=== PATIENT | male | born 1955 | race Caucasian/White ===

== ENCOUNTER 2016-05-22 07:26 | Outpatient (CLI) | payer OTHER, MEDICARE ==
[~2016-05-22] VITALS: Ht 193 cm; Wt 136.1 kg
[~2016-05-22 07:26] MED LIST: ACET500T68 PO; ASPI325T4 PO; CALC667C6 PO; CEPH-264 PO; CEPH500C PO; DOXY100C2 PO; HYDR-2678 PO; Hydralazine Hcl PO; INSU100I13 SQ; INSU100V SQ; LINE600T PO; LISI-334 PO; LOVA20TA2 PO; METO25TA4 PO; PRAV20TA2 PO; Sodium Bicarbonate PO; WARF5TAB7 PO
[2016-05-22] MEDS ORDERED: FOLI0.8T30 PO (08:00)
[2016-05-22] MEDS ORDERED: INSU100I13 SQ (08:00)
[2016-05-22] MEDS ORDERED: INSU100I11 SQ ×2 (08:00)
[2016-05-22] MEDS ORDERED: ASPI325T4 PO (08:00)
[2016-05-22 08:13] LABS: BASO # 0.1 x10^3/uL (0.0-0.2); BASO % 1 % (0-3); EOS % 2 % (0-3); HEMATOCRIT 35.6 % (39.0-53.0); HEMOGLOBIN 11.6 g/dL (13.0-17.5); LYMPH # 2.1 x10^3/uL (1.0-4.8); LYMPH % 18 % (24-48); MEAN CORPUSCULAR HEMOGLOBIN 31 pg (25-35); MEAN CORPUSCULAR HGB CONC 33 g/dL (31-37); MEAN CORPUSCULAR VOLUME 95 fL (79-100); MONO % 6 % (0-9); NEUT % 73 % (31-73); PLATELET COUNT 235 x10^3/uL (140-400); RED BLOOD COUNT 3.74 x10^6/uL (4.30-5.70); RED CELL DISTRIBUTION WIDTH 14.1 % (11.5-14.5); WHITE BLOOD COUNT 11.5 x10^3/uL (4.0-11.0)
[2016-05-22 08:22] LABS: INR 1.7 (0.8-1.1); PROTHROMBIN TIME PATIENT 19.3 SEC (11.7-14.0)
[2016-05-22 09:10] VITALS: BP 149/64
[2016-05-22] MEDS ORDERED: HEPARIN for IV BOLUS 10,000 UNIT/10 ML VIAL. ONE (10:55)
[2016-05-22] MEDS ORDERED: LIDOCAINE 1%/EPI 1:100,000 20 ML VIAL. ONE (10:55)
[2016-05-22] MEDS ORDERED: MIDAZOLAM HCL/PF 5 MG/5 ML VIAL ONE (11:01)
[2016-05-22] MEDS ORDERED: CEFAZOLIN 1GM IVPB FOR OMNI 50 ML IV ONE ×2 (11:01→11:15)
[2016-05-22] MEDS ORDERED: FENTANYL PF 250 MCG/5 ML VIAL. ONE (11:01)
[2016-05-22] MEDS ORDERED: IOHEXOL 300 MG/ML 50 ML VIAL. ONE (11:12)
[2016-05-22] MEDS ORDERED: FENTANYL PF 250 MCG/5 ML VIAL. IV ONE (11:15)
[2016-05-22] MEDS ORDERED: MIDAZOLAM HCL/PF 5 MG/5 ML VIAL IV ONE (11:15)
[2016-05-22] MEDS ORDERED: LIDOCAINE 1%/EPI 1:100,000 20 ML VIAL. IJ ONE (11:15)
[2016-05-22 11:41] VITALS: BP 122/64
--- NOTE | 2016-05-22 11:55 | PDOC ---
MODERATE SEDATION ASSESSMENT RISKS/ALTERNATIVES Risks/Alternatives Risks and alternatives of this type of sedation and procedure discussed with: RISK/ALTERNATIVES: Patient H & P ON CHART H & P H & P on chart and reviewed for co-morbid conditions and appropriate labs. H&P ON CHART: Yes STATUS PREG STATUS ASSESSED: N/A MEDS/ALLERGIES REVIEWED Meds/Allergies Reviewed Medications and Allergies including time and route of recently administered narcotics and sedatives. MEDS/ALLERGIES REVIEWED: Yes ASA RATING ASA RATING: III AIRWAY ASSESSMENT Airway Assessment Airway patency, oral function limitations, presence of caps, crowns, dentures, partials, and ability to extend neck assessed. AIRWAY ASSESSMENT: Yes MALLAMPATI SCORE MALLAMPATI SCORE: III PRE-SEDATION ASSESSMENT PRE-SEDATION ASSESSMENT: Yes TIFFANIE MODI MD May 22, 2016 11:55
--- NOTE | 2016-05-22 12:00 | PDOC1 ---
History and Physical Date of Procedure Date of Admission 05/22/16 Procedure Procedure Fluoro guided replacement tunneled HDC Indication Indication ESRD. Poorly functioning indwelling tunneled HDC. Past Medical History Past Medical History Seer Nursing Pre procedure PMH Past Surgical History Past Surgical History See Nursing Pre procedure PSH Current Medications Current Medications Current Medications Heparin Sodium (Porcine) 10,000 unit STK-MED ONCE .ROUTE ; Start 05/22/16 at 10: 55; Stop 05/22/16 at 10:56; Status DC Lidocaine/ Epinephrine 20 ml 20 ml STK-MED ONCE .ROUTE ; Start 05/22/16 at 10:55 ; Stop 05/22/16 at 10:56; Status DC Heparin Sodium/ Sodium Chloride 500 ml @ As Directed STK-MED ONCE .ROUTE ; Start 05/22/16 at 10:56; Stop 05/22/16 at 10:57; Status DC Midazolam HCl (Versed) 5 mg STK-MED ONCE .ROUTE ; Start 05/22/16 at 11:01; Stop 05/22/16 at 11:02; Status DC Fentanyl Citrate 250 mcg 250 mcg STK-MED ONCE .ROUTE ; Start 05/22/16 at 11:01; Stop 05/22/16 at 11:02; Status DC Cefazolin Sodium (Ancef 1gm Ivpb For Omni) 50 ml @ As Directed STK-MED ONCE IV ; Start 05/22/16 at 11:01; Stop 05/22/16 at 11:02; Status DC Heparin Sodium/ Sodium Chloride 1,000 unit 1X ONCE IART Last administered on 11:15; Start 05/22/16 at 11:15; Stop 05/22/16 at 11:16; Status DC Midazolam HCl (Versed) 5 mg 1X ONCE IV Last administered on 05/22/16 11:15; Start 05/22/16 at 11:15; Stop 05/22/16 at 11:16; Status DC Fentanyl Citrate (Fentanyl 5ml Vial) 250 mcg 1X ONCE IV Last administered on 11:15; Start 05/22/16 at 11:15; Stop 05/22/16 at 11:16; Status DC Lidocaine/ Epinephrine 20 ml 20 ml 1X ONCE IJ Last administered on 05/22/16 11:15; Start 05/22/16 at 11:15; Stop 05/22/16 at 11:16; Status DC Cefazolin Sodium (Ancef 1gm Ivpb For Omni) 50 ml @ 0 mls/hr 1X ONCE IV Last administered on 05/22/16 11:15; Start 05/22/16 at 11:15; Stop 05/22/16 at 11:16 ; Status DC Heparin Sodium (Porcine) 2,600 unit 1X ONCE INT CAT Last administered on 11:15; Start 05/22/16 at 11:15; Stop 05/22/16 at 11:16; Status DC Iohexol (Omnipaque 300 Mg/ml) 50 ml STK-MED ONCE .ROUTE ; Start 05/22/16 at 11: 12; Stop 05/22/16 at 11:13; Status DC Active Scripts Active Reported Aspirin 325 Mg Tablet 1 Tab PO DAILY Metoprolol Tartrate 25 Mg Tablet 50 Mg PO BID Warfarin Sodium 5 Mg Tablet 5 Mg PO DAILY Humalog (Insulin Lispro) 100 Unit/1 Ml Insuln.pen 54 Unit SQ DAILYBFRSUP Humalog (Insulin Lispro) 100 Unit/1 Ml Insuln.pen 50 Unit SQ BIDACBL Lantus Solostar (Insulin Glargine,Hum.rec.anlog) 100 Unit/1 Ml Insuln.pen 64 Unit SQ BID Allergies Allergies: Coded Allergies: I S O L A T I O N *CONTACT* (Verified Allergy, Unknown, 04/17/15) mrsa + No Known Medication Allergies (Verified Allergy, Unknown, 04/17/15) Physical Exam Vital Signs Vital Signs Date Time Temp Pulse Resp B/P Pulse Ox O2 Delivery O2 Flow Rate FiO2 05/22/16 11:41 80 16 98 Nasal Cannula 2.0 05/22/16 09:10 99.2 149/64 99.2 Lungs: Clear to auscultation Heart: Regular rate Psych/Mental Status: Mental status NL Other Right IJ tunneled HDC in place. Assessment Assessment 60 YO male with ESRD and no functioning AV access. Indwelling rt IJ tunneled HDC is poorly functioning. Problems: Plan Plan Fluoro guided complete replacement of tunneled HDC. Plan same venous access, new SubQ tunnel, and balloon disruption of any fibrin sheath. TIFFANIE MODI MD May 22, 2016 12:00
[2016-05-22 12:04] VITALS: BP 133/72
--- NOTE | 2016-05-22 12:05 | PDOC ---
Exam Environmental Studies Faculty Member Environmental Studies Faculty Member Rudy Bridge Ironworker Helper Bridge Ironworker Helper Melissa Zelaya Pre-Procedure Diagnosis Pre-Procedure Diagnosis ESRD. No functioning AV access. Poorly functioning tunneled HDC. Tunneled HDC replacement has been requested. Post-Procedure Diagnosis Post-Procedure Diagnosis Same Procedure Performed Procedure Performed Fluoro guided tunneled HDC replacement--same rt IJ access--new subQ tunnel-- balloon disruption of SVC-RA fibrin sheath Type of Anesthesia Type of Anesthesia Local + Mod sedation Estimated Blood Loss EBL: Minimal Specimens Specimans 15.5F 28cm right IJ DuraMax tunneled HDC removed and discarded Drain/Tubes Drains/Tubes New 15.5F 28cm DuraMax rt IJ tunneled HDC inserted Condition of Patient Condition of Patient Stable. No apparent complication. Disposition Disposition Home from [facility] post recovery, if no bleeding or other issues. F/u with Renal. OK to use new tunneled HDC. Full report to follow. TIFFANIE MODI MD May 22, 2016 12:05
[2016-05-22 12:13] VITALS: BP 139/65
--- NOTE | 2016-05-22 17:02 | RAD ---
Fluoroscopy guided complete replacement of tunneled hemodialysis catheter through same right IJ venous access Indication: 60-year-old male with end stage renal disease. He has no functioning AV access. His indwelling right IJ tunneled hemodialysis catheter is now functioning poorly. Tunneled dialysis catheter replacement has been requested by renal. Fluoro time: 1.0 minute Kerma-Area Product: 8 Gycm2 Moderate sedation: 32 minutes moderate sedation was provided utilizing a total of 3 mg Versed and 150 mcg fentanyl, IV. The patient was appropriately monitored by a qualified independent observer throughout the time of moderate sedation. Antibiotic: A single dose of Ancef was administered within 1 hour of the procedure start time. Sterility: All elements of maximal sterile barrier technique, including the use of a cap, mask, sterile gown, sterile gloves, large sterile sheet, appropriate hand hygiene, and 2% chlorhexidine for cutaneous antisepsis (or acceptable alternative antiseptic per current guidelines) were utilized. Procedure: Informed consent was obtained from the patient. He was placed supine on the angiography table. Right neck and upper chest were prepped and draped in the usual sterile fashion, utilizing all elements of maximal sterile barrier technique, as described above. Moderate sedation was provided with IV Versed and fentanyl. 1 g Ancef was given IV, prophylactically. Using aseptic technique and local anesthesia, a small supraclavicular skin incision was made overlying the patient's indwelling, poorly functioning right IJ 15.5 Peruvian 28 cm dura Max tunneled dialysis catheter. Subsequently, utilizing a combination of blunt and sharp dissection, the underlying dialysis catheter was exposed, was clamped, and was divided. The distal, clamped segment of the dialysis catheter was then exchanged over an Amplatz wire for a 12 mm x 40 mm ACADEMIC SUPPORT ASSISTANT balloon, which was utilized to perform balloon maceration of residual fibrin sheath within right atrium and superior vena cava. The ACADEMIC SUPPORT ASSISTANT balloon was then exchanged over the Amplatz wire for a 16 Peruvian peel-away sheath. Using aseptic technique and local anesthesia, a new small skin incision was then made along upper anterior lateral aspect of right chest. A subcutaneous tunnel was then fashioned between the chest and supraclavicular incisions. A new 15.5 Peruvian 28 cm dura Max dialysis catheter was pulled through the subcutaneous tunnel from inferior to superior, utilizing the tunneling device provided. The new dura Max catheter was then easily advanced through the 16 Peruvian peel-away sheath and was positioned with its tip at the level of mid right atrium utilizing fluoroscopic guidance. The catheter was demonstrated to flush and aspirate normally, was packed, and was secured at the chest exit site utilizing suture and sterile dressing. The supraclavicular incision was then closed with 4-0 Vicryl, Steri-Strips, and sterile dressing. Attention was then turned to the remaining proximal fragment of the pre-existing right IJ tunneled dialysis catheter. Using aseptic technique and local anesthesia, retention cuff of the proximal catheter fragment was freed from surrounding soft tissues within the previous subcutaneous tunnel utilizing a small mosquito hemostat introduced through the right chest skin exit site. The proximal catheter fragment was then easily removed utilizing gentle traction. A sterile dressing was applied. Patient tolerated the procedures well without apparent complication. Complete removal of the previous dialysis catheter and satisfactory position of the new dialysis catheter was confirmed with pre and postprocedure fluoroscopic spot images. Impression: Successful, uneventful fluoroscopy guided complete replacement of right chest tunneled hemodialysis catheter, via same right IJ venous access, but new subcutaneous tunnel, as described.
== END 2016-05-22 13:00 | disposition home or self-care (01) ==
LOC: INTRAD 07:26
PROVIDERS: ATTEND Internal Medicine Nephrology
DX: I12.0 Hypertensive chronic kidney disease with stage 5 chronic kidney disease or end stage renal disease (principal); N18.6 End stage renal disease; Z99.2 Dependence on renal dialysis; G62.9 Polyneuropathy, unspecified; E78.00 Pure hypercholesterolemia, unspecified; I10 Essential (primary) hypertension; I95.9 Hypotension, unspecified; E66.9 Obesity, unspecified; E11.9 Type 2 diabetes mellitus without complications; Z87.891 Personal history of nicotine dependence; D64.9 Anemia, unspecified
CPT/HCPCS: 36415; 36581; 77001; 85027; 85610; A4215; C1750; C1758; C1892; J0690; J2250; J3010; J3490

== ENCOUNTER 2016-11-06 05:36 | Outpatient (CLI) | payer OTHER, MEDICARE ==
[~2016-11-06] VITALS: Ht 193 cm; Wt 149.7 kg
[~2016-11-06 05:36] MED LIST changes: -ASPI325T4 PO; +ASPI325T8 PO; +FOLI0.8T30 PO; +INSU100I11 SQ
[2016-11-06 07:21] LABS: BASO # 0.1 x10^3/uL (0.0-0.2); BASO % 1 % (0-3); EOS % 4 % (0-3); HEMOGLOBIN 12.2 g/dL (13.0-17.5); LYMPH # 2.7 x10^3/uL (1.0-4.8); LYMPH % 26 % (24-48); MEAN CORPUSCULAR HEMOGLOBIN 33 pg (25-35); MEAN CORPUSCULAR HGB CONC 32 g/dL (31-37); MEAN CORPUSCULAR VOLUME 101 fL (79-100); MONO % 8 % (0-9); NEUT % 62 % (31-73); PLATELET COUNT 236 x10^3/uL (140-400); RED BLOOD COUNT 3.75 x10^6/uL (4.30-5.70); RED CELL DISTRIBUTION WIDTH 18.1 % (11.5-14.5); WHITE BLOOD COUNT 10.6 x10^3/uL (4.0-11.0)
[2016-11-06 07:30] VITALS: BP 98/56
[2016-11-06 07:32] LABS: INR 1.3 (0.8-1.1); PROTHROMBIN TIME PATIENT 15.3 SEC (11.7-14.0)
[2016-11-06] MEDS ORDERED: LIDOCAINE 1%/EPI 1:100,000 20 ML VIAL. ONE (08:06)
[2016-11-06] MEDS ORDERED: fentaNYL PF VIAL 100 MCG/2 ML VIAL ONE (08:32)
[2016-11-06] MEDS ORDERED: MIDAZOLAM HCL/PF 2 MG/2 ML VIAL. ONE (08:32)
[2016-11-06] MEDS ORDERED: MIDAZOLAM HCL/PF 2 MG/2 ML VIAL. IV ONE (08:45)
[2016-11-06] MEDS ORDERED: fentaNYL PF VIAL 100 MCG/2 ML VIAL IV ONE (08:45)
[2016-11-06] MEDS ORDERED: LIDOCAINE 1%/EPI 1:100,000 20 ML VIAL. INJ ONE (08:45)
[2016-11-06 08:53] VITALS: BP 106/61
[2016-11-06 09:09] VITALS: BP 91/50
[2016-11-06 09:24] VITALS: BP 97/50
[2016-11-06 09:39] VITALS: BP 105/55
--- NOTE | 2016-11-07 16:09 | RAD ---
Removal of right internal jugular tunnel dialysis catheter 11/07/2016 Indication: Catheter no longer needed Discussion: The risks and benefits of the procedure were discussed patient. Consent was obtained. The right chest including the previously dialysis catheter were prepped and draped using sterile barrier technique. 1% lidocaine without epinephrine was administered to the skin surrounding the catheter exit site. Using minimal blunt and sharp dissection the catheter cuff was freed and the catheter removed intact. Manual pressure was held to achieve hemostasis. No immediate complications were identified. Sterile dressing was applied. Impression: Successful removal of right internal jugular tunnel dialysis catheter
== END 2016-11-06 09:56 | disposition home or self-care (01) ==
LOC: INTRAD 05:36
PROVIDERS: ATTEND Internal Medicine Nephrology
DX: I12.0 Hypertensive chronic kidney disease with stage 5 chronic kidney disease or end stage renal disease (principal); E11.22 Type 2 diabetes mellitus with diabetic chronic kidney disease; N18.6 End stage renal disease; Z99.2 Dependence on renal dialysis; E78.00 Pure hypercholesterolemia, unspecified; I82.409 Acute embolism and thrombosis of unspecified deep veins of unspecified lower extremity; E66.9 Obesity, unspecified; Z68.44 Body mass index [BMI] 60.0-69.9, adult; Z86.39 Personal history of other endocrine, nutritional and metabolic disease; D64.9 Anemia, unspecified; Z86.14 Personal history of Methicillin resistant Staphylococcus aureus infection
CPT/HCPCS: 36415; 36589; 85027; 85610; C1887; J2250; J3010; J3490; 99152

== ENCOUNTER 2017-01-21 14:05 | Emergency (ER) | payer OTHER, MEDICARE ==
[~2017-01-21] VITALS: Ht 193 cm; Wt 150.1 kg
[2017-01-21] MEDS ORDERED: TRANEXAMIC ACID 1,000 MG/10 ML VIAL. TOP ONE (15:00)
[2017-01-21] MEDS ORDERED: THROMBIN TOPICAL 5,000 UNIT VIAL. TP ONE (15:00)
--- NOTE | 2017-01-21 15:06 | PHYS DOC ---
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 Patient last accessed fistula this morning and completed dialysis at 11 AM. 1 hour prior to ED arrival, patient reports spontaneous bleeding from fistula site. EMS was contacted and noted hemorrhage. Compression dressing was placed with temper control bleeding. Patient's blood pressure is normal. He is compliant with medications. Patient has not had INR checked recently. Denies dizziness lightheadedness chest pain and palpitations. AV fistula was placed at [facility]. Review of Systems Review of Systems Review symptoms as per history of present illness. All other review symptoms are negative. Current Medications Current Medications Current Medications Medications (Trade) Dose Ordered Sig/Cristian Start Time Stop Time Status Last Admin Dose Admin Thrombin 5,000 unit 1X ONCE 01/21/17 15:00 01/21/17 15:03 DC Tranexamic Acid (Cyklokapron) 1,000 mg 1X ONCE 01/21/17 15:00 01/21/17 15:03 DC Allergies Allergies Allergies Coded Allergies Type Severity Reaction Last Updated Verified I S O L A T I O N *CONTACT* Allergy Unknown 04/17/15 Yes No Known Medication Allergies Allergy Unknown 04/17/15 Yes Physical Exam Physical Exam Constitutional: Well developed, well nourished, no acute distress, non-toxic appearance. [] HENT: Normocephalic, atraumatic, bilateral external ears normal, oropharynx moist, no oral exudates, nose normal. [] Eyes: PERRLA, EOMI, conjunctiva normal, no discharge. [] Neck: Normal range of motion, no tenderness, supple, no stridor. [] Cardiovascular:Heart rate regular rhythm, no murmur [] Lungs & Thorax: Bilateral breath sounds clear to auscultation [] Extremities: Warm, bloodsoaked bandage with bleeding from brachial AV fistula, bleeding from dialysis insertion site, pulse with palpable thrill, [] Neurologic: Alert and oriented X 3, normal motor function, normal sensory function, no focal deficits noted. [] Psychologic: Affect normal, judgement normal, mood normal. [] Current Patient Data Vital Signs Vital Signs Date Time Temp Pulse Resp B/P (MAP) Pulse Ox O2 Delivery O2 Flow Rate FiO2 01/21/17 14:10 98.6 110 20 148/75 (99) 94 Room Air 98.6 Lab Values Laboratory Tests Test 01/21/17 15:10 White Blood Count 12.1 x10^3/uL (4.0-11.0) H Red Blood Count 3.53 x10^6/uL (4.30-5.70) L Hemoglobin 11.4 g/dL (13.0-17.5) L Hematocrit 34.1 % (39.0-53.0) L Mean Corpuscular Volume 97 fL (79-100) Mean Corpuscular Hemoglobin 32 pg (25-35) Mean Corpuscular Hemoglobin Concent 34 g/dL (31-37) Red Cell Distribution Width 16.0 % (11.5-14.5) H Platelet Count 276 x10^3/uL (140-400) Neutrophils (%) (Auto) 78 % (31-73) H Lymphocytes (%) (Auto) 14 % (24-48) L Monocytes (%) (Auto) 4 % (0-9) Eosinophils (%) (Auto) 3 % (0-3) Basophils (%) (Auto) 1 % (0-3) Neutrophils # (Auto) 9.4 x10^3uL (1.8-7.7) H Lymphocytes # (Auto) 1.7 x10^3/uL (1.0-4.8) Monocytes # (Auto) 0.5 x10^3/uL (0.0-1.1) Eosinophils # (Auto) 0.4 x10^3/uL (0.0-0.7) Basophils # (Auto) 0.1 x10^3/uL (0.0-0.2) Prothrombin Time 44.9 SEC (11.7-14.0) H Prothrombin Time INR 5.2 (0.8-1.1) *H Sodium Level 138 mmol/L (136-145) Potassium Level 3.9 mmol/L (3.5-5.1) Chloride Level 96 mmol/L (98-107) L Carbon Dioxide Level 36 mmol/L (21-32) H Anion Gap 6 (6-14) Blood Urea Nitrogen 19 mg/dL (8-26) Creatinine 5.4 mg/dL (0.7-1.3) H Estimated GFR (Cockcroft-Gault) 10.9 BUN/Creatinine Ratio 4 (6-20) L Glucose Level 197 mg/dL (70-99) H Calcium Level 9.3 mg/dL (8.5-10.1) Total Bilirubin 0.3 mg/dL (0.2-1.0) Aspartate Amino Transferase (AST) 22 U/L (15-37) Alanine Aminotransferase (ALT) 34 U/L (16-63) Alkaline Phosphatase 47 U/L (46-116) Total Protein 8.4 g/dL (6.4-8.2) H Albumin 3.1 g/dL (3.4-5.0) L Albumin/Globulin Ratio 0.6 (1.0-1.7) L Laboratory Tests 01/21/17 15:10 Laboratory Tests 01/21/17 15:10 EKG EKG [] Radiology/Procedures Radiology/Procedures [] Course & Med Decision Making Course & Med Decision Making Pertinent Labs and Imaging studies reviewed. (See chart for details) [Patient's INR is 5.8. Bleeding continued to occur despite use of bandage per EMS. Bleeding was eventually stop with assistance of fellow colleague Dr. Vázquez. Patient's AV fistula was briefly stopped with pressure and wound adhesive was applied over the insertion site with Steri-Strips on top. This process was repeated. Bleeding stopped. Patient instructed to hold Coumadin 2 days and recheck INR. ] Dragon Disclaimer Dragon Disclaimer This electronic medical record was generated, in whole or in part, using a voice recognition dictation system. Departure Departure Impression: Primary Impression: Bleeding due to dialysis catheter placement Additional Impression: Warfarin anticoagulation Disposition: 01 HOME, SELF-CARE Referrals: CHUCKY MENA MD (PCP) Problem Qualifiers MERCY ROGEL DO Jan 21, 2017 15:06
[2017-01-21 15:21] LABS: BASO # 0.1 x10^3/uL (0.0-0.2); BASO % 1 % (0-3); EOS % 3 % (0-3); HEMATOCRIT 34.1 % (39.0-53.0); HEMOGLOBIN 11.4 g/dL (13.0-17.5); LYMPH # 1.7 x10^3/uL (1.0-4.8); LYMPH % 14 % (24-48); MEAN CORPUSCULAR HEMOGLOBIN 32 pg (25-35); MEAN CORPUSCULAR HGB CONC 34 g/dL (31-37); MEAN CORPUSCULAR VOLUME 97 fL (79-100); MONO % 4 % (0-9); NEUT % 78 % (31-73); PLATELET COUNT 276 x10^3/uL (140-400); RED BLOOD COUNT 3.53 x10^6/uL (4.30-5.70); WHITE BLOOD COUNT 12.1 x10^3/uL (4.0-11.0)
[2017-01-21 15:36] LABS: CALCIUM 9.3 mg/dL (8.5-10.1); CREATININE 5.4 mg/dL (0.7-1.3); GFR 10.9; POTASSIUM 3.9 mmol/L (3.5-5.1)
[2017-01-21 15:37] LABS: PROTHROMBIN TIME PATIENT 44.9 SEC (11.7-14.0)
[2017-01-21 15:42] LABS: ALBUMIN 3.1 g/dL (3.4-5.0); ALBUMIN/GLOBULIN RATIO 0.6 (1.0-1.7); TOTAL BILIRUBIN 0.3 mg/dL (0.2-1.0); TOTAL PROTEIN 8.4 g/dL (6.4-8.2)
[2017-01-21 15:45] LABS: INR 5.2 (0.8-1.1)
[2017-01-21 16:35] VITALS: BP 129/72
== END 2017-01-21 16:45 | disposition home or self-care (01) ==
LOC: ER 14:05
DX: T82.590A Other mechanical complication of surgically created arteriovenous fistula, initial encounter (principal); E11.40 Type 2 diabetes mellitus with diabetic neuropathy, unspecified; I12.9 Hypertensive chronic kidney disease with stage 1 through stage 4 chronic kidney disease, or unspecified chronic kidney disease; E11.22 Type 2 diabetes mellitus with diabetic chronic kidney disease; N18.9 Chronic kidney disease, unspecified; E78.00 Pure hypercholesterolemia, unspecified; Z79.01 Long term (current) use of anticoagulants; Z86.711 Personal history of pulmonary embolism; Z86.718 Personal history of other venous thrombosis and embolism; Z99.2 Dependence on renal dialysis; Z91.041 Radiographic dye allergy status; Y84.1 Kidney dialysis as the cause of abnormal reaction of the patient, or of later complication, without mention of misadventure at the time of the procedure; Y92.89 Other specified places as the place of occurrence of the external cause
CPT/HCPCS: 36415; 80053; 85025; 85610; 99284

== ENCOUNTER 2017-06-26 14:13 | Emergency (ER) | payer OTHER, MEDICARE ==
[2017-06-26 15:16] LABS: ADD MAN DIFF? NO
[2017-06-26 15:18] LABS: BASO % 0 % (0-3); EOS # 0.1 x10^3/uL (0.0-0.7); EOS % 2 % (0-3); HEMATOCRIT 34.1 % (39.0-53.0); HEMOGLOBIN 11.9 g/dL (13.0-17.5); LYMPH # 0.7 x10^3/uL (1.0-4.8); LYMPH % 13 % (24-48); MEAN CORPUSCULAR HEMOGLOBIN 33 pg (25-35); MEAN CORPUSCULAR HGB CONC 35 g/dL (31-37); MEAN CORPUSCULAR VOLUME 95 fL (79-100); MONO # 0.4 x10^3/uL (0.0-1.1); MONO % 7 % (0-9); NEUT # 4.6 x10^3uL (1.8-7.7); NEUT % 78 % (31-73); PLATELET COUNT 154 x10^3/uL (140-400); RED BLOOD COUNT 3.58 x10^6/uL (4.30-5.70); RED CELL DISTRIBUTION WIDTH 13.9 % (11.5-14.5); WHITE BLOOD COUNT 5.9 x10^3/uL (4.0-11.0)
[2017-06-26] MEDS: IV NORMAL SALINE 1000ML BAG 250 ML IV (15:20)
[2017-06-26 15:30] LABS: ANION GAP 11 (6-14); BLOOD UREA NITROGEN 20 mg/dL (8-26); BUN/CREATININE RATIO 4 (6-20); CALCIUM 7.6 mg/dL (8.5-10.1); CARBON DIOXIDE 31 mmol/L (21-32); CHLORIDE 98 mmol/L (98-107); CREATININE 5.2 mg/dL (0.7-1.3); GFR 11.3; GLUCOSE 141 mg/dL (70-99); POTASSIUM 3.8 mmol/L (3.5-5.1); SODIUM 140 mmol/L (136-145)
[2017-06-26 15:36] LABS: ALBUMIN 2.6 g/dL (3.4-5.0); ALBUMIN/GLOBULIN RATIO 0.5 (1.0-1.7); ALK PHOS 73 U/L (46-116); ALT (SGPT) 54 U/L (16-63); AST (SGOT) 66 U/L (15-37); CREATINE KINASE 298 U/L (39-308); MAGNESIUM 1.7 mg/dL (1.8-2.4); TOTAL BILIRUBIN 0.5 mg/dL (0.2-1.0); TOTAL PROTEIN 7.6 g/dL (6.4-8.2)
[2017-06-26] MEDS: ACETAMINOPHEN 500 MG TABLET PO (17:53)
[2017-06-26] MEDS: ONDANSETRON PF 4 MG/2 ML VIAL. IV (17:54)
[2017-06-26 18:14] LABS: LACTIC ACID 2.2 mmol/L (0.4-2.0)
[2017-06-26 18:38] LABS: BILIRUBIN,URINE NEGATIVE (NEG); CLARITY,URINE CLOUDY; COLOR,URINE YELLOW; GLUCOSE,URINE 100 mg/dL (NEG); NITRITE,URINE NEGATIVE (NEG); PROTEIN,URINE >=300 mg/dL (NEG-TRACE); UROBILINOGEN,URINE 0.2 mg/dL (0.2 mg/dL)
[2017-06-26 18:40] LABS: INFLUENZA A PATIENT NEGATIVE (NEGATIVE); INFLUENZA B PATIENT POSITIVE (NEGATIVE); OBC FLU VALID
[2017-06-26 18:59] LABS: SQUAMOUS EPITHELIAL CELL,UR FEW /LPF
[2017-06-26 19:00] LABS: RBC,URINE OCC /HPF (0-2)
[2017-06-26 19:01] LABS: BACTERIA,URINE 0 /HPF (0-FEW); WBC,URINE RARE /HPF (0-4)
== END 2017-06-26 19:13 | disposition left against medical advice (07) ==
LOC: ER 14:13 → ED HOLD 18:19
DX: J10.1 Influenza due to other identified influenza virus with other respiratory manifestations (principal); A41.89 Other specified sepsis; I12.0 Hypertensive chronic kidney disease with stage 5 chronic kidney disease or end stage renal disease; E11.22 Type 2 diabetes mellitus with diabetic chronic kidney disease; N18.6 End stage renal disease; E78.00 Pure hypercholesterolemia, unspecified; E11.40 Type 2 diabetes mellitus with diabetic neuropathy, unspecified; Z86.718 Personal history of other venous thrombosis and embolism; Z86.14 Personal history of Methicillin resistant Staphylococcus aureus infection; Z86.711 Personal history of pulmonary embolism; Z99.2 Dependence on renal dialysis; Z91.041 Radiographic dye allergy status
CPT/HCPCS: 36415; 71045; 80053; 81001; 82550; 83605; 83735; 85025; 87040; 87804; 87804-59; 93005; 96360; 99285-25; J7030

== ENCOUNTER 2018-07-30 11:26 | Emergency (ER) | payer MEDICARE, OTHER ==
[~2018-07-30] VITALS: Ht 193 cm; Wt 152.4 kg
[~2018-07-30 11:26] MED LIST changes: +ONDA4TAB10 PO; +OSEL75CA PO; +WARF-31 PO; -WARF5TAB7 PO
[2018-07-30] MEDS ORDERED: IV NORMAL SALINE 500ML BAG 500 ML IV ONE (11:45)
--- NOTE | 2018-07-30 12:08 | RAD ---
Portable chest, 07/30/2018: HISTORY: Syncope Comparison is made to a study from 06/26/2017. The heart size and pulmonary vascularity are normal. Unchanged widening of the superior mediastinum is probably due to mediastinal fat. An unchanged nodule in the right upper lobe is probably a granuloma. No acute infiltrate is seen. There is no evidence of pleural fluid. IMPRESSION: No acute cardiopulmonary abnormality is detected. Electronically signed by: Primo Koch MD (07/30/2018 12:05 PM) [facility]
[2018-07-30 12:16] LABS: BASO # 0.1 x10^3/uL (0.0-0.2); BASO % 1 % (0-3); EOS # 0.2 x10^3/uL (0.0-0.7); EOS % 2 % (0-3); LYMPH # 1.7 x10^3/uL (1.0-4.8); LYMPH % 14 % (24-48); MEAN CORPUSCULAR HEMOGLOBIN 32 pg (25-35); MEAN CORPUSCULAR HGB CONC 33 g/dL (31-37); MEAN CORPUSCULAR VOLUME 95 fL (79-100); MONO # 0.7 x10^3/uL (0.0-1.1); MONO % 6 % (0-9); NEUT # 9.5 x10^3uL (1.8-7.7); NEUT % 78 % (31-73); PLATELET COUNT 230 x10^3/uL (140-400); RED BLOOD COUNT 3.77 x10^6/uL (4.30-5.70); RED CELL DISTRIBUTION WIDTH 14.3 % (11.5-14.5); WHITE BLOOD COUNT 12.2 x10^3/uL (4.0-11.0)
--- NOTE | 2018-07-30 12:27 | EKG ---
[facility] [address] [place] [address] Test Date: 2018-07-30 Test Time: 11:41:32 Pat Name: ELENITA SHEPHERD Department: Room: Gender: M Matlab Developer: : [id number] Requested By: KYLIE HENDRIX Order Number: [id number] Reading MD: Gerardo Brennan MD Measurements Intervals Cavalier Rate: 75 P: -36 [place]: 138 QRS: -43 QRSD: 124 T: 90 QT: 436 QTc: 490 Interpretive Statements SINUS RHYTHM ABNORMAL LEFT AXIS DEVIATION LEFT ANTERIOR FASCICULAR BLOCK RIGHT BUNDLE BRANCH BLOCK BIFASCICULAR BLOCK ABNORMAL ECG Electronically Signed On 08-03-2018 14:56:43 CDT by Gerardo Brennan MD
[2018-07-30 12:32] LABS: CALCIUM 9.4 mg/dL (8.5-10.1); CREATININE 6.6 mg/dL (0.7-1.3); GFR 8.6; POTASSIUM 3.8 mmol/L (3.5-5.1)
--- NOTE | 2018-07-30 12:32 | PHYS DOC ---
Past Medical History Past Medical History: Diabetes-Type II, DVT, Renal Failure, Other Additional Past Medical Histor: neuropathy, PE (KYLIE HENDRIX APRN) Past Surgical History: Other Additional Past Surgical Histo: colon resection (KYLIE HENDRIX APRN) Alcohol Use: None Drug Use: None (KYLIE HENDRIX APRN) Adult General Chief Complaint Chief Complaint: SYNCOPE HPI HPI 63-year-old male presents to ER via EMS from his dialysis Center following a syncope episode. EMS reports staff witnessed patient completely losing consciousness while sitting in the dialysis chair they denied any fall or injury. EMS report patient has been alert and oriented 3 for them and at time of arrival is as well. Patient is denying any chest pain, palpitations, or shortness of air. EMS reports patient had half of his dialysis and staff at the Center reported patient has had similar episodes however he was nearly complete on his dialysis with those episodes. Pt denies any recent illness. He reports he is fatigued currently but denies any focal weakness. (KYLIE HENDRIX APRN) Review of Systems Review of Systems Constitutional: Denies fever or chills. Reports feeling fatigued Eyes: Denies change in visual acuity, redness, or eye pain [] HENT: Denies nasal congestion or sore throat [] Respiratory: Denies cough or shortness of breath [] Cardiovascular: Denies CP/palpitations GI: Denies abdominal pain, nausea, vomiting, bloody stools or diarrhea [] : Denies dysuria or hematuria [] Musculoskeletal: Denies back/neck pain or joint pain [] Integument: Denies rash or skin lesions [] Neurologic: Denies headache, focal weakness or sensory changes [] Endocrine: Denies polyuria or polydipsia [] All other systems were reviewed and found to be within normal limits, except as documented in this note. (KYLIE HENDRIX APRN) Current Medications Current Medications Current Medications Medications (Trade) Dose Ordered Sig/Cristian Start Time Stop Time Status Last Admin Dose Admin Sodium Chloride 500 ml @ 500 mls/hr 1X ONCE 07/30/18 11:45 07/30/18 12:44 DC 07/30/18 12:07 500 MLS/HR (SAMARIA FAIR MD) Allergies Allergies Allergies Coded Allergies Type Severity Reaction Last Updated Verified I S O L A T I O N *CONTACT* Allergy Unknown 04/17/15 Yes No Known Medication Allergies Allergy Unknown 04/17/15 Yes (SAMARIA FAIR MD) Physical Exam Physical Exam Constitutional: Well developed, well nourished, no acute distress, non-toxic appearance. Clear speech HENT: Normocephalic, atraumatic, bilateral ears normal, mucous membranes pink/ dry, no oral exudates, nose normal. [] Eyes: 3mm PERRLA, EOMI- no pain with eye movements, no nystagmus, conjunctiva normal, no discharge. [] Neck: Normal range of motion, no tenderness, supple, no stridor. [] Cardiovascular: Heart rate regular rhythm, no murmur [] Lungs & Thorax: Bilateral breath sounds clear to auscultation. Resp. equal/ nonlabored Abdomen: Bowel sounds normal, soft/obese, no tenderness/distention, no masses, no pulsatile masses. [] Skin: Warm, dry, no erythema, no rash. [] Back: No tenderness, no CVA tenderness. [] Extremities: No tenderness, no cyanosis, no clubbing, ROM intact, 1-2+ nonpitting edema w/pt reporting chronic no acute changes Neurologic: Alert and oriented X 3, normal motor function, normal sensory function, no focal deficits noted. [] Psychologic: Affect normal, judgement normal, mood normal. [] (REFFITT,KYLIE Akins APRN) Current Patient Data Vital Signs Vital Signs Date Time Temp Pulse Resp B/P (MAP) Pulse Ox O2 Delivery O2 Flow Rate FiO2 07/30/18 14:20 78 131/52 (78) 95 Room Air 07/30/18 11:38 97.5 18 97.5 (SAMARIA FAIR MD) Lab Values Laboratory Tests Test 07/30/18 12:00 07/30/18 12:14 07/30/18 14:18 White Blood Count 12.2 x10^3/uL (4.0-11.0) H Red Blood Count 3.77 x10^6/uL (4.30-5.70) L Hemoglobin 12.0 g/dL (13.0-17.5) L Hematocrit 36.0 % (39.0-53.0) L Mean Corpuscular Volume 95 fL (79-100) Mean Corpuscular Hemoglobin 32 pg (25-35) Mean Corpuscular Hemoglobin Concent 33 g/dL (31-37) Red Cell Distribution Width 14.3 % (11.5-14.5) Platelet Count 230 x10^3/uL (140-400) Neutrophils (%) (Auto) 78 % (31-73) H Lymphocytes (%) (Auto) 14 % (24-48) L Monocytes (%) (Auto) 6 % (0-9) Eosinophils (%) (Auto) 2 % (0-3) Basophils (%) (Auto) 1 % (0-3) Neutrophils # (Auto) 9.5 x10^3uL (1.8-7.7) H Lymphocytes # (Auto) 1.7 x10^3/uL (1.0-4.8) Monocytes # (Auto) 0.7 x10^3/uL (0.0-1.1) Eosinophils # (Auto) 0.2 x10^3/uL (0.0-0.7) Basophils # (Auto) 0.1 x10^3/uL (0.0-0.2) Sodium Level 139 mmol/L (136-145) Potassium Level 3.8 mmol/L (3.5-5.1) Chloride Level 97 mmol/L (98-107) L Carbon Dioxide Level 31 mmol/L (21-32) Anion Gap 11 (6-14) Blood Urea Nitrogen 29 mg/dL (8-26) H Creatinine 6.6 mg/dL (0.7-1.3) H Estimated GFR (Cockcroft-Gault) 8.6 BUN/Creatinine Ratio 4 (6-20) L Glucose Level 152 mg/dL (70-99) H Calcium Level 9.4 mg/dL (8.5-10.1) Magnesium Level 2.0 mg/dL (1.8-2.4) Total Bilirubin 0.2 mg/dL (0.2-1.0) Aspartate Amino Transferase (AST) 22 U/L (15-37) Alanine Aminotransferase (ALT) 32 U/L (16-63) Alkaline Phosphatase 80 U/L (46-116) Troponin I Quantitative 0.018 ng/mL (0.000-0.055) 0.019 ng/mL (0.000-0.055) Total Protein 8.4 g/dL (6.4-8.2) H Albumin 3.2 g/dL (3.4-5.0) L Albumin/Globulin Ratio 0.6 (1.0-1.7) L Glucose (Fingerstick) 135 mg/dL (70-99) H Laboratory Tests 07/30/18 12:00 Laboratory Tests 07/30/18 12:00 (SAMARIA FAIR MD) EKG EKG EKG obtained 07/30/18 at 1141 Interpreted by ER physician- compared to EKG from 06/26/17 in pt's records change in V2 otherwise similar tracing Sinus rhythm Lt axis deviation Rt BBB Rate 75 (KYLIE HENDRIX APRN) Radiology/Procedures Radiology/Procedures PROCEDURE: PORTABLE CHEST 1V Portable chest, 07/30/2018: HISTORY: Syncope Comparison is made to a study from 06/26/2017. The heart size and pulmonary vascularity are normal. Unchanged widening of the superior mediastinum is probably due to mediastinal fat. An unchanged nodule in the right upper lobe is probably a granuloma. No acute infiltrate is seen. There is no evidence of pleural fluid. IMPRESSION: No acute cardiopulmonary abnormality is detected. Electronically signed by: Primo Koch MD (07/30/2018 12:05 PM) [facility] DICTATED and SIGNED BY: PRIMO KOCH MD DATE: 07/30/18 1205 (KYLIE HENDRIX APRN) Course & Med Decision Making Course & Med Decision Making Pertinent Labs and Imaging studies reviewed. (See chart for details) 1240: On reevaluation patient reports he is still feeling fatigued but following IV fluids he feels his symptoms have improved- 500cc IV NS bolus given as pt is on daily fld restrictions. He remains alert and oriented 3 with clear speech. Pt's is at bedside. Pt continues to deny any CP/SOA. 1340: Discussed test results with patient and his . EKG with no acute ST elevation/STEMI was change on today's EKG from EKG on 06/26/17 in V2 otherwise similar tracing. Troponin 0.018. Potassium normal limits at 3.8. WBCs at 12.2 no bands which may have been r/t syncope/stress of dialysis as pt is afebrile and chest xray neg. for acute findings. Renal function elevated however patient only received half of his dialysis. Discussed admission for further monitoring and repeat of cardiac serial enzymes with pt having reported syncope episode. Patient is not wanting to be admitted as he is feeling okay with no symptoms after IV 500 mL fluid bolus. Patient continues to deny any chest pain, palpitations, shortness of air, or abdominal pain. Patient verbalized understanding of benefits from admission however is still not wanting to be admitted. Further discussion had with patient and he is agreeable with repeat troponin and if normal limits he is wanting to be discharged home. Patient states he did have a stress test in March 2018 which was reported to him as NL. Pt's repeat troponin was 0.019 which was discussed with pt and his . He remains A&Ox3 and in no distress denying any pain/SOA. He is sitting in chair at bedside and denies any dizziness when ambulating. Pt has been unable to provide UA which he reports he produces only sm. amt daily and has had no urinary sxs in recent days. Again admission discussed and pt adamant on home d/ c. He plans to f/u with his PCP next week and states if he has sxs or any concerns he would return to ER. Education provided on s&s to return to ER for and d/c instructions discussed. Pt's case and plan of care was discussed with Dr. Fair. (KYLIE HENDRIX APRN) Course & Med Decision Making Staff Physician Addendum: I was working in the ER during the course of this patient's visit. I was available for consultation as needed, but I was not directly involved in the care of this patient. (SAMARIA FAIR MD) Dragon Disclaimer Dragon Disclaimer This electronic medical record was generated, in whole or in part, using a voice recognition dictation system. (KYLIE HENDRIX APRN) Departure Departure Impression: Primary Impression: Syncope Disposition: 01 HOME, SELF-CARE Condition: STABLE Referrals: CHUCKY MENA MD (PCP) Patient Instructions: Syncope Additional Instructions: Drink fluids and eat a well balanced meal. Follow-up with your doctor the beginning of next week for re-evaluation. If symptoms return or with concerns return to the Emergency Department for re- evaluation. KYLIE HENDRIX APRN Jul 30, 2018 12:32 SAMARIA FAIR MD Aug 11, 2018 18:22
[2018-07-30 12:38] LABS: ALBUMIN 3.2 g/dL (3.4-5.0); ALBUMIN/GLOBULIN RATIO 0.6 (1.0-1.7); TOTAL BILIRUBIN 0.2 mg/dL (0.2-1.0); TOTAL PROTEIN 8.4 g/dL (6.4-8.2)
[2018-07-30 14:20] VITALS: BP 131/52
== END 2018-07-30 16:35 | disposition home or self-care (01) ==
LOC: ER 11:26
DX: R55 Syncope and collapse (principal); R53.83 Other fatigue; E11.22 Type 2 diabetes mellitus with diabetic chronic kidney disease; E11.40 Type 2 diabetes mellitus with diabetic neuropathy, unspecified; Z86.718 Personal history of other venous thrombosis and embolism; Z91.041 Radiographic dye allergy status
CPT/HCPCS: 36415; 71045; 80053; 82962; 83735; 84484; 85025; 93005; 96360; 99284; J7040

== ENCOUNTER 2018-08-25 09:34 | Inpatient (IN) | payer MEDICARE, OTHER ==
[~2018-08-25] VITALS: Ht 193 cm; Wt 152.5 kg
[2018-08-25] MEDS ORDERED: IV NORMAL SALINE 250ML 250 ML IV ONE (11:00)
[2018-08-25] MEDS ORDERED: ACETAMINOPHEN 500 MG TABLET PO ONE (11:00)
--- NOTE | 2018-08-25 11:07 | RAD ---
EXAM: CHEST 1 VIEW History: Fever COMPARISON: 07/30/2018 TECHNIQUE: Single portable radiograph of the chest FINDINGS: The cardiac silhouette is unremarkable. Mild bibasilar lung airspace opacities likely atelectasis or infiltrates. The costophrenic sulci are clear and well demarcated. IMPRESSION: Mild bibasilar lung airspace opacities likely atelectasis or infiltrates. Electronically signed by: Oskar Lo MD (08/25/2018 11:04 AM) [id number]
[2018-08-25 11:08] LABS: BASO % 0 % (0-3); EOS # 0.1 x10^3/uL (0.0-0.7); EOS % 0 % (0-3); HEMATOCRIT 35.1 % (39.0-53.0); HEMOGLOBIN 11.5 g/dL (13.0-17.5); LYMPH # 1.1 x10^3/uL (1.0-4.8); LYMPH % 4 % (24-48); MEAN CORPUSCULAR HEMOGLOBIN 32 pg (25-35); MEAN CORPUSCULAR HGB CONC 33 g/dL (31-37); MEAN CORPUSCULAR VOLUME 98 fL (79-100); MONO # 0.7 x10^3/uL (0.0-1.1); MONO % 2 % (0-9); NEUT # 30.8 x10^3uL (1.8-7.7); NEUT % 94 % (31-73); PLATELET COUNT 249 x10^3/uL (140-400); RED CELL DISTRIBUTION WIDTH 15.5 % (11.5-14.5); WHITE BLOOD COUNT 32.7 x10^3/uL (4.0-11.0)
[2018-08-25] MEDS ORDERED: ONDANSETRON PF 4 MG/2 ML VIAL. ONE (11:15)
[2018-08-25] MEDS ORDERED: ONDANSETRON PF 4 MG/2 ML VIAL. IV ONE (11:15)
[2018-08-25 11:16] LABS: PROTHROMBIN TIME PATIENT 35.3 SEC (11.7-14.0)
[2018-08-25 11:17] LABS: POTASSIUM 4.7 mmol/L (3.5-5.1)
[2018-08-25 11:23] LABS: ALBUMIN/GLOBULIN RATIO 0.5 (1.0-1.7); TOTAL BILIRUBIN 0.5 mg/dL (0.2-1.0); TOTAL PROTEIN 9.2 g/dL (6.4-8.2)
[2018-08-25 11:26] LABS: INFLUENZA A PATIENT NEGATIVE (NEGATIVE); INFLUENZA B PATIENT NEGATIVE (NEGATIVE)
[2018-08-25] MEDS ORDERED: cefTRIAXone IV Push 1 GM VIAL. IVP ONE (11:30)
[2018-08-25] MEDS ORDERED: VANCOMYCIN 1GM IVPB FOR OMNI 250 ML IV ONE (11:30)
--- NOTE | 2018-08-25 11:31 | PHYS DOC ---
Past Medical History Past Medical History: Diabetes-Type II, DVT, Renal Failure, Other Additional Past Medical Histor: neuropathy, PE Past Surgical History: Other Additional Past Surgical Histo: colon resection Alcohol Use: None Drug Use: None Adult General Chief Complaint Chief Complaint: GENERALIZED BODY ACHES HPI HPI Pt is a 63 y/o WM who has a Hx of IDDM, ESRD, and other medical problems, who presents to the ED for evaluation. He states he was in his usual state of health when he began experiencing shaking chills Review of Systems Review of Systems Constitutional: reports chills, noted to be febrile on arrival,[] Eyes: Denies change in visual acuity, redness, or eye pain [] HENT: Denies nasal congestion or sore throat [] Respiratory: Denies cough or shortness of breath [] Cardiovascular: The patient denies any shortness of breath, chest pain, palpitations, or orthopnea [] GI: Denies abdominal pain, nausea, vomiting, bloody stools or diarrhea. Patient denies abdominal pain, but tenderness noted on exam. [] : Denies dysuria or hematuria [] Musculoskeletal: Denies back pain or joint pain [] Integument: Denies rash or skin lesions [] Neurologic: Denies headache, focal weakness or sensory changes [] Endocrine: Denies polyuria or polydipsia [] All other systems were reviewed and found to be within normal limits, except as documented in this note. Current Medications Current Medications Current Medications Medications (Trade) Dose Ordered Sig/Cristian Start Time Stop Time Status Last Admin Dose Admin Acetaminophen (Tylenol) 1,000 mg 1X ONCE 08/25/18 11:00 08/25/18 11:01 DC 08/25/18 11:00 1,000 MG Ceftriaxone Sodium (Rocephin) 1 gm 1X ONCE 08/25/18 11:30 08/25/18 11:36 DC Ondansetron HCl (Zofran) 4 mg STK-MED ONCE 08/25/18 11:15 08/25/18 11:16 DC Piperacillin Sod/ Tazobactam Sod (Zosyn Per Pharmacy) 1 each PRN DAILY PRN 08/25/18 11:45 UNV Piperacillin Sod/ Tazobactam Sod 2.25 gm/Sodium Chloride 50 ml @ 100 mls/hr 1X ONCE 08/25/18 11:45 08/25/18 12:14 DC 08/25/18 11:45 100 MLS/HR Sodium Chloride 1,000 ml @ 1,000 mls/hr 1X ONCE 08/25/18 11:45 08/25/18 12:44 DC 08/25/18 11:45 1,000 MLS/HR Vancomycin HCl 250 ml @ 250 mls/hr 1X ONCE 08/25/18 11:30 08/25/18 12:29 DC Allergies Allergies Allergies Coded Allergies Type Severity Reaction Last Updated Verified I S O L A T I O N *CONTACT* Allergy Unknown 04/17/15 Yes No Known Medication Allergies Allergy Unknown 04/17/15 Yes Physical Exam Physical Exam PHYSICAL EXAM: CONSTITUTIONAL: Well developed, well nourished HEAD: normocephalic, atraumatic EENT: PERRL, EOMI. Conjunctivae normal color, sclerae non-icteric; moist mucous membranes. NECK: Supple, non-tender; no meningismus. LUNGS: Lungs CTA, breathing even and unlabored. Normal air movement. HEART: Regular rate and rhythm, no murmur CHEST: No deformity; non-tender ABDOMEN: The abdomen is soft, mild diffuse tenderness to palpation of the abdomen, without focal tenderness, rebound, or guarding, no masses or bruits. EXTREM: Normal ROM; no deformity, no calf tenderness. Normal pulses palpable in all extremities.There is hyperemia to the lower extremities bilaterally, right greater than left, with some open wounds, with mild edema, which is baseline for the patient according to the patient and his . The lower extremity appearance is consistent with venous stasis. SKIN: No rash; no diaphoresis NEURO: Alert; normal speech and cognition; CN's grossly intact; strength grossly intact without focal deficit. BACK: No CVA TTP. PSYCHIATRIC: The patient has a flat somewhat apathetic affect. Current Patient Data Vital Signs Vital Signs Date Time Temp Pulse Resp B/P (MAP) Pulse Ox O2 Delivery O2 Flow Rate FiO2 08/25/18 11:13 126 105/84 (91) 92 Room Air 08/25/18 09:56 103.2 16 103.2 Lab Values Laboratory Tests Test 08/25/18 09:50 08/25/18 10:13 White Blood Count 32.7 x10^3/uL (4.0-11.0) H Red Blood Count 3.60 x10^6/uL (4.30-5.70) L Hemoglobin 11.5 g/dL (13.0-17.5) L Hematocrit 35.1 % (39.0-53.0) L Mean Corpuscular Volume 98 fL (79-100) Mean Corpuscular Hemoglobin 32 pg (25-35) Mean Corpuscular Hemoglobin Concent 33 g/dL (31-37) Red Cell Distribution Width 15.5 % (11.5-14.5) H Platelet Count 249 x10^3/uL (140-400) Neutrophils (%) (Auto) 94 % (31-73) H Lymphocytes (%) (Auto) 4 % (24-48) L Monocytes (%) (Auto) 2 % (0-9) Eosinophils (%) (Auto) 0 % (0-3) Basophils (%) (Auto) 0 % (0-3) Neutrophils # (Auto) 30.8 x10^3uL (1.8-7.7) H Lymphocytes # (Auto) 1.1 x10^3/uL (1.0-4.8) Monocytes # (Auto) 0.7 x10^3/uL (0.0-1.1) Eosinophils # (Auto) 0.1 x10^3/uL (0.0-0.7) Basophils # (Auto) 0.0 x10^3/uL (0.0-0.2) Segmented Neutrophils % 85 % (35-66) H Band Neutrophils % 10 % (0-9) H Lymphocytes % 4 % (24-48) L Monocytes % 1 % (0-10) Platelet Estimate Adequate (ADEQUATE) Prothrombin Time 35.3 SEC (11.7-14.0) H Prothrombin Time INR 3.5 (0.8-1.1) H Sodium Level 138 mmol/L (136-145) Potassium Level 4.7 mmol/L (3.5-5.1) Chloride Level 96 mmol/L (98-107) L Carbon Dioxide Level 28 mmol/L (21-32) Anion Gap 14 (6-14) Blood Urea Nitrogen 43 mg/dL (8-26) H Creatinine 9.0 mg/dL (0.7-1.3) H Estimated GFR (Cockcroft-Gault) 6.0 BUN/Creatinine Ratio 5 (6-20) L Glucose Level 98 mg/dL (70-99) Lactic Acid Level 3.0 mmol/L (0.4-2.0) H Calcium Level 10.0 mg/dL (8.5-10.1) Total Bilirubin 0.5 mg/dL (0.2-1.0) Aspartate Amino Transferase (AST) 24 U/L (15-37) Alanine Aminotransferase (ALT) 27 U/L (16-63) Alkaline Phosphatase 71 U/L (46-116) Total Protein 9.2 g/dL (6.4-8.2) H Albumin 3.0 g/dL (3.4-5.0) L Albumin/Globulin Ratio 0.5 (1.0-1.7) L Lipase 53 U/L (73-393) L Influenza Type A Antigen Negative (NEGATIVE) Influenza Type B Antigen Negative (NEGATIVE) Laboratory Tests 08/25/18 09:50 Laboratory Tests 08/25/18 09:50 EKG EKG [Normal sinus rhythm at a rate of 115 bpm, left axis deviation, left anterior fascicular block, otherwise normal intervals. There are no acute ischemic ST/T changes.] Radiology/Procedures Radiology/Procedures PROCEDURE: PORTABLE CHEST 1V EXAM: CHEST 1 VIEW History: Fever COMPARISON: 07/30/2018 TECHNIQUE: Single portable radiograph of the chest FINDINGS: The cardiac silhouette is unremarkable. Mild bibasilar lung airspace opacities likely atelectasis or infiltrates. The costophrenic sulci are clear and well demarcated. IMPRESSION: Mild bibasilar lung airspace opacities likely atelectasis or infiltrates. [PROCEDURE: CT ABDOMEN PELVIS WO CONTRAST CT of the abdomen and pelvis without contrast. 08/25/2018 12:11 PM Indication: Abdominal pain, vomiting. NO CONTRAST PREV SENT Comparison Study: CT abdomen and pelvis the 2014.. Technique: Multidetector CT imaging of the abdomen pelvis is obtained without administration of contrast. Findings: The visualized bilateral lung bases demonstrate no acute abnormality. Multiple calcified granulomata noted within the spleen. Liver and gallbladder are unremarkable. Pancreas and adrenal glands are unremarkable. The bilateral kidneys are severely atrophic. This is worsened in the interim since prior exam There is a 3.0 cm mass arising from the inferior pole of the left kidney with attenuation characteristics greater than would be expected for simple cyst. Lesion however has decreased in size with respect to the most recent comparison CT from June 16, 2014. This may or present a hemorrhagic cyst. Neoplasm is less likely given decrease in size. Correlate with clinical history. IVC filter is noted to be in place. Diastases of the anterior rectus musculature is noted. There is also complex ventral hernia. A superior left-sided hernia defect measures approximately 5.5 cm in diameter and contains a loop of large bowel. Immediately proximal to this there is some dilatation of the large bowel. A right colectomy appears to have been performed. Inferior to this there is a second ventral hernia containing more distal loop of large bowel. Associated loop of small bowel is also seen. Definitive evidence of obstruction is not identified though a partial obstruction is difficult to exclude in the absence of oral contrast. No free fluid or free air is seen in the abdomen or pelvis. No definitive inflammatory change involving visualized bowel is identified. There is no acute osseous abnormality identified. Impression: 1. Complex ventral hernia involving both small and large bowel, with mildly dilated proximal colon. A partial large bowel obstruction cannot be excluded. 2. Severe renal atrophy, a worsened in the interim. 3 cm mass arising from the inferior left kidney has decreased in size in the interim since May 2014 when it measured approximately 5 cm. This may represent a hemorrhagic cyst. A solid neoplasm is less likely given decrease in size. Further characterization with ultrasound may be helpful. ] Course & Med Decision Making Course & Med Decision Making Pertinent Labs and Imaging studies reviewed. (See chart for details) []1:10 PM: The patient's condition remains stable. I spoke with the hospitalist, who accepted the patient to the hospital for further evaluation and treatment. Exact source of infection is not apparent at this time. Given the patient's history of dialysis, bacteremia certainly in the differential. I did attempt to reduce the patient's hernia, but could not definitively do so. I am uncertain of the significance of this cute the patient's clinical picture although he has vomited several times, he does not appear to have a bowel obstruction extending proximally. Surgery consultation will be obtained, surgeon on-call has been paged. Dragon Disclaimer Dragon Disclaimer This electronic medical record was generated, in whole or in part, using a voice recognition dictation system. Departure Departure Impression: Primary Impression: Sepsis Additional Impression: ESRD (end stage renal disease) Disposition: 09 ADMITTED INPATIENT Admitting Physician: [place], [place] Condition: GUARDED Referrals: CHUCKY MENA MD (PCP) Problem Qualifiers JASWINDER RAPP MD August 25, 2018 11:31
[2018-08-25] MEDS ORDERED: PIP/TAZO PER PHARMACY MC PRN (11:45)
[2018-08-25] MEDS ORDERED: PIPERACILLIN/TAZOBACTAM 2.25 GM in IV NORMAL SALINE 50ML 50 ML IV ONE (11:45)
[2018-08-25] MEDS ORDERED: IV NORMAL SALINE 1000ML BAG 1,000 ML IV ONE (11:45)
--- NOTE | 2018-08-25 12:57 | RAD ---
CT of the abdomen and pelvis without contrast. 08/25/2018 12:11 PM Indication: Abdominal pain, vomiting. NO CONTRAST PREV SENT Comparison Study: CT abdomen and pelvis the 2014.. Technique: Multidetector CT imaging of the abdomen pelvis is obtained without administration of contrast. Findings: The visualized bilateral lung bases demonstrate no acute abnormality. Multiple calcified granulomata noted within the spleen. Liver and gallbladder are unremarkable. Pancreas and adrenal glands are unremarkable. The bilateral kidneys are severely atrophic. This is worsened in the interim since prior exam There is a 3.0 cm mass arising from the inferior pole of the left kidney with attenuation characteristics greater than would be expected for simple cyst. Lesion however has decreased in size with respect to the most recent comparison CT from June 16, 2014. This may or present a hemorrhagic cyst. Neoplasm is less likely given decrease in size. Correlate with clinical history. IVC filter is noted to be in place. Diastases of the anterior rectus musculature is noted. There is also complex ventral hernia. A superior left-sided hernia defect measures approximately 5.5 cm in diameter and contains a loop of large bowel. Immediately proximal to this there is some dilatation of the large bowel. A right colectomy appears to have been performed. Inferior to this there is a second ventral hernia containing more distal loop of large bowel. Associated loop of small bowel is also seen. Definitive evidence of obstruction is not identified though a partial obstruction is difficult to exclude in the absence of oral contrast. No free fluid or free air is seen in the abdomen or pelvis. No definitive inflammatory change involving visualized bowel is identified. There is no acute osseous abnormality identified. Impression: 1. Complex ventral hernia involving both small and large bowel, with mildly dilated proximal colon. A partial large bowel obstruction cannot be excluded. 2. Severe renal atrophy, a worsened in the interim. 3 cm mass arising from the inferior left kidney has decreased in size in the interim since May 2014 when it measured approximately 5 cm. This may represent a hemorrhagic cyst. A solid neoplasm is less likely given decrease in size. Further characterization with ultrasound may be helpful. CT DOSING PQRS STATEMENT: One or more of the following individualized dose reduction techniques were utilized for this examination: 1. Automated exposure control 2. Adjustment of the mA and/or kV according to patient size 3. Use of iterative reconstruction technique Electronically signed by: Giovanni Quiroga MD (08/25/2018 12:54 PM) [id number]
[2018-08-25 12:58] LABS: % BANDS 10 % (0-9); % LYMPHS 4 % (24-48); % MONOS 1 % (0-10); % SEGS 85 % (35-66); PLT ESTIMATE ADEQUATE (ADEQUATE)
--- NOTE | 2018-08-25 13:06 | PDOC1 ---
History and Physical Date of Admission: Date of Admission DATE: 08/25/18 TIME: 13:00 Chief Complaint: Problems: (1) Anemia (2) Colon cancer (3) Sepsis (4) Syncope (5) Rhabdomyolysis (6) Leukocytosis (7) Fever (8) Sepsis (9) Renal failure (10) Chronic kidney disease, stage IV (severe) (11) Cellulitis and abscess of leg Chief Complain: Severe abdominal pain and chills and shaking and fever while on dialysis History of Present Illness: HPI: Mr. Denny is a pleasant middle-aged male who is on dialysis He is morbidly obese Today while he was dialyzing he got about correction through and developed abdominal pain chills and fever of 100.3 He was brought to the ER for evaluation We will some labs his white count is 32,000 his last gas level was 3 his INR is 3.5 and he is on Coumadin symptoms 11 and he is actively having projectile vomiting while here in the ER he is critically ill Past Medical/Surgical History: PMH/PSH: ESRD on dialysis previous sepsis and rhabdomyolysis diabetes PVD DVT neuropathy PE chronic anticoagulation colon resection Allergies: Allergies: Coded Allergies: I S O L A T I O N *CONTACT* (Verified Allergy, Unknown, 04/17/15) mrsa + No Known Medication Allergies (Verified Allergy, Unknown, 04/17/15) Social History: Social Hisoty: He's been for many years his is present He does not drink smoke or take drugs He is retired Current Medications: Current Medications Current Medications Sodium Chloride 250 ml @ 250 mls/hr 1X ONCE IV Last administered on 08/25/18at 11:18; Start 08/25/18 at 11:00; Stop 08/25/18 at 11:59; Status DC Acetaminophen (Tylenol) 1,000 mg 1X ONCE PO Last administered on 08/25/18at 11:00; Start 08/25/18 at 11:00; Stop 08/25/18 at 11:01; Status DC Ondansetron HCl (Zofran) 4 mg 1X ONCE IV Last administered on 08/25/18at 11:18; Start 08/25/18 at 11:15; Stop 08/25/18 at 11:16; Status DC Ondansetron HCl (Zofran) 4 mg STK-MED ONCE .ROUTE ; Start 08/25/18 at 11:15; Stop 08/25/18 at 11:16; Status DC Ceftriaxone Sodium (Rocephin) 1 gm 1X ONCE IVP ; Start 08/25/18 at 11:30; Stop 08/25/18 at 11:36; Status DC Vancomycin HCl 250 ml @ 250 mls/hr 1X ONCE IV ; Start 08/25/18 at 11:30; Stop 08/25/18 at 12:29; Status DC Piperacillin Sod/ Tazobactam Sod (Zosyn Per Pharmacy) 1 each PRN DAILY PRN MC S EE COMMENTS; Start 08/25/18 at 11:45; Status UNV Sodium Chloride 1,000 ml @ 1,000 mls/hr 1X ONCE IV Last administered on at 11:45; Start 08/25/18 at 11:45; Stop 08/25/18 at 12:44; Status DC Piperacillin Sod/ Tazobactam Sod 2.25 gm/Sodium Chloride 50 ml @ 100 mls/hr 1X ONCE IV Last administered on 08/25/18at 11:45; Start 08/25/18 at 11:45; Stop 08/25/18 at 12:14; Status DC Active Scripts Active Zofran Odt (Ondansetron) 4 Mg Tab.rapdis 4 Mg PO BID PRN Tamiflu (Oseltamivir Phosphate) 75 Mg Capsule 1 Cap PO BID Reported Renal Vitamin Tablet (Folic Acid/Vit Bcomp,C) 0.8 Mg Tablet 0.8 Mg PO DAILY Humalog (Insulin Lispro) 100 Unit/1 Ml Insuln.pen 55 Unit SQ DAILYBFRSUP Humalog (Insulin Lispro) 100 Unit/1 Ml Insuln.pen 50 Unit SQ BIDACBL Lantus Solostar (Insulin Glargine,Hum.rec.anlog) 100 Unit/1 Ml Insuln.pen 60-70 Unit SQ BID 60 units breakfast 70 units dinner Aspirin 325 Mg Tablet 1 Tab PO DAILY Metoprolol Tartrate 25 Mg Tablet 50 Mg PO BID Warfarin Sodium 5 Mg Tablet 5 Mg PO DAILY ROS: Review of Systems Review of System REVIEW OF SYSTEMS: GENERAL: He complains of fevers SKIN: No bruising, hair changes or rashes. EYES: No blurred, double or loss of vision. NOSE AND THROAT: No history of nosebleeds, hoarseness or sore throat. HEART: No history of palpitations, chest pain or shortness of breath on exertion. LUNGS: Denies cough, hemoptysis, wheezing or shortness of breath. GASTROINTESTINAL: He complains of projectile vomiting GENITOURINARY: No history of frequency, urgency, hesitancy or nocturia. NEUROLOGIC: Denies history of numbness, tingling, tremor or weakness. PSYCHIATRIC: No history of panic, anxiety or depression. ENDOCRINE: No history of heat or cold intolerance, polyuria or polydipsia. EXTREMITIES: Denies muscle weakness, joint pain, pain on walking or stiffness. Physical Exam: Vital Signs: Vital Signs Date Time Temp Pulse Resp B/P (MAP) Pulse Ox O2 Delivery O2 Flow Rate FiO2 08/25/18 11:13 126 105/84 (91) 92 Room Air 08/25/18 09:56 103.2 16 103.2 Physcial Exam: GEN.: He has projectile vomiting while being examined in the ER room 12 appears very sick as is present as are several nurses HEENT: Head is normocephalic, atraumatic NECK: Supple, no JVD LUNGS: Course and he has a cough HEART: Tachycardic ABDOMEN: Obese and very distended EXTREMITIES: Both lower extremities have chronic venous stasis NEUROLOGIC: Normal speech, normal tone. A&O x 3 PSYCHIATRIC: Very anxious SKIN: There are several lesions on the lower extremities the skin is very thin Labs: Labs: Laboratory Tests Test 08/25/18 09:50 08/25/18 10:13 White Blood Count 32.7 x10^3/uL (4.0-11.0) Red Blood Count 3.60 x10^6/uL (4.30-5.70) Hemoglobin 11.5 g/dL (13.0-17.5) Hematocrit 35.1 % (39.0-53.0) Mean Corpuscular Volume 98 fL (79-100) Mean Corpuscular Hemoglobin 32 pg (25-35) Mean Corpuscular Hemoglobin Concent 33 g/dL (31-37) Red Cell Distribution Width 15.5 % (11.5-14.5) Platelet Count 249 x10^3/uL (140-400) Neutrophils (%) (Auto) 94 % (31-73) Lymphocytes (%) (Auto) 4 % (24-48) Monocytes (%) (Auto) 2 % (0-9) Eosinophils (%) (Auto) 0 % (0-3) Basophils (%) (Auto) 0 % (0-3) Neutrophils # (Auto) 30.8 x10^3uL (1.8-7.7) Lymphocytes # (Auto) 1.1 x10^3/uL (1.0-4.8) Monocytes # (Auto) 0.7 x10^3/uL (0.0-1.1) Eosinophils # (Auto) 0.1 x10^3/uL (0.0-0.7) Basophils # (Auto) 0.0 x10^3/uL (0.0-0.2) Segmented Neutrophils % 85 % (35-66) Band Neutrophils % 10 % (0-9) Lymphocytes % 4 % (24-48) Monocytes % 1 % (0-10) Platelet Estimate Adequate (ADEQUATE) Prothrombin Time 35.3 SEC (11.7-14.0) Prothromb Time International Ratio 3.5 (0.8-1.1) Sodium Level 138 mmol/L (136-145) Potassium Level 4.7 mmol/L (3.5-5.1) Chloride Level 96 mmol/L (98-107) Carbon Dioxide Level 28 mmol/L (21-32) Anion Gap 14 (6-14) Blood Urea Nitrogen 43 mg/dL (8-26) Creatinine 9.0 mg/dL (0.7-1.3) Estimated GFR (Cockcroft-Gault) 6.0 BUN/Creatinine Ratio 5 (6-20) Glucose Level 98 mg/dL (70-99) Lactic Acid Level 3.0 mmol/L (0.4-2.0) Calcium Level 10.0 mg/dL (8.5-10.1) Total Bilirubin 0.5 mg/dL (0.2-1.0) Aspartate Amino Transf (AST/SGOT) 24 U/L (15-37) Alanine Aminotransferase (ALT/SGPT) 27 U/L (16-63) Alkaline Phosphatase 71 U/L (46-116) Total Protein 9.2 g/dL (6.4-8.2) Albumin 3.0 g/dL (3.4-5.0) Albumin/Globulin Ratio 0.5 (1.0-1.7) Lipase 53 U/L (73-393) Influenza Type A Antigen Negative (NEGATIVE) Influenza Type B Antigen Negative (NEGATIVE) Laboratory Tests Test 08/25/18 09:50 08/25/18 10:13 White Blood Count 32.7 x10^3/uL (4.0-11.0) Red Blood Count 3.60 x10^6/uL (4.30-5.70) Hemoglobin 11.5 g/dL (13.0-17.5) Hematocrit 35.1 % (39.0-53.0) Mean Corpuscular Volume 98 fL (79-100) Mean Corpuscular Hemoglobin 32 pg (25-35) Mean Corpuscular Hemoglobin Concent 33 g/dL (31-37) Red Cell Distribution Width 15.5 % (11.5-14.5) Platelet Count 249 x10^3/uL (140-400) Neutrophils (%) (Auto) 94 % (31-73) Lymphocytes (%) (Auto) 4 % (24-48) Monocytes (%) (Auto) 2 % (0-9) Eosinophils (%) (Auto) 0 % (0-3) Basophils (%) (Auto) 0 % (0-3) Neutrophils # (Auto) 30.8 x10^3uL (1.8-7.7) Lymphocytes # (Auto) 1.1 x10^3/uL (1.0-4.8) Monocytes # (Auto) 0.7 x10^3/uL (0.0-1.1) Eosinophils # (Auto) 0.1 x10^3/uL (0.0-0.7) Basophils # (Auto) 0.0 x10^3/uL (0.0-0.2) Segmented Neutrophils % 85 % (35-66) Band Neutrophils % 10 % (0-9) Lymphocytes % 4 % (24-48) Monocytes % 1 % (0-10) Platelet Estimate Adequate (ADEQUATE) Prothrombin Time 35.3 SEC (11.7-14.0) Prothromb Time International Ratio 3.5 (0.8-1.1) Sodium Level 138 mmol/L (136-145) Potassium Level 4.7 mmol/L (3.5-5.1) Chloride Level 96 mmol/L (98-107) Carbon Dioxide Level 28 mmol/L (21-32) Anion Gap 14 (6-14) Blood Urea Nitrogen 43 mg/dL (8-26) Creatinine 9.0 mg/dL (0.7-1.3) Estimated GFR (Cockcroft-Gault) 6.0 BUN/Creatinine Ratio 5 (6-20) Glucose Level 98 mg/dL (70-99) Lactic Acid Level 3.0 mmol/L (0.4-2.0) Calcium Level 10.0 mg/dL (8.5-10.1) Total Bilirubin 0.5 mg/dL (0.2-1.0) Aspartate Amino Transf (AST/SGOT) 24 U/L (15-37) Alanine Aminotransferase (ALT/SGPT) 27 U/L (16-63) Alkaline Phosphatase 71 U/L (46-116) Total Protein 9.2 g/dL (6.4-8.2) Albumin 3.0 g/dL (3.4-5.0) Albumin/Globulin Ratio 0.5 (1.0-1.7) Lipase 53 U/L (73-393) Influenza Type A Antigen Negative (NEGATIVE) Influenza Type B Antigen Negative (NEGATIVE) Images: Images Mild bibasilar lung airspace opacities likely atelectasis or infiltrates. Assessment/Plan Assessment/Plan Severe abdominal pain with projectile vomiting fever and chills anemia leukocytosis lactic acidosis probable sepsis Plan Patient is being admitted we'll consult pulmonary nephrology and infectious disease When necessary Zofran IV antibiotics ICU monitoring Frequent labs Home meds When necessary Tylenol for fevers trend his hemoglobin Patient is critically ill Total time 32 minutes DAMIAN DURAN III, DO August 25, 2018 13:06
--- NOTE | 2018-08-25 14:23 | EKG ---
[facility] [address] [place] [address] Test Date: 2018-08-25 Test Time: 10:45:16 Pat Name: ELENITA SHEPHERD Department: Room: Gender: M Radio Assembler: : 1955 Requested By: JASWINDER RAPP Order Number: [id number] Reading MD: Saroj Yates Measurements Intervals [place] Rate: 114 P: 30 NE: 162 QRS: -52 QRSD: 116 T: 81 QT: 326 QTc: 452 Interpretive Statements SINUS TACHYCARDIA ABNORMAL LEFT AXIS DEVIATION R-S TRANSITION ZONE IN V LEADS DISPLACED TO THE RIGHT LEFT ANTERIOR FASCICULAR BLOCK LVH WITH REPOLARIZATION ABNORMALITY QRS(T) CONTOUR ABNORMALITY CONSIDER ANTEROSEPTAL MYOCARDIAL DAMAGE ABNORMAL ECG Electronically Signed On 08-27-2018 9:54:39 CDT by Saroj Yates
--- NOTE | 2018-08-25 15:13 | PDOC2 ---
GI CONSULT Reason For Consult: Projectile vomiting HPI: HPI: 63 y/o male seen in the ER this afternoon. Gloria present to supplement history. Acute onset of vomiting (pickles, onions) last night - has continued here in the ER. Denies abd pain. also reports diarrhea, but he says he has chronic diarrhea (1-2 loose stools daily) that is unchanged - last stool earlier today. Only able to tolerate ~half of dialysis today due to symptoms. Temp 103.2, WBC 32, Hgb 11.5, INR 3.5, BUN 43, Cr 9, lactic 3. CT: left renal mass (decreased in size), diastases of anterior rectus musculature, complex ventral hernia - superior left-sided hernia defect contains loop of large bowel w/ dilation of large bowel proximal to this, s/p right colectomy, inferior second ventral hernia containing more distal loop of large bowel and associated loop of small bowel. Started on Zosyn per ER, also given vanco and Rocephin. Reviewed orders - plans for NG placement per surgery if vomiting continues. Nephrology and ID also asked to see. Blood cultures ordered. Denies GERD and dysphagia. No hematemesis. No chronic n/v. Denies abd distention, change in appetite, and weight loss. No constipation. No hematoche robin or melena. EGD and colonoscopy 05/2014 (Dr. Thomas): normal esophagus, normal stomach, normal duodenum, ascending colon mass. I don't see a pathology report, but discharge summary indicates adenocarcinoma. Underwent expl lap w/ extended right hemicolectomy and primary anastomosis w/ Dr. Vitale. He says he did not follow- up w/ oncology and has not had a colonoscopy since then. No GB, liver, pancreas, or PUD history. H/o PE and DVT on Warfarin w/ ICV filter. ESRD on HD. Takes ASA 81mg QD. No NSAIDs. PMH: PMH: HTN, HLD, DVT, PE, ESRD on HD, cellulitis, UTI, IDDM, peripheral neuropathy, colon cancer IVC filter, right hemicolectomy FH: Family History: No pertinent hx Social History: Smoke: No ALCOHOL: none Drugs: None ROS: GEN: +fever HEENT: Denies blurred vision, sore throat CV: Denies chest pain RESP: Denies shortness of air, cough GI: Per HPI : Denies hematuria, dysuria ENDO: Denies weight changes NEURO: Denies confusion, dizziness MSK: Denies weakness, joint pain/swelling SKIN: +chronic LE wound Vitals: Vitals: Vital Signs Date Time Temp Pulse Resp B/P (MAP) Pulse Ox O2 Delivery O2 Flow Rate FiO2 08/25/18 11:13 126 105/84 (91) 92 Room Air 08/25/18 09:56 103.2 16 103.2 Labs: Labs: Laboratory Tests Test 08/25/18 09:50 08/25/18 10:13 White Blood Count 32.7 x10^3/uL (4.0-11.0) Red Blood Count 3.60 x10^6/uL (4.30-5.70) Hemoglobin 11.5 g/dL (13.0-17.5) Hematocrit 35.1 % (39.0-53.0) Mean Corpuscular Volume 98 fL (79-100) Mean Corpuscular Hemoglobin 32 pg (25-35) Mean Corpuscular Hemoglobin Concent 33 g/dL (31-37) Red Cell Distribution Width 15.5 % (11.5-14.5) Platelet Count 249 x10^3/uL (140-400) Neutrophils (%) (Auto) 94 % (31-73) Lymphocytes (%) (Auto) 4 % (24-48) Monocytes (%) (Auto) 2 % (0-9) Eosinophils (%) (Auto) 0 % (0-3) Basophils (%) (Auto) 0 % (0-3) Neutrophils # (Auto) 30.8 x10^3uL (1.8-7.7) Lymphocytes # (Auto) 1.1 x10^3/uL (1.0-4.8) Monocytes # (Auto) 0.7 x10^3/uL (0.0-1.1) Eosinophils # (Auto) 0.1 x10^3/uL (0.0-0.7) Basophils # (Auto) 0.0 x10^3/uL (0.0-0.2) Segmented Neutrophils % 85 % (35-66) Band Neutrophils % 10 % (0-9) Lymphocytes % 4 % (24-48) Monocytes % 1 % (0-10) Platelet Estimate Adequate (ADEQUATE) Prothrombin Time 35.3 SEC (11.7-14.0) Prothromb Time International Ratio 3.5 (0.8-1.1) Sodium Level 138 mmol/L (136-145) Potassium Level 4.7 mmol/L (3.5-5.1) Chloride Level 96 mmol/L (98-107) Carbon Dioxide Level 28 mmol/L (21-32) Anion Gap 14 (6-14) Blood Urea Nitrogen 43 mg/dL (8-26) Creatinine 9.0 mg/dL (0.7-1.3) Estimated GFR (Cockcroft-Gault) 6.0 BUN/Creatinine Ratio 5 (6-20) Glucose Level 98 mg/dL (70-99) Lactic Acid Level 3.0 mmol/L (0.4-2.0) Calcium Level 10.0 mg/dL (8.5-10.1) Total Bilirubin 0.5 mg/dL (0.2-1.0) Aspartate Amino Transf (AST/SGOT) 24 U/L (15-37) Alanine Aminotransferase (ALT/SGPT) 27 U/L (16-63) Alkaline Phosphatase 71 U/L (46-116) Total Protein 9.2 g/dL (6.4-8.2) Albumin 3.0 g/dL (3.4-5.0) Albumin/Globulin Ratio 0.5 (1.0-1.7) Lipase 53 U/L (73-393) Influenza Type A Antigen Negative (NEGATIVE) Influenza Type B Antigen Negative (NEGATIVE) Allergies: Coded Allergies: I S O L A T I O N *CONTACT* (Verified Allergy, Unknown, 04/17/15) mrsa + No Known Medication Allergies (Verified Allergy, Unknown, 04/17/15) Medications: Current Medications Medications (Trade) Dose Ordered Sig/Cristian Route PRN Reason Start Time Stop Time Status Last Admin Dose Admin Sodium Chloride 250 ml @ 250 mls/hr 1X ONCE IV 08/25/18 11:00 08/25/18 11:59 DC 08/25/18 11:18 Acetaminophen (Tylenol) 1,000 mg 1X ONCE PO 08/25/18 11:00 08/25/18 11:01 DC 08/25/18 11:00 Ondansetron HCl (Zofran) 4 mg 1X ONCE IV 08/25/18 11:15 08/25/18 11:16 DC 08/25/18 11:18 Vancomycin HCl 250 ml @ 250 mls/hr 1X ONCE IV 08/25/18 11:30 08/25/18 12:29 DC 08/25/18 11:30 Sodium Chloride 1,000 ml @ 1,000 mls/hr 1X ONCE IV 08/25/18 11:45 08/25/18 12:44 DC 08/25/18 11:45 Piperacillin Sod/ Tazobactam Sod 2.25 gm/Sodium Chloride 50 ml @ 100 mls/hr 1X ONCE IV 08/25/18 11:45 08/25/18 12:14 DC 08/25/18 11:45 Imaging: Imaging: CXR IMPRESSION: Mild bibasilar lung airspace opacities likely atelectasis or infiltrates. CT A/P w/o contrast Findings: The visualized bilateral lung bases demonstrate no acute abnormality. Multiple calcified granulomata noted within the spleen. Liver and gallbladder are unremarkable. Pancreas and adrenal glands are unremarkable. The bilateral kidneys are severely atrophic. This is worsened in the interim since prior exam. There is a 3.0 cm mass arising from the inferior pole of the left kidney with attenuation characteristics greater than would be expected for simple cyst. Lesion however has decreased in size with respect to the most recent comparison CT from June 16, 2014. This may or present a hemorrhagic cyst. Neoplasm is less likely given decrease in size. Correlate with clinical history. IVC filter is noted to be in place. Diastases of the anterior rectus musculature is noted. There is also complex ventral hernia. A superior left-sided hernia defect measures approximately 5.5 cm in diameter and contains a loop of large bowel. Immediately proximal to this there is some dilatation of the large bowel. A right colectomy appears to have been performed. Inferior to this there is a second ventral hernia containing more distal loop of large bowel. Associated loop of small bowel is also seen. Definitive evidence of obstruction is not identified though a partial obstruction is difficult to exclude in the absence of oral contrast. No free fluid or free air is seen in the abdomen or pelvis. No definitive inflammatory change involving visualized bowel is identified. There is no acute osseous abnormality identified. Impression: 1. Complex ventral hernia involving both small and large bowel, with mildly dilated proximal colon. A partial large bowel obstruction cannot be excluded. 2. Severe renal atrophy, a worsened in the interim. 3 cm mass arising from the inferior left kidney has decreased in size in the interim since May 2014 when it measured approximately 5 cm. This may represent a hemorrhagic cyst. A solid neoplasm is less likely given decrease in size. Further characterization with ultrasound may be helpful. PE: GEN: uncomfortable HEENT: Atraumatic, PERRL LUNGS: room air, tachypneic, clear anteriorly HEART: tachycardic ABD: difficult exam due to body habitus, large/obese, left sided hernia, quiet, doesn't seem too tender EXTREMITY/SKIN: chronic discoloration BLE, RLE w/ superficial chronic wound NEURO/PSYCH: A & O 3 though doesn't offer much information A/P: A/P: Vomiting, diarrhea Fever, leukocytosis, lactic acidosis Abnormal CT - ventral hernias involving large and small bowel Chronic anemia H/o colon cancer and right hemicolectomy - apparently no adjuvant therapy, no colonoscopy since diagnosis (2014) H/o DVT and PE, s/p IVC filter, anti-coagulated w/ Warfarin - INR 3.5 ESRD on HD -- Surgery following, possible NG placement. Reviewed w/ Propchapis - concern for ischemia, recheck lactic (already ordered). 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 NPO. TOMASZ BARTHOLOMEW August 25, 2018 15:13
[2018-08-25 16:04] VITALS: BP 124/58
--- NOTE | 2018-08-25 17:17 | PDOC2 ---
CONSULT Date of Consult Date of Consult DATE: 08/25/18 TIME: 17:11 Reason for Consult Reason for Consult: incisional hernia with possible bowel obstruction Referring Physician Referring Physician: Cristian Identification/Chief Complaint Chief Complaint N/V Source Source: Chart review, Patient History of Present Illness Reason for Visit: 63 yo M was undergoing dialysis and began to feel poorly. Had multiple episodes of N/V. Admitted to floor and currently actually reports feeling well. No further N/V. Denies significant pain. No flatus or stool since admission. Past Medical History Cardiovascular: HTN, Hyperlipidemia Pulmonary: COPD, Other GI: Other Renal/: Chronic renal insuff Endocrine: Diabetes Past Surgical History Past Surgical History: Colectomy, Colon Resection, Other Family History Family History: Cancer, Diabetes, Hypertension Social History No ALCOHOL: none Drugs: None Lives: with Family Current Problem List Problem List Problems Medical Problems: (1) ESRD (end stage renal disease) Status: Acute Current Medications Current Medications Current Medications Sodium Chloride 250 ml @ 250 mls/hr 1X ONCE IV Last administered on 08/25/18at 11:18; Start 08/25/18 at 11:00; Stop 08/25/18 at 11:59; Status DC Acetaminophen (Tylenol) 1,000 mg 1X ONCE PO Last administered on 08/25/18at 11:00; Start 08/25/18 at 11:00; Stop 08/25/18 at 11:01; Status DC Ondansetron HCl (Zofran) 4 mg 1X ONCE IV Last administered on 08/25/18at 11:18; Start 08/25/18 at 11:15; Stop 08/25/18 at 11:16; Status DC Ondansetron HCl (Zofran) 4 mg STK-MED ONCE .ROUTE ; Start 08/25/18 at 11:15; Stop 08/25/18 at 11:16; Status DC Ceftriaxone Sodium (Rocephin) 1 gm 1X ONCE IVP ; Start 08/25/18 at 11:30; Stop 08/25/18 at 11:36; Status DC Vancomycin HCl 250 ml @ 250 mls/hr 1X ONCE IV Last administered on 08/25/18at 11:30; Start 08/25/18 at 11:30; Stop 08/25/18 at 12:29; Status DC Piperacillin Sod/ Tazobactam Sod (Zosyn Per Pharmacy) 1 each PRN DAILY PRN MC SEE COMMENTS; Start 08/25/18 at 11:45 Sodium Chloride 1,000 ml @ 1,000 mls/hr 1X ONCE IV Last administered on 08/25/18at 11:45; Start 08/25/18 at 11:45; Stop 08/25/18 at 12:44; Status DC Piperacillin Sod/ Tazobactam Sod 2.25 gm/Sodium Chloride 50 ml @ 100 mls/hr 1X ONCE IV Last administered on 08/25/18at 11:45; Start 08/25/18 at 11:45; Stop 08/25/18 at 12:14; Status DC Sodium Chloride 1,000 ml @ 100 mls/hr Q10H IV ; Start 08/25/18 at 13:15; Stop 08/26/18 at 13:14 Piperacillin Sod/ Tazobactam Sod 2.25 gm/Sodium Chloride 50 ml @ 100 mls/hr Q8HRS IV ; Start 08/25/18 at 22:00 Famotidine (Pepcid Vial) 20 mg DAILY IVP ; Start 08/25/18 at 15:30 Active Scripts Active Zofran Odt (Ondansetron) 4 Mg Tab.rapdis 4 Mg PO BID PRN Tamiflu (Oseltamivir Phosphate) 75 Mg Capsule 1 Cap PO BID Reported Renal Vitamin Tablet (Folic Acid/Vit Bcomp,C) 0.8 Mg Tablet 0.8 Mg PO DAILY Humalog (Insulin Lispro) 100 Unit/1 Ml Insuln.pen 55 Unit SQ DAILYBFRSUP Humalog (Insulin Lispro) 100 Unit/1 Ml Insuln.pen 50 Unit SQ BIDACBL Lantus Solostar (Insulin Glargine,Hum.rec.anlog) 100 Unit/1 Ml Insuln.pen 60-70 Unit SQ BID 60 units breakfast 70 units dinner Aspirin 325 Mg Tablet 1 Tab PO DAILY Metoprolol Tartrate 25 Mg Tablet 50 Mg PO BID Warfarin Sodium 5 Mg Tablet 5 Mg PO DAILY Allergies Allergies: Coded Allergies: I S O L A T I O N *CONTACT* (Verified Allergy, Unknown, 04/17/15) mrsa + No Known Medication Allergies (Verified Allergy, Unknown, 04/17/15) ROS Gastrointestinal: Yes Nausea, Yes Vomiting Physical Exam General: Alert, Oriented X3, Cooperative, No acute distress HEENT: Atraumatic Lungs: Normal air movement Abdomen: Soft, No tenderness, Other (morbidly obese, incisional hernia, but difficult to exam completely secondary to obesity) Extremities: Other (muscular atrophy with ulcerations of lower anterior legs) Neuro: Normal speech, Sensation intact Vitals VITALS Vital Signs Date Time Temp Pulse Resp B/P (MAP) Pulse Ox O2 Delivery O2 Flow Rate FiO2 08/25/18 16:04 102.2 115 20 124/58 (80) 94 Nasal Cannula 2.0 102.2 Labs Labs Laboratory Tests Test 08/25/18 09:50 08/25/18 10:13 08/25/18 14:50 White Blood Count 32.7 x10^3/uL (4.0-11.0) Red Blood Count 3.60 x10^6/uL (4.30-5.70) Hemoglobin 11.5 g/dL (13.0-17.5) Hematocrit 35.1 % (39.0-53.0) Mean Corpuscular Volume 98 fL (79-100) Mean Corpuscular Hemoglobin 32 pg (25-35) Mean Corpuscular Hemoglobin Concent 33 g/dL (31-37) Red Cell Distribution Width 15.5 % (11.5-14.5) Platelet Count 249 x10^3/uL (140-400) Neutrophils (%) (Auto) 94 % (31-73) Lymphocytes (%) (Auto) 4 % (24-48) Monocytes (%) (Auto) 2 % (0-9) Eosinophils (%) (Auto) 0 % (0-3) Basophils (%) (Auto) 0 % (0-3) Neutrophils # (Auto) 30.8 x10^3uL (1.8-7.7) Lymphocytes # (Auto) 1.1 x10^3/uL (1.0-4.8) Monocytes # (Auto) 0.7 x10^3/uL (0.0-1.1) Eosinophils # (Auto) 0.1 x10^3/uL (0.0-0.7) Basophils # (Auto) 0.0 x10^3/uL (0.0-0.2) Segmented Neutrophils % 85 % (35-66) Band Neutrophils % 10 % (0-9) Lymphocytes % 4 % (24-48) Monocytes % 1 % (0-10) Platelet Estimate Adequate (ADEQUATE) Prothrombin Time 35.3 SEC (11.7-14.0) Prothromb Time International Ratio 3.5 (0.8-1.1) Sodium Level 138 mmol/L (136-145) Potassium Level 4.7 mmol/L (3.5-5.1) Chloride Level 96 mmol/L (98-107) Carbon Dioxide Level 28 mmol/L (21-32) Anion Gap 14 (6-14) Blood Urea Nitrogen 43 mg/dL (8-26) Creatinine 9.0 mg/dL (0.7-1.3) Estimated GFR (Cockcroft-Gault) 6.0 BUN/Creatinine Ratio 5 (6-20) Glucose Level 98 mg/dL (70-99) Lactic Acid Level 3.0 mmol/L (0.4-2.0) 2.7 mmol/L (0.4-2.0) Calcium Level 10.0 mg/dL (8.5-10.1) Iron Level 17 ug/dL (65-175) Total Iron Binding Capacity 207 ug/dL (250-450) Iron Saturation 8 % (15-34) Total Bilirubin 0.5 mg/dL (0.2-1.0) Aspartate Amino Transf (AST/SGOT) 24 U/L (15-37) Alanine Aminotransferase (ALT/SGPT) 27 U/L (16-63) Alkaline Phosphatase 71 U/L (46-116) Total Protein 9.2 g/dL (6.4-8.2) Albumin 3.0 g/dL (3.4-5.0) Albumin/Globulin Ratio 0.5 (1.0-1.7) Lipase 53 U/L (73-393) Vitamin B12 Level 436 pg/mL (247-911) Influenza Type A Antigen Negative (NEGATIVE) Influenza Type B Antigen Negative (NEGATIVE) Laboratory Tests Test 08/25/18 09:50 08/25/18 10:13 08/25/18 14:50 White Blood Count 32.7 x10^3/uL (4.0-11.0) Red Blood Count 3.60 x10^6/uL (4.30-5.70) Hemoglobin 11.5 g/dL (13.0-17.5) Hematocrit 35.1 % (39.0-53.0) Mean Corpuscular Volume 98 fL (79-100) Mean Corpuscular Hemoglobin 32 pg (25-35) Mean Corpuscular Hemoglobin Concent 33 g/dL (31-37) Red Cell Distribution Width 15.5 % (11.5-14.5) Platelet Count 249 x10^3/uL (140-400) Neutrophils (%) (Auto) 94 % (31-73) Lymphocytes (%) (Auto) 4 % (24-48) Monocytes (%) (Auto) 2 % (0-9) Eosinophils (%) (Auto) 0 % (0-3) Basophils (%) (Auto) 0 % (0-3) Neutrophils # (Auto) 30.8 x10^3uL (1.8-7.7) Lymphocytes # (Auto) 1.1 x10^3/uL (1.0-4.8) Monocytes # (Auto) 0.7 x10^3/uL (0.0-1.1) Eosinophils # (Auto) 0.1 x10^3/uL (0.0-0.7) Basophils # (Auto) 0.0 x10^3/uL (0.0-0.2) Segmented Neutrophils % 85 % (35-66) Band Neutrophils % 10 % (0-9) Lymphocytes % 4 % (24-48) Monocytes % 1 % (0-10) Platelet Estimate Adequate (ADEQUATE) Prothrombin Time 35.3 SEC (11.7-14.0) Prothromb Time International Ratio 3.5 (0.8-1.1) Sodium Level 138 mmol/L (136-145) Potassium Level 4.7 mmol/L (3.5-5.1) Chloride Level 96 mmol/L (98-107) Carbon Dioxide Level 28 mmol/L (21-32) Anion Gap 14 (6-14) Blood Urea Nitrogen 43 mg/dL (8-26) Creatinine 9.0 mg/dL (0.7-1.3) Estimated GFR (Cockcroft-Gault) 6.0 BUN/Creatinine Ratio 5 (6-20) Glucose Level 98 mg/dL (70-99) Lactic Acid Level 3.0 mmol/L (0.4-2.0) 2.7 mmol/L (0.4-2.0) Calcium Level 10.0 mg/dL (8.5-10.1) Iron Level 17 ug/dL (65-175) Total Iron Binding Capacity 207 ug/dL (250-450) Iron Saturation 8 % (15-34) Total Bilirubin 0.5 mg/dL (0.2-1.0) Aspartate Amino Transf (AST/SGOT) 24 U/L (15-37) Alanine Aminotransferase (ALT/SGPT) 27 U/L (16-63) Alkaline Phosphatase 71 U/L (46-116) Total Protein 9.2 g/dL (6.4-8.2) Albumin 3.0 g/dL (3.4-5.0) Albumin/Globulin Ratio 0.5 (1.0-1.7) Lipase 53 U/L (73-393) Vitamin B12 Level 436 pg/mL (247-911) Influenza Type A Antigen Negative (NEGATIVE) Influenza Type B Antigen Negative (NEGATIVE) Images Images Ct with complicated hernia and associate bowel obstruction, but no obvious compromise Assessment/Plan Assessment/Plan Incisional hernia with bowel obstruction pt currently appears comfortable and appears to be responding to resuscitation efforts and bowel rest. Does not current have NGT, and will hold unless develops other symptoms. Lactic acid trending down. WBC elevation concerning and agree with ID consult. Pt currently represents prohibitive surgical candidate, given INR, but even with correction, remains poor candidate given severe obesity and renal failure d/w pt and pt's supportive . Thanks for consult! HIGINIO STOCK MD August 25, 2018 17:17
[2018-08-25] MEDS: FAMOTIDINE 20 MG/2 ML VIAL IVP SCH (18:41)
[2018-08-25 19:00] VITALS: BP 92/34
[2018-08-25] MEDS: IV NORMAL SALINE 1000ML BAG 1,000 ML IV SCH ×2 (20:21→23:15)
[2018-08-25] MEDS: PIPERACILLIN/TAZOBACTAM 2.25 GM in IV NORMAL SALINE 50ML 50 ML IV SCH (20:49)
[2018-08-25 23:00] VITALS: BP 83/37
[2018-08-26] VITALS (7 sets, daily range): BP systolic 101–146; BP diastolic 34–64
[2018-08-26] MEDS ORDERED: ACETAMINOPHEN 650 MG SUPP.RECT. PR PRN (00:30)
[2018-08-26] MEDS: ACETAMINOPHEN 325 MG TABLET. PO PRN ×2 (00:36→08:33)
[2018-08-26 03:19] LABS: HEMATOCRIT 29.5 % (39.0-53.0); HEMOGLOBIN 9.8 g/dL (13.0-17.5); RED BLOOD COUNT 2.99 x10^6/uL (4.30-5.70); RED CELL DISTRIBUTION WIDTH 15.7 % (11.5-14.5)
[2018-08-26] MEDS ORDERED: ACET500T68 PO (03:29)
[2018-08-26] MEDS ORDERED: ASPI-630 PO (03:29)
[2018-08-26 04:00] LABS: ALBUMIN 2.4 g/dL (3.4-5.0); ALBUMIN/GLOBULIN RATIO 0.5 (1.0-1.7); CALCIUM 9.2 mg/dL (8.5-10.1); CREATININE 11.7 mg/dL (0.7-1.3); GFR 4.4; POTASSIUM 4.5 mmol/L (3.5-5.1); TOTAL BILIRUBIN 0.5 mg/dL (0.2-1.0); TOTAL PROTEIN 7.7 g/dL (6.4-8.2)
[2018-08-26] MEDS: PIPERACILLIN/TAZOBACTAM 2.25 GM in IV NORMAL SALINE 50ML 50 ML IV SCH ×3 (05:24→20:48)
--- NOTE | 2018-08-26 08:06 | NUR ---
Chart review done. Spoke w/ RN who feels pt would benefit from PT/OT Eval and Treat. Pt w/ some weakness and is normally ambulatory according to RN. Please order if agree beneficial Addendum: 08/26/18 at 0807 by BESS BAUTISTA OT Amended: Links added.
[2018-08-26] MEDS: FAMOTIDINE 20 MG/2 ML VIAL IVP SCH (08:53)
--- NOTE | 2018-08-26 10:36 | PDOC2 ---
CONSULT Date of Consult Date of Consult DATE: 08/26/18 TIME: 10:20 Reason for Consult Reason for Consult: ESRD Source Source: Chart review History of Present Illness Reason for Visit: Pt is a 63 yo morbidly obese CM ESRD on HD at [facility] . He was getting HD yesterday and about half-way through developed abdominal pain ,chills and fever of 100.3 He was brought to the ER for evaluation Currently he reports he is feeling fine. denies any CP, SOB. Has been on Hd for 3-4 Years . He uses Amla cream prior to Dialysis every treatment In the ER -WBC 32,000 and he was having projectile vomiting in the ER as per Hospitalist's note . Denies Vomiting currently Past Medical History Cardiovascular: HTN, Hyperlipidemia Pulmonary: COPD, Other GI: Other Renal/: Chronic renal insuff Endocrine: Diabetes Past Surgical History Past Surgical History: Colectomy, Colon Resection, Other Family History Family History: Cancer, Diabetes, Hypertension Social History No ALCOHOL: none Drugs: None Lives: with Family Current Problem List Problem List Problems Medical Problems: (1) ESRD (end stage renal disease) Status: Acute Current Medications Current Medications Current Medications Sodium Chloride 250 ml @ 250 mls/hr 1X ONCE IV Last administered on 08/25/18at 11:18; Start 08/25/18 at 11:00; Stop 08/25/18 at 11:59; Status DC Acetaminophen (Tylenol) 1,000 mg 1X ONCE PO Last administered on 08/25/18at 11:00; Start 08/25/18 at 11:00; Stop 08/25/18 at 11:01; Status DC Ondansetron HCl (Zofran) 4 mg 1X ONCE IV Last administered on 08/25/18at 11:18; Start 08/25/18 at 11:15; Stop 08/25/18 at 11:16; Status DC Ondansetron HCl (Zofran) 4 mg STK-MED ONCE .ROUTE ; Start 08/25/18 at 11:15; Stop 08/25/18 at 11:16; Status DC Ceftriaxone Sodium (Rocephin) 1 gm 1X ONCE IVP ; Start 08/25/18 at 11:30; Stop 08/25/18 at 11:36; Status DC Vancomycin HCl 250 ml @ 250 mls/hr 1X ONCE IV Last administered on 08/25/18at 11:30; Start 08/25/18 at 11:30; Stop 08/25/18 at 12:29; Status DC Piperacillin Sod/ Tazobactam Sod (Zosyn Per Pharmacy) 1 each PRN DAILY PRN MC SEE COMMENTS; Start 08/25/18 at 11:45 Sodium Chloride 1,000 ml @ 1,000 mls/hr 1X ONCE IV Last administered on 08/25/18at 11:45; Start 08/25/18 at 11:45; Stop 08/25/18 at 12:44; Status DC Piperacillin Sod/ Tazobactam Sod 2.25 gm/Sodium Chloride 50 ml @ 100 mls/hr 1X ONCE IV Last administered on 08/25/18at 11:45; Start 08/25/18 at 11:45; Stop 08/25/18 at 12:14; Status DC Sodium Chloride 1,000 ml @ 100 mls/hr Q10H IV Last administered on 08/25/18at 20:21; Start 08/25/18 at 13:15; Stop 08/26/18 at 13:14 Piperacillin Sod/ Tazobactam Sod 2.25 gm/Sodium Chloride 50 ml @ 100 mls/hr Q8HRS IV Last administered on 08/26/18at 05:24; Start 08/25/18 at 22:00 Famotidine (Pepcid Vial) 20 mg DAILY IVP Last administered on 08/26/18at 08:53; Start 08/25/18 at 15:30 Acetaminophen (Tylenol) 650 mg PRN Q6HRS PRN PO FEVER Last administered on 08/26/18at 08:33; Start 08/26/18 at 00:30 Acetaminophen (Tylenol Supp) 650 mg PRN Q6HRS PRN NE FEVER; Start 08/26/18 at 00:30 Active Scripts Active Zofran Odt (Ondansetron) 4 Mg Tab.rapdis 4 Mg PO BID PRN Tamiflu (Oseltamivir Phosphate) 75 Mg Capsule 1 Cap PO BID Reported Aspirin 81 Mg Tab.chew 1 Tab PO DAILY Acetaminophen 500 Mg Tablet 1 Tab PO BID PRN Renal Vitamin Tablet (Folic Acid/Vit Bcomp,C) 0.8 Mg Tablet 0.8 Mg PO DAILY Humalog (Insulin Lispro) 100 Unit/1 Ml Insuln.pen 55 Unit SQ DAILYBFRSUP Humalog (Insulin Lispro) 100 Unit/1 Ml Insuln.pen 50 Unit SQ BIDACBL Lantus Solostar (Insulin Glargine,Hum.rec.anlog) 100 Unit/1 Ml Insuln.pen 60-70 Unit SQ BID 60 units breakfast 70 units dinner Warfarin Sodium 5 Mg Tablet 5 Mg PO DAILY Allergies Allergies: Coded Allergies: I S O L A T I O N *CONTACT* (Verified Allergy, Unknown, 04/17/15) mrsa + No Known Medication Allergies (Verified Allergy, Unknown, 04/17/15) ROS Review of System As per HPI Physical Exam Physical Exam GEN: NAD, Morbidly obese , sitting up in chair HEEN: Om moist NECK: Supple CVS: S1S2, RRR RESP: CTA, No Acc. Muscle Use GI: BS + ve, Obese : No CVA tenderness, No Suprapubic Tenderness, No [place] EXT: Edema + NEURO- Grosssly Normal SKIN No rash Vital Signs Vital Signs Date Time Temp Pulse Resp B/P (MAP) Pulse Ox O2 Delivery O2 Flow Rate FiO2 08/26/18 07:00 99.6 94 20 117/34 (61) 97 Nasal Cannula 2.0 99.6 Assessment & Plan ESRD - [facility]( Dr. [facility]) Last HD yesterday- didnt complete treatment Normal duration for 4 hrs Currently no indication for HD Will schedule for Tomorrow Hypotensive- at presentation, Recd IVF Stable pulm status currently , cautious with IVF GI Symptoms, Fever, Leukocytosis - Abnormal CT - ventral hernias involving large and small bowel GI, GS, ID following Chronic anemia- Initial Hgb may be high due to hemoconc GI following H/o colon cancer and right hemicolectomy - apparently no adjuvant therapy, no colonoscopy since diagnosis (2014) H/o DVT and PE, s/p IVC filter, anti-coagulated w/ Warfarin Discussed with Patient, and RN Labs Labs Laboratory Tests Test 08/25/18 09:50 08/25/18 10:13 08/25/18 14:50 08/25/18 21:07 White Blood Count 32.7 x10^3/uL (4.0-11.0) Red Blood Count 3.60 x10^6/uL (4.30-5.70) Hemoglobin 11.5 g/dL (13.0-17.5) Hematocrit 35.1 % (39.0-53.0) Mean Corpuscular Volume 98 fL (79-100) Mean Corpuscular Hemoglobin 32 pg (25-35) Mean Corpuscular Hemoglobin Concent 33 g/dL (31-37) Red Cell Distribution Width 15.5 % (11.5-14.5) Platelet Count 249 x10^3/uL (140-400) Neutrophils (%) (Auto) 94 % (31-73) Lymphocytes (%) (Auto) 4 % (24-48) Monocytes (%) (Auto) 2 % (0-9) Eosinophils (%) (Auto) 0 % (0-3) Basophils (%) (Auto) 0 % (0-3) Neutrophils # (Auto) 30.8 x10^3uL (1.8-7.7) Lymphocytes # (Auto) 1.1 x10^3/uL (1.0-4.8) Monocytes # (Auto) 0.7 x10^3/uL (0.0-1.1) Eosinophils # (Auto) 0.1 x10^3/uL (0.0-0.7) Basophils # (Auto) 0.0 x10^3/uL (0.0-0.2) Segmented Neutrophils % 85 % (35-66) Band Neutrophils % 10 % (0-9) Lymphocytes % 4 % (24-48) Monocytes % 1 % (0-10) Platelet Estimate Adequate (ADEQUATE) Prothrombin Time 35.3 SEC (11.7-14.0) Prothromb Time International Ratio 3.5 (0.8-1.1) Sodium Level 138 mmol/L (136-145) Potassium Level 4.7 mmol/L (3.5-5.1) Chloride Level 96 mmol/L (98-107) Carbon Dioxide Level 28 mmol/L (21-32) Anion Gap 14 (6-14) Blood Urea Nitrogen 43 mg/dL (8-26) Creatinine 9.0 mg/dL (0.7-1.3) Estimated GFR (Cockcroft-Gault) 6.0 BUN/Creatinine Ratio 5 (6-20) Glucose Level 98 mg/dL (70-99) Lactic Acid Level 3.0 mmol/L (0.4-2.0) 2.7 mmol/L (0.4-2.0) Calcium Level 10.0 mg/dL (8.5-10.1) Iron Level 17 ug/dL (65-175) Total Iron Binding Capacity 207 ug/dL (250-450) Iron Saturation 8 % (15-34) Total Bilirubin 0.5 mg/dL (0.2-1.0) Aspartate Amino Transf (AST/SGOT) 24 U/L (15-37) Alanine Aminotransferase (ALT/SGPT) 27 U/L (16-63) Alkaline Phosphatase 71 U/L (46-116) Total Protein 9.2 g/dL (6.4-8.2) Albumin 3.0 g/dL (3.4-5.0) Albumin/Globulin Ratio 0.5 (1.0-1.7) Lipase 53 U/L (73-393) Vitamin B12 Level 436 pg/mL (247-911) Influenza Type A Antigen Negative (NEGATIVE) Influenza Type B Antigen Negative (NEGATIVE) Glucose (Fingerstick) 120 mg/dL (70-99) Test 08/26/18 03:05 08/26/18 07:39 White Blood Count 19.0 x10^3/uL (4.0-11.0) Red Blood Count 2.99 x10^6/uL (4.30-5.70) Hemoglobin 9.8 g/dL (13.0-17.5) Hematocrit 29.5 % (39.0-53.0) Mean Corpuscular Volume 99 fL (79-100) Mean Corpuscular Hemoglobin 33 pg (25-35) Mean Corpuscular Hemoglobin Concent 33 g/dL (31-37) Red Cell Distribution Width 15.7 % (11.5-14.5) Platelet Count 192 x10^3/uL (140-400) Sodium Level 134 mmol/L (136-145) Potassium Level 4.5 mmol/L (3.5-5.1) Chloride Level 99 mmol/L (98-107) Carbon Dioxide Level 24 mmol/L (21-32) Anion Gap 11 (6-14) Blood Urea Nitrogen 55 mg/dL (8-26) Creatinine 11.7 mg/dL (0.7-1.3) Estimated GFR (Cockcroft-Gault) 4.4 BUN/Creatinine Ratio 5 (6-20) Glucose Level 94 mg/dL (70-99) Lactic Acid Level 0.9 mmol/L (0.4-2.0) Calcium Level 9.2 mg/dL (8.5-10.1) Total Bilirubin 0.5 mg/dL (0.2-1.0) Aspartate Amino Transf (AST/SGOT) 71 U/L (15-37) Alanine Aminotransferase (ALT/SGPT) 25 U/L (16-63) Alkaline Phosphatase 50 U/L (46-116) Total Protein 7.7 g/dL (6.4-8.2) Albumin 2.4 g/dL (3.4-5.0) Albumin/Globulin Ratio 0.5 (1.0-1.7) Glucose (Fingerstick) 73 mg/dL (70-99) Laboratory Tests Test 08/25/18 14:50 08/25/18 21:07 08/26/18 03:05 08/26/18 07:39 Lactic Acid Level 2.7 mmol/L (0.4-2.0) 0.9 mmol/L (0.4-2.0) Glucose (Fingerstick) 120 mg/dL (70-99) 73 mg/dL (70-99) White Blood Count 19.0 x10^3/uL (4.0-11.0) Red Blood Count 2.99 x10^6/uL (4.30-5.70) Hemoglobin 9.8 g/dL (13.0-17.5) Hematocrit 29.5 % (39.0-53.0) Mean Corpuscular Volume 99 fL (79-100) Mean Corpuscular Hemoglobin 33 pg (25-35) Mean Corpuscular Hemoglobin Concent 33 g/dL (31-37) Red Cell Distribution Width 15.7 % (11.5-14.5) Platelet Count 192 x10^3/uL (140-400) Sodium Level 134 mmol/L (136-145) Potassium Level 4.5 mmol/L (3.5-5.1) Chloride Level 99 mmol/L (98-107) Carbon Dioxide Level 24 mmol/L (21-32) Anion Gap 11 (6-14) Blood Urea Nitrogen 55 mg/dL (8-26) Creatinine 11.7 mg/dL (0.7-1.3) Estimated GFR (Cockcroft-Gault) 4.4 BUN/Creatinine Ratio 5 (6-20) Glucose Level 94 mg/dL (70-99) Calcium Level 9.2 mg/dL (8.5-10.1) Total Bilirubin 0.5 mg/dL (0.2-1.0) Aspartate Amino Transf (AST/SGOT) 71 U/L (15-37) Alanine Aminotransferase (ALT/SGPT) 25 U/L (16-63) Alkaline Phosphatase 50 U/L (46-116) Total Protein 7.7 g/dL (6.4-8.2) Albumin 2.4 g/dL (3.4-5.0) Albumin/Globulin Ratio 0.5 (1.0-1.7) Review All relevant outside records, renal labs, imaging studies, telemetry/EKG's were reviewed. Images Images CxR-- IMPRESSION: Mild bibasilar lung airspace opacities likely atelectasis or infiltrates. CT SCAN ABDOMEN-- 1. Complex ventral hernia involving both small and large bowel, with mildly dilated proximal colon. A partial large bowel obstruction cannot be excluded. 2. Severe renal atrophy, a worsened in the interim. 3 cm mass arising from the inferior left kidney has decreased in size in the interim since May 2014 when it measured approximately 5 cm. This may represent a hemorrhagic cyst. A solid neoplasm is less likely given decrease in size. Further characterization with ultrasound may be helpful. ANABEL GARSIA MD August 26, 2018 10:35
--- NOTE | 2018-08-26 11:00 | PDOC ---
Infectious Disease Note Vital Sign Vital Signs Vital Signs Date Time Temp Pulse Resp B/P (MAP) Pulse Ox O2 Delivery O2 Flow Rate FiO2 08/26/18 07:00 99.6 94 20 117/34 (61) 97 Nasal Cannula 2.0 99.6 Labs Lab Laboratory Tests Test 08/25/18 14:50 08/25/18 21:07 08/26/18 03:05 08/26/18 07:39 Lactic Acid Level 2.7 mmol/L (0.4-2.0) 0.9 mmol/L (0.4-2.0) Glucose (Fingerstick) 120 mg/dL (70-99) 73 mg/dL (70-99) White Blood Count 19.0 x10^3/uL (4.0-11.0) Red Blood Count 2.99 x10^6/uL (4.30-5.70) Hemoglobin 9.8 g/dL (13.0-17.5) Hematocrit 29.5 % (39.0-53.0) Mean Corpuscular Volume 99 fL (79-100) Mean Corpuscular Hemoglobin 33 pg (25-35) Mean Corpuscular Hemoglobin Concent 33 g/dL (31-37) Red Cell Distribution Width 15.7 % (11.5-14.5) Platelet Count 192 x10^3/uL (140-400) Sodium Level 134 mmol/L (136-145) Potassium Level 4.5 mmol/L (3.5-5.1) Chloride Level 99 mmol/L (98-107) Carbon Dioxide Level 24 mmol/L (21-32) Anion Gap 11 (6-14) Blood Urea Nitrogen 55 mg/dL (8-26) Creatinine 11.7 mg/dL (0.7-1.3) Estimated GFR (Cockcroft-Gault) 4.4 BUN/Creatinine Ratio 5 (6-20) Glucose Level 94 mg/dL (70-99) Calcium Level 9.2 mg/dL (8.5-10.1) Total Bilirubin 0.5 mg/dL (0.2-1.0) Aspartate Amino Transf (AST/SGOT) 71 U/L (15-37) Alanine Aminotransferase (ALT/SGPT) 25 U/L (16-63) Alkaline Phosphatase 50 U/L (46-116) Total Protein 7.7 g/dL (6.4-8.2) Albumin 2.4 g/dL (3.4-5.0) Albumin/Globulin Ratio 0.5 (1.0-1.7) Micro Microbiology 08/25/18 Blood Culture - Final, Complete Objective Assessment Fever and chills Leukocytosis BC + with Strep Lower ext infected ulcers Obesity Yeast infection in skin folds ESRD on HD Chronic diarrhea Plan Plan of Care vanc and zosyn wound care diflucan supportive care d/w wt loss AMY PCIKETT MD August 26, 2018 11:00
[2018-08-26] MEDS: VANCOMYCIN PER PHARMACY MC PRN ×2 (12:11→13:55)
--- NOTE | 2018-08-26 12:20 | PDOC ---
Subjective: Subjective: Feeling much better - no n/v or abd pain, tolerating clears, stooling. Objective: Vital Signs: Vital Signs Date Time Temp Pulse Resp B/P (MAP) Pulse Ox O2 Delivery O2 Flow Rate FiO2 08/26/18 11:00 98.1 83 18 102/54 (70) 95 Nasal Cannula 2.0 98.1 Labs: Laboratory Tests Test 08/25/18 14:50 08/25/18 21:07 08/26/18 03:05 08/26/18 07:39 Lactic Acid Level 2.7 mmol/L 0.9 mmol/L Glucose (Fingerstick) 120 mg/dL 73 mg/dL White Blood Count 19.0 x10^3/uL Red Blood Count 2.99 x10^6/uL Hemoglobin 9.8 g/dL Hematocrit 29.5 % Mean Corpuscular Volume 99 fL Mean Corpuscular Hemoglobin 33 pg Mean Corpuscular Hemoglobin Concent 33 g/dL Red Cell Distribution Width 15.7 % Platelet Count 192 x10^3/uL Sodium Level 134 mmol/L Potassium Level 4.5 mmol/L Chloride Level 99 mmol/L Carbon Dioxide Level 24 mmol/L Anion Gap 11 Blood Urea Nitrogen 55 mg/dL Creatinine 11.7 mg/dL Estimated GFR (Cockcroft-Gault) 4.4 BUN/Creatinine Ratio 5 Glucose Level 94 mg/dL Calcium Level 9.2 mg/dL Total Bilirubin 0.5 mg/dL Aspartate Amino Transf (AST/SGOT) 71 U/L Alanine Aminotransferase (ALT/SGPT) 25 U/L Alkaline Phosphatase 50 U/L Total Protein 7.7 g/dL Albumin 2.4 g/dL Albumin/Globulin Ratio 0.5 Test 08/26/18 11:15 Glucose (Fingerstick) 184 mg/dL BLOOD CULTURE Final GRAM POSITIVE COCCI IN CHAINS IN 1 OF 4 BOTTLES (2 SETS COLLECTED). PE: GEN: NAD - up in chair, does not look up from game on his phone LUNGS: room air HEART: RRR ABD: large/obese, non-tender NEURO/PSYCH: A & O 3 A/P: Vomiting, diarrhea - resolved Fever, leukocytosis, gram + cocci bacteremia Abnormal CT - ventral hernias involving large and small bowel DOUGLAS, ESRD, h/o blood clots H/o colon cancer, right hemicolectomy -- Diet per surgery. 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 Overdue for outpt screening colonoscopy w/ h/o colon cancer. TOMASZ BARTHOLOMEW August 26, 2018 12:20
[2018-08-26] MEDS: MULTIVITAMIN with MINERAL TABLET. PO SCH (12:30)
[2018-08-26] MEDS: ASCORBIC ACID 500 MG TABLET PO SCH (12:30)
[2018-08-26] MEDS: FLUCONAZOLE 100 MG TABLET. PO SCH (12:30)
--- NOTE | 2018-08-26 13:21 | PDOC ---
ILYA ULLOA FACILITY SERVICE ASSOCIATE 08/26/18 1321: SURGICAL PROGRESS NOTE Subjective reports no pain tolerating diet having stools Vital Signs Vital Signs Date Time Temp Pulse Resp B/P (MAP) Pulse Ox O2 Delivery O2 Flow Rate FiO2 08/26/18 11:00 98.1 83 18 102/54 (70) 95 Nasal Cannula 2.0 98.1 I&O Intake and Output 08/26/18 06:59 Intake Total 0 ml Balance 0 ml Intake Oral 0 ml # Bowel Movements 4 General: Alert, Oriented X3, Cooperative, No acute distress Abdomen: Soft, No tenderness Labs Laboratory Tests Test 08/25/18 09:50 08/25/18 10:13 08/25/18 14:50 08/25/18 21:07 White Blood Count 32.7 x10^3/uL (4.0-11.0) Red Blood Count 3.60 x10^6/uL (4.30-5.70) Hemoglobin 11.5 g/dL (13.0-17.5) Hematocrit 35.1 % (39.0-53.0) Mean Corpuscular Volume 98 fL (79-100) Mean Corpuscular Hemoglobin 32 pg (25-35) Mean Corpuscular Hemoglobin Concent 33 g/dL (31-37) Red Cell Distribution Width 15.5 % (11.5-14.5) Platelet Count 249 x10^3/uL (140-400) Neutrophils (%) (Auto) 94 % (31-73) Lymphocytes (%) (Auto) 4 % (24-48) Monocytes (%) (Auto) 2 % (0-9) Eosinophils (%) (Auto) 0 % (0-3) Basophils (%) (Auto) 0 % (0-3) Neutrophils # (Auto) 30.8 x10^3uL (1.8-7.7) Lymphocytes # (Auto) 1.1 x10^3/uL (1.0-4.8) Monocytes # (Auto) 0.7 x10^3/uL (0.0-1.1) Eosinophils # (Auto) 0.1 x10^3/uL (0.0-0.7) Basophils # (Auto) 0.0 x10^3/uL (0.0-0.2) Segmented Neutrophils % 85 % (35-66) Band Neutrophils % 10 % (0-9) Lymphocytes % 4 % (24-48) Monocytes % 1 % (0-10) Platelet Estimate Adequate (ADEQUATE) Prothrombin Time 35.3 SEC (11.7-14.0) Prothromb Time International Ratio 3.5 (0.8-1.1) Sodium Level 138 mmol/L (136-145) Potassium Level 4.7 mmol/L (3.5-5.1) Chloride Level 96 mmol/L (98-107) Carbon Dioxide Level 28 mmol/L (21-32) Anion Gap 14 (6-14) Blood Urea Nitrogen 43 mg/dL (8-26) Creatinine 9.0 mg/dL (0.7-1.3) Estimated GFR (Cockcroft-Gault) 6.0 BUN/Creatinine Ratio 5 (6-20) Glucose Level 98 mg/dL (70-99) Lactic Acid Level 3.0 mmol/L (0.4-2.0) 2.7 mmol/L (0.4-2.0) Calcium Level 10.0 mg/dL (8.5-10.1) Iron Level 17 ug/dL (65-175) Total Iron Binding Capacity 207 ug/dL (250-450) Iron Saturation 8 % (15-34) Total Bilirubin 0.5 mg/dL (0.2-1.0) Aspartate Amino Transf (AST/SGOT) 24 U/L (15-37) Alanine Aminotransferase (ALT/SGPT) 27 U/L (16-63) Alkaline Phosphatase 71 U/L (46-116) Total Protein 9.2 g/dL (6.4-8.2) Albumin 3.0 g/dL (3.4-5.0) Albumin/Globulin Ratio 0.5 (1.0-1.7) Lipase 53 U/L (73-393) Vitamin B12 Level 436 pg/mL (247-911) Influenza Type A Antigen Negative (NEGATIVE) Influenza Type B Antigen Negative (NEGATIVE) Glucose (Fingerstick) 120 mg/dL (70-99) Test 08/26/18 03:05 08/26/18 07:39 08/26/18 11:15 White Blood Count 19.0 x10^3/uL (4.0-11.0) Red Blood Count 2.99 x10^6/uL (4.30-5.70) Hemoglobin 9.8 g/dL (13.0-17.5) Hematocrit 29.5 % (39.0-53.0) Mean Corpuscular Volume 99 fL (79-100) Mean Corpuscular Hemoglobin 33 pg (25-35) Mean Corpuscular Hemoglobin Concent 33 g/dL (31-37) Red Cell Distribution Width 15.7 % (11.5-14.5) Platelet Count 192 x10^3/uL (140-400) Sodium Level 134 mmol/L (136-145) Potassium Level 4.5 mmol/L (3.5-5.1) Chloride Level 99 mmol/L (98-107) Carbon Dioxide Level 24 mmol/L (21-32) Anion Gap 11 (6-14) Blood Urea Nitrogen 55 mg/dL (8-26) Creatinine 11.7 mg/dL (0.7-1.3) Estimated GFR (Cockcroft-Gault) 4.4 BUN/Creatinine Ratio 5 (6-20) Glucose Level 94 mg/dL (70-99) Lactic Acid Level 0.9 mmol/L (0.4-2.0) Calcium Level 9.2 mg/dL (8.5-10.1) Total Bilirubin 0.5 mg/dL (0.2-1.0) Aspartate Amino Transf (AST/SGOT) 71 U/L (15-37) Alanine Aminotransferase (ALT/SGPT) 25 U/L (16-63) Alkaline Phosphatase 50 U/L (46-116) Total Protein 7.7 g/dL (6.4-8.2) Albumin 2.4 g/dL (3.4-5.0) Albumin/Globulin Ratio 0.5 (1.0-1.7) Glucose (Fingerstick) 73 mg/dL (70-99) 184 mg/dL (70-99) Laboratory Tests Test 08/25/18 14:50 08/25/18 21:07 08/26/18 03:05 08/26/18 07:39 Lactic Acid Level 2.7 mmol/L (0.4-2.0) 0.9 mmol/L (0.4-2.0) Glucose (Fingerstick) 120 mg/dL (70-99) 73 mg/dL (70-99) White Blood Count 19.0 x10^3/uL (4.0-11.0) Red Blood Count 2.99 x10^6/uL (4.30-5.70) Hemoglobin 9.8 g/dL (13.0-17.5) Hematocrit 29.5 % (39.0-53.0) Mean Corpuscular Volume 99 fL (79-100) Mean Corpuscular Hemoglobin 33 pg (25-35) Mean Corpuscular Hemoglobin Concent 33 g/dL (31-37) Red Cell Distribution Width 15.7 % (11.5-14.5) Platelet Count 192 x10^3/uL (140-400) Sodium Level 134 mmol/L (136-145) Potassium Level 4.5 mmol/L (3.5-5.1) Chloride Level 99 mmol/L (98-107) Carbon Dioxide Level 24 mmol/L (21-32) Anion Gap 11 (6-14) Blood Urea Nitrogen 55 mg/dL (8-26) Creatinine 11.7 mg/dL (0.7-1.3) Estimated GFR (Cockcroft-Gault) 4.4 BUN/Creatinine Ratio 5 (6-20) Glucose Level 94 mg/dL (70-99) Calcium Level 9.2 mg/dL (8.5-10.1) Total Bilirubin 0.5 mg/dL (0.2-1.0) Aspartate Amino Transf (AST/SGOT) 71 U/L (15-37) Alanine Aminotransferase (ALT/SGPT) 25 U/L (16-63) Alkaline Phosphatase 50 U/L (46-116) Total Protein 7.7 g/dL (6.4-8.2) Albumin 2.4 g/dL (3.4-5.0) Albumin/Globulin Ratio 0.5 (1.0-1.7) Test 08/26/18 11:15 Glucose (Fingerstick) 184 mg/dL (70-99) Problem List Problems Medical Problems: (1) ESRD (end stage renal disease) Status: Acute Assessment/Plan hernia with obstruction appears improved HIGINIO STOCK MD 08/26/18 1523: SURGICAL PROGRESS NOTE Assessment/Plan Pt seen and examined. Agree with Anoop Ramirez's note Pt reports feeling better, no further n/v, passing flatus denies pain, hungry abd soft, ND, TTP, obese will try full liquids. ILYA ULLOA APRN August 26, 2018 13:21 HIGINIO STOCK MD August 26, 2018 15:23
--- NOTE | 2018-08-26 13:42 | PDOC ---
PROGRESS NOTES Chief Complaint Chief Complaint Fever and chills Leukocytosis BC + with Strep Lower ext infected ulcers Obesity Yeast infection in skin folds ESRD on HD Chronic diarrhea Vitals Vitals Vital Signs Date Time Temp Pulse Resp B/P (MAP) Pulse Ox O2 Delivery O2 Flow Rate FiO2 08/26/18 11:00 98.1 83 18 102/54 (70) 95 Nasal Cannula 2.0 98.1 Physical Exam General: Alert, Oriented X3, Cooperative, No acute distress Lungs: Clear, Crackles Abdomen: Soft, No tenderness Extremities: Other (muscular atrophy with ulcerations of lower anterior legs) Labs LABS Laboratory Tests Test 08/25/18 14:50 08/25/18 21:07 08/26/18 03:05 08/26/18 07:39 Lactic Acid Level 2.7 mmol/L (0.4-2.0) 0.9 mmol/L (0.4-2.0) Glucose (Fingerstick) 120 mg/dL (70-99) 73 mg/dL (70-99) White Blood Count 19.0 x10^3/uL (4.0-11.0) Red Blood Count 2.99 x10^6/uL (4.30-5.70) Hemoglobin 9.8 g/dL (13.0-17.5) Hematocrit 29.5 % (39.0-53.0) Mean Corpuscular Volume 99 fL (79-100) Mean Corpuscular Hemoglobin 33 pg (25-35) Mean Corpuscular Hemoglobin Concent 33 g/dL (31-37) Red Cell Distribution Width 15.7 % (11.5-14.5) Platelet Count 192 x10^3/uL (140-400) Sodium Level 134 mmol/L (136-145) Potassium Level 4.5 mmol/L (3.5-5.1) Chloride Level 99 mmol/L (98-107) Carbon Dioxide Level 24 mmol/L (21-32) Anion Gap 11 (6-14) Blood Urea Nitrogen 55 mg/dL (8-26) Creatinine 11.7 mg/dL (0.7-1.3) Estimated GFR (Cockcroft-Gault) 4.4 BUN/Creatinine Ratio 5 (6-20) Glucose Level 94 mg/dL (70-99) Calcium Level 9.2 mg/dL (8.5-10.1) Total Bilirubin 0.5 mg/dL (0.2-1.0) Aspartate Amino Transf (AST/SGOT) 71 U/L (15-37) Alanine Aminotransferase (ALT/SGPT) 25 U/L (16-63) Alkaline Phosphatase 50 U/L (46-116) Total Protein 7.7 g/dL (6.4-8.2) Albumin 2.4 g/dL (3.4-5.0) Albumin/Globulin Ratio 0.5 (1.0-1.7) Test 08/26/18 11:15 Glucose (Fingerstick) 184 mg/dL (70-99) Assessment and Plan Assessmemt and Plan Problems Medical Problems: (1) ESRD (end stage renal disease) Status: Acute Comment Review of Relevant I have reviewed the following items joyce (where applicable) has been applied. Labs Laboratory Tests Test 08/25/18 09:50 08/25/18 10:13 08/25/18 14:50 08/25/18 21:07 White Blood Count 32.7 x10^3/uL (4.0-11.0) Red Blood Count 3.60 x10^6/uL (4.30-5.70) Hemoglobin 11.5 g/dL (13.0-17.5) Hematocrit 35.1 % (39.0-53.0) Mean Corpuscular Volume 98 fL (79-100) Mean Corpuscular Hemoglobin 32 pg (25-35) Mean Corpuscular Hemoglobin Concent 33 g/dL (31-37) Red Cell Distribution Width 15.5 % (11.5-14.5) Platelet Count 249 x10^3/uL (140-400) Neutrophils (%) (Auto) 94 % (31-73) Lymphocytes (%) (Auto) 4 % (24-48) Monocytes (%) (Auto) 2 % (0-9) Eosinophils (%) (Auto) 0 % (0-3) Basophils (%) (Auto) 0 % (0-3) Neutrophils # (Auto) 30.8 x10^3uL (1.8-7.7) Lymphocytes # (Auto) 1.1 x10^3/uL (1.0-4.8) Monocytes # (Auto) 0.7 x10^3/uL (0.0-1.1) Eosinophils # (Auto) 0.1 x10^3/uL (0.0-0.7) Basophils # (Auto) 0.0 x10^3/uL (0.0-0.2) Segmented Neutrophils % 85 % (35-66) Band Neutrophils % 10 % (0-9) Lymphocytes % 4 % (24-48) Monocytes % 1 % (0-10) Platelet Estimate Adequate (ADEQUATE) Prothrombin Time 35.3 SEC (11.7-14.0) Prothromb Time International Ratio 3.5 (0.8-1.1) Sodium Level 138 mmol/L (136-145) Potassium Level 4.7 mmol/L (3.5-5.1) Chloride Level 96 mmol/L (98-107) Carbon Dioxide Level 28 mmol/L (21-32) Anion Gap 14 (6-14) Blood Urea Nitrogen 43 mg/dL (8-26) Creatinine 9.0 mg/dL (0.7-1.3) Estimated GFR (Cockcroft-Gault) 6.0 BUN/Creatinine Ratio 5 (6-20) Glucose Level 98 mg/dL (70-99) Lactic Acid Level 3.0 mmol/L (0.4-2.0) 2.7 mmol/L (0.4-2.0) Calcium Level 10.0 mg/dL (8.5-10.1) Iron Level 17 ug/dL (65-175) Total Iron Binding Capacity 207 ug/dL (250-450) Iron Saturation 8 % (15-34) Total Bilirubin 0.5 mg/dL (0.2-1.0) Aspartate Amino Transf (AST/SGOT) 24 U/L (15-37) Alanine Aminotransferase (ALT/SGPT) 27 U/L (16-63) Alkaline Phosphatase 71 U/L (46-116) Total Protein 9.2 g/dL (6.4-8.2) Albumin 3.0 g/dL (3.4-5.0) Albumin/Globulin Ratio 0.5 (1.0-1.7) Lipase 53 U/L (73-393) Vitamin B12 Level 436 pg/mL (247-911) Influenza Type A Antigen Negative (NEGATIVE) Influenza Type B Antigen Negative (NEGATIVE) Glucose (Fingerstick) 120 mg/dL (70-99) Test 08/26/18 03:05 5/2/19 07:39 08/26/18 11:15 White Blood Count 19.0 x10^3/uL (4.0-11.0) Red Blood Count 2.99 x10^6/uL (4.30-5.70) Hemoglobin 9.8 g/dL (13.0-17.5) Hematocrit 29.5 % (39.0-53.0) Mean Corpuscular Volume 99 fL (79-100) Mean Corpuscular Hemoglobin 33 pg (25-35) Mean Corpuscular Hemoglobin Concent 33 g/dL (31-37) Red Cell Distribution Width 15.7 % (11.5-14.5) Platelet Count 192 x10^3/uL (140-400) Sodium Level 134 mmol/L (136-145) Potassium Level 4.5 mmol/L (3.5-5.1) Chloride Level 99 mmol/L (98-107) Carbon Dioxide Level 24 mmol/L (21-32) Anion Gap 11 (6-14) Blood Urea Nitrogen 55 mg/dL (8-26) Creatinine 11.7 mg/dL (0.7-1.3) Estimated GFR (Cockcroft-Gault) 4.4 BUN/Creatinine Ratio 5 (6-20) Glucose Level 94 mg/dL (70-99) Lactic Acid Level 0.9 mmol/L (0.4-2.0) Calcium Level 9.2 mg/dL (8.5-10.1) Total Bilirubin 0.5 mg/dL (0.2-1.0) Aspartate Amino Transf (AST/SGOT) 71 U/L (15-37) Alanine Aminotransferase (ALT/SGPT) 25 U/L (16-63) Alkaline Phosphatase 50 U/L (46-116) Total Protein 7.7 g/dL (6.4-8.2) Albumin 2.4 g/dL (3.4-5.0) Albumin/Globulin Ratio 0.5 (1.0-1.7) Glucose (Fingerstick) 73 mg/dL (70-99) 184 mg/dL (70-99) Laboratory Tests Test 08/25/18 14:50 08/25/18 21:07 08/26/18 03:05 08/26/18 07:39 Lactic Acid Level 2.7 mmol/L (0.4-2.0) 0.9 mmol/L (0.4-2.0) Glucose (Fingerstick) 120 mg/dL (70-99) 73 mg/dL (70-99) White Blood Count 19.0 x10^3/uL (4.0-11.0) Red Blood Count 2.99 x10^6/uL (4.30-5.70) Hemoglobin 9.8 g/dL (13.0-17.5) Hematocrit 29.5 % (39.0-53.0) Mean Corpuscular Volume 99 fL (79-100) Mean Corpuscular Hemoglobin 33 pg (25-35) Mean Corpuscular Hemoglobin Concent 33 g/dL (31-37) Red Cell Distribution Width 15.7 % (11.5-14.5) Platelet Count 192 x10^3/uL (140-400) Sodium Level 134 mmol/L (136-145) Potassium Level 4.5 mmol/L (3.5-5.1) Chloride Level 99 mmol/L (98-107) Carbon Dioxide Level 24 mmol/L (21-32) Anion Gap 11 (6-14) Blood Urea Nitrogen 55 mg/dL (8-26) Creatinine 11.7 mg/dL (0.7-1.3) Estimated GFR (Cockcroft-Gault) 4.4 BUN/Creatinine Ratio 5 (6-20) Glucose Level 94 mg/dL (70-99) Calcium Level 9.2 mg/dL (8.5-10.1) Total Bilirubin 0.5 mg/dL (0.2-1.0) Aspartate Amino Transf (AST/SGOT) 71 U/L (15-37) Alanine Aminotransferase (ALT/SGPT) 25 U/L (16-63) Alkaline Phosphatase 50 U/L (46-116) Total Protein 7.7 g/dL (6.4-8.2) Albumin 2.4 g/dL (3.4-5.0) Albumin/Globulin Ratio 0.5 (1.0-1.7) Test 08/26/18 11:15 Glucose (Fingerstick) 184 mg/dL (70-99) Microbiology 08/25/18 Blood Culture - Preliminary, Resulted NO GROWTH AFTER 1 DAY Medications Current Medications Sodium Chloride 250 ml @ 250 mls/hr 1X ONCE IV Last administered on 08/25/18at 11:18; Start 08/25/18 at 11:00; Stop 08/25/18 at 11:59; Status DC Acetaminophen (Tylenol) 1,000 mg 1X ONCE PO Last administered on 08/25/18at 11:00; Start 08/25/18 at 11:00; Stop 08/25/18 at 11:01; Status DC Ondansetron HCl (Zofran) 4 mg 1X ONCE IV Last administered on 08/25/18at 11:18; Start 08/25/18 at 11:15; Stop 08/25/18 at 11:16; Status DC Ondansetron HCl (Zofran) 4 mg STK-MED ONCE .ROUTE ; Start 08/25/18 at 11:15; Stop 08/25/18 at 11:16; Status DC Ceftriaxone Sodium (Rocephin) 1 gm 1X ONCE IVP ; Start 08/25/18 at 11:30; Stop 08/25/18 at 11:36; Status DC Vancomycin HCl 250 ml @ 250 mls/hr 1X ONCE IV Last administered on 08/25/18at 11:30; Start 08/25/18 at 11:30; Stop 08/25/18 at 12:29; Status DC Piperacillin Sod/ Tazobactam Sod (Zosyn Per Pharmacy) 1 each PRN DAILY PRN MC SEE COMMENTS; Start 08/25/18 at 11:45 Sodium Chloride 1,000 ml @ 1,000 mls/hr 1X ONCE IV Last administered on 08/25/18at 11:45; Start 08/25/18 at 11:45; Stop 08/25/18 at 12:44; Status DC Piperacillin Sod/ Tazobactam Sod 2.25 gm/Sodium Chloride 50 ml @ 100 mls/hr 1X ONCE IV Last administered on 08/25/18at 11:45; Start 08/25/18 at 11:45; Stop 08/25/18 at 12:14; Status DC Sodium Chloride 1,000 ml @ 100 mls/hr Q10H IV Last administered on 08/25/18at 20:21; Start 08/25/18 at 13:15; Stop 08/26/18 at 11:23; Status DC Piperacillin Sod/ Tazobactam Sod 2.25 gm/Sodium Chloride 50 ml @ 100 mls/hr Q8HRS IV Last administered on 08/26/18at 05:24; Start 08/25/18 at 22:00 Famotidine (Pepcid Vial) 20 mg DAILY IVP Last administered on 08/26/18at 08:53; Start 08/25/18 at 15:30; Stop 08/26/18 at 12:21; Status DC Acetaminophen (Tylenol) 650 mg PRN Q6HRS PRN PO FEVER Last administered on 08/26/18at 08:33; Start 08/26/18 at 00:30 Acetaminophen (Tylenol Supp) 650 mg PRN Q6HRS PRN DC FEVER; Start 08/26/18 at 00:30 Vancomycin HCl (Vanco Per Pharmacy) 1 each PRN DAILY PRN MC SEE COMMENTS Last administered on 08/26/18at 12:11; Start 08/26/18 at 11:00 Fluconazole (Diflucan) 200 mg DAILY PO Last administered on 08/26/18at 12:30; Start 08/26/18 at 12:00 Ascorbic Acid (Vitamin C) 500 mg DAILY PO Last administered on 08/26/18at 12:30; Start 08/26/18 at 13:00 Multivitamins (Thera M Plus) 1 tab DAILY PO Last administered on 08/26/18at 12:30; Start 08/26/18 at 13:00 Pantoprazole Sodium (Protonix) 40 mg DAILYAC PO ; Start 08/26/18 at 13:00 Active Scripts Active Zofran Odt (Ondansetron) 4 Mg Tab.rapdis 4 Mg PO BID PRN Tamiflu (Oseltamivir Phosphate) 75 Mg Capsule 1 Cap PO BID Reported Aspirin 81 Mg Tab.chew 1 Tab PO DAILY Acetaminophen 500 Mg Tablet 1 Tab PO BID PRN Renal Vitamin Tablet (Folic Acid/Vit Bcomp,C) 0.8 Mg Tablet 0.8 Mg PO DAILY Humalog (Insulin Lispro) 100 Unit/1 Ml Insuln.pen 55 Unit SQ [id number] Humalog (Insulin Lispro) 100 Unit/1 Ml Insuln.pen 50 Unit SQ BIDACBL Lantus Solostar (Insulin Glargine,Hum.rec.anlog) 100 Unit/1 Ml Insuln.pen 60-70 Unit SQ BID 60 units breakfast 70 units dinner Warfarin Sodium 5 Mg Tablet 5 Mg PO DAILY Vitals/I & O Vital Sign - Last 24 Hours 08/25/18 08/25/18 08/25/18 08/25/18 14:59 16:00 16:04 19:00 Temp 102.2 103.1 102.2 103.1 Pulse 120 115 102 Resp 16 20 14 B/P (MAP) 151/65 (93) 124/58 (80) 92/34 (53) Pulse Ox 92 94 87 O2 Delivery Nasal Cannula Room Air Nasal Cannula Room Air O2 Flow Rate 2.0 2.0 08/25/18 08/25/18 08/26/18 08/26/18 20:00 23:00 00:35 03:00 Temp 102.5 100.5 102.5 100.5 Pulse 96 86 Resp 20 18 B/P (MAP) 83/37 (52) 126/50 (75) 101/45 (63) Pulse Ox 92 100 O2 Delivery Nasal Cannula Nasal Cannula Nasal Cannula O2 Flow Rate 2.0 2.0 2.0 08/26/18 08/26/18 08/26/18 07:00 08:00 11:00 Temp 99.6 98.1 99.6 98.1 Pulse 94 83 Resp 20 18 B/P (MAP) 117/34 (61) 102/54 (70) Pulse Ox 97 95 O2 Delivery Nasal Cannula Room Air Nasal Cannula O2 Flow Rate 2.0 2.0 Intake and Output 0 08/25/18 08/25/18 08/26/18 15:00 23:00 07:00 Intake Total 0 ml Balance 0 ml DAMIAN DURAN III DO August 26, 2018 13:42
--- NOTE | 2018-08-26 13:44 | PDOC ---
PROGRESS NOTES Chief Complaint Chief Complaint Fever and chills Leukocytosis BC + with Strep Lower ext infected ulcers Obesity Yeast infection in skin folds ESRD on HD Chronic diarrhea History of Present Illness History of Present Illness Patient seen and examined He's improving Subspecialist notes reviewed Discussed with RN Vitals Vitals Vital Signs Date Time Temp Pulse Resp B/P (MAP) Pulse Ox O2 Delivery O2 Flow Rate FiO2 08/26/18 11:00 98.1 83 18 102/54 (70) 95 Nasal Cannula 2.0 98.1 Physical Exam General: Alert, Oriented X3, Cooperative, No acute distress Heart: Regular rate, Normal S1 Lungs: Clear, Crackles Abdomen: Soft, No tenderness Extremities: No clubbing, No cyanosis, Other (muscular atrophy with ulcerations of lower anterior legs) Skin: No rashes, No breakdown Labs LABS Laboratory Tests Test 08/25/18 14:50 08/25/18 21:07 08/26/18 03:05 08/26/18 07:39 Lactic Acid Level 2.7 mmol/L (0.4-2.0) 0.9 mmol/L (0.4-2.0) Glucose (Fingerstick) 120 mg/dL (70-99) 73 mg/dL (70-99) White Blood Count 19.0 x10^3/uL (4.0-11.0) Red Blood Count 2.99 x10^6/uL (4.30-5.70) Hemoglobin 9.8 g/dL (13.0-17.5) Hematocrit 29.5 % (39.0-53.0) Mean Corpuscular Volume 99 fL (79-100) Mean Corpuscular Hemoglobin 33 pg (25-35) Mean Corpuscular Hemoglobin Concent 33 g/dL (31-37) Red Cell Distribution Width 15.7 % (11.5-14.5) Platelet Count 192 x10^3/uL (140-400) Sodium Level 134 mmol/L (136-145) Potassium Level 4.5 mmol/L (3.5-5.1) Chloride Level 99 mmol/L (98-107) Carbon Dioxide Level 24 mmol/L (21-32) Anion Gap 11 (6-14) Blood Urea Nitrogen 55 mg/dL (8-26) Creatinine 11.7 mg/dL (0.7-1.3) Estimated GFR (Cockcroft-Gault) 4.4 BUN/Creatinine Ratio 5 (6-20) Glucose Level 94 mg/dL (70-99) Calcium Level 9.2 mg/dL (8.5-10.1) Total Bilirubin 0.5 mg/dL (0.2-1.0) Aspartate Amino Transf (AST/SGOT) 71 U/L (15-37) Alanine Aminotransferase (ALT/SGPT) 25 U/L (16-63) Alkaline Phosphatase 50 U/L (46-116) Total Protein 7.7 g/dL (6.4-8.2) Albumin 2.4 g/dL (3.4-5.0) Albumin/Globulin Ratio 0.5 (1.0-1.7) Test 08/26/18 11:15 Glucose (Fingerstick) 184 mg/dL (70-99) Review of Systems Review of Systems Complains of weakness and hunger Assessment and Plan Assessmemt and Plan Problems Medical Problems: (1) ESRD (end stage renal disease) Status: Acute Fever and chills Leukocytosis BC + with Strep Lower ext infected ulcers Obesity Yeast infection in skin folds ESRD on HD Chronic diarrhea Plan Thursday HD When necessary Zofran Home meds DVT prophylaxis Frequent labs Appreciate subspecialist input Comment Review of Relevant I have reviewed the following items joyce (where applicable) has been applied. Labs Laboratory Tests Test 08/25/18 09:50 08/25/18 10:13 08/25/18 14:50 08/25/18 21:07 White Blood Count 32.7 x10^3/uL (4.0-11.0) Red Blood Count 3.60 x10^6/uL (4.30-5.70) Hemoglobin 11.5 g/dL (13.0-17.5) Hematocrit 35.1 % (39.0-53.0) Mean Corpuscular Volume 98 fL (79-100) Mean Corpuscular Hemoglobin 32 pg (25-35) Mean Corpuscular Hemoglobin Concent 33 g/dL (31-37) Red Cell Distribution Width 15.5 % (11.5-14.5) Platelet Count 249 x10^3/uL (140-400) Neutrophils (%) (Auto) 94 % (31-73) Lymphocytes (%) (Auto) 4 % (24-48) Monocytes (%) (Auto) 2 % (0-9) Eosinophils (%) (Auto) 0 % (0-3) Basophils (%) (Auto) 0 % (0-3) Neutrophils # (Auto) 30.8 x10^3uL (1.8-7.7) Lymphocytes # (Auto) 1.1 x10^3/uL (1.0-4.8) Monocytes # (Auto) 0.7 x10^3/uL (0.0-1.1) Eosinophils # (Auto) 0.1 x10^3/uL (0.0-0.7) Basophils # (Auto) 0.0 x10^3/uL (0.0-0.2) Segmented Neutrophils % 85 % (35-66) Band Neutrophils % 10 % (0-9) Lymphocytes % 4 % (24-48) Monocytes % 1 % (0-10) Platelet Estimate Adequate (ADEQUATE) Prothrombin Time 35.3 SEC (11.7-14.0) Prothromb Time International Ratio 3.5 (0.8-1.1) Sodium Level 138 mmol/L (136-145) Potassium Level 4.7 mmol/L (3.5-5.1) Chloride Level 96 mmol/L (98-107) Carbon Dioxide Level 28 mmol/L (21-32) Anion Gap 14 (6-14) Blood Urea Nitrogen 43 mg/dL (8-26) Creatinine 9.0 mg/dL (0.7-1.3) Estimated GFR (Cockcroft-Gault) 6.0 BUN/Creatinine Ratio 5 (6-20) Glucose Level 98 mg/dL (70-99) Lactic Acid Level 3.0 mmol/L (0.4-2.0) 2.7 mmol/L (0.4-2.0) Calcium Level 10.0 mg/dL (8.5-10.1) Iron Level 17 ug/dL (65-175) Total Iron Binding Capacity 207 ug/dL (250-450) Iron Saturation 8 % (15-34) Total Bilirubin 0.5 mg/dL (0.2-1.0) Aspartate Amino Transf (AST/SGOT) 24 U/L (15-37) Alanine Aminotransferase (ALT/SGPT) 27 U/L (16-63) Alkaline Phosphatase 71 U/L (46-116) Total Protein 9.2 g/dL (6.4-8.2) Albumin 3.0 g/dL (3.4-5.0) Albumin/Globulin Ratio 0.5 (1.0-1.7) Lipase 53 U/L (73-393) Vitamin B12 Level 436 pg/mL (247-911) Influenza Type A Antigen Negative (NEGATIVE) Influenza Type B Antigen Negative (NEGATIVE) Glucose (Fingerstick) 120 mg/dL (70-99) Test 08/26/18 03:05 08/26/18 07:39 08/26/18 11:15 White Blood Count 19.0 x10^3/uL (4.0-11.0) Red Blood Count 2.99 x10^6/uL (4.30-5.70) Hemoglobin 9.8 g/dL (13.0-17.5) Hematocrit 29.5 % (39.0-53.0) Mean Corpuscular Volume 99 fL (79-100) Mean Corpuscular Hemoglobin 33 pg (25-35) Mean Corpuscular Hemoglobin Concent 33 g/dL (31-37) Red Cell Distribution Width 15.7 % (11.5-14.5) Platelet Count 192 x10^3/uL (140-400) Sodium Level 134 mmol/L (136-145) Potassium Level 4.5 mmol/L (3.5-5.1) Chloride Level 99 mmol/L (98-107) Carbon Dioxide Level 24 mmol/L (21-32) Anion Gap 11 (6-14) Blood Urea Nitrogen 55 mg/dL (8-26) Creatinine 11.7 mg/dL (0.7-1.3) Estimated GFR (Cockcroft-Gault) 4.4 BUN/Creatinine Ratio 5 (6-20) Glucose Level 94 mg/dL (70-99) Lactic Acid Level 0.9 mmol/L (0.4-2.0) Calcium Level 9.2 mg/dL (8.5-10.1) Total Bilirubin 0.5 mg/dL (0.2-1.0) Aspartate Amino Transf (AST/SGOT) 71 U/L (15-37) Alanine Aminotransferase (ALT/SGPT) 25 U/L (16-63) Alkaline Phosphatase 50 U/L (46-116) Total Protein 7.7 g/dL (6.4-8.2) Albumin 2.4 g/dL (3.4-5.0) Albumin/Globulin Ratio 0.5 (1.0-1.7) Glucose (Fingerstick) 73 mg/dL (70-99) 184 mg/dL (70-99) Laboratory Tests Test 08/25/18 14:50 08/25/18 21:07 08/26/18 03:05 08/26/18 07:39 Lactic Acid Level 2.7 mmol/L (0.4-2.0) 0.9 mmol/L (0.4-2.0) Glucose (Fingerstick) 120 mg/dL (70-99) 73 mg/dL (70-99) White Blood Count 19.0 x10^3/uL (4.0-11.0) Red Blood Count 2.99 x10^6/uL (4.30-5.70) Hemoglobin 9.8 g/dL (13.0-17.5) Hematocrit 29.5 % (39.0-53.0) Mean Corpuscular Volume 99 fL (79-100) Mean Corpuscular Hemoglobin 33 pg (25-35) Mean Corpuscular Hemoglobin Concent 33 g/dL (31-37) Red Cell Distribution Width 15.7 % (11.5-14.5) Platelet Count 192 x10^3/uL (140-400) Sodium Level 134 mmol/L (136-145) Potassium Level 4.5 mmol/L (3.5-5.1) Chloride Level 99 mmol/L (98-107) Carbon Dioxide Level 24 mmol/L (21-32) Anion Gap 11 (6-14) Blood Urea Nitrogen 55 mg/dL (8-26) Creatinine 11.7 mg/dL (0.7-1.3) Estimated GFR (Cockcroft-Gault) 4.4 BUN/Creatinine Ratio 5 (6-20) Glucose Level 94 mg/dL (70-99) Calcium Level 9.2 mg/dL (8.5-10.1) Total Bilirubin 0.5 mg/dL (0.2-1.0) Aspartate Amino Transf (AST/SGOT) 71 U/L (15-37) Alanine Aminotransferase (ALT/SGPT) 25 U/L (16-63) Alkaline Phosphatase 50 U/L (46-116) Total Protein 7.7 g/dL (6.4-8.2) Albumin 2.4 g/dL (3.4-5.0) Albumin/Globulin Ratio 0.5 (1.0-1.7) Test 08/26/18 11:15 Glucose (Fingerstick) 184 mg/dL (70-99) Microbiology 08/25/18 Blood Culture - Preliminary, Resulted NO GROWTH AFTER 1 DAY Medications Current Medications Sodium Chloride 250 ml @ 250 mls/hr 1X ONCE IV Last administered on 08/25/18at 11:18; Start 08/25/18 at 11:00; Stop 08/25/18 at 11:59; Status DC Acetaminophen (Tylenol) 1,000 mg 1X ONCE PO Last administered on 08/25/18at 11:00; Start 08/25/18 at 11:00; Stop 08/25/18 at 11:01; Status DC Ondansetron HCl (Zofran) 4 mg 1X ONCE IV Last administered on 08/25/18at 11:18; Start 08/25/18 at 11:15; Stop 08/25/18 at 11:16; Status DC Ondansetron HCl (Zofran) 4 mg STK-MED ONCE .ROUTE ; Start 08/25/18 at 11:15; Stop 08/25/18 at 11:16; Status DC Ceftriaxone Sodium (Rocephin) 1 gm 1X ONCE IVP ; Start 08/25/18 at 11:30; Stop 08/25/18 at 11:36; Status DC Vancomycin HCl 250 ml @ 250 mls/hr 1X ONCE IV Last administered on 08/25/18at 11:30; Start 08/25/18 at 11:30; Stop 08/25/18 at 12:29; Status DC Piperacillin Sod/ Tazobactam Sod (Zosyn Per Pharmacy) 1 each PRN DAILY PRN MC SEE COMMENTS; Start 08/25/18 at 11:45 Sodium Chloride 1,000 ml @ 1,000 mls/hr 1X ONCE IV Last administered on 08/25/18at 11:45; Start 08/25/18 at 11:45; Stop 08/25/18 at 12:44; Status DC Piperacillin Sod/ Tazobactam Sod 2.25 gm/Sodium Chloride 50 ml @ 100 mls/hr 1X ONCE IV Last administered on 08/25/18at 11:45; Start 08/25/18 at 11:45; Stop 08/25/18 at 12:14; Status DC Sodium Chloride 1,000 ml @ 100 mls/hr Q10H IV Last administered on 08/25/18at 20:21; Start 08/25/18 at 13:15; Stop 08/26/18 at 11:23; Status DC Piperacillin Sod/ Tazobactam Sod 2.25 gm/Sodium Chloride 50 ml @ 100 mls/hr Q8HRS IV Last administered on 08/26/18at 05:24; Start 08/25/18 at 22:00 Famotidine (Pepcid Vial) 20 mg DAILY IVP Last administered on 08/26/18at 08:53; Start 08/25/18 at 15:30; Stop 08/26/18 at 12:21; Status DC Acetaminophen (Tylenol) 650 mg PRN Q6HRS PRN PO FEVER Last administered on 08/26/18at 08:33; Start 08/26/18 at 00:30 Acetaminophen (Tylenol Supp) 650 mg PRN Q6HRS PRN [place] FEVER; Start 08/26/18 at 00:30 Vancomycin HCl (Vanco Per Pharmacy) 1 each PRN DAILY PRN MC SEE COMMENTS Last administered on 08/26/18at 12:11; Start 08/26/18 at 11:00 Fluconazole (Diflucan) 200 mg DAILY PO Last administered on 08/26/18at 12:30; S tart 08/26/18 at 12:00 Ascorbic Acid (Vitamin C) 500 mg DAILY PO Last administered on 08/26/18at 12:30; Start 08/26/18 at 13:00 Multivitamins (Thera M Plus) 1 tab DAILY PO Last administered on 08/26/18at 12:30; Start 08/26/18 at 13:00 Pantoprazole Sodium (Protonix) 40 mg DAILYAC PO ; Start 08/26/18 at 13:00 Active Scripts Active Zofran Odt (Ondansetron) 4 Mg Tab.rapdis 4 Mg PO BID PRN Tamiflu (Oseltamivir Phosphate) 75 Mg Capsule 1 Cap PO BID Reported Aspirin 81 Mg Tab.chew 1 Tab PO DAILY Acetaminophen 500 Mg Tablet 1 Tab PO BID PRN Renal Vitamin Tablet (Folic Acid/Vit Bcomp,C) 0.8 Mg Tablet 0.8 Mg PO DAILY Humalog (Insulin Lispro) 100 Unit/1 Ml Insuln.pen 55 Unit SQ DAILYBFRSUP Humalog (Insulin Lispro) 100 Unit/1 Ml Insuln.pen 50 Unit SQ BIDACBL Lantus Solostar (Insulin Glargine,Hum.rec.anlog) 100 Unit/1 Ml Insuln.pen 60-70 Unit SQ BID 60 units breakfast 70 units dinner Warfarin Sodium 5 Mg Tablet 5 Mg PO DAILY Vitals/I & O Vital Sign - Last 24 Hours 08/25/18 08/25/18 08/25/18 08/25/18 14:59 16:00 16:04 19:00 Temp 102.2 103.1 102.2 103.1 Pulse 120 115 102 Resp 16 20 14 B/P (MAP) 151/65 (93) 124/58 (80) 92/34 (53) Pulse Ox 92 94 87 O2 Delivery Nasal Cannula Room Air Nasal Cannula Room Air O2 Flow Rate 2.0 2.0 08/25/18 08/25/18 08/26/18 08/26/18 20:00 23:00 00:35 03:00 Temp 102.5 100.5 102.5 100.5 Pulse 96 86 Resp 20 18 B/P (MAP) 83/37 (52) 126/50 (75) 101/45 (63) Pulse Ox 92 100 O2 Delivery Nasal Cannula Nasal Cannula Nasal Cannula O2 Flow Rate 2.0 2.0 2.0 08/26/18 08/26/18 08/26/18 07:00 08:00 11:00 Temp 99.6 98.1 99.6 98.1 Pulse 94 83 Resp 20 18 B/P (MAP) 117/34 (61) 102/54 (70) Pulse Ox 97 95 O2 Delivery Nasal Cannula Room Air Nasal Cannula O2 Flow Rate 2.0 2.0 Intake and Output 08/25/18 08/25/18 08/26/18 15:00 23:00 07:00 Intake Total 0 ml Balance 0 ml CASTLE,NIAL K III DO August 26, 2018 13:44
--- NOTE | 2018-08-26 14:05 | NUR ---
Pharmacy Vancomycin Dosing Note S:Consulted to monitor and dose vancomycin started 08/25/18. O:ELENITA SHEPHERD is a 63 year old M with Sepsis . Height: 6 feet, 4 inches Weight: 154.879923 kg [place] Body Weight: 252.40 Adjusted Body Weight: Dosing Weight: Other Antibiotics: ZOSYN LABS: Last BUN: 55 Last Creatinine: 11.7 Creatinine Clearance: HD mL/min Last WBC: 19.0 Last Procalcitonin: Tmax (past 24 hours): 103.1 Microbiology: I/O: Drug Levels: Last level: on at Last dose given at Vancomycin Dosing: Loading Dose: 2000 mg x1 Dosing Weight: Target Trough: 15-20 A: Based on: ht, wt and renal fxn P: 1. Begin Vancomycin 500 mg IV p ea HD 2. Follow up level on at 3. Pharmacy will continue to monitor, follow and adjust therapy as needed. HUI CANALES, [facility], 08/26/18 [id number]
[2018-08-26] MEDS: PANTOPRAZOLE 40 MG TABLET.DR. PO SCH (14:16)
[2018-08-26] MEDS ORDERED: VANCOMYCIN 1 GM in IV NORMAL SALINE 250ML 250 ML IV ONE (15:00)
--- NOTE | 2018-08-26 15:19 | NUR ---
Wound care: Patient seen per wound care consult. See wound assessment. Dressings removed and wounds cleansed and assessed. Patient has bilateral lower extremity wounds. Recommendations for medi-honey, xeroform gauze, ABD pads, and kerlix. Dressings applied and patient tolerated well. No other wounds noted upon complete head to toe assessment. Dressing change instructions left in room. Bed lowered and call light in reach. Will follow regarding wound care.
[2018-08-26] MEDS: LACTOBACILLUS RHAMNOSUS GG 1 CAPSULE. PO SCH (20:47)
--- NOTE | 2018-08-26 22:33 | NUR ---
Pt has had more than 3 loose stools in the past 48 hours however after filling out the cdiff req unable to send sample down since pt has history of loose stools due to colon resection. Pt states his loose stools are normal. Received ok to resume home meds.
[2018-08-27] MEDS ORDERED: ACETAMINOPHEN 500 MG TABLET PO PRN (01:45)
--- NOTE | 2018-08-27 01:57 | CONS ---
DATE OF CONSULTATION: 08/26/2018 REQUESTING PHYSICIAN: Dr. Lily Foster. REASON FOR CONSULTATION: Sepsis. HISTORY OF PRESENT ILLNESS: This is a 63-year-old gentleman with morbid obesity, who also is on dialysis, presented with while on dialysis, he started having fever and chills. The patient was brought in. The patient was noted to have a fever up to 103.1, white count 32,000. Does have chronic diarrhea. Blood culture is positive, now with gram-positive cocci in pairs and chains. The patient has received Zosyn and one dose of vancomycin. The patient is feeling better. He has had vomited once in the ER. Denies any nausea right now. Denies any chest pain, shortness of breath, abdominal pain. He does have chronic diarrhea after having colon surgery 5 years ago. Denies any headache or visual symptoms. PAST MEDICAL HISTORY: Positive for end-stage renal disease, on hemodialysis; morbid obesity; hypertension; hyperlipidemia; deep venous thrombosis, he has had colon resection done, diabetes and anemia. SOCIAL HISTORY: Negative for smoking, occasional alcohol use, no drug use. Lives with the . ALLERGIES: No known drug allergies. CURRENT MEDICATIONS: Reviewed. REVIEW OF SYSTEMS: As per HPI, all other systems reviewed are negative. PHYSICAL EXAMINATION: GENERAL: Alert and oriented gentleman, not in any distress. VITAL SIGNS: Stable, now down to 99.6, T-max is 103.2, pulse 94, respirations 20, blood pressure 117/34. HEENT: Both pupils are round and reacting. No conjunctival lesion. No lesion in the mouth. NECK: Supple, no JVP, no lymphadenopathy. LUNGS: Clear. HEART: S1, S2 regular. ABDOMEN: Rather large with pannus, yeast infection between the skin folds and the groin. EXTREMITIES: There are chronic venous insufficiency and ulcerations. In fact, one of the ulcer on the left leg has purulent drainage. Both legs have chronic ulcers. Rest of the extremity examination is unremarkable. NEUROLOGICAL: The patient is neurologically alert, awake and appropriate. No focal neurologic deficit. Does have left upper arm fistula. No apparent signs of infection. LABORATORY DATA: White count is down from 32,000-19,000. BUN and creatinine is 55 and 11.7. Influenza screen is negative. Blood culture as I mentioned positive. Abdominal pelvic CT showed complex ventral hernia involving both the small and large bowel. The patient has had hemorrhagic cyst that is actually improving. Chest x-ray is unremarkable other than atelectasis. IMPRESSION: 1. Fever and chills. 2. Leukocytosis. 3. Blood culture positive. Gram-positive cocci in pairs and chains. All points towards sepsis. 4. Infected lower extremity ulcers, bilateral. 5. End-stage renal disease, on hemodialysis. 6. Diabetes. 7. Hypertension. 8. Obesity. RECOMMENDATIONS: I would continue Zosyn. Vancomycin will be redosed as a regular dosing. We will follow the cultures. Local wound care to the legs. Supportive care and we will continue to follow. The patient also was advised to lose weight. Thank you very much, Dr. Foster, for giving me the opportunity to participate in this patient's care. AMY PICKETT MD DR: RUSSELL/tariq JOB#: [id number] / [id number]
[2018-08-27 03:35] VITALS: BP 117/58
[2018-08-27] MEDS: PIPERACILLIN/TAZOBACTAM 2.25 GM in IV NORMAL SALINE 50ML 50 ML IV SCH ×3 (06:29→21:12)
[2018-08-27 07:00] VITALS: BP 145/75
[2018-08-27] MEDS: INSULIN LISPRO 300 UNITS/3 ML INSULN.PEN. SQ SCH ×3 (07:30→16:46)
[2018-08-27] MEDS: PANTOPRAZOLE 40 MG TABLET.DR. PO SCH (08:15)
[2018-08-27] MEDS: MULTIVITAMIN with MINERAL TABLET. PO SCH (08:15)
[2018-08-27] MEDS: FLUCONAZOLE 100 MG TABLET. PO SCH (08:15)
[2018-08-27] MEDS: ASPIRIN CHEWABLE 81 MG TABLET. PO SCH (08:15)
[2018-08-27] MEDS: ASCORBIC ACID 500 MG TABLET PO SCH (08:15)
[2018-08-27] MEDS: FOLIC/VIT B COMP W-C (RENAL) TABLET. PO SCH (08:15)
[2018-08-27] MEDS: LACTOBACILLUS RHAMNOSUS GG 1 CAPSULE. PO SCH ×2 (08:15→21:19)
[2018-08-27] MEDS: INSULIN GLARGINE 300 UNITS/3 ML INSULN.PEN. SQ SCH ×2 (08:27→21:30)
[2018-08-27] MEDS ORDERED: IV NORMAL SALINE 1000ML BAG 1,000 ML IV PRN ×2 (09:07)
[2018-08-27] MEDS ORDERED: diphenhydrAMINE 50 MG/ML VIAL IV PRN ×2 (09:15)
[2018-08-27] MEDS ORDERED: DIALYSIS PATIENT. MC PRN (09:15)
--- NOTE | 2018-08-27 09:35 | PDOC ---
SURGICAL PROGRESS NOTE Subjective no n/v no abdominal pain having stool and flatus Vital Signs Vital Signs Date Time Temp Pulse Resp B/P (MAP) Pulse Ox O2 Delivery O2 Flow Rate FiO2 08/27/18 07:00 98.0 83 18 145/75 (98) 94 Nasal Cannula 2.0 98.0 I&O Intake and Output 08/27/18 06:59 Intake Total 1240 ml Balance 1240 ml Intake Oral 1240 ml # Voids 1 # Bowel Movements 2 General: Alert, Oriented X3, Cooperative, No acute distress Abdomen: Soft, No tenderness Labs Laboratory Tests Test 08/25/18 09:50 08/25/18 10:13 08/25/18 14:50 08/25/18 21:07 White Blood Count 32.7 x10^3/uL (4.0-11.0) Red Blood Count 3.60 x10^6/uL (4.30-5.70) Hemoglobin 11.5 g/dL (13.0-17.5) Hematocrit 35.1 % (39.0-53.0) Mean Corpuscular Volume 98 fL (79-100) Mean Corpuscular Hemoglobin 32 pg (25-35) Mean Corpuscular Hemoglobin Concent 33 g/dL (31-37) Red Cell Distribution Width 15.5 % (11.5-14.5) Platelet Count 249 x10^3/uL (140-400) Neutrophils (%) (Auto) 94 % (31-73) Lymphocytes (%) (Auto) 4 % (24-48) Monocytes (%) (Auto) 2 % (0-9) Eosinophils (%) (Auto) 0 % (0-3) Basophils (%) (Auto) 0 % (0-3) Neutrophils # (Auto) 30.8 x10^3uL (1.8-7.7) Lymphocytes # (Auto) 1.1 x10^3/uL (1.0-4.8) Monocytes # (Auto) 0.7 x10^3/uL (0.0-1.1) Eosinophils # (Auto) 0.1 x10^3/uL (0.0-0.7) Basophils # (Auto) 0.0 x10^3/uL (0.0-0.2) Segmented Neutrophils % 85 % (35-66) Band Neutrophils % 10 % (0-9) Lymphocytes % 4 % (24-48) Monocytes % 1 % (0-10) Platelet Estimate Adequate (ADEQUATE) Prothrombin Time 35.3 SEC (11.7-14.0) Prothromb Time International Ratio 3.5 (0.8-1.1) Sodium Level 138 mmol/L (136-145) Potassium Level 4.7 mmol/L (3.5-5.1) Chloride Level 96 mmol/L (98-107) Carbon Dioxide Level 28 mmol/L (21-32) Anion Gap 14 (6-14) Blood Urea Nitrogen 43 mg/dL (8-26) Creatinine 9.0 mg/dL (0.7-1.3) Estimated GFR (Cockcroft-Gault) 6.0 BUN/Creatinine Ratio 5 (6-20) Glucose Level 98 mg/dL (70-99) Lactic Acid Level 3.0 mmol/L (0.4-2.0) 2.7 mmol/L (0.4-2.0) Calcium Level 10.0 mg/dL (8.5-10.1) Iron Level 17 ug/dL (65-175) Total Iron Binding Capacity 207 ug/dL (250-450) Iron Saturation 8 % (15-34) Total Bilirubin 0.5 mg/dL (0.2-1.0) Aspartate Amino Transf (AST/SGOT) 24 U/L (15-37) Alanine Aminotransferase (ALT/SGPT) 27 U/L (16-63) Alkaline Phosphatase 71 U/L (46-116) Total Protein 9.2 g/dL (6.4-8.2) Albumin 3.0 g/dL (3.4-5.0) Albumin/Globulin Ratio 0.5 (1.0-1.7) Lipase 53 U/L (73-393) Vitamin B12 Level 436 pg/mL (247-911) Influenza Type A Antigen Negative (NEGATIVE) Influenza Type B Antigen Negative (NEGATIVE) Glucose (Fingerstick) 120 mg/dL (70-99) Test 08/26/18 03:05 08/26/18 07:39 08/26/18 10:50 08/26/18 11:15 White Blood Count 19.0 x10^3/uL (4.0-11.0) Red Blood Count 2.99 x10^6/uL (4.30-5.70) Hemoglobin 9.8 g/dL (13.0-17.5) Hematocrit 29.5 % (39.0-53.0) Mean Corpuscular Volume 99 fL (79-100) Mean Corpuscular Hemoglobin 33 pg (25-35) Mean Corpuscular Hemoglobin Concent 33 g/dL (31-37) Red Cell Distribution Width 15.7 % (11.5-14.5) Platelet Count 192 x10^3/uL (140-400) Sodium Level 134 mmol/L (136-145) Potassium Level 4.5 mmol/L (3.5-5.1) Chloride Level 99 mmol/L (98-107) Carbon Dioxide Level 24 mmol/L (21-32) Anion Gap 11 (6-14) Blood Urea Nitrogen 55 mg/dL (8-26) Creatinine 11.7 mg/dL (0.7-1.3) Estimated GFR (Cockcroft-Gault) 4.4 BUN/Creatinine Ratio 5 (6-20) Glucose Level 94 mg/dL (70-99) Lactic Acid Level 0.9 mmol/L (0.4-2.0) Calcium Level 9.2 mg/dL (8.5-10.1) Total Bilirubin 0.5 mg/dL (0.2-1.0) Aspartate Amino Transf (AST/SGOT) 71 U/L (15-37) Alanine Aminotransferase (ALT/SGPT) 25 U/L (16-63) Alkaline Phosphatase 50 U/L (46-116) Total Protein 7.7 g/dL (6.4-8.2) Albumin 2.4 g/dL (3.4-5.0) Albumin/Globulin Ratio 0.5 (1.0-1.7) Glucose (Fingerstick) 73 mg/dL (70-99) 184 mg/dL (70-99) Nasal Screen MRSA (PCR) Negative (Negative) Test 08/26/18 17:02 08/26/18 19:48 08/27/18 07:16 Glucose (Fingerstick) 152 mg/dL (70-99) 214 mg/dL (70-99) 140 mg/dL (70-99) Laboratory Tests Test 08/26/18 10:50 08/26/18 11:15 5/2/19 17:02 08/26/18 19:48 Nasal Screen MRSA (PCR) Negative (Negative) Glucose (Fingerstick) 184 mg/dL (70-99) 152 mg/dL (70-99) 214 mg/dL (70-99) Test 08/27/18 07:16 Glucose (Fingerstick) 140 mg/dL (70-99) Problem List Problems Medical Problems: (1) ESRD (end stage renal disease) Status: Acute Assessment/Plan improved advance diet as tolerated ILYA ULLOA BLEACH MAKER August 27, 2018 09:35
--- NOTE | 2018-08-27 10:53 | PDOC ---
SUBJECTIVE ROS Seen on HD, tolerating well. Denies vomiting, states feeling good OBJECTIVE Vital Signs Vital Signs Date Time Temp Pulse Resp B/P (MAP) Pulse Ox O2 Delivery O2 Flow Rate FiO2 08/27/18 08:00 Room Air 08/27/18 07:00 98.0 83 18 145/75 (98) 94 2.0 98.0 I & 0 Intake and Output 08/27/18 07:00 Intake Total 1240 ml Balance 1240 ml Intake Oral 1240 ml # Voids 1 # Bowel Movements 2 PHYSICAL EXAM Physical Exam GEN: NAD, Morbidly obese HEENT: Om moist NECK: Supple CVS: S1S2, RRR RESP: CTA, No Acc. Muscle Use GI: BS + ve, Obese : No CVA tenderness, No Suprapubic Tenderness, No Villas[place]or EXT: Edema + NEURO- Grossly Normal SKIN No rash DIAGNOSIS/ASSESSMENT Assessment & Plan ESRD - HD MWF Roberto( Dr. Ortiz) Seen on HD tolerating well, Continue as ordered Discussed with Boot Repairer Hypotensive- at presentation, Recd IVF BP at goal GI Symptoms, Fever, Leukocytosis - Abnormal CT - ventral hernias involving large and small bowel GI, GS, ID following Chronic anemia- GI following H/o colon cancer and right hemicolectomy - apparently no adjuvant therapy, no colonoscopy since diagnosis (2014) H/o DVT and PE, s/p IVC filter, anti-coagulated w/ Warfarin COMMENT/RELEVANT DATA Meds Current Medications Medications (Trade) Dose Ordered Sig/Cristian Start Time Stop Time Status Last Admin Dose Admin Acetaminophen (Tylenol Supp) 650 mg PRN Q6HRS PRN 08/26/18 00:30 Acetaminophen (Tylenol) 500 mg PRN BID PRN 08/27/18 01:45 Ascorbic Acid (Vitamin C) 500 mg DAILY 08/26/18 13:00 08/27/18 08:15 500 MG Aspirin (Children'S Aspirin) 81 mg DAILYWBKFT 08/27/18 08:00 08/27/18 08:15 81 MG Ceftriaxone Sodium (Rocephin) 1 gm 1X ONCE 08/25/18 11:30 08/25/18 11:36 DC Diphenhydramine HCl (Benadryl) 25 mg 1X PRN PRN 08/27/18 09:15 08/28/18 09:14 Famotidine (Pepcid Vial) 20 mg DAILY 08/25/18 15:30 08/26/18 12:21 DC 08/26/18 08:53 20 MG Fluconazole (Diflucan) 200 mg DAILY 08/26/18 12:00 08/27/18 08:15 200 MG Info (PHARMACY MONITORING -- do not chart) 1 each PRN DAILY PRN 08/27/18 09:15 Insulin Glargine (Lantus) 60 units BID 08/27/18 09:00 Insulin Human Lispro (HumaLOG) 55 units DAILYBFRSUP 08/27/18 17:00 Lactobacillus Rhamnosus (Culturelle) 1 cap BID 08/26/18 21:00 08/27/18 08:15 1 CAP Multivitamins (Thera M Plus) 1 tab DAILY 08/26/18 13:00 08/27/18 08:15 1 TAB Ondansetron HCl (Zofran) 4 mg STK-MED ONCE 08/25/18 11:15 08/25/18 11:16 DC Pantoprazole Sodium (Protonix) 40 mg DAILYAC 08/26/18 13:00 08/27/18 08:15 40 MG Piperacillin Sod/ Tazobactam Sod (Zosyn Per Pharmacy) 1 each PRN DAILY PRN 08/25/18 11:45 Piperacillin Sod/ Tazobactam Sod 2.25 gm/Sodium Chloride 50 ml @ 100 mls/hr Q8HRS 08/25/18 22:00 08/27/18 06:29 100 MLS/HR Sodium Chloride 1,000 ml @ 400 mls/hr Q2H30M PRN 08/27/18 09:07 08/27/18 21:06 Vancomycin HCl (Vanco Per Pharmacy) 1 each PRN DAILY PRN 08/26/18 11:00 08/26/18 13:55 1 EACH Vancomycin HCl (Vancomycin Random Level) 1 each 1X ONCE 08/28/18 06:00 08/28/18 06:01 Vancomycin HCl 500 mg/Sodium Chloride 100 ml @ 100 mls/hr QMWF 08/27/18 16:00 Vancomycin HCl 1 gm/Sodium Chloride 250 ml @ 250 mls/hr 1X ONCE 08/26/18 15:00 08/26/18 15:59 DC 08/26/18 15:53 250 MLS/HR Vitamin B Complex/ Vitamin C (Cassie-Nyla) 1 tab DAILY 08/27/18 09:00 08/27/18 08:15 1 TAB Warfarin Sodium (Coumadin Per Physician) 1 each PRN DAILY PRN 08/27/18 16:00 Warfarin Sodium (Coumadin) 5 mg DAILY16 08/27/18 16:00 Lab Laboratory Tests Test 08/26/18 10:50 08/26/18 11:15 08/26/18 17:02 08/26/18 19:48 Nasal Screen MRSA (PCR) Negative (Negative) Glucose (Fingerstick) 184 mg/dL (70-99) 152 mg/dL (70-99) 214 mg/dL (70-99) Test 08/27/18 07:16 Glucose (Fingerstick) 140 mg/dL (70-99) Results All relevant outside records, renal labs, imaging studies, telemetry/EKG's were reviewed. ANABEL GASRIA MD August 27, 2018 10:53
[2018-08-27] MEDS: VANCOMYCIN PER PHARMACY MC PRN ×2 (11:37→14:21)
--- NOTE | 2018-08-27 11:42 | PDOC ---
[employer] PROGRESS NOTE Chief Complaint Chief Complaint Fever and chills Leukocytosis BC + with Strep Lower ext infected ulcers Obesity Yeast infection in skin folds ESRD on HD Chronic diarrhea History of Present Illness History of Present Illness Patient seen and examined He's improving Subspecialist notes reviewed Discussed with RN Patient is currently on dialysis Discussed with dialysis nurse Javon Vitals Vitals Vital Signs Date Time Temp Pulse Resp B/P (MAP) Pulse Ox O2 Delivery O2 Flow Rate FiO2 08/27/18 08:00 Room Air 08/27/18 07:00 98.0 83 18 145/75 (98) 94 2.0 98.0 Physical Exam General: Alert, Oriented X3, Cooperative, No acute distress Heart: Regular rate, Normal S1 Lungs: Clear, Crackles Abdomen: Soft, No tenderness Extremities: No clubbing, No cyanosis, Other (muscular atrophy with ulcerations of lower anterior legs) Skin: No rashes, No breakdown Labs LABS Laboratory Tests Test 08/26/18 17:02 08/26/18 19:48 08/27/18 07:16 Glucose (Fingerstick) 152 mg/dL (70-99) 214 mg/dL (70-99) 140 mg/dL (70-99) Review of Systems Review of Systems He complains of weakness and hunger Assessment and Plan Assessmemt and Plan Problems Medical Problems: (1) ESRD (end stage renal disease) Status: Acute Fever and chills Leukocytosis BC + with Strep Lower ext infected ulcers Obesity Yeast infection in skin folds ESRD on HD Chronic diarrhea Plan Hemodialysis Thursday IV antibiotics Wound care Full code DVT prophylaxis Home meds PT OT Appreciate subspecialist input Comment Review of Relevant I have reviewed the following items joyce (where applicable) has been applied. Labs Laboratory Tests Test 08/25/18 14:50 08/25/18 21:07 08/26/18 03:05 08/26/18 07:39 Lactic Acid Level 2.7 mmol/L (0.4-2.0) 0.9 mmol/L (0.4-2.0) Glucose (Fingerstick) 120 mg/dL (70-99) 73 mg/dL (70-99) White Blood Count 19.0 x10^3/uL (4.0-11.0) Red Blood Count 2.99 x10^6/uL (4.30-5.70) Hemoglobin 9.8 g/dL (13.0-17.5) Hematocrit 29.5 % (39.0-53.0) Mean Corpuscular Volume 99 fL (79-100) Mean Corpuscular Hemoglobin 33 pg (25-35) Mean Corpuscular Hemoglobin Concent 33 g/dL (31-37) Red Cell Distribution Width 15.7 % (11.5-14.5) Platelet Count 192 x10^3/uL (140-400) Sodium Level 134 mmol/L (136-145) Potassium Level 4.5 mmol/L (3.5-5.1) Chloride Level 99 mmol/L (98-107) Carbon Dioxide Level 24 mmol/L (21-32) Anion Gap 11 (6-14) Blood Urea Nitrogen 55 mg/dL (8-26) Creatinine 11.7 mg/dL (0.7-1.3) Estimated GFR (Cockcroft-Gault) 4.4 BUN/Creatinine Ratio 5 (6-20) Glucose Level 94 mg/dL (70-99) Calcium Level 9.2 mg/dL (8.5-10.1) Total Bilirubin 0.5 mg/dL (0.2-1.0) Aspartate Amino Transf (AST/SGOT) 71 U/L (15-37) Alanine Aminotransferase (ALT/SGPT) 25 U/L (16-63) Alkaline Phosphatase 50 U/L (46-116) Total Protein 7.7 g/dL (6.4-8.2) Albumin 2.4 g/dL (3.4-5.0) Albumin/Globulin Ratio 0.5 (1.0-1.7) Test 08/26/18 10:50 08/26/18 11:15 08/26/18 17:02 08/26/18 19:48 Nasal Screen MRSA (PCR) Negative (Negative) Glucose (Fingerstick) 184 mg/dL (70-99) 152 mg/dL (70-99) 214 mg/dL (70-99) Test 08/27/18 07:16 Glucose (Fingerstick) 140 mg/dL (70-99) Laboratory Tests Test 08/26/18 17:02 08/26/18 19:48 08/27/18 07:16 Glucose (Fingerstick) 152 mg/dL (70-99) 214 mg/dL (70-99) 140 mg/dL (70-99) Microbiology 08/25/18 Blood Culture - Preliminary, Resulted NO GROWTH AFTER 1 DAY Medications Current Medications Sodium Chloride 250 ml @ 250 mls/hr 1X ONCE IV Last administered on 08/25/18at 11:18; Start 08/25/18 at 11:00; Stop 08/25/18 at 11:59; Status DC Acetaminophen (Tylenol) 1,000 mg 1X ONCE PO Last administered on 08/25/18at 11:00; Start 08/25/18 at 11:00; Stop 08/25/18 at 11:01; Status DC Ondansetron HCl (Zofran) 4 mg 1X ONCE IV Last administered on 08/25/18at 11:18; Start 08/25/18 at 11:15; Stop 08/25/18 at 11:16; Status DC Ondansetron HCl (Zofran) 4 mg STK-MED ONCE .ROUTE ; Start 08/25/18 at 11:15; Stop 08/25/18 at 11:16; Status DC Ceftriaxone Sodium (Rocephin) 1 gm 1X ONCE IVP ; Start 08/25/18 at 11:30; Stop 08/25/18 at 11:36; Status DC Vancomycin HCl 250 ml @ 250 mls/hr 1X ONCE IV Last administered on 08/25/18at 11:30; Start 08/25/18 at 11:30; Stop 08/25/18 at 12:29; Status DC Piperacillin Sod/ Tazobactam Sod (Zosyn Per Pharmacy) 1 each PRN DAILY PRN MC SEE COMMENTS; Start 08/25/18 at 11:45 Sodium Chloride 1,000 ml @ 1,000 mls/hr 1X ONCE IV Last administered on 08/25/18at 11:45; Start 08/25/18 at 11:45; Stop 08/25/18 at 12:44; Status DC Piperacillin Sod/ Tazobactam Sod 2.25 gm/Sodium Chloride 50 ml @ 100 mls/hr 1X ONCE IV Last administered on 08/25/18at 11:45; Start 08/25/18 at 11:45; Stop 08/25/18 at 12:14; Status DC Sodium Chloride 1,000 ml @ 100 mls/hr Q10H IV Last administered on 08/25/18at 20:21; Start 08/25/18 at 13:15; Stop 08/26/18 at 11:23; Status DC Piperacillin Sod/ Tazobactam Sod 2.25 gm/Sodium Chloride 50 ml @ 100 mls/hr Q8HRS IV Last administered on 08/27/18at 06:29; Start 08/25/18 at 22:00 Famotidine (Pepcid Vial) 20 mg DAILY IVP Last administered on 08/26/18at 08:53; Start 08/25/18 at 15:30; Stop 08/26/18 at 12:21; Status DC Acetaminophen (Tylenol) 650 mg PRN Q6HRS PRN PO FEVER Last administered on at 08:33; Start 08/26/18 at 00:30 Acetaminophen (Tylenol Supp) 650 mg PRN Q6HRS PRN [place] FEVER; Start 08/26/18 at 00:30 Vancomycin HCl (Vanco Per Pharmacy) 1 each PRN DAILY PRN MC SEE COMMENTS Last administered on 08/27/18at 11:37; Start 08/26/18 at 11:00 Fluconazole (Diflucan) 200 mg DAILY PO Last administered on 08/27/18at 08:15; Start 08/26/18 at 12:00 Ascorbic Acid (Vitamin C) 500 mg DAILY PO Last administered on 08/27/18at 08:15; Start 08/26/18 at 13:00 Multivitamins (Thera M Plus) 1 tab DAILY PO Last administered on 08/27/18at 08:15; Start 08/26/18 at 13:00 Pantoprazole Sodium (Protonix) 40 mg DAILYAC PO Last administered on 08/27/18at 08:15; Start 08/26/18 at 13:00 Vancomycin HCl 1 gm/Sodium Chloride 250 ml @ 250 mls/hr 1X ONCE IV Last administered on 08/26/18at 15:53; Start 08/26/18 at 15:00; Stop 08/26/18 at 15:59; Status DC Vancomycin HCl 500 mg/Sodium Chloride 100 ml @ 100 mls/hr QMWF IV ; Start 08/27/18 at 16:00 Vancomycin HCl (Vancomycin Random Level) 1 each 1X ONCE MC ; Start 08/28/18 at 06:00; Stop 08/28/18 at 06:01 Lactobacillus Rhamnosus (Culturelle) 1 cap BID PO Last administered on 08/27/18at 08:15; Start 08/26/18 at 21:00 Aspirin (Children'S Aspirin) 81 mg DAILYWBKFT PO Last administered on 08/27/18at 08:15; Start 08/27/18 at 08:00 Vitamin B Complex/ Vitamin C (Cassie-Nyla) 1 tab DAILY PO Last administered on 08/27/18at 08:15; Start 08/27/18 at 09:00 Insulin Glargine (Lantus) 60 units BID SQ ; Start 08/27/18 at 09:00 Insulin Human Lispro (HumaLOG) 50 units BIDACBL SQ ; Start 08/27/18 at 07:30 Insulin Human Lispro (HumaLOG) 55 units DAILYBFRSUP SQ ; Start 08/27/18 at 17:00 Acetaminophen (Tylenol) 500 mg PRN BID PRN PO PAIN; Start 08/27/18 at 01:45 Warfarin Sodium (Coumadin) 5 mg DAILY16 PO ; Start 08/27/18 at 16:00 Warfarin Sodium (Coumadin Per Physician) 1 each PRN DAILY PRN MC SEE COMMENTS; Start 08/27/18 at 16:00 Sodium Chloride 1,000 ml @ 1,000 mls/hr Q1H PRN IV hypotension; Start 08/27/18 at 09:07; Stop 08/27/18 at 15:06 Diphenhydramine HCl (Benadryl) 25 mg 1X PRN PRN IV ITCHING; Start 08/27/18 at 09:15; Stop 08/28/18 at 09:14 Diphenhydramine HCl (Benadryl) 25 mg 1X PRN PRN IV ITCHING; Start 08/27/18 at 09:15; Stop 08/28/18 at 09:14 Sodium Chloride 1,000 ml @ 400 mls/hr Q2H30M PRN IV PATENCY; Start 08/27/18 at 09:07; Stop 08/27/18 at 21:06 Info (PHARMACY MONITORING -- do not chart) 1 each PRN DAILY PRN MC SEE COMMENTS; Start 08/27/18 at 09:15 Active Scripts Active Zofran Odt (Ondansetron) 4 Mg Tab.rapdis 4 Mg PO BID PRN Tamiflu (Oseltamivir Phosphate) 75 Mg Capsule 1 Cap PO BID Reported Aspirin 81 Mg Tab.chew 1 Tab PO DAILY Acetaminophen 500 Mg Tablet 1 Tab PO BID PRN Renal Vitamin Tablet (Folic Acid/Vit Bcomp,C) 0.8 Mg Tablet 0.8 Mg PO DAILY Humalog (Insulin Lispro) 100 Unit/1 Ml Insuln.pen 55 Unit SQ DAILYBFRSUP Humalog (Insulin Lispro) 100 Unit/1 Ml Insuln.pen 50 Unit SQ BIDACBL Lantus Solostar (Insulin Glargine,Hum.rec.anlog) 100 Unit/1 Ml Insuln.pen 60-70 Unit SQ BID 60 units breakfast 70 units dinner Warfarin Sodium 5 Mg Tablet 5 Mg PO DAILY Vitals/I & O Vital Sign - Last 24 Hours 08/26/18 08/26/18 08/26/18 08/26/18 15:00 19:56 20:00 23:01 Temp 98.0 98.8 99.4 98.0 98.8 99.4 Pulse 76 87 93 Resp 18 B/P (MAP) 114/64 (81) 146/43 (77) 104/37 (59) Pulse Ox 96 93 O2 Delivery Nasal Cannula Nasal Cannula Room Air Nasal Cannula O2 Flow Rate 2.0 2.0 2.0 2.0 08/27/18 08/27/18 08/27/18 03:35 07:00 08:00 Temp 99.8 98.0 99.8 98.0 Pulse 89 83 Resp 18 B/P (MAP) 117/58 (77) 145/75 (98) Pulse Ox 100 94 O2 Delivery Nasal Cannula Nasal Cannula Room Air O2 Flow Rate 2.0 2.0 Intake and Output 08/26/18 08/26/18 08/27/18 15:00 23:00 07:00 Intake Total 640 ml 350 ml 250 ml Balance 640 ml 350 ml 250 ml CASTLE,NIAL K III DO August 27, 2018 11:42
--- NOTE | 2018-08-27 12:19 | PDOC ---
Infectious Disease Note Subjective Subjective pt is feeling good ROS ROS no n/v/d/sob Vital Sign Vital Signs Vital Signs Date Time Temp Pulse Resp B/P (MAP) Pulse Ox O2 Delivery O2 Flow Rate FiO2 08/27/18 08:00 Room Air 08/27/18 07:00 98.0 83 18 145/75 (98) 94 2.0 98.0 Physical Exam PHYSICAL EXAM GENERAL: Alert and oriented gentleman, not in any distress. VITAL SIGNS: Stable HEENT: Both pupils are round and reacting. No conjunctival lesion. No lesion in the mouth. NECK: Supple, no JVP, no lymphadenopathy. LUNGS: Clear. HEART: S1, S2 regular. ABDOMEN: Rather large with pannus, yeast infection between the skin folds and the groin. EXTREMITIES: There are chronic venous insufficiency and ulcerations. In fact, one of the ulcer on the left leg has purulent drainage. Both legs have chronic ulcers. Rest of the extremity examination is unremarkable. NEUROLOGICAL: The patient is neurologically alert, awake and appropriate. No focal neurologic deficit. Does have left upper arm fistula. No apparent signs of infection. Labs Lab Laboratory Tests Test 08/26/18 17:02 08/26/18 19:48 08/27/18 07:16 Glucose (Fingerstick) 152 mg/dL (70-99) 214 mg/dL (70-99) 140 mg/dL (70-99) Micro BC + Objective Assessment Fever and chills Leukocytosis BC + with Strep Lower ext infected ulcers Obesity Yeast infection in skin folds ESRD on HD Chronic diarrhea Plan Plan of Care vanc and zosyn wound care diflucan supportive care d/w wt loss AMY PICKETT MD August 27, 2018 12:19
--- NOTE | 2018-08-27 14:35 | PDOC ---
[facility] PROGRESS NOTE Reason for Follow-up N/V/abd pain Subjective Tolerating PO/feeling better Physical Exam Lungs decreased BS CV S1 S2 ABD rotund, +BS, soft, distended Review of Relevant I have reviewed the following items joyce (where applicable) has been applied. Labs Laboratory Tests Test 08/25/18 14:50 08/25/18 21:07 08/26/18 03:05 08/26/18 07:39 Lactic Acid Level 2.7 mmol/L (0.4-2.0) 0.9 mmol/L (0.4-2.0) Glucose (Fingerstick) 120 mg/dL (70-99) 73 mg/dL (70-99) White Blood Count 19.0 x10^3/uL (4.0-11.0) Red Blood Count 2.99 x10^6/uL (4.30-5.70) Hemoglobin 9.8 g/dL (13.0-17.5) Hematocrit 29.5 % (39.0-53.0) Mean Corpuscular Volume 99 fL (79-100) Mean Corpuscular Hemoglobin 33 pg (25-35) Mean Corpuscular Hemoglobin Concent 33 g/dL (31-37) Red Cell Distribution Width 15.7 % (11.5-14.5) Platelet Count 192 x10^3/uL (140-400) Sodium Level 134 mmol/L (136-145) Potassium Level 4.5 mmol/L (3.5-5.1) Chloride Level 99 mmol/L (98-107) Carbon Dioxide Level 24 mmol/L (21-32) Anion Gap 11 (6-14) Blood Urea Nitrogen 55 mg/dL (8-26) Creatinine 11.7 mg/dL (0.7-1.3) Estimated GFR (Cockcroft-Gault) 4.4 BUN/Creatinine Ratio 5 (6-20) Glucose Level 94 mg/dL (70-99) Calcium Level 9.2 mg/dL (8.5-10.1) Total Bilirubin 0.5 mg/dL (0.2-1.0) Aspartate Amino Transf (AST/SGOT) 71 U/L (15-37) Alanine Aminotransferase (ALT/SGPT) 25 U/L (16-63) Alkaline Phosphatase 50 U/L (46-116) Total Protein 7.7 g/dL (6.4-8.2) Albumin 2.4 g/dL (3.4-5.0) Albumin/Globulin Ratio 0.5 (1.0-1.7) Test 08/26/18 10:50 08/26/18 11:15 08/26/18 17:02 08/26/18 19:48 Nasal Screen MRSA (PCR) Negative (Negative) Glucose (Fingerstick) 184 mg/dL (70-99) 152 mg/dL (70-99) 214 mg/dL (70-99) Test 08/27/18 07:16 Glucose (Fingerstick) 140 mg/dL (70-99) Laboratory Tests Test 08/26/18 17:02 08/26/18 19:48 08/27/18 07:16 Glucose (Fingerstick) 152 mg/dL (70-99) 214 mg/dL (70-99) 140 mg/dL (70-99) Microbiology 08/25/18 Blood Culture - Preliminary, Resulted NO GROWTH AFTER 2 DAYS Medications Current Medications Sodium Chloride 250 ml @ 250 mls/hr 1X ONCE IV Last administered on 08/25/18at 11:18; Start 08/25/18 at 11:00; Stop 08/25/18 at 11:59; Status DC Acetaminophen (Tylenol) 1,000 mg 1X ONCE PO Last administered on 08/25/18at 11:00; Start 08/25/18 at 11:00; Stop 08/25/18 at 11:01; Status DC Ondansetron HCl (Zofran) 4 mg 1X ONCE IV Last administered on 08/25/18at 11:18; Start 08/25/18 at 11:15; Stop 08/25/18 at 11:16; Status DC Ondansetron HCl (Zofran) 4 mg STK-MED ONCE .ROUTE ; Start 08/25/18 at 11:15; Stop 08/25/18 at 11:16; Status DC Ceftriaxone Sodium (Rocephin) 1 gm 1X ONCE IVP ; Start 08/25/18 at 11:30; Stop 08/25/18 at 11:36; Status DC Vancomycin HCl 250 ml @ 250 mls/hr 1X ONCE IV Last administered on 08/25/18at 11:30; Start 08/25/18 at 11:30; Stop 08/25/18 at 12:29; Status DC Piperacillin Sod/ Tazobactam Sod (Zosyn Per Pharmacy) 1 each PRN DAILY PRN MC SEE COMMENTS; Start 08/25/18 at 11:45 Sodium Chloride 1,000 ml @ 1,000 mls/hr 1X ONCE IV Last administered on 08/25/18at 11:45; Start 08/25/18 at 11:45; Stop 08/25/18 at 12:44; Status DC Piperacillin Sod/ Tazobactam Sod 2.25 gm/Sodium Chloride 50 ml @ 100 mls/hr 1X ONCE IV Last administered on 08/25/18at 11:45; Start 08/25/18 at 11:45; Stop 08/25/18 at 12:14; Status DC Sodium Chloride 1,000 ml @ 100 mls/hr Q10H IV Last administered on 08/25/18at 20:21; Start 08/25/18 at 13:15; Stop 08/26/18 at 11:23; Status DC Piperacillin Sod/ Tazobactam Sod 2.25 gm/Sodium Chloride 50 ml @ 100 mls/hr Q8HRS IV Last administered on 08/27/18at 14:00; Start 08/25/18 at 22:00 Famotidine (Pepcid Vial) 20 mg DAILY IVP Last administered on 08/26/18at 08:53; Start 08/25/18 at 15:30; Stop 08/26/18 at 12:21; Status DC Acetaminophen (Tylenol) 650 mg PRN Q6HRS PRN PO FEVER Last administered on 08/26/18at 08:33; Start 08/26/18 at 00:30 Acetaminophen (Tylenol Supp) 650 mg PRN Q6HRS PRN [place] FEVER; Start 08/26/18 at 00:30 Vancomycin HCl (Vanco Per Pharmacy) 1 each PRN DAILY PRN MC SEE COMMENTS Last administered on 08/27/18at 14:21; Start 08/26/18 at 11:00 Fluconazole (Diflucan) 200 mg DAILY PO Last administered on 08/27/18at 08:15; Start 08/26/18 at 12:00 Ascorbic Acid (Vitamin C) 500 mg DAILY PO Last administered on 08/27/18at 08:15; Start 08/26/18 at 13:00 Multivitamins (Thera M Plus) 1 tab DAILY PO Last administered on 08/27/18at 08:15; Start 08/26/18 at 13:00 Pantoprazole Sodium (Protonix) 40 mg DAILYAC PO Last administered on 08/27/18at 08:15; Start 08/26/18 at 13:00 Vancomycin HCl 1 gm/Sodium Chloride 250 ml @ 250 mls/hr 1X ONCE IV Last administered on 08/26/18at 15:53; Start 08/26/18 at 15:00; Stop 08/26/18 at 15:59; Status DC Vancomycin HCl 500 mg/Sodium Chloride 100 ml @ 100 mls/hr QMWF IV ; Start 08/27/18 at 16:00 Vancomycin HCl (Vancomycin Random Level) 1 each 1X ONCE MC ; Start 08/28/18 at 06:00; Stop 08/28/18 at 06:01 Lactobacillus Rhamnosus (Culturelle) 1 cap BID PO Last administered on 08/27/18at 08:15; Start 08/26/18 at 21:00 Aspirin (Children'S Aspirin) 81 mg DAILYWBKFT PO Last administered on 08/27/18at 08:15; Start 08/27/18 at 08:00 Vitamin B Complex/ Vitamin C (Cassie-Nyla) 1 tab DAILY PO Last administered on 08/27/18at 08:15; Start 08/27/18 at 09:00 Insulin Glargine (Lantus) 60 units BID SQ ; Start 08/27/18 at 09:00 Insulin Human Lispro (HumaLOG) 50 units BIDACBL SQ ; Start 08/27/18 at 07:30 Insulin Human Lispro (HumaLOG) 55 units DAILYBFRSUP SQ ; Start 08/27/18 at 17:00 Acetaminophen (Tylenol) 500 mg PRN BID PRN PO PAIN; Start 08/27/18 at 01:45 Warfarin Sodium (Coumadin) 5 mg DAILY16 PO ; Start 08/27/18 at 16:00 Warfarin Sodium (Coumadin Per Physician) 1 each PRN DAILY PRN MC SEE COMMENTS Last administered on 08/27/18at 14:11; Start 08/27/18 at 16:00 Sodium Chloride 1,000 ml @ 1,000 mls/hr Q1H PRN IV hypotension; Start 08/27/18 at 09:07; Stop 08/27/18 at 15:06 Diphenhydramine HCl (Benadryl) 25 mg 1X PRN PRN IV ITCHING; Start 08/27/18 at 09:15; Stop 08/28/18 at 09:14 Diphenhydramine HCl (Benadryl) 25 mg 1X PRN PRN IV ITCHING; Start 08/27/18 at 09:15; Stop 08/28/18 at 09:14 Sodium Chloride 1,000 ml @ 400 mls/hr Q2H30M PRN IV PATENCY; Start 08/27/18 at 09:07; Stop 08/27/18 at 21:06 Info (PHARMACY MONITORING -- do not chart) 1 each PRN DAILY PRN MC SEE COMMENTS; Start 08/27/18 at 09:15 Active Scripts Active Zofran Odt (Ondansetron) 4 Mg Tab.rapdis 4 Mg PO BID PRN Tamiflu (Oseltamivir Phosphate) 75 Mg Capsule 1 Cap PO BID Reported Aspirin 81 Mg Tab.chew 1 Tab PO DAILY Acetaminophen 500 Mg Tablet 1 Tab PO BID PRN Renal Vitamin Tablet (Folic Acid/Vit Bcomp,C) 0.8 Mg Tablet 0.8 Mg PO DAILY Humalog (Insulin Lispro) 100 Unit/1 Ml Insuln.pen 55 Unit SQ DAILYBFRSUP Humalog (Insulin Lispro) 100 Unit/1 Ml Insuln.pen 50 Unit SQ BIDACBL Lantus Solostar (Insulin Glargine,Hum.rec.anlog) 100 Unit/1 Ml Insuln.pen 60-70 Unit SQ BID 60 units breakfast 70 units dinner Warfarin Sodium 5 Mg Tablet 5 Mg PO DAILY Vitals/I & O Vital Sign - Last 24 Hours 08/26/18 08/26/18 08/26/18 08/26/18 15:00 19:56 20:00 23:01 Temp 98.0 98.8 99.4 98.0 98.8 99.4 Pulse 76 87 93 Resp 18 18 18 B/P (MAP) 114/64 (81) 146/43 (77) 104/37 (59) Pulse Ox 96 93 O2 Delivery Nasal Cannula Nasal Cannula Room Air Nasal Cannula O2 Flow Rate 2.0 2.0 2.0 2.0 08/27/18 08/27/18 08/27/18 03:35 07:00 08:00 Temp 99.8 98.0 99.8 98.0 Pulse 89 83 Resp 18 18 B/P (MAP) 117/58 (77) 145/75 (98) Pulse Ox 100 94 O2 Delivery Nasal Cannula Nasal Cannula Room Air O2 Flow Rate 2.0 2.0 Intake and Output 08/26/18 08/26/18 08/27/18 15:00 23:00 07:00 Intake Total 640 ml 350 ml 250 ml Balance 640 ml 350 ml 250 ml Problem List Problems Medical Problems: (1) ESRD (end stage renal disease) Status: Acute Assessment Abd pain- with ESRD and ventral hernia, partial SBO resolving , patient poor surgical risk for hernia repair, CPM LIVIA PERALTA MD August 27, 2018 14:35
[2018-08-27 15:00] VITALS: BP 109/57
[2018-08-27 15:21] LABS: PROTHROMBIN TIME PATIENT 25.9 SEC (11.7-14.0)
[2018-08-27] MEDS ORDERED: VANCOMYCIN 500 MG in IV NORMAL SALINE 100ML 100 ML IV SCH (16:00)
[2018-08-27] MEDS: WARFARIN 5 MG TABLET. PO SCH (16:42)
[2018-08-27 19:00] VITALS: BP 115/61
[2018-08-27 22:47] VITALS: BP 101/44
[2018-08-28 02:50] VITALS: BP 107/44
[2018-08-28 04:48] LABS: PROTHROMBIN TIME PATIENT 22.6 SEC (11.7-14.0)
[2018-08-28] MEDS: PIPERACILLIN/TAZOBACTAM 2.25 GM in IV NORMAL SALINE 50ML 50 ML IV SCH ×3 (05:22→21:49)
[2018-08-28] MEDS ORDERED: VANCOMYCIN RANDOM LEVEL. MC ONE (06:00)
[2018-08-28 07:00] VITALS: BP 155/70
[2018-08-28] MEDS: VANCOMYCIN PER PHARMACY MC PRN (07:33)
--- NOTE | 2018-08-28 07:33 | NUR ---
Pharmacy Vancomycin Dosing Note S:Consulted to monitor and dose vancomycin started 08/25/18. O:ELENITA SHEPHERD is a 63 year old M with Sepsis . Height: 6 feet, 4 inches Weight: 153.317109 kg [place] Body Weight: 86.80 Adjusted Body Weight: 113.48 Dosing Weight: Other Antibiotics: ZOSYN LABS: Last BUN: 55 Last Creatinine: 11.7 Creatinine Clearance: HD MWF mL/min Last WBC: 19.0 Last Procalcitonin: Tmax (past 24 hours): 99.5 Microbiology: BLOOD: GRAM POSITIVE COCCI IN CHAINS IN 1 OF 4 BOTTLES (2 SETS COLLECTED). I/O: 60/- Drug Levels: Last Random level: 19.2 on 08/28/18 at 0340 Last dose given 08/27/18 at 1635 Vancomycin Dosing: Loading Dose: 2000 mg x1 Dosing Weight: Target Trough: 15-20 A: Based on: Random level 19.2 P: 1. Give 500mg x1 today, then continue Vancomycin 500 mg IV after HD MWF 2. Follow up Random level as needed. 3. Pharmacy will continue to monitor, follow and adjust therapy as needed. DYLON DE LOS SANTOS RP, 08/28/18 [id number]
--- NOTE | 2018-08-28 08:07 | PDOC ---
PROGRESS NOTES Chief Complaint Chief Complaint Fever and chills Leukocytosis BC + with Strep Lower ext infected ulcers Obesity Yeast infection in skin folds ESRD on HD Chronic diarrhea ANEMIA SEC ckd History of Present Illness History of Present Illness Patient seen and examined Subspecialist notes reviewed Discussed with RN Patient is currently on dialysis CONT IV vanc and zosyn ESRD and ventral hernia, partial SBO resolving , patient poor surgical risk for hernia repair, Vitals Vitals Vital Signs Date Time Temp Pulse Resp B/P (MAP) Pulse Ox O2 Delivery O2 Flow Rate FiO2 08/28/18 02:50 98.5 82 18 107/44 (65) 90 Room Air 98.5 08/27/18 07:00 2.0 Physical Exam Physical Exam GENERAL: Alert and oriented gentleman, not in any distress. VITAL SIGNS: Stable HEENT: Both pupils are round and reacting. No conjunctival lesion. No lesion in the mouth. NECK: Supple, no JVP, no lymphadenopathy. LUNGS: Clear. HEART: S1, S2 regular. ABDOMEN: Rather large with pannus, yeast infection between the skin folds and the groin. EXTREMITIES: There are chronic venous insufficiency and ulcerations. In fact, one of the ulcer on the left leg has purulent drainage. Both legs have chronic ulcers. Rest of the extremity examination is unremarkable. NEUROLOGICAL: The patient is neurologically alert, awake and appropriate. No focal neurologic deficit. Does have left upper arm fistula. No apparent signs of infection. General: Alert, Oriented X3, Cooperative, No acute distress, mild distress Heart: Regular rate, Normal S1, Normal S2 Lungs: Clear, Crackles Abdomen: Soft, No tenderness Extremities: No clubbing, No cyanosis, Other (muscular atrophy with ulcerations of lower anterior legs) Skin: No rashes, No breakdown Labs LABS CT of the abdomen and pelvis without contrast. 08/25/2018 12:11 PM Indication: Abdominal pain, vomiting. NO CONTRAST PREV SENT Comparison Study: CT abdomen and pelvis the 2014.. Technique: Multidetector CT imaging of the abdomen pelvis is obtained without administration of contrast. Findings: The visualized bilateral lung bases demonstrate no acute abnormality. Multiple calcified granulomata noted within the spleen. Liver and gallbladder are unremarkable. Pancreas and adrenal glands are unremarkable. The bilateral kidneys are severely atrophic. This is worsened in the interim since prior exam There is a 3.0 cm mass arising from the inferior pole of the left kidney with attenuation characteristics greater than would be expected for simple cyst. Lesion however has decreased in size with respect to the most recent comparison CT from June 16, 2014. This may or present a hemorrhagic cyst. Neoplasm is less likely given decrease in size. Correlate with clinical history. IVC filter is noted to be in place. Diastases of the anterior rectus musculature is noted. There is also complex ventral hernia. A superior left-sided hernia defect measures approximately 5.5 cm in diameter and contains a loop of large bowel. Immediately proximal to this there is some dilatation of the large bowel. A right colectomy appears to have been performed. Inferior to this there is a second ventral hernia containing more distal loop of large bowel. Associated loop of small bowel is also seen. Definitive evidence of obstruction is not identified though a partial obstruction is difficult to exclude in the absence of oral contrast. No free fluid or free air is seen in the abdomen or pelvis. No definitive inflammatory change involving visualized bowel is identified. There is no acute osseous abnormality identified. Impression: 1. Complex ventral hernia involving both small and large bowel, with mildly dilated proximal colon. A partial large bowel obstruction cannot be excluded. 2. Severe renal atrophy, a worsened in the interim. 3 cm mass arising from the inferior left kidney has decreased in size in the interim since May 2014 when it measured approximately 5 cm. This may represent a hemorrhagic cyst. A solid neoplasm is less likely given decrease in size. Further characterization with ultrasound may be helpful. CT DOSING PQRS STATEMENT: One or more of the following individualized dose reduction techniques were utilized for this examination: 1. Automated exposure control 2. Adjustment of the mA and/or kV according to patient size 3. Use of iterative reconstruction technique Electronically signed by: Giovanni Castro MD (08/25/2018 12:54 PM) [id number] DICTATED and SIGNED BY: GIOVANNI CASTRO MD DATE: 08/25/18 1254 Laboratory Tests Test 08/27/18 14:55 08/27/18 15:18 08/27/18 20:51 08/28/18 03:40 Prothrombin Time 25.9 SEC (11.7-14.0) 22.6 SEC (11.7-14.0) Prothromb Time International Ratio 2.4 (0.8-1.1) 2.0 (0.8-1.1) Glucose (Fingerstick) 347 mg/dL (70-99) 93 mg/dL (70-99) Random Vancomycin Level 19.2 mcg/mL Test 08/28/18 07:42 Glucose (Fingerstick) 209 mg/dL (70-99) Assessment and Plan Assessmemt and Plan Problems Medical Problems: (1) ESRD (end stage renal disease) Status: Acute Comment Review of Relevant I have reviewed the following items joyce (where applicable) has been applied. Labs Laboratory Tests Test 08/26/18 10:50 08/26/18 11:15 08/26/18 17:02 08/26/18 19:48 Nasal Screen MRSA (PCR) Negative (Negative) Glucose (Fingerstick) 184 mg/dL (70-99) 152 mg/dL (70-99) 214 mg/dL (70-99) Test 08/27/18 07:16 08/27/18 14:55 08/27/18 15:18 08/27/18 20:51 Glucose (Fingerstick) 140 mg/dL (70-99) 347 mg/dL (70-99) 93 mg/dL (70-99) Prothrombin Time 25.9 SEC (11.7-14.0) Prothromb Time International Ratio 2.4 (0.8-1.1) Test 08/28/18 03:40 08/28/18 07:42 Prothrombin Time 22.6 SEC (11.7-14.0) Prothromb Time International Ratio 2.0 (0.8-1.1) Random Vancomycin Level 19.2 mcg/mL Glucose (Fingerstick) 209 mg/dL (70-99) Laboratory Tests Test 08/27/18 14:55 08/27/18 15:18 08/27/18 20:51 08/28/18 03:40 Prothrombin Time 25.9 SEC (11.7-14.0) 22.6 SEC (11.7-14.0) Prothromb Time International Ratio 2.4 (0.8-1.1) 2.0 (0.8-1.1) Glucose (Fingerstick) 347 mg/dL (70-99) 93 mg/dL (70-99) Random Vancomycin Level 19.2 mcg/mL Test 08/28/18 07:42 Glucose (Fingerstick) 209 mg/dL (70-99) Microbiology 08/25/18 Blood Culture - Preliminary, Resulted NO GROWTH AFTER 2 DAYS Medications Current Medications Sodium Chloride 250 ml @ 250 mls/hr 1X ONCE IV Last administered on 08/25/18at 11:18; Start 08/25/18 at 11:00; Stop 08/25/18 at 11:59; Status DC Acetaminophen (Tylenol) 1,000 mg 1X ONCE PO Last administered on 08/25/18at 11:00; Start 08/25/18 at 11:00; Stop 08/25/18 at 11:01; Status DC Ondansetron HCl (Zofran) 4 mg 1X ONCE IV Last administered on 08/25/18at 11:18; Start 08/25/18 at 11:15; Stop 08/25/18 at 11:16; Status DC Ondansetron HCl (Zofran) 4 mg STK-MED ONCE .ROUTE ; Start 08/25/18 at 11:15; Stop 08/25/18 at 11:16; Status DC Ceftriaxone Sodium (Rocephin) 1 gm 1X ONCE IVP ; Start 08/25/18 at 11:30; Stop 08/25/18 at 11:36; Status DC Vancomycin HCl 250 ml @ 250 mls/hr 1X ONCE IV Last administered on 08/25/18at 11:30; Start 08/25/18 at 11:30; Stop 08/25/18 at 12:29; Status DC Piperacillin Sod/ Tazobactam Sod (Zosyn Per Pharmacy) 1 each PRN DAILY PRN MC SEE COMMENTS; Start 08/25/18 at 11:45 Sodium Chloride 1,000 ml @ 1,000 mls/hr 1X ONCE IV Last administered on 08/25/18at 11:45; Start 08/25/18 at 11:45; Stop 08/25/18 at 12:44; Status DC Piperacillin Sod/ Tazobactam Sod 2.25 gm/Sodium Chloride 50 ml @ 100 mls/hr 1X ONCE IV Last administered on 08/25/18at 11:45; Start 08/25/18 at 11:45; Stop 08/25/18 at 12:14; Status DC Sodium Chloride 1,000 ml @ 100 mls/hr Q10H IV Last administered on 08/25/18at 20:21; Start 08/25/18 at 13:15; Stop 08/26/18 at 11:23; Status DC Piperacillin Sod/ Tazobactam Sod 2.25 gm/Sodium Chloride 50 ml @ 100 mls/hr Q8HRS IV Last administered on 08/28/18 05:22; Start 08/25/18 at 22:00 Famotidine (Pepcid Vial) 20 mg DAILY IVP Last administered on 08/26/18 08:53; Start 08/25/18 at 15:30; Stop 08/26/18 at 12:21; Status DC Acetaminophen (Tylenol) 650 mg PRN Q6HRS PRN PO FEVER Last administered on 08/26/18 08:33; Start 08/26/18 at 00:30 Acetaminophen (Tylenol Supp) 650 mg PRN Q6HRS PRN AK FEVER; Start 08/26/18 at 00:30 Vancomycin HCl (Vanco Per Pharmacy) 1 each PRN DAILY PRN MC SEE COMMENTS Last administered on 08/28/18 07:33; Start 08/26/18 at 11:00 Fluconazole (Diflucan) 200 mg DAILY PO Last administered on 08/27/18 08:15; Start 08/26/18 at 12:00 Ascorbic Acid (Vitamin C) 500 mg DAILY PO Last administered on 08/27/18 08:15; Start 08/26/18 at 13:00 Multivitamins (Thera M Plus) 1 tab DAILY PO Last administered on 08/27/18 08:15; Start 08/26/18 at 13:00 Pantoprazole Sodium (Protonix) 40 mg DAILYAC PO Last administered on 08/27/18 08:15; Start 08/26/18 at 13:00 Vancomycin HCl 1 gm/Sodium Chloride 250 ml @ 250 mls/hr 1X ONCE IV Last administered on 08/26/18at 15:53; Start 08/26/18 at 15:00; Stop 08/26/18 at 15:59; Status DC Vancomycin HCl 500 mg/Sodium Chloride 100 ml @ 100 mls/hr QMWF IV Last administered on 08/27/18 16:35; Start 08/27/18 at 16:00 Vancomycin HCl (Vancomycin Random Level) 1 each 1X ONCE MC Last administered on 08/28/18at 06:00; Start 08/28/18 at 06:00; Stop 08/28/18 at 06:01; Status DC Lactobacillus Rhamnosus (Culturelle) 1 cap BID PO Last administered on 08/27/18at 21:19; Start 08/26/18 at 21:00 Aspirin (Children'S Aspirin) 81 mg DAILYWBKFT PO Last administered on 08/27/18at 08:15; Start 08/27/18 at 08:00 Vitamin B Complex/ Vitamin C (Cassie-Nyla) 1 tab DAILY PO Last administered on 08/27/18at 08:15; Start 08/27/18 at 09:00 Insulin Glargine (Lantus) 60 units BID SQ Last administered on 08/27/18at 21:30; Start 08/27/18 at 09:00 Insulin Human Lispro (HumaLOG) 50 units BIDACBL SQ ; Start 08/27/18 at 07:30 Insulin Human Lispro (HumaLOG) 55 units DAILYBFRSUP SQ Last administered on 08/27/18at 16:46; Start 08/27/18 at 17:00 Acetaminophen (Tylenol) 500 mg PRN BID PRN PO PAIN; Start 08/27/18 at 01:45 Warfarin Sodium (Coumadin) 5 mg DAILY16 PO Last administered on 08/27/18at 16:42; Start 08/27/18 at 16:00 Warfarin Sodium (Coumadin Per Physician) 1 each PRN DAILY PRN MC SEE COMMENTS Last administered on 08/28/18at 07:35; Start 08/27/18 at 16:00 Sodium Chloride 1,000 ml @ 1,000 mls/hr Q1H PRN IV hypotension; Start 08/27/18 at 09:07; Stop 08/27/18 at 15:06; Status DC Diphenhydramine HCl (Benadryl) 25 mg 1X PRN PRN IV ITCHING; Start 08/27/18 at 09:15; Stop 08/28/18 at 09:14 Diphenhydramine HCl (Benadryl) 25 mg 1X PRN PRN IV ITCHING; Start 08/27/18 at 09:15; Stop 08/28/18 at 09:14 Sodium Chloride 1,000 ml @ 400 mls/hr Q2H30M PRN IV PATENCY; Start 08/27/18 at 09:07; Stop 08/27/18 at 21:06; Status DC Info (PHARMACY MONITORING -- do not chart) 1 each PRN DAILY PRN MC SEE COMMENTS; Start 08/27/18 at 09:15 Vancomycin HCl 500 mg/Sodium Chloride 100 ml @ 100 mls/hr 1X ONCE IV ; Start 08/28/18 at 09:00; Stop 08/28/18 at 09:59 Active Scripts Active Zofran Odt (Ondansetron) 4 Mg Tab.rapdis 4 Mg PO BID PRN Tamiflu (Oseltamivir Phosphate) 75 Mg Capsule 1 Cap PO BID Reported Aspirin 81 Mg Tab.chew 1 Tab PO DAILY Acetaminophen 500 Mg Tablet 1 Tab PO BID PRN Renal Vitamin Tablet (Folic Acid/Vit Bcomp,C) 0.8 Mg Tablet 0.8 Mg PO DAILY Humalog (Insulin Lispro) 100 Unit/1 Ml Insuln.pen 55 Unit SQ DAILYBFRSUP Humalog (Insulin Lispro) 100 Unit/1 Ml Insuln.pen 50 Unit SQ BIDACBL Lantus Solostar (Insulin Glargine,Hum.rec.anlog) 100 Unit/1 Ml Insuln.pen 60-70 Unit SQ BID 60 units breakfast 70 units dinner Warfarin Sodium 5 Mg Tablet 5 Mg PO DAILY Vitals/I & O Vital Sign - Last 24 Hours 08/27/18 08/27/18 08/27/18 08/27/18 15:00 19:00 20:09 22:47 Temp 99.0 99.3 99.5 99.0 99.3 99.5 Pulse 89 79 88 Resp 18 18 18 B/P (MAP) 109/57 (74) 115/61 (79) 101/44 (63) Pulse Ox 95 94 94 O2 Delivery Room Air Room Air Room Air 08/28/18 02:50 Temp 98.5 98.5 Pulse 82 Resp 18 B/P (MAP) 107/44 (65) Pulse Ox 90 O2 Delivery Room Air Intake and Output 08/27/18 08/27/18 08/28/18 14:59 22:59 06:59 Intake Total 50 ml 110 ml Output Total 0 ml Balance 50 ml 110 ml AMADA BRYANT MD August 28, 2018 08:07
--- NOTE | 2018-08-28 08:35 | PDOC ---
SURGICAL PROGRESS NOTE Subjective tolerating diet no pain no nausea Vital Signs Vital Signs Date Time Temp Pulse Resp B/P (MAP) Pulse Ox O2 Delivery O2 Flow Rate FiO2 08/28/18 07:00 99.6 96 18 155/70 (98) 97 Room Air 99.6 08/27/18 07:00 2.0 I&O Intake and Output 08/28/18 07:00 Intake Total 160 ml Output Total 0 ml Balance 160 ml Intake Oral 60 ml IV Total 100 ml Output Urine Total 0 ml General: Alert, Oriented X3, Cooperative, No acute distress Abdomen: Soft, No tenderness Labs Laboratory Tests Test 08/26/18 10:50 08/26/18 11:15 08/26/18 17:02 08/26/18 19:48 Nasal Screen MRSA (PCR) Negative (Negative) Glucose (Fingerstick) 184 mg/dL (70-99) 152 mg/dL (70-99) 214 mg/dL (70-99) Test 08/27/18 07:16 08/27/18 14:55 08/27/18 15:18 08/27/18 20:51 Glucose (Fingerstick) 140 mg/dL (70-99) 347 mg/dL (70-99) 93 mg/dL (70-99) Prothrombin Time 25.9 SEC (11.7-14.0) Prothromb Time International Ratio 2.4 (0.8-1.1) Test 08/28/18 03:40 08/28/18 07:42 Prothrombin Time 22.6 SEC (11.7-14.0) Prothromb Time International Ratio 2.0 (0.8-1.1) Random Vancomycin Level 19.2 mcg/mL Glucose (Fingerstick) 209 mg/dL (70-99) Laboratory Tests Test 08/27/18 14:55 08/27/18 15:18 08/27/18 20:51 08/28/18 03:40 Prothrombin Time 25.9 SEC (11.7-14.0) 22.6 SEC (11.7-14.0) Prothromb Time International Ratio 2.4 (0.8-1.1) 2.0 (0.8-1.1) Glucose (Fingerstick) 347 mg/dL (70-99) 93 mg/dL (70-99) Random Vancomycin Level 19.2 mcg/mL Test 08/28/18 07:42 Glucose (Fingerstick) 209 mg/dL (70-99) Problem List Problems Medical Problems: (1) ESRD (end stage renal disease) Status: Acute Assessment/Plan resolved SBO tolerating diet as per IPC will sign off, available as needed ILYA ULLOA APRN August 28, 2018 08:35
[2018-08-28] MEDS: MULTIVITAMIN with MINERAL TABLET. PO SCH (08:39)
[2018-08-28] MEDS: LACTOBACILLUS RHAMNOSUS GG 1 CAPSULE. PO SCH ×2 (08:39→21:00)
[2018-08-28] MEDS: ASPIRIN CHEWABLE 81 MG TABLET. PO SCH (08:39)
[2018-08-28] MEDS: PANTOPRAZOLE 40 MG TABLET.DR. PO SCH (08:40)
[2018-08-28] MEDS: ASCORBIC ACID 500 MG TABLET PO SCH (08:40)
[2018-08-28] MEDS: FLUCONAZOLE 100 MG TABLET. PO SCH (08:40)
[2018-08-28] MEDS: FOLIC/VIT B COMP W-C (RENAL) TABLET. PO SCH (08:40)
[2018-08-28] MEDS: INSULIN GLARGINE 300 UNITS/3 ML INSULN.PEN. SQ SCH ×2 (08:43→21:05)
[2018-08-28] MEDS: INSULIN LISPRO 300 UNITS/3 ML INSULN.PEN. SQ SCH ×3 (08:45→17:09)
[2018-08-28] MEDS ORDERED: VANCOMYCIN 500 MG in IV NORMAL SALINE 100ML 100 ML IV ONE (09:00)
[2018-08-28 10:22] LABS: BASO % 1 % (0-3); EOS # 0.4 x10^3/uL (0.0-0.7); EOS % 5 % (0-3); HEMATOCRIT 30.3 % (39.0-53.0); HEMOGLOBIN 9.9 g/dL (13.0-17.5); LYMPH # 1.5 x10^3/uL (1.0-4.8); LYMPH % 17 % (24-48); MEAN CORPUSCULAR HEMOGLOBIN 32 pg (25-35); MEAN CORPUSCULAR HGB CONC 33 g/dL (31-37); MEAN CORPUSCULAR VOLUME 99 fL (79-100); MONO # 0.8 x10^3/uL (0.0-1.1); MONO % 9 % (0-9); NEUT % 69 % (31-73); PLATELET COUNT 213 x10^3/uL (140-400); RED BLOOD COUNT 3.08 x10^6/uL (4.30-5.70); RED CELL DISTRIBUTION WIDTH 15.6 % (11.5-14.5); WHITE BLOOD COUNT 8.8 x10^3/uL (4.0-11.0)
[2018-08-28 10:33] LABS: ALBUMIN 2.3 g/dL (3.4-5.0); ALBUMIN/GLOBULIN RATIO 0.4 (1.0-1.7); CALCIUM 8.7 mg/dL (8.5-10.1); CREATININE 9.7 mg/dL (0.7-1.3); GFR 5.5; POTASSIUM 4.4 mmol/L (3.5-5.1); TOTAL BILIRUBIN 0.3 mg/dL (0.2-1.0); TOTAL PROTEIN 7.9 g/dL (6.4-8.2)
--- NOTE | 2018-08-28 10:39 | NUR ---
SW following pt for anticipated dc needs. Chart reviewed. Pt lives at home with spouse and has HD at [facility]. ID, Nephrology following pt. No dc recommendation noted at this time. Will continue to eval needs.
[2018-08-28 11:00] VITALS: BP 121/52
--- NOTE | 2018-08-28 12:00 | NUR ---
Dooly some yelling coming from the back of the shaw, this RN and ISAC Jimenez walk towards the back of the unit and hear Mr. Denny yelling at Dr. Mariee stating "get out of my room, I do not want to see you." Patient yelled it several times. Patients at the bedside. Dr. Mariee was trying to explain something to the patient and the patient was not letting him talk, patient was just yelling at him. Dr. Mariee left the room. This RN and ISAC Jimenez spoke to the patient of what was going on for him to yell at Dr. Mariee. Patient stated he did not like him as a doctor and did not want to see him while he was here again. Patient complained about Dr. Mariee not talking to him on previous occasions in the dialysis center. Spoke to Dr. Mariee afterwards about patient and he stated that if the patient did not want Dr. Mariee caring for him, he would have to transfer to , since patient is a dialysis patient and he needed to be dialyzed on Thursday and Dr. 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 Patient was made aware of the inconvenience. Patient and talked it over and stated patient was okay with Dr. Mariee overseeing his care if he only spoke to his . Dr. Mariee was paged and made aware and stated he would come up and talk to the Dr. Mariee and the spoke and came to an agreement that he would oversee patient care.
--- NOTE | 2018-08-28 13:13 | PDOC ---
Infectious Disease Note Subjective Subjective Feeling pretty good Chronic diarrhea, no more than usual Denies N/V/cramps Denies fevers last 24 hours Denies chills/aches ROS ROS per HPI Vital Sign Vital Signs Vital Signs Date Time Temp Pulse Resp B/P (MAP) Pulse Ox O2 Delivery O2 Flow Rate FiO2 08/28/18 11:00 98.9 86 16 121/52 (75) 94 Room Air 98.9 08/27/18 07:00 2.0 Physical Exam PHYSICAL EXAM GENERAL: Sitting on the side of the bed, alert, joking HEENT: Oral cavity clear, edentulous NECK: Supple LUNGS: Clear. HEART: S1, S2 regular. ABDOMEN: Rather large with pannus, yeast infection between the skin folds and the groin. EXTREMITIES: chronic venous insufficiency and ulcerations, bandaged NEUROLOGICAL: Alert, oriented. left upper arm fistula. SKIN: No rash PIV ok Labs Lab Laboratory Tests Test 08/27/18 14:55 08/27/18 15:18 08/27/18 20:51 08/28/18 03:40 Prothrombin Time 25.9 SEC (11.7-14.0) 22.6 SEC (11.7-14.0) Prothromb Time International Ratio 2.4 (0.8-1.1) 2.0 (0.8-1.1) Glucose (Fingerstick) 347 mg/dL (70-99) 93 mg/dL (70-99) White Blood Count 8.8 x10^3/uL (4.0-11.0) Red Blood Count 3.08 x10^6/uL (4.30-5.70) Hemoglobin 9.9 g/dL (13.0-17.5) Hematocrit 30.3 % (39.0-53.0) Mean Corpuscular Volume 99 fL (79-100) Mean Corpuscular Hemoglobin 32 pg (25-35) Mean Corpuscular Hemoglobin Concent 33 g/dL (31-37) Red Cell Distribution Width 15.6 % (11.5-14.5) Platelet Count 213 x10^3/uL (140-400) Neutrophils (%) (Auto) 69 % (31-73) Lymphocytes (%) (Auto) 17 % (24-48) Monocytes (%) (Auto) 9 % (0-9) Eosinophils (%) (Auto) 5 % (0-3) Basophils (%) (Auto) 1 % (0-3) Neutrophils # (Auto) 6.0 x10^3uL (1.8-7.7) Lymphocytes # (Auto) 1.5 x10^3/uL (1.0-4.8) Monocytes # (Auto) 0.8 x10^3/uL (0.0-1.1) Eosinophils # (Auto) 0.4 x10^3/uL (0.0-0.7) Basophils # (Auto) 0.0 x10^3/uL (0.0-0.2) Sodium Level 137 mmol/L (136-145) Potassium Level 4.4 mmol/L (3.5-5.1) Chloride Level 98 mmol/L (98-107) Carbon Dioxide Level 26 mmol/L (21-32) Anion Gap 13 (6-14) Blood Urea Nitrogen 41 mg/dL (8-26) Creatinine 9.7 mg/dL (0.7-1.3) Estimated GFR (Cockcroft-Gault) 5.5 BUN/Creatinine Ratio 4 (6-20) Glucose Level 167 mg/dL (70-99) Calcium Level 8.7 mg/dL (8.5-10.1) Total Bilirubin 0.3 mg/dL (0.2-1.0) Aspartate Amino Transf (AST/SGOT) 48 U/L (15-37) Alanine Aminotransferase (ALT/SGPT) 46 U/L (16-63) Alkaline Phosphatase 71 U/L (46-116) Total Protein 7.9 g/dL (6.4-8.2) Albumin 2.3 g/dL (3.4-5.0) Albumin/Globulin Ratio 0.4 (1.0-1.7) Random Vancomycin Level 19.2 mcg/mL Test 08/28/18 07:42 08/28/18 11:43 Glucose (Fingerstick) 209 mg/dL (70-99) 82 mg/dL (70-99) Micro Microbiology 08/25/18 Blood Culture - Preliminary, Resulted NO GROWTH AFTER 3 DAYS BLOOD CULTURE Final GRAM POSITIVE COCCI IN CHAINS IN 1 OF 4 BOTTLES (2 SETS Objective Assessment Fever and chills, better Leukocytosis, better BC + with Strep. ID pending Lower ext infected ulcers Obesity Yeast infection in skin folds ESRD on HD Chronic diarrhea Plan Plan of Care vanc and Zosyn, fluconazole Trough 19.2 f/u cultures wound care supportive care d/w Patient seen, examined, I agree with above Assessment and plan by INTERNAL COMBUSTION ENGINE SUBASSEMBLER. D/W and VENU CHAN APRN August 28, 2018 13:13 DOUG PICKETT MD August 28, 2018 13:58
[2018-08-28 15:00] VITALS: BP 142/67
[2018-08-28] MEDS: WARFARIN 5 MG TABLET. PO SCH (15:57)
[2018-08-28 19:00] VITALS: BP 148/69
[2018-08-28 23:00] VITALS: BP 129/65
[2018-08-29 03:00] VITALS: BP 140/61
[2018-08-29] MEDS: PIPERACILLIN/TAZOBACTAM 2.25 GM in IV NORMAL SALINE 50ML 50 ML IV SCH ×3 (06:22→21:52)
[2018-08-29] MEDS: PANTOPRAZOLE 40 MG TABLET.DR. PO SCH (06:32)
[2018-08-29 07:00] VITALS: BP 148/63
[2018-08-29] MEDS: LACTOBACILLUS RHAMNOSUS GG 1 CAPSULE. PO SCH ×2 (08:19→21:53)
[2018-08-29] MEDS: MULTIVITAMIN with MINERAL TABLET. PO SCH (08:19)
[2018-08-29] MEDS: FOLIC/VIT B COMP W-C (RENAL) TABLET. PO SCH (08:19)
[2018-08-29] MEDS: FLUCONAZOLE 100 MG TABLET. PO SCH (08:19)
[2018-08-29] MEDS: ASCORBIC ACID 500 MG TABLET PO SCH (08:19)
[2018-08-29] MEDS: ASPIRIN CHEWABLE 81 MG TABLET. PO SCH (08:19)
[2018-08-29] MEDS: INSULIN LISPRO 300 UNITS/3 ML INSULN.PEN. SQ SCH ×3 (08:27→16:53)
[2018-08-29] MEDS: INSULIN GLARGINE 300 UNITS/3 ML INSULN.PEN. SQ SCH ×2 (08:28→21:58)
[2018-08-29] MEDS: VANCOMYCIN PER PHARMACY MC PRN (08:52)
--- NOTE | 2018-08-29 10:21 | PDOC ---
PROGRESS NOTES Chief Complaint Chief Complaint Fever and chills Leukocytosis BC + with Strep Lower ext infected ulcers Obesity Yeast infection in skin folds ESRD on HD Chronic diarrhea ANEMIA SEC ckd History of Present Illness History of Present Illness Patient seen and examined Subspecialist notes reviewed Discussed with RN Patient is currently on dialysis CONT IV vanc and zosyn ESRD and ventral hernia, partial SBO resolving , patient poor surgical risk for hernia repair, angry at DR BOTELLO YESTERDAY, YELLING, AGITATED Vitals Vitals Vital Signs Date Time Temp Pulse Resp B/P (MAP) Pulse Ox O2 Delivery O2 Flow Rate FiO2 08/29/18 07:55 Room Air 08/29/18 07:00 98.4 88 16 148/63 (91) 92 98.4 Physical Exam Physical Exam GENERAL: Sitting IN CHAIR alert, joking HEENT: Oral cavity clear, edentulous NECK: Supple LUNGS: Clear. HEART: S1, S2 regular. ABDOMEN: Rather large with pannus, yeast infection between the skin folds and the groin. EXTREMITIES: chronic venous insufficiency and ulcerations, bandaged NEUROLOGICAL: Alert, oriented. left upper arm fistula. SKIN: No rash PIV ok General: Alert, Oriented X3, Cooperative, No acute distress, mild distress Heart: Regular rate, Normal S1, Normal S2 Lungs: Clear, Crackles Abdomen: Soft, No tenderness Extremities: No clubbing, No cyanosis, Other (muscular atrophy with ulcerations of lower anterior legs) Skin: No rashes, No breakdown Labs LABS PATIENT: ELENITA SHEPHERD ACCT: [id number] LOC: 6 [facility] U: [id number] AGE/SX: 63/M ROOM: 650 REG : 08/25/[address]: DAMIAN DURAN III DO : 1955 BED: 1 DIS: STATUS: ADM IN TLOC: SPEC #: [id number] NEVAEH: 08/25/18 STATUS: KALE REQ #: [id number] RECD: 08/25/[address] [facility] [address]: JASWINDER RAPP MD SOURCE: BLOOD ENTR: 08/25/18-[address] [facility] [address]: CHUCKY MENA MD [facility]: ORDERED: BCULT Procedure Result BLOOD CULTURE Final GRAM POSITIVE COCCI IN CHAINS IN 1 OF 4 BOTTLES (2 SETS COLLECTED). CALLED TO MARQUEZ SUNG ON 608/26/18 AT 0805 BY Inga VALDEZ. CULTURE HAS BEEN SENT TO [facility] FOR FURTHER IDENTIFICATION. Laboratory Tests Test 08/28/18 11:43 08/28/18 17:00 08/28/18 20:47 08/29/18 06:23 Glucose (Fingerstick) 82 mg/dL (70-99) 119 mg/dL (70-99) 72 mg/dL (70-99) 104 mg/dL (70-99) Assessment and Plan Assessmemt and Plan Problems Medical Problems: (1) ESRD (end stage renal disease) Status: Acute Comment Review of Relevant I have reviewed the following items joyce (where applicable) has been applied. Labs Laboratory Tests Test 08/27/18 14:55 08/27/18 15:18 08/27/18 20:51 08/28/18 03:40 Prothrombin Time 25.9 SEC (11.7-14.0) 22.6 SEC (11.7-14.0) Prothromb Time International Ratio 2.4 (0.8-1.1) 2.0 (0.8-1.1) Glucose (Fingerstick) 347 mg/dL (70-99) 93 mg/dL (70-99) White Blood Count 8.8 x10^3/uL (4.0-11.0) Red Blood Count 3.08 x10^6/uL (4.30-5.70) Hemoglobin 9.9 g/dL (13.0-17.5) Hematocrit 30.3 % (39.0-53.0) Mean Corpuscular Volume 99 fL (79-100) Mean Corpuscular Hemoglobin 32 pg (25-35) Mean Corpuscular Hemoglobin Concent 33 g/dL (31-37) Red Cell Distribution Width 15.6 % (11.5-14.5) Platelet Count 213 x10^3/uL (140-400) Neutrophils (%) (Auto) 69 % (31-73) Lymphocytes (%) (Auto) 17 % (24-48) Monocytes (%) (Auto) 9 % (0-9) Eosinophils (%) (Auto) 5 % (0-3) Basophils (%) (Auto) 1 % (0-3) Neutrophils # (Auto) 6.0 x10^3uL (1.8-7.7) Lymphocytes # (Auto) 1.5 x10^3/uL (1.0-4.8) Monocytes # (Auto) 0.8 x10^3/uL (0.0-1.1) Eosinophils # (Auto) 0.4 x10^3/uL (0.0-0.7) Basophils # (Auto) 0.0 x10^3/uL (0.0-0.2) Sodium Level 137 mmol/L (136-145) Potassium Level 4.4 mmol/L (3.5-5.1) Chloride Level 98 mmol/L (98-107) Carbon Dioxide Level 26 mmol/L (21-32) Anion Gap 13 (6-14) Blood Urea Nitrogen 41 mg/dL (8-26) Creatinine 9.7 mg/dL (0.7-1.3) Estimated GFR (Cockcroft-Gault) 5.5 BUN/Creatinine Ratio 4 (6-20) Glucose Level 167 mg/dL (70-99) Calcium Level 8.7 mg/dL (8.5-10.1) Total Bilirubin 0.3 mg/dL (0.2-1.0) Aspartate Amino Transf (AST/SGOT) 48 U/L (15-37) Alanine Aminotransferase (ALT/SGPT) 46 U/L (16-63) Alkaline Phosphatase 71 U/L (46-116) Total Protein 7.9 g/dL (6.4-8.2) Albumin 2.3 g/dL (3.4-5.0) Albumin/Globulin Ratio 0.4 (1.0-1.7) Random Vancomycin Level 19.2 mcg/mL Test 08/28/18 07:42 08/28/18 11:43 08/28/18 17:00 08/28/18 20:47 Glucose (Fingerstick) 209 mg/dL (70-99) 82 mg/dL (70-99) 119 mg/dL (70-99) 72 mg/dL (70-99) Test 08/29/18 06:23 Glucose (Fingerstick) 104 mg/dL (70-99) Laboratory Tests Test 08/28/18 11:43 08/28/18 17:00 08/28/18 20:47 08/29/18 06:23 Glucose (Fingerstick) 82 mg/dL (70-99) 119 mg/dL (70-99) 72 mg/dL (70-99) 104 mg/dL (70-99) Microbiology 08/25/18 Blood Culture - Preliminary, Resulted NO GROWTH AFTER 3 DAYS Medications Current Medications Sodium Chloride 250 ml @ 250 mls/hr 1X ONCE IV Last administered on 08/25/18at 11:18; Start 08/25/18 at 11:00; Stop 08/25/18 at 11:59; Status DC Acetaminophen (Tylenol) 1,000 mg 1X ONCE PO Last administered on 08/25/18at 11:00; Start 08/25/18 at 11:00; Stop 08/25/18 at 11:01; Status DC Ondansetron HCl (Zofran) 4 mg 1X ONCE IV Last administered on 08/25/18at 11:18; Start 08/25/18 at 11:15; Stop 08/25/18 at 11:16; Status DC Ondansetron HCl (Zofran) 4 mg STK-MED ONCE .ROUTE ; Start 08/25/18 at 11:15; Stop 08/25/18 at 11:16; Status DC Ceftriaxone Sodium (Rocephin) 1 gm 1X ONCE IVP ; Start 08/25/18 at 11:30; Stop 08/25/18 at 11:36; Status DC Vancomycin HCl 250 ml @ 250 mls/hr 1X ONCE IV Last administered on 08/25/18at 11:30; Start 08/25/18 at 11:30; Stop 08/25/18 at 12:29; Status DC Piperacillin Sod/ Tazobactam Sod (Zosyn Per Pharmacy) 1 each PRN DAILY PRN MC SEE COMMENTS; Start 08/25/18 at 11:45 Sodium Chloride 1,000 ml @ 1,000 mls/hr 1X ONCE IV Last administered on 08/25/18at 11:45; Start 08/25/18 at 11:45; Stop 08/25/18 at 12:44; Status DC Piperacillin Sod/ Tazobactam Sod 2.25 gm/Sodium Chloride 50 ml @ 100 mls/hr 1X ONCE IV Last administered on 08/25/18at 11:45; Start 08/25/18 at 11:45; Stop 08/25/18 at 12:14; Status DC Sodium Chloride 1,000 ml @ 100 mls/hr Q10H IV Last administered on 08/25/18at 20:21; Start 08/25/18 at 13:15; Stop 08/26/18 at 11:23; Status DC Piperacillin Sod/ Tazobactam Sod 2.25 gm/Sodium Chloride 50 ml @ 100 mls/hr Q8HRS IV Last administered on 08/29/18 06:22; Start 08/25/18 at 22:00 Famotidine (Pepcid Vial) 20 mg DAILY IVP Last administered on 08/26/18 08:53; Start 08/25/18 at 15:30; Stop 08/26/18 at 12:21; Status DC Acetaminophen (Tylenol) 650 mg PRN Q6HRS PRN PO FEVER Last administered on 08/26/18at 08:33; Start 08/26/18 at 00:30 Acetaminophen (Tylenol Supp) 650 mg PRN Q6HRS PRN MN FEVER; Start 08/26/18 at 00:30 Vancomycin HCl (Vanco Per Pharmacy) 1 each PRN DAILY PRN MC SEE COMMENTS Last administered on 08/29/18at 08:52; Start 08/26/18 at 11:00 Fluconazole (Diflucan) 200 mg DAILY PO Last administered on 08/29/18 08:19; Start 08/26/18 at 12:00 Ascorbic Acid (Vitamin C) 500 mg DAILY PO Last administered on 08/29/18 08:19; Start 08/26/18 at 13:00 Multivitamins (Thera M Plus) 1 tab DAILY PO Last administered on 08/29/18 08:19; Start 08/26/18 at 13:00 Pantoprazole Sodium (Protonix) 40 mg DAILYAC PO Last administered on 08/29/18 06:32; Start 08/26/18 at 13:00 Vancomycin HCl 1 gm/Sodium Chloride 250 ml @ 250 mls/hr 1X ONCE IV Last administered on 08/26/18at 15:53; Start 08/26/18 at 15:00; Stop 08/26/18 at 15:59; Status DC Vancomycin HCl 500 mg/Sodium Chloride 100 ml @ 100 mls/hr QMWF IV Last administered on 08/27/18at 16:35; Start 08/27/18 at 16:00 Vancomycin HCl (Vancomycin Random Level) 1 each 1X ONCE MC Last administered on 08/28/18at 06:00; Start 08/28/18 at 06:00; Stop 08/28/18 at 06:01; Status DC Lactobacillus Rhamnosus (Culturelle) 1 cap BID PO Last administered on 08/29/18 08:19; Start 08/26/18 at 21:00 Aspirin (Children'S Aspirin) 81 mg DAILYWBKFT PO Last administered on 08/29/18at 08:19; Start 08/27/18 at 08:00 Vitamin B Complex/ Vitamin C (Cassie-Nyla) 1 tab DAILY PO Last administered on 08/29/18 08:19; Start 08/27/18 at 09:00 Insulin Glargine (Lantus) 60 units BID SQ Last administered on 08/29/18at 08:28; Start 08/27/18 at 09:00 Insulin Human Lispro (HumaLOG) 50 units BIDACBL SQ Last administered on 08/29/18at 08:27; Start 08/27/18 at 07:30 Insulin Human Lispro (HumaLOG) 55 units DAILYBFRSUP SQ Last administered on 08/28/18at 17:09; Start 08/27/18 at 17:00 Acetaminophen (Tylenol) 500 mg PRN BID PRN PO PAIN; Start 08/27/18 at 01:45 Warfarin Sodium (Coumadin) 5 mg DAILY16 PO Last administered on 08/28/18at 15:57; Start 08/27/18 at 16:00 Warfarin Sodium (Coumadin Per Physician) 1 each PRN DAILY PRN MC SEE COMMENTS Last administered on 08/29/18at 08:49; Start 08/27/18 at 16:00 Sodium Chloride 1,000 ml @ 1,000 mls/hr Q1H PRN IV hypotension; Start 08/27/18 at 09:07; Stop 08/27/18 at 15:06; Status DC Diphenhydramine HCl (Benadryl) 25 mg 1X PRN PRN IV ITCHING; Start 08/27/18 at 09:15; Stop 08/28/18 at 09:14; Status DC Diphenhydramine HCl (Benadryl) 25 mg 1X PRN PRN IV ITCHING; Start 08/27/18 at 09:15; Stop 08/28/18 at 09:14; Status DC Sodium Chloride 1,000 ml @ 400 mls/hr Q2H30M PRN IV PATENCY; Start 08/27/18 at 09:07; Stop 08/27/18 at 21:06; Status DC Info (PHARMACY MONITORING -- do not chart) 1 each PRN DAILY PRN MC SEE COMMENTS; Start 08/27/18 at 09:15 Vancomycin HCl 500 mg/Sodium Chloride 100 ml @ 100 mls/hr 1X ONCE IV Last administered on 08/28/18at 08:41; Start 08/28/18 at 09:00; Stop 08/28/18 at 09:59; Status DC Active Scripts Active Zofran Odt (Ondansetron) 4 Mg Tab.rapdis 4 Mg PO BID PRN Tamiflu (Oseltamivir Phosphate) 75 Mg Capsule 1 Cap PO BID Reported Aspirin 81 Mg Tab.chew 1 Tab PO DAILY Acetaminophen 500 Mg Tablet 1 Tab PO BID PRN Renal Vitamin Tablet (Folic Acid/Vit Bcomp,C) 0.8 Mg Tablet 0.8 Mg PO DAILY Humalog (Insulin Lispro) 100 Unit/1 Ml Insuln.pen 55 Unit SQ DAILYBFRSUP Humalog (Insulin Lispro) 100 Unit/1 Ml Insuln.pen 50 Unit SQ BIDACBL Lantus Solostar (Insulin Glargine,Hum.rec.anlog) 100 Unit/1 Ml Insuln.pen 60-70 Unit SQ BID 60 units breakfast 70 units dinner Warfarin Sodium 5 Mg Tablet 5 Mg PO DAILY Vitals/I & O Vital Sign - Last 24 Hours 08/28/18 08/28/18 08/28/18 08/28/18 11:00 15:00 19:00 20:00 Temp 98.9 99.5 99.2 98.9 99.5 99.2 Pulse 86 89 87 Resp 18 B/P (MAP) 121/52 (75) 142/67 (92) 148/69 (95) Pulse Ox 94 93 92 O2 Delivery Room Air Room Air Room Air Room Air 08/28/18 08/29/18 08/29/18 08/29/18 23:00 03:00 07:00 07:55 Temp 98.7 98.7 98.4 98.7 98.7 98.4 Pulse 81 83 88 Resp 16 18 16 B/P (MAP) 129/65 (86) 140/61 (87) 148/63 (91) Pulse Ox 95 92 92 O2 Delivery Room Air Room Air Room Air Room Air Intake and Output 08/28/18 08/28/18 08/29/18 15:00 23:00 07:00 Intake Total 650 ml 1450 ml 200 ml Output Total 300 ml Balance 650 ml 1150 ml 200 ml AMADA BRYANT MD August 29, 2018 10:21
[2018-08-29 11:00] VITALS: BP 126/64
--- NOTE | 2018-08-29 12:14 | PDOC ---
Renal-Progress Notes Subjective Notes Notes NONE History of Present Illness Hx of present illness STABLE Vitals Vitals Vital Signs Date Time Temp Pulse Resp B/P (MAP) Pulse Ox O2 Delivery O2 Flow Rate FiO2 08/29/18 11:00 98.6 81 14 126/64 (84) 95 Room Air 98.6 Weight Weight [ ] I.O. Intake and Output Intake and Output 08/29/18 07:00 Intake Total 2300 ml Output Total 300 ml Balance 2000 ml Intake Oral 2300 ml Output Urine Total 300 ml # Voids 1 Labs Labs Laboratory Tests Test 08/28/18 17:00 08/28/18 20:47 08/29/18 06:23 08/29/18 11:32 Glucose (Fingerstick) 119 mg/dL (70-99) 72 mg/dL (70-99) 104 mg/dL (70-99) 149 mg/dL (70-99) Micro Micro Microbiology 08/25/18 Blood Culture - Preliminary, Resulted NO GROWTH AFTER 4 DAYS Review of Systems Constitutional: yes: other (NONE, REFUSES TO SPEAK TO ME) Physical Exam General Appearance: other (WONT ALLOW ME TO EXAM HIM) Assessment Assessment IMP ESRD SEPSIS LEUCOCYTOSIS ANEMIA DIARRHEA PLAN HD MWF ANTIBIOTICS GALEN BOTELLO MD August 29, 2018 12:14
--- NOTE | 2018-08-29 14:01 | PDOC ---
Infectious Disease Note Subjective Subjective Wants to go home Feels fine No fevers ROS ROS per HPI Vital Sign Vital Signs Vital Signs Date Time Temp Pulse Resp B/P (MAP) Pulse Ox O2 Delivery O2 Flow Rate FiO2 08/29/18 11:00 98.6 81 14 126/64 (84) 95 Room Air 98.6 Physical Exam PHYSICAL EXAM GENERAL: Propped up in bed, alert, NAD HEENT: Oral cavity clear NECK: Supple LUNGS: Clear. HEART: S1, S2 regular. ABDOMEN: Rather large with pannus, yeast infection between the skin folds and the groin. EXTREMITIES: chronic venous insufficiency and ulcerations, bandaged NEUROLOGICAL: Alert, oriented. left upper arm fistula. SKIN: No rash PIV ok Labs Lab Laboratory Tests Test 08/28/18 17:00 08/28/18 20:47 08/29/18 06:23 08/29/18 11:32 Glucose (Fingerstick) 119 mg/dL (70-99) 72 mg/dL (70-99) 104 mg/dL (70-99) 149 mg/dL (70-99) Micro 08/25. BLD CULT RESULT 1 Preliminary Streptococcus species Objective Assessment Fever and chills, better Leukocytosis, better BC + with Strep. ID pending Lower ext infected ulcers Obesity Yeast infection in skin folds ESRD on HD Chronic diarrhea Plan Plan of Care vanc and Zosyn, fluconazole Trough 19.2 f/u cultures wound care supportive care d/w Pt seen and examined Labs and micro data reviewed Agree with above A/P per VENU ROWLAND APRN August 29, 2018 14:01 DOUG PICKETT MD August 29, 2018 16:32
[2018-08-29 15:00] VITALS: BP 155/71
[2018-08-29] MEDS: WARFARIN 5 MG TABLET. PO SCH (16:47)
[2018-08-29 19:00] VITALS: BP 154/74
[2018-08-29 23:00] VITALS: BP 149/65
[2018-08-30 03:00] VITALS: BP 134/43
[2018-08-30] MEDS: PIPERACILLIN/TAZOBACTAM 2.25 GM in IV NORMAL SALINE 50ML 50 ML IV SCH ×3 (05:01→13:58)
[2018-08-30 05:04] LABS: BASO # 0.1 x10^3/uL (0.0-0.2); BASO % 1 % (0-3); EOS # 0.4 x10^3/uL (0.0-0.7); EOS % 3 % (0-3); HEMATOCRIT 31.3 % (39.0-53.0); HEMOGLOBIN 10.3 g/dL (13.0-17.5); LYMPH # 1.9 x10^3/uL (1.0-4.8); LYMPH % 14 % (24-48); MEAN CORPUSCULAR HEMOGLOBIN 32 pg (25-35); MEAN CORPUSCULAR HGB CONC 33 g/dL (31-37); MEAN CORPUSCULAR VOLUME 97 fL (79-100); MONO # 0.6 x10^3/uL (0.0-1.1); MONO % 5 % (0-9); NEUT # 10.7 x10^3uL (1.8-7.7); NEUT % 78 % (31-73); PLATELET COUNT 278 x10^3/uL (140-400); RED BLOOD COUNT 3.24 x10^6/uL (4.30-5.70); RED CELL DISTRIBUTION WIDTH 15.6 % (11.5-14.5); WHITE BLOOD COUNT 13.7 x10^3/uL (4.0-11.0)
[2018-08-30 05:37] LABS: ALBUMIN 2.3 g/dL (3.4-5.0); ALBUMIN/GLOBULIN RATIO 0.4 (1.0-1.7); CALCIUM 8.9 mg/dL (8.5-10.1); CREATININE 13.5 mg/dL (0.7-1.3); GFR 3.7; POTASSIUM 5.3 mmol/L (3.5-5.1); TOTAL BILIRUBIN 0.5 mg/dL (0.2-1.0)
[2018-08-30 07:00] VITALS: BP 155/84
[2018-08-30] MEDS ORDERED: IV NORMAL SALINE 1000ML BAG 1,000 ML IV PRN ×2 (07:10)
[2018-08-30] MEDS ORDERED: ALBUMIN HUMAN 25% 200 ML IV PRN (07:15)
[2018-08-30] MEDS ORDERED: DIALYSIS PATIENT. MC PRN ×2 (07:15)
[2018-08-30] MEDS ORDERED: diphenhydrAMINE 50 MG/ML VIAL IV PRN ×2 (07:15)
[2018-08-30] MEDS: PANTOPRAZOLE 40 MG TABLET.DR. PO SCH (07:35)
[2018-08-30] MEDS: INSULIN LISPRO 300 UNITS/3 ML INSULN.PEN. SQ SCH ×2 (08:04→13:01)
[2018-08-30] MEDS: INSULIN GLARGINE 300 UNITS/3 ML INSULN.PEN. SQ SCH (08:05)
--- NOTE | 2018-08-30 08:07 | NUR ---
PATIENT TO DIALYSIS PER BED, REPORT TO JOSÉ MIGUEL CHAU. PATIENT WANTS ALL MEDICATIONS EXCEPT INSULIN AFTER DIALYSIS. SEE EMAR. PATIENT AT BEDSIDE THIS MORNING, THEY BOTH VERB. UNDERSTANDING POC: MEDICATIONS AND ANTIBIOTICS IV AFTER DIALYSIS.
--- NOTE | 2018-08-30 10:16 | PDOC ---
PROGRESS NOTES Chief Complaint Chief Complaint Fever and chills Leukocytosis BC + with Strep Lower ext infected ulcers Obesity Yeast infection in skin folds ESRD on HD Chronic diarrhea ANEMIA SEC ckd c/o ankle pain History of Present Illness History of Present Illness Patient seen and examined Subspecialist notes reviewed Discussed with RN Patient is currently on dialysis CONT IV vanc and zosyn ESRD and ventral hernia, partial SBO resolving , patient poor surgical risk for hernia repair, angry at DR BOTELLO 08/27, WAS , AGITATED Vitals Vitals Vital Signs Date Time Temp Pulse Resp B/P (MAP) Pulse Ox O2 Delivery O2 Flow Rate FiO2 08/30/18 07:00 98.8 88 14 155/84 (107) 90 Room Air 98.8 Physical Exam Physical Exam GENERAL: Propped up in bed, alert, NAD HEENT: Oral cavity clear NECK: Supple LUNGS: Clear. HEART: S1, S2 regular. ABDOMEN: Rather large with pannus, yeast infection between the skin folds and the groin. EXTREMITIES: chronic venous insufficiency and ulcerations, bandaged NEUROLOGICAL: Alert, oriented. left upper arm fistula. SKIN: No rash PIV ok General: Alert, Oriented X3, Cooperative, No acute distress, mild distress Heart: Regular rate, Normal S1, Normal S2 Lungs: Clear, Crackles Abdomen: Normal bowel sounds, Soft, No tenderness Extremities: No clubbing, No cyanosis, Other (muscular atrophy with ulcerations of lower anterior legs) Skin: No rashes, No breakdown Labs LABS Laboratory Tests Test 08/29/18 11:32 08/29/18 16:37 08/29/18 20:46 08/30/18 04:50 Glucose (Fingerstick) 149 mg/dL (70-99) 138 mg/dL (70-99) 81 mg/dL (70-99) White Blood Count 13.7 x10^3/uL (4.0-11.0) Red Blood Count 3.24 x10^6/uL (4.30-5.70) Hemoglobin 10.3 g/dL (13.0-17.5) Hematocrit 31.3 % (39.0-53.0) Mean Corpuscular Volume 97 fL (79-100) Mean Corpuscular Hemoglobin 32 pg (25-35) Mean Corpuscular Hemoglobin Concent 33 g/dL (31-37) Red Cell Distribution Width 15.6 % (11.5-14.5) Platelet Count 278 x10^3/uL (140-400) Neutrophils (%) (Auto) 78 % (31-73) Lymphocytes (%) (Auto) 14 % (24-48) Monocytes (%) (Auto) 5 % (0-9) Eosinophils (%) (Auto) 3 % (0-3) Basophils (%) (Auto) 1 % (0-3) Neutrophils # (Auto) 10.7 x10^3uL (1.8-7.7) Lymphocytes # (Auto) 1.9 x10^3/uL (1.0-4.8) Monocytes # (Auto) 0.6 x10^3/uL (0.0-1.1) Eosinophils # (Auto) 0.4 x10^3/uL (0.0-0.7) Basophils # (Auto) 0.1 x10^3/uL (0.0-0.2) Prothrombin Time 28.0 SEC (11.7-14.0) Prothromb Time International Ratio 2.6 (0.8-1.1) Sodium Level 136 mmol/L (136-145) Potassium Level 5.3 mmol/L (3.5-5.1) Chloride Level 100 mmol/L (98-107) Carbon Dioxide Level 19 mmol/L (21-32) Anion Gap 17 (6-14) Blood Urea Nitrogen 68 mg/dL (8-26) Creatinine 13.5 mg/dL (0.7-1.3) Estimated GFR (Cockcroft-Gault) 3.7 BUN/Creatinine Ratio 5 (6-20) Glucose Level 136 mg/dL (70-99) Calcium Level 8.9 mg/dL (8.5-10.1) Total Bilirubin 0.5 mg/dL (0.2-1.0) Aspartate Amino Transf (AST/SGOT) 44 U/L (15-37) Alanine Aminotransferase (ALT/SGPT) 59 U/L (16-63) Alkaline Phosphatase 76 U/L (46-116) Total Protein 8.0 g/dL (6.4-8.2) Albumin 2.3 g/dL (3.4-5.0) Albumin/Globulin Ratio 0.4 (1.0-1.7) Test 08/30/18 07:57 Glucose (Fingerstick) 239 mg/dL (70-99) Assessment and Plan Assessmemt and Plan Problems Medical Problems: (1) ESRD (end stage renal disease) Status: Acute DATE OF SURGERY: 06/07/2014 PREOPERATIVE DIAGNOSIS: Right colon cancer. POSTOPERATIVE DIAGNOSIS: Right colon cancer. PROCEDURE: Exploratory laparotomy with extended right hemicolectomy and primary anastomosis. SURGEON: Delvis Vitale. INDICATIONS: The patient is a 58-year-old gentleman, who was admitted to the hospital with anemia of unknown origin, underwent colonoscopy and was found to have a focal lesion within the right colon about mid ascending. Procedure of exploratory laparotomy with right hemicolectomy was explained to the patient in detail. Risks and benefits were also discussed including bleeding, infection, and alternatives of this procedure also discussed with patient, who seemed to understand and gave verbal and written consent to have the procedure performed. The patient was taken to the operating room and placed in supine position. General anesthesia was initiated. Once the patient was asleep and intubated. His abdomen was prepped and draped usual fashion using ChloraPrep. A midline incision was made from just below the umbilicus to just above the umbilicus. This was carried down through subcutaneous tissues. Electrocautery was used for hemostasis down to the fascia. Fascia was opened with electrocautery. The peritoneum was opened with Metzenbaum scissors. Once the abdomen was entered, Comment Review of Relevant I have reviewed the following items joyce (where applicable) has been applied. Labs Laboratory Tests Test 08/28/18 11:43 08/28/18 17:00 08/28/18 20:47 08/29/18 06:23 Glucose (Fingerstick) 82 mg/dL (70-99) 119 mg/dL (70-99) 72 mg/dL (70-99) 104 mg/dL (70-99) Test 08/29/18 11:32 08/29/18 16:37 08/29/18 20:46 08/30/18 04:50 Glucose (Fingerstick) 149 mg/dL (70-99) 138 mg/dL (70-99) 81 mg/dL (70-99) White Blood Count 13.7 x10^3/uL (4.0-11.0) Red Blood Count 3.24 x10^6/uL (4.30-5.70) Hemoglobin 10.3 g/dL (13.0-17.5) Hematocrit 31.3 % (39.0-53.0) Mean Corpuscular Volume 97 fL (79-100) Mean Corpuscular Hemoglobin 32 pg (25-35) Mean Corpuscular Hemoglobin Concent 33 g/dL (31-37) Red Cell Distribution Width 15.6 % (11.5-14.5) Platelet Count 278 x10^3/uL (140-400) Neutrophils (%) (Auto) 78 % (31-73) Lymphocytes (%) (Auto) 14 % (24-48) Monocytes (%) (Auto) 5 % (0-9) Eosinophils (%) (Auto) 3 % (0-3) Basophils (%) (Auto) 1 % (0-3) Neutrophils # (Auto) 10.7 x10^3uL (1.8-7.7) Lymphocytes # (Auto) 1.9 x10^3/uL (1.0-4.8) Monocytes # (Auto) 0.6 x10^3/uL (0.0-1.1) Eosinophils # (Auto) 0.4 x10^3/uL (0.0-0.7) Basophils # (Auto) 0.1 x10^3/uL (0.0-0.2) Prothrombin Time 28.0 SEC (11.7-14.0) Prothromb Time International Ratio 2.6 (0.8-1.1) Sodium Level 136 mmol/L (136-145) Potassium Level 5.3 mmol/L (3.5-5.1) Chloride Level 100 mmol/L (98-107) Carbon Dioxide Level 19 mmol/L (21-32) Anion Gap 17 (6-14) Blood Urea Nitrogen 68 mg/dL (8-26) Creatinine 13.5 mg/dL (0.7-1.3) Estimated GFR (Cockcroft-Gault) 3.7 BUN/Creatinine Ratio 5 (6-20) Glucose Level 136 mg/dL (70-99) Calcium Level 8.9 mg/dL (8.5-10.1) Total Bilirubin 0.5 mg/dL (0.2-1.0) Aspartate Amino Transf (AST/SGOT) 44 U/L (15-37) Alanine Aminotransferase (ALT/SGPT) 59 U/L (16-63) Alkaline Phosphatase 76 U/L (46-116) Total Protein 8.0 g/dL (6.4-8.2) Albumin 2.3 g/dL (3.4-5.0) Albumin/Globulin Ratio 0.4 (1.0-1.7) Test 08/30/18 07:57 Glucose (Fingerstick) 239 mg/dL (70-99) Laboratory Tests Test 08/29/18 11:32 08/29/18 16:37 08/29/18 20:46 08/30/18 04:50 Glucose (Fingerstick) 149 mg/dL (70-99) 138 mg/dL (70-99) 81 mg/dL (70-99) White Blood Count 13.7 x10^3/uL (4.0-11.0) Red Blood Count 3.24 x10^6/uL (4.30-5.70) Hemoglobin 10.3 g/dL (13.0-17.5) Hematocrit 31.3 % (39.0-53.0) Mean Corpuscular Volume 97 fL (79-100) Mean Corpuscular Hemoglobin 32 pg (25-35) Mean Corpuscular Hemoglobin Concent 33 g/dL (31-37) Red Cell Distribution Width 15.6 % (11.5-14.5) Platelet Count 278 x10^3/uL (140-400) Neutrophils (%) (Auto) 78 % (31-73) Lymphocytes (%) (Auto) 14 % (24-48) Monocytes (%) (Auto) 5 % (0-9) Eosinophils (%) (Auto) 3 % (0-3) Basophils (%) (Auto) 1 % (0-3) Neutrophils # (Auto) 10.7 x10^3uL (1.8-7.7) Lymphocytes # (Auto) 1.9 x10^3/uL (1.0-4.8) Monocytes # (Auto) 0.6 x10^3/uL (0.0-1.1) Eosinophils # (Auto) 0.4 x10^3/uL (0.0-0.7) Basophils # (Auto) 0.1 x10^3/uL (0.0-0.2) Prothrombin Time 28.0 SEC (11.7-14.0) Prothromb Time International Ratio 2.6 (0.8-1.1) Sodium Level 136 mmol/L (136-145) Potassium Level 5.3 mmol/L (3.5-5.1) Chloride Level 100 mmol/L (98-107) Carbon Dioxide Level 19 mmol/L (21-32) Anion Gap 17 (6-14) Blood Urea Nitrogen 68 mg/dL (8-26) Creatinine 13.5 mg/dL (0.7-1.3) Estimated GFR (Cockcroft-Gault) 3.7 BUN/Creatinine Ratio 5 (6-20) Glucose Level 136 mg/dL (70-99) Calcium Level 8.9 mg/dL (8.5-10.1) Total Bilirubin 0.5 mg/dL (0.2-1.0) Aspartate Amino Transf (AST/SGOT) 44 U/L (15-37) Alanine Aminotransferase (ALT/SGPT) 59 U/L (16-63) Alkaline Phosphatase 76 U/L (46-116) Total Protein 8.0 g/dL (6.4-8.2) Albumin 2.3 g/dL (3.4-5.0) Albumin/Globulin Ratio 0.4 (1.0-1.7) Test 08/30/18 07:57 Glucose (Fingerstick) 239 mg/dL (70-99) Microbiology 08/25/18 Blood Culture - Preliminary, Resulted NO GROWTH AFTER 4 DAYS Medications Current Medications Sodium Chloride 250 ml @ 250 mls/hr 1X ONCE IV Last administered on 08/25/18at 11:18; Start 08/25/18 at 11:00; Stop 08/25/18 at 11:59; Status DC Acetaminophen (Tylenol) 1,000 mg 1X ONCE PO Last administered on 08/25/18at 11:00; Start 08/25/18 at 11:00; Stop 08/25/18 at 11:01; Status DC Ondansetron HCl (Zofran) 4 mg 1X ONCE IV Last administered on 08/25/18at 11:18; Start 08/25/18 at 11:15; Stop 08/25/18 at 11:16; Status DC Ondansetron HCl (Zofran) 4 mg STK-MED ONCE .ROUTE ; Start 08/25/18 at 11:15; Stop 08/25/18 at 11:16; Status DC Ceftriaxone Sodium (Rocephin) 1 gm 1X ONCE IVP ; Start 08/25/18 at 11:30; Stop 08/25/18 at 11:36; Status DC Vancomycin HCl 250 ml @ 250 mls/hr 1X ONCE IV Last administered on 08/25/18at 11:30; Start 08/25/18 at 11:30; Stop 08/25/18 at 12:29; Status DC Piperacillin Sod/ Tazobactam Sod (Zosyn Per Pharmacy) 1 each PRN DAILY PRN MC SEE COMMENTS; Start 08/25/18 at 11:45 Sodium Chloride 1,000 ml @ 1,000 mls/hr 1X ONCE IV Last administered on 08/25/18at 11:45; Start 08/25/18 at 11:45; Stop 08/25/18 at 12:44; Status DC Piperacillin Sod/ Tazobactam Sod 2.25 gm/Sodium Chloride 50 ml @ 100 mls/hr 1X ONCE IV Last administered on 08/25/18at 11:45; Start 08/25/18 at 11:45; Stop 08/25/18 at 12:14; Status DC Sodium Chloride 1,000 ml @ 100 mls/hr Q10H IV Last administered on 08/25/18at 20:21; Start 08/25/18 at 13:15; Stop 08/26/18 at 11:23; Status DC Piperacillin Sod/ Tazobactam Sod 2.25 gm/Sodium Chloride 50 ml @ 100 mls/hr Q8HRS IV Last administered on 08/30/18at 05:01; Start 08/25/18 at 22:00 Famotidine (Pepcid Vial) 20 mg DAILY IVP Last administered on 08/26/18at 08:53; Start 08/25/18 at 15:30; Stop 08/26/18 at 12:21; Status DC Acetaminophen (Tylenol) 650 mg PRN Q6HRS PRN PO FEVER Last administered on 08/26/18at 08:33; Start 08/26/18 at 00:30 Acetaminophen (Tylenol Supp) 650 mg PRN Q6HRS PRN UT FEVER; Start 08/26/18 at 00:30 Vancomycin HCl (Vanco Per Pharmacy) 1 each PRN DAILY PRN MC SEE COMMENTS Last administered on 08/29/18 08:52; Start 08/26/18 at 11:00 Fluconazole (Diflucan) 200 mg DAILY PO Last administered on 08/29/18 08:19; Start 08/26/18 at 12:00 Ascorbic Acid (Vitamin C) 500 mg DAILY PO Last administered on 08/29/18 08:19; Start 08/26/18 at 13:00 Multivitamins (Thera M Plus) 1 tab DAILY PO Last administered on 08/29/18 08:19; Start 08/26/18 at 13:00 Pantoprazole Sodium (Protonix) 40 mg DAILYAC PO Last administered on 08/30/18 07:35; Start 08/26/18 at 13:00 Vancomycin HCl 1 gm/Sodium Chloride 250 ml @ 250 mls/hr 1X ONCE IV Last admin istered on 08/26/18at 15:53; Start 08/26/18 at 15:00; Stop 08/26/18 at 15:59; Status DC Vancomycin HCl 500 mg/Sodium Chloride 100 ml @ 100 mls/hr QMWF IV Last administered on 08/27/18at 16:35; Start 08/27/18 at 16:00 Vancomycin HCl (Vancomycin Random Level) 1 each 1X ONCE MC Last administered on 08/28/18at 06:00; Start 08/28/18 at 06:00; Stop 08/28/18 at 06:01; Status DC Lactobacillus Rhamnosus (Culturelle) 1 cap BID PO Last administered on 08/29/18at 21:53; Start 08/26/18 at 21:00 Aspirin (Children'S Aspirin) 81 mg DAILYWBKFT PO Last administered on 08/29/18 08:19; Start 08/27/18 at 08:00 Vitamin B Complex/ Vitamin C (Cassie-Nyla) 1 tab DAILY PO Last administered on 08/29/18 08:19; Start 08/27/18 at 09:00 Insulin Glargine (Lantus) 60 units BID SQ Last administered on 08/30/18 08:05; Start 08/27/18 at 09:00 Insulin Human Lispro (HumaLOG) 50 units BIDACBL SQ Last administered on 08/30/18 08:04; Start 08/27/18 at 07:30 Insulin Human Lispro (HumaLOG) 55 units DAILYBFRSUP SQ Last administered on 08/29/18at 16:53; Start 08/27/18 at 17:00 Acetaminophen (Tylenol) 500 mg PRN BID PRN PO PAIN; Start 08/27/18 at 01:45 Warfarin Sodium (Coumadin) 5 mg DAILY16 PO Last administered on 08/29/18at 16:47; Start 08/27/18 at 16:00 Warfarin Sodium (Coumadin Per Physician) 1 each PRN DAILY PRN MC SEE COMMENTS Last administered on 08/29/18at 08:49; Start 08/27/18 at 16:00 Sodium Chloride 1,000 ml @ 1,000 mls/hr Q1H PRN IV hypotension; Start 08/27/18 at 09:07; Stop 08/27/18 at 15:06; Status DC Diphenhydramine HCl (Benadryl) 25 mg 1X PRN PRN IV ITCHING; Start 08/27/18 at 09:15; Stop 08/28/18 at 09:14; Status DC Diphenhydramine HCl (Benadryl) 25 mg 1X PRN PRN IV ITCHING; Start 08/27/18 at 09:15; Stop 08/28/18 at 09:14; Status DC Sodium Chloride 1,000 ml @ 400 mls/hr Q2H30M PRN IV PATENCY; Start 08/27/18 at 09:07; Stop 08/27/18 at 21:06; Status DC Info (PHARMACY MONITORING -- do not chart) 1 each PRN DAILY PRN MC SEE COMMENTS; Start 08/27/18 at 09:15; Status Cancel Vancomycin HCl 500 mg/Sodium Chloride 100 ml @ 100 mls/hr 1X ONCE IV Last administered on 08/28/18at 08:41; Start 08/28/18 at 09:00; Stop 08/28/18 at 09:59; Status DC Sodium Chloride 1,000 ml @ 1,000 mls/hr Q1H PRN IV hypotension; Start 08/30/18 at 07:10; Stop 08/30/18 at 13:09 Albumin Human 200 ml @ 200 mls/hr 1X PRN PRN IV Hypotension; Start 08/30/18 at 07:15; Stop 08/30/18 at 13:14 Diphenhydramine HCl (Benadryl) 25 mg 1X PRN PRN IV ITCHING; Start 08/30/18 at 07:15; Stop 08/31/18 at 07:14 Diphenhydramine HCl (Benadryl) 25 mg 1X PRN PRN IV ITCHING; Start 08/30/18 at 07:15; Stop 08/31/18 at 07:14 Sodium Chloride 1,000 ml @ 400 mls/hr Q2H30M PRN IV PATENCY; Start 08/30/18 at 07:10; Stop 08/30/18 at 19:09 Info (PHARMACY MONITORING -- do not chart) 1 each PRN DAILY PRN MC SEE COMMENTS; Start 08/30/18 at 07:15; Status UNV Info (PHARMACY MONITORING -- do not chart) 1 each PRN DAILY PRN MC SEE COMMENTS; Start 08/30/18 at 07:15 Active Scripts Active Zofran Odt (Ondansetron) 4 Mg Tab.rapdis 4 Mg PO BID PRN Tamiflu (Oseltamivir Phosphate) 75 Mg Capsule 1 Cap PO BID Reported Aspirin 81 Mg Tab.chew 1 Tab PO DAILY Acetaminophen 500 Mg Tablet 1 Tab PO BID PRN Renal Vitamin Tablet (Folic Acid/Vit Bcomp,C) 0.8 Mg Tablet 0.8 Mg PO DAILY Humalog (Insulin Lispro) 100 Unit/1 Ml Insuln.pen 55 Unit SQ DAILYBFRSUP Humalog (Insulin Lispro) 100 Unit/1 Ml Insuln.pen 50 Unit SQ BIDACBL Lantus Solostar (Insulin Glargine,Hum.rec.anlog) 100 Unit/1 Ml Insuln.pen 60-70 Unit SQ BID 60 units breakfast 70 units dinner Warfarin Sodium 5 Mg Tablet 5 Mg PO DAILY Vitals/I & O Vital Sign - Last 24 Hours 08/29/18 08/29/18 08/29/18 08/29/18 11:00 15:00 19:00 20:22 Temp 98.6 98.5 98.8 98.6 98.5 98.8 Pulse 81 87 81 Resp 14 14 18 B/P (MAP) 126/64 (84) 155/71 (99) 154/74 (100) Pulse Ox 95 93 94 O2 Delivery Room Air Room Air Room Air Room Air 08/29/18 08/30/18 08/30/18 23:00 03:00 07:00 Temp 98.4 98.4 98.8 98.4 98.4 98.8 Pulse 92 85 88 Resp 20 18 14 B/P (MAP) 149/65 (93) 134/43 (73) 155/84 (107) Pulse Ox 92 93 90 O2 Delivery Room Air Room Air Room Air Intake and Output 08/29/18 08/29/18 08/30/18 15:00 23:00 07:00 Intake Total 950 ml 670 ml 470 ml Balance 950 ml 670 ml 470 ml DELVIS BRYANT MD August 30, 2018 10:16
--- NOTE | 2018-08-30 10:35 | PDOC ---
Infectious Disease Note Subjective Subjective Wants to go home c/o ankle pain No F/C Says yeast in groin/pannus areas is better Vital Sign Vital Signs Vital Signs Date Time Temp Pulse Resp B/P (MAP) Pulse Ox O2 Delivery O2 Flow Rate FiO2 08/30/18 07:00 98.8 88 14 155/84 (107) 90 Room Air 98.8 Physical Exam PHYSICAL EXAM GENERAL: Reclining, alert, dialyzing HEENT: Oral cavity clear NECK: Supple LUNGS: Clear. HEART: S1, S2 regular. ABDOMEN: Obese, soft and nontender (didn't want me to lift gown up) EXTREMITIES: chronic venous insufficiency and ulcerations, erythema and warmth NEUROLOGICAL: Alert, oriented. left upper arm fistula. SKIN: No rash PIV ok Labs Lab Laboratory Tests Test 08/29/18 11:32 08/29/18 16:37 08/29/18 20:46 08/30/18 04:50 Glucose (Fingerstick) 149 mg/dL (70-99) 138 mg/dL (70-99) 81 mg/dL (70-99) White Blood Count 13.7 x10^3/uL (4.0-11.0) Red Blood Count 3.24 x10^6/uL (4.30-5.70) Hemoglobin 10.3 g/dL (13.0-17.5) Hematocrit 31.3 % (39.0-53.0) Mean Corpuscular Volume 97 fL (79-100) Mean Corpuscular Hemoglobin 32 pg (25-35) Mean Corpuscular Hemoglobin Concent 33 g/dL (31-37) Red Cell Distribution Width 15.6 % (11.5-14.5) Platelet Count 278 x10^3/uL (140-400) Neutrophils (%) (Auto) 78 % (31-73) Lymphocytes (%) (Auto) 14 % (24-48) Monocytes (%) (Auto) 5 % (0-9) Eosinophils (%) (Auto) 3 % (0-3) Basophils (%) (Auto) 1 % (0-3) Neutrophils # (Auto) 10.7 x10^3uL (1.8-7.7) Lymphocytes # (Auto) 1.9 x10^3/uL (1.0-4.8) Monocytes # (Auto) 0.6 x10^3/uL (0.0-1.1) Eosinophils # (Auto) 0.4 x10^3/uL (0.0-0.7) Basophils # (Auto) 0.1 x10^3/uL (0.0-0.2) Prothrombin Time 28.0 SEC (11.7-14.0) Prothromb Time International Ratio 2.6 (0.8-1.1) Sodium Level 136 mmol/L (136-145) Potassium Level 5.3 mmol/L (3.5-5.1) Chloride Level 100 mmol/L (98-107) Carbon Dioxide Level 19 mmol/L (21-32) Anion Gap 17 (6-14) Blood Urea Nitrogen 68 mg/dL (8-26) Creatinine 13.5 mg/dL (0.7-1.3) Estimated GFR (Cockcroft-Gault) 3.7 BUN/Creatinine Ratio 5 (6-20) Glucose Level 136 mg/dL (70-99) Calcium Level 8.9 mg/dL (8.5-10.1) Total Bilirubin 0.5 mg/dL (0.2-1.0) Aspartate Amino Transf (AST/SGOT) 44 U/L (15-37) Alanine Aminotransferase (ALT/SGPT) 59 U/L (16-63) Alkaline Phosphatase 76 U/L (46-116) Total Protein 8.0 g/dL (6.4-8.2) Albumin 2.3 g/dL (3.4-5.0) Albumin/Globulin Ratio 0.4 (1.0-1.7) Test 08/30/18 07:57 Glucose (Fingerstick) 239 mg/dL (70-99) Micro 08/25. BLD CULT RESULT 1 Final Beta hemolytic Streptococcus, group A Antibiotic RSLT#1 Cefepime S<=0.25 Cefotaxime S<=0.25 Ceftriaxone S<=0.25 Chloramphenicol S =2 Clindamycin S<=0.06 Erythromycin S<=0.06 Levofloxacin S =0.5 Penicillin S<=0.03 Vancomycin S =0.5 Objective Assessment Fever and chills, better Leukocytosis BC + with Strep A Lower ext infected ulcers Obesity Yeast infection in skin folds ESRD on HD Chronic diarrhea Plan Plan of Care DC vanc and Zosyn, fluconazole Start on keflex 500 mg po bid for 10 days nystatin powder bid wound care ok to dc home from id standpoint D/W Patient seen, examined, I agree with above. Assessment and plan was coformulated with ROD BENDING MACHINE OPERATOR. VENU GRACIA APRN August 30, 2018 10:35 DOUG PICKETT MD August 30, 2018 12:26
--- NOTE | 2018-08-30 10:57 | PDOC ---
Renal-Progress Notes Subjective Notes Notes NONE History of Present Illness Hx of present illness NO CHANGE Vitals Vitals Vital Signs Date Time Temp Pulse Resp B/P (MAP) Pulse Ox O2 Delivery O2 Flow Rate FiO2 08/30/18 07:00 98.8 88 14 155/84 (107) 90 Room Air 98.8 Weight Weight [ ] I.O. Intake and Output Intake and Output 08/30/18 07:00 Intake Total 2090 ml Balance 2090 ml Intake Oral 1990 ml IV Total 100 ml # Voids 1 Labs Labs Laboratory Tests Test 08/29/18 11:32 08/29/18 16:37 08/29/18 20:46 08/30/18 04:50 Glucose (Fingerstick) 149 mg/dL (70-99) 138 mg/dL (70-99) 81 mg/dL (70-99) White Blood Count 13.7 x10^3/uL (4.0-11.0) Red Blood Count 3.24 x10^6/uL (4.30-5.70) Hemoglobin 10.3 g/dL (13.0-17.5) Hematocrit 31.3 % (39.0-53.0) Mean Corpuscular Volume 97 fL (79-100) Mean Corpuscular Hemoglobin 32 pg (25-35) Mean Corpuscular Hemoglobin Concent 33 g/dL (31-37) Red Cell Distribution Width 15.6 % (11.5-14.5) Platelet Count 278 x10^3/uL (140-400) Neutrophils (%) (Auto) 78 % (31-73) Lymphocytes (%) (Auto) 14 % (24-48) Monocytes (%) (Auto) 5 % (0-9) Eosinophils (%) (Auto) 3 % (0-3) Basophils (%) (Auto) 1 % (0-3) Neutrophils # (Auto) 10.7 x10^3uL (1.8-7.7) Lymphocytes # (Auto) 1.9 x10^3/uL (1.0-4.8) Monocytes # (Auto) 0.6 x10^3/uL (0.0-1.1) Eosinophils # (Auto) 0.4 x10^3/uL (0.0-0.7) Basophils # (Auto) 0.1 x10^3/uL (0.0-0.2) Prothrombin Time 28.0 SEC (11.7-14.0) Prothromb Time International Ratio 2.6 (0.8-1.1) Sodium Level 136 mmol/L (136-145) Potassium Level 5.3 mmol/L (3.5-5.1) Chloride Level 100 mmol/L (98-107) Carbon Dioxide Level 19 mmol/L (21-32) Anion Gap 17 (6-14) Blood Urea Nitrogen 68 mg/dL (8-26) Creatinine 13.5 mg/dL (0.7-1.3) Estimated GFR (Cockcroft-Gault) 3.7 BUN/Creatinine Ratio 5 (6-20) Glucose Level 136 mg/dL (70-99) Calcium Level 8.9 mg/dL (8.5-10.1) Total Bilirubin 0.5 mg/dL (0.2-1.0) Aspartate Amino Transf (AST/SGOT) 44 U/L (15-37) Alanine Aminotransferase (ALT/SGPT) 59 U/L (16-63) Alkaline Phosphatase 76 U/L (46-116) Total Protein 8.0 g/dL (6.4-8.2) Albumin 2.3 g/dL (3.4-5.0) Albumin/Globulin Ratio 0.4 (1.0-1.7) Test 08/30/18 07:57 Glucose (Fingerstick) 239 mg/dL (70-99) Micro Micro Microbiology 08/25/18 Blood Culture - Preliminary, Resulted NO GROWTH AFTER 4 DAYS Review of Systems Constitutional: yes: other (NONE, REFUSES TO SPEAK TO ME) Physical Exam General Appearance: other (WONT ALLOW ME TO EXAM HIM) Assessment Assessment IMP ESRD SEPSIS LEUCOCYTOSIS ANEMIA DIARRHEA PLAN HD TODAY UF TO DW ANTIBIOTICS GALEN BOTELLO MD August 30, 2018 10:57
--- NOTE | 2018-08-30 11:01 | NUR ---
IP: Pt's hx of mrsa was in 2014. Pt now has 2 negative screens and may be removed from contact precautions.
[2018-08-30 11:10] VITALS: BP 141/64
[2018-08-30] MEDS: ASPIRIN CHEWABLE 81 MG TABLET. PO SCH (12:58)
[2018-08-30] MEDS: MULTIVITAMIN with MINERAL TABLET. PO SCH (12:58)
[2018-08-30] MEDS: FLUCONAZOLE 100 MG TABLET. PO SCH (12:58)
[2018-08-30] MEDS: FOLIC/VIT B COMP W-C (RENAL) TABLET. PO SCH (12:58)
[2018-08-30] MEDS: LACTOBACILLUS RHAMNOSUS GG 1 CAPSULE. PO SCH (12:59)
[2018-08-30] MEDS: ASCORBIC ACID 500 MG TABLET PO SCH (12:59)
--- NOTE | 2018-08-30 13:03 | NUR ---
pATIENT RETURN FROM DIALYSIS PER BED, EATING LATE LUNCH TRAY, PATIENT BLOOD SUGAR 83, HE WANTS FULL 50 UNITS OF INSULIN. PATIENT ALERT AND ORIENTED TIMES FOUR. SEE EMAR.
[2018-08-30] MEDS: VANCOMYCIN PER PHARMACY MC PRN ×2 (13:11→13:29)
--- NOTE | 2018-08-30 14:00 | NUR ---
1400 IV antibiotic not given as IV site clotted and patient to discharge home today with Keflex 500 mg BID. Patient and verb. understanding POC. Dr. Herring notified, to enter discharge orders.
--- NOTE | 2018-08-30 14:10 | PDOC3 ---
Discharge Summary Date of Admission: August 25, 2018 Date of Discharge: August 30, 2018 Follow-Up: 3-5 days Admitting Diagnosis comment: discharge dx SEPSIS Fever and chills Leukocytosis BC + with Strep Lower ext infected ulcers Obesity Yeast infection in skin folds ESRD on HD Chronic diarrhea ANEMIA SEC ckd c/o ankle pain History of Present Illness History of Present Illness Patient seen and examined Subspecialist notes reviewed Discussed with RN Patient is currently on dialysis CONT IV vanc and zosyn ESRD and ventral hernia, partial SBO resolving , patient poor surgical risk for hernia repair, angry at DR BOTELLO 08/27, WAS , AGITATED PLAN D/C 08/30 OK WITH ID Start on keflex 500 mg po bid for 10 days nystatin powder bid wound care D/C PLANNING 35 MIN Vitals Vitals Vital Signs Date Time Temp Pulse Resp B/P (MAP) Pulse Ox O2 Delivery O2 Flow Rate FiO2 08/30/18 07:00 98.8 88 14 155/84 (107) 90 Room Air 98.8 Physical Exam Physical Exam GENERAL: Propped up in bed, alert, NAD HEENT: Oral cavity clear NECK: Supple LUNGS: Clear. HEART: S1, S2 regular. ABDOMEN: Rather large with pannus, yeast infection between the skin folds and the groin. EXTREMITIES: chronic venous insufficiency and ulcerations, bandaged NEUROLOGICAL: Alert, oriented. left upper arm fistula. SKIN: No rash PIV ok General: Alert, Oriented X3, Cooperative, No acute distress, mild distress Heart: Regular rate, Normal S1, Normal S2 Lungs: Clear, Crackles Abdomen: Normal bowel sounds, Soft, No tenderness Extremities: No clubbing, No cyanosis, Other (muscular atrophy with ulcerations of lower anterior legs) Skin: No rashes, No breakdown Start on keflex 500 mg po bid for 10 days nystatin powder bid wound care FINAL DIAGNOSIS Problems Medical Problems: (1) ESRD (end stage renal disease) Status: Acute Brief Hospital Course Mr. Denny is a 63 old [sex] who presented with [SEPSIS, ESRD ] CONDITION AT DISCHARGE: Improved Discharge Medications Current Medications Sodium Chloride 250 ml @ 250 mls/hr 1X ONCE IV Last administered on 08/25/18at 11:18; Start 08/25/18 at 11:00; Stop 08/25/18 at 11:59; Status DC Acetaminophen (Tylenol) 1,000 mg 1X ONCE PO Last administered on 08/25/18at 11:00; Start 08/25/18 at 11:00; Stop 08/25/18 at 11:01; Status DC Ondansetron HCl (Zofran) 4 mg 1X ONCE IV Last administered on 08/25/18at 11:18; Start 08/25/18 at 11:15; Stop 08/25/18 at 11:16; Status DC Ondansetron HCl (Zofran) 4 mg STK-MED ONCE .ROUTE ; Start 08/25/18 at 11:15; Stop 08/25/18 at 11:16; Status DC Ceftriaxone Sodium (Rocephin) 1 gm 1X ONCE IVP ; Start 08/25/18 at 11:30; Stop 08/25/18 at 11:36; Status DC Vancomycin HCl 250 ml @ 250 mls/hr 1X ONCE IV Last administered on 08/25/18at 11:30; Start 08/25/18 at 11:30; Stop 08/25/18 at 12:29; Status DC Piperacillin Sod/ Tazobactam Sod (Zosyn Per Pharmacy) 1 each PRN DAILY PRN MC SEE COMMENTS; Start 08/25/18 at 11:45 Sodium Chloride 1,000 ml @ 1,000 mls/hr 1X ONCE IV Last administered on 08/25/18at 11:45; Start 08/25/18 at 11:45; Stop 08/25/18 at 12:44; Status DC Piperacillin Sod/ Tazobactam Sod 2.25 gm/Sodium Chloride 50 ml @ 100 mls/hr 1X ONCE IV Last administered on 08/25/18at 11:45; Start 08/25/18 at 11:45; Stop 08/25/18 at 12:14; Status DC Sodium Chloride 1,000 ml @ 100 mls/hr Q10H IV Last administered on 08/25/18at 20:21; Start 08/25/18 at 13:15; Stop 08/26/18 at 11:23; Status DC Piperacillin Sod/ Tazobactam Sod 2.25 gm/Sodium Chloride 50 ml @ 100 mls/hr Q8HRS IV Last administered on 08/30/18at 05:01; Start 08/25/18 at 22:00 Famotidine (Pepcid Vial) 20 mg DAILY IVP Last administered on 08/26/18 08:53; Start 08/25/18 at 15:30; Stop 08/26/18 at 12:21; Status DC Acetaminophen (Tylenol) 650 mg PRN Q6HRS PRN PO FEVER Last administered on 08/26/18 08:33; Start 08/26/18 at 00:30 Acetaminophen (Tylenol Supp) 650 mg PRN Q6HRS PRN CA FEVER; Start 08/26/18 at 00:30 Vancomycin HCl (Vanco Per Pharmacy) 1 each PRN DAILY PRN MC SEE COMMENTS Last administered on 08/30/18 13:29; Start 08/26/18 at 11:00 Fluconazole (Diflucan) 200 mg DAILY PO Last administered on 08/30/18 12:58; Start 08/26/18 at 12:00 Ascorbic Acid (Vitamin C) 500 mg DAILY PO Last administered on 08/30/18 12:59; Start 08/26/18 at 13:00 Multivitamins (Thera M Plus) 1 tab DAILY PO Last administered on 08/30/18 12:58; Start 08/26/18 at 13:00 Pantoprazole Sodium (Protonix) 40 mg DAILYAC PO Last administered on 08/30/18 07:35; Start 08/26/18 at 13:00 Vancomycin HCl 1 gm/Sodium Chloride 250 ml @ 250 mls/hr 1X ONCE IV Last administered on 08/26/18 15:53; Start 08/26/18 at 15:00; Stop 08/26/18 at 15:59; Status DC Vancomycin HCl 500 mg/Sodium Chloride 100 ml @ 100 mls/hr QMWF IV Last administered on 08/27/18 16:35; Start 08/27/18 at 16:00 Vancomycin HCl (Vancomycin Random Level) 1 each 1X ONCE MC Last administered on 08/28/18 06:00; Start 08/28/18 at 06:00; Stop 08/28/18 at 06:01; Status DC Lactobacillus Rhamnosus (Culturelle) 1 cap BID PO Last administered on 08/30/18 12:59; Start 08/26/18 at 21:00 Aspirin (Children'S Aspirin) 81 mg DAILYWBKFT PO Last administered on 08/30/18 12:58; Start 08/27/18 at 08:00 Vitamin B Complex/ Vitamin C (Cassie-Nyla) 1 tab DAILY PO Last administered on 08/30/18at 12:58; Start 08/27/18 at 09:00 Insulin Glargine (Lantus) 60 units BID SQ Last administered on 08/30/18at 08:05; Start 08/27/18 at 09:00 Insulin Human Lispro (HumaLOG) 50 units BIDACBL SQ Last administered on 08/30/18at 13:01; Start 08/27/18 at 07:30 Insulin Human Lispro (HumaLOG) 55 units DAILYBFRSUP SQ Last administered on 08/29/18at 16:53; Start 08/27/18 at 17:00 Acetaminophen (Tylenol) 500 mg PRN BID PRN PO PAIN; Start 08/27/18 at 01:45 Warfarin Sodium (Coumadin) 5 mg DAILY16 PO Last administered on 08/29/18at 16:47; Start 08/27/18 at 16:00 Warfarin Sodium (Coumadin Per Physician) 1 each PRN DAILY PRN MC SEE COMMENTS Last administered on 08/30/18at 13:24; Start 08/27/18 at 16:00 Sodium Chloride 1,000 ml @ 1,000 mls/hr Q1H PRN IV hypotension; Start 08/27/18 at 09:07; Stop 08/27/18 at 15:06; Status DC Diphenhydramine HCl (Benadryl) 25 mg 1X PRN PRN IV ITCHING; Start 08/27/18 at 09:15; Stop 08/28/18 at 09:14; Status DC Diphenhydramine HCl (Benadryl) 25 mg 1X PRN PRN IV ITCHING; Start 08/27/18 at 09:15; Stop 08/28/18 at 09:14; Status DC Sodium Chloride 1,000 ml @ 400 mls/hr Q2H30M PRN IV PATENCY; Start 08/27/18 at 09:07; Stop 08/27/18 at 21:06; Status DC Info (PHARMACY MONITORING -- do not chart) 1 each PRN DAILY PRN MC SEE COMMENTS; Start 08/27/18 at 09:15; Status Cancel Vancomycin HCl 500 mg/Sodium Chloride 100 ml @ 100 mls/hr 1X ONCE IV Last administered on 08/28/18at 08:41; Start 08/28/18 at 09:00; Stop 08/28/18 at 09:59; Status DC Sodium Chloride 1,000 ml @ 1,000 mls/hr Q1H PRN IV hypotension; Start 08/30/18 at 07:10; Stop 08/30/18 at 13:09; Status DC Albumin Human 200 ml @ 200 mls/hr 1X PRN PRN IV Hypotension; Start 08/30/18 at 07:15; Stop 08/30/18 at 13:14; Status DC Diphenhydramine HCl (Benadryl) 25 mg 1X PRN PRN IV ITCHING; Start 08/30/18 at 07:15; Stop 08/31/18 at 07:14 Diphenhydramine HCl (Benadryl) 25 mg 1X PRN PRN IV ITCHING; Start 08/30/18 at 07:15; Stop 08/31/18 at 07:14 Sodium Chloride 1,000 ml @ 400 mls/hr Q2H30M PRN IV PATENCY; Start 08/30/18 at 07:10; Stop 08/30/18 at 19:09 Info (PHARMACY MONITORING -- do not chart) 1 each PRN DAILY PRN MC SEE COMMENTS; Start 08/30/18 at 07:15; Status UNV Info (PHARMACY MONITORING -- do not chart) 1 each PRN DAILY PRN MC SEE COMMENTS; Start 08/30/18 at 07:15 Active Scripts Active Zofran Odt (Ondansetron) 4 Mg Tab.rapdis 4 Mg PO BID PRN Tamiflu (Oseltamivir Phosphate) 75 Mg Capsule 1 Cap PO BID Reported Aspirin 81 Mg Tab.chew 1 Tab PO DAILY Acetaminophen 500 Mg Tablet 1 Tab PO BID PRN Renal Vitamin Tablet (Folic Acid/Vit Bcomp,C) 0.8 Mg Tablet 0.8 Mg PO DAILY Humalog (Insulin Lispro) 100 Unit/1 Ml Insuln.pen 55 Unit SQ DAILYBFRSUP Humalog (Insulin Lispro) 100 Unit/1 Ml Insuln.pen 50 Unit SQ BIDACBL Lantus Solostar (Insulin Glargine,Hum.rec.anlog) 100 Unit/1 Ml Insuln.pen 60-70 Unit SQ BID 60 units breakfast 70 units dinner Warfarin Sodium 5 Mg Tablet 5 Mg PO DAILY Vital Signs Vital Signs Date Time Temp Pulse Resp B/P (MAP) Pulse Ox O2 Delivery O2 Flow Rate FiO2 08/30/18 11:10 81 141/64 (89) Room Air 08/30/18 07:00 98.8 14 90 98.8 Labs Laboratory Tests Test 08/28/18 17:00 08/28/18 20:47 08/29/18 06:23 08/29/18 11:32 Glucose (Fingerstick) 119 mg/dL (70-99) 72 mg/dL (70-99) 104 mg/dL (70-99) 149 mg/dL (70-99) Test 08/29/18 16:37 08/29/18 20:46 08/30/18 04:50 08/30/18 07:57 Glucose (Fingerstick) 138 mg/dL (70-99) 81 mg/dL (70-99) 239 mg/dL (70-99) White Blood Count 13.7 x10^3/uL (4.0-11.0) Red Blood Count 3.24 x10^6/uL (4.30-5.70) Hemoglobin 10.3 g/dL (13.0-17.5) Hematocrit 31.3 % (39.0-53.0) Mean Corpuscular Volume 97 fL (79-100) Mean Corpuscular Hemoglobin 32 pg (25-35) Mean Corpuscular Hemoglobin Concent 33 g/dL (31-37) Red Cell Distribution Width 15.6 % (11.5-14.5) Platelet Count 278 x10^3/uL (140-400) Neutrophils (%) (Auto) 78 % (31-73) Lymphocytes (%) (Auto) 14 % (24-48) Monocytes (%) (Auto) 5 % (0-9) Eosinophils (%) (Auto) 3 % (0-3) Basophils (%) (Auto) 1 % (0-3) Neutrophils # (Auto) 10.7 x10^3uL (1.8-7.7) Lymphocytes # (Auto) 1.9 x10^3/uL (1.0-4.8) Monocytes # (Auto) 0.6 x10^3/uL (0.0-1.1) Eosinophils # (Auto) 0.4 x10^3/uL (0.0-0.7) Basophils # (Auto) 0.1 x10^3/uL (0.0-0.2) Prothrombin Time 28.0 SEC (11.7-14.0) Prothromb Time International Ratio 2.6 (0.8-1.1) Sodium Level 136 mmol/L (136-145) Potassium Level 5.3 mmol/L (3.5-5.1) Chloride Level 100 mmol/L (98-107) Carbon Dioxide Level 19 mmol/L (21-32) Anion Gap 17 (6-14) Blood Urea Nitrogen 68 mg/dL (8-26) Creatinine 13.5 mg/dL (0.7-1.3) Estimated GFR (Cockcroft-Gault) 3.7 BUN/Creatinine Ratio 5 (6-20) Glucose Level 136 mg/dL (70-99) Calcium Level 8.9 mg/dL (8.5-10.1) Total Bilirubin 0.5 mg/dL (0.2-1.0) Aspartate Amino Transf (AST/SGOT) 44 U/L (15-37) Alanine Aminotransferase (ALT/SGPT) 59 U/L (16-63) Alkaline Phosphatase 76 U/L (46-116) Total Protein 8.0 g/dL (6.4-8.2) Albumin 2.3 g/dL (3.4-5.0) Albumin/Globulin Ratio 0.4 (1.0-1.7) Laboratory Tests Test 08/29/18 16:37 08/29/18 20:46 08/30/18 04:50 08/30/18 07:57 Glucose (Fingerstick) 138 mg/dL (70-99) 81 mg/dL (70-99) 239 mg/dL (70-99) White Blood Count 13.7 x10^3/uL (4.0-11.0) Red Blood Count 3.24 x10^6/uL (4.30-5.70) Hemoglobin 10.3 g/dL (13.0-17.5) Hematocrit 31.3 % (39.0-53.0) Mean Corpuscular Volume 97 fL (79-100) Mean Corpuscular Hemoglobin 32 pg (25-35) Mean Corpuscular Hemoglobin Concent 33 g/dL (31-37) Red Cell Distribution Width 15.6 % (11.5-14.5) Platelet Count 278 x10^3/uL (140-400) Neutrophils (%) (Auto) 78 % (31-73) Lymphocytes (%) (Auto) 14 % (24-48) Monocytes (%) (Auto) 5 % (0-9) Eosinophils (%) (Auto) 3 % (0-3) Basophils (%) (Auto) 1 % (0-3) Neutrophils # (Auto) 10.7 x10^3uL (1.8-7.7) Lymphocytes # (Auto) 1.9 x10^3/uL (1.0-4.8) Monocytes # (Auto) 0.6 x10^3/uL (0.0-1.1) Eosinophils # (Auto) 0.4 x10^3/uL (0.0-0.7) Basophils # (Auto) 0.1 x10^3/uL (0.0-0.2) Prothrombin Time 28.0 SEC (11.7-14.0) Prothromb Time International Ratio 2.6 (0.8-1.1) Sodium Level 136 mmol/L (136-145) Potassium Level 5.3 mmol/L (3.5-5.1) Chloride Level 100 mmol/L (98-107) Carbon Dioxide Level 19 mmol/L (21-32) Anion Gap 17 (6-14) Blood Urea Nitrogen 68 mg/dL (8-26) Creatinine 13.5 mg/dL (0.7-1.3) Estimated GFR (Cockcroft-Gault) 3.7 BUN/Creatinine Ratio 5 (6-20) Glucose Level 136 mg/dL (70-99) Calcium Level 8.9 mg/dL (8.5-10.1) Total Bilirubin 0.5 mg/dL (0.2-1.0) Aspartate Amino Transf (AST/SGOT) 44 U/L (15-37) Alanine Aminotransferase (ALT/SGPT) 59 U/L (16-63) Alkaline Phosphatase 76 U/L (46-116) Total Protein 8.0 g/dL (6.4-8.2) Albumin 2.3 g/dL (3.4-5.0) Albumin/Globulin Ratio 0.4 (1.0-1.7) Allergies Allergies Coded Allergies Type Severity Reaction Last Updated Verified No Known Medication Allergies Allergy Unknown 04/17/15 Yes Disposition/Orders: D/C to Home AMADA BRYANT MD August 30, 2018 14:10
[2018-08-30] MEDS ORDERED: CEPH-264 PO (14:15)
[2018-08-30] MEDS ORDERED: MULT1TAB90 PO (14:15)
[2018-08-30] MEDS ORDERED: ASCO500T2 PO (14:15)
--- NOTE | 2018-08-30 14:18 | DISCH ---
DISCHARGE INSTRUCTIONS Condition on Discharge Condition on Discharge: Stable Activity After Discharge Activity Instructions for Disc: Activity as tolerated Bathing Instructions: Shower-keep dressing dry Lifting Instructions after Dis: No heavy lifting, No pulling or pushing Exercise Instruction after Dis: Walk 10 min, 3 x per day Driving Instructions after Dis: Do not drive today Weight Bearing Status after Di: As tolerated Diet after Discharge Diet after Discharge: Renal Dialysis Diet Texture: Regular Liquid Texture: Thin Liquid Swallowing Supervision: None needed Wound Incision Care Wound/Incision Care: Keep wound/cast CDI, Change dressing, Reinforce dressing PRN Wound Care Equipment: Dressings Contacting the DRAnoop after DC Call your doctor for: Concerns you may have Treatment/Equipment after DC Adaptive Equipment Issued: None AMADA BRYANT MD August 30, 2018 14:18
--- NOTE | 2018-08-30 14:45 | PDOC ---
Subjective: Subjective: Feels fine, says going home today. Objective: Vital Signs: Vital Signs Date Time Temp Pulse Resp B/P (MAP) Pulse Ox O2 Delivery O2 Flow Rate FiO2 08/30/18 11:10 81 141/64 (89) Room Air 08/30/18 07:00 98.8 14 90 98.8 Labs: Laboratory Tests Test 08/29/18 16:37 08/29/18 20:46 08/30/18 04:50 08/30/18 07:57 Glucose (Fingerstick) 138 mg/dL 81 mg/dL 239 mg/dL White Blood Count 13.7 x10^3/uL Red Blood Count 3.24 x10^6/uL Hemoglobin 10.3 g/dL Hematocrit 31.3 % Mean Corpuscular Volume 97 fL Mean Corpuscular Hemoglobin 32 pg Mean Corpuscular Hemoglobin Concent 33 g/dL Red Cell Distribution Width 15.6 % Platelet Count 278 x10^3/uL Neutrophils (%) (Auto) 78 % Lymphocytes (%) (Auto) 14 % Monocytes (%) (Auto) 5 % Eosinophils (%) (Auto) 3 % Basophils (%) (Auto) 1 % Neutrophils # (Auto) 10.7 x10^3uL Lymphocytes # (Auto) 1.9 x10^3/uL Monocytes # (Auto) 0.6 x10^3/uL Eosinophils # (Auto) 0.4 x10^3/uL Basophils # (Auto) 0.1 x10^3/uL Prothrombin Time 28.0 SEC Prothromb Time International Ratio 2.6 Sodium Level 136 mmol/L Potassium Level 5.3 mmol/L Chloride Level 100 mmol/L Carbon Dioxide Level 19 mmol/L Anion Gap 17 Blood Urea Nitrogen 68 mg/dL Creatinine 13.5 mg/dL Estimated GFR (Cockcroft-Gault) 3.7 BUN/Creatinine Ratio 5 Glucose Level 136 mg/dL Calcium Level 8.9 mg/dL Total Bilirubin 0.5 mg/dL Aspartate Amino Transf (AST/SGOT) 44 U/L Alanine Aminotransferase (ALT/SGPT) 59 U/L Alkaline Phosphatase 76 U/L Total Protein 8.0 g/dL Albumin 2.3 g/dL Albumin/Globulin Ratio 0.4 PE: GEN: NAD LUNGS: CTAB HEART: RRR ABD: non-tender, obese NEURO/PSYCH: A & O 3 A/P: Bacteremia - Beta hemolytic Streptococcus, group A Ventral hernias involving large and small bowel DOUGLAS, ESRD H/o colon cancer and right hemicolectomy -- DC per primary. Outpt screening colonoscopy. TOMASZ BARTHOLOMEW August 30, 2018 14:45
[2018-08-30 15:05] VITALS: BP 146/62
--- NOTE | 2018-08-30 15:33 | NUR ---
Discharge instructions, medications, prescriptions and wound care reviewed with patient. He verb. understanding all instructions and denies questions. Patient received dressings for two days of dressings changes, and to follow up with PCP this week. Patient discharge to home with all belongings instructions, dressings and scripts to home with his .
== END 2018-08-30 15:35 | disposition home or self-care (01) | DRG 871 ==
LOC: ER 09:34 → ED HOLD 13:10 → 6 SOUTH 15:19 → 5 NORTH 08-27 19:34
PROVIDERS: ADMIT Internal Medicine; ATTEND Internal Medicine
DX: A41.9 Sepsis, unspecified organism (principal); N18.6 End stage renal disease; L02.419 Cutaneous abscess of limb, unspecified; L03.119 Cellulitis of unspecified part of limb; I12.0 Hypertensive chronic kidney disease with stage 5 chronic kidney disease or end stage renal disease; M62.82 Rhabdomyolysis; K43.0 Incisional hernia with obstruction, without gangrene; N39.0 Urinary tract infection, site not specified; K56.600 Partial intestinal obstruction, unspecified as to cause; Z68.41 Body mass index [BMI] 40.0-44.9, adult; L97.929 Non-pressure chronic ulcer of unspecified part of left lower leg with unspecified severity; D64.9 Anemia, unspecified; E11.22 Type 2 diabetes mellitus with diabetic chronic kidney disease; E11.42 Type 2 diabetes mellitus with diabetic polyneuropathy; E11.51 Type 2 diabetes mellitus with diabetic peripheral angiopathy without gangrene; E66.01 Morbid (severe) obesity due to excess calories; K52.9 Noninfective gastroenteritis and colitis, unspecified; B37.2 Candidiasis of skin and nail; D63.1 Anemia in chronic kidney disease; J44.9 Chronic obstructive pulmonary disease, unspecified; E78.5 Hyperlipidemia, unspecified; Z79.82 Long term (current) use of aspirin; Z82.49 Family history of ischemic heart disease and other diseases of the circulatory system; Z79.4 Long term (current) use of insulin; Z99.2 Dependence on renal dialysis; Z79.01 Long term (current) use of anticoagulants; Z90.49 Acquired absence of other specified parts of digestive tract; Z85.038 Personal history of other malignant neoplasm of large intestine; Z86.711 Personal history of pulmonary embolism; Z83.3 Family history of diabetes mellitus
CPT/HCPCS: 36415; 71045; 74176; 80053; 80202; 82607; 82962; 83540; 83550; 83605; 83690; 85007; 85025; 85027; 85610; 87040; 87077; 87205; 87641; 87804; 93005; 96365; 96368; 96375; J1815; J2405; J2543; J3370; J3490; J7030; J7050; 99285-25

== ENCOUNTER 2019-05-18 17:20 | Emergency (ER) | payer OTHER, MEDICARE ==
[~2019-05-18] VITALS: Ht 193 cm; Wt 158.6 kg
[~2019-05-18 17:20] MED LIST changes: +ASCO500T2 PO; +ASPI-630 PO; -INSU100V SQ; +INSU100V6 SQ; -LINE600T PO; +LINE600T12 PO; +MULT1TAB90 PO
[2019-05-18 18:35] LABS: BASO # 0.1 x10^3/uL (0.0-0.2); BASO % 1 % (0-3); EOS # 0.2 x10^3/uL (0.0-0.7); EOS % 2 % (0-3); LYMPH # 1.3 x10^3/uL (1.0-4.8); LYMPH % 14 % (24-48); MEAN CORPUSCULAR HEMOGLOBIN 34 pg (25-35); MEAN CORPUSCULAR HGB CONC 33 g/dL (31-37); MEAN CORPUSCULAR VOLUME 101 fL (79-100); MONO # 0.5 x10^3/uL (0.0-1.1); MONO % 5 % (0-9); NEUT # 7.2 x10^3/uL (1.8-7.7); NEUT % 79 % (31-73); PLATELET COUNT 302 x10^3/uL (140-400); RED BLOOD COUNT 1.96 x10^6/uL (4.30-5.70); WHITE BLOOD COUNT 9.2 x10^3/uL (4.0-11.0)
[2019-05-18 18:37] LABS: FECAL OB PT NEGATIVE (NEG)
[2019-05-18 18:39] LABS: HEMOGLOBIN 6.6 g/dL (13.0-17.5)
--- NOTE | 2019-05-18 18:39 | PHYS DOC ---
Past Medical History Past Medical History: Diabetes-Type II, DVT, Renal Failure, Other Additional Past Medical Histor: neuropathy, PE (JESSY HUBBARD APRN) Past Surgical History: Other Additional Past Surgical Histo: colon resection, L upper arm fistula (JESSY HUBBARD APRN) Alcohol Use: Rarely Drug Use: None (JESSY HUBBARD APRN) Attending Signature I have participated in the care of this patient and I have reviewed and agree with all pertinent clinical information above including history, exam, and recommendations. (IVAN COTTER MD) Adult General Chief Complaint Chief Complaint: ABNORMAL LABS HPI HPI Patient is a 63 year old male, accompanied by his who presents to the ER with complaints of a low hemoglobin at dialysis today. Pt states he was told his hemoglobin was 5.9 was today. He denies any current bleeding, melena, bloody stools, abdominal pain, nausea, or vomiting. Pt states he always has loose stools. Last Thursday on 05/07/19 he had a black stool but denies any black stools since then. He reports having spontaneous bleeding from his left arm AV fistula one week ago that he had to go to [facility] ER and have a stitch put in to stop the bleeding. He denies any shortness of breath at rest or fatigue since then. Pt states he has felt a little winded with ambulation this week. He denies any fever, cough, sore throat, epitaxis, chest pain, palpitations, dizziness, headache, back pain, or increased swelling in his lower extremities. Pt states his legs are always swollen after a past hx of DVTs. He currently denies any pain or complaints. All other ROS is neg unless otherwise noted in HPI. (JESSY HUBBARD APRN) Review of Systems Review of Systems See Above (JESSY HUBBARD APRN) Allergies Allergies Allergies Coded Allergies Type Severity Reaction Last Updated Verified procaine Allergy Intermediate 05/18/19 Yes (IVAN COTTER MD) Physical Exam Physical Exam See Above Constitutional: Well developed, well nourished, no acute distress, non-toxic appearance, obese [] HENT: Normocephalic, atraumatic, bilateral external ears normal, oropharynx moist, no oral exudates, nose normal. [] Eyes: PERRLA, EOMI, conjunctiva normal, no discharge. [] Neck: Normal range of motion, no stridor. [] Cardiovascular:Heart rate regular rhythm, no murmur [] Lungs & Thorax: Bilateral breath sounds clear to auscultation, All other ROS is neg Abdomen: distended, Bowel sounds normal, soft, no tenderness, no masses, no pulsatile masses. [] Skin: Warm, dry, no erythema, pale, no rash. [] Back: No tenderness Extremities: L arm AV fistula with +thrill and bruit, No tenderness, no cyanosis, no clubbing, ROM intact; 2+ edema RLE, 1+ edema LLE, cap refill < 2 seconds x4 extremities Neurologic: Alert and oriented X 3, no focal deficits noted. [] Psychologic: Affect normal, judgement normal, mood normal. [] (JESSY HUBBARD APRN) Current Patient Data Vital Signs Vital Signs Date Time Temp Pulse Resp B/P (MAP) Pulse Ox O2 Delivery O2 Flow Rate FiO2 05/18/19 23:15 99 20 111/52 (71) 93 Room Air 05/18/19 22:13 98.6 98.6 (IVAN COTTER MD) Lab Values Laboratory Tests Test 05/18/19 18:24 05/18/19 22:35 White Blood Count 9.2 x10^3/uL (4.0-11.0) Red Blood Count 1.96 x10^6/uL (4.30-5.70) L Hemoglobin 6.6 g/dL (13.0-17.5) *L 6.8 g/dL (13.0-17.5) *L Hematocrit 19.7 % (39.0-53.0) *L 20.3 % (39.0-53.0) *L Mean Corpuscular Volume 101 fL (79-100) H Mean Corpuscular Hemoglobin 34 pg (25-35) Mean Corpuscular Hemoglobin Concent 33 g/dL (31-37) Red Cell Distribution Width 19.0 % (11.5-14.5) H Platelet Count 302 x10^3/uL (140-400) Neutrophils (%) (Auto) 79 % (31-73) H Lymphocytes (%) (Auto) 14 % (24-48) L Monocytes (%) (Auto) 5 % (0-9) Eosinophils (%) (Auto) 2 % (0-3) Basophils (%) (Auto) 1 % (0-3) Neutrophils # (Auto) 7.2 x10^3/uL (1.8-7.7) Lymphocytes # (Auto) 1.3 x10^3/uL (1.0-4.8) Monocytes # (Auto) 0.5 x10^3/uL (0.0-1.1) Eosinophils # (Auto) 0.2 x10^3/uL (0.0-0.7) Basophils # (Auto) 0.1 x10^3/uL (0.0-0.2) Prothrombin Time 39.3 SEC (11.7-14.0) H Prothrombin Time INR 4.0 (0.8-1.1) H Activated Partial Thromboplast Time 63 SEC (24-38) H Stool Occult Blood Negative (NEG) Sodium Level 139 mmol/L (136-145) Potassium Level 3.8 mmol/L (3.5-5.1) Chloride Level 95 mmol/L (98-107) L Carbon Dioxide Level 36 mmol/L (21-32) H Anion Gap 8 (6-14) Blood Urea Nitrogen 21 mg/dL (8-26) Creatinine 5.2 mg/dL (0.7-1.3) H Estimated GFR (Cockcroft-Gault) 11.3 BUN/Creatinine Ratio 4 (6-20) L Glucose Level 299 mg/dL (70-99) H Calcium Level 9.0 mg/dL (8.5-10.1) Total Bilirubin 0.2 mg/dL (0.2-1.0) Aspartate Amino Transferase (AST) 25 U/L (15-37) Alanine Aminotransferase (ALT) 28 U/L (16-63) Alkaline Phosphatase 60 U/L (46-116) Total Protein 7.5 g/dL (6.4-8.2) Albumin 2.9 g/dL (3.4-5.0) L Albumin/Globulin Ratio 0.6 (1.0-1.7) L Laboratory Tests 05/18/19 18:24 05/18/19 22:35 Laboratory Tests 05/18/19 18:24 (IVAN COTTER MD) Lab Values Laboratory Tests Test 05/18/19 18:24 05/18/19 22:35 White Blood Count 9.2 x10^3/uL (4.0-11.0) Red Blood Count 1.96 x10^6/uL (4.30-5.70) L Hemoglobin 6.6 g/dL (13.0-17.5) *L 6.8 g/dL (13.0-17.5) *L Hematocrit 19.7 % (39.0-53.0) *L 20.3 % (39.0-53.0) *L Mean Corpuscular Volume 101 fL (79-100) H Mean Corpuscular Hemoglobin 34 pg (25-35) Mean Corpuscular Hemoglobin Concent 33 g/dL (31-37) Red Cell Distribution Width 19.0 % (11.5-14.5) H Platelet Count 302 x10^3/uL (140-400) Neutrophils (%) (Auto) 79 % (31-73) H Lymphocytes (%) (Auto) 14 % (24-48) L Monocytes (%) (Auto) 5 % (0-9) Eosinophils (%) (Auto) 2 % (0-3) Basophils (%) (Auto) 1 % (0-3) Neutrophils # (Auto) 7.2 x10^3/uL (1.8-7.7) Lymphocytes # (Auto) 1.3 x10^3/uL (1.0-4.8) Monocytes # (Auto) 0.5 x10^3/uL (0.0-1.1) Eosinophils # (Auto) 0.2 x10^3/uL (0.0-0.7) Basophils # (Auto) 0.1 x10^3/uL (0.0-0.2) Prothrombin Time 39.3 SEC (11.7-14.0) H Prothrombin Time INR 4.0 (0.8-1.1) H Activated Partial Thromboplast Time 63 SEC (24-38) H Stool Occult Blood Negative (NEG) Sodium Level 139 mmol/L (136-145) Potassium Level 3.8 mmol/L (3.5-5.1) Chloride Level 95 mmol/L (98-107) L Carbon Dioxide Level 36 mmol/L (21-32) H Anion Gap 8 (6-14) Blood Urea Nitrogen 21 mg/dL (8-26) Creatinine 5.2 mg/dL (0.7-1.3) H Estimated GFR (Cockcroft-Gault) 11.3 BUN/Creatinine Ratio 4 (6-20) L Glucose Level 299 mg/dL (70-99) H Calcium Level 9.0 mg/dL (8.5-10.1) Total Bilirubin 0.2 mg/dL (0.2-1.0) Aspartate Amino Transferase (AST) 25 U/L (15-37) Alanine Aminotransferase (ALT) 28 U/L (16-63) Alkaline Phosphatase 60 U/L (46-116) Total Protein 7.5 g/dL (6.4-8.2) Albumin 2.9 g/dL (3.4-5.0) L Albumin/Globulin Ratio 0.6 (1.0-1.7) L Laboratory Tests 05/18/19 18:24 05/18/19 22:35 Laboratory Tests 05/18/19 18:24 (JESSY HUBBARD APRN) EKG EKG [] (JESSY HUBBARD APRN) Radiology/Procedures Radiology/Procedures [] (JESSY HUBBARD APRN) Course & Med Decision Making Course & Med Decision Making Pertinent Labs and Imaging studies reviewed. (See chart for details) 1910- Spoke with Dr. Yordy Victor about patient admit. Advised that pt has no complaints that fecal occult was negative. Pt only reports dyspnea with exertion. VSS. Per Dr. Victor I will administer 1 unit of PRBCs and d/c patient home from the ER if he remains asymptomatic with normal VS. Patient received 1 unit of packed red blood cells in the emergency department. His hemoglobin increased to 6.8. Patient continued to be asymptomatic he denied any complaints and his vital signs were stable. Discussed the patient and his treatment also with Dr. Manzano. We'll allow patient to go home and follow up with his primary care doctor tomorrow. Patient verbalized an understanding of home care, medications, follow-up, and return to ED instructions and was in agreement with the plan of care. [] (JESSY HUBBARD APRN) Dragon Disclaimer Dragon Disclaimer This electronic medical record was generated, in whole or in part, using a voice recognition dictation system. (JESSY HUBBARD APRN) Departure Departure Impression: Primary Impression: Anemia Additional Impression: Patient consents to blood transfusion Disposition: HOME, SELF-CARE Condition: STABLE Referrals: HIGINIO WISE MD (PCP) Patient Instructions: Anemia, FAQs Additional Instructions: Follow-up with your primary care doctor tomorrow, return to the ER if symptoms worsen. Problem Qualifiers Primary Impression: Anemia Anemia type: due to chronic kidney disease Chronic kidney disease stage: on chronic dialysis Qualified Codes: N18.6 - End stage renal disease; D63.1 - Anemia in chronic kidney disease; Z99.2 - Dependence on renal dialysis JESSY HUBBARD APRN May 18, 2019 18:39 IVAN COTTER MD May 19, 2019 01:35
[2019-05-18 18:40] LABS: HEMATOCRIT 19.7 % (39.0-53.0)
[2019-05-18 18:43] LABS: PROTHROMBIN TIME PATIENT 39.3 SEC (11.7-14.0)
[2019-05-18 18:45] LABS: CREATININE 5.2 mg/dL (0.7-1.3); GFR 11.3; POTASSIUM 3.8 mmol/L (3.5-5.1)
[2019-05-18 18:50] LABS: ALBUMIN 2.9 g/dL (3.4-5.0); ALBUMIN/GLOBULIN RATIO 0.6 (1.0-1.7); TOTAL BILIRUBIN 0.2 mg/dL (0.2-1.0); TOTAL PROTEIN 7.5 g/dL (6.4-8.2)
[2019-05-18 19:58] VITALS: BP 111/53
[2019-05-18 20:15] VITALS: BP 108/49
[2019-05-18 21:17] VITALS: BP 180/76
[2019-05-18 22:13] VITALS: BP 138/54
[2019-05-18 22:46] LABS: HEMOGLOBIN 6.8 g/dL (13.0-17.5)
[2019-05-18 22:47] LABS: HEMATOCRIT 20.3 % (39.0-53.0)
[2019-05-18 23:15] VITALS: BP 111/52
== END 2019-05-18 23:18 | disposition home or self-care (01) ==
LOC: ER 17:20
DX: E11.22 Type 2 diabetes mellitus with diabetic chronic kidney disease (principal); N18.9 Chronic kidney disease, unspecified; D63.1 Anemia in chronic kidney disease; E11.40 Type 2 diabetes mellitus with diabetic neuropathy, unspecified; Z99.2 Dependence on renal dialysis; Z86.718 Personal history of other venous thrombosis and embolism; Z86.711 Personal history of pulmonary embolism; Z98.890 Other specified postprocedural states; Z88.4 Allergy status to anesthetic agent
CPT/HCPCS: 36415; 36430; 80053; 82274; 85014; 85018; 85025; 85610; 85730; 86850; 86900; 86901; 86920; 99285; P9016

== ENCOUNTER → 2019-09-08 | Outpatient (CLI) | payer OTHER, MEDICARE ==
[~2019-09-08] MED LIST changes: -ASCO500T2 PO; +ASCO500T4 PO
--- NOTE | 2019-09-08 11:42 | RAD ---
09/08/2019 1. Ankle-brachial indices 2. Bilateral lower extremity arterial duplex ultrasound INDICATION: Nonhealing wounds, right lateral ankle and left heel: Lateral foot. History of diabetes. History of end-stage renal disease. Discussion: Right brachial pressure: 172 mmHg Left brachial pressure: Unobtainable (left upper extremity AV fistula) Right ankle pressure: 193 mmHg Left ankle pressure 205 mmHg Right MARYAN 1.12 Left MARYAN 1.19 Ankle brachial indices at upper limits of normal. Ultrasound evaluation of the major arteries of the bilateral lower extremities was performed including color Doppler imaging with spectral analysis. There is mild diffuse atherosclerotic vascular disease. Essentially normal waveform morphology and velocities seen throughout the right lower extremity. Nonspecific mild elevation in peak systolic velocity seen in the right common femoral artery, likely not clinically significant. No evidence of high-grade stenosis, aneurysm, or occlusion is seen on the right. Similar minimal nonspecific elevation in velocities within the left common femoral artery noted. Essentially normal waveform morphology and velocities seen throughout the left lower extremity no evidence of high-grade stenosis, aneurysm, or occlusion is seen within the major arteries of the left lower extremity. Visualized portions of all 3 tibial vessels are patent bilaterally. IMPRESSION: 1. Ankle brachial indices within top normal range. Hypertension. 2. Mild diffuse atherosclerotic vascular disease without ultrasound evidence of high-grade stenosis within the major arteries of the bilateral lower extremities. All 3 tibial vessels appear to be grossly patent bilaterally Electronically signed by: Giovanni Quiroga MD (09/08/2019 11:39 AM) [id number]
--- NOTE | 2019-09-08 14:15 | RAD ---
VENOUS REFLUX BILATERAL History: Nonhealing wounds. Bilateral lower extremities. Hypertension. Diabetes. Comparison: None. Discussion: Multiple longitudinal and transverse high resolution real-time images of the venous system of bilateral lower extremity were obtained with color and Doppler sampling. Bilateral greater saphenous vein reflux noted from the groin to the ankle. Right proximal greater saphenous vein measures 0.8 cm. reflux time 1.5 seconds. Right mid greater saphenous vein measures 0.5 cm with reflux time 1.5 seconds. Right distal greater saphenous vein just above the level of the knee reflux time 0.8 seconds. Right greater saphenous vein the level of the proximal calf measures 0.4 cm with reflux x2.4 seconds. Mid calf measures 0.3 cm with reflux time 1.7 seconds. Right distal calf measures 0.3 cm reflux time 2.5 seconds. Right lesser saphenous vein proximally reflux time 1.1 seconds and mid 0.9 seconds. Left greater saphenous vein reflux and 1.2 seconds measures 0.7 cm. Left mid greater saphenous vein measures 0.4 cm reflux time 0.7 seconds. Distal great saphenous vein at the level of the knee measures 0.4 cm reflux x2.1 seconds. Greater saphenous vein level of the calf measures 0.4 cm with reflux time 2.1 seconds. Grade saphenous vein in the mid calf measures 0.3 cm with reflux and 1.3 seconds. Distal greater saphenous vein of the calf measures 0.3 cm with reflux time 1.1 seconds. No perforators identified. Targeted ultrasound of the right lateral ankle and left lateral mid foot in the region of the wounds demonstrates no fluid collection to suggest abscess. Impression: 1. Bilateral greater saphenous vein insufficiency. Electronically signed by: Ronnie Villalobos DO (09/08/2019 2:11 PM) [id number]
== END ==
LOC: US 07:42
PROVIDERS: ATTEND Emergency Medicine Undersea and Hyperbaric Medicine
DX: S81.802A Unspecified open wound, left lower leg, initial encounter (principal); S81.801A Unspecified open wound, right lower leg, initial encounter; E11.9 Type 2 diabetes mellitus without complications; I87.2 Venous insufficiency (chronic) (peripheral); I70.203 Unspecified atherosclerosis of native arteries of extremities, bilateral legs; I10 Essential (primary) hypertension; X58.XXXA Exposure to other specified factors, initial encounter; Y93.89 Activity, other specified; Y92.89 Other specified places as the place of occurrence of the external cause; Y99.8 Other external cause status
CPT/HCPCS: 93922; 93925; 93970

== ENCOUNTER 2019-09-27 06:33 | Outpatient (CLI) | payer OTHER, MEDICARE ==
[2019-09-27] VITALS (7 sets, daily range): BP systolic 142–187; BP diastolic 74–97
[~2019-09-27] VITALS: Ht 193 cm; Wt 149.7 kg
[2019-09-27 07:44] LABS: BASO # 0.1 x10^3/uL (0.0-0.2); BASO % 1 % (0-3); EOS # 0.2 x10^3/uL (0.0-0.7); EOS % 2 % (0-3); HEMATOCRIT 32.1 % (39.0-53.0); HEMOGLOBIN 10.6 g/dL (13.0-17.5); LYMPH # 1.4 x10^3/uL (1.0-4.8); LYMPH % 17 % (24-48); MEAN CORPUSCULAR HEMOGLOBIN 31 pg (25-35); MEAN CORPUSCULAR HGB CONC 33 g/dL (31-37); MEAN CORPUSCULAR VOLUME 93 fL (79-100); MONO # 0.4 x10^3/uL (0.0-1.1); MONO % 5 % (0-9); NEUT # 6.1 x10^3/uL (1.8-7.7); NEUT % 76 % (31-73); PLATELET COUNT 269 x10^3/uL (140-400); RED BLOOD COUNT 3.47 x10^6/uL (4.30-5.70); WHITE BLOOD COUNT 8.1 x10^3/uL (4.0-11.0)
[2019-09-27 07:52] LABS: PROTHROMBIN TIME PATIENT 15.1 SEC (11.7-14.0)
[2019-09-27 07:54] LABS: CALCIUM 9.2 mg/dL (8.5-10.1); GFR 6.8; POTASSIUM 4.5 mmol/L (3.5-5.1)
[2019-09-27] MEDS ORDERED: LIDOCAINE WITH 8.4% SOD BICARB 3 ML DISP.SYRIN. ONE (08:04)
[2019-09-27] MEDS ORDERED: IODIXANOL 320 MG/ML 100 ML VIAL. ONE (08:04)
[2019-09-27] MEDS ORDERED: INSU100I13 SQ (08:47)
[2019-09-27] MEDS ORDERED: INSU100V6 SQ (08:47)
[2019-09-27] MEDS ORDERED: MIDAZOLAM HCL/PF 2 MG/2 ML VIAL. ONE (08:57)
[2019-09-27] MEDS ORDERED: fentaNYL PF VIAL 100 MCG/2 ML VIAL ONE (08:57)
[2019-09-27] MEDS ORDERED: HEPARIN for IV BOLUS 10,000 UNIT/10 ML VIAL. ONE (08:57)
[2019-09-27] MEDS ORDERED: LIDOCAINE WITH 8.4% SOD BICARB 3 ML DISP.SYRIN. IJ ONE (09:15)
[2019-09-27] MEDS ORDERED: IODIXANOL 320 MG/ML 100 ML VIAL. IART ONE (09:15)
[2019-09-27] MEDS ORDERED: MIDAZOLAM HCL/PF 2 MG/2 ML VIAL. IV ONE (09:15)
[2019-09-27] MEDS ORDERED: HEPARIN for IV BOLUS 10,000 UNIT/10 ML VIAL. IV ONE (09:15)
[2019-09-27] MEDS ORDERED: fentaNYL PF VIAL 100 MCG/2 ML VIAL IV ONE (09:15)
--- NOTE | 2019-09-27 12:46 | NUR ---
Discharge Note: ELENITA SHEPHERD Discharge instructions and discharge home medications reviewed with Patient and and a copy given. All questions have been answered and understanding verbalized. The following instructions and handouts were given: Moderate sedation, Shunt Malfunction, Incision care. Discontinued lines and drains: Right IV dc'd with tip intact. Patient discharged to home with via personal vehicle.
--- NOTE | 2019-09-29 08:24 | RAD ---
09/29/2019 6:18 AM Procedure: 1. Left upper extremity fistulogram 2. Balloon angioplasty, outflow vein stenosis. 3. Balloon angioplasty central venous stenosis, left subclavian vein Clinical Indication: Prolonged bleeding. Poor flow rates. Discussion: The procedure was explained in its entirety to the patient or the patients designated sales representative health insurance by a member of the treatment team, including a discussion of the risks, benefits and commonly accepted alternatives to the procedure, as well as the expected consequences of no therapy whatsoever. Discussion of the risks included, but was not limited to, those that are most frequent and those that are rare but possibly severe or life-threatening, as well as the possibility of unforeseen complications. All elements of maximal sterile barrier technique including the use of a cap, mask, sterile gown, sterile gloves, large sterile sheet, appropriate hand hygiene, and 2% chlorhexidine for cutaneous antisepsis (or acceptable alternative antiseptic per current guidelines) were followed for this procedure. Left upper shotty fistulogram was evaluated by ultrasound found to be grossly patent. An area of outflow vein stenosis is identified. The proximal outflow vein was accessed, directed towards venous outflow, under direct ultrasound guidance using micropuncture technique. Reference ultrasound images were saved the medical record. Fistulograms were obtained demonstrating moderate to severe outflow vein stenosis. The overall fistula diameter is large however. A weblike stenosis in the left subclavian vein is also seen. Balloon angioplasty of the outflow vein was performed superiorly again 8 mm, up to 12 mm. This resulted in improved morphology and flow, with some persistent relative narrowing. Balloon angioplasty of the subclavian vein was performed up to 10 mm which appeared to resolve focal metabolic stenosis. Contrast was refluxed across the arterial anastomosis which was patent. The sheath was removed over pursestring suture and sterile dressings were applied. Total fluoroscopy time: 8.1 min Dose area product: 74 Gycm2 The procedures performed under conscious sedation including continuous cardiopulmonary monitoring via dedicated sedation nurse. [id number] sedation time: 58 Impression: Proximal outflow vein stenosis, and left subclavian vein stenosis treated with balloon angioplasty as described
== END 2019-09-27 11:25 | disposition home or self-care (01) ==
LOC: INTRAD 06:33
PROVIDERS: ATTEND Nurse Practitioner Adult Health
DX: T82.858A Stenosis of other vascular prosthetic devices, implants and grafts, initial encounter (principal); Y83.8 Other surgical procedures as the cause of abnormal reaction of the patient, or of later complication, without mention of misadventure at the time of the procedure; Y92.89 Other specified places as the place of occurrence of the external cause; Z79.01 Long term (current) use of anticoagulants
CPT/HCPCS: 36415; 36901; 36907; 80048; 85025; 85610; 99152; 99153; C1725; C1769; C1892; C1894; J1644; J2250; J3010; J3490; Q9967

== ENCOUNTER → 2019-10-13 | Outpatient (CLI) | payer OTHER, MEDICARE ==
[2019-09-27 11:10] VITALS: BP 187/97
--- NOTE | 2019-10-13 12:27 | RAD ---
EXAM: FOOT RIGHT 3V 10/13/2019 12:00 AM CLINICAL INDICATION:Right heel diabetic wound COMPARISON:None TECHNIQUE:3 views of the right foot FINDINGS:No acute fracture. No osseous destruction. Bone mineralization is normal. Mild joint space narrowing at the great toe MTP joint. There are plantar and Achilles insertion calcaneal enthesophytes. No focal soft tissue abnormality. IMPRESSION:No radiographic evidence of osteomyelitis. No soft tissue gas. Electronically signed by: Laverne Estrada MD (10/13/2019 12:24 PM) [id number]
== END | disposition home or self-care (01) ==
LOC: RAD 08:46
PROVIDERS: ATTEND Emergency Medicine Undersea and Hyperbaric Medicine
DX: S91.301A Unspecified open wound, right foot, initial encounter (principal); M77.31 Calcaneal spur, right foot; M77.8 Other enthesopathies, not elsewhere classified; X58.XXXA Exposure to other specified factors, initial encounter; Y93.89 Activity, other specified; Y92.89 Other specified places as the place of occurrence of the external cause; Y99.8 Other external cause status
CPT/HCPCS: 73630

== ENCOUNTER 2019-10-23 05:38 | Inpatient (IN) | payer MEDICARE, OTHER ==
[~2019-10-23] VITALS: Ht 193 cm; Wt 155.0 kg
[2019-10-23 06:24] LABS: BASO # 0.1 x10^3/uL (0.0-0.2); BASO % 1 % (0-3); EOS # 0.2 x10^3/uL (0.0-0.7); EOS % 3 % (0-3); HEMATOCRIT 34.2 % (39.0-53.0); HEMOGLOBIN 11.3 g/dL (13.0-17.5); LYMPH # 1.1 x10^3/uL (1.0-4.8); LYMPH % 15 % (24-48); MEAN CORPUSCULAR HEMOGLOBIN 31 pg (25-35); MEAN CORPUSCULAR HGB CONC 33 g/dL (31-37); MEAN CORPUSCULAR VOLUME 94 fL (79-100); MONO # 0.5 x10^3/uL (0.0-1.1); MONO % 6 % (0-9); NEUT # 5.6 x10^3/uL (1.8-7.7); NEUT % 75 % (31-73); PLATELET COUNT 235 x10^3/uL (140-400); RED BLOOD COUNT 3.63 x10^6/uL (4.30-5.70); RED CELL DISTRIBUTION WIDTH 19.7 % (11.5-14.5); WHITE BLOOD COUNT 7.5 x10^3/uL (4.0-11.0)
[2019-10-23 06:28] LABS: CALCIUM 9.3 mg/dL (8.5-10.1); CREATININE 8.8 mg/dL (0.7-1.3); GFR 6.1
[2019-10-23 06:34] LABS: ALBUMIN 3.1 g/dL (3.4-5.0); ALBUMIN/GLOBULIN RATIO 0.6 (1.0-1.7); TOTAL BILIRUBIN 0.4 mg/dL (0.2-1.0); TOTAL PROTEIN 8.3 g/dL (6.4-8.2)
--- NOTE | 2019-10-23 06:50 | RAD ---
AP chest. HISTORY: Short of breath AP view was taken of the chest. Heart is upper normal in size. There are no confluent infiltrates. Mild vascular congestion is possible. Patient's not taken a deep inspiration. There is no effusion. IMPRESSION: 1. No confluent areas of infiltrate. 2. Mild vascular congestion. Electronically signed by: Solo Zaragoza MD (10/23/2019 6:46 AM) [id number]
[2019-10-23] MEDS ORDERED: INSULIN REGULAR 100 UNIT/ML 3ML VIAL. SQ ONE (07:00)
[2019-10-23] MEDS ORDERED: ENALAPRILAT 1.25 MG/ML VIAL. IVP ONE (07:00)
--- NOTE | 2019-10-23 07:03 | PHYS DOC ---
Past Medical History Past Medical History: Diabetes-Type II, DVT, Renal Failure, Other Additional Past Medical Histor: neuropathy, PE Past Surgical History: Other Additional Past Surgical Histo: colon resection, L upper arm fistula, L UPPER ARM FISTULA REPAIR 09/27/19 Smoking Status: Former Smoker Alcohol Use: Rarely Drug Use: None General Adult EDM: Chief Complaint: SHORTNESS OF BREATH HPI: HPI: Patient is a 64 year old male who presents to the ED with a chief complaint of shortness of breath. Patient states that the symptoms and present for the last 2 weeks. Patient does state that she has a history of diabetes, hypertension, end-stage renal disease on dialysis, and DVT in lower extremities on Coumadin. Patient also states that he has a [place] filter. Patient does not use oxygen at home. Patient denies chest pain, fever, chills. Patient does state that he has a chronic cough. Patient's dialysis is Thursday, Thursday and Thursday. Patient states that he did not miss any recent dialysis appointments. Review of Systems: Review of Systems: Constitutional: Denies fever or chills. [] Eyes: Denies change in visual acuity. [] HENT: Denies nasal congestion or sore throat. [] Respiratory: Complains of chronic cough and shortness of breath [] Cardiovascular: Denies chest pain or edema. [] GI: Denies abdominal pain, nausea, vomiting, bloody stools or diarrhea. [] : Denies dysuria. [] Musculoskeletal: Complains of chronic venous stasis ulceration in both legs Heart Score: Risk Factors: Risk Factors: DM, Current or recent (<one month) smoker, HTN, HLP, family history of CAD, obesity. Risk Scores: Score 0 - 3: 2.5% MACE over next 6 weeks - Discharge Home Score 4 - 6: 20.3% MACE over next 6 weeks - Admit for Clinical Observation Score 7 - 10: 72.7% MACE over next 6 weeks - Early Invasive Strategies Current Medications: Current Medications Medications (Trade) Dose Ordered Sig/Cristian Start Time Stop Time Status Last Admin Dose Admin Enalaprilat (Vasotec Inj) 0.625 mg 1X ONCE 10/23/19 07:00 10/23/19 07:01 Insulin Human Regular (HumuLIN R VIAL) 10 unit 1X ONCE 10/23/19 07:00 10/23/19 07:01 Allergies: Allergies: Allergies Coded Allergies Type Severity Reaction Last Updated Verified No Known Drug Allergies 09/27/19 No Physical Exam: PE: Constitutional: Well developed, well nourished, no acute distress, non-toxic appearance. [] HENT: Normocephalic, atraumatic Eyes: EOMI Neck: Normal range of motion Cardiovascular:Heart rate regular rhythm Lungs & Thorax: Bilateral rails [] Abdomen: Bowel sounds normal, soft, no tenderness Extremities: No tenderness, ROM intact, bilateral lower extremity venous stasis ulceration Neurologic: Alert and oriented X 3 Current Patient Data: Labs: Laboratory Tests Test 10/23/19 06:00 White Blood Count 7.5 x10^3/uL (4.0-11.0) Red Blood Count 3.63 x10^6/uL (4.30-5.70) L Hemoglobin 11.3 g/dL (13.0-17.5) L Hematocrit 34.2 % (39.0-53.0) L Mean Corpuscular Volume 94 fL (79-100) Mean Corpuscular Hemoglobin 31 pg (25-35) Mean Corpuscular Hemoglobin Concent 33 g/dL (31-37) Red Cell Distribution Width 19.7 % (11.5-14.5) H Platelet Count 235 x10^3/uL (140-400) Neutrophils (%) (Auto) 75 % (31-73) H Lymphocytes (%) (Auto) 15 % (24-48) L Monocytes (%) (Auto) 6 % (0-9) Eosinophils (%) (Auto) 3 % (0-3) Basophils (%) (Auto) 1 % (0-3) Neutrophils # (Auto) 5.6 x10^3/uL (1.8-7.7) Lymphocytes # (Auto) 1.1 x10^3/uL (1.0-4.8) Monocytes # (Auto) 0.5 x10^3/uL (0.0-1.1) Eosinophils # (Auto) 0.2 x10^3/uL (0.0-0.7) Basophils # (Auto) 0.1 x10^3/uL (0.0-0.2) Sodium Level 132 mmol/L (136-145) L Potassium Level 5.0 mmol/L (3.5-5.1) Chloride Level 93 mmol/L (98-107) L Carbon Dioxide Level 29 mmol/L (21-32) Anion Gap 10 (6-14) Blood Urea Nitrogen 53 mg/dL (8-26) H Creatinine 8.8 mg/dL (0.7-1.3) H Estimated GFR (Cockcroft-Gault) 6.1 BUN/Creatinine Ratio 6 (6-20) Glucose Level 468 mg/dL (70-99) H Calcium Level 9.3 mg/dL (8.5-10.1) Total Bilirubin 0.4 mg/dL (0.2-1.0) Aspartate Amino Transferase (AST) 32 U/L (15-37) Alanine Aminotransferase (ALT) 46 U/L (16-63) Alkaline Phosphatase 100 U/L (46-116) Troponin I Quantitative 0.019 ng/mL (0.000-0.055) VG-Iyq-E-Type Natriuretic Peptide 81394 pg/mL (0-124) H Total Protein 8.3 g/dL (6.4-8.2) H Albumin 3.1 g/dL (3.4-5.0) L Albumin/Globulin Ratio 0.6 (1.0-1.7) L Laboratory Tests 10/23/19 06:00 Laboratory Tests 10/23/19 06:00 Vital Signs: Vital Signs Date Time Temp Pulse Resp B/P (MAP) Pulse Ox O2 Delivery O2 Flow Rate FiO2 10/23/19 06:19 85 18 193/88 (123) 94 Nasal Cannula 2.0 10/23/19 05:46 98.4 98.4 EKG: EKG: EKG interpretation: 7: 28 AM on 10/23/2019 HR: 90 Sinus rhythm Regular intervals Left axis deviation Right bundle branch block Nonspecific ST changes Radiology/Procedures: Radiology/Procedures: [] Impression: CXR IMPRESSION: 1. No confluent areas of infiltrate. 2. Mild vascular congestion. Course & Med Decision Making: Course & Med Decision Making Pertinent Labs and Imaging studies reviewed. (See chart for details) Ordered labs, chest x-ray, EKG, troponin, BNP. Chest x-ray shows vascular congestion. BNP is elevated at 16,991 Troponin is 0.019. Patient does not have leukocytosis. Blood pressure is 193/90 Blood glucose was 453 Patient is given Vasotec and insulin Will order Lasix. Patient oxygenation on room air is 87%. Patient does not wear oxygen at home. Patient will need to be admitted for CHF exacerbation. We will discuss case with hospitalist service. Discussed results and plan of care with patient and family. I discussed case with Dr. Hutchinson who accepts admission. Jonna Disclaimer: Dragon Disclaimer: This electronic medical record was generated, in whole or in part, using a voice recognition dictation system. Departure Departure Impression: Primary Impression: CHF exacerbation Disposition: ADMITTED INPATIENT Admitting Physician: DAMION Condition: IMPROVED Referrals: HIGINIO WISE MD (PCP) Justicifation of Admission Dx: Justifications for Admission: Justification of Admission Dx: Yes CHF: Cardiac Arrhythmias ROSEMARY MIRZA DO Oct 23, 2019 07:03
--- NOTE | 2019-10-23 07:40 | PDOC1 ---
History and Physical Date of Admission Date of Admission DATE: 10/23/19 TIME: 07:37 Identification/Chief Complaint Chief Complaint Shortness of breath Source Source: Patient History of Present Illness History of Present Illness Mr Denny is a 64 yo M w/ PMHx ESRD on HD, morbid obesity, HTN, HLD, prior DVT and PE 2010 s/p IVF and coumadin therapy, former smoker, DM2, chronic LE wounds, anemia who c/o shortness of breath. He does have chronic diarrhea after having colon surgery 5 years ago. Denies any headache or visual symptoms. Patient states that the symptoms and present for the last 2 weeks. Cannot even walk 10 feet. Has never been on O2 previously, but desaturates below 87% during my examination. BP 238/109. Patient denies chest pain, fever, chills. Patient does state that he has a chronic cough. Patient's dialysis is Thursday, Thursday and Thursday. Patient states that he did not miss any recent dialysis appointments, but has been having difficulty with flow and has not been hitting his dry weight goal, which is 148kg. Last A1c was "6-something". He does not monitor his INR outpatient. On 09/27/2019 he underwent LUE fistulogram: Proximal outflow vein stenosis, and left subclavian vein stenosis treated with balloon angioplasty. He has been sleeping in his olpe navigator because he does not have air- conditioning in his home. CXR with vascular congestion. EKG: Sinus rhythm, 90BPM with regular intervals, some left axis deviation, RBBB, non-specific ST changes. Labs with Na 132, K 5, BUN 53, Cr 8.8, Glucose 468, Albumin 3.1, WBC 7.5, Hb 11.3, platelets 235. BNP 97886, Trop 0.019. Admitted for further treatment. Past Medical History Cardiovascular: HTN, Hyperlipidemia Pulmonary: COPD, Other GI: Other Renal/: Chronic renal insuff Endocrine: Diabetes Past Surgical History Past Surgical History: Colectomy, Colon Resection, Other Family History Family History: Cancer, Diabetes, Hypertension Social History Smoke: No ALCOHOL: none Drugs: None Current Medications Current Medications Current Medications Enalaprilat (Vasotec Inj) 0.625 mg 1X ONCE IVP ; Start 10/23/19 at 07:00; Stop 10/23/19 at 07:02; Status DC Insulin Human Regular (HumuLIN R VIAL) 10 unit 1X ONCE SQ ; Start 10/23/19 at 07:00; Stop 10/23/19 at 07:02; Status DC Active Scripts Active Thera-M Tablet (Multivits,Ca,Minerals/Iron/Fa) 1 Each Tablet 1 Tab PO DAILY 30 Days Vitamin C (Ascorbic Acid) 500 Mg Tablet 500 Mg PO DAILY 30 Days Zofran Odt (Ondansetron) 4 Mg Tab.rapdis 4 Mg PO BID PRN Reported Humalog (Insulin Lispro) 100 Unit/1 Ml Vial 60 Unit SQ DAILYWSUP Lantus Solostar (Insulin Glargine,Hum.rec.anlog) 100 Unit/1 Ml Insuln.pen 35 Unit SQ BIDAC PRN Aspirin 81 Mg Tab.chew 1 Tab PO DAILY Acetaminophen 500 Mg Tablet 1 Tab PO BID PRN Renal Vitamin Tablet (Folic Acid/Vit Bcomp,C) 0.8 Mg Tablet 0.8 Mg PO DAILY Humalog (Insulin Lispro) 100 Unit/1 Ml Insuln.pen 50 Unit SQ BIDACBL Warfarin Sodium 5 Mg Tablet 5 Mg PO DAILY Allergies Allergies: Coded Allergies: No Known Drug Allergies (Unverified , 09/27/19) ROS General: YES: Fatigue, Malaise; No: Chills, Night Sweats, Appetite, Other PSYCHOLOGICAL ROS: No: Anxiety, Behavioral Disorder, Concentration difficultie, Decreased libido, Depression, Disorientation, Hallucinations, Hostility, Irritablity, Memory difficulties, Mood Swings, Obsessive thoughts, Physical abuse, Sexual abuse, Sleep disturbances, Suicidal ideation, Other Eyes: No Blurry vision, No Decreased vision, No Double vision, No Dry eyes, No Excessive tearing, No Eye Pain, No Itchy Eyes, No Loss of vision, No Photophobia, No Scotomata, No Uses contacts, No Uses glasses, No Other HEENT: No: Heacaches, Visual Changes, Hearing change, Nasal congestion, Nasal discharge, Oral lesions, Sinus pain, Sore Throat, Epistaxis, Sneezing, Snoring, Tinnitus, Vertigo, Vocal changes, Other ALLERGY AND IMMUNOLOGY: No: Hives, Insect Bite Sensitivity, Itchy/Watery Eyes, Nasal Congestion, Post Nasal Drip, Seasonal Allergies, Other Hematological and Lymphatic: YES: Blood Clots, Blood Transfusions; No: Bleeding Problems, Brusing, Night Sweats, Pallor, Swollen Lymph Nodes, Other ENDOCRINE: No: Breast Changes, Galactorrhea, Hair Pattern Changes, Hot Flashes, Malaise/lethargy, Mood Swings, Palpitations, Polydipsia/polyuria, Skin Changes, Temperature Intolerance, Unexpected Weight Changes, Other Breast: No New/Changing Breast Lumps, No Nipple changes, No Nipple discharge, No Other Respiratory: YES: Orthopnea, Shortness of breath, SOB with excertion, Tachypnea ; No: Cough, Hemoptysis, Pleuritic Pain, Sputum Changes, Stridor, Wheezing, Other Cardiovascular: yes Orthopnea, yes Paroxysmal Noc. Dyspnea; No Chest Pain, No Palpitations, No Edema, No Lt Headedness, No Other Gastrointestinal: No Nausea, No Vomiting, No Abdominal Pain, No Diarrhea, No Constipation, No Melena, No Hematochezia, No Other Genitourinary: No Dysuria, No Frequency, No Incontinence, No Hematuria, No Retention, No Discharge, No Urgency, No Pain, No Flank Pain, No Other, No , No , No , No , No , No , No Musculoskeletal: Yes Muscular Weakness; No Gait Disturbance, No Joint Pain, No Joint Stiffness, No Joint Swelling, No Muscle Pain, No Pain In:, No Swelling In:, No Other Neurological: No Behavorial Changes, No Bowel/Bladder ControlChng, No Confusion, No Dizziness, No Gait Disturbance, No Headaches, No Impaired Coord/balance, No Memory Loss, No Numbness/Tingling, No Seizures, No Speech Problems, No Tremors, No Visual Changes, No Weakness, No Other Skin: Yes Dry Skin, Yes Rash, Yes Skin Lesion Changes; No Eczema, No Hair Changes, No Lumps, No Mole Changes, No Mottling, No Nail Changes, No Pruritus, No Other, No Acne Physical Exam General: Alert, Oriented X3, Cooperative, No acute distress HEENT: Atraumatic, PERRLA, EOMI, Mucous membr. moist/pink Lungs: Other (Bibasilar crackles) Heart: S1S2, RRR, no thrills, no rubs, no gallops, no murmurs Abdomen: Normal bowel sounds, Soft, No tenderness, No hepatosplenomegaly, No masses, Other (Reducible abdominal wall hernia) Rectal Exam: not examined Extremities: No clubbing, No cyanosis, Normal pulses, No tenderness/swelling Skin: Other (Right heel ulcer, bilateral breen ulcers and venous stasis derm atitis) Neuro: Normal gait, Normal speech, Strength at 5/5 X4 ext, Normal tone, Sensation intact, Cranial nerves 3-12 NL, Reflexes 2+ Psych/Mental Status: Mental status NL, Mood NL Vitals Vitals Vital Signs Date Time Temp Pulse Resp B/P (MAP) Pulse Ox O2 Delivery O2 Flow Rate FiO2 10/23/19 06:19 85 18 193/88 (123) 94 Nasal Cannula 2.0 10/23/19 05:46 98.4 98.4 Labs Labs Laboratory Tests Test 10/23/19 06:00 White Blood Count 7.5 x10^3/uL (4.0-11.0) Red Blood Count 3.63 x10^6/uL (4.30-5.70) Hemoglobin 11.3 g/dL (13.0-17.5) Hematocrit 34.2 % (39.0-53.0) Mean Corpuscular Volume 94 fL (79-100) Mean Corpuscular Hemoglobin 31 pg (25-35) Mean Corpuscular Hemoglobin Concent 33 g/dL (31-37) Red Cell Distribution Width 19.7 % (11.5-14.5) Platelet Count 235 x10^3/uL (140-400) Neutrophils (%) (Auto) 75 % (31-73) Lymphocytes (%) (Auto) 15 % (24-48) Monocytes (%) (Auto) 6 % (0-9) Eosinophils (%) (Auto) 3 % (0-3) Basophils (%) (Auto) 1 % (0-3) Neutrophils # (Auto) 5.6 x10^3/uL (1.8-7.7) Lymphocytes # (Auto) 1.1 x10^3/uL (1.0-4.8) Monocytes # (Auto) 0.5 x10^3/uL (0.0-1.1) Eosinophils # (Auto) 0.2 x10^3/uL (0.0-0.7) Basophils # (Auto) 0.1 x10^3/uL (0.0-0.2) Sodium Level 132 mmol/L (136-145) Potassium Level 5.0 mmol/L (3.5-5.1) Chloride Level 93 mmol/L (98-107) Carbon Dioxide Level 29 mmol/L (21-32) Anion Gap 10 (6-14) Blood Urea Nitrogen 53 mg/dL (8-26) Creatinine 8.8 mg/dL (0.7-1.3) Estimated GFR (Cockcroft-Gault) 6.1 BUN/Creatinine Ratio 6 (6-20) Glucose Level 468 mg/dL (70-99) Calcium Level 9.3 mg/dL (8.5-10.1) Total Bilirubin 0.4 mg/dL (0.2-1.0) Aspartate Amino Transf (AST/SGOT) 32 U/L (15-37) Alanine Aminotransferase (ALT/SGPT) 46 U/L (16-63) Alkaline Phosphatase 100 U/L (46-116) Troponin I Quantitative 0.019 ng/mL (0.000-0.055) UY-Oof-Q-Type Natriuretic Peptide 65658 pg/mL (0-124) Total Protein 8.3 g/dL (6.4-8.2) Albumin 3.1 g/dL (3.4-5.0) Albumin/Globulin Ratio 0.6 (1.0-1.7) Laboratory Tests Test 10/23/19 06:00 White Blood Count 7.5 x10^3/uL (4.0-11.0) Red Blood Count 3.63 x10^6/uL (4.30-5.70) Hemoglobin 11.3 g/dL (13.0-17.5) Hematocrit 34.2 % (39.0-53.0) Mean Corpuscular Volume 94 fL (79-100) Mean Corpuscular Hemoglobin 31 pg (25-35) Mean Corpuscular Hemoglobin Concent 33 g/dL (31-37) Red Cell Distribution Width 19.7 % (11.5-14.5) Platelet Count 235 x10^3/uL (140-400) Neutrophils (%) (Auto) 75 % (31-73) Lymphocytes (%) (Auto) 15 % (24-48) Monocytes (%) (Auto) 6 % (0-9) Eosinophils (%) (Auto) 3 % (0-3) Basophils (%) (Auto) 1 % (0-3) Neutrophils # (Auto) 5.6 x10^3/uL (1.8-7.7) Lymphocytes # (Auto) 1.1 x10^3/uL (1.0-4.8) Monocytes # (Auto) 0.5 x10^3/uL (0.0-1.1) Eosinophils # (Auto) 0.2 x10^3/uL (0.0-0.7) Basophils # (Auto) 0.1 x10^3/uL (0.0-0.2) Sodium Level 132 mmol/L (136-145) Potassium Level 5.0 mmol/L (3.5-5.1) Chloride Level 93 mmol/L (98-107) Carbon Dioxide Level 29 mmol/L (21-32) Anion Gap 10 (6-14) Blood Urea Nitrogen 53 mg/dL (8-26) Creatinine 8.8 mg/dL (0.7-1.3) Estimated GFR (Cockcroft-Gault) 6.1 BUN/Creatinine Ratio 6 (6-20) Glucose Level 468 mg/dL (70-99) Calcium Level 9.3 mg/dL (8.5-10.1) Total Bilirubin 0.4 mg/dL (0.2-1.0) Aspartate Amino Transf (AST/SGOT) 32 U/L (15-37) Alanine Aminotransferase (ALT/SGPT) 46 U/L (16-63) Alkaline Phosphatase 100 U/L (46-116) Troponin I Quantitative 0.019 ng/mL (0.000-0.055) OR-Ppa-P-Type Natriuretic Peptide 65359 pg/mL (0-124) Total Protein 8.3 g/dL (6.4-8.2) Albumin 3.1 g/dL (3.4-5.0) Albumin/Globulin Ratio 0.6 (1.0-1.7) Images Images CXR: AP view was taken of the chest. Heart is upper normal in size. There are no confluent infiltrates. Mild vascular congestion is possible. Patient's not taken a deep inspiration. There is no effusion. IMPRESSION: 1. No confluent areas of infiltrate. 2. Mild vascular congestion. VTE Prophylaxis Ordered VTE Prophylaxis Devices: No VTE Pharmacological Prophylaxi: Yes Assessment/Plan Assessment/Plan A/P: Shortness of breath - acute pulmonary edema, possibly diastolic CHF, but he does not recall cardiac history, will check echocardiogram, will consult nephrology for ultrafiltration. PFTs previously normal Acute hypoxic respiratory failure - likely from pulmonary edema from fluid overload, no known CHF history, no recent sick contacts or concern for pneumonia. Will ask nephrology for assistance with ultrafiltration. Wean O2 as tolerated HTN urgency/emergency - Will add labetalol IV, restart home medications. Chronic lower extremity ulcers, bilateral Right heel ulcer - diabetic ulcer, wound care to see Abnormal CXR - likely fluid overload. Will need ultrafiltration Elevated troponin - very minimally elevated. If continues to elevate may need to consult cardiology. Likely this is demand ischemia from fluid overload. Normal cardiac stress End-stage renal disease, on hemodialysis - MWF. Diabetes - type II, sees endocrinology outpatient on 35u Lantus BID, 50u lispro ac breakfast and lunch and 60u Qpm with dinner. Will keep on his home regimen Hypertension - as above, not controlled. Does not have a home BP cuff Obesity - counseled on weight loss, diet, exercise. Chronic diarrhea - will add psyllium. May need cholestyramine or immodium as well Anemia - of chronic renal disease, prior transfusions, on iron therapy FEN - ADA renal diet PPX - coumadin FULL CODE Dispo - inpatient for above Justicifation of Admission Dx: Justifications for Admission: Justification of Admission Dx: Yes ALEX ARENAS MD Oct 23, 2019 07:40
[2019-10-23] MEDS ORDERED: FUROSEMIDE 40 MG/4 ML VIAL. IVP ONE (08:30)
[2019-10-23] MEDS ORDERED: DEXTROSE 50% 25 GM / 50ML DISP.SYRIN. IV PRN (09:00)
[2019-10-23] MEDS ORDERED: ONDANSETRON PF 4 MG/2 ML VIAL. IV PRN (09:00)
[2019-10-23] MEDS ORDERED: ACETAMINOPHEN 325 MG TABLET. PO PRN (09:00)
[2019-10-23] MEDS ORDERED: ONDANSETRON ODT 4 MG TAB.RAPDIS. PO PRN (09:15)
[2019-10-23 10:46] LABS: PROTHROMBIN TIME PATIENT 28.3 SEC (11.7-14.0)
[2019-10-23 10:57] VITALS: BP 230/107
[2019-10-23] MEDS: ASPIRIN CHEWABLE 81 MG TABLET. PO SCH (11:16)
[2019-10-23] MEDS: ASCORBIC ACID 500 MG TABLET PO SCH (11:16)
[2019-10-23] MEDS: FOLIC/VIT B COMP W-C (RENAL) TABLET. PO SCH (11:16)
[2019-10-23] MEDS: LABETALOL 20 MG/4 ML DISP.SYRIN. IVP PRN (11:24)
[2019-10-23] MEDS: INSULIN LISPRO 300 UNITS/3 ML VIAL. SQ SCH ×5 (12:00→17:19)
[2019-10-23 12:50] VITALS: BP 176/82
[2019-10-23] MEDS: CALCIUM CARBONATE 500 MG TAB.CHEW PO SCH ×2 (12:51→17:12)
[2019-10-23 15:13] VITALS: BP 206/91
[2019-10-23 16:14] VITALS: BP 160/80
[2019-10-23] MEDS: WARFARIN 5 MG TABLET. PO SCH (17:12)
[2019-10-23] MEDS: INSULIN GLARGINE SYRINGE. SQ SCH (17:18)
[2019-10-23 19:00] VITALS: BP 183/82
[2019-10-23] MEDS: PSYLLIUM HUSK (SUGAR FREE) 1 PKT PACKET PO SCH (21:11)
[2019-10-23 23:00] VITALS: BP 170/83
[2019-10-24] VITALS (8 sets, daily range): BP systolic 151–220; BP diastolic 67–99
[2019-10-24] MEDS: LABETALOL 20 MG/4 ML DISP.SYRIN. IVP PRN (03:16)
[2019-10-24 03:28] LABS: CALCIUM 9.1 mg/dL (8.5-10.1); CREATININE 10.2 mg/dL (0.7-1.3); GFR 5.2; POTASSIUM 4.9 mmol/L (3.5-5.1)
[2019-10-24 04:37] LABS: BASO # 0.1 x10^3/uL (0.0-0.2); BASO % 1 % (0-3); EOS # 0.3 x10^3/uL (0.0-0.7); EOS % 3 % (0-3); HEMATOCRIT 33.4 % (39.0-53.0); HEMOGLOBIN 10.9 g/dL (13.0-17.5); LYMPH # 1.5 x10^3/uL (1.0-4.8); LYMPH % 14 % (24-48); MEAN CORPUSCULAR HEMOGLOBIN 31 pg (25-35); MEAN CORPUSCULAR HGB CONC 33 g/dL (31-37); MEAN CORPUSCULAR VOLUME 94 fL (79-100); MONO # 0.5 x10^3/uL (0.0-1.1); MONO % 5 % (0-9); NEUT # 8.6 x10^3/uL (1.8-7.7); NEUT % 78 % (31-73); PLATELET COUNT 242 x10^3/uL (140-400); RED BLOOD COUNT 3.54 x10^6/uL (4.30-5.70); RED CELL DISTRIBUTION WIDTH 19.2 % (11.5-14.5)
[2019-10-24 05:05] LABS: PROTHROMBIN TIME PATIENT 27.9 SEC (11.7-14.0)
[2019-10-24] MEDS: INSULIN LISPRO 300 UNITS/3 ML VIAL. SQ SCH ×7 (07:30→18:38)
[2019-10-24] MEDS ORDERED: IV NORMAL SALINE 1000ML BAG 1,000 ML IV PRN ×2 (08:39)
[2019-10-24] MEDS ORDERED: DIALYSIS PATIENT. MC PRN ×2 (08:45)
[2019-10-24] MEDS: INSULIN GLARGINE SYRINGE. SQ SCH ×2 (08:50→18:39)
[2019-10-24] MEDS: CALCIUM CARBONATE 500 MG TAB.CHEW PO SCH ×3 (09:00→18:23)
--- NOTE | 2019-10-24 09:28 | PDOC ---
PROGRESS NOTES History of Present Illness History of Present Illness IMPRESSION: 1. No confluent areas of infiltrate. 2. Mild vascular congestion. VTE Prophylaxis Ordered VTE Prophylaxis Devices: No VTE Pharmacological Prophylaxi: Yes IMPRESSION Shortness of breath - acute pulmonary edema, possibly diastolic CHF, but he does not recall cardiac history, will check echocardiogram, will consult nephrology for ultrafiltration. PFTs previously normal echo 10/23 Ejection Fraction is 55-60%. normal LV segmental wall motion Acute hypoxic respiratory failure - likely from pulmonary edema from fluid overload, no known CHF history, no recent sick contacts or concern for pneumonia. Will ask nephrology for assistance with ultrafiltration. Wean O2 as tolerated HTN urgency/emergency - Will add labetalol IV, restart home medications. Chronic lower extremity ulcers, bilateral Right heel ulcer - diabetic ulcer, wound care to see Abnormal CXR - likely fluid overload. Will need ultrafiltration Elevated troponin - very minimally elevated. If continues to elevate may need to consult cardiology. Likely this is demand ischemia from fluid overload. Normal cardiac stress End-stage renal disease, on hemodialysis - MWF. Diabetes - type II, sees endocrinology outpatient on 35u Lantus BID, 50u lispro ac breakfast and lunch and 60u Qpm with dinner. Will keep on his home regimen Hypertension - as above, not controlled. Does not have a home BP cuff Obesity - counseled on weight loss, diet, exercise. Chronic diarrhea - will add psyllium. May need cholestyramine or immodium as well Anemia - of chronic renal disease, prior transfusions, on iron therapy FEN - ADA renal diet PPX - coumadin FULL CODE Dispo - inpatient for above d/w RN Justicifation of Admission Dx: Justicifation of Admission Dx: Justifications for Admission: Justification of Admission Dx: Yes Vitals Vitals Vital Signs Date Time Temp Pulse Resp B/P (MAP) Pulse Ox O2 Delivery O2 Flow Rate FiO2 10/24/19 07:00 97.8 82 20 162/78 (106) 93 Nasal Cannula 2.0 97.8 Physical Exam General: Alert, Oriented X3, Cooperative, No acute distress Lungs: Clear, Crackles Abdomen: Normal bowel sounds, Soft, No tenderness, No hepatosplenomegaly, No masses, Other (Reducible abdominal wall hernia) Extremities: No clubbing, No cyanosis, Normal pulses, No tenderness/swelling Skin: Other (Right heel ulcer, bilateral breen ulcers and venous stasis dermatitis) Labs LABS EXAM: Two-dimensional and M-mode echocardiogram with Doppler and color Doppler. Other Information Quality : Technically Limited Technically limited study due to mobid obesity INDICATION Pulmonary Edema, Rule out CHF Echo Enhancing Agent Agent/Amount Used: Optison 4mL 2D DIMENSIONS RVDd 2.8 (2.9-3.5cm) Left Atrium(2D) 4.0 (1.6-4.0cm) IVSd 0.9 (0.7-1.1cm) Aortic Root(2D) 2.9 (2.0-3.7cm) LVDd 6.0 (3.9-5.9cm) LVOT Diameter 2.3 (1.8-2.4cm) PWd 1.0 (0.7-1.1cm) LVDs 3.6 (2.5-4.0cm) FS (%) 30.0 % SV 127.0 ml Aortic Valve AoV Peak Livan. 113.3cm/s AoV VTI 20.1cm AO Peak GR. 5.1mmHg LVOT Peak Livan. 104.1cm/s LVOT VTI 19.32cm AO Mean GR. 3mmHg CAYETANO (VMAX) 3.78cm2 CA[place]ETANO (VTI) 3.95cm2 Mitral Valve MV E Velocity 125.2cm/s MV DECEL TIME 166ms MV A Velocity 66.0cm/s MV PHT 48ms E/A Ratio 1.9 MVA (PHT) 4.58cm2 TDI E/Lateral E' 16.0 E/Medial E' 25.2 LEFT VENTRICLE Technically difficult study. The Left Ventricle is borderline dilated. There is normal left ventricular wall thickness. The left ventricular systolic function is normal. The Ejection Fraction is 55-60%. There is normal LV segmental wall motion. RIGHT VENTRICLE The right ventricle is normal size. The right ventricular systolic function is normal. ATRIA The left atrium is mildly dilated. The right atrium size is normal. The interatrial septum is intact with no evidence for an atrial septal defect or patent foramen ovale as noted on 2-D or Doppler imaging. AORTIC VALVE The aortic valve is calcified but opens well. Doppler and Color Flow revealed no significant aortic regurgitation. There is no significant aortic valvular stenosis. MITRAL VALVE The mitral valve is calcified but opens well. Mitral annular calcification is mild. There is no evidence of mitral valve prolapse. There is no mitral valve stenosis. Doppler and Color-flow revealed mild mitral regurgitation. TRICUSPID VALVE The tricuspid valve is normal in structure and function. Doppler and Color Flow revealed trace tricuspid valve regurgitation. There is no tricuspid valve stenosis. PULMONIC VALVE The pulmonic valve is not well visualized. Doppler and Color Flow revealed no pulmonic valvular regurgitation. There is no pulmonic valvular stenosis. GREAT VESSELS The aortic root is normal in size. The ascending aorta is not well seen. The IVC was not visualized. PERICARDIAL EFFUSION There is no evidence of significant pericardial effusion. Critical Notification Critical Value: No <Conclusion> Technically difficult study. The Left Ventricle is borderline dilated. The left ventricular systolic function is normal. The Ejection Fraction is 55-60%. There is normal LV segmental wall motion. Doppler and Color Flow revealed no significant aortic regurgitation. There is no significant aortic valvular stenosis. Doppler and Color-flow revealed mild mitral regurgitation. Doppler and Color Flow revealed trace tricuspid valve regurgitation. Signed by : Saroj Yates MD Electronically Approved : 10/24/2019 15:24:22 AP chest. HISTORY: Short of breath AP view was taken of the chest. Heart is upper normal in size. There are no confluent infiltrates. Mild vascular congestion is possible. Patient's not taken a deep inspiration. There is no effusion. IMPRESSION: 1. No confluent areas of infiltrate. 2. Mild vascular congestion. Electronically signed by: Solo Zaragoza MD (10/23/2019 6:46 AM) [id number] DICTATED and SIGNED BY: SOLO ZARAGOZA MD DATE: 10/23/19 0646 Laboratory Tests Test 10/23/19 11:51 10/23/19 16:43 10/23/19 18:00 10/23/19 21:13 Glucose (Fingerstick) 282 mg/dL (70-99) 216 mg/dL (70-99) 159 mg/dL (70-99) Troponin I Quantitative 0.020 ng/mL (0.000-0.055) Test 10/24/19 02:54 10/24/19 07:20 10/24/19 08:11 White Blood Count 11.0 x10^3/uL (4.0-11.0) Red Blood Count 3.54 x10^6/uL (4.30-5.70) Hemoglobin 10.9 g/dL (13.0-17.5) Hematocrit 33.4 % (39.0-53.0) Mean Corpuscular Volume 94 fL (79-100) Mean Corpuscular Hemoglobin 31 pg (25-35) Mean Corpuscular Hemoglobin Concent 33 g/dL (31-37) Red Cell Distribution Width 19.2 % (11.5-14.5) Platelet Count 242 x10^3/uL (140-400) Neutrophils (%) (Auto) 78 % (31-73) Lymphocytes (%) (Auto) 14 % (24-48) Monocytes (%) (Auto) 5 % (0-9) Eosinophils (%) (Auto) 3 % (0-3) Basophils (%) (Auto) 1 % (0-3) Neutrophils # (Auto) 8.6 x10^3/uL (1.8-7.7) Lymphocytes # (Auto) 1.5 x10^3/uL (1.0-4.8) Monocytes # (Auto) 0.5 x10^3/uL (0.0-1.1) Eosinophils # (Auto) 0.3 x10^3/uL (0.0-0.7) Basophils # (Auto) 0.1 x10^3/uL (0.0-0.2) Prothrombin Time 27.9 SEC (11.7-14.0) Prothromb Time International Ratio 2.6 (0.8-1.1) Sodium Level 136 mmol/L (136-145) Potassium Level 4.9 mmol/L (3.5-5.1) Chloride Level 96 mmol/L (98-107) Carbon Dioxide Level 27 mmol/L (21-32) Anion Gap 13 (6-14) Blood Urea Nitrogen 59 mg/dL (8-26) Creatinine 10.2 mg/dL (0.7-1.3) Estimated GFR (Cockcroft-Gault) 5.2 Glucose Level 118 mg/dL (70-99) Calcium Level 9.1 mg/dL (8.5-10.1) Troponin I Quantitative 0.017 ng/mL (0.000-0.055) 0.018 ng/mL (0.000-0.055) Glucose (Fingerstick) 241 mg/dL (70-99) Assessment and Plan Assessmemt and Plan Problems Medical Problems: (1) CHF exacerbation Status: Acute Comment Review of Relevant I have reviewed the following items joyce (where applicable) has been applied. Labs Laboratory Tests Test 10/23/19 06:00 10/23/19 11:51 10/23/19 16:43 10/23/19 18:00 White Blood Count 7.5 x10^3/uL (4.0-11.0) Red Blood Count 3.63 x10^6/uL (4.30-5.70) Hemoglobin 11.3 g/dL (13.0-17.5) Hematocrit 34.2 % (39.0-53.0) Mean Corpuscular Volume 94 fL (79-100) Mean Corpuscular Hemoglobin 31 pg (25-35) Mean Corpuscular Hemoglobin Concent 33 g/dL (31-37) Red Cell Distribution Width 19.7 % (11.5-14.5) Platelet Count 235 x10^3/uL (140-400) Neutrophils (%) (Auto) 75 % (31-73) Lymphocytes (%) (Auto) 15 % (24-48) Monocytes (%) (Auto) 6 % (0-9) Eosinophils (%) (Auto) 3 % (0-3) Basophils (%) (Auto) 1 % (0-3) Neutrophils # (Auto) 5.6 x10^3/uL (1.8-7.7) Lymphocytes # (Auto) 1.1 x10^3/uL (1.0-4.8) Monocytes # (Auto) 0.5 x10^3/uL (0.0-1.1) Eosinophils # (Auto) 0.2 x10^3/uL (0.0-0.7) Basophils # (Auto) 0.1 x10^3/uL (0.0-0.2) Prothrombin Time 28.3 SEC (11.7-14.0) Prothromb Time International Ratio 2.7 (0.8-1.1) Sodium Level 132 mmol/L (136-145) Potassium Level 5.0 mmol/L (3.5-5.1) Chloride Level 93 mmol/L (98-107) Carbon Dioxide Level 29 mmol/L (21-32) Anion Gap 10 (6-14) Blood Urea Nitrogen 53 mg/dL (8-26) Creatinine 8.8 mg/dL (0.7-1.3) Estimated GFR (Cockcroft-Gault) 6.1 BUN/Creatinine Ratio 6 (-20) Glucose Level 468 mg/dL (70-99) Calcium Level 9.3 mg/dL (8.5-10.1) Phosphorus Level 4.1 mg/dL (2.6-4.7) Total Bilirubin 0.4 mg/dL (0.2-1.0) Aspartate Amino Transf (AST/SGOT) 32 U/L (15-37) Alanine Aminotransferase (ALT/SGPT) 46 U/L (16-63) Alkaline Phosphatase 100 U/L (46-116) Troponin I Quantitative 0.019 ng/mL (0.000-0.055) 0.020 ng/mL (0.000-0.055) UG-Won-B-Type Natriuretic Peptide 15699 pg/mL (0-124) Total Protein 8.3 g/dL (6.4-8.2) Albumin 3.1 g/dL (3.4-5.0) Albumin/Globulin Ratio 0.6 (1.0-1.7) Glucose (Fingerstick) 282 mg/dL (70-99) 216 mg/dL (70-99) Test 10/23/19 21:13 10/24/19 02:54 10/24/19 07:20 10/24/19 08:11 Glucose (Fingerstick) 159 mg/dL (70-99) 241 mg/dL (70-99) White Blood Count 11.0 x10^3/uL (4.0-11.0) Red Blood Count 3.54 x10^6/uL (4.30-5.70) Hemoglobin 10.9 g/dL (13.0-17.5) Hematocrit 33.4 % (39.0-53.0) Mean Corpuscular Volume 94 fL (79-100) Mean Corpuscular Hemoglobin 31 pg (25-35) Mean Corpuscular Hemoglobin Concent 33 g/dL (31-37) Red Cell Distribution Width 19.2 % (11.5-14.5) Platelet Count 242 x10^3/uL (140-400) Neutrophils (%) (Auto) 78 % (31-73) Lymphocytes (%) (Auto) 14 % (24-48) Monocytes (%) (Auto) 5 % (0-9) Eosinophils (%) (Auto) 3 % (0-3) Basophils (%) (Auto) 1 % (0-3) Neutrophils # (Auto) 8.6 x10^3/uL (1.8-7.7) Lymphocytes # (Auto) 1.5 x10^3/uL (1.0-4.8) Monocytes # (Auto) 0.5 x10^3/uL (0.0-1.1) Eosinophils # (Auto) 0.3 x10^3/uL (0.0-0.7) Basophils # (Auto) 0.1 x10^3/uL (0.0-0.2) Prothrombin Time 27.9 SEC (11.7-14.0) Prothromb Time International Ratio 2.6 (0.8-1.1) Sodium Level 136 mmol/L (136-145) Potassium Level 4.9 mmol/L (3.5-5.1) Chloride Level 96 mmol/L (98-107) Carbon Dioxide Level 27 mmol/L (21-32) Anion Gap 13 (6-14) Blood Urea Nitrogen 59 mg/dL (8-26) Creatinine 10.2 mg/dL (0.7-1.3) Estimated GFR (Cockcroft-Gault) 5.2 Glucose Level 118 mg/dL (70-99) Calcium Level 9.1 mg/dL (8.5-10.1) Troponin I Quantitative 0.017 ng/mL (0.000-0.055) 0.018 ng/mL (0.000-0.055) Laboratory Tests Test 10/23/19 11:51 10/23/19 16:43 10/23/19 18:00 10/23/19 21:13 Glucose (Fingerstick) 282 mg/dL (70-99) 216 mg/dL (70-99) 159 mg/dL (70-99) Troponin I Quantitative 0.020 ng/mL (0.000-0.055) Test 10/24/19 02:54 10/24/19 07:20 10/24/19 08:11 White Blood Count 11.0 x10^3/uL (4.0-11.0) Red Blood Count 3.54 x10^6/uL (4.30-5.70) Hemoglobin 10.9 g/dL (13.0-17.5) Hematocrit 33.4 % (39.0-53.0) Mean Corpuscular Volume 94 fL (79-100) Mean Corpuscular Hemoglobin 31 pg (25-35) Mean Corpuscular Hemoglobin Concent 33 g/dL (31-37) Red Cell Distribution Width 19.2 % (11.5-14.5) Platelet Count 242 x10^3/uL (140-400) Neutrophils (%) (Auto) 78 % (31-73) Lymphocytes (%) (Auto) 14 % (24-48) Monocytes (%) (Auto) 5 % (0-9) Eosinophils (%) (Auto) 3 % (0-3) Basophils (%) (Auto) 1 % (0-3) Neutrophils # (Auto) 8.6 x10^3/uL (1.8-7.7) Lymphocytes # (Auto) 1.5 x10^3/uL (1.0-4.8) Monocytes # (Auto) 0.5 x10^3/uL (0.0-1.1) Eosinophils # (Auto) 0.3 x10^3/uL (0.0-0.7) Basophils # (Auto) 0.1 x10^3/uL (0.0-0.2) Prothrombin Time 27.9 SEC (11.7-14.0) Prothromb Time International Ratio 2.6 (0.8-1.1) Sodium Level 136 mmol/L (136-145) Potassium Level 4.9 mmol/L (3.5-5.1) Chloride Level 96 mmol/L (98-107) Carbon Dioxide Level 27 mmol/L (21-32) Anion Gap 13 (6-14) Blood Urea Nitrogen 59 mg/dL (8-26) Creatinine 10.2 mg/dL (0.7-1.3) Estimated GFR (Cockcroft-Gault) 5.2 Glucose Level 118 mg/dL (70-99) Calcium Level 9.1 mg/dL (8.5-10.1) Troponin I Quantitative 0.017 ng/mL (0.000-0.055) 0.018 ng/mL (0.000-0.055) Glucose (Fingerstick) 241 mg/dL (70-99) Medications Current Medications Enalaprilat (Vasotec Inj) 0.625 mg 1X ONCE IVP Last administered on 10/23/19at 10:06; Start 10/23/19 at 07:00; Stop 10/23/19 at 07:02; Status DC Insulin Human Regular (HumuLIN R VIAL) 10 unit 1X ONCE SQ Last administered on 10/23/19at 09:55; Start 10/23/19 at 07:00; Stop 10/23/19 at 07:02; Status DC Furosemide (Lasix) 40 mg 1X ONCE IVP Last administered on 10/23/19at 09:53; Start 10/23/19 at 08:30; Stop 10/23/19 at 08:31; Status DC Ondansetron HCl (Zofran) 4 mg PRN Q4HRS PRN IV NAUSEA/VOMITING; Start 10/23/19 at 09:00 Acetaminophen (Tylenol) 650 mg PRN Q4HRS PRN PO TEMP OVER 100.4F OR MILD PAIN; Start 10/23/19 at 09:00 Insulin Human Lispro (HumaLOG) 0-7 UNITS TIDAC SQ Last administered on 10/23/19at 17:19; Start 10/23/19 at 11:30 Dextrose (Dextrose 50%-Water Syringe) 12.5 gm PRN Q15MIN PRN IV SEE COMMENTS; Start 10/23/19 at 09:00 Psyllium Hydrophilic Mucilloid (Metamucil Fiber Packet) 1 pkt QHS PO Last administered on 10/23/19at 21:11; Start 10/23/19 at 21:00 Labetalol HCl (Normodyne Iv Push) 10 mg PRN Q2HR PRN IVP HYPERTENSION Last administered on 10/24/19 03:16; Start 10/23/19 at 09:15 Ascorbic Acid (Vitamin C) 500 mg DAILY PO Last administered on 10/23/19at 11:16; Start 10/23/19 at 10:00 Aspirin (Aspirin Chewable) 81 mg DAILY PO Last administered on 10/23/19at 11:16; Start 10/23/19 at 10:00 Vitamin B Complex/ Vitamin C (Cassie-Nyla) 1 tab DAILY PO Last administered on 10/23/19at 11:16; Start 10/23/19 at 10:00 Insulin Human Lispro (HumaLOG) 60 units DAILYWSUP SQ Last administered on 10/23/19at 17:19; Start 10/23/19 at 12:00 Ondansetron HCl (Zofran Odt) 4 mg PRN BID PRN PO NAUSEA/VOMITING; Start 10/23/19 at 09:15 Warfarin Sodium (Coumadin) 5 mg DAILY16 PO Last administered on 10/23/19at 17:12; Start 10/23/19 at 16:00 Insulin Glargine (Lantus Syringe) 35 unit BIDWMEALS SQ Last administered on 10/24/19at 08:50; Start 10/23/19 at 17:00 Insulin Human Lispro (HumaLOG) 50 units BIDACBL SQ Last administered on 10/24/19at 08:45; Start 10/23/19 at 11:30 Calcium Carbonate/ Glycine (Tums) 1,000 mg TIDAFTMEAL PO Last administered on 10/23/19at 17:12; Start 10/23/19 at 13:00 Warfarin Sodium (Coumadin Per Physician) 1 each PRN DAILY PRN MC SEE COMMENTS; Start 10/23/19 at 11:30 Sodium Chloride 1,000 ml @ 1,000 mls/hr Q1H PRN IV hypotension; Start 10/24/19 at 08:39; Stop 10/24/19 at 14:38 Sodium Chloride 1,000 ml @ 400 mls/hr Q2H30M PRN IV PATENCY; Start 10/24/19 at 08:39; Stop 10/24/19 at 20:38 Info (PHARMACY MONITORING -- do not chart) 1 each PRN DAILY PRN MC SEE COMMENTS; Start 10/24/19 at 08:45; Status UNV Info (PHARMACY MONITORING -- do not chart) 1 each PRN DAILY PRN MC SEE COMMENTS; Start 10/24/19 at 08:45 Active Scripts Active Thera-M Tablet (Multivits,Ca,Minerals/Iron/Fa) 1 Each Tablet 1 Tab PO DAILY 30 Days Vitamin C (Ascorbic Acid) 500 Mg Tablet 500 Mg PO DAILY 30 Days Zofran Odt (Ondansetron) 4 Mg Tab.rapdis 4 Mg PO BID PRN Reported Humalog (Insulin Lispro) 100 Unit/1 Ml Vial 60 Unit SQ DAILYWSUP Lantus Solostar (Insulin Glargine,Hum.rec.anlog) 100 Unit/1 Ml Insuln.pen 35 Unit SQ BIDAC PRN Aspirin 81 Mg Tab.chew 1 Tab PO DAILY Acetaminophen 500 Mg Tablet 1 Tab PO BID PRN Renal Vitamin Tablet (Folic Acid/Vit Bcomp,C) 0.8 Mg Tablet 0.8 Mg PO DAILY Humalog (Insulin Lispro) 100 Unit/1 Ml Insuln.pen 50 Unit SQ BIDACBL Warfarin Sodium 5 Mg Tablet 5 Mg PO DAILY Vitals/I & O Vital Sign - Last 24 Hours 10/23/19 10/23/19 10/23/19 10/23/19 10:05 10:06 10:57 11:00 Temp 97.6 97.6 Pulse 92 93 83 Resp 20 B/P (MAP) 224/92 (136) 235/107 230/107 (148) Pulse Ox 92 92 O2 Delivery Nasal Cannula Nasal Cannula Nasal Cannula O2 Flow Rate 2.0 2.0 10/23/19 10/23/19 10/23/19 10/23/19 11:24 12:50 15:13 16:14 Temp 97.4 97.4 Pulse 83 78 75 Resp 18 B/P (MAP) 230/107 176/82 (113) 206/91 (129) 160/80 (106) Pulse Ox 92 O2 Delivery Nasal Cannula O2 Flow Rate 2.0 10/23/19 10/23/19 10/23/19 10/24/19 19:00 20:00 23:00 03:05 Temp 98.2 98.0 98.4 98.2 98.0 98.4 Pulse 81 79 79 Resp 16 20 20 B/P (MAP) 183/82 (115) 170/83 (112) 189/91 (123) Pulse Ox 94 94 95 O2 Delivery Nasal Cannula Nasal Cannula Nasal Cannula Nasal Cannula O2 Flow Rate 3.0 3.0 2.0 2.0 10/24/19 10/24/19 10/24/19 03:16 04:02 07:00 Temp 97.8 97.8 Pulse 79 82 Resp 20 B/P (MAP) 189/91 166/78 (107) 162/78 (106) Pulse Ox 93 O2 Delivery Nasal Cannula O2 Flow Rate 2.0 Intake and Output 10/23/19 10/23/19 10/24/19 15:00 23:00 07:00 Intake Total 180 ml 400 ml 275 ml Output Total 400 ml Balance 180 ml 0 ml 275 ml AMADA BRYATN MD Oct 24, 2019 09:28
--- NOTE | 2019-10-24 11:20 | EKG ---
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
[2019-10-24] MEDS ORDERED: PERFLUTREN PROTEIN-A MICROSPHR 0.22 MG/ML 3 ML VIAL. IV ONE ×2 (13:11→14:45)
--- NOTE | 2019-10-24 13:43 | NUR ---
SS following for discharge planning. SS reviewed pt chart and discussed with pt RN. Pt is from home with spouse and is currently requiring oxygen. Pt has no home oxygen at home. Pt has outpatient dialysis at [facility], ; fax [phone], Thursday, Thursday, and Thursday. SS contacted [facility] and they do not require a COVID test. Possible discharge to home tomorrow. SS will continue to follow for discharge planning.
--- NOTE | 2019-10-24 14:38 | PDOC2 ---
CONSULT Date of Consult Date of Consult DATE: 10/24/19 TIME: 14:25 Reason for Consult Reason for Consult: ESRD Identification/Chief Complaint Chief Complaint Shortness of breath Source Source: Chart review, Patient History of Present Illness Reason for Visit: Pt a 64 yo CM w/ PMHx ESRD on HD, morbid obesity, HTN, prior DVT and PE 2010 , DM2, chronic LE wounds, anemia admitted with c/o shortness of breath. Patient states that the symptoms and present for the last 2 weeks. Cannot even walk 10 feet. Has never been on O2 previously, but at presentation desaturated below 87% and BP 238/109. He reports he has chronic diarrhea since having colon surgery 5 years ago. No N/V Denies any headache or visual symptoms.Denies chest pain, fever, chills. He has a chronic cough. He reports he has not been able to get down to the dry weight at his OP unit, he hasnt missed any treatments He had LE Fistulogram on 09/27/2019 Proximal outflow vein stenosis, and left subclavian vein stenosis treated with balloon angioplasty. Past Medical History Cardiovascular: HTN, Hyperlipidemia Pulmonary: COPD, Other GI: Other Renal/: Chronic renal insuff Endocrine: Diabetes Past Surgical History Past Surgical History: Colectomy, Colon Resection, Other Family History Family History: Cancer, Diabetes, Hypertension Social History No ALCOHOL: none Drugs: None Lives: with Family Current Problem List Problem List Problems Medical Problems: (1) CHF exacerbation Status: Acute Current Medications Current Medications Current Medications Enalaprilat (Vasotec Inj) 0.625 mg 1X ONCE IVP Last administered on 10/23/19at 10:06; Start 10/23/19 at 07:00; Stop 10/23/19 at 07:02; Status DC Insulin Human Regular (HumuLIN R VIAL) 10 unit 1X ONCE SQ Last administered on 10/23/19at 09:55; Start 10/23/19 at 07:00; Stop 10/23/19 at 07:02; Status DC Furosemide (Lasix) 40 mg 1X ONCE IVP Last administered on 10/23/19at 09:53; Start 10/23/19 at 08:30; Stop 10/23/19 at 08:31; Status DC Ondansetron HCl (Zofran) 4 mg PRN Q4HRS PRN IV NAUSEA/VOMITING; Start 10/23/19 at 09:00 Acetaminophen (Tylenol) 650 mg PRN Q4HRS PRN PO TEMP OVER 100.4F OR MILD PAIN; Start 10/23/19 at 09:00 Insulin Human Lispro (HumaLOG) 0-7 UNITS TIDAC SQ Last administered on 10/24/19at 12:26; Start 10/23/19 at 11:30 Dextrose (Dextrose 50%-Water Syringe) 12.5 gm PRN Q15MIN PRN IV SEE COMMENTS; Start 10/23/19 at 09:00 Psyllium Hydrophilic Mucilloid (Metamucil Fiber Packet) 1 pkt QHS PO Last administered on 10/23/19at 21:11; Start 10/23/19 at 21:00 Labetalol HCl (Normodyne Iv Push) 10 mg PRN Q2HR PRN IVP HYPERTENSION Last administered on 10/24/19at 03:16; Start 10/23/19 at 09:15 Ascorbic Acid (Vitamin C) 500 mg DAILY PO Last administered on 10/23/19at 11:16; Start 10/23/19 at 10:00 Aspirin (Aspirin Chewable) 81 mg DAILY PO Last administered on 10/23/19 11:16; Start 10/23/19 at 10:00 Vitamin B Complex/ Vitamin C (Cassie-Nyla) 1 tab DAILY PO Last administered on 10/23/19at 11:16; Start 10/23/19 at 10:00 Insulin Human Lispro (HumaLOG) 60 units DAILYWSUP SQ Last administered on 10/23/19at 17:19; Start 10/23/19 at 12:00 Ondansetron HCl (Zofran Odt) 4 mg PRN BID PRN PO NAUSEA/VOMITING; Start 10/23/19 at 09:15 Warfarin Sodium (Coumadin) 5 mg DAILY16 PO Last administered on 10/23/19at 17:12; Start 10/23/19 at 16:00 Insulin Glargine (Lantus Syringe) 35 unit BIDWMEALS SQ Last administered on 10/24/19at 08:50; Start 10/23/19 at 17:00 Insulin Human Lispro (HumaLOG) 50 units BIDACBL SQ Last administered on 10/24/19at 08:45; Start 10/23/19 at 11:30 Calcium Carbonate/ Glycine (Tums) 1,000 mg TIDAFTMEAL PO Last administered on 10/24/19at 12:24; Start 10/23/19 at 13:00 Warfarin Sodium (Coumadin Per Physician) 1 each PRN DAILY PRN MC SEE COMMENTS; Start 10/23/19 at 11:30 Sodium Chloride 1,000 ml @ 1,000 mls/hr Q1H PRN IV hypotension; Start 10/24/19 at 08:39; Stop 10/24/19 at 14:38 Sodium Chloride 1,000 ml @ 400 mls/hr Q2H30M PRN IV PATENCY; Start 10/24/19 at 08:39; Stop 10/24/19 at 20:38 Info (PHARMACY MONITORING -- do not chart) 1 each PRN DAILY PRN MC SEE COMMENTS; Start 10/24/19 at 08:45; Status UNV Info (PHARMACY MONITORING -- do not chart) 1 each PRN DAILY PRN MC SEE COMMENTS; Start 10/24/19 at 08:45 Perflutren Protein Type A Microsphe (Optison) 0.66 mg STK-MED ONCE IV ; Start 10/24/19 at 13:11; Stop 10/24/19 at 13:11; Status DC Active Scripts Active Thera-M Tablet (Multivits,Ca,Minerals/Iron/Fa) 1 Each Tablet 1 Tab PO DAILY 30 Days Vitamin C (Ascorbic Acid) 500 Mg Tablet 500 Mg PO DAILY 30 Days Zofran Odt (Ondansetron) 4 Mg Tab.rapdis 4 Mg PO BID PRN Reported Humalog (Insulin Lispro) 100 Unit/1 Ml Vial 60 Unit SQ DAILYWSUP Lantus Solostar (Insulin Glargine,Hum.rec.anlog) 100 Unit/1 Ml Insuln.pen 35 Unit SQ BIDAC PRN Aspirin 81 Mg Tab.chew 1 Tab PO DAILY Acetaminophen 500 Mg Tablet 1 Tab PO BID PRN Renal Vitamin Tablet (Folic Acid/Vit Bcomp,C) 0.8 Mg Tablet 0.8 Mg PO DAILY Humalog (Insulin Lispro) 100 Unit/1 Ml Insuln.pen 50 Unit SQ BIDACBL Warfarin Sodium 5 Mg Tablet 5 Mg PO DAILY Allergies Allergies: Coded Allergies: No Known Drug Allergies (Unverified , 09/27/19) ROS Review of System Per HPI Physical Exam Physical Exam General: No acute distress HEENT: Mucous membr. moist/pink Neck Thick, supple Lungs: (Bibasilar crackles, Non labored Heart: S1S2, RRR, Abdomen: Normal bowel sounds, Soft, No tenderness, Obese, Extremities: No clubbing, No cyanosis,No edema Skin: Right heel ulcer, bilateral breen ulcers and venous stasis dermatitis Neuro: Grossly Normal No [place] Psych/Mental Status: Mental status NL, Mood NL Vital Signs Vital Signs Date Time Temp Pulse Resp B/P (MAP) Pulse Ox O2 Delivery O2 Flow Rate FiO2 10/24/19 10:53 97.5 89 20 188/93 (124) 93 Nasal Cannula 2.0 97.5 Assessment & Plan ESRD - On HD MWF ( Dr. Ortiz) Seen on HD tolerating well, Continue as ordered Discussed with [facility] Specialist ACcess- s/p LE Fistulogram on 09/27/2019 Proximal outflow vein stenosis, and left subclavian vein stenosis treated with balloon angioplasty. Shortness of breath - Pt does not recall cardiac history Mild Congestion reported on CxR, currently stable, UF 4 lts as tolerated Acute hypoxic respiratory failure HTN urgency/emergency - home medications resumed Chronic lower extremity ulcers, bilateral Diabetes - type II, sees endocrinology outpatient Obesity Chronic diarrhea Anemia - prior transfusions H/o colon cancer and right hemicolectomy H/o DVT and PE, s/p IVC filter, anti-coagulated w/ Warfarin Labs Labs Laboratory Tests Test 10/23/19 06:00 10/23/19 11:51 10/23/19 16:43 10/23/19 18:00 White Blood Count 7.5 x10^3/uL (4.0-11.0) Red Blood Count 3.63 x10^6/uL (4.30-5.70) Hemoglobin 11.3 g/dL (13.0-17.5) Hematocrit 34.2 % (39.0-53.0) Mean Corpuscular Volume 94 fL (79-100) Mean Corpuscular Hemoglobin 31 pg (25-35) Mean Corpuscular Hemoglobin Concent 33 g/dL (31-37) Red Cell Distribution Width 19.7 % (11.5-14.5) Platelet Count 235 x10^3/uL (140-400) Neutrophils (%) (Auto) 75 % (31-73) Lymphocytes (%) (Auto) 15 % (24-48) Monocytes (%) (Auto) 6 % (0-9) Eosinophils (%) (Auto) 3 % (0-3) Basophils (%) (Auto) 1 % (0-3) Neutrophils # (Auto) 5.6 x10^3/uL (1.8-7.7) Lymphocytes # (Auto) 1.1 x10^3/uL (1.0-4.8) Monocytes # (Auto) 0.5 x10^3/uL (0.0-1.1) Eosinophils # (Auto) 0.2 x10^3/uL (0.0-0.7) Basophils # (Auto) 0.1 x10^3/uL (0.0-0.2) Prothrombin Time 28.3 SEC (11.7-14.0) Prothromb Time International Ratio 2.7 (0.8-1.1) Sodium Level 132 mmol/L (136-145) Potassium Level 5.0 mmol/L (3.5-5.1) Chloride Level 93 mmol/L (98-107) Carbon Dioxide Level 29 mmol/L (21-32) Anion Gap 10 (6-14) Blood Urea Nitrogen 53 mg/dL (8-26) Creatinine 8.8 mg/dL (0.7-1.3) Estimated GFR (Cockcroft-Gault) 6.1 BUN/Creatinine Ratio 6 (6-20) Glucose Level 468 mg/dL (70-99) Calcium Level 9.3 mg/dL (8.5-10.1) Phosphorus Level 4.1 mg/dL (2.6-4.7) Total Bilirubin 0.4 mg/dL (0.2-1.0) Aspartate Amino Transf (AST/SGOT) 32 U/L (15-37) Alanine Aminotransferase (ALT/SGPT) 46 U/L (16-63) Alkaline Phosphatase 100 U/L (46-116) Troponin I Quantitative 0.019 ng/mL (0.000-0.055) 0.020 ng/mL (0.000-0.055) JP-Cus-N-Type Natriuretic Peptide 28913 pg/mL (0-124) Total Protein 8.3 g/dL (6.4-8.2) Albumin 3.1 g/dL (3.4-5.0) Albumin/Globulin Ratio 0.6 (1.0-1.7) Glucose (Fingerstick) 282 mg/dL (70-99) 216 mg/dL (70-99) Test 10/23/19 21:13 10/24/19 02:54 10/24/19 07:20 10/24/19 08:11 Glucose (Fingerstick) 159 mg/dL (70-99) 241 mg/dL (70-99) White Blood Count 11.0 x10^3/uL (4.0-11.0) Red Blood Count 3.54 x10^6/uL (4.30-5.70) Hemoglobin 10.9 g/dL (13.0-17.5) Hematocrit 33.4 % (39.0-53.0) Mean Corpuscular Volume 94 fL (79-100) Mean Corpuscular Hemoglobin 31 pg (25-35) Mean Corpuscular Hemoglobin Concent 33 g/dL (31-37) Red Cell Distribution Width 19.2 % (11.5-14.5) Platelet Count 242 x10^3/uL (140-400) Neutrophils (%) (Auto) 78 % (31-73) Lymphocytes (%) (Auto) 14 % (24-48) Monocytes (%) (Auto) 5 % (0-9) Eosinophils (%) (Auto) 3 % (0-3) Basophils (%) (Auto) 1 % (0-3) Neutrophils # (Auto) 8.6 x10^3/uL (1.8-7.7) Lymphocytes # (Auto) 1.5 x10^3/uL (1.0-4.8) Monocytes # (Auto) 0.5 x10^3/uL (0.0-1.1) Eosinophils # (Auto) 0.3 x10^3/uL (0.0-0.7) Basophils # (Auto) 0.1 x10^3/uL (0.0-0.2) Prothrombin Time 27.9 SEC (11.7-14.0) Prothromb Time International Ratio 2.6 (0.8-1.1) Sodium Level 136 mmol/L (136-145) Potassium Level 4.9 mmol/L (3.5-5.1) Chloride Level 96 mmol/L (98-107) Carbon Dioxide Level 27 mmol/L (21-32) Anion Gap 13 (6-14) Blood Urea Nitrogen 59 mg/dL (8-26) Creatinine 10.2 mg/dL (0.7-1.3) Estimated GFR (Cockcroft-Gault) 5.2 Glucose Level 118 mg/dL (70-99) Calcium Level 9.1 mg/dL (8.5-10.1) Troponin I Quantitative 0.017 ng/mL (0.000-0.055) 0.018 ng/mL (0.000-0.055) Test 10/24/19 11:54 Glucose (Fingerstick) 267 mg/dL (70-99) Laboratory Tests Test 10/23/19 16:43 10/23/19 18:00 10/23/19 21:13 10/24/19 02:54 Glucose (Fingerstick) 216 mg/dL (70-99) 159 mg/dL (70-99) Troponin I Quantitative 0.020 ng/mL (0.000-0.055) 0.017 ng/mL (0.000-0.055) White Blood Count 11.0 x10^3/uL (4.0-11.0) Red Blood Count 3.54 x10^6/uL (4.30-5.70) Hemoglobin 10.9 g/dL (13.0-17.5) Hematocrit 33.4 % (39.0-53.0) Mean Corpuscular Volume 94 fL (79-100) Mean Corpuscular Hemoglobin 31 pg (25-35) Mean Corpuscular Hemoglobin Concent 33 g/dL (31-37) Red Cell Distribution Width 19.2 % (11.5-14.5) Platelet Count 242 x10^3/uL (140-400) Neutrophils (%) (Auto) 78 % (31-73) Lymphocytes (%) (Auto) 14 % (24-48) Monocytes (%) (Auto) 5 % (0-9) Eosinophils (%) (Auto) 3 % (0-3) Basophils (%) (Auto) 1 % (0-3) Neutrophils # (Auto) 8.6 x10^3/uL (1.8-7.7) Lymphocytes # (Auto) 1.5 x10^3/uL (1.0-4.8) Monocytes # (Auto) 0.5 x10^3/uL (0.0-1.1) Eosinophils # (Auto) 0.3 x10^3/uL (0.0-0.7) Basophils # (Auto) 0.1 x10^3/uL (0.0-0.2) Prothrombin Time 27.9 SEC (11.7-14.0) Prothromb Time International Ratio 2.6 (0.8-1.1) Sodium Level 136 mmol/L (136-145) Potassium Level 4.9 mmol/L (3.5-5.1) Chloride Level 96 mmol/L (98-107) Carbon Dioxide Level 27 mmol/L (21-32) Anion Gap 13 (6-14) Blood Urea Nitrogen 59 mg/dL (8-26) Creatinine 10.2 mg/dL (0.7-1.3) Estimated GFR (Cockcroft-Gault) 5.2 Glucose Level 118 mg/dL (70-99) Calcium Level 9.1 mg/dL (8.5-10.1) Test 10/24/19 07:20 10/24/19 08:11 10/24/19 11:54 Troponin I Quantitative 0.018 ng/mL (0.000-0.055) Glucose (Fingerstick) 241 mg/dL (70-99) 267 mg/dL (70-99) Review All relevant outside records, renal labs, imaging studies, telemetry/EKG's were reviewed. Images Images CXR: AP view was taken of the chest. Heart is upper normal in size. There are no confluent infiltrates. Mild vascular congestion is possible. Patient's not taken a deep inspiration. There is no effusion. IMPRESSION: 1. No confluent areas of infiltrate. 2. Mild vascular congestion. ANABEL GARSIA MD Oct 24, 2019 14:37
--- NOTE | 2019-10-24 15:23 | NUR ---
Wound Care Pt off floor, in dialysis, upon arrival of WC team. Will follow up tomorrow Addendum: 10/25/19 at 1559 by JOSE GUO RN Was told by Jose CHAU that pt has coccyx wound that she was unable to picture or measure due to location and pt having diarrhea. Will assess on 10/25/2019
--- NOTE | 2019-10-24 15:24 | CARD ---
MR#: [id number] Date of Study: 10/24/2019 Ordering Physician: ALEX ARENAS, Referring Physician: ALEX ARENAS, Tech: Teri Rodríguez [facility] APPROVED REPORT EXAM: Two-dimensional and M-mode echocardiogram with Doppler and color Doppler. Other Information Quality : Technically Limited Technically limited study due to mobid obesity INDICATION Pulmonary Edema, Rule out CHF Echo Enhancing Agent Agent/Amount Used: Optison 4mL 2D DIMENSIONS RVDd2.8 (2.9-3.5cm)Left Atrium(2D)4.0 (1.6-4.0cm) IVSd0.9 (0.7-1.1cm)Aortic Root(2D)2.9 (2.0-3.7cm) LVDd6.0 (3.9-5.9cm)LVOT Diameter2.3 (1.8-2.4cm) PWd1.0 (0.7-1.1cm)LVDs3.6 (2.5-4.0cm) FS (%) 30.0 %SV127.0 ml Aortic Valve AoV Peak Livan.113.3cm/sAoV VTI20.1cm AO Peak GR.5.1mmHgLVOT Peak Livan.104.1cm/s LVOT VTI 19.32cmAO Mean GR.3mmHg [place] (VMAX)3.17ro8GSW (VTI)3.95cm2 Mitral Valve MV E Fowfccoe696.2cm/sMV DECEL ZIGC809pp MV A Sbdpodfq24.0cm/sMV RMQ65dx E/A Ratio1.9MVA (PHT)4.58cm2 TDI E/Lateral E'16.0E/Medial E'25.2 LEFT VENTRICLE Technically difficult study. The Left Ventricle is borderline dilated. There is normal left ventricul ar wall thickness. The left ventricular systolic function is normal. The Ejection Fraction is 55-60%. There is normal LV segmental wall motion. RIGHT VENTRICLE The right ventricle is normal size. The right ventricular systolic function is normal. ATRIA The left atrium is mildly dilated. The right atrium size is normal. The interatrial septum is intact with no evidence for an atrial septal defect or patent foramen ovale as noted on 2-D or Doppler imagi ng. AORTIC VALVE The aortic valve is calcified but opens well. Doppler and Color Flow revealed no significant aortic r egurgitation. There is no significant aortic valvular stenosis. MITRAL VALVE The mitral valve is calcified but opens well. Mitral annular calcification is mild. There is no evide nce of mitral valve prolapse. There is no mitral valve stenosis. Doppler and Color-flow revealed mild mitral regurgitation. TRICUSPID VALVE The tricuspid valve is normal in structure and function. Doppler and Color Flow revealed trace tricus pid valve regurgitation. There is no tricuspid valve stenosis. PULMONIC VALVE The pulmonic valve is not well visualized. Doppler and Color Flow revealed no pulmonic valvular regur gitation. There is no pulmonic valvular stenosis. GREAT VESSELS The aortic root is normal in size. The ascending aorta is not well seen. The IVC was not visualized. PERICARDIAL EFFUSION There is no evidence of significant pericardial effusion. Critical Notification Critical Value: No <Conclusion> Technically difficult study. The Left Ventricle is borderline dilated. The left ventricular systolic function is normal. The Ejection Fraction is 55-60%. There is normal LV segmental wall motion. Doppler and Color Flow revealed no significant aortic regurgitation. There is no significant aortic valvular stenosis. Doppler and Color-flow revealed mild mitral regurgitation. Doppler and Color Flow revealed trace tricuspid valve regurgitation. Signed by : Saroj Yates MD Electronically Approved : 10/24/2019 15:24:22
[2019-10-24] MEDS: ASPIRIN CHEWABLE 81 MG TABLET. PO SCH (18:23)
[2019-10-24] MEDS: ASCORBIC ACID 500 MG TABLET PO SCH (18:23)
[2019-10-24] MEDS: WARFARIN 5 MG TABLET. PO SCH (18:23)
[2019-10-24] MEDS: FOLIC/VIT B COMP W-C (RENAL) TABLET. PO SCH (18:24)
--- NOTE | 2019-10-24 19:07 | NUR ---
Assessment completed vss poc explained pt c/o not being able to sleep will place call to for med orders will resume care and continue to monitor pt.Call light in reach.
[2019-10-24] MEDS ORDERED: ZOLPIDEM 5 MG TABLET. PO PRN (21:00)
[2019-10-24] MEDS: PSYLLIUM HUSK (SUGAR FREE) 1 PKT PACKET PO SCH (21:05)
[2019-10-25 03:00] VITALS: BP 144/67
[2019-10-25 07:25] VITALS: BP 143/64
[2019-10-25] MEDS: INSULIN LISPRO 300 UNITS/3 ML VIAL. SQ SCH ×6 (07:30→17:20)
[2019-10-25] MEDS: ASPIRIN CHEWABLE 81 MG TABLET. PO SCH (08:23)
[2019-10-25] MEDS: CALCIUM CARBONATE 500 MG TAB.CHEW PO SCH ×3 (08:23→17:22)
[2019-10-25] MEDS: ASCORBIC ACID 500 MG TABLET PO SCH (08:23)
[2019-10-25] MEDS: FOLIC/VIT B COMP W-C (RENAL) TABLET. PO SCH (08:23)
[2019-10-25] MEDS: INSULIN GLARGINE SYRINGE. SQ SCH ×2 (08:31→17:21)
--- NOTE | 2019-10-25 10:00 | PDOC ---
PROGRESS NOTES History of Present Illness History of Present Illness IMPRESSION: 1. No confluent areas of infiltrate. 2. Mild vascular congestion. VTE Prophylaxis Ordered VTE Prophylaxis Devices: No VTE Pharmacological Prophylaxi: Yes IMPRESSION Shortness of breath - acute pulmonary edema, possibly diastolic CHF, but he does not recall cardiac history, will check echocardiogram, will consult nephrology for ultrafiltration. PFTs previously normal echo 10/23 Ejection Fraction is 55-60%. normal LV segmental wall motion Acute hypoxic respiratory failure - likely from pulmonary edema from fluid overload, no known CHF history, no recent sick contacts or concern for pneumonia. Will ask nephrology for assistance with ultrafiltration. Wean O2 as tolerated HTN urgency/emergency - Will add labetalol IV, restart home medications. Chronic lower extremity ulcers, bilateral Right heel ulcer - diabetic ulcer, wound care following Abnormal CXR - likely fluid overload. Will need ultrafiltration Elevated troponin - very minimally elevated. If continues to elevate may need to consult cardiology. Likely this is demand ischemia from fluid overload. Normal cardiac stress End-stage renal disease, on hemodialysis - MWF. Diabetes - type II, sees endocrinology outpatient on 35u Lantus BID, 50u lispro ac breakfast and lunch and 60u Qpm with dinner. Will keep on his home regimen Hypertension - as above, not controlled. Does not have a home BP cuff Obesity - counseled on weight loss, diet, exercise. Chronic diarrhea - will add psyllium. May need cholestyramine or immodium as well Anemia - of chronic renal disease, prior transfusions, on iron therapy FEN - ADA renal diet PPX - coumadin FULL CODE Dispo - inpatient for above 6 minute walk, may need home o2 d/w RN and family in room 10/24 Justicifation of Admission Dx: Justicifation of Admission Dx: Justifications for Admission: Justification of Admission Dx: Yes Vitals Vitals Vital Signs Date Time Temp Pulse Resp B/P (MAP) Pulse Ox O2 Delivery O2 Flow Rate FiO2 10/25/19 07:25 97.4 77 20 143/64 (90) 94 Nasal Cannula 2.0 97.4 Physical Exam General: Alert, Oriented X3, Cooperative, No acute distress Lungs: Clear, Crackles Abdomen: Normal bowel sounds, Soft, No tenderness, No hepatosplenomegaly, No masses, Other (Reducible abdominal wall hernia) Extremities: No clubbing, No cyanosis, Normal pulses, No tenderness/swelling Skin: Other (Right heel ulcer, bilateral breen ulcers and venous stasis dermatitis) Labs LABS Laboratory Tests Test 10/24/19 11:54 10/24/19 18:22 10/24/19 21:06 10/25/19 07:30 Glucose (Fingerstick) 267 mg/dL (70-99) 137 mg/dL (70-99) 194 mg/dL (70-99) 121 mg/dL (70-99) Assessment and Plan Assessmemt and Plan Problems Medical Problems: (1) CHF exacerbation Status: Acute Comment Review of Relevant I have reviewed the following items joyce (where applicable) has been applied. Labs Laboratory Tests Test 10/23/19 11:51 10/23/19 16:43 10/23/19 18:00 10/23/19 21:13 Glucose (Fingerstick) 282 mg/dL (70-99) 216 mg/dL (70-99) 159 mg/dL (70-99) Troponin I Quantitative 0.020 ng/mL (0.000-0.055) Test 10/24/19 02:54 10/24/19 07:20 10/24/19 08:11 10/24/19 11:54 White Blood Count 11.0 x10^3/uL (4.0-11.0) Red Blood Count 3.54 x10^6/uL (4.30-5.70) Hemoglobin 10.9 g/dL (13.0-17.5) Hematocrit 33.4 % (39.0-53.0) Mean Corpuscular Volume 94 fL (79-100) Mean Corpuscular Hemoglobin 31 pg (25-35) Mean Corpuscular Hemoglobin Concent 33 g/dL (31-37) Red Cell Distribution Width 19.2 % (11.5-14.5) Platelet Count 242 x10^3/uL (140-400) Neutrophils (%) (Auto) 78 % (31-73) Lymphocytes (%) (Auto) 14 % (24-48) Monocytes (%) (Auto) 5 % (0-9) Eosinophils (%) (Auto) 3 % (0-3) Basophils (%) (Auto) 1 % (0-3) Neutrophils # (Auto) 8.6 x10^3/uL (1.8-7.7) Lymphocytes # (Auto) 1.5 x10^3/uL (1.0-4.8) Monocytes # (Auto) 0.5 x10^3/uL (0.0-1.1) Eosinophils # (Auto) 0.3 x10^3/uL (0.0-0.7) Basophils # (Auto) 0.1 x10^3/uL (0.0-0.2) Prothrombin Time 27.9 SEC (11.7-14.0) Prothromb Time International Ratio 2.6 (0.8-1.1) Sodium Level 136 mmol/L (136-145) Potassium Level 4.9 mmol/L (3.5-5.1) Chloride Level 96 mmol/L (98-107) Carbon Dioxide Level 27 mmol/L (21-32) Anion Gap 13 (6-14) Blood Urea Nitrogen 59 mg/dL (8-26) Creatinine 10.2 mg/dL (0.7-1.3) Estimated GFR (Cockcroft-Gault) 5.2 Glucose Level 118 mg/dL (70-99) Calcium Level 9.1 mg/dL (8.5-10.1) Troponin I Quantitative 0.017 ng/mL (0.000-0.055) 0.018 ng/mL (0.000-0.055) Glucose (Fingerstick) 241 mg/dL (70-99) 267 mg/dL (70-99) Test 10/24/19 18:22 10/24/19 21:06 10/25/19 07:30 Glucose (Fingerstick) 137 mg/dL (70-99) 194 mg/dL (70-99) 121 mg/dL (70-99) Laboratory Tests Test 10/24/19 11:54 10/24/19 18:22 10/24/19 21:06 10/25/19 07:30 Glucose (Fingerstick) 267 mg/dL (70-99) 137 mg/dL (70-99) 194 mg/dL (70-99) 121 mg/dL (70-99) Medications Current Medications Enalaprilat (Vasotec Inj) 0.625 mg 1X ONCE IVP Last administered on 10/23/19at 10:06; Start 10/23/19 at 07:00; Stop 10/23/19 at 07:02; Status DC Insulin Human Regular (HumuLIN R VIAL) 10 unit 1X ONCE SQ Last administered on 10/23/19at 09:55; Start 10/23/19 at 07:00; Stop 10/23/19 at 07:02; Status DC Furosemide (Lasix) 40 mg 1X ONCE IVP Last administered on 10/23/19at 09:53; Start 10/23/19 at 08:30; Stop 10/23/19 at 08:31; Status DC Ondansetron HCl (Zofran) 4 mg PRN Q4HRS PRN IV NAUSEA/VOMITING; Start 10/23/19 at 09:00 Acetaminophen (Tylenol) 650 mg PRN Q4HRS PRN PO TEMP OVER 100.4F OR MILD PAIN; Start 10/23/19 at 09:00 Insulin Human Lispro (HumaLOG) 0-7 UNITS TIDAC SQ Last administered on 10/24/19at 12:26; Start 10/23/19 at 11:30 Dextrose (Dextrose 50%-Water Syringe) 12.5 gm PRN Q15MIN PRN IV SEE COMMENTS; Start 10/23/19 at 09:00 Psyllium Hydrophilic Mucilloid (Metamucil Fiber Packet) 1 pkt QHS PO Last administered on 10/23/19at 21:11; Start 10/23/19 at 21:00 Labetalol HCl (Normodyne Iv Push) 10 mg PRN Q2HR PRN IVP HYPERTENSION Last administered on 10/24/19at 03:16; Start 10/23/19 at 09:15 Ascorbic Acid (Vitamin C) 500 mg DAILY PO Last administered on 10/25/19at 08:23; Start 10/23/19 at 10:00 Aspirin (Aspirin Chewable) 81 mg DAILY PO Last administered on 10/25/19at 08:23; Start 10/23/19 at 10:00 Vitamin B Complex/ Vitamin C (Cassie-Nyla) 1 tab DAILY PO Last administered on 10/25/19at 08:23; Start 10/23/19 at 10:00 Insulin Human Lispro (HumaLOG) 60 units DAILYWSUP SQ Last administered on 10/24/19at 18:38; Start 10/23/19 at 12:00 Ondansetron HCl (Zofran Odt) 4 mg PRN BID PRN PO NAUSEA/VOMITING; Start 10/23/19 at 09:15 Warfarin Sodium (Coumadin) 5 mg DAILY16 PO Last administered on 10/24/19at 18:23; Start 10/23/19 at 16:00 Insulin Glargine (Lantus Syringe) 35 unit BIDWMEALS SQ Last administered on at 08:31; Start 10/23/19 at 17:00 Insulin Human Lispro (HumaLOG) 50 units BIDACBL SQ Last administered on 10/25/19at 08:31; Start 10/23/19 at 11:30 Calcium Carbonate/ Glycine (Tums) 1,000 mg TIDAFTMEAL PO Last administered on 10/25/19at 08:23; Start 10/23/19 at 13:00 Warfarin Sodium (Coumadin Per Physician) 1 each PRN DAILY PRN MC SEE COMMENTS Last administered on 10/24/19at 15:00; Start 10/23/19 at 11:30 Sodium Chloride 1,000 ml @ 1,000 mls/hr Q1H PRN IV hypotension; Start 10/24/19 at 08:39; Stop 10/24/19 at 14:38; Status DC Sodium Chloride 1,000 ml @ 400 mls/hr Q2H30M PRN IV PATENCY; Start 10/24/19 at 08:39; Stop 10/24/19 at 20:38; Status DC Info (PHARMACY MONITORING -- do not chart) 1 each PRN DAILY PRN MC SEE COMMENTS; Start 10/24/19 at 08:45; Status UNV Info (PHARMACY MONITORING -- do not chart) 1 each PRN DAILY PRN MC SEE COMMENTS; Start 10/24/19 at 08:45 Perflutren Protein Type A Microsphe (Optison) 0.66 mg STK-MED ONCE IV ; Start 10/24/19 at 13:11; Stop 10/24/19 at 13:11; Status DC Perflutren Protein Type A Microsphe (Optison) 0.66 mg 1X ONCE IV Last administered on 10/24/19at 14:34; Start 10/24/19 at 14:45; Stop 10/24/19 at 14:46; Status DC Zolpidem Tartrate (Ambien) 5 mg PRN QHS PRN PO INSOMNIA Last administered on 10/24/19at 21:24; Start 10/24/19 at 21:00 Active Scripts Active Thera-M Tablet (Multivits,Ca,Minerals/Iron/Fa) 1 Each Tablet 1 Tab PO DAILY 30 Days Vitamin C (Ascorbic Acid) 500 Mg Tablet 500 Mg PO DAILY 30 Days Zofran Odt (Ondansetron) 4 Mg Tab.rapdis 4 Mg PO BID PRN Reported Humalog (Insulin Lispro) 100 Unit/1 Ml Vial 60 Unit SQ DAILYWSUP Lantus Solostar (Insulin Glargine,Hum.rec.anlog) 100 Unit/1 Ml Insuln.pen 35 Unit SQ BIDAC PRN Aspirin 81 Mg Tab.chew 1 Tab PO DAILY Acetaminophen 500 Mg Tablet 1 Tab PO BID PRN Renal Vitamin Tablet (Folic Acid/Vit Bcomp,C) 0.8 Mg Tablet 0.8 Mg PO DAILY Humalog (Insulin Lispro) 100 Unit/1 Ml Insuln.pen 50 Unit SQ BIDACBL Warfarin Sodium 5 Mg Tablet 5 Mg PO DAILY Vitals/I & O Vital Sign - Last 24 Hours 10/24/19 10/24/19 10/24/19 10/24/19 10:53 18:47 18:48 19:22 Temp 97.5 97.5 97.5 97.5 Pulse 89 92 86 Resp 20 18 B/P (MAP) 188/93 (124) 220/99 (139) 201/87 (125) 176/74 (108) Pulse Ox 93 97 O2 Delivery Nasal Cannula Nasal Cannula O2 Flow Rate 2.0 2.0 10/24/19 10/24/19 10/25/19 10/25/19 19:25 23:00 03:00 07:25 Temp 98.3 98.6 97.4 98.3 98.6 97.4 Pulse 83 75 77 Resp 18 18 20 B/P (MAP) 151/67 (95) 144/67 (92) 143/64 (90) Pulse Ox 94 95 94 O2 Delivery Room Air Nasal Cannula Nasal Cannula Nasal Cannula O2 Flow Rate 2.0 2.0 2.0 Intake and Output 10/24/19 10/24/19 10/25/19 14:59 22:59 06:59 Intake Total 400 ml 340 ml 340 ml Balance 400 ml 340 ml 340 ml AMADA BRYANT MD Oct 25, 2019 10:00
[2019-10-25 10:45] VITALS: BP 163/76
--- NOTE | 2019-10-25 11:02 | PDOC ---
SUBJECTIVE ROS No new complaints by patient , denies SOB OBJECTIVE Vital Signs Vital Signs Date Time Temp Pulse Resp B/P (MAP) Pulse Ox O2 Delivery O2 Flow Rate FiO2 10/25/19 10:45 98.4 74 22 163/76 (105) 98 Nasal Cannula 2.0 98.4 I & 0 Intake and Output 10/25/19 07:00 Intake Total 1080 ml Balance 1080 ml Intake Oral 1080 ml # Bowel Movements 1 PHYSICAL EXAM Physical Exam General: No acute distress HEENT: Mucous membr. moist/pink Neck Thick, supple Lungs: (Bibasilar crackles, Non labored Heart: S1S2, RRR, Abdomen: Normal bowel sounds, Soft, No tenderness, Obese, Extremities: No clubbing, No cyanosis,No edema Skin: Right heel ulcer, bilateral breen ulcers and venous stasis dermatitis Neuro: Grossly Normal No [place] Psych/Mental Status: Mental status NL, Mood NL DIAGNOSIS/ASSESSMENT Assessment & Plan ESRD - [facility] No indication for [facility] today ACcess- s/p LE Fistulogram on 09/27/2019 Proximal outflow vein stenosis, and left subclavian vein stenosis treated with balloon angioplasty. Shortness of breath - Resolved Mild Congestion reported on CxR, currently stable, Acute hypoxic respiratory failure HTN urgency/emergency - home medications resumed Chronic lower extremity ulcers, bilateral Diabetes - type II, sees endocrinology outpatient Obesity Chronic diarrhea Anemia - prior transfusions H/o colon cancer and right hemicolectomy H/o DVT and PE, s/p IVC filter, anti-coagulated w/ Warfarin COMMENT/RELEVANT DATA Meds Current Medications Medications (Trade) Dose Ordered Sig/Cristian Start Time Stop Time Status Last Admin Dose Admin Acetaminophen (Tylenol) 650 mg PRN Q4HRS PRN 10/23/19 09:00 Ascorbic Acid (Vitamin C) 500 mg DAILY 10/23/19 10:00 10/25/19 08:23 500 MG Aspirin (Aspirin Chewable) 81 mg DAILY 10/23/19 10:00 10/25/19 08:23 81 MG Calcium Carbonate/ Glycine (Tums) 1,000 mg TIDAFTMEAL 10/23/19 13:00 10/25/19 08:23 1,000 MG Dextrose (Dextrose 50%-Water Syringe) 12.5 gm PRN Q15MIN PRN 10/23/19 09:00 Enalaprilat (Vasotec Inj) 0.625 mg 1X ONCE 10/23/19 07:00 10/23/19 07:02 DC 10/23/19 10:06 0.625 MG Furosemide (Lasix) 40 mg 1X ONCE 10/23/19 08:30 10/23/19 08:31 DC 10/23/19 09:53 40 MG Info (PHARMACY MONITORING -- do not chart) 1 each PRN DAILY PRN 10/24/19 08:45 Insulin Glargine (Lantus Syringe) 35 unit BIDWMEALS 10/23/19 17:00 10/25/19 08:31 35 UNIT Insulin Human Lispro (HumaLOG) 50 units BIDACBL 10/23/19 11:30 10/25/19 08:31 35 UNITS Insulin Human Regular (HumuLIN R VIAL) 10 unit 1X ONCE 10/23/19 07:00 10/23/19 07:02 DC 10/23/19 09:55 10 UNIT Labetalol HCl (Normodyne Iv Push) 10 mg PRN Q2HR PRN 10/23/19 09:15 10/24/19 03:16 10 MG Ondansetron HCl (Zofran Odt) 4 mg PRN BID PRN 10/23/19 09:15 Ondansetron HCl (Zofran) 4 mg PRN Q4HRS PRN 10/23/19 09:00 Perflutren Protein Type A Microsphe (Optison) 0.66 mg 1X ONCE 10/24/19 14:45 10/24/19 14:46 DC 10/24/19 14:34 0.66 MG Psyllium Hydrophilic Mucilloid (Metamucil Fiber Packet) 1 pkt QHS 10/23/19 21:00 10/23/19 21:11 1 PKT Sodium Chloride 1,000 ml @ 400 mls/hr Q2H30M PRN 10/24/19 08:39 10/24/19 20:38 DC Vitamin B Complex/ Vitamin C (Cassie-Nyla) 1 tab DAILY 10/23/19 10:00 10/25/19 08:23 1 TAB Warfarin Sodium (Coumadin Per Physician) 1 each PRN DAILY PRN 10/23/19 11:30 10/24/19 15:00 1 EACH Warfarin Sodium (Coumadin) 5 mg DAILY16 10/23/19 16:00 10/24/19 18:23 5 MG Zolpidem Tartrate (Ambien) 5 mg PRN QHS PRN 10/24/19 21:00 10/24/19 21:24 5 MG Lab Laboratory Tests Test 10/24/19 11:54 10/24/19 18:22 10/24/19 21:06 10/25/19 07:30 Glucose (Fingerstick) 267 mg/dL (70-99) 137 mg/dL (70-99) 194 mg/dL (70-99) 121 mg/dL (70-99) Results All relevant outside records, renal labs, imaging studies, telemetry/EKG's were reviewed. Justicifation of Admission Dx: Justifications for Admission: Justification of Admission Dx: Yes CHF: Cardiac Arrhythmias ANABEL GARSIA MD Oct 25, 2019 11:02
--- NOTE | 2019-10-25 11:59 | NUR ---
SS following up with discharge planning. SS reviewed pt chart and discussed with pt RN. Possible discharge to home today. Per RN, oxygen is being titrated and nephrology has signed off. SS will continue to follow for discharge planning.
[2019-10-25 14:41] VITALS: BP 172/77
--- NOTE | 2019-10-25 15:47 | NUR ---
Wound/Ostomy Care Wound Type/Assessment: Consult for BLE VLUs, R heel DFU and coccyx PU stage 3. Pt known to wound care from outpatient clinic. Treatment Recommendations/Plan: All wounds cleansed with wound wash. Coccyx PU stage 3 wound pictured and measured, recommendations to apply calazime cream bid and prn. BLE covered with xeroform, abd and kerlix. R heel covered with iodoflex, abd and kerlix. Education provided: Pt educated on PU prevention/care, reminded to turn while in bed, to elevate legs when sitting up or when in bed. Pt was found with legs/heels again bed rail upon arrival. Legs left elevated on pillows. Offloading surface/device: purple wedge to help with turns, pillows to elevate legs, pt has heel relief shoe to offload R heel. Recommended Referrals/Tests: n/a at this time Discharge Recommendations for dressings: Same as above, pt familiar with dressing changes as we are following POC from outpatient setting. Extra iodoflex dressings left in room for patient.
[2019-10-25] MEDS: WARFARIN 5 MG TABLET. PO SCH (16:31)
--- NOTE | 2019-10-25 18:21 | NUR ---
Discharge Note: ELENITA SHEPHERD [address] [place] [address] Discharge instructions and discharge home medications reviewed with Patient and a copy given. All questions have been answered and understanding verbalized. The following instructions and handouts were given: Hypoxia Discontinued IV line Patient discharged to home with selfcare via wheelchair
--- NOTE | 2019-11-04 21:14 | PDOC3 ---
Discharge Summary Date of Admission: Oct 23, 2019 Date of Discharge: Oct 25, 2019 Follow-Up: 3-5 days Admitting Diagnosis comment: IMPRESSION Shortness of breath - acute pulmonary edema, possibly diastolic CHF, but he does not recall cardiac history, will check echocardiogram, will consult nephrology for ultrafiltration. PFTs previously normal echo 10/23 Ejection Fraction is 55-60%. normal LV segmental wall motion Acute hypoxic respiratory failure - likely from pulmonary edema from fluid overload, no known CHF history, no recent sick contacts or concern for pneumonia. Will ask nephrology for assistance with ultrafiltration. Wean O2 as tolerated HTN urgency/emergency - Will add labetalol IV, restart home medications. Chronic lower extremity ulcers, bilateral Right heel ulcer - diabetic ulcer, wound care following Abnormal CXR - likely fluid overload. Will need ultrafiltration Elevated troponin - very minimally elevated. If continues to elevate may need to consult cardiology. Likely this is demand ischemia from fluid overload. Normal cardiac stress End-stage renal disease, on hemodialysis - MWF. Diabetes - type II, sees endocrinology outpatient on 35u Lantus BID, 50u lispro ac breakfast and lunch and 60u Qpm with dinner. Will keep on his home regimen Hypertension - as above, not controlled. Does not have a home BP cuff Obesity - counseled on weight loss, diet, exercise. Chronic diarrhea - will add psyllium. May need cholestyramine or immodium as well Anemia - of chronic renal disease, prior transfusions, on iron therapy FEN - ADA renal diet PPX - coumadin FULL CODE Dispo - inpatient for above 6 minute walk, may need home o2 d/w RN and family in room 10/24 Justicifation of Admission Dx: Justicifation of Admission Dx: Justifications for Admission: Justification of Admission Dx: Yes Vitals Vitals Vital Signs Date Time Temp Pulse Resp B/P (MAP) Pulse Ox O2 Delivery O2 Flow Rate FiO2 10/25/19 07:25 97.4 77 20 143/64 (90) 94 Nasal Cannula 2.0 97.4 Physical Exam General: Alert, Oriented X3, Cooperative, No acute distress Lungs: Clear, Crackles Abdomen: Normal bowel sounds, Soft, No tenderness, No hepatosplenomegaly, No masses, Other (Reducible abdominal wall hernia) Extremities: No clubbing, No cyanosis, Normal pulses, No tenderness/swelling Skin: Other (Right heel ulcer, bilateral breen ulcers and venous stasis dermatitis) Labs LABS Laboratory Tests Test 10/24/19 11:54 10/24/19 18:22 10/24/19 21:06 10/25/19 07:30 Glucose (Fingerstick) 267 mg/dL (70-99) 137 mg/dL (70-99) 194 mg/dL (70-99) 121 mg/dL (70-99) Assessment and Plan Assessmemt and Plan Problems Medical Problems: (1) CHF exacerbation Status: Acute FINAL DIAGNOSIS Problems Medical Problems: (1) CHF exacerbation Status: Acute Brief Hospital Course Mr. Denny is a 64 old [sex] who presented with [ACUTE PULMONARY EDEMA ] CONDITION AT DISCHARGE: Improved Discharge Medications Current Medications Enalaprilat (Vasotec Inj) 0.625 mg 1X ONCE IVP Last administered on 10/23/19at 10:06; Start 10/23/19 at 07:00; Stop 10/23/19 at 07:02; Status DC Insulin Human Regular (HumuLIN R VIAL) 10 unit 1X ONCE SQ Last administered on 10/23/19at 09:55; Start 10/23/19 at 07:00; Stop 10/23/19 at 07:02; Status DC Furosemide (Lasix) 40 mg 1X ONCE IVP Last administered on 10/23/19at 09:53; Start 10/23/19 at 08:30; Stop 10/23/19 at 08:31; Status DC Ondansetron HCl (Zofran) 4 mg PRN Q4HRS PRN IV NAUSEA/VOMITING; Start 10/23/19 at 09:00; Stop 10/25/19 at 18:23; Status DC Acetaminophen (Tylenol) 650 mg PRN Q4HRS PRN PO TEMP OVER 100.4F OR MILD PAIN; Start 10/23/19 at 09:00; Stop 10/25/19 at 18:23; Status DC Insulin Human Lispro (HumaLOG) 0-7 UNITS TIDAC SQ Last administered on 10/24/19at 12:26; Start 10/23/19 at 11:30; Stop 10/25/19 at 18:23; Status DC Dextrose (Dextrose 50%-Water Syringe) 12.5 gm PRN Q15MIN PRN IV SEE COMMENTS; Start 10/23/19 at 09:00; Stop 10/25/19 at 18:23; Status DC Psyllium Hydrophilic Mucilloid (Metamucil Fiber Packet) 1 pkt QHS PO Last administered on 10/23/19at 21:11; Start 10/23/19 at 21:00; Stop 10/25/19 at 18:23; Status DC Labetalol HCl (Normodyne Iv Push) 10 mg PRN Q2HR PRN IVP HYPERTENSION Last administered on 10/24/19at 03:16; Start 10/23/19 at 09:15; Stop 10/25/19 at 18:23; Status DC Ascorbic Acid (Vitamin C) 500 mg DAILY PO Last administered on 10/25/19at 08:23; Start 10/23/19 at 10:00; Stop 10/25/19 at 18:23; Status DC Aspirin (Aspirin Chewable) 81 mg DAILY PO Last administered on 10/25/19at 08:23; Start 10/23/19 at 10:00; Stop 10/25/19 at 18:23; Status DC Vitamin B Complex/ Vitamin C (Cassie-Nyla) 1 tab DAILY PO Last administered on 10/25/19at 08:23; Start 10/23/19 at 10:00; Stop 10/25/19 at 18:23; Status DC Insulin Human Lispro (HumaLOG) 60 units DAILYWSUP SQ Last administered on 10/25/19at 17:20; Start 10/23/19 at 12:00; Stop 10/25/19 at 18:23; Status DC Ondansetron HCl (Zofran Odt) 4 mg PRN BID PRN PO NAUSEA/VOMITING; Start 10/23/19 at 09:15; Stop 10/25/19 at 18:23; Status DC Warfarin Sodium (Coumadin) 5 mg DAILY16 PO Last administered on 10/25/19at 16:31; Start 10/23/19 at 16:00; Stop 10/25/19 at 18:23; Status DC Insulin Glargine (Lantus Syringe) 35 unit BIDWMEALS SQ Last administered on 10/25/19at 17:21; Start 10/23/19 at 17:00; Stop 10/25/19 at 18:23; Status DC Insulin Human Lispro (HumaLOG) 50 units BIDACBL SQ Last administered on 09/27 at 12:20; Start 10/23/19 at 11:30; Stop 10/25/19 at 18:23; Status DC Calcium Carbonate/ Glycine (Tums) 1,000 mg TIDAFTMEAL PO Last administered on 10/25/19at 17:22; Start 10/23/19 at 13:00; Stop 10/25/19 at 18:23; Status DC Warfarin Sodium (Coumadin Per Physician) 1 each PRN DAILY PRN MC SEE COMMENTS Last administered on 10/25/19at 12:06; Start 10/23/19 at 11:30; Stop 10/25/19 at 18:23; Status DC Sodium Chloride 1,000 ml @ 1,000 mls/hr Q1H PRN IV hypotension; Start 10/24/19 at 08:39; Stop 10/24/19 at 14:38; Status DC Sodium Chloride 1,000 ml @ 400 mls/hr Q2H30M PRN IV PATENCY; Start 10/24/19 at 08:39; Stop 10/24/19 at 20:38; Status DC Info (PHARMACY MONITORING -- do not chart) 1 each PRN DAILY PRN MC SEE COMMENTS; Start 10/24/19 at 08:45; Status UNV Info (PHARMACY MONITORING -- do not chart) 1 each PRN DAILY PRN MC SEE COMMENTS; Start 10/24/19 at 08:45; Stop 10/25/19 at 18:23; Status DC Perflutren Protein Type A Microsphe (Optison) 0.66 mg STK-MED ONCE IV ; Start 10/24/19 at 13:11; Stop 10/24/19 at 13:11; Status DC Perflutren Protein Type A Microsphe (Optison) 0.66 mg 1X ONCE IV Last administered on 10/24/19at 14:34; Start 10/24/19 at 14:45; Stop 10/24/19 at 14:46; Status DC Zolpidem Tartrate (Ambien) 5 mg PRN QHS PRN PO INSOMNIA Last administered on 10/24/19at 21:24; Start 10/24/19 at 21:00; Stop 10/25/19 at 18:23; Status DC Active Scripts Active Thera-M Tablet (Multivits,Ca,Minerals/Iron/Fa) 1 Each Tablet 1 Tab PO DAILY 30 Days Vitamin C (Ascorbic Acid) 500 Mg Tablet 500 Mg PO DAILY 30 Days Zofran Odt (Ondansetron) 4 Mg Tab.rapdis 4 Mg PO BID PRN Reported Humalog (Insulin Lispro) 100 Unit/1 Ml Vial 60 Unit SQ DAILYWSUP Lantus Solostar (Insulin Glargine,Hum.rec.anlog) 100 Unit/1 Ml Insuln.pen 35 Unit SQ BIDAC PRN Aspirin 81 Mg Tab.chew 1 Tab PO DAILY Acetaminophen 500 Mg Tablet 1 Tab PO BID PRN Renal Vitamin Tablet (Folic Acid/Vit Bcomp,C) 0.8 Mg Tablet 0.8 Mg PO DAILY Humalog (Insulin Lispro) 100 Unit/1 Ml Insuln.pen 50 Unit SQ BIDACBL Warfarin Sodium 5 Mg Tablet 5 Mg PO DAILY Allergies Allergies Coded Allergies Type Severity Reaction Last Updated Verified No Known Drug Allergies 09/27/19 No Disposition/Orders: D/C to Home Justicifation of Admission Dx: Justifications for Admission: Justification of Admission Dx: Yes CHF: Cardiac Arrhythmias AMADA BRYANT MD Nov 04, 2019 21:14
[2019-12-31] MEDS ORDERED: DOXY100T PO (10:58)
== END 2019-10-25 18:23 | disposition home or self-care (01) | DRG 291 ==
LOC: ER 05:38 → 2 NORTH 09:01
PROVIDERS: ADMIT Internal Medicine; ATTEND Internal Medicine
PROC: 5A1D70Z Performance of Urinary Filtration, Intermittent, Less than 6 Hours Per Day (ICD-10-PCS; principal; 2019-10-24)
DX: I13.2 Hypertensive heart and chronic kidney disease with heart failure and with stage 5 chronic kidney disease, or end stage renal disease (principal); I50.33 Acute on chronic diastolic (congestive) heart failure; J96.01 Acute respiratory failure with hypoxia; N18.6 End stage renal disease; I24.8 Other forms of acute ischemic heart disease; L97.419 Non-pressure chronic ulcer of right heel and midfoot with unspecified severity; Z68.41 Body mass index [BMI] 40.0-44.9, adult; I16.0 Hypertensive urgency; E11.22 Type 2 diabetes mellitus with diabetic chronic kidney disease; E11.621 Type 2 diabetes mellitus with foot ulcer; E11.622 Type 2 diabetes mellitus with other skin ulcer; E78.5 Hyperlipidemia, unspecified; I45.10 Unspecified right bundle-branch block; J44.9 Chronic obstructive pulmonary disease, unspecified; K52.9 Noninfective gastroenteritis and colitis, unspecified; Z82.49 Family history of ischemic heart disease and other diseases of the circulatory system; Z86.711 Personal history of pulmonary embolism; Z83.3 Family history of diabetes mellitus; Z86.718 Personal history of other venous thrombosis and embolism; Z87.891 Personal history of nicotine dependence; Z99.2 Dependence on renal dialysis; E66.01 Morbid (severe) obesity due to excess calories; G62.9 Polyneuropathy, unspecified; E66.9 Obesity, unspecified
CPT/HCPCS: 96372; 96374; 99285; C8929; 36415; 71045; 80048; 80053; 82962; 83880; 84100; 84484; 85025; 85610; 93005; 94618; J1815; J1940; J3490; Q9956; G0378

== ENCOUNTER 2019-12-04 05:18 | Emergency (ER) | payer OTHER, MEDICARE ==
[~2019-12-04] VITALS: Ht 193 cm; Wt 147.5 kg
--- NOTE | 2019-12-04 06:03 | PHYS DOC ---
Past Medical History Past Medical History: Diabetes-Type II, DVT, Renal Failure, Other Additional Past Medical Histor: neuropathy, PE (DYLAN CLEVELAND MD) Past Surgical History: Other Additional Past Surgical Histo: colon resection, L upper arm fistula, L UPPER ARM FISTULA REPAIR 09/27/19 (DYLAN CLEVELAND MD) Smoking Status: Former Smoker Alcohol Use: Rarely Drug Use: None (DYLAN CLEVELAND MD) General Adult EDM: Chief Complaint: SHORTNESS OF BREATH HPI: HPI: Patient is a 64 year old male who presents with the complaints of shortness of breath. Patient stated to me that he has had a 10 yard dyspnea with exertion for years. In addition patient reports that he is able to lie flat at night. For many months he states that he has been having shortness of breath at night when he lies down. However he denies PND orthopnea. Patient reports that he goes to dialysis regularly and is taking his medications. He denies melena, hematochezia, change in cough, change in sputum production, fever or chills, sore throat, congestion or runny nose. Patient also denies any abdominal pain or change in swelling. Patient also denies any chest pain. (DYLAN CLEVELAND MD) Review of Systems: Review of Systems: Constitutional: Denies fever or chills. [] Eyes: Denies change in visual acuity. [] HENT: Denies nasal congestion or sore throat. [] Respiratory: See HPI [] Cardiovascular: See HPI. [] GI: Denies abdominal pain, nausea, vomiting, bloody stools or diarrhea. [] : Denies dysuria. [] Musculoskeletal: Denies back pain or joint pain. [] Integument: Denies rash. [] Neurologic: Denies headache, focal weakness or sensory changes. [] Endocrine: Denies polyuria or polydipsia. [] Lymphatic: Denies swollen glands. [] Psychiatric: Denies depression or anxiety. [] (DYLAN CLEVELAND MD) Heart Score: Risk Factors: Risk Factors: DM, Current or recent (<one month) smoker, HTN, HLP, family history of CAD, obesity. Risk Scores: Score 0 - 3: 2.5% MACE over next 6 weeks - Discharge Home Score 4 - 6: 20.3% MACE over next 6 weeks - Admit for Clinical Observation Score 7 - 10: 72.7% MACE over next 6 weeks - Early Invasive Strategies (DYLAN CLEVELAND MD) Allergies: Allergies: Allergies Coded Allergies Type Severity Reaction Last Updated Verified No Known Drug Allergies 09/27/19 No (DYLAN CLEVELAND MD) Physical Exam: PE: Constitutional: Well developed, well nourished, obese no acute distress, non- toxic appearance. [] HENT: Normocephalic, atraumatic, bilateral external ears normal, oropharynx moist, no oral exudates, nose normal. [] Eyes: PERRLA, EOMI, conjunctiva normal, no discharge. [] Neck: Normal range of motion, no tenderness, supple, no stridor positive JVD. [] Cardiovascular:Heart rate regular rhythm, grade 2/6 systolic murmur [] Lungs & Thorax: Crackles both bases, no accessory muscle use, no respiratory distress, chest wall nontender to palpation [] Abdomen: Bowel sounds normal, soft, no tenderness, no masses, no pulsatile masses. [] Skin: Warm, dry, chronic appearing erythema and hyperkeratosis consistent with venous stasis dermatitis of both lower extremities.. [] Back: No tenderness, no CVA tenderness. [] Extremities: No tenderness, no cyanosis, no clubbing, ROM intact, 3 mm of pitting edema [] Neurologic: Alert and oriented X 3, normal motor function, normal sensory function, no focal deficits noted. [] Psychologic: Affect normal, judgement normal, mood normal. [] (DYLAN CLEVELAND MD) PE: Constitutional: Well developed, well nourished, no acute distress, non-toxic appearance. HENT: No trismus, external ears normal Eyes: Conjunctiva clear, EOMI Neck: Normal range of motion, no tenderness, supple, no stridor. Cardiovascular: Regular rate/rhythm, peripheral pulse intact, ACTIVITY COORDINATOR intact Lungs & Thorax: No respiratory distress Abdomen: No distension Skin: Diffuse: Intact, chronic venous stasis changes to bilateral lower extremities Back: Full ROM Extremities: 2-3+ bilateral lower extremity edema. Wrapping in place on right foot Neurologic: Alert and oriented X 3, normal motor function, , no focal deficits noted. Psychologic: Affect normal, judgement normal, mood normal. (LIVIA HAWLEY MD) Current Patient Data: Labs: Laboratory Tests Test 8/9/20 06:30 White Blood Count 6.9 x10^3/uL Red Blood Count 3.39 x10^6/uL Hemoglobin 10.6 g/dL Hematocrit 31.5 % Mean Corpuscular Volume 93 fL Mean Corpuscular Hemoglobin 31 pg Mean Corpuscular Hemoglobin Concent 34 g/dL Red Cell Distribution Width 17.9 % Platelet Count 195 x10^3/uL Neutrophils (%) (Auto) 70 % Lymphocytes (%) (Auto) 18 % Monocytes (%) (Auto) 8 % Eosinophils (%) (Auto) 3 % Basophils (%) (Auto) 1 % Neutrophils # (Auto) 4.8 x10^3/uL Lymphocytes # (Auto) 1.2 x10^3/uL Monocytes # (Auto) 0.6 x10^3/uL Eosinophils # (Auto) 0.2 x10^3/uL Basophils # (Auto) 0.0 x10^3/uL Sodium Level 132 mmol/L Potassium Level 4.2 mmol/L Chloride Level 93 mmol/L Carbon Dioxide Level 31 mmol/L Anion Gap 8 Blood Urea Nitrogen 37 mg/dL Creatinine 8.6 mg/dL Estimated GFR (Cockcroft-Gault) 6.3 BUN/Creatinine Ratio 4 Glucose Level 107 mg/dL Calcium Level 9.8 mg/dL Total Bilirubin 0.4 mg/dL Aspartate Amino Transf (AST/SGOT) 29 U/L Alanine Aminotransferase (ALT/SGPT) 42 U/L Alkaline Phosphatase 63 U/L Troponin I Quantitative 0.018 ng/mL Total Protein 8.4 g/dL Albumin 3.0 g/dL Albumin/Globulin Ratio 0.6 Vital Signs: Vital Signs Date Time Temp Pulse Resp B/P (MAP) Pulse Ox O2 Delivery O2 Flow Rate FiO2 12/04/19 05:35 97.3 176/76 (109) 96 Room Air 97.3 (LIVIA HAWLEY MD) EKG: EKG: [] (DYLAN CLEVELAND MD) EKG: EKG interpreted by me normal sinus rhythm left axis deviation left anterior hemiblock, right bundle branch block, prolonged QTC nonspecific ST changes rate of 80 (LIVIA HAWLEY MD) Radiology/Procedures: Radiology/Procedures: [] (DYLAN CLEVELAND MD) Radiology/Procedures: [facility] [address] [place] [address] IMAGING REPORT Signed PATIENT: ELENITA DENNY ACCOUNT: [id number] : 1955 LOCATION: ER AGE: 64 SEX: M EXAM STATUS: REG ER ORD. PHYSICIAN: DYLAN CLEVELAND MD REASON: SOB PROCEDURE: CHEST AP ONLY AP chest x-ray HISTORY: Shortness of breath. COMPARISON: Chest x-ray October 23, 2019. FINDINGS: Heart size stable. Mediastinal width upper limits of normal measuring 10 cm although stable to prior x-rays may be due to vascular tortuosity or mediastinal lipomatosis. Aortic arch is unremarkable. No pneumothorax. No pleural effusions. Improvement of the pulmonary vascular congestion since the prior study. Development of mild fissural thickening. Indistinct opacities of the lower lobes as well as a mild linear density at the left lung base are stable may indicate mild pulmonary edema. Small nodule or calcified granuloma right upper lobe stable to prior x-rays for over 2 years beyond June 2017 favoring a benign lesion. IMPRESSION: Mild pulmonary vascular congestion and lower lobe pulmonary edema is stable. No pleural effusions. Electronically signed by: Bryon Grijalva MD (12/04/2019 7:06 AM) [facility] [place] DICTATED and SIGNED BY: BRYON GRIJALVA MD DATE: 12/04/19705 (LIVIA HAWLEY MD) Course & Med Decision Making: Course & Med Decision Making Pertinent Labs and Imaging studies reviewed. (See chart for details) 0600-patient was seen and examined. Patient will be turned over to Dr. Hawley. I discussed all pertinent history and physical findings and plan of work-up. [] (DYLAN CLEVELAND MD) Course & Med Decision Making Received signout from overnight doc regarding Mr. Denny. On my questioning patient says he is got chronic dyspnea on exertion for the last 15 years. He is here primarily because he cannot sleep. Patient says he has not slept since 4:00 yesterday afternoon. X-ray looks stable. Blood work is stable as well. Patient's in no respiratory distress. Patient is just asking for some medication to help him sleep for a few days and have follow-up with his primary doctor. We will put him on a low-dose Restoril with return precautions given (LIVIA HAWLEY MD) Dragon Disclaimer: Dragon Disclaimer: This electronic medical record was generated, in whole or in part, using a voice recognition dictation system. (DYLAN CLEVELAND MD) Departure Departure Impression: Primary Impression: Insomnia Additional Impression: Dyspnea Disposition: 01 HOME, SELF-CARE Condition: STABLE Referrals: HIGINIO WISE MD (PCP) Patient Instructions: Insomnia Additional Instructions: EMERGENCY DEPARTMENT GENERAL DISCHARGE INSTRUCTIONS THANK YOU for coming to [facility] Emergency Department (ED) today and trusting us with your care. We trust that you had a positive experience in our Emergency Department. If you wish to speak to the department Management you can contact the retail department manager at . YOUR FOLLOW UP INSTRUCTIONS ARE FOLLOWS: Do you have a private doctor? If you do not have a private doctor, please ask for a resource list of physicians or clinics that may be able to assist you with follow up care. The Emergency Physician has interpreted your x-rays. The X-ray specialist will also review them. If there is a change in the findings you will be notified in 48 hours when at all possible. A lab test or lab culture may have been done, your results will be reviewed and you will be notified if you need a change in treatment. ADDITIONAL INSTRUCTIONS AND INFORMATION Your care today has been supervised by a physician who is specially trained in emergency care. Many problems require more than one evaluation for a complete diagnosis and treatment. We recommend that you schedule your follow up appointment as recommended to ensure complete treatment of your illness or injury. If you are unable to obtain follow up care and continue to have a problem, or if your condition worsens we recommend that you return to the ED. We are not able to safely determine your condition over the phone nor are we able to give sound medical advice over the phone. For these safety reasons, if you call for medical advice we will ask you to come to the ED for further evaluation If you have any questions regarding these discharge instructions please call the ED at . SAFETY INFORMATION In the interest of safety, wellness, and injury prevention; we encourage you to wear your seatbelt, if you smoke; quit smoking, and we encourage your family to use protective helmet for bicycling and other sporting events that present an increased risk for head injury. IF YOUR SYMPTOMS WORSEN OR NEW SYMPTOMS DEVELOP, OR YOU HAVE CONCERNS ABOUT YOUR CONDITION; OR IF YOUR CONDITION WORSENS WHILE YOU ARE WAITING FOR YOUR FOLLOW UP APPOINTMENT; EITHER CONTACT YOUR PRIMARY CARE DOCTOR, THE PHYSICIAN WHOSE NAME AND NUMBER YOU WERE GIVEN, OR RETURN TO THE ED IMMEDIATELY. Scripts Temazepam (RESTORIL) 7.5 Mg Capsule 7.5 MG PO HS PRN for INSOMNIA, #10 CAP Prov: LIVIA HAWLEY MD 12/04/19 Justicifation of Admission Dx: Justifications for Admission: Justification of Admission Dx: Yes CHF: Cardiac Arrhythmias (DYLAN CLEVELAND MD) Justification of Admission Dx: N/A (LIVIA HAWLEY MD) DYLAN CLEVELAND MD Dec 04, 2019 06:03 LIVIA HAWLEY MD Dec 04, 2019 06:53
[2019-12-04 06:51] LABS: BASO % 1 % (0-3); EOS # 0.2 x10^3/uL (0.0-0.7); EOS % 3 % (0-3); HEMATOCRIT 31.5 % (39.0-53.0); HEMOGLOBIN 10.6 g/dL (13.0-17.5); LYMPH # 1.2 x10^3/uL (1.0-4.8); LYMPH % 18 % (24-48); MEAN CORPUSCULAR HEMOGLOBIN 31 pg (25-35); MEAN CORPUSCULAR HGB CONC 34 g/dL (31-37); MEAN CORPUSCULAR VOLUME 93 fL (79-100); MONO # 0.6 x10^3/uL (0.0-1.1); MONO % 8 % (0-9); NEUT # 4.8 x10^3/uL (1.8-7.7); NEUT % 70 % (31-73); PLATELET COUNT 195 x10^3/uL (140-400); RED BLOOD COUNT 3.39 x10^6/uL (4.30-5.70); RED CELL DISTRIBUTION WIDTH 17.9 % (11.5-14.5); WHITE BLOOD COUNT 6.9 x10^3/uL (4.0-11.0)
[2019-12-04 06:56] LABS: CALCIUM 9.8 mg/dL (8.5-10.1); CREATININE 8.6 mg/dL (0.7-1.3); GFR 6.3; POTASSIUM 4.2 mmol/L (3.5-5.1)
[2019-12-04 07:04] LABS: ALBUMIN/GLOBULIN RATIO 0.6 (1.0-1.7); TOTAL BILIRUBIN 0.4 mg/dL (0.2-1.0); TOTAL PROTEIN 8.4 g/dL (6.4-8.2)
[2019-12-04 07:05] VITALS: BP 179/82
--- NOTE | 2019-12-04 07:09 | RAD ---
AP chest x-ray HISTORY: Shortness of breath. COMPARISON: Chest x-ray October 23, 2019. FINDINGS: Heart size stable. Mediastinal width upper limits of normal measuring 10 cm although stable to prior x-rays may be due to vascular tortuosity or mediastinal lipomatosis. Aortic arch is unremarkable. No pneumothorax. No pleural effusions. Improvement of the pulmonary vascular congestion since the prior study. Development of mild fissural thickening. Indistinct opacities of the lower lobes as well as a mild linear density at the left lung base are stable may indicate mild pulmonary edema. Small nodule or calcified granuloma right upper lobe stable to prior x-rays for over 2 years beyond June 2017 favoring a benign lesion. IMPRESSION: Mild pulmonary vascular congestion and lower lobe pulmonary edema is stable. No pleural effusions. Electronically signed by: Margarito Grijalva MD (12/04/2019 7:06 AM) [facility]
[2019-12-04] MEDS ORDERED: TEMA7.5C2 PO (07:20)
--- NOTE | 2019-12-06 05:09 | EKG ---
[facility] [address] [place] [address] Test Date: 2019-12-04 Test Time: 06:35:41 Pat Name: ELENITA SHEPHERD Department: Room: Gender: M Shactor: : 1955 Requested By: DYLAN CLEVELAND Order Number: [id number] Reading MD: Measurements Intervals [place] Rate: 80 P: 39 GA: 184 QRS: -48 QRSD: 130 T: 65 QT: 424 QTc: 493 Interpretive Statements SINUS RHYTHM ABNORMAL LEFT AXIS DEVIATION LEFT ANTERIOR FASCICULAR BLOCK RIGHT BUNDLE BRANCH BLOCK BIFASCICULAR BLOCK ABNORMAL ECG RI6.02 No previous ECG available for comparison
== END 2019-12-04 07:50 | disposition home or self-care (01) ==
LOC: ER 05:18
DX: G47.00 Insomnia, unspecified (principal); R06.00 Dyspnea, unspecified; R06.02 Shortness of breath; L53.9 Erythematous condition, unspecified; E11.8 Type 2 diabetes mellitus with unspecified complications; N19 Unspecified kidney failure; Z87.891 Personal history of nicotine dependence; Z98.890 Other specified postprocedural states; Z86.718 Personal history of other venous thrombosis and embolism
CPT/HCPCS: 36415; 71045; 80053; 84484; 85025; 93005; 99285

== ENCOUNTER 2019-12-16 07:32 | Inpatient (IN) | payer MEDICARE, OTHER ==
[~2019-12-16] VITALS: Ht 193 cm; Wt 149.0 kg
[~2019-12-16 07:32] MED LIST changes: +TEMA7.5C2 PO
--- NOTE | 2019-12-16 07:57 | PHYS DOC ---
Past Medical History Past Medical History: DVT, Hypertension, Renal Disease Additional Past Medical Histor: neuropathy, PE Past Surgical History: Other Additional Past Surgical Histo: colon resection Smoking Status: Former Smoker Alcohol Use: Occasionally Drug Use: None General Adult EDM: Chief Complaint: fever HPI: HPI: Patient is a 64 year old male presents with a 1 day history of fever. Patient is a dialysis patient went to the dialysis center today and complained of not feeling well. Patient noted to have a fever 101. Patient has a cough that is chronic in nature. Patient was tested for coronavirus a week ago was negative. Patient has got chronic wounds of his bilateral lower extremities at which he sees wound care and states he has no new complaints with this. Patient has generalized weakness. Patient has some mild shortness of breath. Symptoms are not alleviated by anything but his weakness is worse with exertion. Review of Systems: Review of Systems: Constitutional: Reports fever Eyes: Denies change in visual acuity. [] HENT: Denies nasal congestion or sore throat. [] Respiratory: Has a chronic cough and mild shortness of breath Cardiovascular: Denies chest pain or edema. [] GI: Denies abdominal pain, but has some nausea and, has some mild diarrhea : Denies dysuria. [] Musculoskeletal: Denies back pain or joint pain. [] Integument: Denies rash. [] Complains of chronic wounds to bilateral lower extremities Neurologic: Denies headache, focal weakness or sensory changes. [] Endocrine: Denies polyuria or polydipsia. [] Lymphatic: Denies swollen glands. [] Psychiatric: Denies depression or anxiety. [] Heart Score: Risk Factors: Risk Factors: DM, Current or recent (<one month) smoker, HTN, HLP, family history of CAD, obesity. Risk Scores: Score 0 - 3: 2.5% MACE over next 6 weeks - Discharge Home Score 4 - 6: 20.3% MACE over next 6 weeks - Admit for Clinical Observation Score 7 - 10: 72.7% MACE over next 6 weeks - Early Invasive Strategies Allergies: Allergies: Allergies Coded Allergies Type Severity Reaction Last Updated Verified No Known Drug Allergies 09/27/19 No Physical Exam: PE: Constitutional: Well developed, well nourished, mild distress, non-toxic appearance. [] HENT: Normocephalic, atraumatic, bilateral external ears normal, o no trismus, nose normal. [] Eyes: PERRLA, EOMI, conjunctiva normal, no discharge. [] Neck: Normal range of motion, no tenderness, supple, no stridor. [] Cardiovascular: Tachycardia, regular rhythm, peripheral pulses: 1+ dorsalis pedis bilateral lower extremities. Lungs & Thorax: Diminished breath sounds, no respiratory distress Abdomen: , soft, no tenderness, no masses, no pulsatile masses. [] Skin: Venous stasis changes bilateral lower extremities. Multiple wounds to the right leg without significant drainage. Wounds to the left foot with some purulent malodorous drainage. Back: No tenderness, no CVA tenderness. [] Extremities: 3+ bilateral lower extremity edema with chronic wounds bilaterally with some acute purulent drainage from the right toe wounds. Neurologic: Alert and oriented X 3, normal motor function, decreased sensation bilateral lower extremity Psychologic: Affect normal, judgement normal, mood normal. [] Current Patient Data: Labs: Laboratory Tests Test 12/16/19 08:16 White Blood Count 14.9 x10^3/uL Red Blood Count 3.09 x10^6/uL Hemoglobin 9.8 g/dL Hematocrit 29.2 % Mean Corpuscular Volume 95 fL Mean Corpuscular Hemoglobin 32 pg Mean Corpuscular Hemoglobin Concent 34 g/dL Red Cell Distribution Width 18.4 % Platelet Count 213 x10^3/uL Neutrophils (%) (Auto) 90 % Lymphocytes (%) (Auto) 5 % Monocytes (%) (Auto) 3 % Eosinophils (%) (Auto) 1 % Basophils (%) (Auto) 0 % Neutrophils # (Auto) 13.5 x10^3/uL Lymphocytes # (Auto) 0.8 x10^3/uL Monocytes # (Auto) 0.5 x10^3/uL Eosinophils # (Auto) 0.1 x10^3/uL Basophils # (Auto) 0.1 x10^3/uL Segmented Neutrophils % 83 % Band Neutrophils % 12 % Lymphocytes % 4 % Eosinophils % 1 % Dohle Bodies Few Platelet Estimate Adequate Anisocytosis Slight Prothrombin Time 21.4 SEC Prothromb Time International Ratio 1.9 Activated Partial Thromboplast Time 38 SEC Sodium Level 133 mmol/L Potassium Level 4.3 mmol/L Chloride Level 91 mmol/L Carbon Dioxide Level 29 mmol/L Anion Gap 13 Blood Urea Nitrogen 49 mg/dL Creatinine 8.6 mg/dL Estimated GFR (Cockcroft-Gault) 6.3 BUN/Creatinine Ratio 6 Glucose Level 330 mg/dL Lactic Acid Level 1.7 mmol/L Calcium Level 8.6 mg/dL Total Bilirubin 0.6 mg/dL Aspartate Amino Transf (AST/SGOT) 75 U/L Alanine Aminotransferase (ALT/SGPT) 99 U/L Alkaline Phosphatase 119 U/L Troponin I Quantitative < 0.017 ng/mL Total Protein 7.9 g/dL Albumin 3.0 g/dL Albumin/Globulin Ratio 0.6 Current Medications Medications (Trade) Dose Ordered Sig/Cristian Route PRN Reason Start Time Stop Time Status Last Admin Dose Admin Vancomycin HCl 250 ml @ 250 mls/hr 1X ONCE IV 12/16/19 08:00 12/16/19 08:59 DC 12/16/19 08:17 Piperacillin Sod/ Tazobactam Sod 3.375 gm/Sodium Chloride 50 ml @ 100 mls/hr 1X ONCE IV 12/16/19 08:00 12/16/19 08:29 DC Ondansetron HCl (Zofran) 4 mg 1X ONCE IVP 12/16/19 08:15 12/16/19 08:23 DC Acetaminophen (Tylenol) 1,000 mg 1X ONCE PO 12/16/19 08:30 12/16/19 08:33 DC 12/16/19 08:34 Vital Signs: Vital Signs Date Time Temp Pulse Resp B/P (MAP) Pulse Ox O2 Delivery O2 Flow Rate FiO2 12/16/19 07:32 102.0 113 17 209/96 (133) 2 Nasal Cannula 102.0 EKG: EKG: [] EKG interpreted by id sinus tachycardia with a rate of 104 left axis deviation first-degree AV block left anterior hemiblock nonspecific ST changes Radiology/Procedures: Radiology/Procedures: [][facility] [address] [place], [place] [id number] IMAGING REPORT Signed PATIENT: ELENITA SHEPHERD ACCOUNT: [id number] : 1955 LOCATION: ER AGE: 64 SEX: M EXAM STATUS: PRE ER ORD. PHYSICIAN: LIVIA HAWLEY MD REASON: fever PROCEDURE: PORTABLE CHEST 1V EXAM: CHEST ONE VIEW. HISTORY: Fever. COMPARISON: 12/04/2019. FINDINGS: A frontal view of the chest is obtained. There are mild bilateral basilar predominant interstitial infiltrates. There is no pneumothorax or pleural effusion. The heart is not enlarged. IMPRESSION: 1. Correlate for mild pulmonary edema versus atypical pneumonia. Electronically signed by: Jonnathan Dwyer MD (12/16/2019 8:35 AM) [id number] DICTATED and SIGNED BY: CANDELARIO DWYER MD DATE: 12/16/1935 Course & Med Decision Making: Course & Med Decision Making Pertinent Labs and Imaging studies reviewed. (See chart for details) [] 64-year-old male comes from dialysis without receiving any treatment today with a fever and generalized weakness. On assessment patient found to have malodorous discharge from his left leg. Patient was started on broad-spectrum antibiotics. Patient also has a chronic cough and either volume overload versus atypical infection on chest x-ray therefore he will be swab for coronavirus. I discussed the case with Dr. Vera who will admit. Consults have been placed with nephrology as well as wound care. Patient is hypertensive here but due to his infection I do not want to lower that, I think he needs dialysis this morning. Patient not given sepsis fluids due to volume overload on x-ray and a normal lactate. Jonna Disclaimer: Jonna Disclaimer: This electronic medical record was generated, in whole or in part, using a voice recognition dictation system. Departure Departure Impression: Primary Impression: Cellulitis of left lower extremity Additional Impressions: Fever ESRD (end stage renal disease) Disposition: ADMITTED INPATIENT Admitting Physician: DAMION SÁNCHEZ) Condition: STABLE Referrals: HIGINIO WISE MD (PCP) Justicifation of Admission Dx: Justifications for Admission: Justification of Admission Dx: Yes Chronic Renal Failure: Hypertension Cellulitis: Cellulitis LIVIA HAWLEY MD Dec 16, 2019 07:57
[2019-12-16] MEDS ORDERED: VANCOMYCIN 1GM IVPB FOR OMNI 250 ML IV ONE (08:00)
[2019-12-16] MEDS ORDERED: PIPERACILLIN/TAZOBACTAM 3.375 GM in IV NORMAL SALINE 50ML 50 ML IV ONE (08:00)
[2019-12-16] MEDS ORDERED: ONDANSETRON PF 4 MG/2 ML VIAL. IVP ONE (08:15)
[2019-12-16 08:25] LABS: BASO # 0.1 x10^3/uL (0.0-0.2); BASO % 0 % (0-3); EOS # 0.1 x10^3/uL (0.0-0.7); EOS % 1 % (0-3); HEMATOCRIT 29.2 % (39.0-53.0); HEMOGLOBIN 9.8 g/dL (13.0-17.5); LYMPH # 0.8 x10^3/uL (1.0-4.8); LYMPH % 5 % (24-48); MEAN CORPUSCULAR HEMOGLOBIN 32 pg (25-35); MEAN CORPUSCULAR HGB CONC 34 g/dL (31-37); MEAN CORPUSCULAR VOLUME 95 fL (79-100); MONO # 0.5 x10^3/uL (0.0-1.1); MONO % 3 % (0-9); NEUT # 13.5 x10^3/uL (1.8-7.7); NEUT % 90 % (31-73); PLATELET COUNT 213 x10^3/uL (140-400); RED BLOOD COUNT 3.09 x10^6/uL (4.30-5.70); RED CELL DISTRIBUTION WIDTH 18.4 % (11.5-14.5); WHITE BLOOD COUNT 14.9 x10^3/uL (4.0-11.0)
[2019-12-16] MEDS ORDERED: ACETAMINOPHEN 500 MG TABLET PO ONE (08:30)
[2019-12-16 08:34] LABS: PROTHROMBIN TIME PATIENT 21.4 SEC (11.7-14.0)
--- NOTE | 2019-12-16 08:35 | EKG ---
[facility] [address] [place] [address] Test Date: 2019-12-16 Test Time: 08:01:42 Pat Name: ELENITA SHEPHERD Department: Room: Gender: M Travel Services Professional: : 1955 Requested By: LIVIA HAWLEY Order Number: [id number] Reading MD: Measurements Intervals [place] Rate: 104 P: 48 RI: 202 QRS: -52 QRSD: 130 T: 91 QT: 354 QTc: 466 Interpretive Statements SINUS TACHYCARDIA PROLONGED RI INTERVAL LEFT ATRIAL ABNORMALITY ABNORMAL LEFT AXIS DEVIATION LEFT ANTERIOR FASCICULAR BLOCK NON SPECIFIC INTRAVENTRICULAR BLOCK QRS(T) CONTOUR ABNORMALITY CONSIDER ANTEROSEPTAL MYOCARDIAL DAMAGE ABNORMAL ECG RI6.02 No previous ECG available for comparison
--- NOTE | 2019-12-16 08:38 | RAD ---
EXAM: CHEST ONE VIEW. HISTORY: Fever. COMPARISON: 12/04/2019. FINDINGS: A frontal view of the chest is obtained. There are mild bilateral basilar predominant interstitial infiltrates. There is no pneumothorax or pleural effusion. The heart is not enlarged. IMPRESSION: 1. Correlate for mild pulmonary edema versus atypical pneumonia. Electronically signed by: Jonnathan Dwyer MD (12/16/2019 8:35 AM) [id number]
[2019-12-16 08:44] LABS: CALCIUM 8.6 mg/dL (8.5-10.1); CREATININE 8.6 mg/dL (0.7-1.3); GFR 6.3; POTASSIUM 4.3 mmol/L (3.5-5.1)
[2019-12-16 08:48] LABS: ALBUMIN/GLOBULIN RATIO 0.6 (1.0-1.7); TOTAL BILIRUBIN 0.6 mg/dL (0.2-1.0); TOTAL PROTEIN 7.9 g/dL (6.4-8.2)
[2019-12-16 08:59] LABS: % BANDS 12 % (0-9); % EOS 1 % (0-5); % LYMPHS 4 % (24-48); % SEGS 83 % (35-66); ANISOCYTOSIS SLIGHT; PLT ESTIMATE ADEQUATE (ADEQUATE)
[2019-12-16] MEDS ORDERED: BISACODYL 10 MG SUPP.RECT. PR PRN (10:30)
[2019-12-16] MEDS ORDERED: MORPHINE SULFATE 2 MG/ML VIAL. IV PRN (10:30)
[2019-12-16] MEDS ORDERED: ONDANSETRON PF 4 MG/2 ML VIAL. IVP PRN (10:30)
[2019-12-16] MEDS ORDERED: ACETAMINOPHEN 325 MG TABLET. PO PRN (10:30)
--- NOTE | 2019-12-16 10:30 | NUR ---
Patient arrived to room 656 via bed from ER around 1030. Patient A&OX4. BP elevated otherwise VSS. The patient, ELENITA SHEPHERD, 64 y/o, M admitted by DENISE LOPEZ MD, was given written information regarding hospital policies, unit procedures and contact persons. Valuables were checked and noted. Will continue to monitor.
[2019-12-16 11:00] VITALS: BP 224/106
[2019-12-16] MEDS ORDERED: ACETAMINOPHEN 500 MG TABLET PO PRN (11:00)
[2019-12-16] MEDS ORDERED: TEMAZEPAM 7.5 MG CAPSULE PO PRN (11:00)
[2019-12-16] MEDS ORDERED: DEXTROSE 50% 25 GM / 50ML DISP.SYRIN. IV PRN (11:00)
[2019-12-16] MEDS ORDERED: VANCOMYCIN 1 GM in IV NORMAL SALINE 250ML 250 ML IV ONE (11:15)
[2019-12-16] MEDS ORDERED: TEMA15CA PO (11:34)
[2019-12-16] MEDS ORDERED: LOSA-73 PO (11:34)
[2019-12-16] MEDS ORDERED: VERA80TA4 PO (11:34)
[2019-12-16] MEDS: INSULIN LISPRO 300 UNITS/3 ML VIAL. SQ SCH ×2 (12:00→17:00)
--- NOTE | 2019-12-16 12:11 | PDOC2 ---
CONSULT Date of Consult Date of Consult DATE: 12/16/19 TIME: 12:04 Reason for Consult Reason for Consult: ESRD Source Source: Chart review, Patient History of Present Illness Reason for Visit: Pt a 64 yo CM w/ PMHx ESRD on HD, morbid obesity, HTN, prior DVT and PE 2010 , DM2, chronic LE wounds, anemia presents with a 1 day history of fever.He went to the dialysis and complained of not feeling well. He was noted to have a fever 101. Patient has a cough that is chronic in nature. Patient was tested for coronavirus a week ago was negative. Patient has got chronic wounds of his bilateral lower extremities at which he sees wound care and states he has no new complaints with this. Patient has generalized weakness. Patient has some mild shortness of breath. Symptoms are not alleviated by anything but his weakness is worse with exertion. Denies any N/V. He reports he has chronic diarrhea since having colon surgery 5 years ago. Denies any headache or visual symptoms.Denies chest pain, fever, chills. He has a chronic cough. He was admitted in September for Shortness of breath He had LE Fistulogram on 09/27/2019 Proximal outflow vein stenosis, and left subclavian vein stenosis treated with balloon angioplasty. Past Medical History Cardiovascular: HTN, Hyperlipidemia Pulmonary: COPD, Other GI: Other Renal/: Chronic renal insuff Endocrine: Diabetes Past Surgical History Past Surgical History: Colectomy, Colon Resection, Other Family History Family History: Cancer, Diabetes, Hypertension Social History ALCOHOL: none Drugs: None Lives: with Family Current Problem List Problem List Problems Medical Problems: (1) Cellulitis of left lower extremity Status: Acute (2) ESRD (end stage renal disease) Status: Acute (3) Fever Status: Acute Current Medications Current Medications Current Medications Vancomycin HCl 250 ml @ 250 mls/hr 1X ONCE IV Last administered on 12/16/19at 08:17; Start 12/16/19 at 08:00; Stop 12/16/19 at 08:59; Status DC Piperacillin Sod/ Tazobactam Sod 3.375 gm/Sodium Chloride 50 ml @ 100 mls/hr 1X ONCE IV Last administered on 12/16/19at 09:30; Start 12/16/19 at 08:00; Stop 12/16/19 at 08:29; Status DC Ondansetron HCl (Zofran) 4 mg 1X ONCE IVP ; Start 12/16/19 at 08:15; Stop 12/16/19 at 08:23; Status DC Acetaminophen (Tylenol) 1,000 mg 1X ONCE PO Last administered on 12/16/19at 08:34; Start 12/16/19 at 08:30; Stop 12/16/19 at 08:33; Status DC Piperacillin Sod/ Tazobactam Sod 2.25 gm/Sodium Chloride 50 ml @ 100 mls/hr Q6HRS IV ; Start 12/16/19 at 13:30 Vancomycin HCl (Vanco Per Pharmacy) 1 each PRN DAILY PRN MC SEE COMMENTS; Start 12/16/19 at 16:00 Ondansetron HCl (Zofran) 4 mg PRN Q6HRS PRN IVP NAUSEA/VOMITING; Start 12/16/19 at 10:30 Morphine Sulfate (Morphine Sulfate) 2 mg PRN Q1HR PRN IV PAIN; Start 12/16/19 at 10:30 Acetaminophen (Tylenol) 650 mg PRN Q6HRS PRN PO Headaches, Temp > 101.5F; Start 12/16/19 at 10:30 Bisacodyl (Dulcolax Supp) 10 mg PRN DAILY PRN [place] CONSTIPATION; Start 12/16/19 at 10:30 Acetaminophen (Tylenol) 500 mg BID PRN PO PAIN; Start 12/16/19 at 11:00 Ascorbic Acid (Vitamin C) 500 mg DAILY PO ; Start 12/16/19 at 11:00 Aspirin (Aspirin Chewable) 81 mg DAILY PO ; Start 12/16/19 at 11:00 Multivitamins (Thera M Plus) 1 tab DAILY PO ; Start 12/16/19 at 11:00 Temazepam (Restoril) 7.5 mg PRN QHS PRN PO INSOMNIA; Start 12/16/19 at 11:00 Warfarin Sodium (Coumadin) 5 mg DAILY@1600 PO ; Start 12/16/19 at 16:00 Vitamin B Complex/ Vitamin C (Cassie-Nyla) 1 tab DAILY PO ; Start 12/16/19 at 11:00 Insulin Glargine (Lantus Syringe) 35 unit BID SQ ; Start 12/16/19 at 21:00 Insulin Human Lispro (HumaLOG) 25 units TIDWMEALS SQ ; Start 12/16/19 at 12:00 Dextrose (Dextrose 50%-Water Syringe) 12.5 gm PRN Q15MIN PRN IV SEE COMMENTS; Start 12/16/19 at 11:00 Warfarin Sodium (Coumadin Per Physician) 1 each PRN DAILY PRN MC SEE COMMENTS; Start 12/16/19 at 11:15 Vancomycin HCl 1 gm/Sodium Chloride 250 ml @ 250 mls/hr 1X ONCE IV ; Start 12/16/19 at 11:15; Stop 12/16/19 at 12:14 Losartan Potassium (Cozaar) 25 mg DAILY PO ; Start 12/16/19 at 12:00 Verapamil HCl (Calan) 160 mg BID PO ; Start 12/16/19 at 12:15 Active Scripts Active Thera-M Tablet (Multivits,Ca,Minerals/Iron/Fa) 1 Each Tablet 1 Tab PO DAILY 30 Days Vitamin C (Ascorbic Acid) 500 Mg Tablet 500 Mg PO DAILY 30 Days Zofran Odt (Ondansetron) 4 Mg Tab.rapdis 4 Mg PO BID PRN Reported Temazepam 15 Mg Capsule 1 Cap PO QHS Losartan Potassium 50 Mg Tablet 25 Mg PO DAILY Verapamil Hcl 80 Mg Tablet 2 Tab PO BID Humalog (Insulin Lispro) 100 Unit/1 Ml Vial 60 Unit SQ DAILYWSUP Lantus Solostar (Insulin Glargine,Hum.rec.anlog) 100 Unit/1 Ml Insuln.pen 35 Unit SQ BIDAC PRN Aspirin 81 Mg Tab.chew 1 Tab PO DAILY Acetaminophen 500 Mg Tablet 1 Tab PO BID PRN Renal Vitamin Tablet (Folic Acid/Vit Bcomp,C) 0.8 Mg Tablet 0.8 Mg PO DAILY Humalog (Insulin Lispro) 100 Unit/1 Ml Insuln.pen 50 Unit SQ BIDACBL Warfarin Sodium 5 Mg Tablet 5 Mg PO DAILY Allergies Allergies: Coded Allergies: No Known Drug Allergies (Unverified , 09/27/19) ROS Review of System Per HPI, rest of the ROS is negative Physical Exam Physical Exam General: No acute distress HEENT: Mucous membr. moist/pink Neck Thick, supple Lungs: (Bibasilar crackles, Non labored Heart: S1S2, RRR, Abdomen: Normal bowel sounds, Soft, No tenderness, Obese, Extremities: No clubbing, No cyanosis,No edema Skin: Right heel ulcer, bilateral breen ulcers and venous stasis dermatitis Neuro: Grossly Normal No [place] Psych/Mental Status: Mental status NL, Mood NL Vital Signs Vital Signs Date Time Temp Pulse Resp B/P (MAP) Pulse Ox O2 Delivery O2 Flow Rate FiO2 12/16/19 11:00 101.3 97 19 224/106 (145) 94 Nasal Cannula 2.0 101.3 Assessment & Plan ESRD - On HD MWF ( Dr. Ortiz) Dialysis today as ordered, [facility] Refusing renal diet HypoNatremia- corrected for Glucose Normal Fever Shortness of breath - Pt does not recall cardiac history ACcess- s/p LE Fistulogram on 09/27/2019 Proximal outflow vein stenosis, and left subclavian vein stenosis treated with balloon angioplasty. HTN Diabetes - type II, sees endocrinology outpatient Obesity Chronic diarrhea Anemia - prior transfusions,Hgb lower than his baseline at recent hospitalization H/o colon cancer and right hemicolectomy H/o DVT and PE, s/p IVC filter, anti-coagulated w/ Warfarin Labs Labs Laboratory Tests Test 12/16/19 08:16 White Blood Count 14.9 x10^3/uL (4.0-11.0) Red Blood Count 3.09 x10^6/uL (4.30-5.70) Hemoglobin 9.8 g/dL (13.0-17.5) Hematocrit 29.2 % (39.0-53.0) Mean Corpuscular Volume 95 fL (79-100) Mean Corpuscular Hemoglobin 32 pg (25-35) Mean Corpuscular Hemoglobin Concent 34 g/dL (31-37) Red Cell Distribution Width 18.4 % (11.5-14.5) Platelet Count 213 x10^3/uL (140-400) Neutrophils (%) (Auto) 90 % (31-73) Lymphocytes (%) (Auto) 5 % (24-48) Monocytes (%) (Auto) 3 % (0-9) Eosinophils (%) (Auto) 1 % (0-3) Basophils (%) (Auto) 0 % (0-3) Neutrophils # (Auto) 13.5 x10^3/uL (1.8-7.7) Lymphocytes # (Auto) 0.8 x10^3/uL (1.0-4.8) Monocytes # (Auto) 0.5 x10^3/uL (0.0-1.1) Eosinophils # (Auto) 0.1 x10^3/uL (0.0-0.7) Basophils # (Auto) 0.1 x10^3/uL (0.0-0.2) Segmented Neutrophils % 83 % (35-66) Band Neutrophils % 12 % (0-9) Lymphocytes % 4 % (24-48) Eosinophils % 1 % (0-5) Dohle Bodies Few Platelet Estimate Adequate (ADEQUATE) Anisocytosis Slight Prothrombin Time 21.4 SEC (11.7-14.0) Prothromb Time International Ratio 1.9 (0.8-1.1) Activated Partial Thromboplast Time 38 SEC (24-38) Sodium Level 133 mmol/L (136-145) Potassium Level 4.3 mmol/L (3.5-5.1) Chloride Level 91 mmol/L (98-107) Carbon Dioxide Level 29 mmol/L (21-32) Anion Gap 13 (6-14) Blood Urea Nitrogen 49 mg/dL (8-26) Creatinine 8.6 mg/dL (0.7-1.3) Estimated GFR (Cockcroft-Gault) 6.3 BUN/Creatinine Ratio 6 (6-20) Glucose Level 330 mg/dL (70-99) Lactic Acid Level 1.7 mmol/L (0.4-2.0) Calcium Level 8.6 mg/dL (8.5-10.1) Total Bilirubin 0.6 mg/dL (0.2-1.0) Aspartate Amino Transf (AST/SGOT) 75 U/L (15-37) Alanine Aminotransferase (ALT/SGPT) 99 U/L (16-63) Alkaline Phosphatase 119 U/L (46-116) Troponin I Quantitative < 0.017 ng/mL (0.000-0.055) Total Protein 7.9 g/dL (6.4-8.2) Albumin 3.0 g/dL (3.4-5.0) Albumin/Globulin Ratio 0.6 (1.0-1.7) Procalcitonin 0.84 ng/mL (0.00-0.10) Laboratory Tests Test 12/16/19 08:16 White Blood Count 14.9 x10^3/uL (4.0-11.0) Red Blood Count 3.09 x10^6/uL (4.30-5.70) Hemoglobin 9.8 g/dL (13.0-17.5) Hematocrit 29.2 % (39.0-53.0) Mean Corpuscular Volume 95 fL (79-100) Mean Corpuscular Hemoglobin 32 pg (25-35) Mean Corpuscular Hemoglobin Concent 34 g/dL (31-37) Red Cell Distribution Width 18.4 % (11.5-14.5) Platelet Count 213 x10^3/uL (140-400) Neutrophils (%) (Auto) 90 % (31-73) Lymphocytes (%) (Auto) 5 % (24-48) Monocytes (%) (Auto) 3 % (0-9) Eosinophils (%) (Auto) 1 % (0-3) Basophils (%) (Auto) 0 % (0-3) Neutrophils # (Auto) 13.5 x10^3/uL (1.8-7.7) Lymphocytes # (Auto) 0.8 x10^3/uL (1.0-4.8) Monocytes # (Auto) 0.5 x10^3/uL (0.0-1.1) Eosinophils # (Auto) 0.1 x10^3/uL (0.0-0.7) Basophils # (Auto) 0.1 x10^3/uL (0.0-0.2) Segmented Neutrophils % 83 % (35-66) Band Neutrophils % 12 % (0-9) Lymphocytes % 4 % (24-48) Eosinophils % 1 % (0-5) Dohle Bodies Few Platelet Estimate Adequate (ADEQUATE) Anisocytosis Slight Prothrombin Time 21.4 SEC (11.7-14.0) Prothromb Time International Ratio 1.9 (0.8-1.1) Activated Partial Thromboplast Time 38 SEC (24-38) Sodium Level 133 mmol/L (136-145) Potassium Level 4.3 mmol/L (3.5-5.1) Chloride Level 91 mmol/L (98-107) Carbon Dioxide Level 29 mmol/L (21-32) Anion Gap 13 (6-14) Blood Urea Nitrogen 49 mg/dL (8-26) Creatinine 8.6 mg/dL (0.7-1.3) Estimated GFR (Cockcroft-Gault) 6.3 BUN/Creatinine Ratio 6 (6-20) Glucose Level 330 mg/dL (70-99) Lactic Acid Level 1.7 mmol/L (0.4-2.0) Calcium Level 8.6 mg/dL (8.5-10.1) Total Bilirubin 0.6 mg/dL (0.2-1.0) Aspartate Amino Transf (AST/SGOT) 75 U/L (15-37) Alanine Aminotransferase (ALT/SGPT) 99 U/L (16-63) Alkaline Phosphatase 119 U/L (46-116) Troponin I Quantitative < 0.017 ng/mL (0.000-0.055) Total Protein 7.9 g/dL (6.4-8.2) Albumin 3.0 g/dL (3.4-5.0) Albumin/Globulin Ratio 0.6 (1.0-1.7) Procalcitonin 0.84 ng/mL (0.00-0.10) Review All relevant outside records, renal labs, imaging studies, telemetry/EKG's were reviewed. Images Images CxR - There are mild bilateral basilar predominant interstitial infiltrates. There is no pneumothorax or pleural effusion. The heart is not enlarged. IMPRESSION: 1. Correlate for mild pulmonary edema versus atypical pneumonia. ANABEL GARSIA MD Dec 16, 2019 12:11
[2019-12-16] MEDS: FOLIC/VIT B COMP W-C (RENAL) TABLET. PO SCH (12:43)
[2019-12-16] MEDS: MULTIVITAMIN with MINERAL TABLET. PO SCH (12:43)
[2019-12-16] MEDS: ASPIRIN CHEWABLE 81 MG TABLET. PO SCH (12:43)
[2019-12-16] MEDS: LOSARTAN POTASSIUM 25 MG TABLET. PO SCH (12:44)
[2019-12-16] MEDS: ASCORBIC ACID 500 MG TABLET PO SCH (12:44)
[2019-12-16] MEDS: VERAPAMIL 40 MG TABLET. PO SCH ×2 (12:45→22:03)
[2019-12-16] MEDS ORDERED: IV NORMAL SALINE 1000ML BAG 1,000 ML IV PRN ×2 (13:38)
[2019-12-16] MEDS ORDERED: diphenhydrAMINE 50 MG/ML VIAL IV PRN ×2 (13:45)
[2019-12-16] MEDS ORDERED: DIALYSIS PATIENT. MC PRN (13:45)
[2019-12-16] MEDS: PIPERACILLIN/TAZOBACTAM 2.25 GM in IV NORMAL SALINE 50ML 50 ML IV SCH ×3 (14:26→22:08)
[2019-12-16 14:36] VITALS: BP 117/92
--- NOTE | 2019-12-16 15:28 | NUR ---
Wound Care: Patient is known to us from the wound care center. Patient was seen in the clinic yesterday with no fever and wound improved. Patient has DFU to right heel. Patient is covid pending. Dressings and photograph of wound left with ISAC Middleton. Dressing of Hydrofera Blue, Drawtex, ABD and kerlix with a double Medi-G left with RN as well as instructions. Change today and Thursday. RN v/u. Please call with any questions regarding wound care for this patient as we will await covid test results.
[2019-12-16] MEDS ORDERED: LIDOCAINE/PRILOCAINE TOPICAL CREAM 5GM TUBE. TP SCH (16:00)
--- NOTE | 2019-12-16 17:49 | PDOC1 ---
History and Physical Date of Admission Date of Admission DATE: 12/16/19 TIME: 17:34 Identification/Chief Complaint Chief Complaint Fever Source Source: Patient History of Present Illness History of Present Illness Patient is a 64-year-old male with a past medical history of end-stage renal disease on hemodialysis M/W/F, who presents to the ER with fever that began this morning. Patient states that he has felt associated weak since this morning as well, and at dialysis he began having a fever of 101. He was sent to the ER prior to receiving his symptoms and his hemodialysis. Patient denies any aggravating or alleviating factors. He does note a chronic cough and shortness of breath, that he attributes to his history of pulmonary embolisms. For this reason he is on chronic warfarin therapy. He states he is followed by wound care on a weekly basis for chronic leg wounds, and was seen by wound care yesterday. Per ED physician, upon removing with the patient's left soft there was purulent drainage from his left foot. Past Medical History Cardiovascular: HTN, Hyperlipidemia Pulmonary: COPD, Other GI: Other Renal/: Chronic renal insuff Endocrine: Diabetes Past Surgical History Past Surgical History: Colectomy, Colon Resection, Other Family History Family History: Cancer, Diabetes, Hypertension Social History Smoke: Quit ALCOHOL: none Drugs: None Current Problem List Problem List Problems Medical Problems: (1) Cellulitis of left lower extremity Status: Acute (2) ESRD (end stage renal disease) Status: Acute (3) Fever Status: Acute Current Medications Current Medications Current Medications Vancomycin HCl 250 ml @ 250 mls/hr 1X ONCE IV Last administered on 12/16/19at 08:17; Start 12/16/19 at 08:00; Stop 12/16/19 at 08:59; Status DC Piperacillin Sod/ Tazobactam Sod 3.375 gm/Sodium Chloride 50 ml @ 100 mls/hr 1X ONCE IV Last administered on 12/16/19at 09:30; Start 12/16/19 at 08:00; Stop 12/16/19 at 08:29; Status DC Ondansetron HCl (Zofran) 4 mg 1X ONCE IVP ; Start 12/16/19 at 08:15; Stop 12/16/19 at 08:23; Status DC Acetaminophen (Tylenol) 1,000 mg 1X ONCE PO Last administered on 12/16/19at 08:34; Start 12/16/19 at 08:30; Stop 12/16/19 at 08:33; Status DC Piperacillin Sod/ Tazobactam Sod 2.25 gm/Sodium Chloride 50 ml @ 100 mls/hr Q6HRS IV Last administered on 12/16/19at 14:26; Start 12/16/19 at 13:30 Vancomycin HCl (Vanco Per Pharmacy) 1 each PRN DAILY PRN MC SEE COMMENTS; Start 12/16/19 at 16:00 Ondansetron HCl (Zofran) 4 mg PRN Q6HRS PRN IVP NAUSEA/VOMITING; Start 12/16/19 at 10:30 Morphine Sulfate (Morphine Sulfate) 2 mg PRN Q1HR PRN IV PAIN; Start 12/16/19 at 10:30 Acetaminophen (Tylenol) 650 mg PRN Q6HRS PRN PO Headaches, Temp > 101.5F; Start 12/16/19 at 10:30 Bisacodyl (Dulcolax Supp) 10 mg PRN DAILY PRN ME CONSTIPATION; Start 12/16/19 at 10:30 Acetaminophen (Tylenol) 500 mg BID PRN PO PAIN; Start 12/16/19 at 11:00 Ascorbic Acid (Vitamin C) 500 mg DAILY PO Last administered on 12/16/19at 12:44; Start 12/16/19 at 11:00 Aspirin (Aspirin Chewable) 81 mg DAILY PO Last administered on 12/16/19at 12:43; Start 12/16/19 at 11:00 Multivitamins (Thera M Plus) 1 tab DAILY PO Last administered on 12/16/19at 12:43; Start 12/16/19 at 11:00 Temazepam (Restoril) 7.5 mg PRN QHS PRN PO INSOMNIA; Start 12/16/19 at 11:00 Warfarin Sodium (Coumadin) 5 mg DAILY@1600 PO ; Start 12/16/19 at 16:00 Vitamin B Complex/ Vitamin C (Cassie-Nyla) 1 tab DAILY PO Last administered on 12/16/19at 12:43; Start 12/16/19 at 11:00 Insulin Glargine (Lantus Syringe) 35 unit BID SQ ; Start 12/16/19 at 21:00 Insulin Human Lispro (HumaLOG) 25 units TIDWMEALS SQ ; Start 12/16/19 at 12:00 Dextrose (Dextrose 50%-Water Syringe) 12.5 gm PRN Q15MIN PRN IV SEE COMMENTS; Start 12/16/19 at 11:00 Warfarin Sodium (Coumadin Per Physician) 1 each PRN DAILY PRN MC SEE COMMENTS; Start 12/16/19 at 11:15 Vancomycin HCl 1 gm/Sodium Chloride 250 ml @ 250 mls/hr 1X ONCE IV Last administered on 12/16/19at 11:15; Start 12/16/19 at 11:15; Stop 12/16/19 at 12:14; Status DC Losartan Potassium (Cozaar) 25 mg DAILY PO Last administered on 12/16/19at 12:44; Start 12/16/19 at 12:00 Verapamil HCl (Calan) 160 mg BID PO Last administered on 12/16/19at 12:45; Start 12/16/19 at 12:15 Sodium Chloride 1,000 ml @ 1,000 mls/hr Q1H PRN IV hypotension; Start 12/16/19 at 13:38; Stop 12/16/19 at 19:37 Diphenhydramine HCl (Benadryl) 25 mg 1X PRN PRN IV ITCHING; Start 12/16/19 at 13:45; Stop 12/17/19 at 13:44 Diphenhydramine HCl (Benadryl) 25 mg 1X PRN PRN IV ITCHING; Start 12/16/19 at 13:45; Stop 12/17/19 at 13:44 Sodium Chloride 1,000 ml @ 400 mls/hr Q2H30M PRN IV PATENCY; Start 12/16/19 at 13:38; Stop 12/17/19 at 01:37 Info (PHARMACY MONITORING -- do not chart) 1 each PRN DAILY PRN MC SEE COMMENTS; Start 12/16/19 at 13:45 Lidocaine/ Prilocaine (Emla) 1 jamila QMWF TP Last administered on 12/16/19at 14:26; Start 12/16/19 at 16:00 Vancomycin HCl (Vancomycin Random Level) 1 each 1X ONCE MC ; Start 12/19/19 at 07:00; Stop 12/19/19 at 07:01 Active Scripts Active Thera-M Tablet (Multivits,Ca,Minerals/Iron/Fa) 1 Each Tablet 1 Tab PO DAILY 30 Days Vitamin C (Ascorbic Acid) 500 Mg Tablet 500 Mg PO DAILY 30 Days Zofran Odt (Ondansetron) 4 Mg Tab.rapdis 4 Mg PO BID PRN Reported Temazepam 15 Mg Capsule 1 Cap PO QHS Losartan Potassium 50 Mg Tablet 25 Mg PO DAILY Verapamil Hcl 80 Mg Tablet 2 Tab PO BID Humalog (Insulin Lispro) 100 Unit/1 Ml Vial 60 Unit SQ DAILYWSUP Lantus Solostar (Insulin Glargine,Hum.rec.anlog) 100 Unit/1 Ml Insuln.pen 35 Unit SQ BIDAC PRN Aspirin 81 Mg Tab.chew 1 Tab PO DAILY Acetaminophen 500 Mg Tablet 1 Tab PO BID PRN Renal Vitamin Tablet (Folic Acid/Vit Bcomp,C) 0.8 Mg Tablet 0.8 Mg PO DAILY Humalog (Insulin Lispro) 100 Unit/1 Ml Insuln.pen 50 Unit SQ BIDACBL Warfarin Sodium 5 Mg Tablet 5 Mg PO DAILY Allergies Allergies: Coded Allergies: No Known Drug Allergies (Unverified , 09/27/19) ROS General: No: Chills, Night Sweats, Fatigue, Malaise, Appetite, Other PSYCHOLOGICAL ROS: No: Anxiety, Behavioral Disorder, Concentration difficultie, Decreased libido, Depression, Disorientation, Hallucinations, Hostility, Irritablity, Memory difficulties, Mood Swings, Obsessive thoughts, Physical abuse, Sexual abuse, Sleep disturbances, Suicidal ideation, Other Eyes: No Blurry vision, No Decreased vision, No Double vision, No Dry eyes, No Excessive tearing, No Eye Pain, No Itchy Eyes, No Loss of vision, No Photophobia, No Scotomata, No Uses contacts, No Uses glasses, No Other HEENT: No: Heacaches, Visual Changes, Hearing change, Nasal congestion, Nasal discharge, Oral lesions, Sinus pain, Sore Throat, Epistaxis, Sneezing, Snoring, Tinnitus, Vertigo, Vocal changes, Other ALLERGY AND IMMUNOLOGY: No: Hives, Insect Bite Sensitivity, Itchy/Watery Eyes, Nasal Congestion, Post Nasal Drip, Seasonal Allergies, Other Hematological and Lymphatic: No: Bleeding Problems, Blood Clots, Blood Transfusions, Brusing, Night Sweats, Pallor, Swollen Lymph Nodes, Other Respiratory: YES: Cough, Shortness of breath, SOB with excertion Cardiovascular: yes Edema; No Chest Pain, No Palpitations, No Lt Headedness, No Other Gastrointestinal: No Nausea, No Vomiting, No Abdominal Pain, No Diarrhea, No Constipation, No Melena, No Hematochezia, No Other Musculoskeletal: No Gait Disturbance, No Joint Pain, No Joint Stiffness, No Joint Swelling, No Muscle Pain, No Muscular Weakness, No Pain In:, No Swelling In:, No Other Skin: Yes Dry Skin Physical Exam General: Alert, Oriented X3, Cooperative, mild distress HEENT: PERRLA Lungs: Normal air movement, Other (Bibasilar Rales) Heart: RRR, no murmurs Cardiovascular: S1, S2 Abdomen: No tenderness, Other (Obese) Extremities: Other (Bilateral pitting edema left knees, left foot with cracked blistered skin and erythema, no evidence of active drainage) Neuro: Normal speech, Sensation intact Psych/Mental Status: Mental status NL, Mood NL Vitals Vitals Vital Signs Date Time Temp Pulse Resp B/P (MAP) Pulse Ox O2 Delivery O2 Flow Rate FiO2 12/16/19 14:36 98.9 106 20 117/92 (100) 93 Nasal Cannula 2.0 98.9 Labs Labs Laboratory Tests Test 12/16/19 08:16 12/16/19 12:20 12/16/19 15:37 White Blood Count 14.9 x10^3/uL (4.0-11.0) Red Blood Count 3.09 x10^6/uL (4.30-5.70) Hemoglobin 9.8 g/dL (13.0-17.5) Hematocrit 29.2 % (39.0-53.0) Mean Corpuscular Volume 95 fL (79-100) Mean Corpuscular Hemoglobin 32 pg (25-35) Mean Corpuscular Hemoglobin Concent 34 g/dL (31-37) Red Cell Distribution Width 18.4 % (11.5-14.5) Platelet Count 213 x10^3/uL (140-400) Neutrophils (%) (Auto) 90 % (31-73) Lymphocytes (%) (Auto) 5 % (24-48) Monocytes (%) (Auto) 3 % (0-9) Eosinophils (%) (Auto) 1 % (0-3) Basophils (%) (Auto) 0 % (0-3) Neutrophils # (Auto) 13.5 x10^3/uL (1.8-7.7) Lymphocytes # (Auto) 0.8 x10^3/uL (1.0-4.8) Monocytes # (Auto) 0.5 x10^3/uL (0.0-1.1) Eosinophils # (Auto) 0.1 x10^3/uL (0.0-0.7) Basophils # (Auto) 0.1 x10^3/uL (0.0-0.2) Segmented Neutrophils % 83 % (35-66) Band Neutrophils % 12 % (0-9) Lymphocytes % 4 % (24-48) Eosinophils % 1 % (0-5) Dohle Bodies Few Platelet Estimate Adequate (ADEQUATE) Anisocytosis Slight Prothrombin Time 21.4 SEC (11.7-14.0) Prothromb Time International Ratio 1.9 (0.8-1.1) Activated Partial Thromboplast Time 38 SEC (24-38) Sodium Level 133 mmol/L (136-145) Potassium Level 4.3 mmol/L (3.5-5.1) Chloride Level 91 mmol/L (98-107) Carbon Dioxide Level 29 mmol/L (21-32) Anion Gap 13 (6-14) Blood Urea Nitrogen 49 mg/dL (8-26) Creatinine 8.6 mg/dL (0.7-1.3) Estimated GFR (Cockcroft-Gault) 6.3 BUN/Creatinine Ratio 6 (6-20) Glucose Level 330 mg/dL (70-99) Lactic Acid Level 1.7 mmol/L (0.4-2.0) Calcium Level 8.6 mg/dL (8.5-10.1) Total Bilirubin 0.6 mg/dL (0.2-1.0) Aspartate Amino Transf (AST/SGOT) 75 U/L (15-37) Alanine Aminotransferase (ALT/SGPT) 99 U/L (16-63) Alkaline Phosphatase 119 U/L (46-116) Troponin I Quantitative < 0.017 ng/mL (0.000-0.055) Total Protein 7.9 g/dL (6.4-8.2) Albumin 3.0 g/dL (3.4-5.0) Albumin/Globulin Ratio 0.6 (1.0-1.7) Procalcitonin 0.84 ng/mL (0.00-0.10) Glucose (Fingerstick) 236 mg/dL (70-99) 237 mg/dL (70-99) Laboratory Tests Test 12/16/19 08:16 12/16/19 12:20 12/16/19 15:37 White Blood Count 14.9 x10^3/uL (4.0-11.0) Red Blood Count 3.09 x10^6/uL (4.30-5.70) Hemoglobin 9.8 g/dL (13.0-17.5) Hematocrit 29.2 % (39.0-53.0) Mean Corpuscular Volume 95 fL (79-100) Mean Corpuscular Hemoglobin 32 pg (25-35) Mean Corpuscular Hemoglobin Concent 34 g/dL (31-37) Red Cell Distribution Width 18.4 % (11.5-14.5) Platelet Count 213 x10^3/uL (140-400) Neutrophils (%) (Auto) 90 % (31-73) Lymphocytes (%) (Auto) 5 % (24-48) Monocytes (%) (Auto) 3 % (0-9) Eosinophils (%) (Auto) 1 % (0-3) Basophils (%) (Auto) 0 % (0-3) Neutrophils # (Auto) 13.5 x10^3/uL (1.8-7.7) Lymphocytes # (Auto) 0.8 x10^3/uL (1.0-4.8) Monocytes # (Auto) 0.5 x10^3/uL (0.0-1.1) Eosinophils # (Auto) 0.1 x10^3/uL (0.0-0.7) Basophils # (Auto) 0.1 x10^3/uL (0.0-0.2) Segmented Neutrophils % 83 % (35-66) Band Neutrophils % 12 % (0-9) Lymphocytes % 4 % (24-48) Eosinophils % 1 % (0-5) Dohle Bodies Few Platelet Estimate Adequate (ADEQUATE) Anisocytosis Slight Prothrombin Time 21.4 SEC (11.7-14.0) Prothromb Time International Ratio 1.9 (0.8-1.1) Activated Partial Thromboplast Time 38 SEC (24-38) Sodium Level 133 mmol/L (136-145) Potassium Level 4.3 mmol/L (3.5-5.1) Chloride Level 91 mmol/L (98-107) Carbon Dioxide Level 29 mmol/L (21-32) Anion Gap 13 (6-14) Blood Urea Nitrogen 49 mg/dL (8-26) Creatinine 8.6 mg/dL (0.7-1.3) Estimated GFR (Cockcroft-Gault) 6.3 BUN/Creatinine Ratio 6 (6-20) Glucose Level 330 mg/dL (70-99) Lactic Acid Level 1.7 mmol/L (0.4-2.0) Calcium Level 8.6 mg/dL (8.5-10.1) Total Bilirubin 0.6 mg/dL (0.2-1.0) Aspartate Amino Transf (AST/SGOT) 75 U/L (15-37) Alanine Aminotransferase (ALT/SGPT) 99 U/L (16-63) Alkaline Phosphatase 119 U/L (46-116) Troponin I Quantitative < 0.017 ng/mL (0.000-0.055) Total Protein 7.9 g/dL (6.4-8.2) Albumin 3.0 g/dL (3.4-5.0) Albumin/Globulin Ratio 0.6 (1.0-1.7) Procalcitonin 0.84 ng/mL (0.00-0.10) Glucose (Fingerstick) 236 mg/dL (70-99) 237 mg/dL (70-99) VTE Prophylaxis Ordered VTE Prophylaxis Devices: Yes VTE Pharmacological Prophylaxi: Yes Assessment/Plan Assessment/Plan Fever, cellulitis, sepsis, severe hypertension, type 2 diabetes with hyperglycemia, malnutrition We will initiate broad-spectrum antibiotics to cover for MRSA cellulitis. Will obtain skin culture. Blood cultures pending. Procalcitonin elevated indicating bacterial infection. Chest x-ray consistent with pulmonary edema versus atypical pneumonia, but given patient's history likely edema. Consulted been placed to nephrology to manage patient's end-stage renal disease. Patient states that his white blood count has been a "roller coaster for years ". States he has been previously evaluated by infectious disease without definitive answer. Patient also notes a negative COVID-19 test 1 week ago. VTE prophylaxis warfarin. Full code. DENISE LOPEZ MD Dec 16, 2019 17:49
[2019-12-16] MEDS: VANCOMYCIN PER PHARMACY MC PRN (20:16)
--- NOTE | 2019-12-16 20:24 | NUR ---
Pharmacy Vancomycin Dosing Note S:Consulted to monitor and dose vancomycin started 12/16/19. O:ELENITA SHEPHERD is a 64 year old M with Cellulitis . Height: 6 feet, 4 inches Weight: 148.129332 kg Lithia Body Weight: 86.80 Adjusted Body Weight: 111.28 Dosing Weight: Actual Other Antibiotics: zosyn LABS: Last BUN: Last Creatinine: Creatinine Clearance: 12 mL/min Last WBC: 14.9 Last Procalcitonin: 0.84 Tmax (past 24 hours): 102 Microbiology: I/O: Drug Levels: Last level: on at Last dose given 12/16/19 at 1100 Vancomycin Dosing: Loading Dose: 2000 mg x1 Dosing Weight: Actual Target Trough: 10-20 A: Based on: WEIGHT AND RENAL FUNCTION (DIALYSIS MWF) P: 1. VANCOMYCIN 1GM GIVEN AT 0800 AND 1GM GIVEN AT 1100 2. Follow up Random level on 12/19/19 at 07AM 3. Pharmacy will continue to monitor, follow and adjust therapy as needed. PAULINE GUAN RPH, 12/16/192023
[2019-12-16] MEDS: WARFARIN 5 MG TABLET. PO SCH (22:06)
[2019-12-16] MEDS: INSULIN GLARGINE SYRINGE. SQ SCH (22:49)
[2019-12-16 23:00] VITALS: BP 166/72
[2019-12-17] MEDS: PIPERACILLIN/TAZOBACTAM 2.25 GM in IV NORMAL SALINE 50ML 50 ML IV SCH ×4 (01:56→23:35)
[2019-12-17 03:00] VITALS: BP 113/55
[2019-12-17 03:54] LABS: BASO # 0.1 x10^3/uL (0.0-0.2); BASO % 0 % (0-3); EOS # 0.1 x10^3/uL (0.0-0.7); EOS % 1 % (0-3); HEMOGLOBIN 9.1 g/dL (13.0-17.5); LYMPH # 0.9 x10^3/uL (1.0-4.8); LYMPH % 8 % (24-48); MEAN CORPUSCULAR HEMOGLOBIN 32 pg (25-35); MEAN CORPUSCULAR HGB CONC 34 g/dL (31-37); MEAN CORPUSCULAR VOLUME 93 fL (79-100); MONO # 0.6 x10^3/uL (0.0-1.1); MONO % 5 % (0-9); NEUT # 9.9 x10^3/uL (1.8-7.7); NEUT % 86 % (31-73); PLATELET COUNT 189 x10^3/uL (140-400); RED BLOOD COUNT 2.89 x10^6/uL (4.30-5.70); RED CELL DISTRIBUTION WIDTH 18.2 % (11.5-14.5); WHITE BLOOD COUNT 11.5 x10^3/uL (4.0-11.0)
[2019-12-17 04:14] LABS: CALCIUM 8.9 mg/dL (8.5-10.1); CREATININE 6.9 mg/dL (0.7-1.3); GFR 8.1; POTASSIUM 3.8 mmol/L (3.5-5.1)
[2019-12-17 07:25] VITALS: BP 122/59
[2019-12-17] MEDS: INSULIN LISPRO 300 UNITS/3 ML VIAL. SQ SCH ×3 (08:00→16:44)
[2019-12-17] MEDS: VERAPAMIL 40 MG TABLET. PO SCH ×2 (09:08→21:24)
[2019-12-17] MEDS: MULTIVITAMIN with MINERAL TABLET. PO SCH (09:08)
[2019-12-17] MEDS: ASPIRIN CHEWABLE 81 MG TABLET. PO SCH (09:08)
[2019-12-17] MEDS: LOSARTAN POTASSIUM 25 MG TABLET. PO SCH (09:08)
[2019-12-17] MEDS: FOLIC/VIT B COMP W-C (RENAL) TABLET. PO SCH (09:08)
[2019-12-17] MEDS: ASCORBIC ACID 500 MG TABLET PO SCH (09:08)
[2019-12-17 09:30] LABS: PROTHROMBIN TIME PATIENT 22.3 SEC (11.7-14.0)
[2019-12-17] MEDS: INSULIN GLARGINE SYRINGE. SQ SCH ×2 (09:44→21:28)
[2019-12-17 11:27] VITALS: BP 105/55
--- NOTE | 2019-12-17 12:37 | PDOC ---
[employer] PROGRESS NOTE Date of Service DOS: DATE: 12/17/19 TIME: 12:36 Chief Complaint Chief Complaint A/P: Sepsis RLE cellulitis Malignant hypertension Type 2 diabetes with hyperglycemia Severe protein calorie malnutrition ESRD on HD Pulmonary edema FEN - Renal ADA diet PPX - warfarin Full code Dispo - inpatient History of Present Illness History of Present Illness Mr Denny is a 64-year-old male with a past medical history of end-stage renal disease on hemodialysis M/W/F, who presents to the ER with fever that began this morning. Patient states that he has felt associated weak since this morning as well, and at dialysis he began having a fever of 101. He was sent to the ER prior to receiving his symptoms and his hemodialysis. Patient denies any aggravating or alleviating factors. He does note a chronic cough and shortness of breath, that he attributes to his history of pulmonary embolisms. For this reason he is on chronic warfarin therapy. He states he is followed by wound care on a weekly basis for chronic leg wounds, and was seen by wound care yesterday. Per ED physician, upon removing with the patient's left soft there was purulent drainage from his left foot. Febrile to 101.7 overnight. He tells me he is feeling less short of breath. Notes he feels fever and chills during his dialysis runs lately. Blood culture positive today for GPC in clusters. His right heel wound is examined, looks clean, however the rest of his right leg has multiple open sores in various stages of healing and his posterior calf area is hard, tender, hot and red. Vitals/I&O Vitals/I&O: Vital Signs Date Time Temp Pulse Resp B/P (MAP) Pulse Ox O2 Delivery O2 Flow Rate FiO2 12/17/19 11:27 98.0 72 18 105/55 (72) 96 Nasal Cannula 2.0 98.0 I & O 12/16/19 12/16/19 12/17/19 15:00 23:00 07:00 Intake Total 550 ml 450 ml 650 ml Balance 550 ml 450 ml 650 ml Physical Exam General: Alert, Oriented X3, Cooperative, mild distress Lungs: Clear, Crackles Abdomen: No tenderness, Other (Obese) Extremities: Other (Bilateral pitting edema left knees, left foot with cracked blistered skin and erythema, no evidence of active drainage) Labs Labs: Laboratory Tests Test 12/16/19 15:37 8/21/20 20:58 12/17/19 03:40 12/17/19 07:39 Glucose (Fingerstick) 237 mg/dL (70-99) 142 mg/dL (70-99) 135 mg/dL (70-99) White Blood Count 11.5 x10^3/uL (4.0-11.0) Red Blood Count 2.89 x10^6/uL (4.30-5.70) Hemoglobin 9.1 g/dL (13.0-17.5) Hematocrit 27.0 % (39.0-53.0) Mean Corpuscular Volume 93 fL (79-100) Mean Corpuscular Hemoglobin 32 pg (25-35) Mean Corpuscular Hemoglobin Concent 34 g/dL (31-37) Red Cell Distribution Width 18.2 % (11.5-14.5) Platelet Count 189 x10^3/uL (140-400) Neutrophils (%) (Auto) 86 % (31-73) Lymphocytes (%) (Auto) 8 % (24-48) Monocytes (%) (Auto) 5 % (0-9) Eosinophils (%) (Auto) 1 % (0-3) Basophils (%) (Auto) 0 % (0-3) Neutrophils # (Auto) 9.9 x10^3/uL (1.8-7.7) Lymphocytes # (Auto) 0.9 x10^3/uL (1.0-4.8) Monocytes # (Auto) 0.6 x10^3/uL (0.0-1.1) Eosinophils # (Auto) 0.1 x10^3/uL (0.0-0.7) Basophils # (Auto) 0.1 x10^3/uL (0.0-0.2) Sodium Level 134 mmol/L (136-145) Potassium Level 3.8 mmol/L (3.5-5.1) Chloride Level 96 mmol/L (98-107) Carbon Dioxide Level 32 mmol/L (21-32) Anion Gap 6 (6-14) Blood Urea Nitrogen 36 mg/dL (8-26) Creatinine 6.9 mg/dL (0.7-1.3) Estimated GFR (Cockcroft-Gault) 8.1 Glucose Level 167 mg/dL (70-99) Calcium Level 8.9 mg/dL (8.5-10.1) Test 12/17/19 08:57 12/17/19 10:39 Prothrombin Time 22.3 SEC (11.7-14.0) Prothromb Time International Ratio 2.0 (0.8-1.1) Glucose (Fingerstick) 165 mg/dL (70-99) Assessment and Plan Assessmemt and Plan Problems Medical Problems: (1) Cellulitis of left lower extremity Status: Acute (2) ESRD (end stage renal disease) Status: Acute (3) Fever Status: Acute Comment Review of Relevant I have reviewed the following items joyce (where applicable) has been applied. Medications: Current Medications Medications (Trade) Dose Ordered Sig/Cristian Route PRN Reason Start Time Stop Time Status Last Admin Dose Admin Piperacillin Sod/ Tazobactam Sod 2.25 gm/Sodium Chloride 50 ml @ 100 mls/hr Q6HRS IV 12/16/19 13:30 12/17/19 12:16 Vancomycin HCl (Vanco Per Pharmacy) 1 each PRN DAILY PRN MC SEE COMMENTS 12/16/19 16:00 12/16/19 20:16 Warfarin Sodium (Coumadin) 5 mg DAILY@1600 PO 12/16/19 16:00 12/16/19 22:06 Insulin Glargine (Lantus Syringe) 35 unit BID SQ 12/16/19 21:00 12/17/19 09:44 Lidocaine/ Prilocaine (Emla) 1 jamila QMWF TP 12/16/19 16:00 12/16/19 14:26 Justicifation of Admission Dx: Justifications for Admission: Justification of Admission Dx: Yes Chronic Renal Failure: Hypertension Cellulitis: Cellulitis ALEX ARENAS MD Dec 17, 2019 12:37
[2019-12-17] MEDS: LACTOBACILLUS RHAMNOSUS GG 1 CAPSULE. PO SCH ×2 (14:13→21:24)
--- NOTE | 2019-12-17 14:13 | PDOC ---
DATE OF SERVICE DATE: 12/17/19 TIME: 14:10 SUBJECTIVE ROS General: No acute distress HEENT: Mucous membr. moist/pink Neck Thick, supple Lungs: (Bibasilar crackles, Non labored Heart: S1S2, RRR, Abdomen: Normal bowel sounds, Soft, No tenderness, Obese, Extremities: No clubbing, No cyanosis,No edema Skin: Right heel ulcer, bilateral breen ulcers and venous stasis dermatitis Neuro: Grossly Normal No mayfield Psych/Mental Status: Mental status NL, Mood NL OBJECTIVE Vital Signs Vital Signs Date Time Temp Pulse Resp B/P (MAP) Pulse Ox O2 Delivery O2 Flow Rate FiO2 12/17/19 11:27 98.0 72 18 105/55 (72) 96 Nasal Cannula 2.0 98.0 I & 0 Intake and Output 12/17/19 07:00 Intake Total 1650 ml Balance 1650 ml Intake Oral 950 ml IV Total 250 ml Other 450 ml PHYSICAL EXAM Physical Exam General: Alert, Oriented X3, Cooperative, mild distress HEENT: PERRLA Lungs: cta, non labored Heart: RRR, no murmurs Cardiovascular: S1, S2 Abdomen: No tenderness, Other (Obese) Extremities:, left foot with blistered skin and erythema, no evidence of active drainage) Neuro: Normal speech, Sensation intact Psych/Mental Status: Mental status NL, Mood NL DIAGNOSIS/ASSESSMENT Assessment & Plan ESRD - On HD MWF ( Dr. Ortiz) No indication for HD today Refusing renal diet HypoNatremia- corrected for Glucose Normal Fever - CoViD negative 12/16 Shortness of breath - Pt does not recall cardiac history ACcess- s/p LE Fistulogram on 09/27/2019 Proximal outflow vein stenosis, and left subclavian vein stenosis treated with balloon angioplasty. HTN - Low normal Diabetes - type II, sees endocrinology outpatient Obesity Chronic diarrhea Anemia - prior transfusions,Hgb lower than his baseline at recent hospitalization H/o colon cancer and right hemicolectomy H/o DVT and PE, s/p IVC filter, anti-coagulated w/ Warfarin COMMENT/RELEVANT DATA Meds Current Medications Medications (Trade) Dose Ordered Sig/Cristian Start Time Stop Time Status Last Admin Dose Admin Acetaminophen (Tylenol) 500 mg BID PRN 12/16/19 11:00 Ascorbic Acid (Vitamin C) 500 mg DAILY 12/16/19 11:00 12/17/19 09:08 500 MG Aspirin (Aspirin Chewable) 81 mg DAILY 12/16/19 11:00 12/17/19 09:08 81 MG Bisacodyl (Dulcolax Supp) 10 mg PRN DAILY PRN 12/16/19 10:30 Dextrose (Dextrose 50%-Water Syringe) 12.5 gm PRN Q15MIN PRN 12/16/19 11:00 Diphenhydramine HCl (Benadryl) 25 mg 1X PRN PRN 12/16/19 13:45 12/17/19 13:44 DC Info (PHARMACY MONITORING -- do not chart) 1 each PRN DAILY PRN 12/16/19 13:45 Insulin Glargine (Lantus Syringe) 35 unit BID 12/16/19 21:00 12/17/19 09:44 35 UNIT Insulin Human Lispro (HumaLOG) 25 units TIDWMEALS 12/16/19 12:00 12/17/19 12:15 25 UNITS Lactobacillus Rhamnosus (Culturelle) 1 cap BID 12/17/19 13:00 Lidocaine/ Prilocaine (Emla) 1 jamila QMWF 12/16/19 16:00 12/16/19 14:26 1 JAMILA Losartan Potassium (Cozaar) 25 mg DAILY 12/16/19 12:00 12/17/19 09:08 25 MG Morphine Sulfate (Morphine Sulfate) 2 mg PRN Q1HR PRN 12/16/19 10:30 Multivitamins (Thera M Plus) 1 tab DAILY 12/16/19 11:00 12/17/19 09:08 1 TAB Ondansetron HCl (Zofran) 4 mg PRN Q6HRS PRN 12/16/19 10:30 Piperacillin Sod/ Tazobactam Sod 2.25 gm/Sodium Chloride 50 ml @ 100 mls/hr Q6HRS 12/16/19 13:30 12/17/19 12:16 100 MLS/HR Piperacillin Sod/ Tazobactam Sod 3.375 gm/Sodium Chloride 50 ml @ 100 mls/hr 1X ONCE 12/16/19 08:00 12/16/19 08:29 DC 12/16/19 09:30 100 MLS/HR Sodium Chloride 1,000 ml @ 400 mls/hr Q2H30M PRN 12/16/19 13:38 12/17/19 01:37 DC Temazepam (Restoril) 7.5 mg PRN QHS PRN 12/16/19 11:00 12/16/19 22:04 7.5 MG Vancomycin HCl (Vanco Per Pharmacy) 1 each PRN DAILY PRN 12/16/19 16:00 12/16/19 20:16 1 EACH Vancomycin HCl (Vancomycin Random Level) 1 each 1X ONCE 12/19/19 07:00 12/19/19 07:01 Vancomycin HCl 1 gm/Sodium Chloride 250 ml @ 250 mls/hr 1X ONCE 12/16/19 11:15 12/16/19 12:14 DC 12/16/19 11:15 250 MLS/HR Verapamil HCl (Calan) 160 mg BID 12/16/19 12:15 12/17/19 09:08 160 MG Vitamin B Complex/ Vitamin C (Cassie-Nyla) 1 tab DAILY 12/16/19 11:00 12/17/19 09:08 1 TAB Warfarin Sodium (Coumadin Per Physician) 1 each PRN DAILY PRN 12/16/19 11:15 12/17/19 12:06 1 EACH Warfarin Sodium (Coumadin) 5 mg DAILY@1600 12/16/19 16:00 12/16/19 22:06 5 MG Lab Laboratory Tests Test 12/16/19 15:37 12/16/19 20:58 12/17/19 03:40 12/17/19 07:39 Glucose (Fingerstick) 237 mg/dL (70-99) 142 mg/dL (70-99) 135 mg/dL (70-99) White Blood Count 11.5 x10^3/uL (4.0-11.0) Red Blood Count 2.89 x10^6/uL (4.30-5.70) Hemoglobin 9.1 g/dL (13.0-17.5) Hematocrit 27.0 % (39.0-53.0) Mean Corpuscular Volume 93 fL (79-100) Mean Corpuscular Hemoglobin 32 pg (25-35) Mean Corpuscular Hemoglobin Concent 34 g/dL (31-37) Red Cell Distribution Width 18.2 % (11.5-14.5) Platelet Count 189 x10^3/uL (140-400) Neutrophils (%) (Auto) 86 % (31-73) Lymphocytes (%) (Auto) 8 % (24-48) Monocytes (%) (Auto) 5 % (0-9) Eosinophils (%) (Auto) 1 % (0-3) Basophils (%) (Auto) 0 % (0-3) Neutrophils # (Auto) 9.9 x10^3/uL (1.8-7.7) Lymphocytes # (Auto) 0.9 x10^3/uL (1.0-4.8) Monocytes # (Auto) 0.6 x10^3/uL (0.0-1.1) Eosinophils # (Auto) 0.1 x10^3/uL (0.0-0.7) Basophils # (Auto) 0.1 x10^3/uL (0.0-0.2) Sodium Level 134 mmol/L (136-145) Potassium Level 3.8 mmol/L (3.5-5.1) Chloride Level 96 mmol/L (98-107) Carbon Dioxide Level 32 mmol/L (21-32) Anion Gap 6 (6-14) Blood Urea Nitrogen 36 mg/dL (8-26) Creatinine 6.9 mg/dL (0.7-1.3) Estimated GFR (Cockcroft-Gault) 8.1 Glucose Level 167 mg/dL (70-99) Calcium Level 8.9 mg/dL (8.5-10.1) Test 12/17/19 08:57 12/17/19 10:39 Prothrombin Time 22.3 SEC (11.7-14.0) Prothromb Time International Ratio 2.0 (0.8-1.1) Glucose (Fingerstick) 165 mg/dL (70-99) Results All relevant outside records, renal labs, imaging studies, telemetry/EKG's were reviewed. Justicifation of Admission Dx: Justifications for Admission: Justification of Admission Dx: Yes Chronic Renal Failure: Hypertension Cellulitis: Cellulitis ANABEL GARSIA MD Dec 17, 2019 14:13
[2019-12-17] MEDS: WARFARIN 5 MG TABLET. PO SCH (14:49)
[2019-12-17 15:25] VITALS: BP 134/68
--- NOTE | 2019-12-17 18:13 | NUR ---
report called to Cherri and pt to be transferred to [facility]. Pt let his know and called her about the transfer and being covid negative.
[2019-12-17 19:00] VITALS: BP 167/81
[2019-12-17 23:00] VITALS: BP 152/73
[2019-12-18 03:00] VITALS: BP 148/73
[2019-12-18] MEDS: PIPERACILLIN/TAZOBACTAM 2.25 GM in IV NORMAL SALINE 50ML 50 ML IV SCH ×3 (05:46→21:38)
[2019-12-18 06:00] LABS: BASO # 0.1 x10^3/uL (0.0-0.2); BASO % 1 % (0-3); EOS # 0.3 x10^3/uL (0.0-0.7); EOS % 3 % (0-3); HEMATOCRIT 28.2 % (39.0-53.0); HEMOGLOBIN 9.5 g/dL (13.0-17.5); LYMPH # 1.1 x10^3/uL (1.0-4.8); LYMPH % 11 % (24-48); MEAN CORPUSCULAR HEMOGLOBIN 32 pg (25-35); MEAN CORPUSCULAR HGB CONC 34 g/dL (31-37); MEAN CORPUSCULAR VOLUME 95 fL (79-100); MONO # 0.6 x10^3/uL (0.0-1.1); MONO % 6 % (0-9); NEUT # 7.4 x10^3/uL (1.8-7.7); NEUT % 79 % (31-73); PLATELET COUNT 196 x10^3/uL (140-400); RED BLOOD COUNT 2.96 x10^6/uL (4.30-5.70); RED CELL DISTRIBUTION WIDTH 18.5 % (11.5-14.5); WHITE BLOOD COUNT 9.4 x10^3/uL (4.0-11.0)
[2019-12-18 06:19] LABS: CALCIUM 9.3 mg/dL (8.5-10.1); CREATININE 8.5 mg/dL (0.7-1.3); GFR 6.4; POTASSIUM 4.2 mmol/L (3.5-5.1)
[2019-12-18 07:00] VITALS: BP 128/60
[2019-12-18] MEDS: VANCOMYCIN PER PHARMACY MC PRN (07:26)
[2019-12-18] MEDS: INSULIN LISPRO 300 UNITS/3 ML VIAL. SQ SCH ×3 (07:30→16:22)
[2019-12-18] MEDS: LOSARTAN POTASSIUM 25 MG TABLET. PO SCH (08:33)
[2019-12-18] MEDS: MULTIVITAMIN with MINERAL TABLET. PO SCH (08:33)
[2019-12-18] MEDS: LACTOBACILLUS RHAMNOSUS GG 1 CAPSULE. PO SCH ×2 (08:34→21:38)
[2019-12-18] MEDS: FOLIC/VIT B COMP W-C (RENAL) TABLET. PO SCH (08:34)
[2019-12-18] MEDS: ASCORBIC ACID 500 MG TABLET PO SCH (08:34)
[2019-12-18] MEDS: ASPIRIN CHEWABLE 81 MG TABLET. PO SCH (08:34)
[2019-12-18] MEDS: VERAPAMIL 40 MG TABLET. PO SCH ×2 (08:34→21:38)
[2019-12-18] MEDS: INSULIN GLARGINE SYRINGE. SQ SCH ×2 (08:42→21:44)
--- NOTE | 2019-12-18 08:53 | PDOC ---
[employer] PROGRESS NOTE Date of Service DOS: DATE: 12/18/19 TIME: 08:51 Chief Complaint Chief Complaint A/P: Sepsis RLE cellulitis Right heel wound - looks good to me Malignant hypertension Type 2 diabetes with hyperglycemia Severe protein calorie malnutrition ESRD on HD Pulmonary edema H/o DVT and PE s/p IVC filter H/o colectomy Ventral hernia FEN - Renal ADA diet PPX - warfarin Full code Dispo - inpatient History of Present Illness History of Present Illness Mr Denny is a 64 yo M w/ PMHx ESRD HD M/W/F, who presents to the ER with fever that began this morning. Patient states that he has felt associated weak since this morning as well, and at dialysis he began having a fever of 101. He was sent to the ER prior to receiving his symptoms and his hemodialysis. Patient d enies any aggravating or alleviating factors. He does note a chronic cough and shortness of breath, that he attributes to his history of pulmonary embolisms. For this reason he is on chronic warfarin therapy. He states he is followed by wound care on a weekly basis for chronic leg wounds, and was seen by wound care yesterday. Per ED physician, upon removing with the patient's left soft there was purulent drainage from his left foot. 12/16: Febrile to 101.7 overnight. He tells me he is feeling less short of breath. Notes he feels fever and chills during his dialysis runs lately. Blood culture positive today for GPC in clusters. His right heel wound is examined, looks clean, however the rest of his right leg has multiple open sores in various stages of healing and his posterior calf area is hard, tender, hot and red. Afebrile overnight. Na 125 today. Seen bedside with his . He is off O2 currently. No final culture data. Vitals/I&O Vitals/I&O: Vital Signs Date Time Temp Pulse Resp B/P (MAP) Pulse Ox O2 Delivery O2 Flow Rate FiO2 12/18/19 08:34 72 128/60 12/18/19 07:00 97.8 19 94 Room Air 97.8 12/18/19 03:00 2.0 I & O 12/17/19 12/17/19 12/18/19 15:00 23:00 07:00 Intake Total 780 ml 0 ml 50 ml Balance 780 ml 0 ml 50 ml Physical Exam General: Alert, Oriented X3, Cooperative, mild distress Lungs: Clear, Crackles Abdomen: No tenderness, Other (Obese) Extremities: Other (Bilateral pitting edema left knees, left foot with cracked blistered skin and erythema, no evidence of active drainage) Labs Labs: Laboratory Tests Test 12/17/19 08:57 12/17/19 10:39 12/17/19 16:24 12/17/19 20:40 Prothrombin Time 22.3 SEC (11.7-14.0) Prothromb Time International Ratio 2.0 (0.8-1.1) Glucose (Fingerstick) 165 mg/dL (70-99) 95 mg/dL (70-99) 119 mg/dL (70-99) Test 12/18/19 05:08 12/18/19 07:26 White Blood Count 9.4 x10^3/uL (4.0-11.0) Red Blood Count 2.96 x10^6/uL (4.30-5.70) Hemoglobin 9.5 g/dL (13.0-17.5) Hematocrit 28.2 % (39.0-53.0) Mean Corpuscular Volume 95 fL (79-100) Mean Corpuscular Hemoglobin 32 pg (25-35) Mean Corpuscular Hemoglobin Concent 34 g/dL (31-37) Red Cell Distribution Width 18.5 % (11.5-14.5) Platelet Count 196 x10^3/uL (140-400) Neutrophils (%) (Auto) 79 % (31-73) Lymphocytes (%) (Auto) 11 % (24-48) Monocytes (%) (Auto) 6 % (0-9) Eosinophils (%) (Auto) 3 % (0-3) Basophils (%) (Auto) 1 % (0-3) Neutrophils # (Auto) 7.4 x10^3/uL (1.8-7.7) Lymphocytes # (Auto) 1.1 x10^3/uL (1.0-4.8) Monocytes # (Auto) 0.6 x10^3/uL (0.0-1.1) Eosinophils # (Auto) 0.3 x10^3/uL (0.0-0.7) Basophils # (Auto) 0.1 x10^3/uL (0.0-0.2) Prothrombin Time 26.0 SEC (11.7-14.0) Prothromb Time International Ratio 2.4 (0.8-1.1) Sodium Level 125 mmol/L (136-145) Potassium Level 4.2 mmol/L (3.5-5.1) Chloride Level 89 mmol/L (98-107) Carbon Dioxide Level 21 mmol/L (21-32) Anion Gap 15 (6-14) Blood Urea Nitrogen 50 mg/dL (8-26) Creatinine 8.5 mg/dL (0.7-1.3) Estimated GFR (Cockcroft-Gault) 6.4 Glucose Level 72 mg/dL (70-99) Calcium Level 9.3 mg/dL (8.5-10.1) Glucose (Fingerstick) 84 mg/dL (70-99) Assessment and Plan Assessmemt and Plan Problems Medical Problems: (1) Cellulitis of left lower extremity Status: Acute (2) ESRD (end stage renal disease) Status: Acute (3) Fever Status: Acute Comment Review of Relevant I have reviewed the following items joyce (where applicable) has been applied. Medications: Current Medications Medications (Trade) Dose Ordered Sig/Cristian Route PRN Reason Start Time Stop Time Status Last Admin Dose Admin Lactobacillus Rhamnosus (Culturelle) 1 cap BID PO 12/17/19 13:00 12/18/19 08:34 Justicifation of Admission Dx: Justifications for Admission: Justification of Admission Dx: Yes Chronic Renal Failure: Hypertension Cellulitis: Cellulitis ALEX ARENAS MD Dec 18, 2019 08:53
[2019-12-18 10:51] VITALS: BP 135/64
[2019-12-18] MEDS ORDERED: DAPTOmycin (GENERIC) IVPB 670 MG in IV NORMAL SALINE 50ML 50 ML IV ONE (13:00)
--- NOTE | 2019-12-18 14:52 | PDOC ---
DATE OF SERVICE DATE: 12/18/19 TIME: 14:48 SUBJECTIVE ROS No complaints OBJECTIVE Vital Signs Vital Signs Date Time Temp Pulse Resp B/P (MAP) Pulse Ox O2 Delivery O2 Flow Rate FiO2 12/18/19 10:51 97.7 70 19 135/64 (87) 94 Room Air 97.7 12/18/19 03:00 2.0 I & 0 Intake and Output 12/18/19 07:00 Intake Total 830 ml Balance 830 ml Intake Oral 830 ml PHYSICAL EXAM Physical Exam General: No acute distress HEENT: Mucous membr. moist/pink Neck Thick, supple Lungs: (Bibasilar crackles, Non labored Heart: S1S2, RRR, Abdomen: Normal bowel sounds, Soft, No tenderness, Obese, Extremities: No clubbing, No cyanosis,No edema Skin: Right heel ulcer, bilateral breen ulcers and venous stasis dermatitis Neuro: Grossly Normal No mayfield Psych/Mental Status: Mental status NL, Mood NL DIAGNOSIS/ASSESSMENT Assessment & Plan ESRD - On HD MWF ( Dr. Ortiz) No Indication for HD today HypoNatremia- Na Low today , Glucose normal Monitor , asymptomatic , No e/o Vol Overload Fever Shortness of breath - Pt does not recall cardiac history ACcess- s/p LE Fistulogram on 09/27/2019 Proximal outflow vein stenosis, and l eft subclavian vein stenosis treated with balloon angioplasty. HTN Diabetes - type II, sees endocrinology outpatient Obesity Chronic diarrhea Anemia - prior transfusions,Hgb lower than his baseline at recent hospitalization H/o colon cancer and right hemicolectomy H/o DVT and PE, s/p IVC filter, anti-coagulated w/ Warfarin COMMENT/RELEVANT DATA Meds Current Medications Medications (Trade) Dose Ordered Sig/Cristian Start Time Stop Time Status Last Admin Dose Admin Acetaminophen (Tylenol) 500 mg BID PRN 12/16/19 11:00 Ascorbic Acid (Vitamin C) 500 mg DAILY 12/16/19 11:00 12/18/19 08:34 500 MG Aspirin (Aspirin Chewable) 81 mg DAILY 12/16/19 11:00 12/18/19 08:34 81 MG Bisacodyl (Dulcolax Supp) 10 mg PRN DAILY PRN 12/16/19 10:30 Daptomycin 670 mg/ Sodium Chloride 50 ml @ 100 mls/hr 1X ONCE 12/18/19 13:00 12/18/19 13:29 DC 12/18/19 14:10 100 MLS/HR Dextrose (Dextrose 50%-Water Syringe) 12.5 gm PRN Q15MIN PRN 12/16/19 11:00 Diphenhydramine HCl (Benadryl) 25 mg 1X PRN PRN 12/16/19 13:45 12/17/19 13:44 DC Info (PHARMACY MONITORING -- do not chart) 1 each PRN DAILY PRN 12/16/19 13:45 Insulin Glargine (Lantus Syringe) 35 unit BID 12/16/19 21:00 12/18/19 08:42 35 UNIT Insulin Human Lispro (HumaLOG) 25 units TIDWMEALS 12/16/19 12:00 12/18/19 11:55 25 UNITS Lactobacillus Rhamnosus (Culturelle) 1 cap BID 12/17/19 13:00 12/18/19 08:34 1 CAP Lidocaine/ Prilocaine (Emla) 1 jamila QMWF 12/16/19 16:00 12/16/19 14:26 1 JAMILA Losartan Potassium (Cozaar) 25 mg DAILY 12/16/19 12:00 12/18/19 08:33 25 MG Morphine Sulfate (Morphine Sulfate) 2 mg PRN Q1HR PRN 12/16/19 10:30 Multivitamins (Thera M Plus) 1 tab DAILY 12/16/19 11:00 12/18/19 08:33 1 TAB Ondansetron HCl (Zofran) 4 mg PRN Q6HRS PRN 12/16/19 10:30 Piperacillin Sod/ Tazobactam Sod 2.25 gm/Sodium Chloride 50 ml @ 100 mls/hr Q8HRS 12/18/19 14:00 12/18/19 13:24 100 MLS/HR Piperacillin Sod/ Tazobactam Sod 3.375 gm/Sodium Chloride 50 ml @ 100 mls/hr 1X ONCE 12/16/19 08:00 12/16/19 08:29 DC 12/16/19 09:30 100 MLS/HR Sodium Chloride 1,000 ml @ 400 mls/hr Q2H30M PRN 12/16/19 13:38 12/17/19 01:37 DC Temazepam (Restoril) 7.5 mg PRN QHS PRN 12/16/19 11:00 12/16/19 22:04 7.5 MG Vancomycin HCl (Vanco Per Pharmacy) 1 each PRN DAILY PRN 12/16/19 16:00 12/18/19 07:26 1 EACH Vancomycin HCl (Vancomycin Random Level) 1 each 1X ONCE 12/19/19 07:00 12/19/19 07:01 Vancomycin HCl 1 gm/Sodium Chloride 250 ml @ 250 mls/hr 1X ONCE 12/16/19 11:15 12/16/19 12:14 DC 12/16/19 11:15 250 MLS/HR Verapamil HCl (Calan) 160 mg BID 12/16/19 12:15 12/18/19 08:34 160 MG Vitamin B Complex/ Vitamin C (Cassie-Nyla) 1 tab DAILY 12/16/19 11:00 12/18/19 08:34 1 TAB Warfarin Sodium (Coumadin Per Physician) 1 each PRN DAILY PRN 12/16/19 11:15 12/18/19 07:24 1 EACH Warfarin Sodium (Coumadin) 5 mg DAILY@1600 12/16/19 16:00 12/17/19 14:49 5 MG Lab Laboratory Tests Test 12/17/19 16:24 12/17/19 20:40 12/18/19 05:08 12/18/19 07:26 Glucose (Fingerstick) 95 mg/dL (70-99) 119 mg/dL (70-99) 84 mg/dL (70-99) White Blood Count 9.4 x10^3/uL (4.0-11.0) Red Blood Count 2.96 x10^6/uL (4.30-5.70) Hemoglobin 9.5 g/dL (13.0-17.5) Hematocrit 28.2 % (39.0-53.0) Mean Corpuscular Volume 95 fL (79-100) Mean Corpuscular Hemoglobin 32 pg (25-35) Mean Corpuscular Hemoglobin Concent 34 g/dL (31-37) Red Cell Distribution Width 18.5 % (11.5-14.5) Platelet Count 196 x10^3/uL (140-400) Neutrophils (%) (Auto) 79 % (31-73) Lymphocytes (%) (Auto) 11 % (24-48) Monocytes (%) (Auto) 6 % (0-9) Eosinophils (%) (Auto) 3 % (0-3) Basophils (%) (Auto) 1 % (0-3) Neutrophils # (Auto) 7.4 x10^3/uL (1.8-7.7) Lymphocytes # (Auto) 1.1 x10^3/uL (1.0-4.8) Monocytes # (Auto) 0.6 x10^3/uL (0.0-1.1) Eosinophils # (Auto) 0.3 x10^3/uL (0.0-0.7) Basophils # (Auto) 0.1 x10^3/uL (0.0-0.2) Prothrombin Time 26.0 SEC (11.7-14.0) Prothromb Time International Ratio 2.4 (0.8-1.1) Sodium Level 125 mmol/L (136-145) Potassium Level 4.2 mmol/L (3.5-5.1) Chloride Level 89 mmol/L (98-107) Carbon Dioxide Level 21 mmol/L (21-32) Anion Gap 15 (6-14) Blood Urea Nitrogen 50 mg/dL (8-26) Creatinine 8.5 mg/dL (0.7-1.3) Estimated GFR (Cockcroft-Gault) 6.4 Glucose Level 72 mg/dL (70-99) Calcium Level 9.3 mg/dL (8.5-10.1) Test 12/18/19 11:07 Glucose (Fingerstick) 203 mg/dL (70-99) Results All relevant outside records, renal labs, imaging studies, telemetry/EKG's were reviewed. Justicifation of Admission Dx: Justifications for Admission: Justification of Admission Dx: Yes Chronic Renal Failure: Hypertension Cellulitis: Cellulitis ANABEL GARSIA MD Dec 18, 2019 14:52
[2019-12-18 15:00] VITALS: BP 130/68
[2019-12-18] MEDS: WARFARIN 5 MG TABLET. PO SCH (16:22)
[2019-12-18 19:00] VITALS: BP 150/80
[2019-12-18 23:00] VITALS: BP 164/91
[2019-12-19 03:00] VITALS: BP 189/75
[2019-12-19] MEDS: PIPERACILLIN/TAZOBACTAM 2.25 GM in IV NORMAL SALINE 50ML 50 ML IV SCH ×2 (05:33→14:00)
[2019-12-19 07:00] VITALS: BP 151/73
[2019-12-19] MEDS ORDERED: VANCOMYCIN RANDOM LEVEL. MC ONE (07:00)
[2019-12-19] MEDS: INSULIN LISPRO 300 UNITS/3 ML VIAL. SQ SCH ×2 (07:25→12:46)
[2019-12-19] MEDS: LACTOBACILLUS RHAMNOSUS GG 1 CAPSULE. PO SCH (08:34)
[2019-12-19] MEDS: ASPIRIN CHEWABLE 81 MG TABLET. PO SCH (08:34)
[2019-12-19] MEDS: FOLIC/VIT B COMP W-C (RENAL) TABLET. PO SCH (08:34)
[2019-12-19] MEDS: ASCORBIC ACID 500 MG TABLET PO SCH (08:34)
[2019-12-19] MEDS: MULTIVITAMIN with MINERAL TABLET. PO SCH (08:34)
[2019-12-19 08:42] LABS: BASO # 0.1 x10^3/uL (0.0-0.2); BASO % 1 % (0-3); EOS # 0.3 x10^3/uL (0.0-0.7); EOS % 4 % (0-3); HEMATOCRIT 28.8 % (39.0-53.0); HEMOGLOBIN 9.6 g/dL (13.0-17.5); LYMPH # 0.9 x10^3/uL (1.0-4.8); LYMPH % 12 % (24-48); MEAN CORPUSCULAR HEMOGLOBIN 31 pg (25-35); MEAN CORPUSCULAR HGB CONC 33 g/dL (31-37); MEAN CORPUSCULAR VOLUME 94 fL (79-100); MONO # 0.4 x10^3/uL (0.0-1.1); MONO % 5 % (0-9); NEUT # 5.8 x10^3/uL (1.8-7.7); NEUT % 79 % (31-73); PLATELET COUNT 184 x10^3/uL (140-400); RED BLOOD COUNT 3.06 x10^6/uL (4.30-5.70); RED CELL DISTRIBUTION WIDTH 17.9 % (11.5-14.5); WHITE BLOOD COUNT 7.4 x10^3/uL (4.0-11.0)
[2019-12-19] MEDS: INSULIN GLARGINE SYRINGE. SQ SCH (08:52)
[2019-12-19 08:57] LABS: PROTHROMBIN TIME PATIENT 29.2 SEC (11.7-14.0)
[2019-12-19] MEDS: LOSARTAN POTASSIUM 25 MG TABLET. PO SCH (09:00)
[2019-12-19] MEDS: VERAPAMIL 40 MG TABLET. PO SCH (09:00)
[2019-12-19 09:10] LABS: CALCIUM 8.8 mg/dL (8.5-10.1); CREATININE 10.3 mg/dL (0.7-1.3); GFR 5.1; POTASSIUM 4.6 mmol/L (3.5-5.1)
--- NOTE | 2019-12-19 10:24 | PDOC ---
Infectious Disease Note Vital Sign Vital Signs Vital Signs Date Time Temp Pulse Resp B/P (MAP) Pulse Ox O2 Delivery O2 Flow Rate FiO2 12/19/19 08:00 Room Air 12/19/19 07:00 97.9 71 19 151/73 (99) 95 97.9 Labs Lab Laboratory Tests Test 12/18/19 11:07 12/18/19 16:08 12/19/19 07:01 12/19/19 07:55 Glucose (Fingerstick) 203 mg/dL (70-99) 98 mg/dL (70-99) 150 mg/dL (70-99) White Blood Count 7.4 x10^3/uL (4.0-11.0) Red Blood Count 3.06 x10^6/uL (4.30-5.70) Hemoglobin 9.6 g/dL (13.0-17.5) Hematocrit 28.8 % (39.0-53.0) Mean Corpuscular Volume 94 fL (79-100) Mean Corpuscular Hemoglobin 31 pg (25-35) Mean Corpuscular Hemoglobin Concent 33 g/dL (31-37) Red Cell Distribution Width 17.9 % (11.5-14.5) Platelet Count 184 x10^3/uL (140-400) Neutrophils (%) (Auto) 79 % (31-73) Lymphocytes (%) (Auto) 12 % (24-48) Monocytes (%) (Auto) 5 % (0-9) Eosinophils (%) (Auto) 4 % (0-3) Basophils (%) (Auto) 1 % (0-3) Neutrophils # (Auto) 5.8 x10^3/uL (1.8-7.7) Lymphocytes # (Auto) 0.9 x10^3/uL (1.0-4.8) Monocytes # (Auto) 0.4 x10^3/uL (0.0-1.1) Eosinophils # (Auto) 0.3 x10^3/uL (0.0-0.7) Basophils # (Auto) 0.1 x10^3/uL (0.0-0.2) Prothrombin Time 29.2 SEC (11.7-14.0) Prothromb Time International Ratio 2.8 (0.8-1.1) Sodium Level 127 mmol/L (136-145) Potassium Level 4.6 mmol/L (3.5-5.1) Chloride Level 89 mmol/L (98-107) Carbon Dioxide Level 23 mmol/L (21-32) Anion Gap 15 (6-14) Blood Urea Nitrogen 65 mg/dL (8-26) Creatinine 10.3 mg/dL (0.7-1.3) Estimated GFR (Cockcroft-Gault) 5.1 Glucose Level 147 mg/dL (70-99) Calcium Level 8.8 mg/dL (8.5-10.1) Random Vancomycin Level 11.4 mcg/mL Micro Microbiology 12/16/19 Blood Culture - Preliminary, Resulted NO GROWTH AFTER 2 DAYS Objective Assessment pt seen, consult dictated Plan Plan of Care / AMY PICKETT MD Dec 19, 2019 10:24
[2019-12-19] MEDS ORDERED: VANCOMYCIN PER PHARMACY MC PRN (10:30)
[2019-12-19 10:51] VITALS: BP 166/83
--- NOTE | 2019-12-19 11:32 | NUR ---
SW following. Discussed with RN, pt from home with , room air, ada diet, COVID-19 negative. PT/OT from 09/14 recommending acute rehab, SW awaiting updated notes to determine if this is still the recommendation. Pt does HD MWF at [facility] (ph: [phone], fax: [phone]). Pt currently on IV zosyn. SW will continue to follow. Addendum: 12/19/19 at 1312 by CHERI GUADALUPE SW SW met with pt (no isolation precautions at the time) to discuss acute rehab. Pt is declining acute rehab, stating he does not need therapy (declined to participate in therapy today also). Pt reported he can manage at home, he drives himself to dialysis, does not have any concerns. 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 RN present during conversation. SW will continue to follow.
--- NOTE | 2019-12-19 12:21 | CONS ---
DATE OF CONSULTATION: 12/19/2019 REQUESTING PHYSICIAN: Dr. Hutchinson. REASON FOR CONSULTATION: Cellulitis and blood culture positive. HISTORY OF PRESENT ILLNESS: This is a 64-year-old gentleman with a history of multiple medical problems who came in with fever. The patient had a blister on the heel and has been [facility] and is actually getting better, he says. The patient had a fever and leukocytosis. The patient was put on one dose of daptomycin and Zosyn. The patient is feeling better. Fever is gone. White count has improved from 14,000 to normal, though blood culture 1 out of 4 is positive with Gram-positive cocci in clusters. The patient denies any nausea, vomiting. He does have chronic diarrhea, which is nothing new since his colon surgery, he says, and he has a chronic cough, he says there is nothing new. PAST MEDICAL HISTORY: Positive for hypertension, hyperlipidemia, obesity, COPD, colon surgery, diabetes, venous insufficiency, stasis dermatitis. SOCIAL HISTORY: Negative for smoking, alcohol, or illicit drug use. ALLERGIES: No known drug allergies. CURRENT MEDICATIONS: Reviewed. REVIEW OF SYSTEMS: As per HPI, all other systems reviewed are negative. PHYSICAL EXAMINATION: GENERAL: Alert, oriented gentleman, not in distress. VITAL SIGNS: Stable, afebrile. HEENT: NAD. NECK: Supple, no JVP, no lymphadenopathy. LUNGS: Clear. HEART: S1, S2 regular. ABDOMEN: Benign. EXTREMITIES: Bilateral lower extremity pitting edema present, chronic venous insufficiency and stasis dermatitis present. The wound on to the right calcaneal area is very small superficial now and healthy granulation tissue. NEUROLOGIC: The patient is alert, awake and appropriate. No focal neurologic deficit. LABORATORY DATA: White count is 7.4, hemoglobin 9.6, platelets are normal. BUN and creatinine is 65 and 10.3. COVID-19 is negative. Blood culture as I mentioned. Chest x-ray showed pulmonary vascular congestion. IMPRESSION: 1. Fever. 2. Leukocytosis. 3. Lower extremity cellulitis/acute on chronic stasis dermatitis and venous insufficiency. 4. Right calcaneal wound. 5. Diabetes. 6. Hypertension. 7. End-stage renal disease, on hemodialysis. PLAN: Recommend continue vancomycin and Zosyn. As soon as blood culture is finalized, if it is coag negative staph, the patient can be discharged on p.o. Augmentin. The patient needs to be offloading, supportive care, leg elevation and we will continue to follow. Thank you very much, Dr. Hutchinson, for giving me the opportunity to participate in this patient's care. AMY PICKETT MD DR: RUSSELL/tariq JOB#: [id number] / [id number]
[2019-12-19] MEDS: VANCOMYCIN PER PHARMACY MC PRN (13:17)
--- NOTE | 2019-12-19 13:22 | NUR ---
Pharmacy Vancomycin Dosing Note S: Consulted to monitor and dose vancomycin started 12/16/19. O: ELENITA SHEPHERD is a 64 year old M with Cellulitis, Bacteremia Other Antibiotics: zosyn LABS: Last BUN: 65 Last Creatinine: 10.3 Creatinine Clearance: HD (MWF) Last WBC: 7.4 Last Procalcitonin: 0.84 Tmax (past 24 hours): 98.4 Microbiology: 12/15: Blood cx: gram positive cocci (1/4 bottles) 12/15: Blood cx: NGTD I/O: 1950/1250 Drug Levels: Last Random level: 11.4 on 12/19/19 at 0755 Last dose given 12/16/19 at 1100 Vancomycin Dosing: Dosing Weight: Actual Target Trough: 15-20 A: Based on: level P: 1. Dose vancomycin 1g 1x today then begin 750 mg IV MWF after each HD session 2. Follow up Random level next week if vanc continues 3. Pharmacy will continue to monitor, follow and adjust therapy as needed. Luz Dolan RPH, 12/19/19 [id number]
--- NOTE | 2019-12-19 13:38 | PDOC ---
Renal-Progress Notes Subjective Notes Notes NO CHANGE, WILL NOT ALLOW EXAM OR CONVERSATION History of Present Illness Hx of present illness ON ANTIBIOTICS Vitals Vitals Vital Signs Date Time Temp Pulse Resp B/P (MAP) Pulse Ox O2 Delivery O2 Flow Rate FiO2 12/19/19 10:51 97.8 71 19 166/83 (110) 94 Room Air 97.8 Weight Weight [ ] I.O. Intake and Output Intake and Output 12/19/19 07:00 Intake Total 1950 ml Output Total 1250 ml Balance 700 ml Intake Oral 1950 ml Output Stool Total 600 ml Urine/Stool Mix 650 ml # Voids 2 # Bowel Movements 1 Labs Labs Laboratory Tests Test 12/18/19 16:08 12/19/19 07:01 12/19/19 07:55 Glucose (Fingerstick) 98 mg/dL (70-99) 150 mg/dL (70-99) White Blood Count 7.4 x10^3/uL (4.0-11.0) Red Blood Count 3.06 x10^6/uL (4.30-5.70) Hemoglobin 9.6 g/dL (13.0-17.5) Hematocrit 28.8 % (39.0-53.0) Mean Corpuscular Volume 94 fL (79-100) Mean Corpuscular Hemoglobin 31 pg (25-35) Mean Corpuscular Hemoglobin Concent 33 g/dL (31-37) Red Cell Distribution Width 17.9 % (11.5-14.5) Platelet Count 184 x10^3/uL (140-400) Neutrophils (%) (Auto) 79 % (31-73) Lymphocytes (%) (Auto) 12 % (24-48) Monocytes (%) (Auto) 5 % (0-9) Eosinophils (%) (Auto) 4 % (0-3) Basophils (%) (Auto) 1 % (0-3) Neutrophils # (Auto) 5.8 x10^3/uL (1.8-7.7) Lymphocytes # (Auto) 0.9 x10^3/uL (1.0-4.8) Monocytes # (Auto) 0.4 x10^3/uL (0.0-1.1) Eosinophils # (Auto) 0.3 x10^3/uL (0.0-0.7) Basophils # (Auto) 0.1 x10^3/uL (0.0-0.2) Prothrombin Time 29.2 SEC (11.7-14.0) Prothromb Time International Ratio 2.8 (0.8-1.1) Sodium Level 127 mmol/L (136-145) Potassium Level 4.6 mmol/L (3.5-5.1) Chloride Level 89 mmol/L (98-107) Carbon Dioxide Level 23 mmol/L (21-32) Anion Gap 15 (6-14) Blood Urea Nitrogen 65 mg/dL (8-26) Creatinine 10.3 mg/dL (0.7-1.3) Estimated GFR (Cockcroft-Gault) 5.1 Glucose Level 147 mg/dL (70-99) Calcium Level 8.8 mg/dL (8.5-10.1) Random Vancomycin Level 11.4 mcg/mL Micro Micro Microbiology 12/16/19 Blood Culture - Preliminary, Resulted NO GROWTH AFTER 3 DAYS Review of Systems Constitutional: yes: alert, other (WILL NOT D/W ME) Physical Exam General Appearance: other (WILL NOT ALLOW PE) Assessment Assessment IMP ESRD ANEMIA FEVER LEUCOCYTOSIS R CALCANEAL WOUND LE CELLULITIS PLAN ANTIBIOTICS HD TODAY UF TO DW START GALEN ALEJO MD Dec 19, 2019 13:38
[2019-12-19] MEDS ORDERED: IV NORMAL SALINE 1000ML BAG 1,000 ML IV PRN ×2 (14:09)
[2019-12-19] MEDS ORDERED: diphenhydrAMINE 50 MG/ML VIAL IV PRN ×2 (14:15)
[2019-12-19] MEDS ORDERED: DIALYSIS PATIENT. MC PRN (14:15)
[2019-12-19] MEDS ORDERED: AMOX1TAB58 PO (14:25)
--- NOTE | 2019-12-19 14:27 | DISCH ---
DISCHARGE INSTRUCTIONS Condition on Discharge Condition on Discharge: Stable (Recommend ambulation as much as possible. Wound dressing changes as needed and leg elevation whenever sitting or supine) Activity After Discharge Activity Instructions for Disc: Activity as tolerated Bathing Instructions: Shower-keep dressing dry Lifting Instructions after Dis: No heavy lifting, No pulling or pushing, Do not lift >10 pounds Exercise Instruction after Dis: Progress as tolerated Driving Instructions after Dis: Do not drive today Weight Bearing Status after Di: As tolerated Diet after Discharge Diet after Discharge: Cardiac, Renal Dialysis Diet Texture: Regular Liquid Texture: Thin Liquid Swallowing Supervision: None needed Wound Incision Care Wound/Incision Care: Keep wound/cast CDI, Change dressing, Reinforce dressing PRN Wound Care Equipment: Dressings Checks after Discharge Checks after discharge: Check blood press - daily, Check blood sugar, ac/hs, Check your Temp as needed Contacting the DR. after DC Call your doctor for: Concerns you may have Follow-Up Follow up with: PCP within 1 week of discharge Follow Up With: Nephrology and wound care Treatment/Equipment after DC Adaptive Equipment Issued: None EDER NAJERA MD Dec 19, 2019 14:27
[2019-12-19 15:04] VITALS: BP 138/84
[2019-12-19] MEDS ORDERED: VANCOMYCIN 1 GM in IV NORMAL SALINE 250ML 250 ML IV ONE (16:00)
--- NOTE | 2019-12-19 19:25 | PDOC3 ---
[facility]-Discharge Summary Date of Admission: Date of Admission: Dec 16, 2019 Date of Discharge: Date of Discharge: Dec 19, 2019 Admission Diagnosis: Admitting Diagnosis: Fever, cellulitis, sepsis, severe hypertension, type 2 diabetes with hyperglycemia, malnutrition Discharge Diagnosis: Discharge Diagnosis: Sepsis RLE cellulitis Right heel wound - looks good to me Malignant hypertension Type 2 diabetes with hyperglycemia Severe protein calorie malnutrition ESRD on HD Pulmonary edema H/o DVT and PE s/p IVC filter H/o colectomy Ventral hernia Consults: Consults: Infectious disease Nephrology Hospital Course: Hospital Course: 64-year-old male with a past medical history of end-stage renal disease on hemodialysis M/W/F, who presents to the ER with fever that began this morning. Patient states that he has felt associated weak since this morning as well, and at dialysis he began having a fever of 101. He was sent to the ER prior to receiving his symptoms and his hemodialysis. Patient denies any aggravating or alleviating factors. He does note a chronic cough and shortness of breath, that he attributes to his history of pulmonary embolisms. For this reason he is on chronic warfarin therapy. He states he is followed by wound care on a weekly basis for chronic leg wounds, and was seen by wound care yesterday. Per ED physician, upon removing with the patient's left soft there was purulent drainage from his left foot. Patient was admitted for further care. He was seen by wound care and his wounds were dressed appropriately. He was started on IV antibiotics and he will be discharged with p.o. Augmentin per infectious disease. Patient states that he does follow-up with wound care normally and he he does not need rehab at this time. Patient is able to walk at home without assistance. The rest of his hos pital course was uneventful Physical exam on day of discharge General: Alert, Oriented X3, Cooperative, mild distress Lungs: Clear, Crackles Abdomen: No tenderness, Other (Obese) Extremities: Bilateral pitting edema left knees, left foot with cracked blistered skin and erythema, no evidence of active drainage Disposition: Disposition/Orders: D/C to Home Activity: Activity: Resume previous activity Diet: Diet: Renal Medications: Home Meds Active Scripts Multivits,Ca,Minerals/Iron/Fa (THERA-M TABLET) 1 Each Tablet, 1 TAB PO DAILY for SUPPLEMENT for 30 Days, #30 TAB Prov:FULBRARIES,AMADA W MD 08/30/18 Ascorbic Acid (VITAMIN C) 500 Mg Tablet, 500 MG PO DAILY for SUPPLEMENT for 30 Days, #30 TAB Prov:AMADA BRYANT MD 08/30/18 Ondansetron (ZOFRAN ODT) 4 Mg Tab.rapdis, 4 MG PO BID PRN for NAUSEA/VOMITING, #10 TAB Prov:ALBERTOJASIWNDER Tashi DO 06/26/17 Reported Medications Temazepam (TEMAZEPAM) 15 Mg Capsule, 1 CAP PO QHS for insomia, #30 CAP 1 Refill 12/16/19 Losartan Potassium (LOSARTAN POTASSIUM) 50 Mg Tablet, 25 MG PO DAILY for HYPERTENSION, TAB 12/16/19 Verapamil Hcl (VERAPAMIL HCL) 80 Mg Tablet, 2 TAB PO BID for htn, TAB 12/16/19 Insulin Lispro (HUMALOG) 100 Unit/1 Ml Vial, 60 UNIT SQ DAILYWSUP for rx, VIAL 09/27/19 Insulin Glargine,Hum.rec.anlog (LANTUS SOLOSTAR) 100 Unit/1 Ml Insuln.pen, 35 UNIT SQ BIDAC PRN for rx, #15 ML 3 Refills 09/27/19 Aspirin (ASPIRIN) 81 Mg Tab.chew, 1 TAB PO DAILY for antiplatelet, #30 TAB 3 Refills 08/26/18 Acetaminophen (ACETAMINOPHEN) 500 Mg Tablet, 1 TAB PO BID PRN for PAIN, #60 TAB 1 Refill 08/26/18 Folic Acid/Vit Bcomp,C (Renal Vitamin Tablet) 0.8 Mg Tablet, 0.8 MG PO DAILY 05/22/16 Insulin Lispro (HUMALOG) 100 Unit/1 Ml Insuln.pen, 50 UNIT SQ BIDACBL, SYR 05/22/16 Warfarin Sodium (WARFARIN SODIUM) 5 Mg Tablet, 5 MG PO DAILY for DVT Hx, TAB 12/19/13 Scheduled Ascorbic Acid (Vitamin C), 500 MG PO DAILY Aspirin (Aspirin), 1 TAB PO DAILY, (Reported) Folic Acid/Vit Bcomp,C (Renal Vitamin Tablet), 0.8 MG PO DAILY, (Reported) Insulin Lispro (Humalog), 50 UNIT SQ BIDACBL, (Reported) Insulin Lispro (Humalog), 60 UNIT SQ DAILYWSUP, (Reported) Losartan Potassium (Losartan Potassium), 25 MG PO DAILY, (Reported) Multivits,Ca,Minerals/Iron/Fa (Thera-M Tablet), 1 TAB PO DAILY Temazepam (Temazepam), 1 CAP PO QHS, (Reported) Verapamil Hcl (Verapamil Hcl), 2 TAB PO BID, (Reported) Warfarin Sodium (Warfarin Sodium), 5 MG PO DAILY, (Reported) Scheduled PRN Acetaminophen (Acetaminophen), 1 TAB PO BID PRN for PAIN, (Reported) Insulin Glargine,Hum.rec.anlog (Lantus Solostar), 35 UNIT SQ BIDAC PRN for rx, (Reported) Ondansetron (Zofran Odt), 4 MG PO BID PRN for NAUSEA/VOMITING Total Time: Total Time: Total time spent was 35 minutes in preparing scripts, discharge planning with SWI and RN and preparing this discharge summary Justicifation of Admission Dx: Justifications for Admission: Justification of Admission Dx: Yes Chronic Renal Failure: Hypertension Cellulitis: Cellulitis EDER NAJERA MD Dec 19, 2019 19:25
[2019-12-19] MEDS: WARFARIN 5 MG TABLET. PO SCH (19:45)
--- NOTE | 2019-12-19 20:35 | NUR ---
Pt discharge instructions given to patient and spouse. Both verbalize understanding. Explained prescription for augmentin was sent electronically to per in [place]. 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 Pt wounds were measured and pictured. Pts dressed the wound, states she does it at home anyway and would like to do it now. Pts IV was out when he returned from dialysis. Left arm AV shunt dressing intact. Pt dressed and ready to discharge. Both deny any questions regarding post care. Pt taken out via WC by ALISON.
[2019-12-19] MEDS ORDERED: DARBEPOETIN ALFA 60 MCG/0.3 ML DISP.SYRIN. SQ SCH (21:00)
[2019-12-21] MEDS ORDERED: VANCOMYCIN 750 MG in IV NORMAL SALINE 250ML 250 ML IV SCH (16:00)
[2020-01-13] MEDS ORDERED: BACL10TA PO (15:12)
== END 2019-12-19 20:30 | disposition home or self-care (01) | DRG 871 ==
LOC: ER 07:32 → 6 SOUTH 09:09 → 5 NORTH 12-17 18:31
PROVIDERS: ADMIT Family Medicine; ATTEND Family Medicine
PROC: 5A1D70Z Performance of Urinary Filtration, Intermittent, Less than 6 Hours Per Day (ICD-10-PCS; principal; 2019-12-16)
PROC: 5A1D70Z Performance of Urinary Filtration, Intermittent, Less than 6 Hours Per Day (ICD-10-PCS; 2019-12-19)
DX: A41.9 Sepsis, unspecified organism (principal); E43 Unspecified severe protein-calorie malnutrition; N18.6 End stage renal disease; E87.1 Hypo-osmolality and hyponatremia; I12.0 Hypertensive chronic kidney disease with stage 5 chronic kidney disease or end stage renal disease; J81.1 Chronic pulmonary edema; L03.115 Cellulitis of right lower limb; L03.116 Cellulitis of left lower limb; L03.119 Cellulitis of unspecified part of limb; Z68.41 Body mass index [BMI] 40.0-44.9, adult; D64.9 Anemia, unspecified; E11.22 Type 2 diabetes mellitus with diabetic chronic kidney disease; E11.65 Type 2 diabetes mellitus with hyperglycemia; E66.9 Obesity, unspecified; E78.5 Hyperlipidemia, unspecified; J44.9 Chronic obstructive pulmonary disease, unspecified; K43.9 Ventral hernia without obstruction or gangrene; K52.9 Noninfective gastroenteritis and colitis, unspecified; R65.20 Severe sepsis without septic shock; S90.829A Blister (nonthermal), unspecified foot, initial encounter; Z79.01 Long term (current) use of anticoagulants; Z82.49 Family history of ischemic heart disease and other diseases of the circulatory system; Z83.3 Family history of diabetes mellitus; Z85.038 Personal history of other malignant neoplasm of large intestine; Z86.711 Personal history of pulmonary embolism; Z86.718 Personal history of other venous thrombosis and embolism; Z87.891 Personal history of nicotine dependence; Z90.49 Acquired absence of other specified parts of digestive tract; Z95.828 Presence of other vascular implants and grafts; Z99.2 Dependence on renal dialysis; E66.01 Morbid (severe) obesity due to excess calories; G62.9 Polyneuropathy, unspecified; Z20.828 Contact with and (suspected) exposure to other viral communicable diseases
CPT/HCPCS: 36415; 71045; 80048; 80053; 80202; 82962; 83605; 84145; 84484; 85007; 85025; 85610; 85730; 87040; 87077; 87205; 93005; 96365; 96366; 96368; 99285; J0878; J1815; J2543; J3370; J7050; G0378; J7030; U0003-CS

== ENCOUNTER 2019-12-30 02:36 | Inpatient (IN) | payer MEDICARE, OTHER ==
[~2019-12-30] VITALS: Ht 193 cm; Wt 149.7 kg
[~2019-12-30 02:36] MED LIST changes: +AMOX1TAB58 PO; +LOSA-73 PO; +TEMA15CA PO; +VERA80TA4 PO
--- NOTE | 2019-12-30 03:22 | PHYS DOC ---
Past Medical History Past Medical History: DVT, Hypertension, Renal Disease Additional Past Medical Histor: neuropathy, PE Past Surgical History: Other Additional Past Surgical Histo: colon resection Smoking Status: Former Smoker Alcohol Use: None Drug Use: None General Adult EDM: Chief Complaint: RECTAL BLEED HPI: HPI: The history was obtained from the patient. Patient is a 64-year-old male with PMH multiple coronaries including end-stage renal dialysis, lower extremity DVTs with IVC filter placement who presents with a chief complaint of dark stools. Patient states he has had black tarry stools over the past week. He states today his symptoms seem to worsen. He states over the past several hours he has not been able to make it to the toilet. He states whenever he stands up or tries to ambulate loose stool that is black-colored is voided. He does take Coumadin daily for history of blood clots. States he has not missed any doses. Notes that he does receive dialysis on Mondays, Wednesdays, and Fridays. He states he is never had blood in his stool before. Notes he had a colonoscopy years ago but is unsure of the results. Does note some intermittent brief abdominal discomfort with bowel movements tonight. States the pain is sharp. States it lasted few minutes and resolved after bowel movement. Denies chest pain or shortness of breath. Denies objective fevers. No other complaints. Review of Systems: Review of Systems: Constitutional: Denies fever or chills. [] Eyes: Denies change in visual acuity. [] HENT: Denies nasal congestion or sore throat. [] Respiratory: Denies cough or shortness of breath. [] Cardiovascular: Denies chest pain or edema. [] GI: Positive for loose stool and melena and abdominal pain : Denies dysuria. [] Musculoskeletal: Denies back pain or joint pain. [] Integument: Denies rash. [] Neurologic: Denies headache, focal weakness or sensory changes. [] Endocrine: Denies polyuria or polydipsia. [] Lymphatic: Denies swollen glands. [] Psychiatric: Denies depression or anxiety. [] Heart Score: Risk Factors: Risk Factors: DM, Current or recent (<one month) smoker, HTN, HLP, family history of CAD, obesity. Risk Scores: Score 0 - 3: 2.5% MACE over next 6 weeks - Discharge Home Score 4 - 6: 20.3% MACE over next 6 weeks - Admit for Clinical Observation Score 7 - 10: 72.7% MACE over next 6 weeks - Early Invasive Strategies Allergies: Allergies: Allergies Coded Allergies Type Severity Reaction Last Updated Verified No Known Drug Allergies 09/27/19 No Physical Exam: PE: Constitutional: Well developed, well nourished, no acute distress, non-toxic appearance. [] HENT: Normocephalic, atraumatic, bilateral external ears normal, oropharynx moist, no oral exudates, nose normal. [] Eyes: PERRLA, EOMI, conjunctiva normal, no discharge. [] Neck: Normal range of motion, no tenderness, supple, no stridor. [] Cardiovascular:Heart rate regular rhythm, no murmur [] Lungs & Thorax: Bilateral breath sounds clear to auscultation [] Abdomen: Morbid obesity. Ventral wall hernia approximately 10 cm x 10 cm palpated. No overlying skin changes. Minimal tenderness palpation in all quadrants. Inguinal candidal skin changes noted. Rectal exam shows yellow loose stool. Grossly negative for blood. Skin: Warm, dry, no erythema, no rash. [] Back: No tenderness, no CVA tenderness. [] Extremities: No tenderness, no cyanosis, no clubbing, ROM intact, no edema. [] Neurologic: Alert and oriented X 3, normal motor function, normal sensory function, no focal deficits noted. [] Psychologic: Affect normal, judgement normal, mood normal. [] Current Patient Data: Labs: Laboratory Tests Test 12/30/19 03:20 White Blood Count 12.9 x10^3/uL Red Blood Count 3.14 x10^6/uL Hemoglobin 10.2 g/dL Hematocrit 30.4 % Mean Corpuscular Volume 97 fL Mean Corpuscular Hemoglobin 32 pg Mean Corpuscular Hemoglobin Concent 34 g/dL Red Cell Distribution Width 19.1 % Platelet Count 206 x10^3/uL Neutrophils (%) (Auto) 82 % Lymphocytes (%) (Auto) 10 % Monocytes (%) (Auto) 5 % Eosinophils (%) (Auto) 3 % Basophils (%) (Auto) 1 % Neutrophils # (Auto) 10.6 x10^3/uL Lymphocytes # (Auto) 1.3 x10^3/uL Monocytes # (Auto) 0.6 x10^3/uL Eosinophils # (Auto) 0.3 x10^3/uL Basophils # (Auto) 0.1 x10^3/uL Prothrombin Time 24.6 SEC Prothromb Time International Ratio 2.2 Stool Occult Blood Positive Sodium Level 134 mmol/L Potassium Level 3.3 mmol/L Chloride Level 95 mmol/L Carbon Dioxide Level 31 mmol/L Anion Gap 8 Blood Urea Nitrogen 30 mg/dL Creatinine 8.1 mg/dL Estimated GFR (Cockcroft-Gault) 6.7 Glucose Level 99 mg/dL Calcium Level 9.4 mg/dL Total Bilirubin 0.4 mg/dL Direct Bilirubin 0.2 mg/dL Aspartate Amino Transf (AST/SGOT) 26 U/L Alanine Aminotransferase (ALT/SGPT) 46 U/L Alkaline Phosphatase 101 U/L Total Protein 8.6 g/dL Albumin 2.7 g/dL Vital Signs: Vital Signs Date Time Temp Pulse Resp B/P (MAP) Pulse Ox O2 Delivery O2 Flow Rate FiO2 12/30/19 05:30 97.4 78 20 176/74 (108) 99 Room Air 97.4 EKG: EKG: [] Radiology/Procedures: Radiology/Procedures: [] Course & Med Decision Making: Course & Med Decision Making Pertinent Labs and Imaging studies reviewed. (See chart for details) [] Patient is a 64-year-old male who presents with chief complaint of black tarry stools over the past week. He states he has had progressively loose stool. Initial vital signs unremarkable. Exam noted above. Hemoglobin is actually improved from previous. Patient does take Coumadin however and has an INR 2.2. Patient stool is guaiac positive. Labs are consistent with chronic kidney disease. I do feel advanced CAT scan imaging will yield further diagnostic information. However I do feel the patient requires observation given he may be having an upper GI bleed in the setting of blood thinner usage. Given he is not unstable Coumadin reversal will be deferred. Agreeable to hospitalization. Jonna Disclaimer: Jonna Disclaimer: This electronic medical record was generated, in whole or in part, using a voice recognition dictation system. Departure Departure Impression: Primary Impression: Bloody diarrhea Additional Impressions: Anticoagulated on Coumadin ESRD (end stage renal disease) Disposition: ADMITTED INPATIENT Condition: STABLE Referrals: HIGINIO WISE MD (PCP) Justicifation of Admission Dx: Justifications for Admission: Justification of Admission Dx: Yes Chronic Renal Failure: Hypertension Cellulitis: Cellulitis Comments: blood in stool on Warfarin JESSE MADRIGAL DO Dec 30, 2019 03:22
[2019-12-30 03:29] LABS: BASO # 0.1 x10^3/uL (0.0-0.2); BASO % 1 % (0-3); EOS # 0.3 x10^3/uL (0.0-0.7); EOS % 3 % (0-3); HEMATOCRIT 30.4 % (39.0-53.0); HEMOGLOBIN 10.2 g/dL (13.0-17.5); LYMPH # 1.3 x10^3/uL (1.0-4.8); LYMPH % 10 % (24-48); MEAN CORPUSCULAR HEMOGLOBIN 32 pg (25-35); MEAN CORPUSCULAR HGB CONC 34 g/dL (31-37); MEAN CORPUSCULAR VOLUME 97 fL (79-100); MONO # 0.6 x10^3/uL (0.0-1.1); MONO % 5 % (0-9); NEUT # 10.6 x10^3/uL (1.8-7.7); NEUT % 82 % (31-73); PLATELET COUNT 206 x10^3/uL (140-400); RED BLOOD COUNT 3.14 x10^6/uL (4.30-5.70); RED CELL DISTRIBUTION WIDTH 19.1 % (11.5-14.5); WHITE BLOOD COUNT 12.9 x10^3/uL (4.0-11.0)
[2019-12-30 03:34] LABS: FECAL OB PT POSITIVE (NEG)
[2019-12-30 03:37] LABS: CALCIUM 9.4 mg/dL (8.5-10.1); CREATININE 8.1 mg/dL (0.7-1.3); GFR 6.7; POTASSIUM 3.3 mmol/L (3.5-5.1)
[2019-12-30 03:38] LABS: PROTHROMBIN TIME PATIENT 24.6 SEC (11.7-14.0)
[2019-12-30 04:00] LABS: ALBUMIN 2.7 g/dL (3.4-5.0); DIRECT BILIRUBIN 0.2 mg/dL (0.0-0.2); TOTAL BILIRUBIN 0.4 mg/dL (0.2-1.0); TOTAL PROTEIN 8.6 g/dL (6.4-8.2)
[2019-12-30] MEDS ORDERED: ONDANSETRON PF 4 MG/2 ML VIAL. IV PRN (05:30)
--- NOTE | 2019-12-30 08:17 | PDOC1 ---
History and Physical Date of Admission Date of Admission DATE: 12/30/19 TIME: 08:12 Identification/Chief Complaint Chief Complaint Blood in stool Source Source: Patient History of Present Illness History of Present Illness Mr Denny is a 64 yo M w/ PMHx ESRD HD M/W/F, Right heel wound, HTN, DM2, DVT and PE s/p IVC filter on warfarin, prior colectomy, ventral hernia who presents to the ER with complaint of dark stools. Patient states he has had black tarry stools over the past week. He states today his symptoms seem to worsen. He states over the past several hours he has not been able to make it to the toilet. He states whenever he stands up or tries to ambulate loose stool that is black-colored, though he did take pepto bismol. Does note some intermittent brief abdominal discomfort with bowel movements tonight. States the pain is sharp. States it lasted few minutes and resolved after bowel movement. Denies chest pain or shortness of breath. Denies objective fevers. No other complaint s. He and his do note that he has been on the prescription for Augmentin and was just transitioned to doxycycline per wound care for his left lower extremity wounds and he would like to be seen by wound care again. He is asking not to be on a diabetic or renal diet wants to eat regular diet uses he "can handle two [employer] cheeseburgers and fries just fine." INR 2.2, Hemoccult positive. Hb 10.2, WBC 12.9. No imaging or EKG performed in ED. Called for admission for further care. Past Medical History Cardiovascular: HTN, Hyperlipidemia Pulmonary: COPD, Other GI: Other Renal/: Chronic renal insuff Endocrine: Diabetes Past Surgical History Past Surgical History: Colectomy, Colon Resection, Other Family History Family History: Cancer, Diabetes, Hypertension Social History Smoke: No ALCOHOL: none Drugs: None Current Problem List Problem List Problems Medical Problems: (1) Anticoagulated on Coumadin Status: Acute (2) Bloody diarrhea Status: Acute (3) ESRD (end stage renal disease) Status: Acute Current Medications Current Medications Current Medications Ondansetron HCl (Zofran) 4 mg PRN Q8HRS PRN IV NAUSEA/VOMITING; Start 12/30/19 at 05:30; Stop 12/31/19 at 05:29 Active Scripts Active Augmentin 500-125 Tablet (Amoxicillin/Potassium Clav) 1 Each Tablet 1 Tab PO BID 5 Days Thera-M Tablet (Multivits,Ca,Minerals/Iron/Fa) 1 Each Tablet 1 Tab PO DAILY 30 D ays Vitamin C (Ascorbic Acid) 500 Mg Tablet 500 Mg PO DAILY 30 Days Zofran Odt (Ondansetron) 4 Mg Tab.rapdis 4 Mg PO BID PRN Reported Temazepam 15 Mg Capsule 1 Cap PO QHS Losartan Potassium 50 Mg Tablet 25 Mg PO DAILY Verapamil Hcl 80 Mg Tablet 2 Tab PO BID Humalog (Insulin Lispro) 100 Unit/1 Ml Vial 60 Unit SQ DAILYWSUP Lantus Solostar (Insulin Glargine,Hum.rec.anlog) 100 Unit/1 Ml Insuln.pen 35 Unit SQ BIDAC PRN Aspirin 81 Mg Tab.chew 1 Tab PO DAILY Acetaminophen 500 Mg Tablet 1 Tab PO BID PRN Renal Vitamin Tablet (Folic Acid/Vit Bcomp,C) 0.8 Mg Tablet 0.8 Mg PO DAILY Humalog (Insulin Lispro) 100 Unit/1 Ml Insuln.pen 50 Unit SQ BIDACBL Warfarin Sodium 5 Mg Tablet 5 Mg PO DAILY Allergies Allergies: Coded Allergies: No Known Drug Allergies (Unverified , 09/27/19) ROS General: YES: Fatigue, Malaise; No: Chills, Night Sweats, Appetite, Other PSYCHOLOGICAL ROS: No: Anxiety, Behavioral Disorder, Concentration difficultie, Decreased libido, Depression, Disorientation, Hallucinations, Hostility, Irritablity, Memory difficulties, Mood Swings, Obsessive thoughts, Physical abuse, Sexual abuse, Sleep disturbances, Suicidal ideation, Other Eyes: No Blurry vision, No Decreased vision, No Double vision, No Dry eyes, No Excessive tearing, No Eye Pain, No Itchy Eyes, No Loss of vision, No Photophobia, No Scotomata, No Uses contacts, No Uses glasses, No Other HEENT: No: Heacaches, Visual Changes, Hearing change, Nasal congestion, Nasal discharge, Oral lesions, Sinus pain, Sore Throat, Epistaxis, Sneezing, Snoring, Tinnitus, Vertigo, Vocal changes, Other ALLERGY AND IMMUNOLOGY: No: Hives, Insect Bite Sensitivity, Itchy/Watery Eyes, Nasal Congestion, Post Nasal Drip, Seasonal Allergies, Other Hematological and Lymphatic: YES: Blood Clots; No: Bleeding Problems, Blood Transfusions, Brusing, Night Sweats, Pallor, Swollen Lymph Nodes, Other ENDOCRINE: No: Breast Changes, Galactorrhea, Hair Pattern Changes, Hot Flashes, Malaise/lethargy, Mood Swings, Palpitations, Polydipsia/polyuria, Skin Changes, Temperature Intolerance, Unexpected Weight Changes, Other Breast: No New/Changing Breast Lumps, No Nipple changes, No Nipple discharge, No Other Respiratory: No: Cough, Hemoptysis, Orthopnea, Pleuritic Pain, Shortness of breath, SOB with excertion, Sputum Changes, Stridor, Tachypnea, Wheezing, Other Cardiovascular: No Chest Pain, No Palpitations, No Orthopnea, No Paroxysmal Noc. Dyspnea, No Edema, No Lt Headedness, No Other Gastrointestinal: Yes Nausea, Yes Diarrhea; No Vomiting, No Abdominal Pain, No Constipation, No Melena, No Hematochezia, No Other Genitourinary: No Dysuria, No Frequency, No Incontinence, No Hematuria, No Retention, No Discharge, No Urgency, No Pain, No Flank Pain, No Other, No , No , No , No , No , No , No Musculoskeletal: No Gait Disturbance, No Joint Pain, No Joint Stiffness, No Joint Swelling, No Muscle Pain, No Muscular Weakness, No Pain In:, No Swelling In:, No Other Neurological: No Behavorial Changes, No Bowel/Bladder ControlChng, No Confusion, No Dizziness, No Gait Disturbance, No Headaches, No Impaired Coord/balance, No Memory Loss, No Numbness/Tingling, No Seizures, No Speech Problems, No Tremors, No Visual Changes, No Weakness, No Other Skin: Yes Rash, Yes Skin Lesion Changes; No Dry Skin, No Eczema, No Hair Changes, No Lumps, No Mole Changes, No Mottling, No Nail Changes, No Pruritus, No Other, No Acne Physical Exam General: Alert, Oriented X3, Cooperative, No acute distress HEENT: Atraumatic, PERRLA, EOMI, Mucous membr. moist/pink Lungs: Clear to auscultation, Normal air movement Heart: S1S2, RRR, no thrills, no rubs, no gallops, no murmurs Abdomen: Normal bowel sounds, Soft, No tenderness, No hepatosplenomegaly, No masses Extremities: No clubbing, No cyanosis, Normal pulses, No tenderness/swelling Skin: Other (Bilateral pitting edema left knees, left foot with cracked blistered skin and erythema, slight drainage) Neuro: Normal gait, Normal speech, Strength at 5/5 X4 ext, Normal tone, Sensation intact, Cranial nerves 3-12 NL, Reflexes 2+ Psych/Mental Status: Mental status NL, Mood NL Vitals Vitals Vital Signs Date Time Temp Pulse Resp B/P (MAP) Pulse Ox O2 Delivery O2 Flow Rate FiO2 12/30/19 05:30 97.4 78 20 176/74 (108) 99 Room Air 97.4 Labs Labs Laboratory Tests Test 12/30/19 03:20 White Blood Count 12.9 x10^3/uL (4.0-11.0) Red Blood Count 3.14 x10^6/uL (4.30-5.70) Hemoglobin 10.2 g/dL (13.0-17.5) Hematocrit 30.4 % (39.0-53.0) Mean Corpuscular Volume 97 fL (79-100) Mean Corpuscular Hemoglobin 32 pg (25-35) Mean Corpuscular Hemoglobin Concent 34 g/dL (31-37) Red Cell Distribution Width 19.1 % (11.5-14.5) Platelet Count 206 x10^3/uL (140-400) Neutrophils (%) (Auto) 82 % (31-73) Lymphocytes (%) (Auto) 10 % (24-48) Monocytes (%) (Auto) 5 % (0-9) Eosinophils (%) (Auto) 3 % (0-3) Basophils (%) (Auto) 1 % (0-3) Neutrophils # (Auto) 10.6 x10^3/uL (1.8-7.7) Lymphocytes # (Auto) 1.3 x10^3/uL (1.0-4.8) Monocytes # (Auto) 0.6 x10^3/uL (0.0-1.1) Eosinophils # (Auto) 0.3 x10^3/uL (0.0-0.7) Basophils # (Auto) 0.1 x10^3/uL (0.0-0.2) Prothrombin Time 24.6 SEC (11.7-14.0) Prothromb Time International Ratio 2.2 (0.8-1.1) Stool Occult Blood Positive (NEG) Sodium Level 134 mmol/L (136-145) Potassium Level 3.3 mmol/L (3.5-5.1) Chloride Level 95 mmol/L (98-107) Carbon Dioxide Level 31 mmol/L (21-32) Anion Gap 8 (6-14) Blood Urea Nitrogen 30 mg/dL (8-26) Creatinine 8.1 mg/dL (0.7-1.3) Estimated GFR (Cockcroft-Gault) 6.7 Glucose Level 99 mg/dL (70-99) Calcium Level 9.4 mg/dL (8.5-10.1) Total Bilirubin 0.4 mg/dL (0.2-1.0) Direct Bilirubin 0.2 mg/dL (0.0-0.2) Aspartate Amino Transf (AST/SGOT) 26 U/L (15-37) Alanine Aminotransferase (ALT/SGPT) 46 U/L (16-63) Alkaline Phosphatase 101 U/L (46-116) Total Protein 8.6 g/dL (6.4-8.2) Albumin 2.7 g/dL (3.4-5.0) Laboratory Tests Test 12/30/19 03:20 White Blood Count 12.9 x10^3/uL (4.0-11.0) Red Blood Count 3.14 x10^6/uL (4.30-5.70) Hemoglobin 10.2 g/dL (13.0-17.5) Hematocrit 30.4 % (39.0-53.0) Mean Corpuscular Volume 97 fL (79-100) Mean Corpuscular Hemoglobin 32 pg (25-35) Mean Corpuscular Hemoglobin Concent 34 g/dL (31-37) Red Cell Distribution Width 19.1 % (11.5-14.5) Platelet Count 206 x10^3/uL (140-400) Neutrophils (%) (Auto) 82 % (31-73) Lymphocytes (%) (Auto) 10 % (24-48) Monocytes (%) (Auto) 5 % (0-9) Eosinophils (%) (Auto) 3 % (0-3) Basophils (%) (Auto) 1 % (0-3) Neutrophils # (Auto) 10.6 x10^3/uL (1.8-7.7) Lymphocytes # (Auto) 1.3 x10^3/uL (1.0-4.8) Monocytes # (Auto) 0.6 x10^3/uL (0.0-1.1) Eosinophils # (Auto) 0.3 x10^3/uL (0.0-0.7) Basophils # (Auto) 0.1 x10^3/uL (0.0-0.2) Prothrombin Time 24.6 SEC (11.7-14.0) Prothromb Time International Ratio 2.2 (0.8-1.1) Stool Occult Blood Positive (NEG) Sodium Level 134 mmol/L (136-145) Potassium Level 3.3 mmol/L (3.5-5.1) Chloride Level 95 mmol/L (98-107) Carbon Dioxide Level 31 mmol/L (21-32) Anion Gap 8 (6-14) Blood Urea Nitrogen 30 mg/dL (8-26) Creatinine 8.1 mg/dL (0.7-1.3) Estimated GFR (Cockcroft-Gault) 6.7 Glucose Level 99 mg/dL (70-99) Calcium Level 9.4 mg/dL (8.5-10.1) Total Bilirubin 0.4 mg/dL (0.2-1.0) Direct Bilirubin 0.2 mg/dL (0.0-0.2) Aspartate Amino Transf (AST/SGOT) 26 U/L (15-37) Alanine Aminotransferase (ALT/SGPT) 46 U/L (16-63) Alkaline Phosphatase 101 U/L (46-116) Total Protein 8.6 g/dL (6.4-8.2) Albumin 2.7 g/dL (3.4-5.0) VTE Prophylaxis Ordered VTE Prophylaxis Devices: Yes VTE Pharmacological Prophylaxi: Yes Assessment/Plan Assessment/Plan A/P: Blood in stool - likely 2/2 diverticulosis DIarrhea - given exposure to antibiotics, will check c. difficile, consult GI Anemia - likely of GI blood loss and chronic anemia of renal disease Right heel wound - looks good to me LLE wounds - on doxycycline, will have wound care to see Malignant hypertension Type 2 diabetes with hyperglycemia - sliding scale and basal Severe protein calorie malnutrition ESRD on HD - HD today Pulmonary edema H/o DVT and PE s/p IVC filter H/o colectomy Ventral hernia FEN - Renal ADA diet PPX - warfarin Full code Dispo - inpatient Justifications for Admission Other Justification ALEX ARENAS MD Dec 30, 2019 08:17
--- NOTE | 2019-12-30 09:25 | PDOC2 ---
CONSULT Date of Consult Date of Consult DATE: 12/30/19 TIME: 09:24 Reason for Consult Reason for Consult: ESRD History of Present Illness Reason for Visit: Mr Denny is a 64 yo M w/ PMHx ESRD HD M/W/F, Right heel wound, HTN, DM2, DVT and PE s/p IVC filter on warfarin, prior colectomy, ventral hernia who presents to the ER with complaint of dark stools. Patient states he has had black tarry stools over the past week. He states today his symptoms seem to worsen. He states over the past several hours he has not been able to make it to the toilet. He states whenever he stands up or tries to ambulate loose stool that is black-colored, though he did take pepto bismol. Does note some intermittent brief abdominal discomfort with bowel movements tonight. States the pain is sharp. States it lasted few minutes and resolved after bowel movement. Denies chest pain or shortness of breath. Denies objective fevers. No other complaints. He and his do note that he has been on the prescription for Augmentin and was just transitioned to doxycycline per wound care for his left lower extremity wounds and he would like to be seen by wound care again. He is asking not to be on a diabetic or renal diet wants to eat regular diet uses he "can handle two [employer] cheeseburgers and fries just fine." INR 2.2, Hemoccult positive. Hb 10.2, WBC 12.9. No imaging or EKG performed in ED. Past Medical History Cardiovascular: HTN, Hyperlipidemia Pulmonary: COPD, Other GI: Other Renal/: Chronic renal insuff Endocrine: Diabetes Past Surgical History Past Surgical History: Colectomy, Colon Resection, Other Family History Family History: Cancer, Diabetes, Hypertension Social History ALCOHOL: none Drugs: None Lives: with Family Current Problem List Problem List Problems Medical Problems: (1) Anticoagulated on Coumadin Status: Acute (2) Bloody diarrhea Status: Acute (3) ESRD (end stage renal disease) Status: Acute Current Medications Current Medications Current Medications Ondansetron HCl (Zofran) 4 mg PRN Q8HRS PRN IV NAUSEA/VOMITING; Start 12/30/19 at 05:30; Stop 12/31/19 at 05:29 Active Scripts Active Augmentin 500-125 Tablet (Amoxicillin/Potassium Clav) 1 Each Tablet 1 Tab PO BID 5 Days Thera-M Tablet (Multivits,Ca,Minerals/Iron/Fa) 1 Each Tablet 1 Tab PO DAILY 30 Days Vitamin C (Ascorbic Acid) 500 Mg Tablet 500 Mg PO DAILY 30 Days Zofran Odt (Ondansetron) 4 Mg Tab.rapdis 4 Mg PO BID PRN Reported Temazepam 15 Mg Capsule 1 Cap PO QHS Losartan Potassium 50 Mg Tablet 25 Mg PO DAILY Verapamil Hcl 80 Mg Tablet 2 Tab PO BID Humalog (Insulin Lispro) 100 Unit/1 Ml Vial 60 Unit SQ DAILYWSUP Lantus Solostar (Insulin Glargine,Hum.rec.anlog) 100 Unit/1 Ml Insuln.pen 35 Unit SQ BIDAC PRN Aspirin 81 Mg Tab.chew 1 Tab PO DAILY Acetaminophen 500 Mg Tablet 1 Tab PO BID PRN Renal Vitamin Tablet (Folic Acid/Vit Bcomp,C) 0.8 Mg Tablet 0.8 Mg PO DAILY Humalog (Insulin Lispro) 100 Unit/1 Ml Insuln.pen 50 Unit SQ BIDACBL Warfarin Sodium 5 Mg Tablet 5 Mg PO DAILY Allergies Allergies: Coded Allergies: No Known Drug Allergies (Unverified , 09/27/19) ROS Review of System As per HPI, rest of the ROS is negative Physical Exam Physical Exam General: No acute distress HEENT: Mucous membr. moist/pink Neck Thick, supple Lungs: (Bibasilar crackles, Non labored Heart: S1S2, RRR, Abdomen: Normal bowel sounds, Soft, No tenderness, Obese, Extremities: No clubbing, No cyanosis,No edema Skin: Right heel ulcer, bilateral breen ulcers and venous stasis dermatitis Neuro: Grossly Normal No [place] Psych/Mental Status: Mental status NL, Mood NL Vital Signs Vital Signs Date Time Temp Pulse Resp B/P (MAP) Pulse Ox O2 Delivery O2 Flow Rate FiO2 12/30/19 07:54 78 20 189/84 (119) 96 Room Air 12/30/19 05:30 97.4 97.4 Assessment & Plan ESRD - On HD MWF ( Dr. Ortiz) seen on HD Dialysis , tolerating well, mara Leone Blood in stool - likely 2/2 diverticulosis Labs Labs Laboratory Tests Test 12/30/19 03:20 12/30/19 08:53 White Blood Count 12.9 x10^3/uL (4.0-11.0) Red Blood Count 3.14 x10^6/uL (4.30-5.70) Hemoglobin 10.2 g/dL (13.0-17.5) Hematocrit 30.4 % (39.0-53.0) Mean Corpuscular Volume 97 fL (79-100) Mean Corpuscular Hemoglobin 32 pg (25-35) Mean Corpuscular Hemoglobin Concent 34 g/dL (31-37) Red Cell Distribution Width 19.1 % (11.5-14.5) Platelet Count 206 x10^3/uL (140-400) Neutrophils (%) (Auto) 82 % (31-73) Lymphocytes (%) (Auto) 10 % (24-48) Monocytes (%) (Auto) 5 % (0-9) Eosinophils (%) (Auto) 3 % (0-3) Basophils (%) (Auto) 1 % (0-3) Neutrophils # (Auto) 10.6 x10^3/uL (1.8-7.7) Lymphocytes # (Auto) 1.3 x10^3/uL (1.0-4.8) Monocytes # (Auto) 0.6 x10^3/uL (0.0-1.1) Eosinophils # (Auto) 0.3 x10^3/uL (0.0-0.7) Basophils # (Auto) 0.1 x10^3/uL (0.0-0.2) Prothrombin Time 24.6 SEC (11.7-14.0) Prothromb Time International Ratio 2.2 (0.8-1.1) Stool Occult Blood Positive (NEG) Sodium Level 134 mmol/L (136-145) Potassium Level 3.3 mmol/L (3.5-5.1) Chloride Level 95 mmol/L (98-107) Carbon Dioxide Level 31 mmol/L (21-32) Anion Gap 8 (6-14) Blood Urea Nitrogen 30 mg/dL (8-26) Creatinine 8.1 mg/dL (0.7-1.3) Estimated GFR (Cockcroft-Gault) 6.7 Glucose Level 99 mg/dL (70-99) Calcium Level 9.4 mg/dL (8.5-10.1) Total Bilirubin 0.4 mg/dL (0.2-1.0) Direct Bilirubin 0.2 mg/dL (0.0-0.2) Aspartate Amino Transf (AST/SGOT) 26 U/L (15-37) Alanine Aminotransferase (ALT/SGPT) 46 U/L (16-63) Alkaline Phosphatase 101 U/L (46-116) Total Protein 8.6 g/dL (6.4-8.2) Albumin 2.7 g/dL (3.4-5.0) Glucose (Fingerstick) 90 mg/dL (70-99) Laboratory Tests Test 12/30/19 03:20 12/30/19 08:53 White Blood Count 12.9 x10^3/uL (4.0-11.0) Red Blood Count 3.14 x10^6/uL (4.30-5.70) Hemoglobin 10.2 g/dL (13.0-17.5) Hematocrit 30.4 % (39.0-53.0) Mean Corpuscular Volume 97 fL (79-100) Mean Corpuscular Hemoglobin 32 pg (25-35) Mean Corpuscular Hemoglobin Concent 34 g/dL (31-37) Red Cell Distribution Width 19.1 % (11.5-14.5) Platelet Count 206 x10^3/uL (140-400) Neutrophils (%) (Auto) 82 % (31-73) Lymphocytes (%) (Auto) 10 % (24-48) Monocytes (%) (Auto) 5 % (0-9) Eosinophils (%) (Auto) 3 % (0-3) Basophils (%) (Auto) 1 % (0-3) Neutrophils # (Auto) 10.6 x10^3/uL (1.8-7.7) Lymphocytes # (Auto) 1.3 x10^3/uL (1.0-4.8) Monocytes # (Auto) 0.6 x10^3/uL (0.0-1.1) Eosinophils # (Auto) 0.3 x10^3/uL (0.0-0.7) Basophils # (Auto) 0.1 x10^3/uL (0.0-0.2) Prothrombin Time 24.6 SEC (11.7-14.0) Prothromb Time International Ratio 2.2 (0.8-1.1) Stool Occult Blood Positive (NEG) Sodium Level 134 mmol/L (136-145) Potassium Level 3.3 mmol/L (3.5-5.1) Chloride Level 95 mmol/L (98-107) Carbon Dioxide Level 31 mmol/L (21-32) Anion Gap 8 (6-14) Blood Urea Nitrogen 30 mg/dL (8-26) Creatinine 8.1 mg/dL (0.7-1.3) Estimated GFR (Cockcroft-Gault) 6.7 Glucose Level 99 mg/dL (70-99) Calcium Level 9.4 mg/dL (8.5-10.1) Total Bilirubin 0.4 mg/dL (0.2-1.0) Direct Bilirubin 0.2 mg/dL (0.0-0.2) Aspartate Amino Transf (AST/SGOT) 26 U/L (15-37) Alanine Aminotransferase (ALT/SGPT) 46 U/L (16-63) Alkaline Phosphatase 101 U/L (46-116) Total Protein 8.6 g/dL (6.4-8.2) Albumin 2.7 g/dL (3.4-5.0) Glucose (Fingerstick) 90 mg/dL (70-99) Review All relevant outside records, renal labs, imaging studies, telemetry/EKG's were reviewed. ANABEL GARSIA MD Dec 30, 2019 09:25
[2019-12-30 09:39] VITALS: BP 182/64
[2019-12-30] MEDS ORDERED: DEXTROSE 50% 25 GM / 50ML DISP.SYRIN. IV PRN (10:00)
[2019-12-30] MEDS: DOXYCYCLINE HYCLATE 100 MG TABLET PO SCH ×2 (10:00→21:09)
[2019-12-30] MEDS ORDERED: ACETAMINOPHEN 500 MG TABLET PO PRN (10:00)
[2019-12-30] MEDS ORDERED: ONDANSETRON ODT 4 MG TAB.RAPDIS. PO PRN (10:00)
--- NOTE | 2019-12-30 10:03 | PDOC2 ---
GI CONSULT Date of Service: DATE: 12/30/19 TIME: 10:03 Reason For Consult: GI bleed on Coumadin HPI: HPI: 64 y/o male who we've seen in the past. Had some diarrhea at home - very urgent, couldn't make it to the restroom. Took Pepto a couple times and stools looked dark/black. No stools here. Currently really hungry, says it's important to eat before he goes to dialysis or he'll get sick. D/w nurse. Recently given antibiotics for LE infection. Denies reflux, dysphagia, n/v, constipation, hematochezia, and weight loss. Might have had a little lower abdominal discomfort prior to stooling. Per past encounter in 08/2018, EGD and colonoscopy 05/2014 (by Dr. Thomas): normal esophagus, normal stomach, normal duodenum, ascending colon mass. Discharge summary indicates adenocarcinoma. Underwent expl lap w/ extended right hemicolectomy and primary anastomosis w/ Dr. Vitale. He says he did not follow- up w/ oncology and has not had a colonoscopy since, though this was recommended when we saw him at that time. No GB, liver, pancreas, or PUD history. On past CT: diastases of anterior rectus musculature, complex ventral hernia - superior left-sided hernia defect contains loop of large bowel w/ dilation of large bowel proximal to this, s/p right colectomy, inferior second ventral hernia containing more distal loop of large bowel and associated loop of small bowel. H/o DOUGLAS in 2014 and 2018 - says he took iron for awhile and then stopped "because I didn't need it." B12 okay in 2018. H/o PE and DVT on Warfarin w/ ICV filter. ESRD on HD. Also takes ASA 81mg QD. No NSAIDs. PMH: PMH: HTN, HLD, DVT, PE, ESRD on HD, cellulitis, UTI, IDDM, peripheral neuropathy, colon cancer IVC filter, right hemicolectomy FH: Family History: No pertinent hx Social History: ALCOHOL: none Drugs: None ROS: GEN: Denies fevers, chills, sweats HEENT: Denies blurred vision, sore throat CV: Denies chest pain RESP: Denies shortness of air, cough GI: Per HPI : Denies hematuria, dysuria ENDO: Denies weight changes NEURO: Denies confusion, dizziness MSK: Denies weakness, joint pain/swelling SKIN: Denies jaundice, pruritus Vitals: Vitals: Vital Signs Date Time Temp Pulse Resp B/P (MAP) Pulse Ox O2 Delivery O2 Flow Rate FiO2 12/30/19 09:39 98.1 79 18 182/64 (103) 98 98.1 12/30/19 07:54 Room Air Labs: Labs: Laboratory Tests Test 12/30/19 03:20 12/30/19 08:53 White Blood Count 12.9 x10^3/uL (4.0-11.0) Red Blood Count 3.14 x10^6/uL (4.30-5.70) Hemoglobin 10.2 g/dL (13.0-17.5) Hematocrit 30.4 % (39.0-53.0) Mean Corpuscular Volume 97 fL (79-100) Mean Corpuscular Hemoglobin 32 pg (25-35) Mean Corpuscular Hemoglobin Concent 34 g/dL (31-37) Red Cell Distribution Width 19.1 % (11.5-14.5) Platelet Count 206 x10^3/uL (140-400) Neutrophils (%) (Auto) 82 % (31-73) Lymphocytes (%) (Auto) 10 % (24-48) Monocytes (%) (Auto) 5 % (0-9) Eosinophils (%) (Auto) 3 % (0-3) Basophils (%) (Auto) 1 % (0-3) Neutrophils # (Auto) 10.6 x10^3/uL (1.8-7.7) Lymphocytes # (Auto) 1.3 x10^3/uL (1.0-4.8) Monocytes # (Auto) 0.6 x10^3/uL (0.0-1.1) Eosinophils # (Auto) 0.3 x10^3/uL (0.0-0.7) Basophils # (Auto) 0.1 x10^3/uL (0.0-0.2) Prothrombin Time 24.6 SEC (11.7-14.0) Prothromb Time International Ratio 2.2 (0.8-1.1) Stool Occult Blood Positive (NEG) Sodium Level 134 mmol/L (136-145) Potassium Level 3.3 mmol/L (3.5-5.1) Chloride Level 95 mmol/L (98-107) Carbon Dioxide Level 31 mmol/L (21-32) Anion Gap 8 (6-14) Blood Urea Nitrogen 30 mg/dL (8-26) Creatinine 8.1 mg/dL (0.7-1.3) Estimated GFR (Cockcroft-Gault) 6.7 Glucose Level 99 mg/dL (70-99) Calcium Level 9.4 mg/dL (8.5-10.1) Total Bilirubin 0.4 mg/dL (0.2-1.0) Direct Bilirubin 0.2 mg/dL (0.0-0.2) Aspartate Amino Transf (AST/SGOT) 26 U/L (15-37) Alanine Aminotransferase (ALT/SGPT) 46 U/L (16-63) Alkaline Phosphatase 101 U/L (46-116) Total Protein 8.6 g/dL (6.4-8.2) Albumin 2.7 g/dL (3.4-5.0) Glucose (Fingerstick) 90 mg/dL (70-99) Allergies: Coded Allergies: No Known Drug Allergies (Unverified , 09/27/19) PE: GEN: NAD HEENT: Atraumatic, PERRL LUNGS: CTAB HEART: RRR ABD: very large, non-tender EXTREMITY/SKIN: LE edema/wounds/discoloration NEURO/PSYCH: A & O 3 A/P: A/P: Diarrhea, ?melena H/o DOUGLAS - stable, +Hemoccult H/o colon cancer s/p surgery CRC screen - none since 2014 (cancer diagnosis) Ventral hernia w/ large and small bowel H/o PE and DVT - on Warfarin w/ ICV filter ESRD on HD LE wounds, recent atbx BMI 40 -- Okay to eat per GI. Monitor for diarrhea and bleeding - follow Hgb and r/o C Diff w/ recent atbx use. Consider acid-regional climate change analyst/GI prophylaxis. Outpt screening colonoscopy. TOMASZ BARTHOLOMEW Dec 30, 2019 10:03
[2019-12-30] MEDS: VERAPAMIL 40 MG TABLET. PO SCH ×2 (10:30→21:09)
[2019-12-30 11:00] VITALS: BP 172/79
[2019-12-30] MEDS: INSULIN LISPRO 300 UNITS/3 ML VIAL. SQ SCH ×2 (12:00→18:03)
[2019-12-30] MEDS ORDERED: IV NORMAL SALINE 1000ML BAG 1,000 ML IV PRN ×2 (12:00)
[2019-12-30] MEDS ORDERED: DIALYSIS PATIENT. MC PRN (13:15)
--- NOTE | 2019-12-30 14:34 | NUR ---
Wound Care Wound Type/Assessment: Pt seen in wound clinic on 12/29/2019, shortly prior to hospital admission. Pt off unit in HD at time of assessment today, in room. Treatment Recommendations/Plan: R HEEL: Cleanse wound. Continue Hydrofera blue ready, cover with drawtex, ABD and kerlix. Change every 2-3 days/ BILAT LEGS: Cleanse wounds with soap and water. Cover open areas with xeroform, ABDs and kerlix. Change every 2-3 days and prn soiling. Education provided: Left orange sheet and dressing materials in room with , and notified Bernice CHAU Offloading surface/device: NA. Pillows for comfort and positioning. Recommended Referrals/Tests: NA Discharge Recommendations for dressings: Is existing patient of the wound clinic. Will continue wound care in clinic following DC
--- NOTE | 2019-12-30 15:53 | NUR ---
EITAN following. Reviewed chart and spoke with RN. Pt from home with . Pt on room air and a renal diet. Pt tested negative for COVID last month on admission. Pt currently on IV Dextrose. Pt plans to return home on discharge and declined the need for therapy at a facility or through HH. Pt does dialysis on MWF at [facility], , (fax). EITAN LV for Gloria ([phone]) to coordinate care. EITAN will follow as needed. Addendum: 01/03/20 at [id number] by JASS LAIRD Pt discharged over the weekend (12/30) with orders for HH. Pt had declined the need for HH on 12/29 but this EITAN called pt at [phone] to see if had changed his mind about wanting HH. Pt stated "Hell no I don't want that. Don't bother with that." No further SW needs.
[2019-12-30] MEDS ORDERED: WARFARIN 5 MG TABLET. PO SCH (16:00)
[2019-12-30] MEDS: ASCORBIC ACID 500 MG TABLET PO SCH (17:58)
[2019-12-30] MEDS: PSYLLIUM HUSK (SUGAR FREE) 1 PKT PACKET PO SCH ×2 (17:58→21:00)
[2019-12-30] MEDS: FOLIC/VIT B COMP W-C (RENAL) TABLET. PO SCH (17:58)
[2019-12-30] MEDS: MULTIVITAMIN with MINERAL TABLET. PO SCH (17:58)
[2019-12-30] MEDS: ASPIRIN CHEWABLE 81 MG TABLET. PO SCH (17:59)
[2019-12-30 19:00] VITALS: BP 144/58
[2019-12-30] MEDS ORDERED: C.DIFF MED SCREEN BY RX. MC ONE (20:00)
[2019-12-30] MEDS ORDERED: INSULIN GLARGINE SYRINGE. SQ SCH (21:00)
[2019-12-30] MEDS ORDERED: TEMAZEPAM 15 MG CAPSULE PO SCH (21:00)
[2019-12-30 22:51] VITALS: BP 135/58
[2019-12-31 03:00] VITALS: BP 159/68
[2019-12-31 04:18] LABS: BASO # 0.1 x10^3/uL (0.0-0.2); BASO % 1 % (0-3); EOS # 0.4 x10^3/uL (0.0-0.7); EOS % 5 % (0-3); HEMOGLOBIN 10.3 g/dL (13.0-17.5); LYMPH # 1.3 x10^3/uL (1.0-4.8); LYMPH % 17 % (24-48); MEAN CORPUSCULAR HEMOGLOBIN 32 pg (25-35); MEAN CORPUSCULAR HGB CONC 33 g/dL (31-37); MEAN CORPUSCULAR VOLUME 97 fL (79-100); MONO # 0.4 x10^3/uL (0.0-1.1); MONO % 6 % (0-9); NEUT # 5.4 x10^3/uL (1.8-7.7); NEUT % 71 % (31-73); PLATELET COUNT 206 x10^3/uL (140-400); RED BLOOD COUNT 3.21 x10^6/uL (4.30-5.70); RED CELL DISTRIBUTION WIDTH 18.7 % (11.5-14.5); WHITE BLOOD COUNT 7.6 x10^3/uL (4.0-11.0)
[2019-12-31 04:41] LABS: CALCIUM 8.8 mg/dL (8.5-10.1); CREATININE 6.6 mg/dL (0.7-1.3); GFR 8.5; POTASSIUM 3.8 mmol/L (3.5-5.1)
[2019-12-31 07:00] VITALS: BP 153/73
[2019-12-31] MEDS: DOXYCYCLINE HYCLATE 100 MG TABLET PO SCH (08:22)
[2019-12-31] MEDS: MULTIVITAMIN with MINERAL TABLET. PO SCH (08:22)
[2019-12-31] MEDS: ASCORBIC ACID 500 MG TABLET PO SCH (08:22)
[2019-12-31] MEDS: FOLIC/VIT B COMP W-C (RENAL) TABLET. PO SCH (08:22)
[2019-12-31] MEDS: ASPIRIN CHEWABLE 81 MG TABLET. PO SCH (08:22)
[2019-12-31] MEDS: VERAPAMIL 40 MG TABLET. PO SCH (08:24)
[2019-12-31] MEDS: INSULIN LISPRO 300 UNITS/3 ML VIAL. SQ SCH ×2 (08:30→11:56)
--- NOTE | 2019-12-31 09:50 | PDOC ---
[employer] PROGRESS NOTE Date of Service DOS: DATE: 12/31/19 TIME: 09:49 Chief Complaint Chief Complaint A/P: Blood in stool - likely 2/2 diverticulosis DIarrhea - given exposure to antibiotics, will check c. difficile, consult GI Anemia - likely of GI blood loss and chronic anemia of renal disease Right heel wound - looks good to me LLE wounds - on doxycycline, will have wound care to see Malignant hypertension Type 2 diabetes with hyperglycemia - sliding scale and basal Severe protein calorie malnutrition ESRD on HD - HD today Pulmonary edema H/o DVT and PE s/p IVC filter H/o colectomy Ventral hernia FEN - Renal ADA diet PPX - warfarin Full code Dispo - inpatient History of Present Illness History of Present Illness Mr Denny is a 64 yo M w/ PMHx ESRD HD M/W/F, Right heel wound, HTN, DM2, DVT and PE s/p IVC filter on warfarin, prior colectomy, ventral hernia who presents to the ER with complaint of dark stools. Patient states he has had black tarry stools over the past week. He states today his symptoms seem to worsen. He states over the past several hours he has not been able to make it to the toilet. He states whenever he stands up or tries to ambulate loose stool that is black-colored, though he did take pepto bismol. Does note some intermittent brief abdominal discomfort with bowel movements tonight. States the pain is sharp. States it lasted few minutes and resolved after bowel movement. Denies chest pain or shortness of breath. Denies objective fevers. No other complaints. He and his do note that he has been on the prescription for Augmentin and was just transitioned to doxycycline per wound care for his left lower extremity wounds and he would like to be seen by wound care again. He is asking not to be on a diabetic or renal diet wants to eat regular diet uses he "can handle two [employer] cheeseburgers and fries just fine." INR 2.2, Hemoccult positive. Hb 10.2, WBC 12.9. No imaging or EKG performed in ED. Called for admission for further care. Afebrile overnight. Had formed stool sent for C. difficile. NA dropped to 131. WBC noted 7.6, Hb 10.3. Vitals/I&O Vitals/I&O: Vital Signs Date Time Temp Pulse Resp B/P (MAP) Pulse Ox O2 Delivery O2 Flow Rate FiO2 12/31/19 08:24 73 153/73 12/31/19 07:00 97.5 20 97 Room Air 97.5 I & O 12/30/19 12/30/19 12/31/19 15:00 23:00 07:00 Output Total 0 ml 0 ml Balance 0 ml 0 ml Physical Exam General: Alert, Oriented X3, Cooperative, No acute distress Lungs: Clear, Crackles Abdomen: Normal bowel sounds, Soft, No tenderness, No hepatosplenomegaly, No masses Extremities: No clubbing, No cyanosis, Normal pulses, No tenderness/swelling Skin: Other (Bilateral pitting edema left knees, left foot with cracked blistered skin and erythema, slight drainage) Labs Labs: Laboratory Tests Test 12/30/19 11:39 12/30/19 17:34 12/30/19 21:07 12/31/19 03:40 Glucose (Fingerstick) 160 mg/dL (70-99) 160 mg/dL (70-99) 286 mg/dL (70-99) White Blood Count 7.6 x10^3/uL (4.0-11.0) Red Blood Count 3.21 x10^6/uL (4.30-5.70) Hemoglobin 10.3 g/dL (13.0-17.5) Hematocrit 31.0 % (39.0-53.0) Mean Corpuscular Volume 97 fL (79-100) Mean Corpuscular Hemoglobin 32 pg (25-35) Mean Corpuscular Hemoglobin Concent 33 g/dL (31-37) Red Cell Distribution Width 18.7 % (11.5-14.5) Platelet Count 206 x10^3/uL (140-400) Neutrophils (%) (Auto) 71 % (31-73) Lymphocytes (%) (Auto) 17 % (24-48) Monocytes (%) (Auto) 6 % (0-9) Eosinophils (%) (Auto) 5 % (0-3) Basophils (%) (Auto) 1 % (0-3) Neutrophils # (Auto) 5.4 x10^3/uL (1.8-7.7) Lymphocytes # (Auto) 1.3 x10^3/uL (1.0-4.8) Monocytes # (Auto) 0.4 x10^3/uL (0.0-1.1) Eosinophils # (Auto) 0.4 x10^3/uL (0.0-0.7) Basophils # (Auto) 0.1 x10^3/uL (0.0-0.2) Sodium Level 131 mmol/L (136-145) Potassium Level 3.8 mmol/L (3.5-5.1) Chloride Level 93 mmol/L (98-107) Carbon Dioxide Level 29 mmol/L (21-32) Anion Gap 9 (6-14) Blood Urea Nitrogen 24 mg/dL (8-26) Creatinine 6.6 mg/dL (0.7-1.3) Estimated GFR (Cockcroft-Gault) 8.5 Glucose Level 284 mg/dL (70-99) Calcium Level 8.8 mg/dL (8.5-10.1) Test 12/31/19 07:36 Glucose (Fingerstick) 211 mg/dL (70-99) Assessment and Plan Assessmemt and Plan Problems Medical Problems: (1) Anticoagulated on Coumadin Status: Acute (2) Bloody diarrhea Status: Acute (3) ESRD (end stage renal disease) Status: Acute Comment Review of Relevant I have reviewed the following items joyce (where applicable) has been applied. Medications: Current Medications Medications (Trade) Dose Ordered Sig/Cristian Route PRN Reason Start Time Stop Time Status Last Admin Dose Admin Psyllium Hydrophilic Mucilloid (Metamucil Fiber Packet) 1 pkt QHS PO 12/30/19 10:00 12/30/19 17:58 Doxycycline Hyclate (Vibra-Tab) 100 mg BID PO 12/30/19 10:00 12/31/19 08:22 Ascorbic Acid (Vitamin C) 500 mg DAILY PO 12/30/19 10:30 12/31/19 08:22 Aspirin (Aspirin Chewable) 81 mg DAILY PO 12/30/19 10:30 12/31/19 08:22 Vitamin B Complex/ Vitamin C (Cassie-Nyla) 1 tab DAILY PO 12/30/19 10:30 12/31/19 08:22 Multivitamins (Thera M Plus) 1 tab DAILY PO 12/30/19 10:30 12/31/19 08:22 Temazepam (Restoril) 15 mg QHS PO 12/30/19 21:00 12/30/19 23:36 Warfarin Sodium (Coumadin) 5 mg DAILY16 PO 12/30/19 16:00 12/30/19 17:59 Insulin Glargine (Lantus Syringe) 35 unit QHS SQ 12/30/19 21:00 12/30/19 21:14 Verapamil HCl (Calan) 160 mg BID PO 12/30/19 10:30 12/31/19 08:24 Insulin Human Lispro (HumaLOG) 0-9 UNITS TIDWMEALS SQ 12/30/19 12:00 12/31/19 08:30 Justifications for Admission Other Justification ALEX ARENAS MD Dec 31, 2019 09:50
[2019-12-31] MEDS ORDERED: DOXY100T PO (10:58)
--- NOTE | 2019-12-31 11:00 | SNU/HH DC ---
DISCHARGE WITH HOME HEALTH DISCHARGE INFORMATION: Discharge Date: Dec 31, 2019 Final Diagnosis: Problems Medical Problems: (1) Anticoagulated on Coumadin Status: Acute (2) Bloody diarrhea Status: Acute (3) ESRD (end stage renal disease) Status: Acute Condition on Discharge: Stable CODE STATUS: Code Status: Full HOME HEALTH: Face to Face: I certify this patient is under my care and that I, or a nurse practitioner or physician's assistant football coach working with me, had a face to face encounter that meets the physician face to face encounter requirements with this patient on 12/31/2019. 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 For Eval/Treatment: Yes Physical Therapy For: Evalulation/Treatment Occupational Therapy For: Evaluation/Treatment Pt Meets Homebound Status: Extreme weakness w/ amb., Limited distance walking POST DISCHARGE ORDERS: Activity Instructions for Disc: Resume previous activity, Activity as tolerated Weight Bearing Status after Di: As tolerated Bathing Instructions: Shower-keep dressing dry Wound/Incision Care: Change dressing CHECKS AFTER DISCHARGE: Checks after discharge: Check blood press - daily, Check blood sugar, ac/hs FOLLOW-UP: Follow up with: Nephrology and wound care TREATMENT/EQUIPMENT ORDERS: Adaptive Equipment Issued: None CERTIFICATION STATEMENT: Certification Statement: Certification Statement: Based on the above finding, I certify that this patient is confined to the home and needs intermittent residential care, physical therapy and/or speech therapy, or continues to need occupational therapy.~ This patient is under my care, and I have initiated the establishment of the plan of care.~ This patient will be followed by myself or a community physician who will periodically review the plan of care. Home Meds Active Scripts Doxycycline Hyclate (DOXYCYCLINE HYCLATE) 100 Mg Tablet, 100 MG PO BID for Cellulitis for 10 Days, #20 TAB Prov:ARASHFEALEX Flannery MD 12/31/19 Multivits,Ca,Minerals/Iron/Fa (THERA-M TABLET) 1 Each Tablet, 1 TAB PO DAILY for SUPPLEMENT for 30 Days, #30 TAB Prov:AMADA BRYANT MD 08/30/18 Ascorbic Acid (VITAMIN C) 500 Mg Tablet, 500 MG PO DAILY for SUPPLEMENT for 30 Days, #30 TAB Prov:AMADA BRYANT MD 08/30/18 Ondansetron (ZOFRAN ODT) 4 Mg Tab.rapdis, 4 MG PO BID PRN for NAUSEA/VOMITING, #10 TAB Prov:JASWINDER DOMINGUEZ DO 06/26/17 Reported Medications Temazepam (TEMAZEPAM) 15 Mg Capsule, 1 CAP PO QHS for insomia, #30 CAP 1 Refill 12/16/19 Losartan Potassium (LOSARTAN POTASSIUM) 50 Mg Tablet, 25 MG PO DAILY for HYPERTENSION, TAB 12/16/19 Verapamil Hcl (VERAPAMIL HCL) 80 Mg Tablet, 2 TAB PO BID for htn, TAB 12/16/19 Insulin Lispro (HUMALOG) 100 Unit/1 Ml Vial, 60 UNIT SQ DAILYWSUP for rx, VIAL 09/27/19 Insulin Glargine,Hum.rec.anlog (LANTUS SOLOSTAR) 100 Unit/1 Ml Insuln.pen, 35 UNIT SQ BIDAC PRN for rx, #15 ML 3 Refills 09/27/19 Aspirin (ASPIRIN) 81 Mg Tab.chew, 1 TAB PO DAILY for antiplatelet, #30 TAB 3 Refills 08/26/18 Acetaminophen (ACETAMINOPHEN) 500 Mg Tablet, 1 TAB PO BID PRN for PAIN, #60 TAB 1 Refill 08/26/18 Folic Acid/Vit Bcomp,C (Renal Vitamin Tablet) 0.8 Mg Tablet, 0.8 MG PO DAILY 05/22/16 Insulin Lispro (HUMALOG) 100 Unit/1 Ml Insuln.pen, 50 UNIT SQ BIDACBL, SYR 05/22/16 Warfarin Sodium (WARFARIN SODIUM) 5 Mg Tablet, 5 MG PO DAILY for DVT Hx, TAB 12/19/13 Discontinued Scripts Amoxicillin/Potassium Clav (AUGMENTIN 500-125 TABLET) 1 Each Tablet, 1 TAB PO BID for cellulitis for 5 Days, #10 TAB 0 Refills Prov:EDER NAJERA MD 12/19/19 ALEX ARENAS MD Dec 31, 2019 11:00
--- NOTE | 2019-12-31 11:02 | PDOC3 ---
Discharge Summary Visit Information Date of Admission: Dec 30, 2019 Date of Discharge: Dec 31, 2019 Admitting Diagnosis: Bloody diarrhea Final Diagnosis Problems Medical Problems: (1) Anticoagulated on Coumadin Status: Acute (2) Bloody diarrhea Status: Acute (3) ESRD (end stage renal disease) Status: Acute Brief Hospital Course Allergies Allergies Coded Allergies Type Severity Reaction Last Updated Verified No Known Drug Allergies 09/27/19 No Vital Signs Vital Signs Date Time Temp Pulse Resp B/P (MAP) Pulse Ox O2 Delivery O2 Flow Rate FiO2 12/31/19 08:24 73 153/73 12/31/19 07:00 97.5 20 97 Room Air 97.5 Lab Results Laboratory Tests Test 12/30/19 03:20 12/30/19 08:53 12/30/19 11:39 12/30/19 17:34 White Blood Count 12.9 x10^3/uL (4.0-11.0) Red Blood Count 3.14 x10^6/uL (4.30-5.70) Hemoglobin 10.2 g/dL (13.0-17.5) Hematocrit 30.4 % (39.0-53.0) Mean Corpuscular Volume 97 fL (79-100) Mean Corpuscular Hemoglobin 32 pg (25-35) Mean Corpuscular Hemoglobin Concent 34 g/dL (31-37) Red Cell Distribution Width 19.1 % (11.5-14.5) Platelet Count 206 x10^3/uL (140-400) Neutrophils (%) (Auto) 82 % (31-73) Lymphocytes (%) (Auto) 10 % (24-48) Monocytes (%) (Auto) 5 % (0-9) Eosinophils (%) (Auto) 3 % (0-3) Basophils (%) (Auto) 1 % (0-3) Neutrophils # (Auto) 10.6 x10^3/uL (1.8-7.7) Lymphocytes # (Auto) 1.3 x10^3/uL (1.0-4.8) Monocytes # (Auto) 0.6 x10^3/uL (0.0-1.1) Eosinophils # (Auto) 0.3 x10^3/uL (0.0-0.7) Basophils # (Auto) 0.1 x10^3/uL (0.0-0.2) Prothrombin Time 24.6 SEC (11.7-14.0) Prothromb Time International Ratio 2.2 (0.8-1.1) Stool Occult Blood Positive (NEG) Sodium Level 134 mmol/L (136-145) Potassium Level 3.3 mmol/L (3.5-5.1) Chloride Level 95 mmol/L (98-107) Carbon Dioxide Level 31 mmol/L (21-32) Anion Gap 8 (6-14) Blood Urea Nitrogen 30 mg/dL (8-26) Creatinine 8.1 mg/dL (0.7-1.3) Estimated GFR (Cockcroft-Gault) 6.7 Glucose Level 99 mg/dL (70-99) Calcium Level 9.4 mg/dL (8.5-10.1) Total Bilirubin 0.4 mg/dL (0.2-1.0) Direct Bilirubin 0.2 mg/dL (0.0-0.2) Aspartate Amino Transf (AST/SGOT) 26 U/L (15-37) Alanine Aminotransferase (ALT/SGPT) 46 U/L (16-63) Alkaline Phosphatase 101 U/L (46-116) Total Protein 8.6 g/dL (6.4-8.2) Albumin 2.7 g/dL (3.4-5.0) Glucose (Fingerstick) 90 mg/dL (70-99) 160 mg/dL (70-99) 160 mg/dL (70-99) Test 12/30/19 21:07 12/31/19 03:40 12/31/19 07:36 12/31/19 10:58 Glucose (Fingerstick) 286 mg/dL (70-99) 211 mg/dL (70-99) 339 mg/dL (70-99) White Blood Count 7.6 x10^3/uL (4.0-11.0) Red Blood Count 3.21 x10^6/uL (4.30-5.70) Hemoglobin 10.3 g/dL (13.0-17.5) Hematocrit 31.0 % (39.0-53.0) Mean Corpuscular Volume 97 fL (79-100) Mean Corpuscular Hemoglobin 32 pg (25-35) Mean Corpuscular Hemoglobin Concent 33 g/dL (31-37) Red Cell Distribution Width 18.7 % (11.5-14.5) Platelet Count 206 x10^3/uL (140-400) Neutrophils (%) (Auto) 71 % (31-73) Lymphocytes (%) (Auto) 17 % (24-48) Monocytes (%) (Auto) 6 % (0-9) Eosinophils (%) (Auto) 5 % (0-3) Basophils (%) (Auto) 1 % (0-3) Neutrophils # (Auto) 5.4 x10^3/uL (1.8-7.7) Lymphocytes # (Auto) 1.3 x10^3/uL (1.0-4.8) Monocytes # (Auto) 0.4 x10^3/uL (0.0-1.1) Eosinophils # (Auto) 0.4 x10^3/uL (0.0-0.7) Basophils # (Auto) 0.1 x10^3/uL (0.0-0.2) Sodium Level 131 mmol/L (136-145) Potassium Level 3.8 mmol/L (3.5-5.1) Chloride Level 93 mmol/L (98-107) Carbon Dioxide Level 29 mmol/L (21-32) Anion Gap 9 (6-14) Blood Urea Nitrogen 24 mg/dL (8-26) Creatinine 6.6 mg/dL (0.7-1.3) Estimated GFR (Cockcroft-Gault) 8.5 Glucose Level 284 mg/dL (70-99) Calcium Level 8.8 mg/dL (8.5-10.1) Laboratory Tests Test 12/30/19 11:39 12/30/19 17:34 12/30/19 21:07 12/31/19 03:40 Glucose (Fingerstick) 160 mg/dL (70-99) 160 mg/dL (70-99) 286 mg/dL (70-99) White Blood Count 7.6 x10^3/uL (4.0-11.0) Red Blood Count 3.21 x10^6/uL (4.30-5.70) Hemoglobin 10.3 g/dL (13.0-17.5) Hematocrit 31.0 % (39.0-53.0) Mean Corpuscular Volume 97 fL (79-100) Mean Corpuscular Hemoglobin 32 pg (25-35) Mean Corpuscular Hemoglobin Concent 33 g/dL (31-37) Red Cell Distribution Width 18.7 % (11.5-14.5) Platelet Count 206 x10^3/uL (140-400) Neutrophils (%) (Auto) 71 % (31-73) Lymphocytes (%) (Auto) 17 % (24-48) Monocytes (%) (Auto) 6 % (0-9) Eosinophils (%) (Auto) 5 % (0-3) Basophils (%) (Auto) 1 % (0-3) Neutrophils # (Auto) 5.4 x10^3/uL (1.8-7.7) Lymphocytes # (Auto) 1.3 x10^3/uL (1.0-4.8) Monocytes # (Auto) 0.4 x10^3/uL (0.0-1.1) Eosinophils # (Auto) 0.4 x10^3/uL (0.0-0.7) Basophils # (Auto) 0.1 x10^3/uL (0.0-0.2) Sodium Level 131 mmol/L (136-145) Potassium Level 3.8 mmol/L (3.5-5.1) Chloride Level 93 mmol/L (98-107) Carbon Dioxide Level 29 mmol/L (21-32) Anion Gap 9 (6-14) Blood Urea Nitrogen 24 mg/dL (8-26) Creatinine 6.6 mg/dL (0.7-1.3) Estimated GFR (Cockcroft-Gault) 8.5 Glucose Level 284 mg/dL (70-99) Calcium Level 8.8 mg/dL (8.5-10.1) Test 12/31/19 07:36 12/31/19 10:58 Glucose (Fingerstick) 211 mg/dL (70-99) 339 mg/dL (70-99) Brief Hospital Course Mr Denny is a 64 yo M w/ PMHx ESRD HD M/W/F, Right heel wound, HTN, DM2, DVT and PE s/p IVC filter on warfarin, prior colectomy, ventral hernia who presents to the ER with complaint of dark stools. Patient states he has had black tarry stools over the past week. He states today his symptoms seem to worsen. He states over the past several hours he has not been able to make it to the toilet. He states whenever he stands up or tries to ambulate loose stool that is black-colored, though he did take pepto bismol. Does note some intermittent brief abdominal discomfort with bowel movements tonight. States the pain is sharp. States it lasted few minutes and resolved after bowel movement. Denies chest pain or shortness of breath. Denies objective fevers. No other complaints. He and his do note that he has been on the prescription for Augmentin and was just transitioned to doxycycline per wound care for his left lower extremity wounds and he would like to be seen by wound care again. He is asking not to be on a diabetic or renal diet wants to eat regular diet uses he "can handle two [employer] cheeseburgers and fries just fine." INR 2.2, Hemoccult positive. Hb 10.2, WBC 12.9. No imaging or EKG performed in ED. Called for admission for further care. Afebrile overnight. Had formed stool sent for C. difficile. NA dropped to 131. WBC noted 7.6, Hb 10.3. He is anxious to leave, feeling much improved. Consults: GI, nephrology, wound care Problem list: Blood in stool - likely 2/2 diverticulosis DIarrhea - given exposure to antibiotics, will check c. difficile, consult GI Anemia - likely of GI blood loss and chronic anemia of renal disease Right heel wound - looks good to me LLE wounds - on doxycycline, will have wound care to see Malignant hypertension Type 2 diabetes with hyperglycemia - sliding scale and basal Severe protein calorie malnutrition ESRD on HD - HD today Pulmonary edema H/o DVT and PE s/p IVC filter H/o colectomy Ventral hernia Greater than 30 minutes spent on d/c Discharge Information Condition at Discharge: Improved Follow Up: Weeks Disposition/Orders: D/C to Home w/ HH Scheduled Ascorbic Acid (Vitamin C) 500 Mg Tablet, 500 MG PO DAILY for SUPPLEMENT for 30 Days, #30 Prescribed by: AMADA BRYANT MD on 08/30/18 1367 Last Action: Continued on 12/30/19 0958 by ALEX ARENAS MD Aspirin (Aspirin) 81 Mg Tab.chew, 1 TAB PO DAILY for antiplatelet, #30 Ref 3 (Reported) Entered as Reported by: ANJEL WU on 08/26/18 0329 Last Action: Continued on 12/30/19957 by ALEX ARENAS MD Doxycycline Hyclate (Doxycycline Hyclate) 100 Mg Tablet, 100 MG PO BID for Cellulitis for 10 Days, #20 Prescribed by: ALEX ARENAS MD on 12/31/19 1058 Folic Acid/Vit Bcomp,C (Renal Vitamin Tablet) 0.8 Mg Tablet, 0.8 MG PO DAILY, (Reported) Entered as Reported by: HOANG AGUIRRE on 05/22/16 0800 Last Action: Continued on 12/30/19957 by ALEX ARENAS MD Insulin Lispro (Humalog) 100 Unit/1 Ml Insuln.pen, 50 UNIT SQ BIDACBL, (Repo rted) Entered as Reported by: HOANG AGUIRRE on 05/22/16 0800 Insulin Lispro (Humalog) 100 Unit/1 Ml Vial, 60 UNIT SQ DAILYWSUP for rx, (Reported) Entered as Reported by: CHUCKY FLYNN on 09/27/19 0847 Losartan Potassium (Losartan Potassium) 50 Mg Tablet, 25 MG PO DAILY for HYPERTENSION, (Reported) Entered as Reported by: BALTA BENITO on 12/16/19 1134 Multivits,Ca,Minerals/Iron/Fa (Thera-M Tablet) 1 Each Tablet, 1 TAB PO DAILY for SUPPLEMENT for 30 Days, #30 Prescribed by: AMADA BRYANT MD on 08/30/18 1415 Last Action: Continued on 12/30/19957 by ALEX ARENAS MD Temazepam (Temazepam) 15 Mg Capsule, 1 CAP PO QHS for insomia, #30 Ref 1 (Reported) Entered as Reported by: BALTA BENITO on 12/16/19 1134 Last Action: Continued on 12/30/19957 by ALEX ARENAS MD Verapamil Hcl (Verapamil Hcl) 80 Mg Tablet, 2 TAB PO BID for htn, (Reported) Entered as Reported by: BALTA BENITO on 12/16/19 1134 Last Action: Converted on 12/30/19 0959 by ALEX ARENAS MD Warfarin Sodium (Warfarin Sodium) 5 Mg Tablet, 5 MG PO DAILY for DVT Hx, (Reported) Entered as Reported by: COBY LA on 12/19/13 1125 Last Action: Continued on 12/30/19958 by ALEX ARENAS MD Scheduled PRN Acetaminophen (Acetaminophen) 500 Mg Tablet, 1 TAB PO BID PRN for PAIN, #60 Ref 1 (Reported) Entered as Reported by: ANJEL WU on 08/26/18 0329 Last Action: Continued on 12/30/19957 by ALEX ARENAS MD Insulin Glargine,Hum.rec.anlog (Lantus Solostar) 100 Unit/1 Ml Insuln.pen, 35 UNIT SQ BIDAC PRN for rx, #15 Ref 3 (Reported) Entered as Reported by: CHUCKY FLYNN on 09/27/19 0847 Last Action: Converted on 12/30/19958 by ALEX ARENAS MD Ondansetron (Zofran Odt) 4 Mg Tab.rapdis, 4 MG PO BID PRN for NAUSEA/VOMITING, #10 Prescribed by: JASWINDER DOMINGUEZ on 06/26/17 1852 Last Action: Continued on 12/30/19957 by ALEX ARENAS MD Discontinued Medications Amoxicillin/Potassium Clav (Augmentin 500-125 Tablet) 1 Each Tablet, 1 TAB PO BID for cellulitis for 5 Days, #10 Ref 0 Prescribed by: EDER NAJERA MD on 12/19/19 1425 Justicifation of Admission Dx: Justifications for Admission: Justification of Admission Dx: Yes Chronic Renal Failure: Hypertension Cellulitis: Cellulitis ALEX ARENAS MD Dec 31, 2019 11:02
[2019-12-31 11:18] VITALS: BP 140/87
[2020-01-13] MEDS ORDERED: BACL10TA PO (15:12)
== END 2019-12-31 12:00 | disposition home health service (06) | DRG 377 ==
LOC: ER 02:36 → 5 NORTH 05:20
PROVIDERS: ADMIT Family Medicine; ATTEND Family Medicine
PROC: 5A1D70Z Performance of Urinary Filtration, Intermittent, Less than 6 Hours Per Day (ICD-10-PCS; principal; 2019-12-30)
DX: K57.91 Diverticulosis of intestine, part unspecified, without perforation or abscess with bleeding (principal); N18.6 End stage renal disease; E43 Unspecified severe protein-calorie malnutrition; Z68.41 Body mass index [BMI] 40.0-44.9, adult; J81.1 Chronic pulmonary edema; I12.0 Hypertensive chronic kidney disease with stage 5 chronic kidney disease or end stage renal disease; E11.22 Type 2 diabetes mellitus with diabetic chronic kidney disease; E78.5 Hyperlipidemia, unspecified; J44.9 Chronic obstructive pulmonary disease, unspecified; K43.9 Ventral hernia without obstruction or gangrene; D50.0 Iron deficiency anemia secondary to blood loss (chronic); D63.1 Anemia in chronic kidney disease; E11.65 Type 2 diabetes mellitus with hyperglycemia; D64.9 Anemia, unspecified; E11.42 Type 2 diabetes mellitus with diabetic polyneuropathy; Z79.82 Long term (current) use of aspirin; Z79.4 Long term (current) use of insulin; Z79.01 Long term (current) use of anticoagulants; Z87.891 Personal history of nicotine dependence; Z90.49 Acquired absence of other specified parts of digestive tract; Z99.2 Dependence on renal dialysis; Z85.038 Personal history of other malignant neoplasm of large intestine; Z86.718 Personal history of other venous thrombosis and embolism; Z95.828 Presence of other vascular implants and grafts; Z86.711 Personal history of pulmonary embolism; Z82.49 Family history of ischemic heart disease and other diseases of the circulatory system; Z83.3 Family history of diabetes mellitus; Z80.9 Family history of malignant neoplasm, unspecified
CPT/HCPCS: 36415; 80048; 80076; 82274; 82962; 85025; 85610; 86850; 86900; 86901; 99285; J1815; G0378

== ENCOUNTER 2020-01-09 06:41 | Emergency (ER) | payer MEDICARE, OTHER ==
[~2020-01-09] VITALS: Ht 193 cm; Wt 150.0 kg
[~2020-01-09 06:41] MED LIST changes: +DOXY100T PO
[2020-01-09 06:52] VITALS: BP 195/90
--- NOTE | 2020-01-09 07:39 | RAD ---
ANKLE LEFT 3V DATE: 01/09/2020 6:56 AM INDICATION: Reason: pain, pt fell lt ankle pain redness / Spl. Instructions: / History: COMPARISON: None. FINDINGS: Bones: There is no evidence of acute fracture or dislocation. Posterior and plantar calcaneal enthesophytes. Joints: The ankle mortise is congruent. No widening of the distal tibiofibular syndesmosis. Miscellaneous: Atherosclerotic vascular calcifications. IMPRESSION: No evidence of acute fracture. Electronically signed by: Tristian Hamilton MD (01/09/2020 7:36 AM) [id number]
--- NOTE | 2020-01-09 07:40 | RAD ---
KNEE LEFT 3V DATE: 01/09/2020 6:56 AM INDICATION: Reason: pain, pt fell lt knee pain / Spl. Instructions: / History: COMPARISON: None. FINDINGS: Bones: There is no evidence of acute fracture or dislocation. Joints: The joint spaces are normal. Trace joint effusion. Miscellaneous: Atherosclerotic vascular calcifications. IMPRESSION: No acute fracture. Electronically signed by: Tristian Hamilton MD (01/09/2020 7:37 AM) [id number]
--- NOTE | 2020-01-09 07:58 | PHYS DOC ---
Past Medical History Past Medical History: DVT, Hypertension, Renal Disease Additional Past Medical Histor: neuropathy, PE Past Surgical History: Other Additional Past Surgical Histo: colon resection Smoking Status: Former Smoker Alcohol Use: Rarely Drug Use: None General Adult EDM: Chief Complaint: MECHANICAL FALL HPI: HPI: Patient is a 64-year-old male who presents to the emergency room after having a fall. Patient states that he tripped and fell on his left knee and ankle went backwards. He is having left ankle pain. He states his knee feels wobbly when he tried to stand up. He denies any other injuries. He did not lose consciousness. He goes to wound care multiple times a week and his takes care of his wounds. He has chronic wounds on his legs that are unchanged. Review of Systems: Review of Systems: General: Denies fever, chills, sweats, fatigue Eyes: Denies drainage, blurred vision, eye redness HENT: Denies rhinorrhea, sore throat, earache Respiratory: Denies cough, shortness of breath, wheezing Cardiac: Denies edema, palpitations, chest pain GI: Denies abdominal pain, Nausea, vomiting MSK: Denies back pain, neck pain Skin: Denies rash, jaundice Neuro: Denies headache, dizziness Psychiatric: Denies SI/HI Heart Score: Risk Factors: Risk Factors: DM, Current or recent (<one month) smoker, HTN, HLP, family history of CAD, obesity. Risk Scores: Score 0 - 3: 2.5% MACE over next 6 weeks - Discharge Home Score 4 - 6: 20.3% MACE over next 6 weeks - Admit for Clinical Observation Score 7 - 10: 72.7% MACE over next 6 weeks - Early Invasive Strategies Allergies: Allergies: Allergies Coded Allergies Type Severity Reaction Last Updated Verified No Known Drug Allergies 09/27/19 No Physical Exam: PE: General: Awake, alert, NAD. Well Nourished, well hydrated. Cooperative HEENT: Atraumatic, EOMI, PERRL, airway patent, moist oral mucosa Neck: Supple, trachea midline Respiratory: CTA bilaterally, normal effort, no wheezing/crackles CV: RRR, no murmur, cap refill <2 GI: Soft, nondistended, nontender, no masses MSK: No obvious deformities Skin: Warm, dry, intact, chronic wounds and discoloration of bilateral lower extremities Neuro: A&O x3, speech NL, sensory and motor grossly intact, no focal deficits Psych: Normal affect, normal mood, not suicidal or homicidal Current Patient Data: Vital Signs: Vital Signs Date Time Temp Pulse Resp B/P (MAP) Pulse Ox O2 Delivery O2 Flow Rate FiO2 01/09/20 06:52 97.9 96 16 195/90 (125) 96 Room Air 97.9 EKG: EKG: [] Radiology/Procedures: Radiology/Procedures: [] Course & Med Decision Making: Course & Med Decision Making Pertinent Labs and Imaging studies reviewed. (See chart for details) Patient is a 64-year-old male who presents to the emergency room after having a fall from standing. She denies any syncope, chest pain, shortness of breath. He does not need syncopal work-up at this time. X-rays were done of the ankle and knee which are normal. There is no obvious signs of deformity. Patient will be discharged home will given information to follow-up as needed with orthopedic surgery. Patient's test results and vitals while in the ED were fully reviewed and discussed with the patient. Patient is stable and at this time does not need admission to the hospital. We have discussed strict return precautions and the importance of following up with their Primary Care Physician. Patient stated understanding and was given an opportunity to ask any questions. Patient is in agreement with plan. Weson Disclaimer: Jonna Disclaimer: This electronic medical record was generated, in whole or in part, using a voice recognition dictation system. Departure Departure Impression: Primary Impression: Fall Additional Impressions: Knee pain Ankle pain Disposition: HOME, SELF-CARE Condition: STABLE Referrals: HIGINIO WISE MD (PCP) JOSEPH ESPOSITO II, MD Patient Instructions: Ankle Pain, Fall Prevention and Home Safety Justicifation of Admission Dx: Justifications for Admission: Justification of Admission Dx: N/A Chronic Renal Failure: Hypertension Cellulitis: Cellulitis JERMAINE ALMAZAN MD Jan 09, 2020 07:58
[2020-01-10] MEDS ORDERED: PSYL0.5215 PO (21:26)
== END 2020-01-09 08:10 | disposition home or self-care (01) ==
LOC: ER 06:41
DX: G89.11 Acute pain due to trauma (principal); M25.562 Pain in left knee; M25.572 Pain in left ankle and joints of left foot; I10 Essential (primary) hypertension; N18.9 Chronic kidney disease, unspecified; Z98.890 Other specified postprocedural states; Z87.891 Personal history of nicotine dependence; Z86.718 Personal history of other venous thrombosis and embolism; W01.0XXA Fall on same level from slipping, tripping and stumbling without subsequent striking against object, initial encounter; Y93.89 Activity, other specified; Y92.89 Other specified places as the place of occurrence of the external cause; Y99.8 Other external cause status
CPT/HCPCS: 73562; 73610; 99284

== ENCOUNTER 2020-01-10 14:25 | Inpatient (IN) | payer MEDICARE, OTHER ==
[~2020-01-10] VITALS: Ht 193 cm; Wt 152.4 kg
[2020-01-10 15:19] LABS: BASO # 0.1 x10^3/uL (0.0-0.2); BASO % 1 % (0-3); EOS # 0.3 x10^3/uL (0.0-0.7); EOS % 4 % (0-3); HEMATOCRIT 30.4 % (39.0-53.0); HEMOGLOBIN 10.4 g/dL (13.0-17.5); LYMPH # 1.1 x10^3/uL (1.0-4.8); LYMPH % 13 % (24-48); MEAN CORPUSCULAR HEMOGLOBIN 32 pg (25-35); MEAN CORPUSCULAR HGB CONC 34 g/dL (31-37); MEAN CORPUSCULAR VOLUME 93 fL (79-100); MONO # 0.4 x10^3/uL (0.0-1.1); MONO % 5 % (0-9); NEUT # 6.5 x10^3/uL (1.8-7.7); NEUT % 77 % (31-73); PLATELET COUNT 214 x10^3/uL (140-400); RED BLOOD COUNT 3.26 x10^6/uL (4.30-5.70); RED CELL DISTRIBUTION WIDTH 16.8 % (11.5-14.5); WHITE BLOOD COUNT 8.4 x10^3/uL (4.0-11.0)
[2020-01-10 15:30] LABS: CALCIUM 9.4 mg/dL (8.5-10.1); GFR 4.3; POTASSIUM 4.5 mmol/L (3.5-5.1)
[2020-01-10 15:36] LABS: ALBUMIN 2.9 g/dL (3.4-5.0); ALBUMIN/GLOBULIN RATIO 0.5 (1.0-1.7); TOTAL BILIRUBIN 0.5 mg/dL (0.2-1.0); TOTAL PROTEIN 8.3 g/dL (6.4-8.2)
[2020-01-10 15:46] LABS: CREATINE KINASE 57 U/L (39-308)
--- NOTE | 2020-01-10 16:15 | RAD ---
EXAM: CT lumbar spine without IV contrast CLINICAL HISTORY:Reason: unable to ambulate after fall yesterday / Spl. Instructions: / History: COMPARISON: None available. TECHNIQUE: Helical CT was performed through the lumbar spine. Axial, coronal and sagittal reformatted images were generated. PQRS compliance statement - One or more of the following individualized dose reduction techniques were utilized for this study: 1. Automated exposure control 2. Adjustment of the mA and/or kV according to patient size 3. Use of iterative reconstruction technique FINDINGS: Of note, examination is limited given CT beam attenuation and associated artifact. Vertebral body heights are preserved. No acute fracture. Mild T12-L1, L1-L2 disc height loss. Mild L5-S1 disc height loss. Anterior endplate osteophytes are seen. Straightening of the normal lumbar lordosis. No spondylolisthesis. Schmorl's node at the inferior endplate of L1. Small right pleural effusion. Associated dependent right lower lobe opacities likely atelectasis. Enlarged retroperitoneal and iliac chain lymph nodes are seen. For example a left para-aortic lymph node (series 2 image 28 measures 2.2 x 1.3 cm. Heel Spr[employer] right external iliac chain lymph node measures 2.3 x 1.2 cm. Kidneys are atrophic. Aortic calcifications are seen. IVC filter is noted. IMPRESSION: 1. Multilevel spondylosis as above 2. Negative acute fracture or subluxation. 3. Small right pleural effusion is only partially profiled. 4. Nonspecific abdominal and pelvic lymphadenopathy partially profiled. It is unclear if this is reactive or related to malignant/metastatic disease. This can be further assessed by CT abdomen pelvis if clinically indicated. Electronically signed by: Nathaniel Stoner MD (01/10/2020 4:12 PM) [facility]
--- NOTE | 2020-01-10 16:16 | RAD ---
HIP BILATERAL WITH PELVIS History: Reason: bilateral hip pain after fall yesterady, unable to ambulate / Spl. Instructions: / History: Technique: AP view the pelvis and 2 additional views of bilateral hips. Comparison: CT August 25, 2018 Findings: Normal alignment of the hips. No fracture. Vascular calcifications. Impression: 1. No acute osseous abnormality. Electronically signed by: Ronnie Villalobos DO (01/10/2020 4:13 PM) [facility]
--- NOTE | 2020-01-10 17:00 | PHYS DOC ---
Past Medical History Past Medical History: DVT, Hypertension, Renal Disease Additional Past Medical Histor: neuropathy, PE (JESSY HUBBARD APRN) Past Surgical History: Other Additional Past Surgical Histo: colon resection (JESSY HUBBARD APRN) Smoking Status: Former Smoker Alcohol Use: Rarely Drug Use: None (JESSY HUBBARD APRN) General Adult EDM: Chief Complaint: LOWER EXT PAIN HPI: HPI: Patient is a 64 year old male, brought to the emergency department by his today with complaints of inability to stand due to intolerable pain. Patient reports that he had fallen yesterday and was seen here for left leg pain. Patient states that he has pain in his low back and both of his hips that deve loped today. He was able to get himself into his vehicle and drive to his 's place of business but patient reports that he is unable to move his legs right now because the pain is so severe. He reports a history of DVTs, high blood pressure, neuropathy, pulmonary embolus, and renal disease. Patient states that he does dialysis on Mondays, Wednesdays, and Fridays. He still produces urine but only a small amount states that he already urinated today. Patient denies any fever, cough, shortness of breath, wheezing, abdominal pain, nausea, vomiting, or diarrhea. Patient states he did not go to dialysis yesterday due to his fall. He currently rates his pain a 9 out of 10 on the pain scale, he denies any alleviating factors pain is worse with movement and palpation. (JESSY HUBBARD APRN) Review of Systems: Review of Systems: Constitutional: Denies fever or chills. [] Eyes: Denies change in visual acuity. [] HENT: Denies nasal congestion or sore throat. [] Respiratory: Denies cough or shortness of breath. [] Cardiovascular: Denies chest pain or edema. [] GI: Denies abdominal pain, nausea, vomiting, bloody stools or diarrhea. [] : Denies dysuria. [] Musculoskeletal: Denies back pain or joint pain. [] Integument: Denies rash. [] Neurologic: Denies headache, focal weakness or sensory changes. [] Endocrine: Denies polyuria or polydipsia. [] Lymphatic: Denies swollen glands. [] Psychiatric: Denies depression or anxiety. [] (JESSY HUBBARD APRN) Heart Score: Risk Factors: Risk Factors: DM, Current or recent (<one month) smoker, HTN, HLP, family history of CAD, obesity. Risk Scores: Score 0 - 3: 2.5% MACE over next 6 weeks - Discharge Home Score 4 - 6: 20.3% MACE over next 6 weeks - Admit for Clinical Observation Score 7 - 10: 72.7% MACE over next 6 weeks - Early Invasive Strategies (JESSY HUBBARD APRN) Allergies: Allergies: Allergies Coded Allergies Type Severity Reaction Last Updated Verified No Known Drug Allergies 09/27/19 No (JESSY HUBBARD APRN) Physical Exam: PE: Constitutional: Well developed, well nourished, no acute distress, non-toxic appearance, morbidly obese. [] HENT: Normocephalic, atraumatic, bilateral external ears normal, nose normal. [] Eyes: PERRLA, EOMI, conjunctiva normal, no discharge. [] Neck: Normal range of motion, no stridor. [] Cardiovascular:Heart rate regular rhythm Lungs & Thorax: Respirations even and unlabored, no retractions, no respiratory distress Back: Lumbar bony tenderness to palpation without crepitus or obvious deformity. Abdomen: soft, no tenderness Skin: Warm, dry, no erythema, no rash. [] Extremities: Bilateral lower extremities: No shortening, no obvious deformity, no cyanosis, ROM intact, 1+ edema bilateral Neurologic: Alert and oriented X 3, no focal deficits noted. [] Psychologic: Affect normal, judgement normal, mood normal. [] (JESSY HUBBARD OUTSIDE SALES MANAGER) Current Patient Data: Labs: Laboratory Tests Test 01/10/20 15:00 White Blood Count 8.4 x10^3/uL (4.0-11.0) Red Blood Count 3.26 x10^6/uL (4.30-5.70) L Hemoglobin 10.4 g/dL (13.0-17.5) L Hematocrit 30.4 % (39.0-53.0) L Mean Corpuscular Volume 93 fL (79-100) Mean Corpuscular Hemoglobin 32 pg (25-35) Mean Corpuscular Hemoglobin Concent 34 g/dL (31-37) Red Cell Distribution Width 16.8 % (11.5-14.5) H Platelet Count 214 x10^3/uL (140-400) Neutrophils (%) (Auto) 77 % (31-73) H Lymphocytes (%) (Auto) 13 % (24-48) L Monocytes (%) (Auto) 5 % (0-9) Eosinophils (%) (Auto) 4 % (0-3) H Basophils (%) (Auto) 1 % (0-3) Neutrophils # (Auto) 6.5 x10^3/uL (1.8-7.7) Lymphocytes # (Auto) 1.1 x10^3/uL (1.0-4.8) Monocytes # (Auto) 0.4 x10^3/uL (0.0-1.1) Eosinophils # (Auto) 0.3 x10^3/uL (0.0-0.7) Basophils # (Auto) 0.1 x10^3/uL (0.0-0.2) Sodium Level 123 mmol/L (136-145) L Potassium Level 4.5 mmol/L (3.5-5.1) Chloride Level 87 mmol/L (98-107) L Carbon Dioxide Level 26 mmol/L (21-32) Anion Gap 10 (6-14) Blood Urea Nitrogen 58 mg/dL (8-26) H Creatinine 12.0 mg/dL (0.7-1.3) H Estimated GFR (Cockcroft-Gault) 4.3 BUN/Creatinine Ratio 5 (6-20) L Glucose Level 145 mg/dL (70-99) H Lactic Acid Level 1.4 mmol/L (0.4-2.0) Calcium Level 9.4 mg/dL (8.5-10.1) Total Bilirubin 0.5 mg/dL (0.2-1.0) Aspartate Amino Transferase (AST) 22 U/L (15-37) Alanine Aminotransferase (ALT) 28 U/L (16-63) Alkaline Phosphatase 59 U/L (46-116) Creatine Kinase 57 U/L (39-308) Creatine Kinase MB (Mass) 0.6 ng/mL (0.0-3.6) Creatine Kinase MB Relative Index % (0-4) Total Protein 8.3 g/dL (6.4-8.2) H Albumin 2.9 g/dL (3.4-5.0) L Albumin/Globulin Ratio 0.5 (1.0-1.7) L Laboratory Tests 01/10/20 15:00 Laboratory Tests 01/10/20 15:00 Vital Signs: Vital Signs Date Time Temp Pulse Resp B/P (MAP) Pulse Ox O2 Delivery O2 Flow Rate FiO2 01/10/20 14:48 98.4 87 17 181/98 (125) 93 Room Air 98.4 (JESSY HUBBARD APRN) EKG: EKG: [] (JESSY HUBBARD APRN) Radiology/Procedures: Radiology/Procedures: PROCEDURE: HIP BILATERAL WITH PELVIS HIP BILATERAL WITH PELVIS History: Reason: bilateral hip pain after fall yesterady, unable to ambulate / Spl. Instructions: / History: Technique: AP view the pelvis and 2 additional views of bilateral hips. Comparison: CT August 25, 2018 Findings: Normal alignment of the hips. No fracture. Vascular calcifications. Impression: 1. No acute osseous abnormality. PROCEDURE: CT LUMBAR SPINE WO CONTRAST EXAM: CT lumbar spine without IV contrast CLINICAL HISTORY:Reason: unable to ambulate after fall yesterday / Spl. Instructions: / History: COMPARISON: None available. TECHNIQUE: Helical CT was performed through the lumbar spine. Axial, coronal and sagittal reformatted images were generated. PQRS compliance statement - One or more of the following individualized dose reduction techniques were utilized for this study: 1. Automated exposure control 2. Adjustment of the mA and/or kV according to patient size 3. Use of iterative reconstruction technique FINDINGS: Of note, examination is limited given CT beam attenuation and associated artifact. Vertebral body heights are preserved. No acute fracture. Mild T12-L1, L1-L2 disc height loss. Mild L5-S1 disc height loss. Anterior endplate osteophytes are seen. Straightening of the normal lumbar lordosis. No spondylolisthesis. Schmorl's node at the inferior endplate of L1. Small right pleural effusion. Associated dependent right lower lobe opacities likely atelectasis. Enlarged retroperitoneal and iliac chain lymph nodes are seen. For example a left para-aortic lymph node (series 2 image 28 measures 2.2 x 1.3 cm. Cloth Examiner Hand right external iliac chain lymph node measures 2.3 x 1.2 cm. Kidneys are atrophic. Aortic calcifications are seen. IVC filter is noted. IMPRESSION: 1. Multilevel spondylosis as above 2. Negative acute fracture or subluxation. 3. Small right pleural effusion is only partially profiled. 4. Nonspecific abdominal and pelvic lymphadenopathy partially profiled. It is unclear if this is reactive or related to malignant/metastatic disease. This can be further assessed by CT abdomen pelvis if clinically indicated. Electronically signed by: Nathaniel Stoner MD (01/10/2020 4:12 PM) [facility] [] (JESSY HUBBARD APRN) Course & Med Decision Making: Course & Med Decision Making Pertinent Labs and Imaging studies reviewed. (See chart for details) 1700-spoke with Dr. Foster who is the admitting physician, and care was assumed following discussion of patient. Will admit patient for chronic renal failure, and inability to walk. Patient's vital signs stable. Patient remains afebrile, appears nontoxic, respirations even and unlabored. Patient will be admitted to the med/telemetry floor. Patient's case and plan of care also discussed with Dr. Hwaley [] (JESSY HUBBARD APRN) Course & Med Decision Making I have reviewed the PA/PATCHER WOOD WELDER's note and Plan of Care. I was available for consultation as needed during the patient's visit in the emergency department. I agree with the clinical impression, plans and disposition. (LIVIA HAWLEY MD) Dragon Disclaimer: Dragon Disclaimer: This electronic medical record was generated, in whole or in part, using a voice recognition dictation system. (JESSY HUBBARD APRN) Departure Departure Impression: Primary Impression: Chronic kidney disease, stage IV (severe) Additional Impressions: Inability to ambulate due to multiple joints Hypertension Qualified Codes: I10 - Essential (primary) hypertension Disposition: ADMITTED INPATIENT Admitting Physician: DAMION shaw) (JESSY HUBBARD APRN) Condition: STABLE Referrals: HIGINIO WISE MD (PCP) Justicifation of Admission Dx: Justifications for Admission: Justification of Admission Dx: Yes Chronic Renal Failure: Hypertension Cellulitis: Cellulitis (JESSY HUBBARD APRN) JESSY HUBBARD APRN Jan 10, 2020 17:00 LIVIA HAWLEY MD Jan 11, 2020 12:01
[2020-01-10] MEDS ORDERED: ONDANSETRON PF 4 MG/2 ML VIAL. IV ONE (18:30)
[2020-01-10] MEDS ORDERED: MORPHINE SULFATE 4 MG/ML VIAL. IV ONE (18:30)
[2020-01-10] MEDS ORDERED: METOPROLOL TART IMMED RELEASE 25 MG TABLET. PO SCH (21:00)
[2020-01-10] MEDS ORDERED: amLODIPine BESYLATE 5 MG TABLET PO ONE (21:00)
[2020-01-10] MEDS ORDERED: PSYL0.5215 PO (21:26)
[2020-01-10 21:30] VITALS: BP 148/78
[2020-01-10] MEDS ORDERED: ACETAMINOPHEN 500 MG TABLET PO PRN (22:00)
[2020-01-10] MEDS ORDERED: ONDANSETRON ODT 4 MG TAB.RAPDIS. PO PRN (22:00)
--- NOTE | 2020-01-10 22:00 | NUR ---
The patient, ELENITA SHEPHERD, 64 y/o, M admitted by DAMIAN DURAN III, DO, was given written information regarding hospital policies, unit procedures and contact persons. Valuables were checked and all questions answered. Denies needs currently. Will continue to monitor.
[2020-01-10] MEDS ORDERED: C.DIFF MED SCREEN BY RX. MC ONE (22:30)
[2020-01-10] MEDS ORDERED: ONDANSETRON PF 4 MG/2 ML VIAL. IVP PRN (22:30)
[2020-01-10] MEDS ORDERED: ACETAMINOPHEN 325 MG TABLET. PO PRN (22:30)
[2020-01-10] MEDS ORDERED: HYDROcodone/APAP 5/325MG 1 TAB TABLET PO PRN (22:30)
[2020-01-10] MEDS: DOXYCYCLINE HYCLATE 100 MG TABLET PO SCH (22:53)
[2020-01-10] MEDS: PSYLLIUM HUSK (SUGAR FREE) 1 PKT PACKET PO PRN (22:53)
[2020-01-10] MEDS: TEMAZEPAM 15 MG CAPSULE PO SCH (22:53)
[2020-01-10] MEDS: INSULIN GLARGINE SYRINGE. SQ SCH (22:59)
[2020-01-10 23:00] VITALS: BP 139/65
[2020-01-11 03:00] VITALS: BP 142/78
[2020-01-11 05:46] LABS: PROTHROMBIN TIME PATIENT 50.3 SEC (11.7-14.0)
--- NOTE | 2020-01-11 06:10 | NUR ---
Pt.s inr 5.4. Dr. Foster notified and ordered pharmacy to monitor.
--- NOTE | 2020-01-11 06:19 | NUR ---
Pharmacy Warfarin Dosing Note S:Pharmacy consulted to assist with anticoagulation therapy started with target INR: 2 -3 O:ELENITA SHEPHERD is a 64 year old M with DVT/PE LABS: Last INR: 5.4 Last HGB: 10.4 Last HCT: 30.4 Last PLT: 214 Last dose of 5 mg given on at Previous Regimen: 5 MG DAILY Vitamin K given: N Drug Interaction Changes: Ongoing Drug Interactions: A:INR of 5.4 is above desired range. Target range for this patient is: 2 -3 P: Warfarin dose: Hold Today at 1600 Bridge Therapy: None Next INR due DAILY Pharmacy anticoagulation service will continue to follow. SAMANTHA DALLAS RPH, 01/11/[id number] Signed: 01/11/20 at 618 by SAMANTHA DALLAS RPH PHA
[2020-01-11 07:00] VITALS: BP 160/85
--- NOTE | 2020-01-11 08:00 | PDOC1 ---
History and Physical Date of Admission Date of Admission DATE: 01/11/20 TIME: 07:57 Identification/Chief Complaint Chief Complaint Left lower extremity pain Source Source: Patient History of Present Illness History of Present Illness Patient is a 64-year-old male with past medical history of end-stage renal disease on hemodialysis Thursday/Thursday/Thursday, who presents with worsening left lower extremity pain after a fall 2 days ago. He reports left lower extremity pain, 9/10, worse with movement. Reports associated bilateral hip and lower back pain. He denies received hemodialysis 2 days ago due to his fall. He denies any associated fever, diarrhea, nausea, vomiting. WBC 8.4, Na 123, K 4.5, BUN 58, Cr 12.0, INR 5.4 Past Medical History Cardiovascular: HTN, Hyperlipidemia Pulmonary: COPD, Other GI: Other Renal/: Chronic renal insuff Endocrine: Diabetes Past Surgical History Past Surgical History: Colectomy, Colon Resection, Other (IVC filter placement) Family History Family History: Cancer, Diabetes, Hypertension Social History Smoke: No ALCOHOL: none Drugs: None Current Problem List Problem List Problems Medical Problems: (1) Chronic kidney disease, stage IV (severe) Status: Acute (2) Hypertension Status: Acute (3) Inability to ambulate due to multiple joints Status: Acute Current Medications Current Medications Current Medications Morphine Sulfate (Morphine Sulfate) 4 mg 1X ONCE IV Last administered on 01/10/20at 18:47; Start 01/10/20 at 18:30; Stop 01/10/20 at 18:31; Status DC Ondansetron HCl (Zofran) 4 mg 1X ONCE IV Last administered on 01/10/20at 18:47; Start 01/10/20 at 18:30; Stop 01/10/20 at 18:31; Status DC Metoprolol Tartrate (Lopressor) 25 mg BID PO Last administered on 01/10/20at 21:14; Start 01/10/20 at 21:00; Stop 01/10/20 at 22:23; Status DC Amlodipine Besylate (Norvasc) 10 mg DAILY PO ; Start 01/11/20 at 09:00; Stop 01/10/20 at 22:23; Status DC Amlodipine Besylate (Norvasc) 10 mg 1X ONCE PO Last administered on 01/10/20at 21:15; Start 01/10/20 at 21:00; Stop 01/10/20 at 21:01; Status DC Pharmacy Consult (C.diff Med Screen By Rx) 1 each 1X ONCE MC ; Start 01/10/20 at 22:30; Stop 01/10/20 at 22:31; Status DC Acetaminophen (Tylenol) 500 mg PRN BID PRN PO MILD PAIN 1-3; Start 01/10/20 at 22:00 Doxycycline Hyclate (Vibra-Tab) 100 mg BID PO Last administered on 01/10/20at 22:53; Start 01/10/20 at 23:00; Stop 01/11/20 at 22:59 Vitamin B Complex/ Vitamin C (Cassie-Nyla) 1 tab DAILY PO ; Start 01/11/20 at 09:00 Insulin Human Lispro (HumaLOG) 60 units DAILYWSUP SQ ; Start 01/11/20 at 17:00 Losartan Potassium (Cozaar) 25 mg DAILY PO ; Start 01/11/20 at 09:00 Ondansetron HCl (Zofran Odt) 4 mg PRN BID PRN PO NAUSEA/VOMITING 1ST CHOICE; Start 01/10/20 at 22:00 Temazepam (Restoril) 15 mg QHS PO Last administered on 01/10/20at 22:53; Start 01/11/20 at 00:00 Warfarin Sodium (Coumadin) 5 mg DAILY PO ; Start 01/11/20 at 09:00; Status UNV Insulin Glargine (Lantus Syringe) 35 unit BID SQ Last administered on 01/10/20at 22:59; Start 01/10/20 at 23:00 Insulin Human Lispro (HumaLOG) 50 units BIDACBL SQ ; Start 01/11/20 at 07:30 Psyllium Hydrophilic Mucilloid (Metamucil Fiber Packet) 1 pkt PRN QHS PRN PO CONSTIPATION Last administered on 01/10/20at 22:53; Start 01/10/20 at 09:00 Verapamil HCl (Calan) 160 mg BID PO ; Start 01/11/20 at 09:00 Ondansetron HCl (Zofran) 4 mg PRN Q6HRS PRN IVP NAUSEA/VOMITING 1ST CHOICE; Start 01/10/20 at 22:30 Acetaminophen (Tylenol) 650 mg PRN Q6HRS PRN PO MILD PAIN / TEMP > 100.3'F; Start 01/10/20 at 22:30 Acetaminophen/ Hydrocodone Bitart (Lortab 5/325) 1 tab PRN Q4HRS PRN PO MODERATE PAIN 4-6; Start 01/10/20 at 22:30 Warfarin Sodium (Coumadin Per Pharmacy) 1 each PRN DAILY PRN MC SEE COMMENTS Last administered on 01/11/20at 06:18; Start 01/11/20 at 06:15 Warfarin Sodium (Coumadin - No Dose Today) 1 each 1X WARF ONCE MC ; Start 01/11/20 at 16:00; Stop 01/11/20 at 16:01 Active Scripts Active Doxycycline Hyclate 100 Mg Tablet 100 Mg PO BID 10 Days Zofran Odt (Ondansetron) 4 Mg Tab.rapdis 4 Mg PO BID PRN Reported Metamucil (Psyllium Husk) 0.52 Gm Capsule 1 Cap PO HS PRN 30 Days Temazepam 15 Mg Capsule 1 Cap PO QHS Losartan Potassium 50 Mg Tablet 25 Mg PO DAILY Verapamil Hcl 80 Mg Tablet 2 Tab PO BID Humalog (Insulin Lispro) 100 Unit/1 Ml Vial 60 Unit SQ DAILYWSUP Lantus Solostar (Insulin Glargine,Hum.rec.anlog) 100 Unit/1 Ml Insuln.pen 35 Unit SQ BIDAC PRN Acetaminophen 500 Mg Tablet 1 Tab PO BID PRN Renal Vitamin Tablet (Folic Acid/Vit Bcomp,C) 0.8 Mg Tablet 0.8 Mg PO DAILY Humalog (Insulin Lispro) 100 Unit/1 Ml Insuln.pen 50 Unit SQ BIDACBL Warfarin Sodium 5 Mg Tablet 5 Mg PO DAILY Allergies Allergies: Coded Allergies: No Known Drug Allergies (Unverified , 09/27/19) ROS Review of System GENERAL: No history of weight change, weakness or fevers. SKIN: No bruising, hair changes or rashes. EYES: No blurred, double or loss of vision. NOSE AND THROAT: No history of nosebleeds, hoarseness or sore throat. HEART: Denies chest pain, denies palpitations. LUNGS: Denies cough, hemoptysis, wheezing or shortness of breath. GASTROINTESTINAL: Denies nausea, vomiting, abdominal pain. GENITOURINARY: Denies dysuria, frequency, urgency, hematuria. NEUROLOGIC: Denies history of numbness, tingling, tremor or weakness. PSYCHIATRIC: Denies anxiety, denies depression. ENDOCRINE: No history of heat or cold intolerance, polyuria or polydipsia. EXTREMITIES: Left lower extremity pain Physical Exam Physical Exam General: Alert, Oriented X3, Cooperative HEENT: PERRLA, EOMI Lungs: Clear to auscultation, Normal air movement Heart: RRR, no murmurs Cardiovascular: S1, S2 Abdomen: Normal bowel sounds, Soft, No tenderness Extremities: No clubbing, No cyanosis Skin: Left lower extremity wound, right heel wound Neuro: Normal speech, Normal tone, Sensation intact Psych/Mental Status: Mental status NL, Mood NL Vitals Vitals Vital Signs Date Time Temp Pulse Resp B/P (MAP) Pulse Ox O2 Delivery O2 Flow Rate FiO2 01/11/20 07:00 98.0 73 18 160/85 (110) 94 98.0 01/11/20 03:00 Nasal Cannula 2.0 Labs Labs Laboratory Tests Test 01/10/20 15:00 01/10/20 21:40 01/11/20 05:00 01/11/20 07:40 White Blood Count 8.4 x10^3/uL (4.0-11.0) Red Blood Count 3.26 x10^6/uL (4.30-5.70) Hemoglobin 10.4 g/dL (13.0-17.5) Hematocrit 30.4 % (39.0-53.0) Mean Corpuscular Volume 93 fL (79-100) Mean Corpuscular Hemoglobin 32 pg (25-35) Mean Corpuscular Hemoglobin Concent 34 g/dL (31-37) Red Cell Distribution Width 16.8 % (11.5-14.5) Platelet Count 214 x10^3/uL (140-400) Neutrophils (%) (Auto) 77 % (31-73) Lymphocytes (%) (Auto) 13 % (24-48) Monocytes (%) (Auto) 5 % (0-9) Eosinophils (%) (Auto) 4 % (0-3) Basophils (%) (Auto) 1 % (0-3) Neutrophils # (Auto) 6.5 x10^3/uL (1.8-7.7) Lymphocytes # (Auto) 1.1 x10^3/uL (1.0-4.8) Monocytes # (Auto) 0.4 x10^3/uL (0.0-1.1) Eosinophils # (Auto) 0.3 x10^3/uL (0.0-0.7) Basophils # (Auto) 0.1 x10^3/uL (0.0-0.2) Sodium Level 123 mmol/L (136-145) Potassium Level 4.5 mmol/L (3.5-5.1) Chloride Level 87 mmol/L (98-107) Carbon Dioxide Level 26 mmol/L (21-32) Anion Gap 10 (6-14) Blood Urea Nitrogen 58 mg/dL (8-26) Creatinine 12.0 mg/dL (0.7-1.3) Estimated GFR (Cockcroft-Gault) 4.3 BUN/Creatinine Ratio 5 (6-20) Glucose Level 145 mg/dL (70-99) Lactic Acid Level 1.4 mmol/L (0.4-2.0) Calcium Level 9.4 mg/dL (8.5-10.1) Total Bilirubin 0.5 mg/dL (0.2-1.0) Aspartate Amino Transf (AST/SGOT) 22 U/L (15-37) Alanine Aminotransferase (ALT/SGPT) 28 U/L (16-63) Alkaline Phosphatase 59 U/L (46-116) Creatine Kinase 57 U/L (39-308) Creatine Kinase MB (Mass) 0.6 ng/mL (0.0-3.6) Creatine Kinase MB Relative Index % (0-4) Total Protein 8.3 g/dL (6.4-8.2) Albumin 2.9 g/dL (3.4-5.0) Albumin/Globulin Ratio 0.5 (1.0-1.7) Glucose (Fingerstick) 142 mg/dL (70-99) 133 mg/dL (70-99) Prothrombin Time 50.3 SEC (11.7-14.0) Prothromb Time International Ratio 5.4 (0.8-1.1) Laboratory Tests Test 01/10/20 15:00 01/10/20 21:40 01/11/20 05:00 01/11/20 07:40 White Blood Count 8.4 x10^3/uL (4.0-11.0) Red Blood Count 3.26 x10^6/uL (4.30-5.70) Hemoglobin 10.4 g/dL (13.0-17.5) Hematocrit 30.4 % (39.0-53.0) Mean Corpuscular Volume 93 fL (79-100) Mean Corpuscular Hemoglobin 32 pg (25-35) Mean Corpuscular Hemoglobin Concent 34 g/dL (31-37) Red Cell Distribution Width 16.8 % (11.5-14.5) Platelet Count 214 x10^3/uL (140-400) Neutrophils (%) (Auto) 77 % (31-73) Lymphocytes (%) (Auto) 13 % (24-48) Monocytes (%) (Auto) 5 % (0-9) Eosinophils (%) (Auto) 4 % (0-3) Basophils (%) (Auto) 1 % (0-3) Neutrophils # (Auto) 6.5 x10^3/uL (1.8-7.7) Lymphocytes # (Auto) 1.1 x10^3/uL (1.0-4.8) Monocytes # (Auto) 0.4 x10^3/uL (0.0-1.1) Eosinophils # (Auto) 0.3 x10^3/uL (0.0-0.7) Basophils # (Auto) 0.1 x10^3/uL (0.0-0.2) Sodium Level 123 mmol/L (136-145) Potassium Level 4.5 mmol/L (3.5-5.1) Chloride Level 87 mmol/L (98-107) Carbon Dioxide Level 26 mmol/L (21-32) Anion Gap 10 (6-14) Blood Urea Nitrogen 58 mg/dL (8-26) Creatinine 12.0 mg/dL (0.7-1.3) Estimated GFR (Cockcroft-Gault) 4.3 BUN/Creatinine Ratio 5 (6-20) Glucose Level 145 mg/dL (70-99) Lactic Acid Level 1.4 mmol/L (0.4-2.0) Calcium Level 9.4 mg/dL (8.5-10.1) Total Bilirubin 0.5 mg/dL (0.2-1.0) Aspartate Amino Transf (AST/SGOT) 22 U/L (15-37) Alanine Aminotransferase (ALT/SGPT) 28 U/L (16-63) Alkaline Phosphatase 59 U/L (46-116) Creatine Kinase 57 U/L (39-308) Creatine Kinase MB (Mass) 0.6 ng/mL (0.0-3.6) Creatine Kinase MB Relative Index % (0-4) Total Protein 8.3 g/dL (6.4-8.2) Albumin 2.9 g/dL (3.4-5.0) Albumin/Globulin Ratio 0.5 (1.0-1.7) Glucose (Fingerstick) 142 mg/dL (70-99) 133 mg/dL (70-99) Prothrombin Time 50.3 SEC (11.7-14.0) Prothromb Time International Ratio 5.4 (0.8-1.1) Images Images HIP BILATERAL WITH PELVIS History: Reason: bilateral hip pain after fall yesterady, unable to ambulate / Spl. Instructions: / History: Technique: AP view the pelvis and 2 additional views of bilateral hips. Comparison: CT August 25, 2018 Findings: Normal alignment of the hips. No fracture. Vascular calcifications. Impression: 1. No acute osseous abnormality. EXAM: CT lumbar spine without IV contrast CLINICAL HISTORY:Reason: unable to ambulate after fall yesterday / Spl. Instructions: / History: COMPARISON: None available. TECHNIQUE: Helical CT was performed through the lumbar spine. Axial, coronal and sagittal reformatted images were generated. PQRS compliance statement - One or more of the following individualized dose reduction techniques were utilized for this study: 1. Automated exposure control 2. Adjustment of the mA and/or kV according to patient size 3. Use of iterative reconstruction technique FINDINGS: Of note, examination is limited given CT beam attenuation and associated artifact. Vertebral body heights are preserved. No acute fracture. Mild T12-L1, L1-L2 disc height loss. Mild L5-S1 disc height loss. Anterior endplate osteophytes are seen. Straightening of the normal lumbar lordosis. No spondylolisthesis. Schmorl's node at the inferior endplate of L1. Small right pleural effusion. Associated dependent right lower lobe opacities likely atelectasis. Enlarged retroperitoneal and iliac chain lymph nodes are seen. For example a left para-aortic lymph node (series 2 image 28 measures 2.2 x 1.3 cm. [employer] right external iliac chain lymph node measures 2.3 x 1.2 cm. Kidneys are atrophic. Aortic calcifications are seen. IVC filter is noted. IMPRESSION: 1. Multilevel spondylosis as above 2. Negative acute fracture or subluxation. 3. Small right pleural effusion is only partially profiled. 4. Nonspecific abdominal and pelvic lymphadenopathy partially profiled. It is unclear if this is reactive or related to malignant/metastatic disease. This can be further assessed by CT abdomen pelvis if clinically indicated. VTE Prophylaxis Ordered VTE Prophylaxis Devices: No VTE Pharmacological Prophylaxi: Yes Assessment/Plan Assessment/Plan Intractable pain End-stage renal disease on hemodialysis Hyponatremia Malnutrition Physical debility Supratherapeutic INR Plan: Consult nephrology Consult wound care Sliding-scale insulin, goal blood sugar [id number] Fluid restriction PT/OT Daily INR check. We will hold warfarin and resume when INR is 2-3 VTE prophylaxiswarfarin Full code, patient has not named a surrogate decision-maker Justifications for Admission Other Justification DENISE LOPEZ MD Jan 11, 2020 08:00
[2020-01-11] MEDS: FOLIC/VIT B COMP W-C (RENAL) TABLET. PO SCH (08:20)
[2020-01-11] MEDS: VERAPAMIL 40 MG TABLET. PO SCH ×2 (08:21→21:01)
[2020-01-11] MEDS: DOXYCYCLINE HYCLATE 100 MG TABLET PO SCH ×2 (08:21→21:00)
[2020-01-11] MEDS: LOSARTAN POTASSIUM 25 MG TABLET. PO SCH (08:21)
[2020-01-11] MEDS: INSULIN LISPRO 300 UNITS/3 ML VIAL. SQ SCH ×3 (08:24→17:54)
[2020-01-11] MEDS ORDERED: WARFARIN 5 MG TABLET. PO SCH (09:00)
[2020-01-11] MEDS ORDERED: amLODIPine BESYLATE 10 MG TABLET PO SCH (09:00)
[2020-01-11] MEDS: INSULIN GLARGINE SYRINGE. SQ SCH ×2 (09:22→21:04)
--- NOTE | 2020-01-11 10:00 | NUR ---
Wound/Ostomy Care Wound Type/Assessment: Patient seen per wound care consult. See wound assessment. patient is well known to us from the wound clinic. Patient has DFU to right heel and bilateral lower leg stasis/open blisters that are draining. Patient continues to have ongoing issues with bilateral lower leg wounds as he refuses to elevate or wear compression. The wounds are all cleansed, assessed, measured, and photographed. The right heel is improved. Treatment Recommendations/Plan: Recommendations to continue with Hydrofera Blue (left in room) to the right heel, cover with ABD pad and kerlix. Change every other day. Recommendations for contact layer (left in room) to bilateral lower leg wounds, cover with ABD pads, and kerlix. change every other day. Education provided: Patient educated on dressing changes. Patient educated on elevation and compression, but continues to refuse. Offloading surface/device: N/A Recommended Referrals/Tests: N/A Discharge Recommendations for dressings: Continue with current treatment plan. Dressing change instructions left in room as well as extra dressings. Patient in chair at this time. Unable to reassess patient's backside as he states he is unable to get up at this time as his legs are "hurting" Will follow patient regarding wound care.
[2020-01-11 11:00] VITALS: BP 98/45
[2020-01-11] MEDS ORDERED: HYDROcodone/APAP 5/325MG 1 TAB TABLET PO PRN ×2 (12:45)
[2020-01-11] MEDS: DOCUSATE SODIUM 100 MG CAPSULE. PO SCH ×2 (13:00→21:00)
--- NOTE | 2020-01-11 13:43 | PDOC ---
Renal-Progress Notes Subjective Notes Notes NONE History of Present Illness Hx of present illness ADMIT WITH LE PAIN AND ELECTROLYTE PROBLEMS Vitals Vitals Vital Signs Date Time Temp Pulse Resp B/P (MAP) Pulse Ox O2 Delivery O2 Flow Rate FiO2 01/11/20 11:00 97.8 61 18 98/45 (62) 97 97.8 01/11/20 08:00 Nasal Cannula 2.0 Weight Weight [ ] I.O. Intake and Output Intake and Output 01/11/20 07:00 Intake Total 280 ml Balance 280 ml Intake Oral 280 ml Labs Labs Laboratory Tests Test 01/10/20 15:00 01/10/20 21:40 01/11/20 05:00 01/11/20 07:40 White Blood Count 8.4 x10^3/uL (4.0-11.0) Red Blood Count 3.26 x10^6/uL (4.30-5.70) Hemoglobin 10.4 g/dL (13.0-17.5) Hematocrit 30.4 % (39.0-53.0) Mean Corpuscular Volume 93 fL (79-100) Mean Corpuscular Hemoglobin 32 pg (25-35) Mean Corpuscular Hemoglobin Concent 34 g/dL (31-37) Red Cell Distribution Width 16.8 % (11.5-14.5) Platelet Count 214 x10^3/uL (140-400) Neutrophils (%) (Auto) 77 % (31-73) Lymphocytes (%) (Auto) 13 % (24-48) Monocytes (%) (Auto) 5 % (0-9) Eosinophils (%) (Auto) 4 % (0-3) Basophils (%) (Auto) 1 % (0-3) Neutrophils # (Auto) 6.5 x10^3/uL (1.8-7.7) Lymphocytes # (Auto) 1.1 x10^3/uL (1.0-4.8) Monocytes # (Auto) 0.4 x10^3/uL (0.0-1.1) Eosinophils # (Auto) 0.3 x10^3/uL (0.0-0.7) Basophils # (Auto) 0.1 x10^3/uL (0.0-0.2) Sodium Level 123 mmol/L (136-145) Potassium Level 4.5 mmol/L (3.5-5.1) Chloride Level 87 mmol/L (98-107) Carbon Dioxide Level 26 mmol/L (21-32) Anion Gap 10 (6-14) Blood Urea Nitrogen 58 mg/dL (8-26) Creatinine 12.0 mg/dL (0.7-1.3) Estimated GFR (Cockcroft-Gault) 4.3 BUN/Creatinine Ratio 5 (6-20) Glucose Level 145 mg/dL (70-99) Lactic Acid Level 1.4 mmol/L (0.4-2.0) Calcium Level 9.4 mg/dL (8.5-10.1) Total Bilirubin 0.5 mg/dL (0.2-1.0) Aspartate Amino Transf (AST/SGOT) 22 U/L (15-37) Alanine Aminotransferase (ALT/SGPT) 28 U/L (16-63) Alkaline Phosphatase 59 U/L (46-116) Creatine Kinase 57 U/L (39-308) Creatine Kinase MB (Mass) 0.6 ng/mL (0.0-3.6) Creatine Kinase MB Relative Index % (0-4) Total Protein 8.3 g/dL (6.4-8.2) Albumin 2.9 g/dL (3.4-5.0) Albumin/Globulin Ratio 0.5 (1.0-1.7) Glucose (Fingerstick) 142 mg/dL (70-99) 133 mg/dL (70-99) Prothrombin Time 50.3 SEC (11.7-14.0) Prothromb Time International Ratio 5.4 (0.8-1.1) Test 01/11/20 11:47 Glucose (Fingerstick) 88 mg/dL (70-99) Review of Systems Constitutional: yes: alert, oriented, other (UNABLE TO FULLY OBTAIN) Physical Exam General Appearance: other (UNABLE TO DO HE WILL NOT ALLOW ME TO DO IT) Assessment Assessment IMP HYPONATREMIA HYPERVOLEMIA ESRD ANEMIA DM II HTN INTRACTABLE LE PAIN PLAN HD TODAY UF ABOUT 5.0 LITERS CHECK NA IN AM ALIZE NEEDED GALEN BOTELLO MD Jan 11, 2020 13:43
--- NOTE | 2020-01-11 15:37 | NUR ---
SW following. Reviewed chart and spoke with RN. SW consulted for frequent hospitalizations. Pt from home with . Pt on 2l 02, renal diet. Pt does dialysis on MWF at [facility], , (fax). SW attempted to call into pt's room but there was no answer. EITAN LVM for Gloria ([phone]) to coordinate care. EITAN worked with this patient on last admission, 12/29 and pt refused HH at discharge. Pt was admitted on 12/15 and refused follow up care at discharge at that time as well. PT/OT has been consulted. SW awaiting recommendations from therapy. Pt discharged on room air at last admission and will possibly need a 6 min walk to determine if 02 is needed at discharge. SW following.
[2020-01-11] MEDS ORDERED: DIALYSIS PATIENT. MC PRN ×2 (16:15)
--- NOTE | 2020-01-11 17:16 | NUR ---
Pharmacy Medication Review S: Consulted for medication review re: C.diff Risk Assessment score of 4 O: ELENITA SHEPHERD is a 64 year old with: Previous C.diff infection: No Previous hospitalization: Within 30 days Recent antibiotics: Within 30 days Use of gastric acid suppressor: No Transfer from [place]/LTAC: No Current antibiotic regimen: NONE Current acid suppression regimen: NONE A: Patient has been identified as having risk factors for C.diff infection as noted above. P: Antibiotic Regimen recommendation made: N/A Probiotic ordered: N/A PPI changed to [id number]: N/A MAXIME MOREIRA [facility], 01/11/20 [id number]
[2020-01-11 19:20] VITALS: BP 164/60
[2020-01-11] MEDS: TEMAZEPAM 15 MG CAPSULE PO SCH (21:00)
[2020-01-11] MEDS: PSYLLIUM HUSK (SUGAR FREE) 1 PKT PACKET PO PRN (21:00)
[2020-01-11 22:58] VITALS: BP 118/46
[2020-01-12 03:22] VITALS: BP 138/65
[2020-01-12] MEDS ORDERED: DEXTROSE 50% 25 GM / 50ML DISP.SYRIN. IV ONE (03:30)
[2020-01-12] MEDS ORDERED: DEXTROSE 50% 25 GM / 50ML DISP.SYRIN. IV PRN (04:15)
[2020-01-12 06:19] LABS: PROTHROMBIN TIME PATIENT 36.2 SEC (11.7-14.0)
[2020-01-12 07:00] VITALS: BP 161/73
--- NOTE | 2020-01-12 07:12 | NUR ---
IP: Pt's hs of mrsa was in 2013 and . Pt may be removed from contact precautions.
[2020-01-12] MEDS: INSULIN LISPRO 300 UNITS/3 ML VIAL. SQ SCH ×3 (07:30→17:00)
--- NOTE | 2020-01-12 09:50 | NUR ---
Pharmacy Warfarin Dosing Note S:Pharmacy consulted to assist with anticoagulation therapy started with target INR: 2 -3 O:ELENITA SHEPHERD is a 64 year old M with DVT/PE LABS: Last INR: 3.6 Last HGB: 10.4 Last HCT: 30.4 Last PLT: 214 Last dose was held Previous Regimen: 5 MG DAILY Vitamin K given: N A:INR of 3.6 is above desired range. Target range for this patient is: 2 -3 P: Warfarin dose: Hold Today Bridge Therapy: None Next INR due 01/13/20 Pharmacy anticoagulation service will continue to follow. ETELVINA YEPEZ RPH, 01/12/20 [id number]
[2020-01-12] MEDS: FOLIC/VIT B COMP W-C (RENAL) TABLET. PO SCH (10:04)
[2020-01-12] MEDS: LOSARTAN POTASSIUM 25 MG TABLET. PO SCH (10:04)
[2020-01-12] MEDS: DOCUSATE SODIUM 100 MG CAPSULE. PO SCH ×2 (10:05→21:00)
[2020-01-12] MEDS: VERAPAMIL 40 MG TABLET. PO SCH ×2 (10:05→21:46)
[2020-01-12 10:09] LABS: BASO % 0 % (0-3); EOS # 0.1 x10^3/uL (0.0-0.7); EOS % 1 % (0-3); HEMATOCRIT 31.5 % (39.0-53.0); HEMOGLOBIN 10.7 g/dL (13.0-17.5); LYMPH # 0.5 x10^3/uL (1.0-4.8); LYMPH % 6 % (24-48); MEAN CORPUSCULAR HEMOGLOBIN 32 pg (25-35); MEAN CORPUSCULAR HGB CONC 34 g/dL (31-37); MEAN CORPUSCULAR VOLUME 95 fL (79-100); MONO # 0.5 x10^3/uL (0.0-1.1); MONO % 6 % (0-9); NEUT # 7.4 x10^3/uL (1.8-7.7); NEUT % 87 % (31-73); PLATELET COUNT 190 x10^3/uL (140-400); RED BLOOD COUNT 3.33 x10^6/uL (4.30-5.70); RED CELL DISTRIBUTION WIDTH 16.7 % (11.5-14.5); WHITE BLOOD COUNT 8.5 x10^3/uL (4.0-11.0)
[2020-01-12] MEDS: INSULIN GLARGINE SYRINGE. SQ SCH ×2 (10:11→21:53)
[2020-01-12 10:25] LABS: CALCIUM 8.5 mg/dL (8.5-10.1); CREATININE 8.9 mg/dL (0.7-1.3)
[2020-01-12 11:00] VITALS: BP 165/71
--- NOTE | 2020-01-12 12:34 | PDOC ---
Renal-Progress Notes Subjective Notes Notes NONE History of Present Illness Hx of present illness NO CHANGE Vitals Vitals Vital Signs Date Time Temp Pulse Resp B/P (MAP) Pulse Ox O2 Delivery O2 Flow Rate FiO2 01/12/20 12:22 Room Air 01/12/20 11:00 98.6 74 18 165/71 (102) 99 2.0 98.6 Weight Weight [ ] I.O. Intake and Output Intake and Output 01/12/20 07:00 Intake Total 440 ml Output Total 0 ml Balance 440 ml Intake Oral 440 ml Output Urine Total 0 ml # Voids 2 # Bowel Movements 1 Labs Labs Laboratory Tests Test 01/11/20 16:58 01/11/20 17:26 01/11/20 20:25 01/12/20 03:17 Glucose (Fingerstick) 51 mg/dL (70-99) 88 mg/dL (70-99) 67 mg/dL (70-99) 37 mg/dL (70-99) Test 01/12/20 03:40 01/12/20 04:20 01/12/20 07:42 01/12/20 08:39 Glucose (Fingerstick) 94 mg/dL (70-99) 40 mg/dL (70-99) 151 mg/dL (70-99) Prothrombin Time 36.2 SEC (11.7-14.0) Prothromb Time International Ratio 3.6 (0.8-1.1) Test 01/12/20 09:55 01/12/20 11:52 White Blood Count 8.5 x10^3/uL (4.0-11.0) Red Blood Count 3.33 x10^6/uL (4.30-5.70) Hemoglobin 10.7 g/dL (13.0-17.5) Hematocrit 31.5 % (39.0-53.0) Mean Corpuscular Volume 95 fL (79-100) Mean Corpuscular Hemoglobin 32 pg (25-35) Mean Corpuscular Hemoglobin Concent 34 g/dL (31-37) Red Cell Distribution Width 16.7 % (11.5-14.5) Platelet Count 190 x10^3/uL (140-400) Neutrophils (%) (Auto) 87 % (31-73) Lymphocytes (%) (Auto) 6 % (24-48) Monocytes (%) (Auto) 6 % (0-9) Eosinophils (%) (Auto) 1 % (0-3) Basophils (%) (Auto) 0 % (0-3) Neutrophils # (Auto) 7.4 x10^3/uL (1.8-7.7) Lymphocytes # (Auto) 0.5 x10^3/uL (1.0-4.8) Monocytes # (Auto) 0.5 x10^3/uL (0.0-1.1) Eosinophils # (Auto) 0.1 x10^3/uL (0.0-0.7) Basophils # (Auto) 0.0 x10^3/uL (0.0-0.2) Sodium Level 125 mmol/L (136-145) Potassium Level 5.0 mmol/L (3.5-5.1) Chloride Level 88 mmol/L (98-107) Carbon Dioxide Level 29 mmol/L (21-32) Anion Gap 8 (6-14) Blood Urea Nitrogen 42 mg/dL (8-26) Creatinine 8.9 mg/dL (0.7-1.3) Estimated GFR (Cockcroft-Gault) 6.0 Glucose Level 167 mg/dL (70-99) Calcium Level 8.5 mg/dL (8.5-10.1) Glucose (Fingerstick) 125 mg/dL (70-99) Review of Systems Constitutional: yes: alert, oriented, other (UNABLE TO FULLY OBTAIN) Physical Exam General Appearance: other (UNABLE TO DO HE WILL NOT ALLOW ME TO DO IT) Assessment Assessment IMP HYPONATREMIA-IMPROVING HYPERVOLEMIA-BETTER ESRD ANEMIA DM II HTN INTRACTABLE LE PAIN PLAN HD TOMORROW WILL NEED EXTRA UF ALIZE NEEDED GALEN BOTELLO MD Jan 12, 2020 12:34
[2020-01-12 13:00] LABS: % BANDS 2 % (0-9); % LYMPHS 6 % (24-48); % MONOS 6 % (0-10); % SEGS 86 % (35-66); PLT ESTIMATE ADEQUATE (ADEQUATE)
[2020-01-12 15:00] VITALS: BP 148/56
--- NOTE | 2020-01-12 15:22 | PDOC ---
[employer] PROGRESS NOTE Date of Service DOS: DATE: 01/12/20 TIME: 15:18 Chief Complaint Chief Complaint Lower extremity pain History of Present Illness History of Present Illness Patient reports nontraumatic acute onset of left lower extremity pain as he was exiting his vehicle. Pain is nonradiating, aggravated by movement. Suspect musculoskeletal in etiology. Will try baclofen 10 mg 3 times daily. Discussed with patient to be cautious with this medication as it can make him drowsy. Hemodialysis tomorrow. Vitals/I&O Vitals/I&O: Vital Signs Date Time Temp Pulse Resp B/P (MAP) Pulse Ox O2 Delivery O2 Flow Rate FiO2 01/12/20 15:00 98.4 148/56 (86) 95 Nasal Cannula 2.0 98.4 01/12/20 11:00 74 18 I & O 01/11/20 01/11/20 01/12/20 15:00 23:00 07:00 Intake Total 120 ml 120 ml 200 ml Output Total 0 ml Balance 120 ml 120 ml 200 ml Physical Exam General: Alert Heart: Regular rate Lungs: Clear, Crackles Abdomen: Other (Obese) Extremities: No clubbing, No cyanosis Skin: No rashes Labs Labs: Laboratory Tests Test 01/11/20 16:58 01/11/20 17:26 01/11/20 20:25 01/12/20 03:17 Glucose (Fingerstick) 51 mg/dL (70-99) 88 mg/dL (70-99) 67 mg/dL (70-99) 37 mg/dL (70-99) Test 01/12/20 03:40 01/12/20 04:20 01/12/20 07:42 01/12/20 08:39 Glucose (Fingerstick) 94 mg/dL (70-99) 40 mg/dL (70-99) 151 mg/dL (70-99) Prothrombin Time 36.2 SEC (11.7-14.0) Prothromb Time International Ratio 3.6 (0.8-1.1) Test 01/12/20 09:55 01/12/20 11:52 White Blood Count 8.5 x10^3/uL (4.0-11.0) Red Blood Count 3.33 x10^6/uL (4.30-5.70) Hemoglobin 10.7 g/dL (13.0-17.5) Hematocrit 31.5 % (39.0-53.0) Mean Corpuscular Volume 95 fL (79-100) Mean Corpuscular Hemoglobin 32 pg (25-35) Mean Corpuscular Hemoglobin Concent 34 g/dL (31-37) Red Cell Distribution Width 16.7 % (11.5-14.5) Platelet Count 190 x10^3/uL (140-400) Neutrophils (%) (Auto) 87 % (31-73) Lymphocytes (%) (Auto) 6 % (24-48) Monocytes (%) (Auto) 6 % (0-9) Eosinophils (%) (Auto) 1 % (0-3) Basophils (%) (Auto) 0 % (0-3) Neutrophils # (Auto) 7.4 x10^3/uL (1.8-7.7) Lymphocytes # (Auto) 0.5 x10^3/uL (1.0-4.8) Monocytes # (Auto) 0.5 x10^3/uL (0.0-1.1) Eosinophils # (Auto) 0.1 x10^3/uL (0.0-0.7) Basophils # (Auto) 0.0 x10^3/uL (0.0-0.2) Segmented Neutrophils % 86 % (35-66) Band Neutrophils % 2 % (0-9) Lymphocytes % 6 % (24-48) Monocytes % 6 % (0-10) Platelet Estimate Adequate (ADEQUATE) Sodium Level 125 mmol/L (136-145) Potassium Level 5.0 mmol/L (3.5-5.1) Chloride Level 88 mmol/L (98-107) Carbon Dioxide Level 29 mmol/L (21-32) Anion Gap 8 (6-14) Blood Urea Nitrogen 42 mg/dL (8-26) Creatinine 8.9 mg/dL (0.7-1.3) Estimated GFR (Cockcroft-Gault) 6.0 Glucose Level 167 mg/dL (70-99) Calcium Level 8.5 mg/dL (8.5-10.1) Glucose (Fingerstick) 125 mg/dL (70-99) Review of Systems Review of Systems: Bilateral thigh extremity pain. Denies fever, denies rash, denies injury. Assessment and Plan Assessmemt and Plan Problems Medical Problems: (1) Chronic kidney disease, stage IV (severe) Status: Acute (2) Hypertension Status: Acute (3) Inability to ambulate due to multiple joints Status: Acute Comment Review of Relevant I have reviewed the following items joyce (where applicable) has been applied. Medications: Current Medications Medications (Trade) Dose Ordered Sig/Cristian Route PRN Reason Start Time Stop Time Status Last Admin Dose Admin Insulin Human Lispro (HumaLOG) 60 units DAILYWSUP SQ 01/11/20 17:00 01/11/20 17:54 Warfarin Sodium (Coumadin - No Dose Today) 1 each 1X WARF ONCE MC 01/11/20 16:00 01/11/20 16:01 DC 01/11/20 16:00 Dextrose (Dextrose 50%-Water Syringe) 25 gm PRN Q10MIN ONCE IV 01/12/20 03:30 01/12/20 03:35 DC 01/12/20 03:32 Dextrose (Dextrose 50%-Water Syringe) 12.5 gm PRN Q15MIN PRN IV SEE COMMENTS 01/12/20 04:15 01/12/20 07:52 Justifications for Admission Other Justification Intractable pain, left lower extremity wound DENISE LOPEZ MD Jan 12, 2020 15:22
--- NOTE | 2020-01-12 16:45 | NUR ---
SW following. Reviewed chart and spoke with RN. Spoke with pt who declined SNU on discharge. Pt stated he drives daily and would not qualify for or want HH on discharge. Pt to resume out-patient dialysis on discharge. 6 min walk needed to determine if 02 is needed on discharge.
[2020-01-12 19:00] VITALS: BP 140/112
[2020-01-12] MEDS: BACLOFEN 10 MG TABLET. PO SCH (21:46)
[2020-01-12] MEDS: TEMAZEPAM 15 MG CAPSULE PO SCH (21:47)
[2020-01-12 23:00] VITALS: BP 136/64
[2020-01-13 03:00] VITALS: BP 131/58
[2020-01-13 05:44] LABS: CREATININE 10.6 mg/dL (0.7-1.3); GFR 4.9; POTASSIUM 4.8 mmol/L (3.5-5.1)
[2020-01-13 05:49] LABS: BASO # 0.1 x10^3/uL (0.0-0.2); BASO % 1 % (0-3); EOS # 0.3 x10^3/uL (0.0-0.7); EOS % 3 % (0-3); HEMATOCRIT 32.4 % (39.0-53.0); HEMOGLOBIN 10.9 g/dL (13.0-17.5); LYMPH # 1.2 x10^3/uL (1.0-4.8); LYMPH % 13 % (24-48); MEAN CORPUSCULAR HEMOGLOBIN 32 pg (25-35); MEAN CORPUSCULAR HGB CONC 34 g/dL (31-37); MEAN CORPUSCULAR VOLUME 94 fL (79-100); MONO # 0.5 x10^3/uL (0.0-1.1); MONO % 5 % (0-9); NEUT % 78 % (31-73); PLATELET COUNT 209 x10^3/uL (140-400); RED BLOOD COUNT 3.44 x10^6/uL (4.30-5.70); RED CELL DISTRIBUTION WIDTH 16.8 % (11.5-14.5); WHITE BLOOD COUNT 8.9 x10^3/uL (4.0-11.0)
[2020-01-13 05:56] LABS: PROTHROMBIN TIME PATIENT 29.4 SEC (11.7-14.0)
[2020-01-13 07:00] VITALS: BP 123/55
[2020-01-13] MEDS: INSULIN LISPRO 300 UNITS/3 ML VIAL. SQ SCH ×2 (07:30→11:30)
[2020-01-13] MEDS: LOSARTAN POTASSIUM 25 MG TABLET. PO SCH (09:00)
[2020-01-13] MEDS: FOLIC/VIT B COMP W-C (RENAL) TABLET. PO SCH (09:00)
[2020-01-13] MEDS: DOCUSATE SODIUM 100 MG CAPSULE. PO SCH (09:00)
[2020-01-13] MEDS: BACLOFEN 10 MG TABLET. PO SCH ×2 (09:00→14:30)
[2020-01-13] MEDS: VERAPAMIL 40 MG TABLET. PO SCH (09:00)
[2020-01-13] MEDS ORDERED: IV NORMAL SALINE 1000ML BAG 1,000 ML IV PRN ×2 (09:58)
[2020-01-13] MEDS ORDERED: ALBUMIN HUMAN 25% 200 ML IV PRN (10:00)
[2020-01-13] MEDS ORDERED: DIALYSIS PATIENT. MC PRN ×2 (10:00)
[2020-01-13] MEDS: INSULIN GLARGINE SYRINGE. SQ SCH (10:30)
--- NOTE | 2020-01-13 10:32 | NUR ---
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 Target range for this patient is: 2 -3 P: Warfarin dose: 5 mg Today at 1600 Bridge Therapy: None Next INR due 01/14/20 Pharmacy anticoagulation service will continue to follow. ETELVINA YEPEZ RPH, 01/13/20 [id number]
--- NOTE | 2020-01-13 12:11 | PDOC ---
Renal-Progress Notes Subjective Notes Notes NO NEW COMPLAINTS History of Present Illness Hx of present illness NO CHANGES Vitals Vitals Vital Signs Date Time Temp Pulse Resp B/P (MAP) Pulse Ox O2 Delivery O2 Flow Rate FiO2 01/13/20 07:50 Room Air 01/13/20 07:00 98.5 64 123/55 (77) 97 2.0 98.5 01/12/20 11:00 18 Weight Weight [ ] I.O. Intake and Output Intake and Output 01/13/20 07:00 Intake Total 640 ml Balance 640 ml Intake Oral 640 ml # Voids 2 # Bowel Movements 1 Labs Labs Laboratory Tests Test 01/12/20 17:07 01/12/20 21:40 01/13/20 04:40 01/13/20 07:37 Glucose (Fingerstick) 97 mg/dL (70-99) 168 mg/dL (70-99) 134 mg/dL (70-99) White Blood Count 8.9 x10^3/uL (4.0-11.0) Red Blood Count 3.44 x10^6/uL (4.30-5.70) Hemoglobin 10.9 g/dL (13.0-17.5) Hematocrit 32.4 % (39.0-53.0) Mean Corpuscular Volume 94 fL (79-100) Mean Corpuscular Hemoglobin 32 pg (25-35) Mean Corpuscular Hemoglobin Concent 34 g/dL (31-37) Red Cell Distribution Width 16.8 % (11.5-14.5) Platelet Count 209 x10^3/uL (140-400) Neutrophils (%) (Auto) 78 % (31-73) Lymphocytes (%) (Auto) 13 % (24-48) Monocytes (%) (Auto) 5 % (0-9) Eosinophils (%) (Auto) 3 % (0-3) Basophils (%) (Auto) 1 % (0-3) Neutrophils # (Auto) 7.0 x10^3/uL (1.8-7.7) Lymphocytes # (Auto) 1.2 x10^3/uL (1.0-4.8) Monocytes # (Auto) 0.5 x10^3/uL (0.0-1.1) Eosinophils # (Auto) 0.3 x10^3/uL (0.0-0.7) Basophils # (Auto) 0.1 x10^3/uL (0.0-0.2) Prothrombin Time 29.4 SEC (11.7-14.0) Prothromb Time International Ratio 2.8 (0.8-1.1) Sodium Level 123 mmol/L (136-145) Potassium Level 4.8 mmol/L (3.5-5.1) Chloride Level 85 mmol/L (98-107) Carbon Dioxide Level 25 mmol/L (21-32) Anion Gap 13 (6-14) Blood Urea Nitrogen 57 mg/dL (8-26) Creatinine 10.6 mg/dL (0.7-1.3) Estimated GFR (Cockcroft-Gault) 4.9 Glucose Level 98 mg/dL (70-99) Calcium Level 9.0 mg/dL (8.5-10.1) Test 01/13/20 11:53 Glucose (Fingerstick) 116 mg/dL (70-99) Review of Systems Constitutional: yes: alert, oriented, other (UNABLE TO FULLY OBTAIN) Ears/Nose/Throat: Yes: no symptom reported Eyes: Yes: no symptom reported Pulmonary: Yes dyspnea Cardiovascular: Yes edema Gastrointestional: Yes: no symptom reported Genitourinary: Yes: no symptom reported Musculoskeletal: Yes: no symptom reported Physical Exam General Appearance: no apparent distress, other (UNABLE TO DO HE WILL NOT ALLOW ME TO DO IT) Skin: warm Respiratory: decreased breath sounds Heart: S1S2 Abdomen: soft, bowel sounds present Genitourinary: bladder flat Extremities: pulses present Assessment Assessment IMP HYPONATREMIA-IMPROVING HYPERVOLEMIA-BETTER ESRD ANEMIA DM II HTN INTRACTABLE LE PAIN PLAN HD TODAY UF TO DW UF ABOUT 5.0 LITERS MAY NEED EXTRA UF ALIZE NEEDED GALEN BOTELLO MD Jan 13, 2020 12:11
--- NOTE | 2020-01-13 14:58 | PDOC ---
[employer] PROGRESS NOTE Date of Service DOS: DATE: 01/13/20 TIME: 14:54 Chief Complaint Chief Complaint Lower extremity pain History of Present Illness History of Present Illness Patient evaluated with at bedside. He is able to stand, but has not yet walked. He is refusing physical therapy, correction, or home health. If patient is refusing all modalities of treatment, then he is able to discharge home. He has a walker at home. Will discharge with baclofen. Vitals/I&O Vitals/I&O: Vital Signs Date Time Temp Pulse Resp B/P (MAP) Pulse Ox O2 Delivery O2 Flow Rate FiO2 01/13/20 07:50 Room Air 01/13/20 07:00 98.5 64 123/55 (77) 97 2.0 98.5 01/12/20 11:00 18 I & O 01/12/20 01/12/20 01/13/20 15:00 23:00 07:00 Intake Total 320 ml 150 ml 170 ml Balance 320 ml 150 ml 170 ml Physical Exam General: Alert Heart: Regular rate Lungs: Clear, Crackles Abdomen: Other (Obese) Extremities: No clubbing, No cyanosis Skin: No rashes Labs Labs: Laboratory Tests Test 01/12/20 17:07 01/12/20 21:40 01/13/20 04:40 01/13/20 07:37 Glucose (Fingerstick) 97 mg/dL (70-99) 168 mg/dL (70-99) 134 mg/dL (70-99) White Blood Count 8.9 x10^3/uL (4.0-11.0) Red Blood Count 3.44 x10^6/uL (4.30-5.70) Hemoglobin 10.9 g/dL (13.0-17.5) Hematocrit 32.4 % (39.0-53.0) Mean Corpuscular Volume 94 fL (79-100) Mean Corpuscular Hemoglobin 32 pg (25-35) Mean Corpuscular Hemoglobin Concent 34 g/dL (31-37) Red Cell Distribution Width 16.8 % (11.5-14.5) Platelet Count 209 x10^3/uL (140-400) Neutrophils (%) (Auto) 78 % (31-73) Lymphocytes (%) (Auto) 13 % (24-48) Monocytes (%) (Auto) 5 % (0-9) Eosinophils (%) (Auto) 3 % (0-3) Basophils (%) (Auto) 1 % (0-3) Neutrophils # (Auto) 7.0 x10^3/uL (1.8-7.7) Lymphocytes # (Auto) 1.2 x10^3/uL (1.0-4.8) Monocytes # (Auto) 0.5 x10^3/uL (0.0-1.1) Eosinophils # (Auto) 0.3 x10^3/uL (0.0-0.7) Basophils # (Auto) 0.1 x10^3/uL (0.0-0.2) Prothrombin Time 29.4 SEC (11.7-14.0) Prothromb Time International Ratio 2.8 (0.8-1.1) Sodium Level 123 mmol/L (136-145) Potassium Level 4.8 mmol/L (3.5-5.1) Chloride Level 85 mmol/L (98-107) Carbon Dioxide Level 25 mmol/L (21-32) Anion Gap 13 (6-14) Blood Urea Nitrogen 57 mg/dL (8-26) Creatinine 10.6 mg/dL (0.7-1.3) Estimated GFR (Cockcroft-Gault) 4.9 Glucose Level 98 mg/dL (70-99) Calcium Level 9.0 mg/dL (8.5-10.1) Test 01/13/20 11:53 Glucose (Fingerstick) 116 mg/dL (70-99) Review of Systems Review of Systems: Back pain. Denies chest pain, denies shortness of breath, denies nausea, denies vomiting, denies fever. Assessment and Plan Assessmemt and Plan Problems Medical Problems: (1) Chronic kidney disease, stage IV (severe) Status: Acute (2) Hypertension Status: Acute (3) Inability to ambulate due to multiple joints Status: Acute Plan: We will discharge patient home with walker and self-care. Prescribe baclofen 5 mg 3 times daily. Comment Review of Relevant I have reviewed the following items joyce (where applicable) has been applied. Medications: Current Medications Medications (Trade) Dose Ordered Sig/Cristian Route PRN Reason Start Time Stop Time Status Last Admin Dose Admin Warfarin Sodium (Coumadin - No Dose Today) 1 each 1X WARF ONCE MC 01/12/20 16:00 01/12/20 16:01 DC 01/12/20 16:00 Baclofen (Lioresal) 10 mg TID PO 01/12/20 21:00 01/13/20 14:30 Justifications for Admission Other Justification Intractable pain, left lower extremity wound DENISE LOPEZ MD Jan 13, 2020 14:57
[2020-01-13 15:00] VITALS: BP 163/64
[2020-01-13] MEDS ORDERED: BACL10TA PO (15:12)
--- NOTE | 2020-01-13 15:18 | PDOC3 ---
Discharge Summary Visit Information Date of Admission: Jan 10, 2020 Date of Discharge: Jan 13, 2020 Final Diagnosis Problems Medical Problems: (1) Chronic kidney disease, stage IV (severe) Status: Acute (2) Hypertension Status: Acute (3) Inability to ambulate due to multiple joints Status: Acute Brief Hospital Course Allergies Allergies Coded Allergies Type Severity Reaction Last Updated Verified No Known Drug Allergies 09/27/19 No Vital Signs Vital Signs Date Time Temp Pulse Resp B/P (MAP) Pulse Ox O2 Delivery O2 Flow Rate FiO2 01/13/20 07:50 Room Air 01/13/20 07:00 98.5 64 123/55 (77) 97 2.0 98.5 01/12/20 11:00 18 Lab Results Laboratory Tests Test 01/11/20 16:58 01/11/20 17:26 01/11/20 20:25 01/12/20 03:17 Glucose (Fingerstick) 51 mg/dL (70-99) 88 mg/dL (70-99) 67 mg/dL (70-99) 37 mg/dL (70-99) Test 01/12/20 03:40 01/12/20 04:20 01/12/20 07:42 01/12/20 08:39 Glucose (Fingerstick) 94 mg/dL (70-99) 40 mg/dL (70-99) 151 mg/dL (70-99) Prothrombin Time 36.2 SEC (11.7-14.0) Prothromb Time International Ratio 3.6 (0.8-1.1) Test 01/12/20 09:55 01/12/20 11:52 01/12/20 17:07 01/12/20 21:40 White Blood Count 8.5 x10^3/uL (4.0-11.0) Red Blood Count 3.33 x10^6/uL (4.30-5.70) Hemoglobin 10.7 g/dL (13.0-17.5) Hematocrit 31.5 % (39.0-53.0) Mean Corpuscular Volume 95 fL (79-100) Mean Corpuscular Hemoglobin 32 pg (25-35) Mean Corpuscular Hemoglobin Concent 34 g/dL (31-37) Red Cell Distribution Width 16.7 % (11.5-14.5) Platelet Count 190 x10^3/uL (140-400) Neutrophils (%) (Auto) 87 % (31-73) Lymphocytes (%) (Auto) 6 % (24-48) Monocytes (%) (Auto) 6 % (0-9) Eosinophils (%) (Auto) 1 % (0-3) Basophils (%) (Auto) 0 % (0-3) Neutrophils # (Auto) 7.4 x10^3/uL (1.8-7.7) Lymphocytes # (Auto) 0.5 x10^3/uL (1.0-4.8) Monocytes # (Auto) 0.5 x10^3/uL (0.0-1.1) Eosinophils # (Auto) 0.1 x10^3/uL (0.0-0.7) Basophils # (Auto) 0.0 x10^3/uL (0.0-0.2) Segmented Neutrophils % 86 % (35-66) Band Neutrophils % 2 % (0-9) Lymphocytes % 6 % (24-48) Monocytes % 6 % (0-10) Platelet Estimate Adequate (ADEQUATE) Sodium Level 125 mmol/L (136-145) Potassium Level 5.0 mmol/L (3.5-5.1) Chloride Level 88 mmol/L (98-107) Carbon Dioxide Level 29 mmol/L (21-32) Anion Gap 8 (6-14) Blood Urea Nitrogen 42 mg/dL (8-26) Creatinine 8.9 mg/dL (0.7-1.3) Estimated GFR (Cockcroft-Gault) 6.0 Glucose Level 167 mg/dL (70-99) Calcium Level 8.5 mg/dL (8.5-10.1) Glucose (Fingerstick) 125 mg/dL (70-99) 97 mg/dL (70-99) 168 mg/dL (70-99) Test 01/13/20 04:40 01/13/20 07:37 01/13/20 11:53 White Blood Count 8.9 x10^3/uL (4.0-11.0) Red Blood Count 3.44 x10^6/uL (4.30-5.70) Hemoglobin 10.9 g/dL (13.0-17.5) Hematocrit 32.4 % (39.0-53.0) Mean Corpuscular Volume 94 fL (79-100) Mean Corpuscular Hemoglobin 32 pg (25-35) Mean Corpuscular Hemoglobin Concent 34 g/dL (31-37) Red Cell Distribution Width 16.8 % (11.5-14.5) Platelet Count 209 x10^3/uL (140-400) Neutrophils (%) (Auto) 78 % (31-73) Lymphocytes (%) (Auto) 13 % (24-48) Monocytes (%) (Auto) 5 % (0-9) Eosinophils (%) (Auto) 3 % (0-3) Basophils (%) (Auto) 1 % (0-3) Neutrophils # (Auto) 7.0 x10^3/uL (1.8-7.7) Lymphocytes # (Auto) 1.2 x10^3/uL (1.0-4.8) Monocytes # (Auto) 0.5 x10^3/uL (0.0-1.1) Eosinophils # (Auto) 0.3 x10^3/uL (0.0-0.7) Basophils # (Auto) 0.1 x10^3/uL (0.0-0.2) Prothrombin Time 29.4 SEC (11.7-14.0) Prothromb Time International Ratio 2.8 (0.8-1.1) Sodium Level 123 mmol/L (136-145) Potassium Level 4.8 mmol/L (3.5-5.1) Chloride Level 85 mmol/L (98-107) Carbon Dioxide Level 25 mmol/L (21-32) Anion Gap 13 (6-14) Blood Urea Nitrogen 57 mg/dL (8-26) Creatinine 10.6 mg/dL (0.7-1.3) Estimated GFR (Cockcroft-Gault) 4.9 Glucose Level 98 mg/dL (70-99) Calcium Level 9.0 mg/dL (8.5-10.1) Glucose (Fingerstick) 134 mg/dL (70-99) 116 mg/dL (70-99) Laboratory Tests Test 01/12/20 17:07 01/12/20 21:40 01/13/20 04:40 01/13/20 07:37 Glucose (Fingerstick) 97 mg/dL (70-99) 168 mg/dL (70-99) 134 mg/dL (70-99) White Blood Count 8.9 x10^3/uL (4.0-11.0) Red Blood Count 3.44 x10^6/uL (4.30-5.70) Hemoglobin 10.9 g/dL (13.0-17.5) Hematocrit 32.4 % (39.0-53.0) Mean Corpuscular Volume 94 fL (79-100) Mean Corpuscular Hemoglobin 32 pg (25-35) Mean Corpuscular Hemoglobin Concent 34 g/dL (31-37) Red Cell Distribution Width 16.8 % (11.5-14.5) Platelet Count 209 x10^3/uL (140-400) Neutrophils (%) (Auto) 78 % (31-73) Lymphocytes (%) (Auto) 13 % (24-48) Monocytes (%) (Auto) 5 % (0-9) Eosinophils (%) (Auto) 3 % (0-3) Basophils (%) (Auto) 1 % (0-3) Neutrophils # (Auto) 7.0 x10^3/uL (1.8-7.7) Lymphocytes # (Auto) 1.2 x10^3/uL (1.0-4.8) Monocytes # (Auto) 0.5 x10^3/uL (0.0-1.1) Eosinophils # (Auto) 0.3 x10^3/uL (0.0-0.7) Basophils # (Auto) 0.1 x10^3/uL (0.0-0.2) Prothrombin Time 29.4 SEC (11.7-14.0) Prothromb Time International Ratio 2.8 (0.8-1.1) Sodium Level 123 mmol/L (136-145) Potassium Level 4.8 mmol/L (3.5-5.1) Chloride Level 85 mmol/L (98-107) Carbon Dioxide Level 25 mmol/L (21-32) Anion Gap 13 (6-14) Blood Urea Nitrogen 57 mg/dL (8-26) Creatinine 10.6 mg/dL (0.7-1.3) Estimated GFR (Cockcroft-Gault) 4.9 Glucose Level 98 mg/dL (70-99) Calcium Level 9.0 mg/dL (8.5-10.1) Test 01/13/20 11:53 Glucose (Fingerstick) 116 mg/dL (70-99) Brief Hospital Course Mr. Denny is a 64 old male who presented with difficulty ambulating due to atraumatic lower back pain. His pain was deemed to be musculoskeletal in nature. Patient refused physical therapy, home health, prison. His pain was improved with muscle relaxers. He was able to stand and ambulate with a cane upon discharge. Discharge Information Condition at Discharge: Stable Disposition/Orders: D/C to Home Scheduled Baclofen (Baclofen) 10 Mg Tablet, 5 MG PO TID for back pain, #90 Ref 0 Prescribed by: DENISE LOPEZ MD on 01/13/20 1512 Doxycycline Hyclate (Doxycycline Hyclate) 100 Mg Tablet, 100 MG PO BID for Cellulitis for 10 Days, #20 Prescribed by: ALEX ARENAS MD on 12/31/19 1058 Last Action: Continued on 01/10/202222 by IRON GARCIA Folic Acid/Vit Bcomp,C (Renal Vitamin Tablet) 0.8 Mg Tablet, 0.8 MG PO DAILY, (Reported) Entered as Reported by: HOANG AGUIRRE on 05/22/16 0800 Last Action: Continued on 01/10/202222 by IRON GARCIA Insulin Lispro (Humalog) 100 Unit/1 Ml Insuln.pen, 50 UNIT SQ BIDACBL, (Reported) Entered as Reported by: HOANG AGUIRRE on 05/22/16 0800 Last Action: Converted on 01/10/202222 by IRON GARCIA Insulin Lispro (Humalog) 100 Unit/1 Ml Vial, 60 UNIT SQ DAILYWSUP for rx, (Reported) Entered as Reported by: CHUCKY FLYNN on 09/27/19 0847 Last Action: Continued on 01/10/202222 by IRON GARCIA Losartan Potassium (Losartan Potassium) 50 Mg Tablet, 25 MG PO DAILY for HYPERTENSION, (Reported) Entered as Reported by: BALTA BENITO on 12/16/19 113 Last Action: Continued on 01/10/202222 by IRON GARCIA Temazepam (Temazepam) 15 Mg Capsule, 1 CAP PO QHS for insomia, #30 Ref 1 (Reported) Entered as Reported by: BALTA BENITO on 12/16/19 113 Last Action: Continued on 01/10/202222 by IRON GARCIA Verapamil Hcl (Verapamil Hcl) 80 Mg Tablet, 2 TAB PO BID for htn, (Reported) Entered as Reported by: BALTA BENITO on 12/16/19 1134 Last Action: Converted on 01/10/202222 by IRON GARCIA Warfarin Sodium (Warfarin Sodium) 5 Mg Tablet, 5 MG PO DAILY for DVT Hx, (Reported) Entered as Reported by: COBY LA on 12/19/13 1125 Last Action: Continued on 01/10/202222 by IRON GARCIA Scheduled PRN Acetaminophen (Acetaminophen) 500 Mg Tablet, 1 TAB PO BID PRN for PAIN, #60 Ref 1 (Reported) Entered as Reported by: ANJEL WU on 08/26/18328 Last Action: Continued on 01/10/202222 by IRON GARCIA Insulin Glargine,Hum.rec.anlog (Lantus Solostar) 100 Unit/1 Ml Insuln.pen, 35 UNIT SQ BIDAC PRN for rx, #15 Ref 3 (Reported) Entered as Reported by: CHUCKY FLYNN on 09/27/1947 Last Action: Converted on 01/10/202222 by IRON GARCIA Ondansetron (Zofran Odt) 4 Mg Tab.rapdis, 4 MG PO BID PRN for NAUSEA/VOMITING, #10 Prescribed by: JASWINDER DOMINGUEZ on 06/26/17 1852 Last Action: Continued on 01/10/202222 by IRON GARCIA Psyllium Husk (Metamucil) 0.52 Gm Capsule, 1 CAP PO HS PRN for bowel program for 30 Days, #30 Ref 0 (Reported) Entered as Reported by: IRON GARCIA on 01/10/202125 Last Taken: Unknown Dose on 01/09/20 Last Action: Converted on 01/10/202222 by IRON GARCIA Discontinued Medications Aspirin (Aspirin) 81 Mg Tab.chew, 1 TAB PO DAILY for antiplatelet, #30 Ref 3 (Reported) Entered as Reported by: ANJEL WU on 08/26/18328 Last Action: Discontinued on 01/10/202122 by IRON GARCIA Justicifation of Admission Dx: Justifications for Admission: Justification of Admission Dx: Yes Chronic Renal Failure: Hypertension Cellulitis: Cellulitis DENISE LOPEZ MD Jan 13, 2020 15:18
--- NOTE | 2020-01-13 15:45 | NUR ---
Pt left unit at approx 1545 by wheelchair via private vehicle, accompanied by . Pt's IV removed without complication, VSS. Discharge paperwork discussed with pt. Pt verbalizes understanding with no further questions.
[2020-01-13] MEDS ORDERED: WARFARIN 5 MG TABLET. PO ONE (16:00)
--- NOTE | 2020-01-13 17:09 | NUR ---
EITAN following. Reviewed chart and spoke with RN. Pt to discharge home today, self-care. Pt high risk for re-admission per hx of noncompliance and refusal of out-patient follow up services on discharge. Pt on room air so 6 min walk is not needed. Pt on oral medications. No further EITAN needs at this time. Addendum: 01/16/20 at 1133 by JASS LAIRD Pt has had 7 hospitalizations since April. Pt is at high risk for readmission. EITAN completed an APS report for self-neglect and non compliance and the intake number is [id number].
== END 2020-01-13 15:47 | disposition home or self-care (01) | DRG 555 ==
LOC: ER 14:25 → ED HOLD 17:45 → 5 NORTH 20:54
PROVIDERS: ADMIT Internal Medicine; ATTEND Internal Medicine
PROC: 5A1D70Z Performance of Urinary Filtration, Intermittent, Less than 6 Hours Per Day (ICD-10-PCS; principal; 2020-01-11)
PROC: 5A1D70Z Performance of Urinary Filtration, Intermittent, Less than 6 Hours Per Day (ICD-10-PCS; 2020-01-13)
DX: M79.18 Myalgia, other site (principal); N18.6 End stage renal disease; E87.1 Hypo-osmolality and hyponatremia; I12.0 Hypertensive chronic kidney disease with stage 5 chronic kidney disease or end stage renal disease; E46 Unspecified protein-calorie malnutrition; Z68.41 Body mass index [BMI] 40.0-44.9, adult; M25.552 Pain in left hip; D64.9 Anemia, unspecified; E11.22 Type 2 diabetes mellitus with diabetic chronic kidney disease; E78.5 Hyperlipidemia, unspecified; E87.70 Fluid overload, unspecified; J44.9 Chronic obstructive pulmonary disease, unspecified; M47.9 Spondylosis, unspecified; Z53.20 Procedure and treatment not carried out because of patient's decision for unspecified reasons; Z79.01 Long term (current) use of anticoagulants; Z79.4 Long term (current) use of insulin; Z79.82 Long term (current) use of aspirin; Z82.49 Family history of ischemic heart disease and other diseases of the circulatory system; Z83.3 Family history of diabetes mellitus; Z86.711 Personal history of pulmonary embolism; Z86.718 Personal history of other venous thrombosis and embolism; Z87.891 Personal history of nicotine dependence; Z95.828 Presence of other vascular implants and grafts; Z99.2 Dependence on renal dialysis; E11.40 Type 2 diabetes mellitus with diabetic neuropathy, unspecified; M25.551 Pain in right hip
CPT/HCPCS: 36415; 72131; 73521; 73562; 73610; 80048; 80053; 82553; 82962; 83605; 85007; 85025; 85610; 96374; 96375; 99284; 99285; J1815; J2270; J2405; G0378

== ENCOUNTER 2020-01-23 18:57 | Emergency (ER) | payer MEDICARE, OTHER ==
[~2020-01-23] VITALS: Ht 193 cm; Wt 155.0 kg
[~2020-01-23 18:57] MED LIST changes: +BACL10TA PO; +PSYL0.5215 PO
[2020-01-23] MEDS ORDERED: ACETAMINOPHEN 325 MG TABLET. PO ONE (19:15)
[2020-01-23 19:43] LABS: BASO # 0.1 x10^3/uL (0.0-0.2); BASO % 1 % (0-3); EOS # 0.3 x10^3/uL (0.0-0.7); EOS % 4 % (0-3); HEMATOCRIT 28.4 % (39.0-53.0); HEMOGLOBIN 9.7 g/dL (13.0-17.5); LYMPH # 0.8 x10^3/uL (1.0-4.8); LYMPH % 10 % (24-48); MEAN CORPUSCULAR HEMOGLOBIN 32 pg (25-35); MEAN CORPUSCULAR HGB CONC 34 g/dL (31-37); MEAN CORPUSCULAR VOLUME 94 fL (79-100); MONO # 0.4 x10^3/uL (0.0-1.1); MONO % 5 % (0-9); NEUT # 6.4 x10^3/uL (1.8-7.7); NEUT % 81 % (31-73); PLATELET COUNT 154 x10^3/uL (140-400); RED BLOOD COUNT 3.03 x10^6/uL (4.30-5.70); RED CELL DISTRIBUTION WIDTH 16.3 % (11.5-14.5)
--- NOTE | 2020-01-23 19:44 | PHYS DOC ---
Past Medical History Past Medical History: DVT, Hypertension, Renal Disease Additional Past Medical Histor: neuropathy, PE Past Surgical History: Other Additional Past Surgical Histo: colon resection Smoking Status: Former Smoker Alcohol Use: Rarely Drug Use: None General Adult EDM: Chief Complaint: FEVER HPI: HPI: Patient is a 64 year old male with a past medical history of ESRD (M-W-F) Patient did dialyze today. He presents for evaluation due to a fever. Patient is currently afebrile. Patient denies any associated chest pain shortness of breath nausea or vomiting. States he is chronically short of breath with a cough--- neither are worse than normal. Patient took ASA for his fever. Patients only associated symptom includes chills. Review of Systems: Review of Systems: Constitutional: positive fever and chills Eyes: Denies change in visual acuity. [] HENT: Denies nasal congestion or sore throat. [] Respiratory: Denies cough or shortness of breath. [] Cardiovascular: Denies chest pain or edema. [] GI: Denies abdominal pain, nausea, vomiting, bloody stools or diarrhea. [] : Denies dysuria. [] Musculoskeletal: Denies back pain or joint pain. [] Integument: Denies rash. [] Neurologic: Denies headache, focal weakness or sensory changes. [] Endocrine: Denies polyuria or polydipsia. [] Lymphatic: Denies swollen glands. [] Psychiatric: Denies depression or anxiety. [] Heart Score: Risk Factors: Risk Factors: DM, Current or recent (<one month) smoker, HTN, HLP, family history of CAD, obesity. Risk Scores: Score 0 - 3: 2.5% MACE over next 6 weeks - Discharge Home Score 4 - 6: 20.3% MACE over next 6 weeks - Admit for Clinical Observation Score 7 - 10: 72.7% MACE over next 6 weeks - Early Invasive Strategies Current Medications: Current Medications Medications (Trade) Dose Ordered Sig/Cristian Start Time Stop Time Status Last Admin Dose Admin Acetaminophen (Tylenol) 650 mg 1X ONCE 01/23/20 19:15 01/23/20 19:16 DC Allergies: Allergies: Allergies Coded Allergies Type Severity Reaction Last Updated Verified No Known Drug Allergies 09/27/19 No Physical Exam: PE: Constitutional: Well developed, well nourished, no acute distress, non-toxic appearance. [] HENT: Normocephalic, atraumatic, bilateral external ears normal, oropharynx moist, no oral exudates, nose normal. [] Eyes: PERRLA, EOMI, conjunctiva normal, no discharge. [] Neck: Normal range of motion, no tenderness, supple, no stridor. [] Cardiovascular:Heart rate regular rhythm, no murmur [] Lungs & Thorax: Bilateral breath sounds clear to auscultation [] Abdomen: Bowel sounds normal, soft, no tenderness, no masses, no pulsatile masses. [] Skin: Warm, dry, no erythema, no rash. [Erythema bilateral lower extremities ankles, Right foot healing ulcer no surround cellulitis of heal] Back: No tenderness, no CVA tenderness. [] Extremities: No tenderness, no cyanosis, no clubbing, ROM intact, no edema. [] Neurologic: Alert and oriented X 3, normal motor function, normal sensory function, no focal deficits noted. [] Psychologic: Affect normal, judgement normal, mood normal. [] Current Patient Data: Vital Signs: Vital Signs Date Time Temp Pulse Resp B/P (MAP) Pulse Ox O2 Delivery O2 Flow Rate FiO2 01/23/20 19:04 100.0 90 26 172/74 (106) 94 Room Air 100.0 EKG: EKG: [] Radiology/Procedures: Radiology/Procedures: [] Impression: FINDINGS: The cardiomediastinal silhouette is unchanged. Lungs are adequately expanded. Mild bilateral opacities are unchanged and likely reflect pulmonary edema.. No focal consolidation, pleural effusion, or pneumothorax. No acute osseous abnormality. IMPRESSION: Unchanged mild bilateral opacities, likely mild pulmonary edema. Course & Med Decision Making: Course & Med Decision Making Pertinent Labs and Imaging studies reviewed. (See chart for details) [] Patient evaluate for chief complaint. Workup consisted of labs and radiologic imaging. Results reviewed and discussed with patient. COVID obtained and pending. Patient was treated with tylenol and single gram of vancomycin. Patient states he feels fine and would like to go home. Patient is currently on antiboitics and advised to continue. Patient advised to continue follow up with wound care. Patient discharged home. Dragon Disclaimer: Jonna Disclaimer: This electronic medical record was generated, in whole or in part, using a voice recognition dictation system. Departure Departure Impression: Primary Impression: Fever Additional Impressions: ESRD (end stage renal disease) Cellulitis Disposition: 01 HOME, SELF-CARE Condition: STABLE Referrals: HIGINIO WISE MD (PCP) Patient Instructions: Cellulitis, End Stage Kidney Disease, Fever Additional Instructions: You have been tested for or diagnosed with COVID-19. It is an infection caused by a new type of coronavirus. COVID-19 will cause cold-like or mild flu symptoms in most. It can cause more severe symptoms like problems breathing in some. There is no treatment for COVID-19. The body will clear the infection over time. Self-care will help to ease discomfort. Steps to Take: Self-Care Rest as needed. Healthy habits may help you feel better. Steps include: Choose healthy foods including fruits and vegetables. Drink water throughout the day. Get plenty of sleep each night. If you smoke, try to quit. It may ease breathing. Avoid alcohol. Keep Others Healthy The virus can spread to others. Droplets are released every time you sneeze or cough. The droplets can get into the mouth, nose, or eyes of people near you and lead to infection. To lower the chances of spreading COVID-19 to others: Stay at home until your doctor has said it is safe to leave. If you tested positive this will mean staying isolated until both of the following are true: At least 7 days have passed since the start of illness. You are free of fever for at least 72 hours without the use of medicine. During this time: - Avoid public areas, events, or transportation. Do not return to work or school until your doctor has said it is safe to do so. - Call ahead if you need to go to a medical center. Let them know you may have COVID-19. It will help them guide you where to go. They may also ask you to wear a facemask when you come to the office. - If you call for emergency medical services, let them know you may have COVID- 19. While at home: - Try to avoid close contact with others. Stay about 6 feet away. - If possible, spend most of your time in a separate room from others. - Use a face mask if you will be in close contact with others such as sharing a room or vehicle. - Have someone wipe down common surfaces in the home. Use household news assistant every day on areas like doorknobs, counters, or sinks. - Cough or sneeze into a tissue. Throw the tissue away right after use. If a tissue is not available, cough or sneeze into your elbow. - Wash your hands often. Wash them after sneezing or coughing. Use soap and water and wash for at least 20 seconds. Alcohol based hand mandrel cleaner can be used if soap and water is not available. - Do not prepare food for others. Avoid sharing personal items like forks, spoons, or toothbrushes. - Avoid close contact with pets while you are sick. There is no evidence of the virus passing to pets. This is a safety step until more is known about this virus. Isolation can be frustrating. Social interaction can help. Keep in touch with friends and family through phone and tech options. You can still interact with others in your home, just keep a safe distance of about 6 feet. Follow-up: Your doctors office will check in with you to see if there are any changes in your health. You may be asked to keep track of symptoms to share with them. They will also let you know when you are clear to be in public again. Problems to Look Out For: Contact your doctor if your recovery is not going as you expect. Get emergency care if you have problems such as: - Trouble breathing - Nonstop chest pain or pressure - Changes in awareness, confusion, or problems waking - Lips or face have bluish color - Worsening of symptoms If you think you have an emergency, call for emergency medical services right a way. As taken from [facility] Justicifation of Admission Dx: Justifications for Admission: Justification of Admission Dx: Yes Chronic Renal Failure: Hypertension Cellulitis: Cellulitis MEHDI JIMENEZ I DO Jan 23, 2020 19:44
[2020-01-23 19:49] LABS: CREATININE 5.8 mg/dL (0.7-1.3); GFR 9.9; POTASSIUM 3.8 mmol/L (3.5-5.1)
[2020-01-23 19:55] LABS: ALBUMIN 2.7 g/dL (3.4-5.0); ALBUMIN/GLOBULIN RATIO 0.5 (1.0-1.7); TOTAL BILIRUBIN 0.5 mg/dL (0.2-1.0); TOTAL PROTEIN 7.7 g/dL (6.4-8.2)
--- NOTE | 2020-01-23 20:01 | RAD ---
EXAM: CHEST AP ONLY 01/23/2020 7:31 PM CLINICAL INDICATION: Fever COMPARISON: Chest radiograph 12/16/2019 TECHNIQUE: AP upright view of the chest FINDINGS: The cardiomediastinal silhouette is unchanged. Lungs are adequately expanded. Mild bilateral opacities are unchanged and likely reflect pulmonary edema.. No focal consolidation, pleural effusion, or pneumothorax. No acute osseous abnormality. IMPRESSION: Unchanged mild bilateral opacities, likely mild pulmonary edema. Electronically signed by: Laverne Estrada MD (01/23/2020 7:58 PM) [id number]
[2020-01-23] MEDS ORDERED: VANCOMYCIN 1GM IVPB FOR OMNI 250 ML IV ONE (21:00)
[2020-01-23] MEDS ORDERED: VANCOMYCIN PER PHARMACY MC PRN (21:15)
[2020-01-23] MEDS ORDERED: VANCOMYCIN 2 GM in IV NORMAL SALINE 500ML BAG 500 ML IV ONE (21:30)
[2020-01-23 23:30] VITALS: BP 162/74
--- NOTE | 2020-01-26 10:35 | NUR ---
IP: Attempted to call COVID results, no answer. Left a voicemail for a return call.
--- NOTE | 2020-01-26 12:30 | NUR ---
IP: Pt returned call. I gave him the negative COVID results. Pt verbalized understanding.
== END 2020-01-23 23:40 | disposition home or self-care (01) ==
LOC: ER 18:57
DX: R50.9 Fever, unspecified (principal); Z20.828 Contact with and (suspected) exposure to other viral communicable diseases; N18.6 End stage renal disease; R06.02 Shortness of breath; L03.115 Cellulitis of right lower limb; R05 Cough; I10 Essential (primary) hypertension; Z98.890 Other specified postprocedural states; Z87.891 Personal history of nicotine dependence; Z86.718 Personal history of other venous thrombosis and embolism
CPT/HCPCS: 36415; 71045; 80053; 83605; 85025; 87040; 96365; 96366; 99285; J3370; J7040; U0003

== ENCOUNTER 2020-02-22 02:44 | Inpatient (IN) | payer MEDICARE, OTHER ==
[~2020-02-22] VITALS: Ht 193 cm; Wt 140.8 kg
--- NOTE | 2020-02-22 03:01 | PHYS DOC ---
Past Medical History Past Medical History: DVT, Hypertension, Renal Disease Additional Past Medical Histor: neuropathy, PE Past Surgical History: Other Additional Past Surgical Histo: colon resection, dialysis shunt left arm Smoking Status: Former Smoker Alcohol Use: Occasionally Drug Use: None General Adult EDM: Chief Complaint: WEAKNESS/GENERALIZED HPI: HPI: Patient is a 64 year old male with past medical history hypertension end-stage renal disease presents with a chief complaint of bilateral lower extremity weak ness. Patient states he has had weakness ongoing for 1 month progressively getting worse. Patient states his legs feel weak and he is having difficulty getting up out of bed or chair to stand. Patient states once he is up standing he is able to get around his house with his walker with little difficulty. Patient states yesterday he was supposed to start physical therapy but becase he has no vehicle so he was unable to go the the appointment. Patient presents requesting admission to the hospital for physical therapy. Review of Systems: Review of Systems: Constitutional: Denies fever or chills. [] Eyes: Denies change in visual acuity. [] HENT: Denies nasal congestion or sore throat. [] Respiratory: Denies cough or shortness of breath. [] Cardiovascular: Denies chest pain or edema. [] GI: Denies abdominal pain, nausea, vomiting, bloody stools or diarrhea. [] : Denies dysuria. [] Musculoskeletal: Denies back pain positive joint pain Integument: Denies rash. [] Neurologic: Denies headache, focal weakness or sensory changes. [Positive lower extremity weakness] Endocrine: Denies polyuria or polydipsia. [] Lymphatic: Denies swollen glands. [] Psychiatric: Denies depression or anxiety. [] Heart Score: Risk Factors: Risk Factors: DM, Current or recent (<one month) smoker, HTN, HLP, family history of CAD, obesity. Risk Scores: Score 0 - 3: 2.5% MACE over next 6 weeks - Discharge Home Score 4 - 6: 20.3% MACE over next 6 weeks - Admit for Clinical Observation Score 7 - 10: 72.7% MACE over next 6 weeks - Early Invasive Strategies Allergies: Allergies: Allergies Coded Allergies Type Severity Reaction Last Updated Verified No Known Drug Allergies 09/27/19 No Physical Exam: PE: Constitutional: Well developed, well nourished, no acute distress, non-toxic appearance. [] HENT: Normocephalic, atraumatic, bilateral external ears normal, oropharynx moist, no oral exudates, nose normal. [] Eyes: PERRLA, EOMI, conjunctiva normal, no discharge. [] Neck: Normal range of motion, no tenderness, supple, no stridor. [] Cardiovascular:Heart rate regular rhythm, no murmur [] Lungs & Thorax: Bilateral breath sounds clear to auscultation [] Abdomen: Bowel sounds normal, soft, no tenderness, no masses, no pulsatile masses. [] Skin: Warm, dry, no erythema, no rash. [] Back: No tenderness, no CVA tenderness. [] Extremities: No tenderness, no cyanosis, no clubbing, ROM intact, no edema. [] Neurologic: Alert and oriented X 3, normal motor function, normal sensory function, no focal deficits noted. [] Psychologic: Affect normal, judgement normal, mood normal. [] EKG: EKG: [] Time 258 heart rate 81 sinus rhythm left axis deviation no STEMI Radiology/Procedures: Radiology/Procedures: [] Course & Med Decision Making: Course & Med Decision Making Pertinent Labs and Imaging studies reviewed. (See chart for details) [] Dragon Disclaimer: Dragon Disclaimer: This electronic medical record was generated, in whole or in part, using a voice recognition dictation system. Departure Departure Impression: Primary Impression: Inability to ambulate due to multiple joints Additional Impression: Chronic kidney disease, stage IV (severe) Disposition: 09 ADMITTED INPT THIS HOSP [facility] Condition: STABLE Referrals: HIGINIO WISE MD (PCP) MEHDI JIMENEZ DO Feb 22, 2020 03:01
--- NOTE | 2020-02-22 03:19 | EKG ---
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
[2020-02-22 03:26] LABS: BASO # 0.1 x10^3/uL (0.0-0.2); BASO % 1 % (0-3); EOS # 0.4 x10^3/uL (0.0-0.7); EOS % 5 % (0-3); HEMATOCRIT 33.1 % (39.0-53.0); HEMOGLOBIN 11.2 g/dL (13.0-17.5); LYMPH # 1.1 x10^3/uL (1.0-4.8); LYMPH % 14 % (24-48); MEAN CORPUSCULAR HEMOGLOBIN 32 pg (25-35); MEAN CORPUSCULAR HGB CONC 34 g/dL (31-37); MEAN CORPUSCULAR VOLUME 94 fL (79-100); MONO # 0.4 x10^3/uL (0.0-1.1); MONO % 5 % (0-9); NEUT # 5.9 x10^3/uL (1.8-7.7); NEUT % 74 % (31-73); PLATELET COUNT 192 x10^3/uL (140-400); RED BLOOD COUNT 3.51 x10^6/uL (4.30-5.70); RED CELL DISTRIBUTION WIDTH 16.6 % (11.5-14.5)
[2020-02-22 03:34] LABS: CALCIUM 9.6 mg/dL (8.5-10.1); CREATININE 7.1 mg/dL (0.7-1.3); GFR 7.8; POTASSIUM 3.9 mmol/L (3.5-5.1)
[2020-02-22 03:40] LABS: ALBUMIN 2.9 g/dL (3.4-5.0); ALBUMIN/GLOBULIN RATIO 0.5 (1.0-1.7); TOTAL BILIRUBIN 0.6 mg/dL (0.2-1.0); TOTAL PROTEIN 8.6 g/dL (6.4-8.2)
[2020-02-22 05:00] VITALS: BP 175/73
[2020-02-22 07:00] VITALS: BP 169/69
[2020-02-22] MEDS ORDERED: ACETAMINOPHEN 500 MG TABLET PO PRN (08:15)
[2020-02-22] MEDS ORDERED: ONDANSETRON ODT 4 MG TAB.RAPDIS. PO PRN (08:15)
[2020-02-22] MEDS ORDERED: MAGNESIUM HYDROXIDE 2,400 MG/30 ML ORAL.SUSP. PO PRN (08:30)
[2020-02-22] MEDS ORDERED: ACETAMINOPHEN 325 MG TABLET. PO PRN (08:30)
[2020-02-22] MEDS ORDERED: BISACODYL 10 MG SUPP.RECT. PR PRN (08:30)
[2020-02-22] MEDS ORDERED: MORPHINE SULFATE 2 MG/ML VIAL. IV PRN (08:30)
[2020-02-22] MEDS ORDERED: MAG HYDROX/ALUMINUM HYD/SIMETH 30 ML ORAL.SUSP PO PRN (08:30)
[2020-02-22] MEDS ORDERED: DEXTROSE 50% 25 GM / 50ML DISP.SYRIN. IV PRN (08:30)
[2020-02-22] MEDS ORDERED: HYDROcodone/APAP 5/325MG 1 TAB TABLET PO PRN (08:30)
[2020-02-22] MEDS ORDERED: CALCIUM CARBONATE 500 MG TAB.CHEW PO PRN (08:30)
[2020-02-22] MEDS ORDERED: ZOLPIDEM 5 MG TABLET. PO PRN (08:30)
[2020-02-22] MEDS ORDERED: ONDANSETRON PF 4 MG/2 ML VIAL. IVP PRN (08:30)
--- NOTE | 2020-02-22 08:30 | PDOC1 ---
History and Physical Date of Admission Date of Admission DATE: 02/22/20 TIME: 08:12 Identification/Chief Complaint Chief Complaint Leg weakness Source Source: Chart review, Patient History of Present Illness History of Present Illness Patient is 64-year-old male past medical history end-stage renal disease, who complains of ER with complaints of worsening bilateral lower extremity weakness for the past month. Patient states he is normally able to ambulate with his walker, recently reports difficulty able to get out of his chair. States he was told to start outpatient physical therapy recently, but has been unable to get a ride to his appointment. Patient denies any recent fevers, chills, shortness of breath. Past Medical History Cardiovascular: HTN, Hyperlipidemia Pulmonary: COPD, Other GI: Other Renal/: Chronic renal insuff Endocrine: Diabetes Past Surgical History Past Surgical History: Colectomy, Colon Resection, Other Family History Family History: Cancer, Diabetes, Hypertension Social History Smoke: Quit ALCOHOL: none Drugs: None Current Problem List Problem List Problems Medical Problems: (1) Chronic kidney disease, stage IV (severe) Status: Acute (2) Inability to ambulate due to multiple joints Status: Acute Current Medications Current Medications Active Scripts Active Baclofen 10 Mg Tablet 5 Mg PO TID Zofran Odt (Ondansetron) 4 Mg Tab.rapdis 4 Mg PO BID PRN Reported Metamucil (Psyllium Husk) 0.52 Gm Capsule 1 Cap PO HS PRN 30 Days Temazepam 15 Mg Capsule 1 Cap PO QHS Losartan Potassium 50 Mg Tablet 25 Mg PO DAILY Verapamil Hcl 80 Mg Tablet 2 Tab PO BID Humalog (Insulin Lispro) 100 Unit/1 Ml Vial 60 Unit SQ DAILYWSUP Lantus Solostar (Insulin Glargine,Hum.rec.anlog) 100 Unit/1 Ml Insuln.pen 35 Unit SQ BIDAC PRN Acetaminophen 500 Mg Tablet 1 Tab PO BID PRN Renal Vitamin Tablet (Folic Acid/Vit Bcomp,C) 0.8 Mg Tablet 0.8 Mg PO DAILY Humalog (Insulin Lispro) 100 Unit/1 Ml Insuln.pen 50 Unit SQ BIDACBL Warfarin Sodium 5 Mg Tablet 5 Mg PO DAILY Allergies Allergies: Coded Allergies: No Known Drug Allergies (Unverified , 09/27/19) ROS Review of System GENERAL: No history of weight change, weakness or fevers. SKIN: No bruising, hair changes or rashes. EYES: No blurred, double or loss of vision. NOSE AND THROAT: No history of nosebleeds, hoarseness or sore throat. HEART: Denies chest pain, denies palpitations. LUNGS: Denies cough, hemoptysis, wheezing or shortness of breath. GASTROINTESTINAL: Denies nausea, vomiting, abdominal pain. GENITOURINARY: Denies dysuria, frequency, urgency, hematuria. NEUROLOGIC: Denies history of numbness, tingling, tremor or weakness. PSYCHIATRIC: Denies anxiety, denies depression. ENDOCRINE: No history of heat or cold intolerance, polyuria or polydipsia. EXTREMITIES: Bilateral lower extremity weakness. Denies joint pain, pain on walking or stiffness. Physical Exam Physical Exam General: Alert, Oriented X3, Cooperative, No acute distress, obese HEENT: PERRLA, EOMI Lungs: Clear to auscultation, Normal air movement Heart: RRR, no murmurs Cardiovascular: S1, S2 Abdomen: Normal bowel sounds, Soft, No tenderness Extremities: Chronic venous stasis changes to bilateral lower extremities. No clubbing, No cyanosis Skin: No rashes, No significant lesion Neuro: Normal speech, Normal tone, Sensation intact Psych/Mental Status: Mental status NL, Mood NL Vitals Vitals Vital Signs Date Time Temp Pulse Resp B/P (MAP) Pulse Ox O2 Delivery O2 Flow Rate FiO2 02/22/20 06:00 Room Air 02/22/20 05:00 98.2 88 18 175/73 (107) 96 98.2 Labs Labs Laboratory Tests Test 02/22/20 03:14 White Blood Count 8.0 x10^3/uL (4.0-11.0) Red Blood Count 3.51 x10^6/uL (4.30-5.70) Hemoglobin 11.2 g/dL (13.0-17.5) Hematocrit 33.1 % (39.0-53.0) Mean Corpuscular Volume 94 fL (79-100) Mean Corpuscular Hemoglobin 32 pg (25-35) Mean Corpuscular Hemoglobin Concent 34 g/dL (31-37) Red Cell Distribution Width 16.6 % (11.5-14.5) Platelet Count 192 x10^3/uL (140-400) Neutrophils (%) (Auto) 74 % (31-73) Lymphocytes (%) (Auto) 14 % (24-48) Monocytes (%) (Auto) 5 % (0-9) Eosinophils (%) (Auto) 5 % (0-3) Basophils (%) (Auto) 1 % (0-3) Neutrophils # (Auto) 5.9 x10^3/uL (1.8-7.7) Lymphocytes # (Auto) 1.1 x10^3/uL (1.0-4.8) Monocytes # (Auto) 0.4 x10^3/uL (0.0-1.1) Eosinophils # (Auto) 0.4 x10^3/uL (0.0-0.7) Basophils # (Auto) 0.1 x10^3/uL (0.0-0.2) Sodium Level 134 mmol/L (136-145) Potassium Level 3.9 mmol/L (3.5-5.1) Chloride Level 95 mmol/L (98-107) Carbon Dioxide Level 31 mmol/L (21-32) Anion Gap 8 (6-14) Blood Urea Nitrogen 25 mg/dL (8-26) Creatinine 7.1 mg/dL (0.7-1.3) Estimated GFR (Cockcroft-Gault) 7.8 BUN/Creatinine Ratio 4 (6-20) Glucose Level 253 mg/dL (70-99) Calcium Level 9.6 mg/dL (8.5-10.1) Total Bilirubin 0.6 mg/dL (0.2-1.0) Aspartate Amino Transf (AST/SGOT) 28 U/L (15-37) Alanine Aminotransferase (ALT/SGPT) 28 U/L (16-63) Alkaline Phosphatase 67 U/L (46-116) Troponin I Quantitative < 0.017 ng/mL (0.000-0.055) Total Protein 8.6 g/dL (6.4-8.2) Albumin 2.9 g/dL (3.4-5.0) Albumin/Globulin Ratio 0.5 (1.0-1.7) Laboratory Tests Test 02/22/20 03:14 White Blood Count 8.0 x10^3/uL (4.0-11.0) Red Blood Count 3.51 x10^6/uL (4.30-5.70) Hemoglobin 11.2 g/dL (13.0-17.5) Hematocrit 33.1 % (39.0-53.0) Mean Corpuscular Volume 94 fL (79-100) Mean Corpuscular Hemoglobin 32 pg (25-35) Mean Corpuscular Hemoglobin Concent 34 g/dL (31-37) Red Cell Distribution Width 16.6 % (11.5-14.5) Platelet Count 192 x10^3/uL (140-400) Neutrophils (%) (Auto) 74 % (31-73) Lymphocytes (%) (Auto) 14 % (24-48) Monocytes (%) (Auto) 5 % (0-9) Eosinophils (%) (Auto) 5 % (0-3) Basophils (%) (Auto) 1 % (0-3) Neutrophils # (Auto) 5.9 x10^3/uL (1.8-7.7) Lymphocytes # (Auto) 1.1 x10^3/uL (1.0-4.8) Monocytes # (Auto) 0.4 x10^3/uL (0.0-1.1) Eosinophils # (Auto) 0.4 x10^3/uL (0.0-0.7) Basophils # (Auto) 0.1 x10^3/uL (0.0-0.2) Sodium Level 134 mmol/L (136-145) Potassium Level 3.9 mmol/L (3.5-5.1) Chloride Level 95 mmol/L (98-107) Carbon Dioxide Level 31 mmol/L (21-32) Anion Gap 8 (6-14) Blood Urea Nitrogen 25 mg/dL (8-26) Creatinine 7.1 mg/dL (0.7-1.3) Estimated GFR (Cockcroft-Gault) 7.8 BUN/Creatinine Ratio 4 (6-20) Glucose Level 253 mg/dL (70-99) Calcium Level 9.6 mg/dL (8.5-10.1) Total Bilirubin 0.6 mg/dL (0.2-1.0) Aspartate Amino Transf (AST/SGOT) 28 U/L (15-37) Alanine Aminotransferase (ALT/SGPT) 28 U/L (16-63) Alkaline Phosphatase 67 U/L (46-116) Troponin I Quantitative < 0.017 ng/mL (0.000-0.055) Total Protein 8.6 g/dL (6.4-8.2) Albumin 2.9 g/dL (3.4-5.0) Albumin/Globulin Ratio 0.5 (1.0-1.7) VTE Prophylaxis Ordered VTE Prophylaxis Devices: No VTE Pharmacological Prophylaxi: Yes Assessment/Plan Assessment/Plan Bilateral leg weakness Physical debility Type 2 diabetes with hyperglycemia Malnutrition Plan: We will admit patient and consult nephrology to continue his hemodialysis Consults wound care physician for chronic bilateral lower extremity wounds PT/OT We will arrange for home physical therapy or intake long term Resume home insulin basal/prandial regimen with high-dose sliding scale Resume home medications FEN - ADA diet PPX - warfarin FULL CODE Dispo - inpatient for above Justifications for Admission Other Justification Intractable pain, left lower extremity wound DENISE LOPEZ MD Feb 22, 2020 08:30
[2020-02-22] MEDS ORDERED: WARFARIN 5 MG TABLET. PO SCH (09:00)
[2020-02-22] MEDS: BACLOFEN 10 MG TABLET. PO SCH ×3 (09:51→21:12)
[2020-02-22] MEDS: LOSARTAN POTASSIUM 50 MG TABLET. PO SCH (09:51)
[2020-02-22] MEDS: VERAPAMIL 40 MG TABLET. PO SCH ×2 (09:52→21:11)
[2020-02-22 09:56] LABS: PROTHROMBIN TIME PATIENT 32.7 SEC (11.7-14.0)
[2020-02-22] MEDS: INSULIN LISPRO 300 UNITS/3 ML VIAL. SQ SCH ×4 (09:59→17:00)
[2020-02-22] MEDS: INSULIN GLARGINE SYRINGE. SQ SCH ×2 (09:59→21:18)
[2020-02-22] MEDS ORDERED: IV NORMAL SALINE 1000ML BAG 1,000 ML IV PRN ×2 (10:46)
[2020-02-22 11:00] VITALS: BP 140/59
[2020-02-22] MEDS ORDERED: ALBUMIN HUMAN 25% 200 ML IV PRN (11:00)
[2020-02-22] MEDS ORDERED: DIALYSIS PATIENT. MC PRN (11:00)
--- NOTE | 2020-02-22 13:18 | PDOC2 ---
CONSULT Date of Consult Date of Consult DATE: 02/22/20 TIME: 13:15 Reason for Consult Reason for Consult: ESRD Referring Physician Referring Physician: JESSICA Identification/Chief Complaint Chief Complaint WEAKNESS Source Source: Chart review History of Present Illness Reason for Visit: THIS IS A 64 YR OLD WITH ESRD. ON HD VIA AV ACCESS ON MWF. ADMITTED WITH LE WEAKNESS, HAD SIMILAR ISSUES IN TH PAST. STATES THAT HE HAS NOT BEEN ABLE TO DO OP PT. LABS ARE C/W ESRD Past Medical History Cardiovascular: HTN, Hyperlipidemia Pulmonary: COPD, Other GI: Constipation, Other Heme/Onc: Anemia NOS Renal/: Chronic renal failure Endocrine: Diabetes, Hyperparathyroidism Past Surgical History Past Surgical History: Colectomy, Colon Resection, Other Family History Family History: Cancer, Diabetes, Hypertension Social History Quit ALCOHOL: none Drugs: None Lives: with Family Current Problem List Problem List Problems Medical Problems: (1) Chronic kidney disease, stage IV (severe) Status: Acute (2) Inability to ambulate due to multiple joints Status: Acute Current Medications Current Medications Current Medications Acetaminophen (Tylenol) 500 mg PRN BID PRN PO MILD PAIN 1-3; Start 02/22/20 at 08:15 Baclofen (Lioresal) 5 mg TID PO Last administered on 02/22/20at 09:51; Start 02/22/20 at 09:00 Losartan Potassium (Cozaar) 25 mg DAILY PO Last administered on 02/22/20at 09:51; Start 02/22/20 at 09:00 Ondansetron HCl (Zofran Odt) 4 mg PRN BID PRN PO NAUSEA/VOMITING; Start 02/22/20 at 08:15 Temazepam (Restoril) 15 mg QHS PO ; Start 02/22/20 at 21:00 Warfarin Sodium (Coumadin) 5 mg DAILY PO ; Start 02/22/20 at 09:00; Stop 02/22/20 at 10:37; Status DC Insulin Glargine (Lantus Syringe) 35 unit BID SQ Last administered on 02/22/20at 09:59; Start 02/22/20 at 09:30 Insulin Human Lispro (HumaLOG) 50 units BIDACBL SQ Last administered on 02/22/20at 09:59; Start 02/22/20 at 09:00 Psyllium Hydrophilic Mucilloid (Metamucil Fiber Packet) 1 pkt PRN QHS PRN PO BOWEL PROGRAM; Start 02/22/20 at 21:00 Verapamil HCl (Calan) 160 mg BID PO Last administered on 02/22/20at 09:52; Start 02/22/20 at 09:15 Insulin Human Lispro (HumaLOG) 0-9 UNITS TIDWMEALS SQ ; Start 02/22/20 at 12:00 Dextrose (Dextrose 50%-Water Syringe) 12.5 gm PRN Q15MIN PRN IV SEE COMMENTS; Start 02/22/20 at 08:30 Ondansetron HCl (Zofran) 4 mg PRN Q6HRS PRN IVP NAUSEA/VOMITING; Start 02/22/20 at 08:30 Al Hydroxide/Mg Hydroxide (Mylanta Plus Xs) 30 ml PRN Q3HRS PRN PO HEARTBURN / GAS; Start 02/22/20 at 08:30 Calcium Carbonate/ Glycine (Tums) 500 mg PRN Q3HRS PRN PO UPSET STOMACH; Start 02/22/20 at 08:30 Zolpidem Tartrate (Ambien) 5 mg PRN QHS PRN PO INSOMNIA, MAY REPEAT IN 1HR; Start 02/22/20 at 08:30 Morphine Sulfate (Morphine Sulfate) 2 mg PRN Q1HR PRN IV PAIN; Start 02/22/20 at 08:30 Acetaminophen/ Hydrocodone Bitart (Lortab 5/325) 1 tab PRN Q4HRS PRN PO MILD PAIN 1-3; Start 02/22/20 at 08:30 Acetaminophen (Tylenol) 650 mg PRN Q6HRS PRN PO Headaches, Temp > 101.5F; Start 02/22/20 at 08:30 Magnesium Hydroxide (Milk Of Magnesia) 2,400 mg PRN Q12HR PRN PO CONSTIPATION; Start 02/22/20 at 08:30 Bisacodyl (Dulcolax Supp) 10 mg PRN DAILY PRN MO CONSTIPATION; Start 02/22/20 at 08:30 Warfarin Sodium (Coumadin Per Pharmacy) 1 each PRN DAILY PRN MC SEE COMMENTS; Start 02/22/20 at 08:45 Sodium Chloride 1,000 ml @ 1,000 mls/hr Q1H PRN IV hypotension; Start 02/22/20 at 10:46; Stop 02/22/20 at 16:45 Albumin Human 200 ml @ 200 mls/hr 1X PRN PRN IV Hypotension; Start 02/22/20 at 11:00; Stop 02/22/20 at 16:59 Sodium Chloride 1,000 ml @ 400 mls/hr Q2H30M PRN IV PATENCY; Start 02/22/20 at 10:46; Stop 02/22/20 at 22:45 Info (PHARMACY MONITORING -- do not chart) 1 each PRN DAILY PRN MC SEE COMMENTS; Start 02/22/20 at 11:00 Active Scripts Active Baclofen 10 Mg Tablet 5 Mg PO TID Zofran Odt (Ondansetron) 4 Mg Tab.rapdis 4 Mg PO BID PRN Reported Metamucil (Psyllium Husk) 0.52 Gm Capsule 1 Cap PO HS PRN 30 Days Temazepam 15 Mg Capsule 1 Cap PO QHS Losartan Potassium 50 Mg Tablet 25 Mg PO DAILY Verapamil Hcl 80 Mg Tablet 2 Tab PO BID Humalog (Insulin Lispro) 100 Unit/1 Ml Vial 60 Unit SQ DAILYWSUP Lantus Solostar (Insulin Glargine,Hum.rec.anlog) 100 Unit/1 Ml Insuln.pen 35 Unit SQ BIDAC PRN Acetaminophen 500 Mg Tablet 1 Tab PO BID PRN Renal Vitamin Tablet (Folic Acid/Vit Bcomp,C) 0.8 Mg Tablet 0.8 Mg PO DAILY Humalog (Insulin Lispro) 100 Unit/1 Ml Insuln.pen 50 Unit SQ BIDACBL Warfarin Sodium 5 Mg Tablet 5 Mg PO DAILY Allergies Allergies: Coded Allergies: No Known Drug Allergies (Unverified , 09/27/19) ROS General: YES: Fatigue, Malaise Eyes: Yes Decreased vision HEENT: YES: Heacaches Respiratory: YES: Cough Gastrointestinal: Yes Constipation Genitourinary: YES Other (ANURIA) Musculoskeletal: Yes Muscular Weakness Neurological: Yes Weakness Skin: Yes Dry Skin Physical Exam General: Alert, Cooperative, No acute distress HEENT: PERRLA Lungs: Clear to auscultation Heart: Regular rate Abdomen: Normal bowel sounds Extremities: No clubbing Neuro: Normal speech Psych/Mental Status: Mental status NL MUSCULOSKELETAL: No deformity, No swelling Vitals VITALS Vital Signs Date Time Temp Pulse Resp B/P (MAP) Pulse Ox O2 Delivery O2 Flow Rate FiO2 02/22/20 11:00 98.1 76 19 140/59 (86) 92 Room Air 98.1 Labs Labs Laboratory Tests Test 02/22/20 03:14 02/22/20 09:30 White Blood Count 8.0 x10^3/uL (4.0-11.0) Red Blood Count 3.51 x10^6/uL (4.30-5.70) Hemoglobin 11.2 g/dL (13.0-17.5) Hematocrit 33.1 % (39.0-53.0) Mean Corpuscular Volume 94 fL (79-100) Mean Corpuscular Hemoglobin 32 pg (25-35) Mean Corpuscular Hemoglobin Concent 34 g/dL (31-37) Red Cell Distribution Width 16.6 % (11.5-14.5) Platelet Count 192 x10^3/uL (140-400) Neutrophils (%) (Auto) 74 % (31-73) Lymphocytes (%) (Auto) 14 % (24-48) Monocytes (%) (Auto) 5 % (0-9) Eosinophils (%) (Auto) 5 % (0-3) Basophils (%) (Auto) 1 % (0-3) Neutrophils # (Auto) 5.9 x10^3/uL (1.8-7.7) Lymphocytes # (Auto) 1.1 x10^3/uL (1.0-4.8) Monocytes # (Auto) 0.4 x10^3/uL (0.0-1.1) Eosinophils # (Auto) 0.4 x10^3/uL (0.0-0.7) Basophils # (Auto) 0.1 x10^3/uL (0.0-0.2) Sodium Level 134 mmol/L (136-145) Potassium Level 3.9 mmol/L (3.5-5.1) Chloride Level 95 mmol/L (98-107) Carbon Dioxide Level 31 mmol/L (21-32) Anion Gap 8 (6-14) Blood Urea Nitrogen 25 mg/dL (8-26) Creatinine 7.1 mg/dL (0.7-1.3) Estimated GFR (Cockcroft-Gault) 7.8 BUN/Creatinine Ratio 4 (6-20) Glucose Level 253 mg/dL (70-99) Calcium Level 9.6 mg/dL (8.5-10.1) Total Bilirubin 0.6 mg/dL (0.2-1.0) Aspartate Amino Transf (AST/SGOT) 28 U/L (15-37) Alanine Aminotransferase (ALT/SGPT) 28 U/L (16-63) Alkaline Phosphatase 67 U/L (46-116) Troponin I Quantitative < 0.017 ng/mL (0.000-0.055) Total Protein 8.6 g/dL (6.4-8.2) Albumin 2.9 g/dL (3.4-5.0) Albumin/Globulin Ratio 0.5 (1.0-1.7) Prothrombin Time 32.7 SEC (11.7-14.0) Prothromb Time International Ratio 3.2 (0.8-1.1) Laboratory Tests Test 02/22/20 03:14 02/22/20 09:30 White Blood Count 8.0 x10^3/uL (4.0-11.0) Red Blood Count 3.51 x10^6/uL (4.30-5.70) Hemoglobin 11.2 g/dL (13.0-17.5) Hematocrit 33.1 % (39.0-53.0) Mean Corpuscular Volume 94 fL (79-100) Mean Corpuscular Hemoglobin 32 pg (25-35) Mean Corpuscular Hemoglobin Concent 34 g/dL (31-37) Red Cell Distribution Width 16.6 % (11.5-14.5) Platelet Count 192 x10^3/uL (140-400) Neutrophils (%) (Auto) 74 % (31-73) Lymphocytes (%) (Auto) 14 % (24-48) Monocytes (%) (Auto) 5 % (0-9) Eosinophils (%) (Auto) 5 % (0-3) Basophils (%) (Auto) 1 % (0-3) Neutrophils # (Auto) 5.9 x10^3/uL (1.8-7.7) Lymphocytes # (Auto) 1.1 x10^3/uL (1.0-4.8) Monocytes # (Auto) 0.4 x10^3/uL (0.0-1.1) Eosinophils # (Auto) 0.4 x10^3/uL (0.0-0.7) Basophils # (Auto) 0.1 x10^3/uL (0.0-0.2) Sodium Level 134 mmol/L (136-145) Potassium Level 3.9 mmol/L (3.5-5.1) Chloride Level 95 mmol/L (98-107) Carbon Dioxide Level 31 mmol/L (21-32) Anion Gap 8 (6-14) Blood Urea Nitrogen 25 mg/dL (8-26) Creatinine 7.1 mg/dL (0.7-1.3) Estimated GFR (Cockcroft-Gault) 7.8 BUN/Creatinine Ratio 4 (6-20) Glucose Level 253 mg/dL (70-99) Calcium Level 9.6 mg/dL (8.5-10.1) Total Bilirubin 0.6 mg/dL (0.2-1.0) Aspartate Amino Transf (AST/SGOT) 28 U/L (15-37) Alanine Aminotransferase (ALT/SGPT) 28 U/L (16-63) Alkaline Phosphatase 67 U/L (46-116) Troponin I Quantitative < 0.017 ng/mL (0.000-0.055) Total Protein 8.6 g/dL (6.4-8.2) Albumin 2.9 g/dL (3.4-5.0) Albumin/Globulin Ratio 0.5 (1.0-1.7) Prothrombin Time 32.7 SEC (11.7-14.0) Prothromb Time International Ratio 3.2 (0.8-1.1) Assessment/Plan Assessment/Plan IMP DECONDITIONING ANEMIA ESRD HTN NON COMPLIANCE PLAN HD TODAY UF TO DW ENC COMPLIANCE PT WILL FOLLOW GALEN BOTELLO MD Feb 22, 2020 13:18
--- NOTE | 2020-02-22 14:51 | NUR ---
Pharmacy Warfarin Dosing Note S:Pharmacy consulted to assist with anticoagulation therapy started with target INR: 2 -3 O:ELENITA SHEPHERD is a 64 year old M with DVT/PE RECURRENT DVTS, HAS IVC FILTER LABS: Last INR: 3.2 Last HGB: 11.2 Last HCT: 33.1 Last PLT: 192 Previous Regimen: 5MG DAILY A:INR of 3.2 is above desired range. Target range for this patient is: 2 -3 P: Warfarin dose: Hold Today at 1600 Bridge Therapy: None Next INR due 02/23/20. Pharmacy anticoagulation service will continue to follow. DYLON DE LOS SANTOS [facility], 02/22/20 0112
--- NOTE | 2020-02-22 15:45 | NUR ---
Wound/Ostomy Care Wound Type/Assessment: Patient seen per wound care consult. See wound assessment. Patient is well known to us from the wound clinic. patient has a DFU to the right heel and a stage II pressure ulcer to the right buttock. Patient states he uses calazime at home for the buttock wound and he states he sits in his chair at home frequently. Treatment Recommendations/Plan: Recommendations for Hydrofera Blue, ABD pad, and kerlix to the right heel. Then a medi-mushroom cultivator applied to the right leg. Hydrofera Blue left with patient for next dressing change. Calazime ointment to the buttock. Education provided: Patient educated on turning and staying off right buttock. Patient is able to turn independently. Offloading surface/device: Patient wears heel relief shoe on right foot when ambulating. Recommended Referrals/Tests: Discharge Recommendations for dressings: Dressing change instructions left in room. No other wounds noted. Will follow patient regarding wound care.
[2020-02-22 19:00] VITALS: BP 96/60
[2020-02-22] MEDS ORDERED: PSYLLIUM HUSK (SUGAR FREE) 1 PKT PACKET PO PRN (21:00)
--- NOTE | 2020-02-22 21:10 | NUR ---
Patient using own glucose monitoring system and reports blood glucose at 107 for the evening. Addendum: 02/22/20 at 2338 by ELAN BARAJAS RN MD aware of patient not allowing staff to use hospital blood glucometer monitoring device.
[2020-02-22] MEDS: TEMAZEPAM 15 MG CAPSULE PO SCH (21:12)
[2020-02-22 23:00] VITALS: BP 128/58
[2020-02-23 03:00] VITALS: BP 117/51
[2020-02-23 06:00] LABS: PROTHROMBIN TIME PATIENT 28.2 SEC (11.7-14.0)
[2020-02-23 07:00] VITALS: BP 109/50
[2020-02-23] MEDS: INSULIN LISPRO 300 UNITS/3 ML VIAL. SQ SCH ×5 (07:30→17:00)
[2020-02-23] MEDS: BACLOFEN 10 MG TABLET. PO SCH ×3 (08:41→20:46)
[2020-02-23] MEDS: LOSARTAN POTASSIUM 50 MG TABLET. PO SCH (08:41)
[2020-02-23] MEDS: VERAPAMIL 40 MG TABLET. PO SCH ×2 (08:41→20:46)
[2020-02-23] MEDS: INSULIN GLARGINE SYRINGE. SQ SCH ×2 (09:00→20:52)
--- NOTE | 2020-02-23 09:25 | PDOC ---
[employer] PROGRESS NOTE Date of Service DOS: DATE: 02/23/20 TIME: 09:23 History of Present Illness History of Present Illness Patient is 64-year-old male past medical history end-stage renal disease, who complains of ER with complaints of worsening bilateral lower extremity weakness for the past month. Patient states he is normally able to ambulate with his walker, recently reports difficulty able to get out of his chair. States he was told to start outpatient physical therapy recently, but has been unable to get a ride to his appointment. Patient denies any recent fevers, chills, shortness of breath. 02/22: Patient seen with with physical therapy this morning. Reportedly his heart has been fixed, and he is able to resume outpatient physical therapy. Patient is refusing SNF. No new complaints. Vitals/I&O Vitals/I&O: Vital Signs Date Time Temp Pulse Resp B/P (MAP) Pulse Ox O2 Delivery O2 Flow Rate FiO2 02/23/20 08:41 75 109/50 02/23/20 07:00 97.9 19 95 Room Air 97.9 I & O 02/22/20 02/22/20 02/23/20 15:00 23:00 07:00 Intake Total 240 ml 540 ml 0 ml Balance 240 ml 540 ml 0 ml Physical Exam General: Alert, Cooperative, No acute distress Heart: Regular rate Lungs: Clear, Crackles Abdomen: Normal bowel sounds Extremities: No clubbing Labs Labs: Laboratory Tests Test 02/22/20 09:30 02/23/20 03:36 Prothrombin Time 32.7 SEC (11.7-14.0) 28.2 SEC (11.7-14.0) Prothromb Time International Ratio 3.2 (0.8-1.1) 2.6 (0.8-1.1) Review of Systems Review of Systems: Denies fever, denies shortness of breath, denies chest pain. Assessment and Plan Assessmemt and Plan Problems Medical Problems: (1) Chronic kidney disease, stage IV (severe) Status: Acute (2) Inability to ambulate due to multiple joints Status: Acute Comment Review of Relevant I have reviewed the following items joyce (where applicable) has been applied. Medications: Current Medications Medications (Trade) Dose Ordered Sig/Cristian Route PRN Reason Start Time Stop Time Status Last Admin Dose Admin Temazepam (Restoril) 15 mg QHS PO 02/22/20 21:00 02/22/20 21:12 Insulin Glargine (Lantus Syringe) 35 unit BID SQ 02/22/20 09:30 02/22/20 21:18 Warfarin Sodium (Coumadin - No Dose Today) 1 each 1X WARF ONCE MC 02/22/20 16:00 02/22/20 16:01 DC 02/22/20 16:00 Justifications for Admission Other Justification Intractable pain, left lower extremity wound DENISE LOPEZ MD Feb 23, 2020 09:25
[2020-02-23 11:00] VITALS: BP 136/60
--- NOTE | 2020-02-23 11:44 | PDOC ---
Renal-Progress Notes Subjective Notes Notes NO CHANGES History of Present Illness Hx of present illness STABLE Vitals Vitals Vital Signs Date Time Temp Pulse Resp B/P (MAP) Pulse Ox O2 Delivery O2 Flow Rate FiO2 02/23/20 08:41 75 109/50 02/23/20 08:00 Room Air 02/23/20 07:00 97.9 19 95 97.9 Weight Weight [ ] I.O. Intake and Output Intake and Output 02/23/20 07:00 Intake Total 780 ml Balance 780 ml Intake Oral 780 ml Labs Labs Laboratory Tests Test 02/23/20 03:36 Prothrombin Time 28.2 SEC (11.7-14.0) Prothromb Time International Ratio 2.6 (0.8-1.1) Review of Systems Constitutional: yes: weakness, alert Ears/Nose/Throat: Yes: no symptom reported Eyes: Yes: no symptom reported Pulmonary: Yes no symptom reported Cardiovascular: Yes no symptom reported Gastrointestional: Yes: no symptom reported Genitourinary: Yes: no symptom reported Musculoskeletal: Yes: no symptom reported Skin: Yes no symptom reported Psychiatric/Neurological: Yes: no symptom reported Endocrine: Yes: no symptom reported Physical Exam General Appearance: no apparent distress Skin: warm Heart: S1S2 Abdomen: soft, bowel sounds present Extremities: pulses present Neurology: alert Assessment Assessment IMP DECONDITIONING ANEMIA ESRD HTN NON COMPLIANCE PLAN HD TOMORROW ENC COMPLIANCE PT WILL FOLLOW GALEN BOTELLO MD Feb 23, 2020 11:44
--- NOTE | 2020-02-23 12:31 | PDOC ---
[employer] PROGRESS NOTE Date of Service DOS: DATE: 02/23/20 TIME: 12:30 Chief Complaint Chief Complaint Bilateral leg weakness Physical debility Type 2 diabetes with hyperglycemia Malnutrition Plan: We will admit patient and consult nephrology to continue his hemodialysis Consults wound care physician for chronic bilateral lower extremity wounds PT/OT We will arrange for home physical therapy or intake [facility] Resume home insulin basal/prandial regimen with high-dose sliding scale Resume home medications FEN - ADA diet PPX - warfarin FULL CODE Dispo - inpatient for above History of Present Illness History of Present Illness Patient is 64-year-old male past medical history end-stage renal disease, who complains of ER with complaints of worsening bilateral lower extremity weakness for the past month. Patient states he is normally able to ambulate with his walker, recently reports difficulty able to get out of his chair. States he was told to start outpatient physical therapy recently, but has been unable to get a ride to his appointment. Patient denies any recent fevers, chills, shortness of breath. 02/22: Patient seen with with physical therapy this morning. Reportedly his heart has been fixed. is at bedside and is adamant about patient going to [facility] for inpatient physical therapy. Patient is finally agreeable to SNF. Vitals/I&O Vitals/I&O: Vital Signs Date Time Temp Pulse Resp B/P (MAP) Pulse Ox O2 Delivery O2 Flow Rate FiO2 02/23/20 11:00 97.6 82 19 136/60 (85) 96 Room Air 97.6 I & O 02/22/20 02/22/20 02/23/20 15:00 23:00 07:00 Intake Total 240 ml 540 ml 0 ml Balance 240 ml 540 ml 0 ml Physical Exam General: Alert, Cooperative, No acute distress Heart: Regular rate Lungs: Clear, Crackles Abdomen: Normal bowel sounds Extremities: No clubbing Labs Labs: Laboratory Tests Test 02/23/20 03:36 Prothrombin Time 28.2 SEC (11.7-14.0) Prothromb Time International Ratio 2.6 (0.8-1.1) Review of Systems Review of Systems: Denies fever, denies nausea, denies chest pain. Assessment and Plan Assessmemt and Plan Problems Medical Problems: (1) Chronic kidney disease, stage IV (severe) Status: Acute (2) Inability to ambulate due to multiple joints Status: Acute Comment Review of Relevant I have reviewed the following items joyce (where applicable) has been applied. Medications: Current Medications Medications (Trade) Dose Ordered Sig/Cristian Route PRN Reason Start Time Stop Time Status Last Admin Dose Admin Temazepam (Restoril) 15 mg QHS PO 02/22/20 21:00 02/22/20 21:12 Warfarin Sodium (Coumadin - No Dose Today) 1 each 1X WARF ONCE MC 02/22/20 16:00 02/22/20 16:01 DC 02/22/20 16:00 Justifications for Admission Other Justification Intractable pain, left lower extremity wound DENISE LOPEZ MD Feb 23, 2020 12:31
[2020-02-23 14:56] VITALS: BP 110/49
--- NOTE | 2020-02-23 15:45 | NUR ---
Pharmacy Warfarin Dosing Note S: Pharmacy consulted to assist with anticoagulation therapy started O: ELENITA SHEPHERD is a 64 year old M with DVT/PE RECURRENT DVTS, HAS IVC FILTER LABS: Last INR: 2.6 Last HGB: 11.2 Last HCT: 33.1 Last PLT: 192 Last dose of Hold given on 02/22/20 at 1600 Vitamin K given: N A:INR of 2.6 is within desired range. Target range for this patient is: 2 -3 P: Warfarin dose: 5 mg Today at 1600 Bridge Therapy: None Next INR due tomorrow Pharmacy anticoagulation service will continue to follow. uLz Dolan Philipp, 02/23/20 [id number]
[2020-02-23] MEDS ORDERED: WARFARIN 5 MG TABLET. PO ONE (16:00)
[2020-02-23 19:07] VITALS: BP 136/59
[2020-02-23] MEDS: TEMAZEPAM 15 MG CAPSULE PO SCH (20:46)
[2020-02-23 23:15] VITALS: BP 143/61
[2020-02-24 03:04] VITALS: BP 131/55
[2020-02-24 04:52] LABS: PROTHROMBIN TIME PATIENT 25.1 SEC (11.7-14.0)
[2020-02-24 07:00] VITALS: BP 139/76
[2020-02-24] MEDS: INSULIN LISPRO 300 UNITS/3 ML VIAL. SQ SCH ×5 (07:30→17:28)
[2020-02-24] MEDS ORDERED: IV NORMAL SALINE 1000ML BAG 1,000 ML IV PRN ×2 (07:50)
[2020-02-24] MEDS ORDERED: diphenhydrAMINE 50 MG/ML VIAL IV PRN ×2 (08:00)
[2020-02-24] MEDS ORDERED: DIALYSIS PATIENT. MC PRN (08:00)
[2020-02-24] MEDS: VERAPAMIL 40 MG TABLET. PO SCH ×2 (09:00→21:27)
[2020-02-24] MEDS: LOSARTAN POTASSIUM 50 MG TABLET. PO SCH (09:00)
[2020-02-24] MEDS: BACLOFEN 10 MG TABLET. PO SCH ×3 (09:00→21:26)
[2020-02-24] MEDS: INSULIN GLARGINE SYRINGE. SQ SCH ×2 (09:00→21:29)
--- NOTE | 2020-02-24 09:14 | NUR ---
patient refused to have a daily weight. Addendum: 02/24/20 at 0917 by LAZARA DOMINIQUE RN RN Amended: Links added.
--- NOTE | 2020-02-24 11:29 | PDOC ---
Renal-Progress Notes Subjective Notes Notes NO NEW COMPLAINTS History of Present Illness Hx of present illness STABLE Vitals Vitals Vital Signs Date Time Temp Pulse Resp B/P (MAP) Pulse Ox O2 Delivery O2 Flow Rate FiO2 02/24/20 07:00 98.3 74 18 139/76 (97) 95 Room Air 98.3 Weight Weight [ ] I.O. Intake and Output Intake and Output 02/24/20 07:00 Intake Total 3450 ml Balance 3450 ml Intake Oral 3450 ml # Bowel Movements 3 Labs Labs Laboratory Tests Test 02/23/20 20:20 02/24/20 04:15 Glucose (Fingerstick) 238 mg/dL (70-99) Prothrombin Time 25.1 SEC (11.7-14.0) Prothromb Time International Ratio 2.3 (0.8-1.1) Review of Systems Constitutional: yes: weakness, alert Ears/Nose/Throat: Yes: no symptom reported Eyes: Yes: no symptom reported Pulmonary: Yes no symptom reported Cardiovascular: Yes no symptom reported Gastrointestional: Yes: no symptom reported Genitourinary: Yes: no symptom reported Musculoskeletal: Yes: no symptom reported Skin: Yes no symptom reported Psychiatric/Neurological: Yes: no symptom reported Endocrine: Yes: no symptom reported Physical Exam General Appearance: no apparent distress Skin: warm Heart: S1S2 Abdomen: soft, bowel sounds present Extremities: pulses present Neurology: alert Assessment Assessment IMP DECONDITIONING ANEMIA ESRD HTN NON COMPLIANCE PLAN HD TODAY UF TO TW ENC COMPLIANCE PT WILL FOLLOW GLAEN BOTELLO MD Feb 24, 2020 11:29
--- NOTE | 2020-02-24 14:57 | PDOC ---
[employer] PROGRESS NOTE Date of Service DOS: DATE: 02/24/20 TIME: 14:54 Chief Complaint Chief Complaint Bilateral leg weakness Physical debility Type 2 diabetes with hyperglycemia Malnutrition Plan: We will admit patient and consult nephrology to continue his hemodialysis Consults wound care physician for chronic bilateral lower extremity wounds PT/OT We will arrange for home physical therapy or intake long-term Resume home insulin basal/prandial regimen with high-dose sliding scale Resume home medications FEN - ADA diet PPX - warfarin FULL CODE Dispo - inpatient for above History of Present Illness History of Present Illness Patient is 64-year-old male past medical history end-stage renal disease, who complains of ER with complaints of worsening bilateral lower extremity weakness for the past month. Patient states he is normally able to ambulate with his walker, recently reports difficulty able to get out of his chair. States he was told to start outpatient physical therapy recently, but has been unable to get a ride to his appointment. Patient denies any recent fevers, chills, shortness of breath. 02/22: Patient seen with with physical therapy this morning. Reportedly his heart has been fixed. is at bedside and is adamant about patient going to long-term for inpatient physical therapy. Patient is finally agreeable to SNF. 02/23: Patient seen and evaluated bedside. He states he does not feel well, complaining of shortness of breath and bilateral hand pain, cramping in nature. He has history of similar pain when he has too much fluid removed from hemodialysis, and states he had roughly 6 L removed today. Patient is currently breathing on supplemental oxygen by nasal cannula. He is afebrile, denies chest pain, denies nausea. Will obtain chest x-ray. I do believe patient would benefit from inpatient long-term, and is adamant that he will not come home until he receives SNF. Vitals/I&O Vitals/I&O: Vital Signs Date Time Temp Pulse Resp B/P (MAP) Pulse Ox O2 Delivery O2 Flow Rate FiO2 02/24/20 08:00 Room Air 02/24/20 07:00 98.3 74 18 139/76 (97) 95 98.3 I & O 02/23/20 02/23/20 02/24/20 15:00 23:00 07:00 Intake Total 600 ml 1150 ml 1700 ml Balance 600 ml 1150 ml 1700 ml Physical Exam General: Alert, Cooperative, No acute distress Heart: Regular rate Lungs: Clear, Crackles Abdomen: Normal bowel sounds Extremities: No clubbing Labs Labs: Laboratory Tests Test 02/23/20 20:20 02/24/20 04:15 Glucose (Fingerstick) 238 mg/dL (70-99) Prothrombin Time 25.1 SEC (11.7-14.0) Prothromb Time International Ratio 2.3 (0.8-1.1) Review of Systems Review of Systems: Shortness of breath, bilateral hand pain. Denies fever, denies nausea, denies chest pain. Assessment and Plan Assessmemt and Plan Problems Medical Problems: (1) Chronic kidney disease, stage IV (severe) Status: Acute (2) Inability to ambulate due to multiple joints Status: Acute Comment Review of Relevant I have reviewed the following items joyce (where applicable) has been applied. Medications: Current Medications Medications (Trade) Dose Ordered Sig/Cristian Route PRN Reason Start Time Stop Time Status Last Admin Dose Admin Warfarin Sodium (Coumadin) 5 mg 1X WARF ONCE PO 02/23/20 16:00 02/23/20 16:01 DC 02/23/20 17:12 Justifications for Admission Other Justification Intractable pain, left lower extremity wound DENISE LOPEZ MD Feb 24, 2020 14:56
[2020-02-24 15:00] VITALS: BP 145/63
[2020-02-24 15:18] LABS: BASO # 0.1 x10^3/uL (0.0-0.2); BASO % 1 % (0-3); EOS # 0.4 x10^3/uL (0.0-0.7); EOS % 6 % (0-3); HEMATOCRIT 34.9 % (39.0-53.0); HEMOGLOBIN 11.1 g/dL (13.0-17.5); LYMPH # 1.4 x10^3/uL (1.0-4.8); LYMPH % 19 % (24-48); MEAN CORPUSCULAR HEMOGLOBIN 31 pg (25-35); MEAN CORPUSCULAR HGB CONC 32 g/dL (31-37); MEAN CORPUSCULAR VOLUME 96 fL (79-100); MONO # 0.4 x10^3/uL (0.0-1.1); MONO % 5 % (0-9); NEUT # 5.2 x10^3/uL (1.8-7.7); NEUT % 69 % (31-73); PLATELET COUNT 273 x10^3/uL (140-400); RED BLOOD COUNT 3.63 x10^6/uL (4.30-5.70); RED CELL DISTRIBUTION WIDTH 16.7 % (11.5-14.5); WHITE BLOOD COUNT 7.5 x10^3/uL (4.0-11.0)
[2020-02-24] MEDS ORDERED: WARFARIN 5 MG TABLET. PO ONE (16:00)
--- NOTE | 2020-02-24 16:28 | RAD ---
Chest one view HISTORY: Shortness of breath Comparison December 03, 2019 Bilateral infiltrates have improved with no evidence of acute infiltrate on the current study. Heart and pulmonary vasculature appear within normal limits. No effusion or pneumothorax is seen. IMPRESSION: No acute chest process Electronically signed by: Israel Anderson MD (02/24/2020 4:25 PM) [id number]
[2020-02-24 19:00] VITALS: BP 120/86
[2020-02-24] MEDS: TEMAZEPAM 15 MG CAPSULE PO SCH (21:26)
[2020-02-24 23:00] VITALS: BP 87/44
[2020-02-25 03:00] VITALS: BP 112/51
[2020-02-25 04:48] LABS: PROTHROMBIN TIME PATIENT 25.4 SEC (11.7-14.0)
[2020-02-25 04:53] LABS: POTASSIUM 4.6 mmol/L (3.5-5.1)
[2020-02-25 07:00] VITALS: BP 118/54
[2020-02-25] MEDS: INSULIN LISPRO 300 UNITS/3 ML VIAL. SQ SCH ×5 (07:30→17:00)
[2020-02-25] MEDS: INSULIN GLARGINE SYRINGE. SQ SCH ×2 (08:24→20:38)
[2020-02-25] MEDS: BACLOFEN 10 MG TABLET. PO SCH ×3 (08:25→20:30)
--- NOTE | 2020-02-25 09:40 | PDOC ---
[facility] PROGRESS NOTE Date of Service DOS: DATE: 02/25/20 TIME: 09:37 Chief Complaint Chief Complaint Bilateral leg weakness Physical debility Type 2 diabetes with hyperglycemia Malnutrition Plan: We will admit patient and consult nephrology to continue his hemodialysis Consults wound care physician for chronic bilateral lower extremity wounds PT/OT We will arrange for home physical therapy or intake fdc Resume home insulin basal/prandial regimen with high-dose sliding scale Resume home medications FEN - ADA diet PPX - warfarin FULL CODE Dispo - inpatient for above History of Present Illness History of Present Illness Patient is 64-year-old male past medical history end-stage renal disease, who complains of ER with complaints of worsening bilateral lower extremity weakness for the past month. Patient states he is normally able to ambulate with his walker, recently reports difficulty able to get out of his chair. States he was told to start outpatient physical therapy recently, but has been unable to get a ride to his appointment. Patient denies any recent fevers, chills, shortness of breath. 02/22: Patient seen with with physical therapy this morning. Reportedly his heart has been fixed. is at bedside and is adamant about patient going to fdc for inpatient physical therapy. Patient is finally agreeable to SNF. 02/23: Patient seen and evaluated bedside. He states he does not feel well, complaining of shortness of breath and bilateral hand pain, cramping in nature. He has history of similar pain when he has too much fluid removed from hemodialysis, and states he had roughly 6 L removed today. Patient is currently breathing on supplemental oxygen by nasal cannula. He is afebrile, denies chest pain, denies nausea. Will obtain chest x-ray. I do believe patient would benefit from inpatient fdc, and is adamant that he will not come home until he receives SNF. 02/24: Patient with some shortness of breath and hand cramping yesterday after hemodialysis, but has resolved. Chest x-ray shows no acute process. Plan is inpatient fdc, hopefully on Thursday. Patient's is requesting that she is updated when he is transferred to SNF. Vitals/I&O Vitals/I&O: Vital Signs Date Time Temp Pulse Resp B/P (MAP) Pulse Ox O2 Delivery O2 Flow Rate FiO2 02/25/20 07:00 97.7 76 18 118/54 (75) 92 Nasal Cannula 97.7 02/25/20 03:00 2.0 I & O 02/24/20 02/24/20 02/25/20 15:00 23:00 07:00 Intake Total 240 ml 800 ml Balance 240 ml 800 ml Physical Exam General: Alert, Cooperative, No acute distress Heart: Regular rate Lungs: Clear, Crackles Abdomen: Normal bowel sounds Extremities: No clubbing Labs Labs: Laboratory Tests Test 02/25/20 03:40 Prothrombin Time 25.4 SEC (11.7-14.0) Prothromb Time International Ratio 2.3 (0.8-1.1) Sodium Level 130 mmol/L (136-145) Potassium Level 4.6 mmol/L (3.5-5.1) Chloride Level 93 mmol/L (98-107) Carbon Dioxide Level 27 mmol/L (21-32) Anion Gap 10 (6-14) Blood Urea Nitrogen 31 mg/dL (8-26) Creatinine 7.0 mg/dL (0.7-1.3) Estimated GFR (Cockcroft-Gault) 8.0 Glucose Level 215 mg/dL (70-99) Calcium Level 9.0 mg/dL (8.5-10.1) Review of Systems Review of Systems: Denies fever, denies chest pain, denies abdominal pain Assessment and Plan Assessmemt and Plan Problems Medical Problems: (1) Chronic kidney disease, stage IV (severe) Status: Acute (2) Inability to ambulate due to multiple joints Status: Acute Comment Review of Relevant I have reviewed the following items joyce (where applicable) has been applied. Medications: Current Medications Medications (Trade) Dose Ordered Sig/Cristian Route PRN Reason Start Time Stop Time Status Last Admin Dose Admin Warfarin Sodium (Coumadin) 5 mg 1X WARF ONCE PO 02/24/20 16:00 02/24/20 16:01 DC 02/24/20 17:25 Justifications for Admission Other Justification Intractable pain, left lower extremity wound DENISE LOPEZ MD Feb 25, 2020 09:40
[2020-02-25 11:00] VITALS: BP 146/76
[2020-02-25] MEDS: LOSARTAN POTASSIUM 50 MG TABLET. PO SCH (12:26)
[2020-02-25] MEDS: VERAPAMIL 40 MG TABLET. PO SCH ×2 (12:27→20:30)
--- NOTE | 2020-02-25 12:50 | NUR ---
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 Target range for this patient is: 2 -3 P: Warfarin dose: 5 mg Today at 1600 Bridge Therapy: None Next INR due 02/25 AM Pharmacy anticoagulation service will continue to follow. MAXIME MOREIRA RP, 02/25/20 [id number]
[2020-02-25 15:00] VITALS: BP 104/60
--- NOTE | 2020-02-25 15:08 | PDOC ---
Renal-Progress Notes Subjective Notes Notes NO NEW COMPLAINTS History of Present Illness Hx of present illness STABLE Vitals Vitals Vital Signs Date Time Temp Pulse Resp B/P (MAP) Pulse Ox O2 Delivery O2 Flow Rate FiO2 02/25/20 12:27 77 146/76 02/25/20 11:00 98.0 18 95 Room Air 98.0 02/25/20 03:00 2.0 Weight Weight [ ] I.O. Intake and Output Intake and Output 02/25/20 07:00 Intake Total 1040 ml Balance 1040 ml Intake Oral 1040 ml # Bowel Movements 6 Labs Labs Laboratory Tests Test 02/25/20 03:40 02/25/20 10:48 Prothrombin Time 25.4 SEC (11.7-14.0) Prothromb Time International Ratio 2.3 (0.8-1.1) Sodium Level 130 mmol/L (136-145) Potassium Level 4.6 mmol/L (3.5-5.1) Chloride Level 93 mmol/L (98-107) Carbon Dioxide Level 27 mmol/L (21-32) Anion Gap 10 (6-14) Blood Urea Nitrogen 31 mg/dL (8-26) Creatinine 7.0 mg/dL (0.7-1.3) Estimated GFR (Cockcroft-Gault) 8.0 Glucose Level 215 mg/dL (70-99) Calcium Level 9.0 mg/dL (8.5-10.1) Glucose (Fingerstick) 232 mg/dL (70-99) Review of Systems Constitutional: yes: weakness, alert Ears/Nose/Throat: Yes: no symptom reported Eyes: Yes: no symptom reported Pulmonary: Yes no symptom reported Cardiovascular: Yes no symptom reported Gastrointestional: Yes: no symptom reported Genitourinary: Yes: no symptom reported Musculoskeletal: Yes: no symptom reported Skin: Yes no symptom reported Psychiatric/Neurological: Yes: no symptom reported Endocrine: Yes: no symptom reported Physical Exam General Appearance: no apparent distress Skin: warm Heart: S1S2 Abdomen: soft, bowel sounds present Extremities: pulses present Neurology: alert Assessment Assessment IMP DECONDITIONING ANEMIA ESRD HTN NON COMPLIANCE PLAN HD THURSDAY ENC COMPLIANCE PT WILL FOLLOW GALEN BOTELLO MD Feb 25, 2020 15:08
[2020-02-25] MEDS ORDERED: WARFARIN 5 MG TABLET. PO SCH (16:00)
[2020-02-25 19:15] VITALS: BP 110/49
[2020-02-25] MEDS: TEMAZEPAM 15 MG CAPSULE PO SCH (20:30)
--- NOTE | 2020-02-25 20:30 | NUR ---
Patient using own glucose monitoring system and reports blood glucose at 130 for the evening.
[2020-02-25 22:59] VITALS: BP 142/66
[2020-02-26 03:00] VITALS: BP 116/64
[2020-02-26 04:36] LABS: CALCIUM 9.3 mg/dL (8.5-10.1); CREATININE 8.4 mg/dL (0.7-1.3); GFR 6.5
[2020-02-26 04:41] LABS: PROTHROMBIN TIME PATIENT 26.8 SEC (11.7-14.0)
[2020-02-26 07:00] VITALS: BP 132/62
--- NOTE | 2020-02-26 07:00 | NUR ---
Pt yelling at and throwing his cell phone and glucometer at her. Told pt he could not throw things at his and he yelled "shut up, I can do whatever I want."
[2020-02-26] MEDS: INSULIN LISPRO 300 UNITS/3 ML VIAL. SQ SCH ×5 (07:30→17:22)
[2020-02-26] MEDS: BACLOFEN 10 MG TABLET. PO SCH ×3 (08:25→21:52)
[2020-02-26] MEDS: LOSARTAN POTASSIUM 50 MG TABLET. PO SCH (08:25)
[2020-02-26] MEDS: VERAPAMIL 40 MG TABLET. PO SCH ×2 (08:25→21:51)
[2020-02-26] MEDS: INSULIN GLARGINE SYRINGE. SQ SCH ×2 (08:31→21:53)
--- NOTE | 2020-02-26 10:08 | PDOC ---
[facility] [facility] PROGRESS NOTE Date of Service DOS: DATE: 02/26/20 TIME: 10:07 Chief Complaint Chief Complaint Bilateral leg weakness Physical debility Type 2 diabetes with hyperglycemia Malnutrition Plan: We will admit patient and consult nephrology to continue his hemodialysis Consults wound care physician for chronic bilateral lower extremity wounds PT/OT We will arrange for home physical therapy or intake jail Resume home insulin basal/prandial regimen with high-dose sliding scale Resume home medications FEN - ADA diet PPX - warfarin FULL CODE Dispo - inpatient for above History of Present Illness History of Present Illness Patient is 64-year-old male past medical history end-stage renal disease, who complains of ER with complaints of worsening bilateral lower extremity weakness for the past month. Patient states he is normally able to ambulate with his walker, recently reports difficulty able to get out of his chair. States he was told to start outpatient physical therapy recently, but has been unable to get a ride to his appointment. Patient denies any recent fevers, chills, shortness of breath. 02/22: Patient seen with with physical therapy this morning. Reportedly his heart has been fixed. is at bedside and is adamant about patient going to jail for inpatient physical therapy. Patient is finally agreeable to SNF. 02/23: Patient seen and evaluated bedside. He states he does not feel well, complaining of shortness of breath and bilateral hand pain, cramping in nature. He has history of similar pain when he has too much fluid removed from hemodialysis, and states he had roughly 6 L removed today. Patient is currently breathing on supplemental oxygen by nasal cannula. He is afebrile, denies chest pain, denies nausea. Will obtain chest x-ray. I do believe patient would benefit from inpatient jail, and is adamant that he will not come home until he receives SNF. 02/24: Patient with some shortness of breath and hand cramping yesterday after hemodialysis, but has resolved. Chest x-ray shows no acute process. Plan is inpatient jail, hopefully on Thursday. Patient's is requesting that she is updated when he is transferred to SNF. 02/25: Patient seen and evaluated bedside. Events overnight. Plan is inpatient jail, hopefully on Thursday. Patient's is requesting that she is updated when he is transferred to SNF. Vitals/I&O Vitals/I&O: Vital Signs Date Time Temp Pulse Resp B/P (MAP) Pulse Ox O2 Delivery O2 Flow Rate FiO2 02/26/20 08:25 80 132/62 02/26/20 08:00 Room Air 02/26/20 07:00 97.5 18 96 97.5 I & O 02/25/20 02/25/20 02/26/20 15:00 23:00 07:00 Intake Total 500 ml 440 ml 240 ml Balance 500 ml 440 ml 240 ml Physical Exam General: Alert, Cooperative, No acute distress Heart: Regular rate Lungs: Clear, Crackles Abdomen: Normal bowel sounds Extremities: No clubbing Labs Labs: Laboratory Tests Test 02/25/20 10:48 02/25/20 16:38 02/26/20 03:20 Glucose (Fingerstick) 232 mg/dL (70-99) 87 mg/dL (70-99) Prothrombin Time 26.8 SEC (11.7-14.0) Prothromb Time International Ratio 2.5 (0.8-1.1) Sodium Level 126 mmol/L (136-145) Potassium Level 5.0 mmol/L (3.5-5.1) Chloride Level 89 mmol/L (98-107) Carbon Dioxide Level 25 mmol/L (21-32) Anion Gap 12 (6-14) Blood Urea Nitrogen 45 mg/dL (8-26) Creatinine 8.4 mg/dL (0.7-1.3) Estimated GFR (Cockcroft-Gault) 6.5 Glucose Level 162 mg/dL (70-99) Calcium Level 9.3 mg/dL (8.5-10.1) Review of Systems Review of Systems: Denies fever, denies chest pain, denies shortness of breath. Assessment and Plan Assessmemt and Plan Problems Medical Problems: (1) Chronic kidney disease, stage IV (severe) Status: Acute (2) Inability to ambulate due to multiple joints Status: Acute Comment Review of Relevant I have reviewed the following items joyce (where applicable) has been applied. Medications: Current Medications Medications (Trade) Dose Ordered Sig/Cristian Route PRN Reason Start Time Stop Time Status Last Admin Dose Admin Warfarin Sodium (Coumadin) 5 mg DAILY16 PO 02/25/20 16:00 02/25/20 17:44 Justifications for Admission Other Justification Intractable pain, left lower extremity wound DENISE LOPEZ MD Feb 26, 2020 10:08
[2020-02-26 10:38] VITALS: BP 119/65
--- NOTE | 2020-02-26 11:04 | NUR ---
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 Target range for this patient is: 2 -3 P: Warfarin dose: 4 mg Today at 1600 Bridge Therapy: None Next INR due 11 AM Pharmacy anticoagulation service will continue to follow. MAXIME MOREIRA [facility], 02/26/20 [id number]
--- NOTE | 2020-02-26 14:14 | NUR ---
came to desk to tell RN pt needed cleaned up because he had a BM in the bed. When entering the room and attempting to clean pt he yelled telling me to shut up when asking if he would wear a brief. Pt was verbally aggressive. Will return to clean pt when he as calmed down.
--- NOTE | 2020-02-26 14:24 | PDOC ---
Renal-Progress Notes Subjective Notes Notes NONE History of Present Illness Hx of present illness NO ACUTE CHANGES Vitals Vitals Vital Signs Date Time Temp Pulse Resp B/P (MAP) Pulse Ox O2 Delivery O2 Flow Rate FiO2 02/26/20 10:38 98.5 79 18 119/65 (83) 97 Room Air 98.5 Weight Weight [ ] I.O. Intake and Output Intake and Output 02/26/20 07:00 Intake Total 1180 ml Balance 1180 ml Intake Oral 1180 ml # Bowel Movements 3 Labs Labs Laboratory Tests Test 02/25/20 16:38 02/26/20 03:20 Glucose (Fingerstick) 87 mg/dL (70-99) Prothrombin Time 26.8 SEC (11.7-14.0) Prothromb Time International Ratio 2.5 (0.8-1.1) Sodium Level 126 mmol/L (136-145) Potassium Level 5.0 mmol/L (3.5-5.1) Chloride Level 89 mmol/L (98-107) Carbon Dioxide Level 25 mmol/L (21-32) Anion Gap 12 (6-14) Blood Urea Nitrogen 45 mg/dL (8-26) Creatinine 8.4 mg/dL (0.7-1.3) Estimated GFR (Cockcroft-Gault) 6.5 Glucose Level 162 mg/dL (70-99) Calcium Level 9.3 mg/dL (8.5-10.1) Review of Systems Constitutional: yes: weakness, alert Ears/Nose/Throat: Yes: no symptom reported Eyes: Yes: no symptom reported Pulmonary: Yes no symptom reported Cardiovascular: Yes no symptom reported Gastrointestional: Yes: no symptom reported Genitourinary: Yes: no symptom reported Musculoskeletal: Yes: no symptom reported Skin: Yes no symptom reported Psychiatric/Neurological: Yes: no symptom reported Endocrine: Yes: no symptom reported Physical Exam General Appearance: no apparent distress Skin: warm Heart: S1S2 Abdomen: soft, bowel sounds present Extremities: pulses present Neurology: alert Assessment Assessment IMP DECONDITIONING ANEMIA ESRD HTN NON COMPLIANCE PLAN HD TOMORROW ENC COMPLIANCE PT WILL FOLLOW GALEN BOTELLO MD Feb 26, 2020 14:24
[2020-02-26 14:59] VITALS: BP 131/61
[2020-02-26] MEDS ORDERED: WARFARIN 4 MG TABLET. PO ONE (16:00)
[2020-02-26 19:45] VITALS: BP 131/50
--- NOTE | 2020-02-26 21:35 | NUR ---
Patient had BM in chair. Patient upset when this RN asked if he was ready to get cleaned up and in bed for the evening. Patient screamed at this RN proclaiming, "...I can't move and NOBODY understands. I need HELP". This RN explained to patient that assistance was being offered at this time and he became both verbally and physically aggressive towards this RN called this RN "stupid" and then threw his glucometer at this RN's head. This RN notified nursing paper machine supervisor who spoke with patient regarding his behavior. Patient verbalized understanding that aggressive behaviors such as these are not tolerated. Patient moved to bed and cleaned with assistance from staff. Patient now in bed, call light within reach and no other needs voiced at this time.
[2020-02-26] MEDS: TEMAZEPAM 15 MG CAPSULE PO SCH (21:52)
--- NOTE | 2020-02-26 21:55 | NUR ---
Patient using own glucose monitoring system and reports blood glucose at 106 for the evening.
[2020-02-26 22:31] VITALS: BP 134/56
[2020-02-27 03:15] VITALS: BP 112/63
[2020-02-27 07:00] VITALS: BP 142/76
[2020-02-27] MEDS: INSULIN LISPRO 300 UNITS/3 ML VIAL. SQ SCH ×5 (08:00→17:00)
[2020-02-27] MEDS ORDERED: IV NORMAL SALINE 1000ML BAG 1,000 ML IV PRN ×2 (08:02)
[2020-02-27] MEDS ORDERED: DIALYSIS PATIENT. MC PRN (08:15)
--- NOTE | 2020-02-27 08:47 | PDOC ---
PROGRESS NOTES Date of Service: DATE: 02/27/20 TIME: 08:47 Chief Complaint Chief Complaint discharge dx Bilateral leg weakness Physical debility Type 2 diabetes with hyperglycemia Malnutrition Plan: We will admit patient and consult nephrology to continue his hemodialysis Consults wound care physician for chronic bilateral lower extremity wounds PT/OT intake assisted Resume home insulin basal/prandial regimen with high-dose sliding scale Resume home medications FEN - ADA diet PPX - warfarin FULL CODE Dispo - inpatient for above d/c planning 34 min History of Present Illness History of Present Illness Patient is 64-year-old male past medical history end-stage renal disease, who complains of ER with complaints of worsening bilateral lower extremity weakness for the past month. Patient states he is normally able to ambulate with his walker, recently reports difficulty able to get out of his chair. States he was told to start outpatient physical therapy recently, but has been unable to get a ride to his appointment. Patient denies any recent fevers, chills, shortness of breath. 02/22: Patient seen with with physical therapy this morning. Reportedly his heart has been fixed. is at bedside and is adamant about patient going to assisted for inpatient physical therapy. Patient is finally agreeable to SNF. 02/23: Patient seen and evaluated bedside. He states he does not feel well, complaining of shortness of breath and bilateral hand pain, cramping in nature. He has history of similar pain when he has too much fluid removed from hemodialysis, and states he had roughly 6 L removed today. Patient is currently breathing on supplemental oxygen by nasal cannula. He is afebrile, denies chest pain, denies nausea. Will obtain chest x-ray. I do believe patient would benefit from inpatient assisted, and is adamant that he will not come home until he receives SNF. 02/24: Patient with some shortness of breath and hand cramping yesterday after hemodialysis, but has resolved. Chest x-ray shows no acute process. Plan is inpatient assisted, hopefully on Thursday. Patient's is requesting that she is updated when he is transferred to SNF. 02/26: Patient seen and evaluated bedside. no Events overnight. Plan is assisted, Patient's is requesting that she is updated when he is transferred to SNF. Vitals Vitals Vital Signs Date Time Temp Pulse Resp B/P (MAP) Pulse Ox O2 Delivery O2 Flow Rate FiO2 02/27/20 07:00 98.0 74 18 142/76 (98) 100 Nasal Cannula 2.0 98.0 Physical Exam General: Alert, Oriented X3, Cooperative, No acute distress Heart: Regular rate, Normal S1 Lungs: Clear, Crackles Abdomen: Normal bowel sounds, Soft, No tenderness Extremities: No clubbing, No cyanosis Labs LABS Laboratory Tests Test 02/27/20 04:54 02/27/20 07:22 Glucose (Fingerstick) 139 mg/dL (70-99) 131 mg/dL (70-99) Assessment and Plan Assessmemt and Plan Problems Medical Problems: (1) Chronic kidney disease, stage IV (severe) Status: Acute (2) Inability to ambulate due to multiple joints Status: Acute Comment Review of Relevant I have reviewed the following items joyce (where applicable) has been applied. Labs Laboratory Tests Test 02/25/20 10:48 02/25/20 16:38 02/26/20 03:20 02/27/20 04:54 Glucose (Fingerstick) 232 mg/dL (70-99) 87 mg/dL (70-99) 139 mg/dL (70-99) Prothrombin Time 26.8 SEC (11.7-14.0) Prothromb Time International Ratio 2.5 (0.8-1.1) Sodium Level 126 mmol/L (136-145) Potassium Level 5.0 mmol/L (3.5-5.1) Chloride Level 89 mmol/L (98-107) Carbon Dioxide Level 25 mmol/L (21-32) Anion Gap 12 (6-14) Blood Urea Nitrogen 45 mg/dL (8-26) Creatinine 8.4 mg/dL (0.7-1.3) Estimated GFR (Cockcroft-Gault) 6.5 Glucose Level 162 mg/dL (70-99) Calcium Level 9.3 mg/dL (8.5-10.1) Test 02/27/20 07:22 Glucose (Fingerstick) 131 mg/dL (70-99) Laboratory Tests Test 02/27/20 04:54 02/27/20 07:22 Glucose (Fingerstick) 139 mg/dL (70-99) 131 mg/dL (70-99) Medications Current Medications Acetaminophen (Tylenol) 500 mg PRN BID PRN PO MILD PAIN 1-3; Start 02/22/20 at 08:15; Stop 02/22/20 at 14:45; Status DC Baclofen (Lioresal) 5 mg TID PO Last administered on 02/26/20 21:52; Start 02/22/20 at 09:00 Losartan Potassium (Cozaar) 25 mg DAILY PO Last administered on 02/26/20 08:25; Start 02/22/20 at 09:00 Ondansetron HCl (Zofran Odt) 4 mg PRN BID PRN PO NAUSEA/VOMITING; Start 01/26 12/14 at 08:15 Temazepam (Restoril) 15 mg QHS PO Last administered on 02/26/20at 21:52; Start 02/22/20 at 21:00 Warfarin Sodium (Coumadin) 5 mg DAILY PO ; Start 02/22/20 at 09:00; Stop 02/22/20 at 10:37; Status DC Insulin Glargine (Lantus Syringe) 35 unit BID SQ Last administered on 02/26/20at 21:53; Start 02/22/20 at 09:30 Insulin Human Lispro (HumaLOG) 50 units BIDACBL SQ Last administered on 02/27/20 08:33; Start 02/22/20 at 09:00 Psyllium Hydrophilic Mucilloid (Metamucil Fiber Packet) 1 pkt PRN QHS PRN PO BOWEL PROGRAM; Start 02/22/20 at 21:00 Verapamil HCl (Calan) 160 mg BID PO Last administered on 02/26/20at 21:51; S tart 02/22/20 at 09:15 Insulin Human Lispro (HumaLOG) 0-9 UNITS TIDWMEALS SQ Last administered on 02/26/20 17:22; Start 02/22/20 at 12:00 Dextrose (Dextrose 50%-Water Syringe) 12.5 gm PRN Q15MIN PRN IV SEE COMMENTS Last administered on 02/22/20at 16:57; Start 02/22/20 at 08:30 Ondansetron HCl (Zofran) 4 mg PRN Q6HRS PRN IVP NAUSEA/VOMITING; Start 10/28/20 at 08:30 Al Hydroxide/Mg Hydroxide (Mylanta Plus Xs) 30 ml PRN Q3HRS PRN PO HEARTBURN / GAS; Start 02/22/20 at 08:30 Calcium Carbonate/ Glycine (Tums) 500 mg PRN Q3HRS PRN PO UPSET STOMACH; Start 02/22/20 at 08:30 Zolpidem Tartrate (Ambien) 5 mg PRN QHS PRN PO INSOMNIA, MAY REPEAT IN 1HR; Start 02/22/20 at 08:30 Morphine Sulfate (Morphine Sulfate) 2 mg PRN Q1HR PRN IV MODERATE TO SEVERE PAIN; Start 02/22/20 at 08:30 Acetaminophen/ Hydrocodone Bitart (Lortab 5/325) 1 tab PRN Q4HRS PRN PO MILD PAIN 1-3; Start 02/22/20 at 08:30 Acetaminophen (Tylenol) 650 mg PRN Q6HRS PRN PO Headaches, Temp > 101.5F; Start 02/22/20 at 08:30 Magnesium Hydroxide (Milk Of Magnesia) 2,400 mg PRN Q12HR PRN PO CONSTIPATION; Start 02/22/20 at 08:30 Bisacodyl (Dulcolax Supp) 10 mg PRN DAILY PRN DC CONSTIPATION; Start 02/22/20 at 08:30 Warfarin Sodium (Coumadin Per Pharmacy) 1 each PRN DAILY PRN MC SEE COMMENTS [facility] administered on 02/26/20at 11:03; Start 02/22/20 at 08:45 Sodium Chloride 1,000 ml @ 1,000 mls/hr Q1H PRN IV hypotension; Start 02/22/20 at 10:46; Stop 02/22/20 at 16:45; Status DC Albumin Human 200 ml @ 200 mls/hr 1X PRN PRN IV Hypotension; Start 02/22/20 at 11:00; Stop 02/22/20 at 16:59; Status DC Sodium Chloride 1,000 ml @ 400 mls/hr Q2H30M PRN IV PATENCY; Start 02/22/20 at 10:46; Stop 02/22/20 at 22:45; Status DC Info (PHARMACY MONITORING -- do not chart) 1 each PRN DAILY PRN MC SEE COM MENTS; Start 02/22/20 at 11:00; Stop 02/24/20 at 07:56; Status DC Warfarin Sodium (Coumadin - No Dose Today) 1 each 1X WARF ONCE MC Last administered on 02/22/20at 16:00; Start 02/22/20 at 16:00; Stop 02/22/20 at 16:01; Status DC Warfarin Sodium (Coumadin) 5 mg 1X WARF ONCE PO Last administered on 02/23/20at 17:12; Start 02/23/20 at 16:00; Stop 02/23/20 at 16:01; Status DC Sodium Chloride 1,000 ml @ 1,000 mls/hr Q1H PRN IV hypotension; Start 02/24/20 at 07:50; Stop 02/24/20 at 13:49; Status DC Diphenhydramine HCl (Benadryl) 25 mg 1X PRN PRN IV ITCHING; Start 02/24/20 at 08:00; Stop 02/25/20 at 07:59; Status DC Diphenhydramine HCl (Benadryl) 25 mg 1X PRN PRN IV ITCHING; Start 02/24/20 at 08:00; Stop 02/25/20 at 07:59; Status DC Sodium Chloride 1,000 ml @ 400 mls/hr Q2H30M PRN IV PATENCY; Start 02/24/20 at 07:50; Stop 02/24/20 at 19:49; Status DC Info (PHARMACY MONITORING -- do not chart) 1 each PRN DAILY PRN MC SEE COMMENTS; Start 02/24/20 at 08:00 Warfarin Sodium (Coumadin) 5 mg 1X WARF ONCE PO Last administered on 02/24/20at 17:25; Start 02/24/20 at 16:00; Stop 02/24/20 at 16:01; Status DC Warfarin Sodium (Coumadin) 5 mg DAILY16 PO Last administered on 02/25/20at 17:44; Start 02/25/20 at 16:00; Stop 02/26/20 at 11:01; Status DC Warfarin Sodium (Coumadin) 4 mg 1X WARF ONCE PO Last administered on 02/26/20at 17:18; Start 02/26/20 at 16:00; Stop 02/26/20 at 16:01; Status DC Sodium Chloride 1,000 ml @ 1,000 mls/hr Q1H PRN IV hypotension; Start 02/27/20 at 08:02; Stop 02/27/20 at 14:01 Sodium Chloride 1,000 ml @ 400 mls/hr Q2H30M PRN IV PATENCY; Start 02/27/20 at 08:02; Stop 02/27/20 at 20:01 Info (PHARMACY MONITORING -- do not chart) 1 each PRN DAILY PRN MC SEE COMMENTS; Start 02/27/20 at 08:15 Active Scripts Active Baclofen 10 Mg Tablet 5 Mg PO TID Zofran Odt (Ondansetron) 4 Mg Tab.rapdis 4 Mg PO BID PRN Reported Metamucil (Psyllium Husk) 0.52 Gm Capsule 1 Cap PO HS PRN 30 Days Temazepam 15 Mg Capsule 1 Cap PO QHS Losartan Potassium 50 Mg Tablet 25 Mg PO DAILY Verapamil Hcl 80 Mg Tablet 2 Tab PO BID Humalog (Insulin Lispro) 100 Unit/1 Ml Vial 60 Unit SQ DAILYWSUP Lantus Solostar (Insulin Glargine,Hum.rec.anlog) 100 Unit/1 Ml Insuln.pen 35 Unit SQ BIDAC PRN Acetaminophen 500 Mg Tablet 1 Tab PO BID PRN Renal Vitamin Tablet (Folic Acid/Vit Bcomp,C) 0.8 Mg Tablet 0.8 Mg PO DAILY Humalog (Insulin Lispro) 100 Unit/1 Ml Insuln.pen 50 Unit SQ BIDACBL Warfarin Sodium 5 Mg Tablet 5 Mg PO DAILY Vitals/I & O Vital Sign - Last 24 Hours 02/26/20 02/26/20 02/26/20 02/26/20 10:38 14:59 19:45 20:00 Temp 98.5 97.8 98.1 98.5 97.8 98.1 Pulse 79 70 86 Resp 18 18 18 B/P (MAP) 119/65 (83) 131/61 (84) 131/50 (77) Pulse Ox 97 96 96 O2 Delivery Room Air Room Air Room Air Room Air 02/26/20 02/26/20 02/27/20 02/27/20 21:51 22:31 03:15 07:00 Temp 98.2 98.3 98.0 98.2 98.3 98.0 Pulse 87 80 92 74 Resp 18 18 18 B/P (MAP) 135/63 134/56 (82) 112/63 (79) 142/76 (98) Pulse Ox 97 98 100 O2 Delivery Room Air Room Air Nasal Cannula O2 Flow Rate 2.0 Intake and Output 0 11/1/20 11/1/20 11/2/20 15:00 23:00 07:00 Intake Total 480 ml 200 ml 420 ml Balance 480 ml 200 ml 420 ml Justicifation of Admission Dx: Justifications for Admission: Justification of Admission Dx: Yes Chronic Renal Failure: Hypertension Cellulitis: Cellulitis AMADA BRYANT MD Feb 27, 2020 08:47
[2020-02-27] MEDS: VERAPAMIL 40 MG TABLET. PO SCH ×2 (09:00→20:39)
[2020-02-27] MEDS: LOSARTAN POTASSIUM 50 MG TABLET. PO SCH (09:00)
[2020-02-27] MEDS: BACLOFEN 10 MG TABLET. PO SCH ×3 (09:00→20:40)
[2020-02-27] MEDS: INSULIN GLARGINE SYRINGE. SQ SCH ×2 (09:00→20:40)
[2020-02-27 09:28] LABS: CALCIUM 9.3 mg/dL (8.5-10.1); CREATININE 9.6 mg/dL (0.7-1.3); GFR 5.5; POTASSIUM 5.2 mmol/L (3.5-5.1)
--- NOTE | 2020-02-27 09:52 | PDOC ---
DATE OF SERVICE DATE: 02/27/20 TIME: 09:52 SUBJECTIVE ROS Seen on HD , No complaints OBJECTIVE Vital Signs Vital Signs Date Time Temp Pulse Resp B/P (MAP) Pulse Ox O2 Delivery O2 Flow Rate FiO2 02/27/20 07:00 98.0 74 18 142/76 (98) 100 Nasal Cannula 2.0 98.0 I & 0 Intake and Output 02/27/20 07:00 Intake Total 1100 ml Balance 1100 ml Intake Oral 1100 ml # Bowel Movements 2 PHYSICAL EXAM Physical Exam General Appearance: no apparent distress Skin: warm Heart: S1S2 Abdomen: soft, bowel sounds present Extremities: pulses present Neurology: alert DIAGNOSIS/ASSESSMENT Assessment & Plan ESRD - On HD Seen on HD, tolerating well , continue as tolerated , Nestor Lance Anemia HTN Non Compliance COMMENT/RELEVANT DATA Meds Current Medications Medications (Trade) Dose Ordered Sig/Cristian Start Time Stop Time Status Last Admin Dose Admin Acetaminophen (Tylenol) 650 mg PRN Q6HRS PRN 02/22/20 08:30 Acetaminophen/ Hydrocodone Bitart (Lortab 5/325) 1 tab PRN Q4HRS PRN 02/22/20 08:30 Al Hydroxide/Mg Hydroxide (Mylanta Plus Xs) 30 ml PRN Q3HRS PRN 02/22/20 08:30 Albumin Human 200 ml @ 200 mls/hr 1X PRN PRN 02/22/20 11:00 02/22/20 16:59 DC Baclofen (Lioresal) 5 mg TID 02/22/20 09:00 02/26/20 21:52 5 MG Bisacodyl (Dulcolax Supp) 10 mg PRN DAILY PRN 02/22/20 08:30 Calcium Carbonate/ Glycine (Tums) 500 mg PRN Q3HRS PRN 02/22/20 08:30 Dextrose (Dextrose 50%-Water Syringe) 12.5 gm PRN Q15MIN PRN 02/22/20 08:30 02/22/20 16:57 25 GM Diphenhydramine HCl (Benadryl) 25 mg 1X PRN PRN 02/24/20 08:00 02/25/20 07:59 DC Info (PHARMACY MONITORING -- do not chart) 1 each PRN DAILY PRN 02/27/20 08:15 Insulin Glargine (Lantus Syringe) 35 unit BID 02/22/20 09:30 02/26/20 21:53 35 UNIT Insulin Human Lispro (HumaLOG) 0-9 UNITS TIDWMEALS 02/22/20 12:00 02/26/20 17:22 5 UNITS Losartan Potassium (Cozaar) 25 mg DAILY 02/22/20 09:00 02/26/20 08:25 25 MG Magnesium Hydroxide (Milk Of Magnesia) 2,400 mg PRN Q12HR PRN 02/22/20 08:30 Morphine Sulfate (Morphine Sulfate) 2 mg PRN Q1HR PRN 02/22/20 08:30 Ondansetron HCl (Zofran Odt) 4 mg PRN BID PRN 02/22/20 08:15 Ondansetron HCl (Zofran) 4 mg PRN Q6HRS PRN 02/22/20 08:30 Psyllium Hydrophilic Mucilloid (Metamucil Fiber Packet) 1 pkt PRN QHS PRN 02/22/20 21:00 Sodium Chloride 1,000 ml @ 400 mls/hr Q2H30M PRN 02/27/20 08:02 02/27/20 20:01 Temazepam (Restoril) 15 mg QHS 02/22/20 21:00 02/26/20 21:52 15 MG Verapamil HCl (Calan) 160 mg BID 02/22/20 09:15 02/26/20 21:51 160 MG Warfarin Sodium (Coumadin - No Dose Today) 1 each 1X WARF ONCE 02/22/20 16:00 02/22/20 16:01 DC 02/22/20 16:00 1 EACH Warfarin Sodium (Coumadin Per Pharmacy) 1 each PRN DAILY PRN 02/22/20 08:45 02/26/20 11:03 1 EACH Warfarin Sodium (Coumadin) 4 mg 1X WARF ONCE 02/26/20 16:00 02/26/20 16:01 DC 02/26/20 17:18 4 MG Zolpidem Tartrate (Ambien) 5 mg PRN QHS PRN 02/22/20 08:30 Lab Laboratory Tests Test 02/27/20 04:54 02/27/20 07:22 02/27/20 08:53 Glucose (Fingerstick) 139 mg/dL (70-99) 131 mg/dL (70-99) Prothrombin Time 33.0 SEC (11.7-14.0) Prothromb Time International Ratio 3.2 (0.8-1.1) Sodium Level 125 mmol/L (136-145) Potassium Level 5.2 mmol/L (3.5-5.1) Chloride Level 89 mmol/L (98-107) Carbon Dioxide Level 21 mmol/L (21-32) Anion Gap 15 (6-14) Blood Urea Nitrogen 53 mg/dL (8-26) Creatinine 9.6 mg/dL (0.7-1.3) Estimated GFR (Cockcroft-Gault) 5.5 Glucose Level 154 mg/dL (70-99) Calcium Level 9.3 mg/dL (8.5-10.1) Results All relevant outside records, renal labs, imaging studies, telemetry/EKG's were reviewed. Justicifation of Admission Dx: Justifications for Admission: Justification of Admission Dx: Yes Chronic Renal Failure: Hypertension Cellulitis: Cellulitis ANABEL GARSIA MD Feb 27, 2020 09:52
--- NOTE | 2020-02-27 09:57 | PDOC3 ---
Discharge Summary Date of Admission: Feb 22, 2020 Date of Discharge: Feb 27, 2020 Follow-Up: 1-2 days Admitting Diagnosis comment: discharge dx Bilateral leg weakness Physical debility Type 2 diabetes with hyperglycemia Malnutrition Plan: We will admit patient and consult nephrology to continue his hemodialysis Consults wound care physician for chronic bilateral lower extremity wounds PT/OT intake senior care, PP Resume home insulin basal/prandial regimen with high-dose sliding scale Resume home medications FEN - ADA diet PPX - warfarin FULL CODE Dispo - inpatient for above d/c planning 34 min History of Present Illness History of Present Illness Patient is 64-year-old male past medical history end-stage renal disease, who complains of ER with complaints of worsening bilateral lower extremity weakness for the past month. Patient states he is normally able to ambulate with his walker, recently reports difficulty able to get out of his chair. States he was told to start outpatient physical therapy recently, but has been unable to get a ride to his appointment. Patient denies any recent fevers, chills, shortness of breath. 02/22: Patient seen with with physical therapy this morning. Reportedly his heart has been fixed. is at bedside and is adamant about patient going to senior care for inpatient physical therapy. Patient is finally agreeable to SNF. 02/23: Patient seen and evaluated bedside. He states he does not feel well, complaining of shortness of breath and bilateral hand pain, cramping in nature. He has history of similar pain when he has too much fluid removed from hemodialysis, and states he had roughly 6 L removed today. Patient is currently breathing on supplemental oxygen by nasal cannula. He is afebrile, denies chest pain, denies nausea. Will obtain chest x-ray. I do believe patient would benefit from inpatient senior care, and is adamant that he will not come home until he receives SNF. 02/24: Patient with some shortness of breath and hand cramping yesterday after hemodialysis, but has resolved. Chest x-ray shows no acute process. Plan is inpatient senior care, hopefully on Thursday. Patient's is requesting that she is updated when he is transferred to SNF. 02/26: Patient seen and evaluated bedside. no Events overnight. Plan is senior care, Patient's is requesting that she is updated when he is transferred to SNF. Vitals Vitals Vital Signs Date Time Temp Pulse Resp B/P (MAP) Pulse Ox O2 Delivery O2 Flow Rate FiO2 02/27/20 07:00 98.0 74 18 142/76 (98) 100 Nasal Cannula 2.0 98.0 Physical Exam General: Alert, Oriented X3, Cooperative, No acute distress Heart: Regular rate, Normal S1 Lungs: Clear, Crackles Abdomen: Normal bowel sounds, Soft, No tenderness Extremities: No clubbing, No cyanosis Labs LABS Laboratory Tests Test 02/27/20 04:54 02/27/20 07:22 Glucose (Fingerstick) 139 mg/dL (70-99) 131 mg/dL (70-99) Assessment and Plan Assessmemt and Plan Problems Medical Problems: (1) Chronic kidney disease, stage IV (severe) Status: Acute (2) 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 Denny is a 64 old [sex] who presented with [WEAKNESS, ESRD ] CONDITION AT DISCHARGE: Improved Discharge Medications Current Medications Acetaminophen (Tylenol) 500 mg PRN BID PRN PO MILD PAIN 1-3; Start 02/22/20 at 08:15; Stop 02/22/20 at 14:45; Status DC Baclofen (Lioresal) 5 mg TID PO Last administered on 02/26/20at 21:52; Start 02/22/20 at 09:00 Losartan Potassium (Cozaar) 25 mg DAILY PO Last administered on 02/26/20at 08:25; Start 02/22/20 at 09:00 Ondansetron HCl (Zofran Odt) 4 mg PRN BID PRN PO NAUSEA/VOMITING; Start 02/22/20 at 08:15 Temazepam (Restoril) 15 mg QHS PO Last administered on 02/26/20at 21:52; Start 02/22/20 at 21:00 Warfarin Sodium (Coumadin) 5 mg DAILY PO ; Start 02/22/20 at 09:00; Stop 02/22/20 at 10:37; Status DC Insulin Glargine (Lantus Syringe) 35 unit BID SQ Last administered on 02/26/20at 21:53; Start 02/22/20 at 09:30 Insulin Human Lispro (HumaLOG) 50 units BIDACBL SQ Last administered on 02/27/20at 08:33; Start 02/22/20 at 09:00 Psyllium Hydrophilic Mucilloid (Metamucil Fiber Packet) 1 pkt PRN QHS PRN PO BOWEL PROGRAM; Start 02/22/20 at 21:00 Verapamil HCl (Calan) 160 mg BID PO Last administered on 02/26/20at 21:51; Start 02/22/20 at 09:15 Insulin Human Lispro (HumaLOG) 0-9 UNITS TIDWMEALS SQ Last administered on 02/26/20at 17:22; Start 02/22/20 at 12:00 Dextrose (Dextrose 50%-Water Syringe) 12.5 gm PRN Q15MIN PRN IV SEE COMMENTS Last administered on 02/22/20at 16:57; Start 02/22/20 at 08:30 Ondansetron HCl (Zofran) 4 mg PRN Q6HRS PRN IVP NAUSEA/VOMITING; Start 02/22/20 at 08:30 Al Hydroxide/Mg Hydroxide (Mylanta Plus Xs) 30 ml PRN Q3HRS PRN PO HEARTBURN / GAS; Start 02/22/20 at 08:30 Calcium Carbonate/ Glycine (Tums) 500 mg PRN Q3HRS PRN PO UPSET STOMACH; Start 02/22/20 at 08:30 Zolpidem Tartrate (Ambien) 5 mg PRN QHS PRN PO INSOMNIA, MAY REPEAT IN 1HR; Start 02/22/20 at 08:30 Morphine Sulfate (Morphine Sulfate) 2 mg PRN Q1HR PRN IV MODERATE TO SEVERE PAIN; Start 02/22/20 at 08:30 Acetaminophen/ Hydrocodone Bitart (Lortab 5/325) 1 tab PRN Q4HRS PRN PO MILD PAIN 1-3; Start 02/22/20 at 08:30 Acetaminophen (Tylenol) 650 mg PRN Q6HRS PRN PO Headaches, Temp > 101.5F; Start 02/22/20 at 08:30 Magnesium Hydroxide (Milk Of Magnesia) 2,400 mg PRN Q12HR PRN PO CONSTIPATION; Start 02/22/20 at 08:30 Bisacodyl (Dulcolax Supp) [address] CONSTIPATION; Start 02/22/20 at 08:30 Warfarin Sodium (Coumadin Per Pharmacy) 1 each PRN DAILY PRN MC SEE COMMENTS Last administered on 02/26/20at 11:03; Start 02/22/20 at 08:45 Sodium Chloride 1,000 ml @ 1,000 mls/hr Q1H PRN IV hypotension; Start 02/22/20 at 10:46; Stop 02/22/20 at 16:45; Status DC Albumin Human 200 ml @ 200 mls/hr 1X PRN PRN IV Hypotension; Start 02/22/20 at 11:00; Stop 02/22/20 at 16:59; Status DC Sodium Chloride 1,000 ml @ 400 mls/hr Q2H30M PRN IV PATENCY; Start 02/22/20 at 10:46; Stop 02/22/20 at 22:45; Status DC Info (PHARMACY MONITORING -- do not chart) 1 each PRN DAILY PRN MC SEE COMMENTS; Start 02/22/20 at 11:00; Stop 02/24/20 at 07:56; Status DC Warfarin Sodium (Coumadin - No Dose Today) 1 each 1X WARF ONCE MC Last administered on 02/22/20at 16:00; Start 02/22/20 at 16:00; Stop 02/22/20 at 16:01; Status DC Warfarin Sodium (Coumadin) 5 mg 1X WARF ONCE PO Last administered on 02/23/20at 17:12; Start 02/23/20 at 16:00; Stop 02/23/20 at 16:01; Status DC Sodium Chloride 1,000 ml @ 1,000 mls/hr Q1H PRN IV hypotension; Start 02/24/20 at 07:50; Stop 02/24/20 at 13:49; Status DC Diphenhydramine HCl (Benadryl) 25 mg 1X PRN PRN IV ITCHING; Start 02/24/20 at 08:00; Stop 02/25/20 at 07:59; Status DC Diphenhydramine HCl (Benadryl) 25 mg 1X PRN PRN IV ITCHING; Start 02/24/20 at 08:00; Stop 02/25/20 at 07:59; Status DC Sodium Chloride 1,000 ml @ 400 mls/hr Q2H30M PRN IV PATENCY; Start 02/24/20 at 07:50; Stop 02/24/20 at 19:49; Status DC Info (PHARMACY MONITORING -- do not chart) 1 each PRN DAILY PRN MC SEE COMMENTS; Start 02/24/20 at 08:00 Warfarin Sodium (Coumadin) 5 mg 1X WARF ONCE PO Last administered on 02/24/20a t 17:25; Start 02/24/20 at 16:00; Stop 02/24/20 at 16:01; Status DC Warfarin Sodium (Coumadin) 5 mg DAILY16 PO Last administered on 02/25/20at 17:44; Start 02/25/20 at 16:00; Stop 02/26/20 at 11:01; Status DC Warfarin Sodium (Coumadin) 4 mg 1X WARF ONCE PO Last administered on 02/26/20at 17:18; Start 02/26/20 at 16:00; Stop 02/26/20 at 16:01; Status DC Sodium Chloride 1,000 ml @ 1,000 mls/hr Q1H PRN IV hypotension; Start 02/27/20 at 08:02; Stop 02/27/20 at 14:01 Sodium Chloride 1,000 ml @ 400 mls/hr Q2H30M PRN IV PATENCY; Start 02/27/20 at 08:02; Stop 02/27/20 at 20:01 Info (PHARMACY MONITORING -- do not chart) 1 each PRN DAILY PRN MC SEE COMMENTS; Start 02/27/20 at 08:15 Active Scripts Active Baclofen 10 Mg Tablet 5 Mg PO TID Zofran Odt (Ondansetron) 4 Mg Tab.rapdis 4 Mg PO BID PRN Reported Metamucil (Psyllium Husk) 0.52 Gm Capsule 1 Cap PO HS PRN 30 Days Temazepam 15 Mg Capsule 1 Cap PO QHS Losartan Potassium 50 Mg Tablet 25 Mg PO DAILY Verapamil Hcl 80 Mg Tablet 2 Tab PO BID Humalog (Insulin Lispro) 100 Unit/1 Ml Vial 60 Unit SQ DAILYWSUP Lantus Solostar (Insulin Glargine,Hum.rec.anlog) 100 Unit/1 Ml Insuln.pen 35 Unit SQ BIDAC PRN Acetaminophen 500 Mg Tablet 1 Tab PO BID PRN Renal Vitamin Tablet (Folic Acid/Vit Bcomp,C) 0.8 Mg Tablet 0.8 Mg PO DAILY Humalog (Insulin Lispro) 100 Unit/1 Ml Insuln.pen 50 Unit SQ BIDACBL Warfarin Sodium 5 Mg Tablet 5 Mg PO DAILY Vital Signs Vital Signs Date Time Temp Pulse Resp B/P (MAP) Pulse Ox O2 Delivery O2 Flow Rate FiO2 02/27/20 07:00 98.0 74 18 142/76 (98) 100 Nasal Cannula 2.0 98.0 Labs Laboratory Tests Test 02/25/20 10:48 02/25/20 16:38 02/26/20 03:20 02/27/20 04:54 Glucose (Fingerstick) 232 mg/dL (70-99) 87 mg/dL (70-99) 139 mg/dL (70-99) Prothrombin Time 26.8 SEC (11.7-14.0) Prothromb Time International Ratio 2.5 (0.8-1.1) Sodium Level 126 mmol/L (136-145) Potassium Level 5.0 mmol/L (3.5-5.1) Chloride Level 89 mmol/L (98-107) Carbon Dioxide Level 25 mmol/L (21-32) Anion Gap 12 (6-14) Blood Urea Nitrogen 45 mg/dL (8-26) Creatinine 8.4 mg/dL (0.7-1.3) Estimated GFR (Cockcroft-Gault) 6.5 Glucose Level 162 mg/dL (70-99) Calcium Level 9.3 mg/dL (8.5-10.1) Test 02/27/20 07:22 02/27/20 08:53 Glucose (Fingerstick) 131 mg/dL (70-99) Prothrombin Time 33.0 SEC (11.7-14.0) Prothromb Time International Ratio 3.2 (0.8-1.1) Sodium Level 125 mmol/L (136-145) Potassium Level 5.2 mmol/L (3.5-5.1) Chloride Level 89 mmol/L (98-107) Carbon Dioxide Level 21 mmol/L (21-32) Anion Gap 15 (6-14) Blood Urea Nitrogen 53 mg/dL (8-26) Creatinine 9.6 mg/dL (0.7-1.3) Estimated GFR (Cockcroft-Gault) 5.5 Glucose Level 154 mg/dL (70-99) Calcium Level 9.3 mg/dL (8.5-10.1) Laboratory Tests Test 02/27/20 04:54 02/27/20 07:22 02/27/20 08:53 Glucose (Fingerstick) 139 mg/dL (70-99) 131 mg/dL (70-99) Prothrombin Time 33.0 SEC (11.7-14.0) Prothromb Time International Ratio 3.2 (0.8-1.1) Sodium Level 125 mmol/L (136-145) Potassium Level 5.2 mmol/L (3.5-5.1) Chloride Level 89 mmol/L (98-107) Carbon Dioxide Level 21 mmol/L (21-32) Anion Gap 15 (6-14) Blood Urea Nitrogen 53 mg/dL (8-26) Creatinine 9.6 mg/dL (0.7-1.3) Estimated GFR (Cockcroft-Gault) 5.5 Glucose Level 154 mg/dL (70-99) Calcium Level 9.3 mg/dL (8.5-10.1) Allergies Allergies Coded Allergies Type Severity Reaction Last Updated Verified No Known Drug Allergies 09/27/19 No Disposition/Orders: Other (D/C TO SNF) Justicifation of Admission Dx: Justifications for Admission: Justification of Admission Dx: Yes Chronic Renal Failure: Hypertension Cellulitis: Cellulitis AMADA BRYANT MD Feb 27, 2020 09:57
[2020-02-27] MEDS ORDERED: HYDR-2761 PO (10:02)
[2020-02-27] MEDS ORDERED: WARF-31 PO (10:02)
[2020-02-27] MEDS ORDERED: INSU100V35 SQ (10:02)
--- NOTE | 2020-02-27 10:05 | SNU/HH DC ---
DISCHARGE ORDERS DISCHARGE INFORMATION: FINAL DIAGNOSIS Problems Medical Problems: (1) Chronic kidney disease, stage IV (severe) Status: Acute (2) Inability to ambulate due to multiple joints Status: Acute CONDITION ON DISCHARGE: Stable CODE STATUS: Code Status: Full MCFP: SNF STAY <30 DAYS: Yes HOSPICE: HOSPICE: No HOSPICE EVAL & TREAT: No LTAC: ADMIT TO LTAC: No POST DISCHARGE ORDERS: ACTIVITY ORDERS: Activity as tolerated WEIGHT BEARING STATUS: As tolerated BATHING ORDERS: Shower-keep dressing dry DIET AFTER DISCHARGE: Renal WOUND/INCISION CARE: Change dressing, Reinforce dressing PRN OTHER WOUND INSTRUCTIONS: TO WOUND CLINIC 3 X A WEEK CHECKS AFTER DISCHARGE: CHECKS AFTER DISCHARGE: Check blood press - daily, Check blood sugar, ac/hs, Weigh Yourself Daily FOLLOW-UP: PHYSICIAN FOLLOW-UP: NEPHROLOGY DIRECTED LAB ORDERS FOR FOLLOW-UP: DAILY INR X 3 DAYS ANTICOAGULATION F/U NEEDED: INR X 3 DAYS, ADJUST DOSE INDICATED TREATMENT/EQUIPMENT ORDERS: ADAPTIVE EQUIPMENT NEEDED: None Physical Therapy For: Evalulation/Treatment Occupational Therapy For: Evaluation/Treatment DISCHARGE MEDICATIONS: Home Meds Active Scripts Insulin Lispro (Admelog) 100 Unit/1 Ml Vial, 0 UNITS SQ TIDWMEALS for DIABETES for 30 Days, #2 EACH Prov:AMADA BRYANT MD 02/27/20 Hydrocodone Bit/Acetaminophen (HYDROCODONE-APAP 5-325 ) 1 Tab Tablet, 1 TAB PO PRN Q4HRS PRN for MILD PAIN 1-3 for 14 Days, #40 TAB Prov:AMADA BRYANT MD 02/27/20 Warfarin Sodium (WARFARIN SODIUM) 5 Mg Tablet, 4 MG PO DAILY for DVT Hx for 30 Days, #24 TAB Prov:AMADA BRYANT MD 02/27/20 Baclofen (BACLOFEN) 10 Mg Tablet, 5 MG PO TID for back pain, #90 TAB 0 Refills Prov:DENISE LOPEZ MD 01/13/20 Ondansetron (ZOFRAN ODT) 4 Mg Tab.rapdis, 4 MG PO BID PRN for NAUSEA/VOMITING, #10 TAB Prov:JASWINDER DOMINGUEZ DO 06/26/17 Reported Medications Psyllium Husk (METAMUCIL) 0.52 Gm Capsule, 1 CAP PO HS PRN for bowel program for 30 Days, #30 CAP 0 Refills 01/10/20 Temazepam (TEMAZEPAM) 15 Mg Capsule, 1 CAP PO QHS for insomia, #30 CAP 1 Refill 12/16/19 Losartan Potassium (LOSARTAN POTASSIUM) 50 Mg Tablet, 25 MG PO DAILY for HYPERTENSION, TAB 12/16/19 Verapamil Hcl (VERAPAMIL HCL) 80 Mg Tablet, 2 TAB PO BID for htn, TAB 12/16/19 Insulin Glargine,Hum.rec.anlog (LANTUS SOLOSTAR) 100 Unit/1 Ml Insuln.pen, 35 UNIT SQ BIDAC PRN for rx, #15 ML 3 Refills 09/27/19 Acetaminophen (ACETAMINOPHEN) 500 Mg Tablet, 1 TAB PO BID PRN for PAIN, #60 TAB 1 Refill 08/26/18 Folic Acid/Vit Bcomp,C (Renal Vitamin Tablet) 0.8 Mg Tablet, 0.8 MG PO DAILY 05/22/16 Insulin Lispro (HUMALOG) 100 Unit/1 Ml Insuln.pen, 50 UNIT SQ BIDACBL, SYR 05/22/16 Discontinued Reported Medications Insulin Lispro (HUMALOG) 100 Unit/1 Ml Vial, 60 UNIT SQ DAILYWSUP for rx, VIAL 09/27/19 AMADA BRYANT MD Feb 27, 2020 10:05
--- NOTE | 2020-02-27 10:27 | NUR ---
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 Target range for this patient is: 2 -3 P: Warfarin dose: 2 mg Today at 1600 Bridge Therapy: None Next INR due IN AM Pharmacy anticoagulation service will continue to follow. PAULINE GUAN [facility], 02/27/20 [id number]
[2020-02-27 15:00] VITALS: BP 130/68
--- NOTE | 2020-02-27 15:19 | SNU/HH DC ---
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 RN For Eval/Treatment: Yes Physical Therapy For: Evalulation/Treatment Occupational Therapy For: Evaluation/Treatment Speech Language Pathology For: Evaluation/Treatment Home Health Aide For: Self-care CHARGE COORDINATOR For: Community Resources Pt Meets Homebound Status: Fatigue w/ amb. POST DISCHARGE ORDERS: Activity Instructions for Disc: Activity as tolerated Weight Bearing Status after Di: As tolerated Bathing Instructions: Shower-keep dressing dry DIET AFTER DISCHARGE: Renal Wound/Incision Care: Change dressing, Reinforce dressing PRN Other wound/incision instructi: TO WOUND CLINIC 3 X A WEEK CHECKS AFTER DISCHARGE: Checks after discharge: Check blood press - daily, Check blood sugar, ac/hs, Weigh Yourself Daily FOLLOW-UP: Follow up with: NEPHROLOGY DIRECTED DC TO SNF LABS: DAILY INR X 3 DAYS Warfarin Follow UP: INR X 3 DAYS, ADJUST DOSE INDICATED TREATMENT/EQUIPMENT ORDERS: Adaptive Equipment Issued: None CERTIFICATION STATEMENT: Certification Statement: Certification Statement: Based on the above finding, I certify that this patient is confined to the home and needs intermittent chcf care, physical therapy and/or speech therapy, or continues to need occupational therapy.~ This patient is under my care, and I have initiated the establishment of the plan of care.~ This patient will be followed by myself or a community physician who will periodically review the plan of care. Home Meds Active Scripts Insulin Lispro (Admelog) 100 Unit/1 Ml Vial, 0 UNITS SQ TIDWMEALS for DIABETES for 30 Days, #2 EACH Prov:AMADA BRYANT MD 02/27/20 Hydrocodone Bit/Acetaminophen (HYDROCODONE-APAP 5-325 ) 1 Tab Tablet, 1 TAB PO PRN Q4HRS PRN for MILD PAIN 1-3 for 14 Days, #40 TAB Prov:AMADA BRYANT MD 02/27/20 Warfarin Sodium (WARFARIN SODIUM) 5 Mg Tablet, 4 MG PO DAILY for DVT Hx for 30 Days, #24 TAB Prov:AMADA BRYANT MD 02/27/20 Baclofen (BACLOFEN) 10 Mg Tablet, 5 MG PO TID for back pain, #90 TAB 0 Refills Prov:DENISE LOPEZ MD 01/13/20 Ondansetron (ZOFRAN ODT) 4 Mg Tab.rapdis, 4 MG PO BID PRN for NAUSEA/VOMITING, #10 TAB Prov:JASWINDER DOMINGUEZ DO 06/26/17 Reported Medications Psyllium Husk (METAMUCIL) 0.52 Gm Capsule, 1 CAP PO HS PRN for bowel program for 30 Days, #30 CAP 0 Refills 01/10/20 Temazepam (TEMAZEPAM) 15 Mg Capsule, 1 CAP PO QHS for insomia, #30 CAP 1 Refill 12/16/19 Losartan Potassium (LOSARTAN POTASSIUM) 50 Mg Tablet, 25 MG PO DAILY for HYPERTENSION, TAB 12/16/19 Verapamil Hcl (VERAPAMIL HCL) 80 Mg Tablet, 2 TAB PO BID for htn, TAB 12/16/19 Insulin Glargine,Hum.rec.anlog (LANTUS SOLOSTAR) 100 Unit/1 Ml Insuln.pen, 35 UNIT SQ BIDAC PRN for rx, #15 ML 3 Refills 09/27/19 Acetaminophen (ACETAMINOPHEN) 500 Mg Tablet, 1 TAB PO BID PRN for PAIN, #60 TAB 1 Refill 08/26/18 Folic Acid/Vit Bcomp,C (Renal Vitamin Tablet) 0.8 Mg Tablet, 0.8 MG PO DAILY 05/22/16 Insulin Lispro (HUMALOG) 100 Unit/1 Ml Insuln.pen, 50 UNIT SQ BIDACBL, SYR 05/22/16 Discontinued Reported Medications Insulin Lispro (HUMALOG) 100 Unit/1 Ml Vial, 60 UNIT SQ DAILYWSUP for rx, VIAL 09/27/19 AMADA BRYANT MD Feb 27, 2020 15:19
--- NOTE | 2020-02-27 15:21 | NUR ---
Wound Care Pt in dialysis at time of WC team arrival, will assess wounds tomorrow.
[2020-02-27] MEDS ORDERED: WARFARIN 2 MG TABLET. PO ONE (16:00)
[2020-02-27 19:00] VITALS: BP 154/101
[2020-02-27] MEDS: TEMAZEPAM 15 MG CAPSULE PO SCH (20:40)
--- NOTE | 2020-02-27 20:41 | NUR ---
Patient refusing all scheduled medications this HS stating, "...I don't want them". Patient educated on use/need for each medication and continues to refuse administration. Medications non-administered on eMAR and no other needs voiced by patient at this time.
[2020-02-27 23:00] VITALS: BP 138/89
[2020-02-28 03:00] VITALS: BP 140/86
[2020-02-28 07:00] VITALS: BP 131/70
[2020-02-28] MEDS: INSULIN LISPRO 300 UNITS/3 ML VIAL. SQ SCH ×4 (07:30→11:46)
[2020-02-28 07:51] LABS: CALCIUM 9.1 mg/dL (8.5-10.1); GFR 6.8; POTASSIUM 5.9 mmol/L (3.5-5.1)
[2020-02-28] MEDS: VERAPAMIL 40 MG TABLET. PO SCH (08:52)
[2020-02-28] MEDS: LOSARTAN POTASSIUM 50 MG TABLET. PO SCH (08:53)
[2020-02-28] MEDS: BACLOFEN 10 MG TABLET. PO SCH ×2 (08:53→14:00)
[2020-02-28] MEDS: INSULIN GLARGINE SYRINGE. SQ SCH (08:53)
--- NOTE | 2020-02-28 10:19 | PDOC ---
PROGRESS NOTES Date of Service: DATE: 02/28/20 TIME: 10:19 Chief Complaint Chief Complaint discharge dx Bilateral leg weakness Physical debility Type 2 diabetes with hyperglycemia Malnutrition Plan: We will admit patient and consult nephrology to continue his hemodialysis Consults wound care physician for chronic bilateral lower extremity wounds PT/OT intake longterm Resume home insulin basal/prandial regimen with high-dose sliding scale Resume home medications FEN - ADA diet PPX - warfarin FULL CODE Dispo - inpatient for above d/c planning 34 min refusing home health, "states is will not work for me" 02-27 History of Present Illness History of Present Illness Patient is 64-year-old male past medical history end-stage renal disease, who c natalyalains of ER with complaints of worsening bilateral lower extremity weakness for the past month. Patient states he is normally able to ambulate with his walker, recently reports difficulty able to get out of his chair. States he was told to start outpatient physical therapy recently, but has been unable to get a ride to his appointment. Patient denies any recent fevers, chills, shortness of breath. 02/22: Patient seen with with physical therapy this morning. Reportedly his heart has been fixed. is at bedside and is adamant about patient going to longterm for inpatient physical therapy. Patient is finally agreeable to SNF. 02/23: Patient seen and evaluated bedside. He states he does not feel well, complaining of shortness of breath and bilateral hand pain, cramping in nature. He has history of similar pain when he has too much fluid removed from hemodialysis, and states he had roughly 6 L removed today. Patient is currently breathing on supplemental oxygen by nasal cannula. He is afebrile, denies chest pain, denies nausea. Will obtain chest x-ray. I do believe patient would benefit from inpatient longterm, and is adamant that he will not come home until he receives SNF. 02/24: Patient with some shortness of breath and hand cramping yesterday after hemodialysis, but has resolved. Chest x-ray shows no acute process. Plan is inpatient longterm, hopefully on Thursday. Patient's is requesting that she is updated when he is transferred to SNF. 02/26: Patient seen and evaluated bedside. no Events overnight. Plan is longterm, Patient's is requesting that she is updated when he is transferred to SNF. Vitals Vitals Vital Signs Date Time Temp Pulse Resp B/P (MAP) Pulse Ox O2 Delivery O2 Flow Rate FiO2 02/28/20 08:00 Room Air 02/28/20 07:00 98.3 97 16 131/70 (90) 95 98.3 02/27/20 07:00 2.0 Physical Exam General: Alert, Oriented X3, Cooperative, No acute distress Heart: Regular rate, Normal S1 Lungs: Clear, Crackles Abdomen: Normal bowel sounds, Soft, No tenderness Extremities: No clubbing, No cyanosis Skin: No significant lesion Labs LABS Laboratory Tests Test 02/27/20 20:27 02/28/20 05:50 02/28/20 07:25 Glucose (Fingerstick) 74 mg/dL (70-99) 92 mg/dL (70-99) Sodium Level 130 mmol/L (136-145) Potassium Level 5.9 mmol/L (3.5-5.1) Chloride Level 93 mmol/L (98-107) Carbon Dioxide Level 26 mmol/L (21-32) Anion Gap 11 (6-14) Blood Urea Nitrogen 35 mg/dL (8-26) Creatinine 8.0 mg/dL (0.7-1.3) Estimated GFR (Cockcroft-Gault) 6.8 Glucose Level 76 mg/dL (70-99) Calcium Level 9.1 mg/dL (8.5-10.1) Assessment and Plan Assessmemt and Plan Problems Medical Problems: (1) Chronic kidney disease, stage IV (severe) Status: Acute (2) Inability to ambulate due to multiple joints Status: Acute Comment Review of Relevant I have reviewed the following items joyce (where applicable) has been applied. Labs Laboratory Tests Test 02/27/20 04:54 02/27/20 07:22 02/27/20 08:53 02/27/20 20:27 Glucose (Fingerstick) 139 mg/dL (70-99) 131 mg/dL (70-99) 74 mg/dL (70-99) Prothrombin Time 33.0 SEC (11.7-14.0) Prothromb Time International Ratio 3.2 (0.8-1.1) Sodium Level 125 mmol/L (136-145) Potassium Level 5.2 mmol/L (3.5-5.1) Chloride Level 89 mmol/L (98-107) Carbon Dioxide Level 21 mmol/L (21-32) Anion Gap 15 (6-14) Blood Urea Nitrogen 53 mg/dL (8-26) Creatinine 9.6 mg/dL (0.7-1.3) Estimated GFR (Cockcroft-Gault) 5.5 Glucose Level 154 mg/dL (70-99) Calcium Level 9.3 mg/dL (8.5-10.1) Test 02/28/20 05:50 02/28/20 07:25 Sodium Level 130 mmol/L (136-145) Potassium Level 5.9 mmol/L (3.5-5.1) Chloride Level 93 mmol/L (98-107) Carbon Dioxide Level 26 mmol/L (21-32) Anion Gap 11 (6-14) Blood Urea Nitrogen 35 mg/dL (8-26) Creatinine 8.0 mg/dL (0.7-1.3) Estimated GFR (Cockcroft-Gault) 6.8 Glucose Level 76 mg/dL (70-99) Calcium Level 9.1 mg/dL (8.5-10.1) Glucose (Fingerstick) 92 mg/dL (70-99) Laboratory Tests Test 02/27/20 20:27 02/28/20 05:50 02/28/20 07:25 Glucose (Fingerstick) 74 mg/dL (70-99) 92 mg/dL (70-99) Sodium Level 130 mmol/L (136-145) Potassium Level 5.9 mmol/L (3.5-5.1) Chloride Level 93 mmol/L (98-107) Carbon Dioxide Level 26 mmol/L (21-32) Anion Gap 11 (6-14) Blood Urea Nitrogen 35 mg/dL (8-26) Creatinine 8.0 mg/dL (0.7-1.3) Estimated GFR (Cockcroft-Gault) 6.8 Glucose Level 76 mg/dL (70-99) Calcium Level 9.1 mg/dL (8.5-10.1) Medications Current Medications Acetaminophen (Tylenol) 500 mg PRN BID PRN PO MILD PAIN 1-3; Start 02/22/20 at 08:15; Stop 02/22/20 at 14:45; Status DC Baclofen (Lioresal) 5 mg TID PO Last administered on 02/26/20at 21:52; Start 02/22/20 at 09:00 Losartan Potassium (Cozaar) 25 mg DAILY PO Last administered on 02/26/20at 08:25; Start 02/22/20 at 09:00 Ondansetron HCl (Zofran Odt) 4 mg PRN BID PRN PO NAUSEA/VOMITING; Start 02/22/20 at 08:15 Temazepam (Restoril) 15 mg QHS PO Last administered on 02/26/20at 21:52; Start 02/22/20 at 21:00 Warfarin Sodium (Coumadin) 5 mg DAILY PO ; Start 02/22/20 at 09:00; Stop 02/22/20 at 10:37; Status DC Insulin Glargine (Lantus Syringe) 35 unit BID SQ Last administered on 02/26/20at 21:53; Start 02/22/20 at 09:30 Insulin Human Lispro (HumaLOG) 50 units BIDACBL SQ Last administered on 02/27/20at 08:33; Start 02/22/20 at 09:00 Psyllium Hydrophilic Mucilloid (Metamucil Fiber Packet) 1 pkt PRN QHS PRN PO BOWEL PROGRAM; Start 02/22/20 at 21:00 Verapamil HCl (Calan) 160 mg BID PO Last administered on 02/26/20at 21:51; Start 02/22/20 at 09:15 Insulin Human Lispro (HumaLOG) 0-9 UNITS TIDWMEALS SQ Last administered on 02/26/20at 17:22; Start 02/22/20 at 12:00 Dextrose (Dextrose 50%-Water Syringe) 12.5 gm PRN Q15MIN PRN IV SEE COMMENTS Last administered on 02/22/20at 16:57; Start 02/22/20 at 08:30 Ondansetron HCl (Zofran) 4 mg PRN Q6HRS PRN IVP NAUSEA/VOMITING; Start 02/22/20 at 08:30 Al Hydroxide/Mg Hydroxide (Mylanta Plus Xs) 30 ml PRN Q3HRS PRN PO HEARTBURN / GAS; Start 02/22/20 at 08:30 Calcium Carbonate/ Glycine (Tums) 500 mg PRN Q3HRS PRN PO UPSET STOMACH; Start 02/22/20 at 08:30 Zolpidem Tartrate (Ambien) 5 mg PRN QHS PRN PO INSOMNIA, MAY REPEAT IN 1HR; Start 02/22/20 at 08:30 Morphine Sulfate (Morphine Sulfate) 2 mg PRN Q1HR PRN IV MODERATE TO SEVERE PAIN; Start 02/22/20 at 08:30 Acetaminophen/ Hydrocodone Bitart (Lortab 5/325) 1 tab PRN Q4HRS PRN PO MILD PAIN 1-3; Start 02/22/20 at 08:30 Acetaminophen (Tylenol) 650 mg PRN Q6HRS PRN PO Headaches, Temp > 101.5F; Start 02/22/20 at 08:30 Magnesium Hydroxide (Milk Of Magnesia) 2,400 mg PRN Q12HR PRN PO CONSTIPATION; Start 02/22/20 at 08:30 Bisacodyl (Dulcolax Supp) 10 mg PRN DAILY PRN OR CONSTIPATION; Start 02/22/20 at 08:30 Warfarin Sodium (Coumadin Per Pharmacy) 1 each PRN DAILY PRN MC SEE COMMENTS Last administered on 02/27/20at 10:26; Start 02/22/20 at 08:45 Sodium Chloride 1,000 ml @ 1,000 mls/hr Q1H PRN IV hypotension; Start 02/22/20 at 10:46; Stop 02/22/20 at 16:45; Status DC Albumin Human 200 ml @ 200 mls/hr 1X PRN PRN IV Hypotension; Start 02/22/20 at 11:00; Stop 02/22/20 at 16:59; Status DC Sodium Chloride 1,000 ml @ 400 mls/hr Q2H30M PRN IV PATENCY; Start 02/22/20 at 10:46; Stop 02/22/20 at 22:45; Status DC Info (PHARMACY MONITORING -- do not chart) 1 each PRN DAILY PRN MC SEE COMMENTS; Start 02/22/20 at 11:00; Stop 02/24/20 at 07:56; Status DC Warfarin Sodium (Coumadin - No Dose Today) 1 each 1X WARF ONCE MC Last administered on 02/22/20at 16:00; Start 02/22/20 at 16:00; Stop 02/22/20 at 16:01; Status DC Warfarin Sodium (Coumadin) 5 mg 1X WARF ONCE PO Last administered on 02/23/20at 17:12; Start 02/23/20 at 16:00; Stop 02/23/20 at 16:01; Status DC Sodium Chloride 1,000 ml @ 1,000 mls/hr Q1H PRN IV hypotension; Start 02/24/20 at 07:50; Stop 02/24/20 at 13:49; Status DC Diphenhydramine HCl (Benadryl) 25 mg 1X PRN PRN IV ITCHING; Start 02/24/20 at 08:00; Stop 02/25/20 at 07:59; Status DC Diphenhydramine HCl (Benadryl) 25 mg 1X PRN PRN IV ITCHING; Start 02/24/20 at 08:00; Stop 02/25/20 at 07:59; Status DC Sodium Chloride 1,000 ml @ 400 mls/hr Q2H30M PRN IV PATENCY; Start 02/24/20 at 07:50; Stop 02/24/20 at 19:49; Status DC Info (PHARMACY MONITORING -- do not chart) 1 each PRN DAILY PRN MC SEE COMMENTS; Start 02/24/20 at 08:00 Warfarin Sodium (Coumadin) 5 mg 1X WARF ONCE PO Last administered on 02/24/20at 17:25; Start 02/24/20 at 16:00; Stop 02/24/20 at 16:01; Status DC Warfarin Sodium (Coumadin) 5 mg DAILY16 PO Last administered on 02/25/20at 17:44; Start 02/25/20 at 16:00; Stop 02/26/20 at 11:01; Status DC Warfarin Sodium (Coumadin) 4 mg 1X WARF ONCE PO Last administered on 02/26/20at 17:18; Start 02/26/20 at 16:00; Stop 02/26/20 at 16:01; Status DC Sodium Chloride 1,000 ml @ 1,000 mls/hr Q1H PRN IV hypotension; Start 02/27/20 at 08:02; Stop 02/27/20 at 14:01; Status DC Sodium Chloride 1,000 ml @ 400 mls/hr Q2H30M PRN IV PATENCY; Start 02/27/20 at 08:02; Stop 02/27/20 at 20:01; Status DC Info (PHARMACY MONITORING -- do not chart) 1 each PRN DAILY PRN MC SEE COMMENTS; Start 02/27/20 at 08:15 Warfarin Sodium (Coumadin) 2 mg 1X WARF ONCE PO ; Start 02/27/20 at 16:00; Stop 02/27/20 at 16:01; Status DC Active Scripts Active Admelog (Insulin Lispro) 100 Unit/1 Ml Vial 0 Units SQ TIDWMEALS 30 Days Hydrocodone-Apap 5-325 (Hydrocodone Bit/Acetaminophen) 1 Tab Tablet 1 Tab PO PRN Q4HRS PRN 14 Days Warfarin Sodium 5 Mg Tablet 4 Mg PO DAILY 30 Days Baclofen 10 Mg Tablet 5 Mg PO TID Zofran Odt (Ondansetron) 4 Mg Tab.rapdis 4 Mg PO BID PRN Reported Metamucil (Psyllium Husk) 0.52 Gm Capsule 1 Cap PO HS PRN 30 Days Temazepam 15 Mg Capsule 1 Cap PO QHS Losartan Potassium 50 Mg Tablet 25 Mg PO DAILY Verapamil Hcl 80 Mg Tablet 2 Tab PO BID Lantus Solostar (Insulin Glargine,Hum.rec.anlog) 100 Unit/1 Ml Insuln.pen 35 Unit SQ BIDAC PRN Acetaminophen 500 Mg Tablet 1 Tab PO BID PRN Renal Vitamin Tablet (Folic Acid/Vit Bcomp,C) 0.8 Mg Tablet 0.8 Mg PO DAILY Humalog (Insulin Lispro) 100 Unit/1 Ml Insuln.pen 50 Unit SQ BIDACBL Vitals/I & O Vital Sign - Last 24 Hours 02/27/20 02/27/20 02/27/20 02/27/20 15:00 19:00 20:00 20:39 Temp 98.0 98.0 98.0 98.0 Pulse 78 91 91 Resp 18 18 B/P (MAP) 130/68 (88) 154/101 (118) 154/101 Pulse Ox 100 96 O2 Delivery Room Air Room Air Room Air 02/27/20 02/28/20 02/28/20 02/28/20 23:00 03:00 07:00 08:00 Temp 98.0 98.2 98.3 98.0 98.2 98.3 Pulse 98 97 97 Resp 18 18 16 B/P (MAP) 138/89 (105) 140/86 (104) 131/70 (90) Pulse Ox 96 96 95 O2 Delivery Room Air Room Air Room Air Room Air Intake and Output 02/27/20 02/27/20 02/28/20 15:00 23:00 07:00 Intake Total 120 ml 100 ml Balance 120 ml 100 ml Justicifation of Admission Dx: Justifications for Admission: Justification of Admission Dx: Yes Chronic Renal Failure: Hypertension Cellulitis: Cellulitis AMADA BRYANT MD Feb 28, 2020 10:19
[2020-02-28 10:25] LABS: PROTHROMBIN TIME PATIENT 33.9 SEC (11.7-14.0)
[2020-02-28 11:00] VITALS: BP 124/68
--- NOTE | 2020-02-28 12:26 | SNU/HH DC ---
DISCHARGE ORDERS DISCHARGE INFORMATION: DISCHARGE DATE: Feb 28, 2020 FINAL DIAGNOSIS Problems Medical Problems: (1) Chronic kidney disease, stage IV (severe) Status: Acute (2) Inability to ambulate due to multiple joints Status: Acute CONDITION ON DISCHARGE: Stable CODE STATUS: Code Status: Full CARE HOME: SNF STAY <30 DAYS: Yes HOSPICE: HOSPICE: No HOSPICE EVAL & TREAT: No LTAC: ADMIT TO LTAC: No POST DISCHARGE ORDERS: ACTIVITY ORDERS: Activity as tolerated WEIGHT BEARING STATUS: As tolerated BATHING ORDERS: Shower-keep dressing dry DIET AFTER DISCHARGE: Renal WOUND/INCISION CARE: Change dressing, Reinforce dressing PRN OTHER WOUND INSTRUCTIONS: TO WOUND CLINIC 3 X A WEEK CHECKS AFTER DISCHARGE: CHECKS AFTER DISCHARGE: Check blood press - daily, Check blood sugar, ac/hs, Weigh Yourself Daily FOLLOW-UP: PHYSICIAN FOLLOW-UP: NEPHROLOGY DIRECTED LAB ORDERS FOR FOLLOW-UP: DAILY INR X 3 DAYS ANTICOAGULATION F/U NEEDED: INR X 3 DAYS, ADJUST DOSE INDICATED TREATMENT/EQUIPMENT ORDERS: ADAPTIVE EQUIPMENT NEEDED: None Physical Therapy For: Evalulation/Treatment Occupational Therapy For: Evaluation/Treatment Speech Language Pathology For: Evaluation/Treatment DISCHARGE MEDICATIONS: Home Meds Active Scripts Insulin Lispro (Admelog) 100 Unit/1 Ml Vial, 0 UNITS SQ TIDWMEALS for DIABETES for 30 Days, #2 EACH Prov:AMADA BRYANT MD 02/27/20 Hydrocodone Bit/Acetaminophen (HYDROCODONE-APAP 5-325 ) 1 Tab Tablet, 1 TAB PO PRN Q4HRS PRN for MILD PAIN 1-3 for 14 Days, #40 TAB Prov:AMADA BRYANT MD 02/27/20 Warfarin Sodium (WARFARIN SODIUM) 5 Mg Tablet, 4 MG PO DAILY for DVT Hx for 30 Days, #24 TAB Prov:AMADA BRYANT MD 02/27/20 Baclofen (BACLOFEN) 10 Mg Tablet, 5 MG PO TID for back pain, #90 TAB 0 Refills Prov:DENISE LOPEZ MD 01/13/20 Ondansetron (ZOFRAN ODT) 4 Mg Tab.rapdis, 4 MG PO BID PRN for NAUSEA/VOMITING, #10 TAB Prov:JASWINDER DOMINGUEZ DO 06/26/17 Reported Medications Psyllium Husk (METAMUCIL) 0.52 Gm Capsule, 1 CAP PO HS PRN for bowel program for 30 Days, #30 CAP 0 Refills 01/10/20 Temazepam (TEMAZEPAM) 15 Mg Capsule, 1 CAP PO QHS for insomia, #30 CAP 1 Refill 12/16/19 Losartan Potassium (LOSARTAN POTASSIUM) 50 Mg Tablet, 25 MG PO DAILY for HYPERTENSION, TAB 12/16/19 Verapamil Hcl (VERAPAMIL HCL) 80 Mg Tablet, 2 TAB PO BID for htn, TAB 12/16/19 Insulin Glargine,Hum.rec.anlog (LANTUS SOLOSTAR) 100 Unit/1 Ml Insuln.pen, 35 U NIT SQ BIDAC PRN for rx, #15 ML 3 Refills 09/27/19 Acetaminophen (ACETAMINOPHEN) 500 Mg Tablet, 1 TAB PO BID PRN for PAIN, #60 TAB 1 Refill 08/26/18 Folic Acid/Vit Bcomp,C (Renal Vitamin Tablet) 0.8 Mg Tablet, 0.8 MG PO DAILY 05/22/16 Insulin Lispro (HUMALOG) 100 Unit/1 Ml Insuln.pen, 50 UNIT SQ BIDACBL, SYR 05/22/16 Discontinued Reported Medications Insulin Lispro (HUMALOG) 100 Unit/1 Ml Vial, 60 UNIT SQ DAILYWSUP for rx, VIAL 09/27/19 AMADA BRYANT MD Feb 28, 2020 12:26
--- NOTE | 2020-02-28 14:15 | PDOC ---
DATE OF SERVICE DATE: 02/28/20 TIME: 14:11 SUBJECTIVE ROS stable OBJECTIVE Vital Signs Vital Signs Date Time Temp Pulse Resp B/P (MAP) Pulse Ox O2 Delivery O2 Flow Rate FiO2 02/28/20 11:00 97.9 98 18 124/68 (86) 96 Room Air 97.9 02/27/20 07:00 2.0 I & 0 Intake and Output 02/28/20 07:00 Intake Total 220 ml Balance 220 ml Intake Oral 220 ml PHYSICAL EXAM Physical Exam General Appearance: no apparent distress Skin: warm Heart: S1S2 Abdomen: soft, bowel sounds present Extremities: pulses present Neurology: alert DIAGNOSIS/ASSESSMENT Assessment & Plan ESRD - On HD Seen on HD, tolerating well , continue as tolerated , Nestor Lance HyperKalemia- Hold Losartan , if No EKG changes Temporizing measures Anemia HTN Non Compliance COMMENT/RELEVANT DATA Meds Current Medications Medications (Trade) Dose Ordered Sig/Cristian Start Time Stop Time Status Last Admin Dose Admin Acetaminophen (Tylenol) 650 mg PRN Q6HRS PRN 02/22/20 08:30 Acetaminophen/ Hydrocodone Bitart (Lortab 5/325) 1 tab PRN Q4HRS PRN 02/22/20 08:30 Al Hydroxide/Mg Hydroxide (Mylanta Plus Xs) 30 ml PRN Q3HRS PRN 02/22/20 08:30 Albumin Human 200 ml @ 200 mls/hr 1X PRN PRN 02/22/20 11:00 02/22/20 16:59 DC Baclofen (Lioresal) 5 mg TID 02/22/20 09:00 02/26/20 21:52 5 MG Bisacodyl (Dulcolax Supp) 10 mg PRN DAILY PRN 02/22/20 08:30 Calcium Carbonate/ Glycine (Tums) 500 mg PRN Q3HRS PRN 02/22/20 08:30 Dextrose (Dextrose 50%-Water Syringe) 12.5 gm PRN Q15MIN PRN 02/22/20 08:30 02/22/20 16:57 25 GM Diphenhydramine HCl (Benadryl) 25 mg 1X PRN PRN 02/24/20 08:00 02/25/20 07:59 DC Info (PHARMACY MONITORING -- do not chart) 1 each PRN DAILY PRN 02/27/20 08:15 Insulin Glargine (Lantus Syringe) 35 unit BID 02/22/20 09:30 02/26/20 21:53 35 UNIT Insulin Human Lispro (HumaLOG) 0-9 UNITS TIDWMEALS 02/22/20 12:00 02/26/20 17:22 5 UNITS Losartan Potassium (Cozaar) 25 mg DAILY 02/22/20 09:00 02/26/20 08:25 25 MG Magnesium Hydroxide (Milk Of Magnesia) 2,400 mg PRN Q12HR PRN 02/22/20 08:30 Morphine Sulfate (Morphine Sulfate) 2 mg PRN Q1HR PRN 02/22/20 08:30 Ondansetron HCl (Zofran Odt) 4 mg PRN BID PRN 02/22/20 08:15 Ondansetron HCl (Zofran) 4 mg PRN Q6HRS PRN 02/22/20 08:30 Psyllium Hydrophilic Mucilloid (Metamucil Fiber Packet) 1 pkt PRN QHS PRN 02/22/20 21:00 Sodium Chloride 1,000 ml @ 400 mls/hr Q2H30M PRN 02/27/20 08:02 02/27/20 20:01 DC Temazepam (Restoril) 15 mg QHS 02/22/20 21:00 02/26/20 21:52 15 MG Verapamil HCl (Calan) 160 mg BID 02/22/20 09:15 02/26/20 21:51 160 MG Warfarin Sodium (Coumadin - No Dose Today) 1 each 1X WARF ONCE 02/22/20 16:00 02/22/20 16:01 DC 02/22/20 16:00 1 EACH Warfarin Sodium (Coumadin Per Pharmacy) 1 each PRN DAILY PRN 02/22/20 08:45 02/27/20 10:26 1 EACH Warfarin Sodium (Coumadin) 2 mg 1X WARF ONCE 02/27/20 16:00 02/27/20 16:01 DC Zolpidem Tartrate (Ambien) 5 mg PRN QHS PRN 02/22/20 08:30 Lab Laboratory Tests Test 02/27/20 20:27 02/28/20 05:50 02/28/20 07:25 02/28/20 11:04 Glucose (Fingerstick) 74 mg/dL (70-99) 92 mg/dL (70-99) 106 mg/dL (70-99) Prothrombin Time 33.9 SEC (11.7-14.0) Prothromb Time International Ratio 3.3 (0.8-1.1) Sodium Level 130 mmol/L (136-145) Potassium Level 5.9 mmol/L (3.5-5.1) Chloride Level 93 mmol/L (98-107) Carbon Dioxide Level 26 mmol/L (21-32) Anion Gap 11 (6-14) Blood Urea Nitrogen 35 mg/dL (8-26) Creatinine 8.0 mg/dL (0.7-1.3) Estimated GFR (Cockcroft-Gault) 6.8 Glucose Level 76 mg/dL (70-99) Calcium Level 9.1 mg/dL (8.5-10.1) Results All relevant outside records, renal labs, imaging studies, telemetry/EKG's were reviewed. Justicifation of Admission Dx: Justifications for Admission: Justification of Admission Dx: Yes Chronic Renal Failure: Hypertension Cellulitis: Cellulitis ANABEL GARSIA MD Feb 28, 2020 14:14
--- NOTE | 2020-02-28 14:22 | NUR ---
Called and gave report to Radha @ [facility].
[2020-02-28 15:00] VITALS: BP 112/62
--- NOTE | 2020-02-28 15:00 | NUR ---
Wound/Ostomy Care Wound Type/Assessment: Attempted to see pt for follow up, pt is ready for discharge, R heel dressing pulled back to assess. Patient has a DFU to the right heel, mostly healed and reepithelialized, and a healed stage II pressure ulcer on the right buttock. Treatment Recommendations/Plan: Recommendations for contact layer or vasoline gauze and Aquacel foam to the right heel, change every 3-4 days, then a medi-weatherization and housing inspector applied to the right leg. Calazime ointment to the buttocks. Education provided: Patient educated on turning and staying off right buttock. Patient is able to turn with minimal assistance. Offloading surface/device: Patient wears heel relief shoe on right foot when ambulating, wedge, pillows and w/c cushion for continued buttocks offloading. Recommended Referrals/Tests: n/a Discharge Recommendations for dressings: See treatment plan above. No other wounds noted. Pt may f/u in the [facility] if he wishes, but heel wound is nearly closed.
--- NOTE | 2020-02-28 15:58 | NUR ---
Pt discharged to [place]. packed belongings. Assisted to wheelchair and was taken to main entrance and secured in van with transport.
== END 2020-02-28 15:59 | DRG 682 ==
LOC: ER 02:44 → 4 NORTH 03:56
PROVIDERS: ADMIT Internal Medicine; ATTEND Internal Medicine
PROC: 5A1D70Z Performance of Urinary Filtration, Intermittent, Less than 6 Hours Per Day (ICD-10-PCS; 2020-02-22)
PROC: 5A1D70Z Performance of Urinary Filtration, Intermittent, Less than 6 Hours Per Day (ICD-10-PCS; 2020-02-24)
PROC: 5A1D70Z Performance of Urinary Filtration, Intermittent, Less than 6 Hours Per Day (ICD-10-PCS; principal; 2020-02-27)
DX: I12.0 Hypertensive chronic kidney disease with stage 5 chronic kidney disease or end stage renal disease (principal); N18.6 End stage renal disease; E46 Unspecified protein-calorie malnutrition; D64.9 Anemia, unspecified; E11.22 Type 2 diabetes mellitus with diabetic chronic kidney disease; E11.65 Type 2 diabetes mellitus with hyperglycemia; E21.3 Hyperparathyroidism, unspecified; E11.40 Type 2 diabetes mellitus with diabetic neuropathy, unspecified; E78.5 Hyperlipidemia, unspecified; J44.9 Chronic obstructive pulmonary disease, unspecified; Z82.49 Family history of ischemic heart disease and other diseases of the circulatory system; Z83.3 Family history of diabetes mellitus; Z87.891 Personal history of nicotine dependence; Z91.19 Patient's noncompliance with other medical treatment and regimen; Z86.718 Personal history of other venous thrombosis and embolism; Z90.49 Acquired absence of other specified parts of digestive tract; Z68.37 Body mass index [BMI] 37.0-37.9, adult; Z20.828 Contact with and (suspected) exposure to other viral communicable diseases
CPT/HCPCS: 36415; 71045; 80048; 80053; 82962; 84484; 85025; 85610; 86140; 93005; J1815; U0003; 97110-GP; 97116-GP; 97530-GP; 99285-25; G0378

== ENCOUNTER 2020-04-28 02:40 | Inpatient (IN) | payer MEDICARE, OTHER ==
[~2020-04-28] VITALS: Ht 193 cm; Wt 148.9 kg
[~2020-04-28 02:40] MED LIST changes: +HYDR-2761 PO; +INSU100V35 SQ; -LISI-334 PO; +LISI20TA18 PO; -MULT1TAB90 PO; +MULT1TAB92 PO
[2020-04-28 03:18] LABS: BASO # 0.2 x10^3/uL (0.0-0.2); BASO % 2 % (0-3); EOS # 0.4 x10^3/uL (0.0-0.7); EOS % 5 % (0-3); HEMATOCRIT 33.4 % (39.0-53.0); HEMOGLOBIN 11.3 g/dL (13.0-17.5); LYMPH # 1.2 x10^3/uL (1.0-4.8); LYMPH % 12 % (24-48); MEAN CORPUSCULAR HEMOGLOBIN 31 pg (25-35); MEAN CORPUSCULAR HGB CONC 34 g/dL (31-37); MEAN CORPUSCULAR VOLUME 91 fL (79-100); MONO # 0.5 x10^3/uL (0.0-1.1); MONO % 5 % (0-9); NEUT # 7.7 x10^3/uL (1.8-7.7); NEUT % 77 % (31-73); PLATELET COUNT 150 x10^3/uL (140-400); RED BLOOD COUNT 3.67 x10^6/uL (4.30-5.70); RED CELL DISTRIBUTION WIDTH 18.2 % (11.5-14.5)
[2020-04-28 03:23] LABS: PROTHROMBIN TIME PATIENT 20.2 SEC (11.7-14.0)
[2020-04-28] MEDS ORDERED: fentaNYL PF VIAL 100 MCG/2 ML VIAL IV ONE ×2 (03:30→04:00)
[2020-04-28] MEDS ORDERED: FAMOTIDINE 20 MG/2 ML VIAL IVP ONE (03:30)
[2020-04-28] MEDS ORDERED: IV NORMAL SALINE 500ML BAG 500 ML IV ONE (03:30)
[2020-04-28 03:44] LABS: CALCIUM 9.7 mg/dL (8.5-10.1); CREATININE 7.3 mg/dL (0.7-1.3); GFR 7.6; POTASSIUM 5.1 mmol/L (3.5-5.1)
[2020-04-28 03:49] LABS: ALBUMIN 2.9 g/dL (3.4-5.0); ALBUMIN/GLOBULIN RATIO 0.5 (1.0-1.7); MAGNESIUM 2.4 mg/dL (1.8-2.4); TOTAL BILIRUBIN 0.8 mg/dL (0.2-1.0); TOTAL PROTEIN 8.2 g/dL (6.4-8.2)
[2020-04-28] MEDS ORDERED: MORPHINE SULFATE 4 MG/ML VIAL. IV PRN (04:00)
--- NOTE | 2020-04-28 04:22 | RAD ---
PQRS Compliance Statement: One or more of the following individualized dose reduction techniques were utilized for this examinat ion: 1. Automated exposure control 2. Adjustment of the mA and/or kV according to patient size 3. Use of iterative reconstruction technique CT abdomen/pelvis without contrast 04/28/2020 3:03 AM INDICATION: Right-sided abdominal pain COMPARISON: CT abdomen/pelvis 08/25/2018 TECHNIQUE: Multiple axial CT images of the abdomen and pelvis were obtained without intravenous contr ast. Coronal and sagittal reformats are provided. FINDINGS: Small bilateral pleural effusions with adjacent compressive atelectasis. Mild pulmonary vascular lisa estion. Constellation of findings may be seen with congestive heart failure. Heart size is within nor mal limits. Evaluation of solid abdominal viscera is limited by lack of intravenous contrast. Liver, bilateral adrenal glands and gallbladder are normal in appearance. Extensive motion artifact limits e valuation of the upper abdomen. Calcifications within the spleen likely represent sequela prior granu lomatous exposure. Moderate fatty atrophy of the pancreas. Abdominal aorta is normal in course and ca liber. Left periaortic lymphadenopathy is identified measuring up to 1.4 cm short axis (series 2, eliane ge 38). Findings appear increased since prior examination. Bilateral external iliac lymphadenopathy i s noted measuring up to 2.3 cm along the right external iliac distribution, increased from 1.8 cm . R ight inguinal lymph node is enlarged, stable measuring 1.9 cm. Additional right inguinal lymph node h as increased in size measuring 1.7 cm (series 2, image 115), previously measuring 1.4 cm. There is ne w hazy attenuation within the root of small bowel mesentery which may represent mesenteric adenitis. Findings are not centered along a specific vessel. Thrombophlebitis could have similar appearance. IV C filter is present. There is atrophy of the kidneys bilaterally. More confluent edema identified in the left lower quadrant of the abdomen and pelvis. Urinary bladder is decompressed. No suspicious pel daria mass. There are 2 left ventral abdominal wall hernias containing nondilated small bowel along the inferior hernia measuring 7.2 cm and containing small large bowel in the superior measuring 6.2 cm. No bowel o bstruction or inflammation. Appendix is not definitively visualized. No pericecal inflammatory change s are identified. Stomach is normal in appearance. No suspicious osseous normality. IMPRESSION: 1. Small bilateral pleural effusions with adjacent compressive atelectasis. Mild pulmonary vascular congestion may be seen with congestive heart failure. 2. Retroperitoneal and pelvic lymphadenopathy, as detailed above. Findings have progressed. Findings may be reactive, however, lymphoproliferative disorder such as lymphoma cannot be excluded. 3. There is new hazy attenuation within the root of small bowel mesentery which may represent mesent angel adenitis. Findings are not centered along a specific vessel. Thrombophlebitis could have similar appearance. Contrast-enhanced examination could be of benefit. 4. There are 2 left ventral abdominal wall hernias containing nondilated small bowel and large bowel . No bowel obstruction or inflammation. 5. There is diffuse subcutaneous edema along the flanks which may reflect anasarca. Small volume abd ominal ascites. 6. Limited evaluation of the upper abdomen secondary to significant motion artifact. 7. Appendix is not definitively visualized. Electronically signed by: Marie Duncan MD (04/28/2020 4:20 AM) [facility]
--- NOTE | 2020-04-28 05:10 | PHYS DOC ---
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 Patient reports "I think I have appendicitis ". Patient was given hydrocodone by nursing staff at [facility] at approximately 0125 but the pain continued to be present and therefore decision to present patient to the ER for further evaluation. Patient denies known exposure to COVID-19. Reports was tested for COVID-19 on Thursday which was negative. Denies trauma. Denies fever or chills. Patient does report prior history of colectomy. Patient also reports past me dical history of end-stage renal disease on hemodialysis Thursday/Thursday/Thursday. Patient reports he was post to have dialysis on secondary to the holiday but was unable to get it scheduled. Patient therefore is currently scheduled for a Thursday dialysis session. Review of Systems: Review of Systems: Constitutional: Denies fever or chills Eyes: Denies redness or eye pain HENT: Denies nasal congestion or sore throat Respiratory: Denies cough or shortness of breath Cardiovascular: Denies chest pain or palpitations GI: Reports abdominal pain and nausea : Denies dysuria or hematuria Musculoskeletal: Denies back pain or joint pain Integument: Denies rash or skin lesions Neurologic: Denies headache, focal weakness or sensory changes Complete systems were reviewed and found to be within normal limits, except as documented in this note. Current Medications: Current Medications Medications (Trade) Dose Ordered Sig/Cristian Start Time Stop Time Status Last Admin Dose Admin Famotidine (Pepcid Vial) 20 mg 1X ONCE 04/28/20 03:30 04/28/20 03:31 DC 04/28/20 03:18 20 MG Fentanyl Citrate (Fentanyl 2ml Vial) 50 mcg 1X ONCE 04/28/20 04:00 04/28/20 04:01 DC Sodium Chloride 500 ml @ 500 mls/hr 1X ONCE 04/28/20 03:30 04/28/20 04:29 DC 04/28/20 03:19 500 MLS/HR Allergies: Allergies: Allergies Coded Allergies Type Severity Reaction Last Updated Verified No Known Drug Allergies 09/27/19 No Physical Exam: PE: Constitutional: Well developed, obese, uncomfortable, non-toxic appearance HENT: Normocephalic, atraumatic Eyes: Conjunctiva normal, no discharge Neck: Normal range of motion, no tenderness, supple Lungs & Thorax: No respiratory distress, equal chest rise and fall Abdomen: Soft, diffuse tenderness but worse to right abdomen, no guarding, reports rebound tenderness, mild distention Skin: Warm, dry, no erythema, no rash Back: No tenderness, no CVA tenderness Extremities: No tenderness, ROM intact, no edema Neurologic: Alert and oriented X 3, normal motor function, normal sensory function, no focal deficits noted Psychologic: Affect normal, judgment normal Current Patient Data: Labs: Laboratory Tests Test 04/28/20 02:55 04/28/20 03:05 Prothrombin Time 20.2 SEC (11.7-14.0) H Prothrombin Time INR 1.8 (0.8-1.1) H White Blood Count 10.0 x10^3/uL (4.0-11.0) Red Blood Count 3.67 x10^6/uL (4.30-5.70) L Hemoglobin 11.3 g/dL (13.0-17.5) L Hematocrit 33.4 % (39.0-53.0) L Mean Corpuscular Volume 91 fL (79-100) Mean Corpuscular Hemoglobin 31 pg (25-35) Mean Corpuscular Hemoglobin Concent 34 g/dL (31-37) Red Cell Distribution Width 18.2 % (11.5-14.5) H Platelet Count 150 x10^3/uL (140-400) Neutrophils (%) (Auto) 77 % (31-73) H Lymphocytes (%) (Auto) 12 % (24-48) L Monocytes (%) (Auto) 5 % (0-9) Eosinophils (%) (Auto) 5 % (0-3) H Basophils (%) (Auto) 2 % (0-3) Neutrophils # (Auto) 7.7 x10^3/uL (1.8-7.7) Lymphocytes # (Auto) 1.2 x10^3/uL (1.0-4.8) Monocytes # (Auto) 0.5 x10^3/uL (0.0-1.1) Eosinophils # (Auto) 0.4 x10^3/uL (0.0-0.7) Basophils # (Auto) 0.2 x10^3/uL (0.0-0.2) Sodium Level 126 mmol/L (136-145) L Potassium Level 5.1 mmol/L (3.5-5.1) Chloride Level 89 mmol/L (98-107) L Carbon Dioxide Level 33 mmol/L (21-32) H Anion Gap 4 (6-14) L Blood Urea Nitrogen 44 mg/dL (8-26) H Creatinine 7.3 mg/dL (0.7-1.3) H Estimated GFR (Cockcroft-Gault) 7.6 BUN/Creatinine Ratio 6 (6-20) Glucose Level 108 mg/dL (70-99) H Lactic Acid Level 1.0 mmol/L (0.4-2.0) Calcium Level 9.7 mg/dL (8.5-10.1) Magnesium Level 2.4 mg/dL (1.8-2.4) Total Bilirubin 0.8 mg/dL (0.2-1.0) Aspartate Amino Transferase (AST) 38 U/L (15-37) H Alanine Aminotransferase (ALT) 36 U/L (16-63) Alkaline Phosphatase 103 U/L (46-116) Creatine Kinase 50 U/L (39-308) Creatine Kinase MB (Mass) 0.6 ng/mL (0.0-3.6) Creatine Kinase MB Relative Index 1.2 % (0-4) Troponin I Quantitative < 0.017 ng/mL (0.000-0.055) Total Protein 8.2 g/dL (6.4-8.2) Albumin 2.9 g/dL (3.4-5.0) L Albumin/Globulin Ratio 0.5 (1.0-1.7) L Lipase 48 U/L (73-393) L Laboratory Tests 04/28/20 03:05 Laboratory Tests 04/28/20 03:05 Vital Signs: Vital Signs Date Time Temp Pulse Resp B/P (MAP) Pulse Ox O2 Delivery O2 Flow Rate FiO2 04/28/20 03:18 95 04/28/20 02:50 98.5 103 20 146/88 (107) Room Air 98.5 EKG: EKG: @0546 NSR at 94bpm, NO ST elevation, QRS 134ms, QT/QTc 376/470ms, RBBB, t wave inversion V2 Radiology/Procedures: Radiology/Procedures: PROCEDURE: CT ABDOMEN PELVIS WO CONTRAST PQRS Compliance Statement: One or more of the following individualized dose reduction techniques were utilized for this examination: 1. Automated exposure control 2. Adjustment of the mA and/or kV according to patient size 3. Use of iterative reconstruction technique CT abdomen/pelvis without contrast 04/28/2020 3:03 AM INDICATION: Right-sided abdominal pain COMPARISON: CT abdomen/pelvis 08/25/2018 TECHNIQUE: Multiple axial CT images of the abdomen and pelvis were obtained without intravenous contrast. Coronal and sagittal reformats are provided. FINDINGS: Small bilateral pleural effusions with adjacent compressive atelectasis. Mild pulmonary vascular congestion. Constellation of findings may be seen with congestive heart failure. Heart size is within normal limits. Evaluation of solid abdominal viscera is limited by lack of intravenous contrast. Liver, bilateral adrenal glands and gallbladder are normal in appearance. Extensive motion artifact limits evaluation of the upper abdomen. Calcifications within the spleen likely represent sequela prior granulomatous exposure. Moderate fatty atrophy of the pancreas. Abdominal aorta is normal in course and caliber. Left periaortic lymphadenopathy is identified measuring up to 1.4 cm short axis (series 2, image 38). Findings appear increased since prior examination. Bilateral external iliac lymphadenopathy is noted measuring up to 2.3 cm along the right external iliac distribution, increased from 1.8 cm . Right inguinal lymph node is enlarged, stable measuring 1.9 cm. Additional right inguinal lymph node has increased in size measuring 1.7 cm (series 2, image 115), previously measuring 1.4 cm. There is new hazy attenuation within the root of small bowel mesentery which may represent mesenteric adenitis. Findings are not centered along a specific vessel. Thrombophlebitis could have similar appearance. IVC filter is present. There is atrophy of the kidneys bilaterally. More confluent edema identified in the left lower quadrant of the abdomen and pelvis. Urinary bladder is decompressed. No suspicious pelvic mass. There are 2 left ventral abdominal wall hernias containing nondilated small bowel along the inferior hernia measuring 7.2 cm and containing small large bowel in the superior measuring 6.2 cm. No bowel obstruction or inflammation. Appendix is not definitively visualized. No pericecal inflammatory changes are identified. Stomach is normal in appearance. No suspicious osseous normality. IMPRESSION: 1. Small bilateral pleural effusions with adjacent compressive atelectasis. Mild pulmonary vascular congestion may be seen with congestive heart failure. 2. Retroperitoneal and pelvic lymphadenopathy, as detailed above. Findings have progressed. Findings may be reactive, however, lymphoproliferative disorder such as lymphoma cannot be excluded. 3. There is new hazy attenuation within the root of small bowel mesentery which may represent mesenteric adenitis. Findings are not centered along a specific vessel. Thrombophlebitis could have similar appearance. Contrast-enhanced examination could be of benefit. 4. There are 2 left ventral abdominal wall hernias containing nondilated small bowel and large bowel. No bowel obstruction or inflammation. 5. There is diffuse subcutaneous edema along the flanks which may reflect anasarca. Small volume abdominal ascites. 6. Limited evaluation of the upper abdomen secondary to significant motion artifact. 7. Appendix is not definitively visualized. Electronically signed by: Marie Duncan MD (04/28/2020 4:20 AM) [facility] Course & Med Decision Making: Course & Med Decision Making Pertinent Labs and Imaging studies reviewed. (See chart for details) Patient presents with report of right-sided abdominal pain. Patient reports concern for possible appendicitis. Pain/nausea addressed. IV fluid hydration given. Labs obtained and posted to chart. Hyponatremia noted. EKG stable. CT abdomen/pelvis with concern for possible mesenteric adenitis and signs of anasarca. Lactic acid within normal limits. Patient requiring admission for further evaluation and treatment. Discussed with Dr. Stern (hospitalist) who is in agreement with admission. Consult placed for nephrology as patient might require hemodialysis today rather than waiting till Thursday. Discussed findings and plan with patient, who acknowledges unders tanding and agreement. Jonna Disclaimer: Jonna Disclaimer: This electronic medical record was generated, in whole or in part, using a voice recognition dictation system. Departure Departure Impression: Primary Impression: Intractable abdominal pain Additional Impressions: ESRD on hemodialysis Anasarca Hyponatremia Subtherapeutic international normalized ratio (INR) Disposition: ADMITTED INPT THIS HOSP Admitting Physician: HIMS (Stern) Condition: STABLE Referrals: HIGINIO WISE MD (PCP) KILEY PALMER DO Apr 28, 2020 05:10
[2020-04-28] MEDS ORDERED: DEXTROSE 50% 25 GM / 50ML DISP.SYRIN. IV PRN (05:15)
[2020-04-28] MEDS ORDERED: ONDANSETRON PF 4 MG/2 ML VIAL. IV PRN (05:15)
[2020-04-28] MEDS ORDERED: hydrALAZINE 20 MG/ML VIAL. ONE (05:22)
[2020-04-28] MEDS: hydrALAZINE 20 MG/ML VIAL. IVP PRN ×2 (05:24→18:00)
[2020-04-28] MEDS ORDERED: hydrALAZINE 20 MG/ML VIAL. IVP ONE (07:00)
--- NOTE | 2020-04-28 07:43 | PDOC1 ---
History and Physical Date of Service: DOS: DATE: 04/28/20 TIME: 07:40 Chief Complaint: Chief Complain: Abdominal pain History of Present Illness: HPI: 64-year-old male presents via EMS from group home with report of right-sided abdominal discomfort that occurred approximately 4 hours prior to arrival. Patient reports "I think I have appendicitis ". Patient was given hydrocodone by nursing staff at [facility] at approximately 0125 but the pain continued to be present and therefore decision to present patient to the ER for further evaluation. Patient denies known exposure to COVID-19. Reports was tested for COVID-19 on Thursday which was negative. Denies trauma. Denies fever or chills. Patient does report prior history of colectomy. Patient also reports past medical history of end-stage renal disease on hemodialysis Thursday/Thursday/Thursday. Patient reports he was post to have dialysis on secondary to the holiday but was unable to get it scheduled. Patient therefore is currently scheduled for a Thursday dialysis session. 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" Past Surgical History: colon resection, dialysis shunt left arm Allergies: Allergies: Coded Allergies: No Known Drug Allergies (Unverified , 09/27/19) Family History: Family History: Reviewed with no relevant findings Social History: Social History: Smoking Status: Former Smoker Alcohol Use: Occasionally Drug Use: None Current Medications: Current Medications Current Medications Famotidine (Pepcid Vial) 20 mg 1X ONCE IVP Last administered on 04/28/20at 03:18; Start 04/28/20 at 03:30; Stop 04/28/20 at 03:31; Status DC Fentanyl Citrate (Fentanyl 2ml Vial) 50 mcg 1X ONCE IV Last administered on 04/28/20at 03:18; Start 04/28/20 at 03:30; Stop 04/28/20 at 03:31; Status DC Sodium Chloride 500 ml @ 500 mls/hr 1X ONCE IV Last administered on 04/28/20at 03:19; Start 04/28/20 at 03:30; Stop 04/28/20 at 04:29; Status DC Fentanyl Citrate (Fentanyl 2ml Vial) 50 mcg 1X ONCE IV Last administered on 04/28/20at 05:16; Start 04/28/20 at 04:00; Stop 04/28/20 at 04:01; Status DC Ondansetron HCl (Zofran) 4 mg PRN Q8HRS PRN IV NAUSEA/VOMITING 1ST CHOICE; Start 04/28/20 at 05:15; Stop 04/29/20 at 05:14 Fentanyl Citrate (Fentanyl 2ml Vial) 50 mcg PRN Q2HRS PRN IV SEVERE PAIN 7-10; Start 04/28/20 at 05:15 Hydralazine HCl (Apresoline Inj) 10 mg PRN Q4HRS PRN IVP ELEVATED BP, SEE COMMENTS Last administered on 04/28/20at 05:24; Start 04/28/20 at 05:15; Stop 04/29/20 at 05:14 Insulin Human Lispro (HumaLOG) 0-5 UNITS TIDWMEALS SQ ; Start 04/28/20 at 08:00 Dextrose (Dextrose 50%-Water Syringe) 12.5 gm PRN Q15MIN PRN IV SEE COMMENTS; Start 04/28/20 at 05:15 Hydralazine HCl (Apresoline Inj) 20 mg STK-MED ONCE .ROUTE ; Start 04/28/20 at 05:22; Stop 04/28/20 at 05:22; Status DC Hydralazine HCl (Apresoline Inj) 20 mg 1X ONCE IVP ; Start 04/28/20 at 07:00; Stop 04/28/20 at 07:01; Status DC Active Scripts Active Admelog (Insulin Lispro) 100 Unit/1 Ml Vial 0 Units SQ TIDWMEALS 30 Days Hydrocodone-Apap 5-325 (Hydrocodone Bit/Acetaminophen) 1 Tab Tablet 1 Tab PO PRN Q4HRS PRN 14 Days Warfarin Sodium 5 Mg Tablet 4 Mg PO DAILY 30 Days Baclofen 10 Mg Tablet 5 Mg PO TID Zofran Odt (Ondansetron) 4 Mg Tab.rapdis 4 Mg PO BID PRN Reported Metamucil (Psyllium Husk) 0.52 Gm Capsule 1 Cap PO HS PRN 30 Days Temazepam 15 Mg Capsule 1 Cap PO QHS Losartan Potassium 50 Mg Tablet 25 Mg PO DAILY Verapamil Hcl 80 Mg Tablet 2 Tab PO BID Lantus Solostar (Insulin Glargine,Hum.rec.anlog) 100 Unit/1 Ml Insuln.pen 35 Unit SQ BIDAC PRN Acetaminophen 500 Mg Tablet 1 Tab PO BID PRN Renal Vitamin Tablet (Folic Acid/Vit Bcomp,C) 0.8 Mg Tablet 0.8 Mg PO DAILY Humalog (Insulin Lispro) 100 Unit/1 Ml Insuln.pen 50 Unit SQ BIDACBL ROS: Review of Systems Review of System REVIEW OF SYSTEMS: GENERAL: Denies weakness SKIN: No bruising, hair changes or rashes. EYES: No blurred, double or loss of vision. NOSE AND THROAT: No history of nosebleeds, hoarseness or sore throat. HEART: No history of palpitations, chest pain or shortness of breath on exertion. LUNGS: Denies cough, hemoptysis, wheezing or shortness of breath. GASTROINTESTINAL: Denies changes in appetite, nausea, vomiting, diarrhea or constipation. GENITOURINARY: No history of frequency, urgency, hesitancy or nocturia. NEUROLOGIC: Denies history of numbness, tingling, or tremor. PSYCHIATRIC: No history of panic, anxiety or depression. ENDOCRINE: No history of heat or cold intolerance, polyuria or polydipsia. EXTREMITIES: Denies joint pain, pain on walking or stiffness. Physical Exam: Vital Signs: Vital Signs Date Time Temp Pulse Resp B/P (MAP) Pulse Ox O2 Delivery O2 Flow Rate FiO2 04/28/20 05:24 90 199/96 04/28/20 05:16 93 Room Air 04/28/20 02:50 98.5 20 98.5 Physcial Exam: GEN: No apparent distress. Alert and oriented HEENT: Normal cephalic, atraumatic, external auditory canals are patent EYES: Extraocular muscles are intact, pupil are equally round and reactive to light and accommodation MUSCULOSKELETAL: Well developed , well nourished, good range of motion ENDOCRINE: No thyromegaly was palpated LYMPHATICS: No cervical chain or axillary nodes were noted HEMATOPOIETIC: No bruising NECK: Supple, no JVD, no thyromegaly was noted LUNGS: Clear to auscultation in all lung carrero without rhonchi or wheezing HEART: RRR, S!, S2 present. Peripheral pulses intact, no obvious murmurs noted ABDOMEN: Soft, nontender. Positive bowel sounds, no organomegaly, normal bowel sounds EXTREMITIES: Without clubbing, cyanosis, or edema. Pedal pulses intact. Negative Homans sign NEUROLOGIC: Normal speech and tone. A&O x 3, moves all extremities, no obvious focal deficits PSYCHIATRIC: Normal affect, normal mood. Stable SKIN: No ulcerations or rashes, good skin turgor, no jaundice VASCULAR: Good capillary refill, neurovascular bundle appears to be intact Labs: Labs: Laboratory Tests Test 04/28/20 02:55 04/28/20 03:05 Prothrombin Time 20.2 SEC (11.7-14.0) Prothromb Time International Ratio 1.8 (0.8-1.1) White Blood Count 10.0 x10^3/uL (4.0-11.0) Red Blood Count 3.67 x10^6/uL (4.30-5.70) Hemoglobin 11.3 g/dL (13.0-17.5) Hematocrit 33.4 % (39.0-53.0) Mean Corpuscular Volume 91 fL (79-100) Mean Corpuscular Hemoglobin 31 pg (25-35) Mean Corpuscular Hemoglobin Concent 34 g/dL (31-37) Red Cell Distribution Width 18.2 % (11.5-14.5) Platelet Count 150 x10^3/uL (140-400) Neutrophils (%) (Auto) 77 % (31-73) Lymphocytes (%) (Auto) 12 % (24-48) Monocytes (%) (Auto) 5 % (0-9) Eosinophils (%) (Auto) 5 % (0-3) Basophils (%) (Auto) 2 % (0-3) Neutrophils # (Auto) 7.7 x10^3/uL (1.8-7.7) Lymphocytes # (Auto) 1.2 x10^3/uL (1.0-4.8) Monocytes # (Auto) 0.5 x10^3/uL (0.0-1.1) Eosinophils # (Auto) 0.4 x10^3/uL (0.0-0.7) Basophils # (Auto) 0.2 x10^3/uL (0.0-0.2) Sodium Level 126 mmol/L (136-145) Potassium Level 5.1 mmol/L (3.5-5.1) Chloride Level 89 mmol/L (98-107) Carbon Dioxide Level 33 mmol/L (21-32) Anion Gap 4 (6-14) Blood Urea Nitrogen 44 mg/dL (8-26) Creatinine 7.3 mg/dL (0.7-1.3) Estimated GFR (Cockcroft-Gault) 7.6 BUN/Creatinine Ratio 6 (6-20) Glucose Level 108 mg/dL (70-99) Lactic Acid Level 1.0 mmol/L (0.4-2.0) Calcium Level 9.7 mg/dL (8.5-10.1) Magnesium Level 2.4 mg/dL (1.8-2.4) Total Bilirubin 0.8 mg/dL (0.2-1.0) Aspartate Amino Transf (AST/SGOT) 38 U/L (15-37) Alanine Aminotransferase (ALT/SGPT) 36 U/L (16-63) Alkaline Phosphatase 103 U/L (46-116) Creatine Kinase 50 U/L (39-308) Creatine Kinase MB (Mass) 0.6 ng/mL (0.0-3.6) Creatine Kinase MB Relative Index 1.2 % (0-4) Troponin I Quantitative < 0.017 ng/mL (0.000-0.055) Total Protein 8.2 g/dL (6.4-8.2) Albumin 2.9 g/dL (3.4-5.0) Albumin/Globulin Ratio 0.5 (1.0-1.7) Lipase 48 U/L (73-393) Laboratory Tests Test 04/28/20 02:55 04/28/20 03:05 Prothrombin Time 20.2 SEC (11.7-14.0) Prothromb Time International Ratio 1.8 (0.8-1.1) White Blood Count 10.0 x10^3/uL (4.0-11.0) Red Blood Count 3.67 x10^6/uL (4.30-5.70) Hemoglobin 11.3 g/dL (13.0-17.5) Hematocrit 33.4 % (39.0-53.0) Mean Corpuscular Volume 91 fL (79-100) Mean Corpuscular Hemoglobin 31 pg (25-35) Mean Corpuscular Hemoglobin Concent 34 g/dL (31-37) Red Cell Distribution Width 18.2 % (11.5-14.5) Platelet Count 150 x10^3/uL (140-400) Neutrophils (%) (Auto) 77 % (31-73) Lymphocytes (%) (Auto) 12 % (24-48) Monocytes (%) (Auto) 5 % (0-9) Eosinophils (%) (Auto) 5 % (0-3) Basophils (%) (Auto) 2 % (0-3) Neutrophils # (Auto) 7.7 x10^3/uL (1.8-7.7) Lymphocytes # (Auto) 1.2 x10^3/uL (1.0-4.8) Monocytes # (Auto) 0.5 x10^3/uL (0.0-1.1) Eosinophils # (Auto) 0.4 x10^3/uL (0.0-0.7) Basophils # (Auto) 0.2 x10^3/uL (0.0-0.2) Sodium Level 126 mmol/L (136-145) Potassium Level 5.1 mmol/L (3.5-5.1) Chloride Level 89 mmol/L (98-107) Carbon Dioxide Level 33 mmol/L (21-32) Anion Gap 4 (6-14) Blood Urea Nitrogen 44 mg/dL (8-26) Creatinine 7.3 mg/dL (0.7-1.3) Estimated GFR (Cockcroft-Gault) 7.6 BUN/Creatinine Ratio 6 (6-20) Glucose Level 108 mg/dL (70-99) Lactic Acid Level 1.0 mmol/L (0.4-2.0) Calcium Level 9.7 mg/dL (8.5-10.1) Magnesium Level 2.4 mg/dL (1.8-2.4) Total Bilirubin 0.8 mg/dL (0.2-1.0) Aspartate Amino Transf (AST/SGOT) 38 U/L (15-37) Alanine Aminotransferase (ALT/SGPT) 36 U/L (16-63) Alkaline Phosphatase 103 U/L (46-116) Creatine Kinase 50 U/L (39-308) Creatine Kinase MB (Mass) 0.6 ng/mL (0.0-3.6) Creatine Kinase MB Relative Index 1.2 % (0-4) Troponin I Quantitative < 0.017 ng/mL (0.000-0.055) Total Protein 8.2 g/dL (6.4-8.2) Albumin 2.9 g/dL (3.4-5.0) Albumin/Globulin Ratio 0.5 (1.0-1.7) Lipase 48 U/L (73-393) Images: Images CT ABD/PELVIS IMPRESSION: 1. Small bilateral pleural effusions with adjacent compressive atelectasis. Mild pulmonary vascular congestion may be seen with congestive heart failure. 2. Retroperitoneal and pelvic lymphadenopathy, as detailed above. Findings have progressed. Findings may be reactive, however, lymphoproliferative disorder such as lymphoma cannot be excluded. 3. There is new hazy attenuation within the root of small bowel mesentery which may represent mesenteric adenitis. Findings are not centered along a specific vessel. Thrombophlebitis could have similar appearance. Contrast-enhanced examination could be of benefit. 4. There are 2 left ventral abdominal wall hernias containing nondilated small bowel and large bowel. No bowel obstruction or inflammation. 5. There is diffuse subcutaneous edema along the flanks which may reflect anasarca. Small volume abdominal ascites. 6. Limited evaluation of the upper abdomen secondary to significant motion artifact. 7. Appendix is not definitively visualized. Assessment/Plan Assessment/Plan Acute abdominal pain due to mesenteric adenitis and retroperitoneal lymphadenopathy Large ventral hernias Acute volume overload Acute electrolyte derangementhyponatremia and hypochloremia Severe protein malnutrition ESRD on HD Coagulopathy Admit to medicine for further management GI consult for mesenteric adenitis Surgery consult for ventral hernias Nephrology consult for missed hemodialysis Warfarin for DVT prophylaxis Protonix GI prophylaxis ADA diet Full code Discussed with RN and SW Disposition pending consultants evaluations Surrogate decision maker is the Justifications for Admission Other Justification Intractable pain, left lower extremity wound EDER NAJERA MD Apr 28, 2020 07:43
[2020-04-28] MEDS: INSULIN LISPRO 300 UNITS/3 ML VIAL. SQ SCH ×5 (08:06→18:00)
[2020-04-28] MEDS ORDERED: ESCITALOPRAM OX10 MG PO ×2 (09:06→14:16)
[2020-04-28] MEDS ORDERED: MELA3TAB4 PO (09:06)
[2020-04-28] MEDS ORDERED: NYST15PO9 TP (09:06)
[2020-04-28] MEDS ORDERED: INSU100V31 SQ (09:06)
[2020-04-28] MEDS: fentaNYL PF VIAL 100 MCG/2 ML VIAL IV PRN ×5 (09:35→22:15)
[2020-04-28] MEDS ORDERED: ALBUMIN HUMAN 25% 200 ML IV PRN (11:30)
[2020-04-28] MEDS ORDERED: IV NORMAL SALINE 1000ML BAG 1,000 ML IV PRN ×2 (11:30)
[2020-04-28] MEDS ORDERED: LIDOCAINE/PRILOCAINE TOPICAL CREAM 5GM TUBE. TP PRN (11:30)
[2020-04-28] MEDS ORDERED: DIALYSIS PATIENT. MC PRN ×2 (11:30)
[2020-04-28] MEDS ORDERED: ACETAMINOPHEN 325 MG TABLET. PO PRN (12:30)
[2020-04-28] MEDS ORDERED: SENNOSIDES 8.6 MG TABLET PO PRN (12:30)
[2020-04-28] MEDS ORDERED: DOCUSATE SODIUM 100 MG CAPSULE. PO PRN (12:30)
[2020-04-28] MEDS ORDERED: ONDANSETRON PF 4 MG/2 ML VIAL. IVP PRN (12:30)
--- NOTE | 2020-04-28 12:40 | PDOC2 ---
ILYA ULLOA CRATING AND MOVING ESTIMATOR 04/28/20 1240: CONSULT Date of Consult Date of Consult DATE: 04/28/20 TIME: 12:30 Reason for Consult Reason for Consult: ventral hernias Referring Physician Referring Physician: DR Stern Identification/Chief Complaint Chief Complaint abdominal pain Source Source: Caregiver, Chart review History of Present Illness Reason for Visit: Patient is lethargic, not really answering questions. Seen as dialysis is starting. From spouse patient at [facility] and started complaining overnight of RLQ pain Surgical hx of Exploratory laparotomy with extended right hemicolectomy and primary anastomosis in [address] Vitale for colon cancer. Current imaging did not see findings of appendicitis, ventral hernias without obstructive findings Past Medical History Cardiovascular: HTN, Hyperlipidemia Pulmonary: COPD, Other GI: Constipation, Other Heme/Onc: Anemia NOS Renal/: Chronic renal failure Endocrine: Diabetes, Hyperparathyroidism Past Surgical History Past Surgical History: Colectomy, Colon Resection, Other Family History Family History: Cancer, Diabetes, Hypertension Social History ALCOHOL: none Drugs: None Lives: with Family Current Problem List Problem List Problems Medical Problems: (1) Anasarca Status: Acute (2) ESRD on hemodialysis Status: Acute (3) Hyponatremia Status: Acute (4) Intractable abdominal pain Status: Acute (5) Subtherapeutic international normalized ratio (INR) Status: Acute Current Medications Current Medications Current Medications Famotidine (Pepcid Vial) 20 mg 1X ONCE IVP Last administered on 04/28/20at 03:18; Start 04/28/20 at 03:30; Stop 04/28/20 at 03:31; Status DC Fentanyl Citrate (Fentanyl 2ml Vial) 50 mcg 1X ONCE IV Last administered on 04/28/20at 03:18; Start 04/28/20 at 03:30; Stop 04/28/20 at 03:31; Status DC Sodium Chloride 500 ml @ 500 mls/hr 1X ONCE IV Last administered on 04/28/20at 03:19; Start 04/28/20 at 03:30; Stop 04/28/20 at 04:29; Status DC Fentanyl Citrate (Fentanyl 2ml Vial) 50 mcg 1X ONCE IV Last administered on 04/28/20at 05:16; Start 04/28/20 at 04:00; Stop 04/28/20 at 04:01; Status DC Ondansetron HCl (Zofran) 4 mg PRN Q8HRS PRN IV NAUSEA/VOMITING 1ST CHOICE; Start 04/28/20 at 05:15; Stop 04/29/20 at 05:14 Fentanyl Citrate (Fentanyl 2ml Vial) 50 mcg PRN Q2HRS PRN IV SEVERE PAIN 7-10 Last administered on 04/28/20at 11:50; Start 04/28/20 at 05:15 Hydralazine HCl (Apresoline Inj) 10 mg PRN Q4HRS PRN IVP ELEVATED BP, SEE COMMENTS Last administered on 04/28/20at 05:24; Start 04/28/20 at 05:15; Stop 04/29/20 at 05:14 Insulin Human Lispro (HumaLOG) 0-5 UNITS TIDWMEALS SQ ; Start 04/28/20 at 08:00 Dextrose (Dextrose 50%-Water Syringe) 12.5 gm PRN Q15MIN PRN IV SEE COMMENTS; Start 04/28/20 at 05:15 Hydralazine HCl (Apresoline Inj) 20 mg STK-MED ONCE .ROUTE ; Start 04/28/20 at 05:22; Stop 04/28/20 at 05:22; Status DC Hydralazine HCl (Apresoline Inj) 20 mg 1X ONCE IVP Last administered on 04/28/20at 08:10; Start 04/28/20 at 07:00; Stop 04/28/20 at 07:01; Status DC Lidocaine/ Prilocaine (Emla) 1 lanette 3X/WEEK PRN TP HEMODIALYSIS; Start 04/28/20 at 11:30 Sodium Chloride 1,000 ml @ 1,000 mls/hr Q1H PRN IV hypotension; Start 04/28/20 at 11:30; Stop 04/28/20 at 17:29 Albumin Human 200 ml @ 200 mls/hr 1X PRN PRN IV Hypotension; Start 04/28/20 at 11:30; Stop 04/28/20 at 17:29 Sodium Chloride 1,000 ml @ 400 mls/hr Q2H30M PRN IV PATENCY; Start 04/28/20 at 11:30; Stop 04/28/20 at 23:29 Info (PHARMACY MONITORING -- do not chart) 1 each PRN DAILY PRN MC SEE COMMENTS; Start 04/28/20 at 11:30; Stop 04/28/20 at 11:48; Status DC Info (PHARMACY MONITORING -- do not chart) 1 each PRN DAILY PRN MC SEE COMMENTS; Start 04/28/20 at 11:30 Sennosides (Senna) 17.2 mg PRN BID PRN PO CONSTIPATION; Start 04/28/20 at 12:30; Status UNV Docusate Sodium (Colace) 100 mg PRN DAILY PRN PO HARD STOOLS; Start 04/28/20 at 12:30; Status UNV Ondansetron HCl (Zofran) 4 mg PRN Q6HRS PRN IVP NAUSEA/VOMITING; Start 04/28/20 at 12:30; Status UNV Insulin Human Lispro (HumaLOG) 0-5 UNITS TIDWMEALS SQ ; Start 04/28/20 at 17:00; Status UNV Dextrose (Dextrose 50%-Water Syringe) 12.5 gm PRN Q15MIN PRN IV SEE COMMENTS; Start 04/28/20 at 12:30; Status UNV Acetaminophen (Tylenol) 650 mg PRN Q4HRS PRN PO TEMP OVER 100.4F OR MILD PAIN; Start 04/28/20 at 12:30; Status UNV Morphine Sulfate (Morphine Sulfate) 2 mg PRN Q2HR PRN IV SEVERE PAIN 7-10; Start 04/28/20 at 04:00; Stop 04/29/20 at 03:59; Status UNV Active Scripts Active Admelog (Insulin Lispro) 100 Unit/1 Ml Vial 0 Units SQ TIDWMEALS 30 Days Hydrocodone-Apap 5-325 (Hydrocodone Bit/Acetaminophen) 1 Tab Tablet 1 Tab PO PRN Q4HRS PRN 14 Days Warfarin Sodium 5 Mg Tablet 4 Mg PO DAILY 30 Days Baclofen 10 Mg Tablet 5 Mg PO TID Zofran Odt (Ondansetron) 4 Mg Tab.rapdis 4 Mg PO BID PRN Reported Nystatin 15 Gm Powder 1 Lanette TP BID 7 Days apply to affected area(s) Novolog (Insulin Aspart) 100 Unit/1 Ml Vial 12 Unit SQ TIDWMEALS Melatonin 3 Mg Tablet 1 Tab PO QHS Escitalopram Oxalate 10 Mg Tablet 1 Tab PO DAILY Metamucil (Psyllium Husk) 0.52 Gm Capsule 1 Cap PO HS PRN 30 Days Temazepam 15 Mg Capsule 1 Cap PO QHS Losartan Potassium 50 Mg Tablet 25 Mg PO DAILY Verapamil Hcl 80 Mg Tablet 2 Tab PO BID Lantus Solostar (Insulin Glargine,Hum.rec.anlog) 100 Unit/1 Ml Insuln.pen 35 Unit SQ BIDAC PRN Acetaminophen 500 Mg Tablet 1 Tab PO BID PRN Renal Vitamin Tablet (Folic Acid/Vit Bcomp,C) 0.8 Mg Tablet 0.8 Mg PO DAILY Allergies Allergies: Coded Allergies: No Known Drug Allergies (Unverified , 09/27/19) ROS Review of System unable to obtain from pt Physical Exam General: Other (altered mental status) HEENT: Atraumatic, Mucous membr. moist/pink Lungs: Other (diminished) Heart: Regular rate, Normal S1, Normal S2 Abdomen: Soft, Other (nontender on exam currently,. hernias not palpable) Extremities: Other (chronic LE skin changes ) Vitals VITALS Vital Signs Date Time Temp Pulse Resp B/P (MAP) Pulse Ox O2 Delivery O2 Flow Rate FiO2 04/28/20 08:10 96 188/86 04/28/20 06:45 20 92 Room Air 04/28/20 02:50 98.5 98.5 Labs Labs Laboratory Tests Test 04/28/20 02:55 04/28/20 03:05 04/28/20 07:43 04/28/20 11:42 Prothrombin Time 20.2 SEC (11.7-14.0) Prothromb Time International Ratio 1.8 (0.8-1.1) White Blood Count 10.0 x10^3/uL (4.0-11.0) Red Blood Count 3.67 x10^6/uL (4.30-5.70) Hemoglobin 11.3 g/dL (13.0-17.5) Hematocrit 33.4 % (39.0-53.0) Mean Corpuscular Volume 91 fL (79-100) Mean Corpuscular Hemoglobin 31 pg (25-35) Mean Corpuscular Hemoglobin Concent 34 g/dL (31-37) Red Cell Distribution Width 18.2 % (11.5-14.5) Platelet Count 150 x10^3/uL (140-400) Neutrophils (%) (Auto) 77 % (31-73) Lymphocytes (%) (Auto) 12 % (24-48) Monocytes (%) (Auto) 5 % (0-9) Eosinophils (%) (Auto) 5 % (0-3) Basophils (%) (Auto) 2 % (0-3) Neutrophils # (Auto) 7.7 x10^3/uL (1.8-7.7) Lymphocytes # (Auto) 1.2 x10^3/uL (1.0-4.8) Monocytes # (Auto) 0.5 x10^3/uL (0.0-1.1) Eosinophils # (Auto) 0.4 x10^3/uL (0.0-0.7) Basophils # (Auto) 0.2 x10^3/uL (0.0-0.2) Sodium Level 126 mmol/L (136-145) Potassium Level 5.1 mmol/L (3.5-5.1) Chloride Level 89 mmol/L (98-107) Carbon Dioxide Level 33 mmol/L (21-32) Anion Gap 4 (6-14) Blood Urea Nitrogen 44 mg/dL (8-26) Creatinine 7.3 mg/dL (0.7-1.3) Estimated GFR (Cockcroft-Gault) 7.6 BUN/Creatinine Ratio 6 (6-20) Glucose Level 108 mg/dL (70-99) Lactic Acid Level 1.0 mmol/L (0.4-2.0) Calcium Level 9.7 mg/dL (8.5-10.1) Magnesium Level 2.4 mg/dL (1.8-2.4) Total Bilirubin 0.8 mg/dL (0.2-1.0) Aspartate Amino Transf (AST/SGOT) 38 U/L (15-37) Alanine Aminotransferase (ALT/SGPT) 36 U/L (16-63) Alkaline Phosphatase 103 U/L (46-116) Creatine Kinase 50 U/L (39-308) Creatine Kinase MB (Mass) 0.6 ng/mL (0.0-3.6) Creatine Kinase MB Relative Index 1.2 % (0-4) Troponin I Quantitative < 0.017 ng/mL (0.000-0.055) Total Protein 8.2 g/dL (6.4-8.2) Albumin 2.9 g/dL (3.4-5.0) Albumin/Globulin Ratio 0.5 (1.0-1.7) Lipase 48 U/L (73-393) Glucose (Fingerstick) 66 mg/dL (70-99) 82 mg/dL (70-99) Laboratory Tests Test 04/28/20 02:55 04/28/20 03:05 04/28/20 07:43 04/28/20 11:42 Prothrombin Time 20.2 SEC (11.7-14.0) Prothromb Time International Ratio 1.8 (0.8-1.1) White Blood Count 10.0 x10^3/uL (4.0-11.0) Red Blood Count 3.67 x10^6/uL (4.30-5.70) Hemoglobin 11.3 g/dL (13.0-17.5) Hematocrit 33.4 % (39.0-53.0) Mean Corpuscular Volume 91 fL (79-100) Mean Corpuscular Hemoglobin 31 pg (25-35) Mean Corpuscular Hemoglobin Concent 34 g/dL (31-37) Red Cell Distribution Width 18.2 % (11.5-14.5) Platelet Count 150 x10^3/uL (140-400) Neutrophils (%) (Auto) 77 % (31-73) Lymphocytes (%) (Auto) 12 % (24-48) Monocytes (%) (Auto) 5 % (0-9) Eosinophils (%) (Auto) 5 % (0-3) Basophils (%) (Auto) 2 % (0-3) Neutrophils # (Auto) 7.7 x10^3/uL (1.8-7.7) Lymphocytes # (Auto) 1.2 x10^3/uL (1.0-4.8) Monocytes # (Auto) 0.5 x10^3/uL (0.0-1.1) Eosinophils # (Auto) 0.4 x10^3/uL (0.0-0.7) Basophils # (Auto) 0.2 x10^3/uL (0.0-0.2) Sodium Level 126 mmol/L (136-145) Potassium Level 5.1 mmol/L (3.5-5.1) Chloride Level 89 mmol/L (98-107) Carbon Dioxide Level 33 mmol/L (21-32) Anion Gap 4 (6-14) Blood Urea Nitrogen 44 mg/dL (8-26) Creatinine 7.3 mg/dL (0.7-1.3) Estimated GFR (Cockcroft-Gault) 7.6 BUN/Creatinine Ratio 6 (6-20) Glucose Level 108 mg/dL (70-99) Lactic Acid Level 1.0 mmol/L (0.4-2.0) Calcium Level 9.7 mg/dL (8.5-10.1) Magnesium Level 2.4 mg/dL (1.8-2.4) Total Bilirubin 0.8 mg/dL (0.2-1.0) Aspartate Amino Transf (AST/SGOT) 38 U/L (15-37) Alanine Aminotransferase (ALT/SGPT) 36 U/L (16-63) Alkaline Phosphatase 103 U/L (46-116) Creatine Kinase 50 U/L (39-308) Creatine Kinase MB (Mass) 0.6 ng/mL (0.0-3.6) Creatine Kinase MB Relative Index 1.2 % (0-4) Troponin I Quantitative < 0.017 ng/mL (0.000-0.055) Total Protein 8.2 g/dL (6.4-8.2) Albumin 2.9 g/dL (3.4-5.0) Albumin/Globulin Ratio 0.5 (1.0-1.7) Lipase 48 U/L (73-393) Glucose (Fingerstick) 66 mg/dL (70-99) 82 mg/dL (70-99) Assessment/Plan Assessment/Plan abdominal pain--? cause--mesenteric adenitis, normal WBC, no signs of appendicitis, hernias without obstruction Retroperitoneal and pelvic lymphadenopathy on CT AMS Multiple medical issues, chronic monitor, will have Dr Vitale review AMADA VITALE MD 04/28/20 2256: CONSULT Assessment/Plan Assessment/Plan Patient seen and examined by me currently getting dialysis somewhat lethargic poor historian. Abdomen is soft nondistended somewhat tender in the left lower quadrant no peritoneal signs morbidly obese. Mesenteric adenitis with lympha denopathy. Hernias currently containing bowel that is not obstructed. Does not appear to have surgical problem and his comorbidities put him at a prohibitive risk. We will continue to monitor ARTEMIODUARTEILYAKARMEN Flannery APRN Apr 28, 2020 12:40 AMADA VITALE MD Apr 28, 2020 14:46
--- NOTE | 2020-04-28 13:23 | PDOC2 ---
CONSULT Date of Consult Date of Consult DATE: 04/28/20 TIME: 13:15 Reason for Consult Reason for Consult: ESRD on hemodialysis Referring Physician Referring Physician: isa Identification/Chief Complaint Chief Complaint Abdominal pain Source Source: Chart review, Unable to obtain due to History of Present Illness Reason for Visit: Patient is a poor historian and is somnolent during my interaction. Unable to get much in terms from the patient himself. He however is noted to be a 64-year-old gentleman from a local intermediate who currently dialyzes under the care of [facility] at [facility] on a Thursday basis. It is not known how long he has been on dialysis but our records show that he has been on it since 2016 via left AV fistula. It is noted that he was brought here with complaints of right-sided abdominal pain and discomfort. Reportedly he received hydrocodone at the nursing facility. It is also felt that patient has received fentanyl in the ER. He usually dialyzes on a Thursday basis however due to the holiday that has been a change in schedule. It is unclear if he has missed yesterday's treatment or there is a change in schedule and hence he will be dialyzed today. He does feel tender to palpation in his right upper quadrant area however he is unable to provide much in terms of history. There is reported nausea vomiting Past Medical History Cardiovascular: HTN, Hyperlipidemia Pulmonary: COPD, Other GI: Constipation, Other Heme/Onc: Anemia NOS Renal/: Chronic renal failure Endocrine: Diabetes, Hyperparathyroidism Past Surgical History Past Surgical History: Colectomy, Colon Resection, Other Family History Family History: Cancer, Diabetes, Hypertension Social History ALCOHOL: none Drugs: None Lives: with Family Current Problem List Problem List Problems Medical Problems: (1) Anasarca Status: Acute (2) ESRD on hemodialysis Status: Acute (3) Hyponatremia Status: Acute (4) Intractable abdominal pain Status: Acute (5) Subtherapeutic international normalized ratio (INR) Status: Acute Current Medications Current Medications Current Medications Famotidine (Pepcid Vial) 20 mg 1X ONCE IVP Last administered on 04/28/20at 03:18; Start 04/28/20 at 03:30; Stop 04/28/20 at 03:31; Status DC Fentanyl Citrate (Fentanyl 2ml Vial) 50 mcg 1X ONCE IV Last administered on 04/28/20at 03:18; Start 04/28/20 at 03:30; Stop 04/28/20 at 03:31; Status DC Sodium Chloride 500 ml @ 500 mls/hr 1X ONCE IV Last administered on 04/28/20at 03:19; Start 04/28/20 at 03:30; Stop 04/28/20 at 04:29; Status DC Fentanyl Citrate (Fentanyl 2ml Vial) 50 mcg 1X ONCE IV Last administered on 04/28/20at 05:16; Start 04/28/20 at 04:00; Stop 04/28/20 at 04:01; Status DC Ondansetron HCl (Zofran) 4 mg PRN Q8HRS PRN IV NAUSEA/VOMITING 1ST CHOICE; Start 04/28/20 at 05:15; Stop 04/29/20 at 05:14 Fentanyl Citrate (Fentanyl 2ml Vial) 50 mcg PRN Q2HRS PRN IV SEVERE PAIN 7-10 Last administered on 04/28/20at 11:50; Start 04/28/20 at 05:15; Stop 04/28/20 at 23:00 Hydralazine HCl (Apresoline Inj) 10 mg PRN Q4HRS PRN IVP ELEVATED BP, SEE COMMENTS Last administered on 04/28/20at 05:24; Start 04/28/20 at 05:15; Stop 04/29/20 at 05:14 Insulin Human Lispro (HumaLOG) 0-5 UNITS TIDWMEALS SQ ; Start 04/28/20 at 08:00 Dextrose (Dextrose 50%-Water Syringe) 12.5 gm PRN Q15MIN PRN IV SEE COMMENTS; Start 04/28/20 at 05:15; Stop 04/28/20 at 12:29; Status DC Hydralazine HCl (Apresoline Inj) 20 mg STK-MED ONCE .ROUTE ; Start 04/28/20 at 05:22; Stop 04/28/20 at 05:22; Status DC Hydralazine HCl (Apresoline Inj) 20 mg 1X ONCE IVP Last administered on 04/28/20at 08:10; Start 04/28/20 at 07:00; Stop 04/28/20 at 07:01; Status DC Lidocaine/ Prilocaine (Emla) 1 lanette 3X/WEEK PRN TP HEMODIALYSIS; Start 04/28/20 at 11:30 Sodium Chloride 1,000 ml @ 1,000 mls/hr Q1H PRN IV hypotension; Start 04/28/20 at 11:30; Stop 04/28/20 at 17:29 Albumin Human 200 ml @ 200 mls/hr 1X PRN PRN IV Hypotension; Start 04/28/20 at 11:30; Stop 04/28/20 at 17:29 Sodium Chloride 1,000 ml @ 400 mls/hr Q2H30M PRN IV PATENCY; Start 04/28/20 at 11:30; Stop 04/28/20 at 23:29 Info (PHARMACY MONITORING -- do not chart) 1 each PRN DAILY PRN MC SEE COMMENTS; Start 04/28/20 at 11:30; Stop 04/28/20 at 11:48; Status DC Info (PHARMACY MONITORING -- do not chart) 1 each PRN DAILY PRN MC SEE COMMENTS; Start 04/28/20 at 11:30 Sennosides (Senna) 17.2 mg PRN BID PRN PO CONSTIPATION; Start 04/28/20 at 12:30 Docusate Sodium (Colace) 100 mg PRN DAILY PRN PO HARD STOOLS; Start 04/28/20 at 12:30 Ondansetron HCl (Zofran) 4 mg PRN Q6HRS PRN IVP NAUSEA/VOMITING; Start 04/28/20 at 12:30 Insulin Human Lispro (HumaLOG) 0-5 UNITS TIDWMEALS SQ ; Start 04/28/20 at 17:00 Dextrose (Dextrose 50%-Water Syringe) 12.5 gm PRN Q15MIN PRN IV SEE COMMENTS; Start 04/28/20 at 12:30 Acetaminophen (Tylenol) 650 mg PRN Q4HRS PRN PO TEMP OVER 100.4F OR MILD PAIN; Start 04/28/20 at 12:30 Morphine Sulfate (Morphine Sulfate) 2 mg PRN Q2HR PRN IV SEVERE PAIN 7-10; Sta rt 04/28/20 at 04:00; Stop 04/29/20 at 03:59 Active Scripts Active Admelog (Insulin Lispro) 100 Unit/1 Ml Vial 0 Units SQ TIDWMEALS 30 Days Hydrocodone-Apap 5-325 (Hydrocodone Bit/Acetaminophen) 1 Tab Tablet 1 Tab PO PRN Q4HRS PRN 14 Days Warfarin Sodium 5 Mg Tablet 4 Mg PO DAILY 30 Days Baclofen 10 Mg Tablet 5 Mg PO TID Zofran Odt (Ondansetron) 4 Mg Tab.rapdis 4 Mg PO BID PRN Reported Nystatin 15 Gm Powder 1 Lanette TP BID 7 Days apply to affected area(s) Novolog (Insulin Aspart) 100 Unit/1 Ml Vial 12 Unit SQ TIDWMEALS Melatonin 3 Mg Tablet 1 Tab PO QHS Escitalopram Oxalate 10 Mg Tablet 1 Tab PO DAILY Metamucil (Psyllium Husk) 0.52 Gm Capsule 1 Cap PO HS PRN 30 Days Temazepam 15 Mg Capsule 1 Cap PO QHS Losartan Potassium 50 Mg Tablet 25 Mg PO DAILY Verapamil Hcl 80 Mg Tablet 2 Tab PO BID Lantus Solostar (Insulin Glargine,Hum.rec.anlog) 100 Unit/1 Ml Insuln.pen 35 Unit SQ BIDAC PRN Acetaminophen 500 Mg Tablet 1 Tab PO BID PRN Renal Vitamin Tablet (Folic Acid/Vit Bcomp,C) 0.8 Mg Tablet 0.8 Mg PO DAILY Allergies Allergies: Coded Allergies: No Known Drug Allergies (Unverified , 09/27/19) ROS Review of System Unable to obtain from the patient due to somnolence. Most of it is reviewed in HPI otherwise negative Physical Exam Physical Exam General Appearance: Not fully awake or Alert Oriented x 1, at best i n no Distress, morbidly obese gentleman Eyes: VIsion Unchanged Conjunctiva Normal EN: No EN Drainage Mucous Memb. miost Neck: no JVD no JVP Supple no Thyromegalyshort thick neck CVS: S1 S2 possible murmur No Gallop No Rub + Edema right lower extremity which is in a bandage Resp: no Rales no Rhonchi no Acc. Muscle use GI: BAS +ve NO Bruit + RUQ Tender Non Distended : no CVA tenderness; no Suprapubic Tenderness SKIN: No visible petechial rashes, right breen area in a bandage, chronic venous stasis changes noted breast Exam deferred Mu.Sk: Unable to assess for ROM due to lack of cooperation, no obvious muscle Atrophy Heme: Unable to palpate Obvious LAD no palpable splenomegaly NEURO: No asterixis, patient remains drowsy at this time and does not follow commands. Barely able to awaken Psych: Unable to currently assess Vital Signs Vital Signs Date Time Temp Pulse Resp B/P (MAP) Pulse Ox O2 Delivery O2 Flow Rate FiO2 04/28/20 12:00 90 20 166/100 (122) 95 Room Air 04/28/20 02:50 98.5 98.5 Assessment & Plan ESRD: Hemodialysis per outpatient orders. We have requested this from [facility] and are pending at this time. Can dialyze for 3 hours today. Anasarca is noted on CT scan with small pleural effusions: Ultrafiltration as ordered on dialysis Hyponatremia of unclear etiology. If he truly had nausea vomiting then that may be contributing to the same. Other etiologies may need to be evaluated for Anemia in the setting of ESRD no Epogen at this time for hemoglobin 11.3. Transfuse with next HD as needed. HTN: Current BP meds reviewed. Resume oral medications. If unable to restart oral meds, clonidine patch can be considered Bone & Mineral: Follow phosphorus levels and alter binder regimen as needed Abdominal pain: CT scan is reviewed below. General surgery seeing patient. Patient felt to have mesenteric adenitis Discussed Plan of Care and prognosis etc. at length with family. Labs Labs Laboratory Tests Test 04/28/20 02:55 04/28/20 03:05 04/28/20 07:43 04/28/20 11:42 Prothrombin Time 20.2 SEC (11.7-14.0) Prothromb Time International Ratio 1.8 (0.8-1.1) White Blood Count 10.0 x10^3/uL (4.0-11.0) Red Blood Count 3.67 x10^6/uL (4.30-5.70) Hemoglobin 11.3 g/dL (13.0-17.5) Hematocrit 33.4 % (39.0-53.0) Mean Corpuscular Volume 91 fL (79-100) Mean Corpuscular Hemoglobin 31 pg (25-35) Mean Corpuscular Hemoglobin Concent 34 g/dL (31-37) Red Cell Distribution Width 18.2 % (11.5-14.5) Platelet Count 150 x10^3/uL (140-400) Neutrophils (%) (Auto) 77 % (31-73) Lymphocytes (%) (Auto) 12 % (24-48) Monocytes (%) (Auto) 5 % (0-9) Eosinophils (%) (Auto) 5 % (0-3) Basophils (%) (Auto) 2 % (0-3) Neutrophils # (Auto) 7.7 x10^3/uL (1.8-7.7) Lymphocytes # (Auto) 1.2 x10^3/uL (1.0-4.8) Monocytes # (Auto) 0.5 x10^3/uL (0.0-1.1) Eosinophils # (Auto) 0.4 x10^3/uL (0.0-0.7) Basophils # (Auto) 0.2 x10^3/uL (0.0-0.2) Sodium Level 126 mmol/L (136-145) Potassium Level 5.1 mmol/L (3.5-5.1) Chloride Level 89 mmol/L (98-107) Carbon Dioxide Level 33 mmol/L (21-32) Anion Gap 4 (6-14) Blood Urea Nitrogen 44 mg/dL (8-26) Creatinine 7.3 mg/dL (0.7-1.3) Estimated GFR (Cockcroft-Gault) 7.6 BUN/Creatinine Ratio 6 (6-20) Glucose Level 108 mg/dL (70-99) Lactic Acid Level 1.0 mmol/L (0.4-2.0) Calcium Level 9.7 mg/dL (8.5-10.1) Magnesium Level 2.4 mg/dL (1.8-2.4) Total Bilirubin 0.8 mg/dL (0.2-1.0) Aspartate Amino Transf (AST/SGOT) 38 U/L (15-37) Alanine Aminotransferase (ALT/SGPT) 36 U/L (16-63) Alkaline Phosphatase 103 U/L (46-116) Creatine Kinase 50 U/L (39-308) Creatine Kinase MB (Mass) 0.6 ng/mL (0.0-3.6) Creatine Kinase MB Relative Index 1.2 % (0-4) Troponin I Quantitative < 0.017 ng/mL (0.000-0.055) Total Protein 8.2 g/dL (6.4-8.2) Albumin 2.9 g/dL (3.4-5.0) Albumin/Globulin Ratio 0.5 (1.0-1.7) Lipase 48 U/L (73-393) Glucose (Fingerstick) 66 mg/dL (70-99) 82 mg/dL (70-99) Laboratory Tests Test 04/28/20 02:55 04/28/20 03:05 04/28/20 07:43 04/28/20 11:42 Prothrombin Time 20.2 SEC (11.7-14.0) Prothromb Time International Ratio 1.8 (0.8-1.1) White Blood Count 10.0 x10^3/uL (4.0-11.0) Red Blood Count 3.67 x10^6/uL (4.30-5.70) Hemoglobin 11.3 g/dL (13.0-17.5) Hematocrit 33.4 % (39.0-53.0) Mean Corpuscular Volume 91 fL (79-100) Mean Corpuscular Hemoglobin 31 pg (25-35) Mean Corpuscular Hemoglobin Concent 34 g/dL (31-37) Red Cell Distribution Width 18.2 % (11.5-14.5) Platelet Count 150 x10^3/uL (140-400) Neutrophils (%) (Auto) 77 % (31-73) Lymphocytes (%) (Auto) 12 % (24-48) Monocytes (%) (Auto) 5 % (0-9) Eosinophils (%) (Auto) 5 % (0-3) Basophils (%) (Auto) 2 % (0-3) Neutrophils # (Auto) 7.7 x10^3/uL (1.8-7.7) Lymphocytes # (Auto) 1.2 x10^3/uL (1.0-4.8) Monocytes # (Auto) 0.5 x10^3/uL (0.0-1.1) Eosinophils # (Auto) 0.4 x10^3/uL (0.0-0.7) Basophils # (Auto) 0.2 x10^3/uL (0.0-0.2) Sodium Level 126 mmol/L (136-145) Potassium Level 5.1 mmol/L (3.5-5.1) Chloride Level 89 mmol/L (98-107) Carbon Dioxide Level 33 mmol/L (21-32) Anion Gap 4 (6-14) Blood Urea Nitrogen 44 mg/dL (8-26) Creatinine 7.3 mg/dL (0.7-1.3) Estimated GFR (Cockcroft-Gault) 7.6 BUN/Creatinine Ratio 6 (6-20) Glucose Level 108 mg/dL (70-99) Lactic Acid Level 1.0 mmol/L (0.4-2.0) Calcium Level 9.7 mg/dL (8.5-10.1) Magnesium Level 2.4 mg/dL (1.8-2.4) Total Bilirubin 0.8 mg/dL (0.2-1.0) Aspartate Amino Transf (AST/SGOT) 38 U/L (15-37) Alanine Aminotransferase (ALT/SGPT) 36 U/L (16-63) Alkaline Phosphatase 103 U/L (46-116) Creatine Kinase 50 U/L (39-308) Creatine Kinase MB (Mass) 0.6 ng/mL (0.0-3.6) Creatine Kinase MB Relative Index 1.2 % (0-4) Troponin I Quantitative < 0.017 ng/mL (0.000-0.055) Total Protein 8.2 g/dL (6.4-8.2) Albumin 2.9 g/dL (3.4-5.0) Albumin/Globulin Ratio 0.5 (1.0-1.7) Lipase 48 U/L (73-393) Glucose (Fingerstick) 66 mg/dL (70-99) 82 mg/dL (70-99) Review All relevant outside records, renal labs, imaging studies, telemetry/EKG's were reviewed. Images Images IMPRESSION: 1. Small bilateral pleural effusions with adjacent compressive atelectasis. Mild pulmonary vascular congestion may be seen with congestive heart failure. 2. Retroperitoneal and pelvic lymphadenopathy, as detailed above. Findings have progressed. Findings may be reactive, however, lymphoproliferative disorder such as lymphoma cannot be excluded. 3. There is new hazy attenuation within the root of small bowel mesentery which may represent mesenteric adenitis. Findings are not centered along a specific vessel. Thrombophlebitis could have similar appearance. Contrast-enhanced examination could be of benefit. 4. There are 2 left ventral abdominal wall hernias containing nondilated small bowel and large bowel. No bowel obstruction or inflammation. 5. There is diffuse subcutaneous edema along the flanks which may reflect anasarca. Small volume abdominal ascites. 6. Limited evaluation of the upper abdomen secondary to significant motion artifact. 7. Appendix is not definitively visualized. JJ PICKETT MD Apr 28, 2020 13:23
--- NOTE | 2020-04-28 13:24 | PDOC ---
Dialysis Progress Note Date of Service: DATE: 04/28/20 TIME: 13:23 Dialysis Note Dialysis Note Seen on Hemodialysis, tolerating treatment Well so far Vitals on Hemodialysis: 172 / 85 879 afeb General Appearance: Drowsy, barely arousable Neck: No JVD or JVP, short thick neck Chest: CTA Jc Heart: S1 S2 Abdomen - obese and tender to palpate Extremities - No Edema ESRD: Dialysis as below F 180 NR 3.0 Hrs 2 K 2.5 Ca 140 Na 35 HC03 Qb 350 + Qd 500+ Heparin 0 Units Uf 4-5 Kgs or to dry weight as tolerated May give 25-50 gms of 25% Albumin if needed to maintain Hemodynamic stability Treatment plan reviewed and discussed with spare hand carding Vitals Vital Signs Vital Signs Date Time Temp Pulse Resp B/P (MAP) Pulse Ox O2 Delivery O2 Flow Rate FiO2 04/28/20 12:00 90 20 166/100 (122) 95 Room Air 04/28/20 02:50 98.5 98.5 Labs Last Labs Laboratory Tests Test 04/28/20 02:55 04/28/20 03:05 04/28/20 07:43 04/28/20 11:42 Prothrombin Time 20.2 SEC (11.7-14.0) Prothromb Time International Ratio 1.8 (0.8-1.1) White Blood Count 10.0 x10^3/uL (4.0-11.0) Red Blood Count 3.67 x10^6/uL (4.30-5.70) Hemoglobin 11.3 g/dL (13.0-17.5) Hematocrit 33.4 % (39.0-53.0) Mean Corpuscular Volume 91 fL (79-100) Mean Corpuscular Hemoglobin 31 pg (25-35) Mean Corpuscular Hemoglobin Concent 34 g/dL (31-37) Red Cell Distribution Width 18.2 % (11.5-14.5) Platelet Count 150 x10^3/uL (140-400) Neutrophils (%) (Auto) 77 % (31-73) Lymphocytes (%) (Auto) 12 % (24-48) Monocytes (%) (Auto) 5 % (0-9) Eosinophils (%) (Auto) 5 % (0-3) Basophils (%) (Auto) 2 % (0-3) Neutrophils # (Auto) 7.7 x10^3/uL (1.8-7.7) Lymphocytes # (Auto) 1.2 x10^3/uL (1.0-4.8) Monocytes # (Auto) 0.5 x10^3/uL (0.0-1.1) Eosinophils # (Auto) 0.4 x10^3/uL (0.0-0.7) Basophils # (Auto) 0.2 x10^3/uL (0.0-0.2) Sodium Level 126 mmol/L (136-145) Potassium Level 5.1 mmol/L (3.5-5.1) Chloride Level 89 mmol/L (98-107) Carbon Dioxide Level 33 mmol/L (21-32) Anion Gap 4 (6-14) Blood Urea Nitrogen 44 mg/dL (8-26) Creatinine 7.3 mg/dL (0.7-1.3) Estimated GFR (Cockcroft-Gault) 7.6 BUN/Creatinine Ratio 6 (6-20) Glucose Level 108 mg/dL (70-99) Lactic Acid Level 1.0 mmol/L (0.4-2.0) Calcium Level 9.7 mg/dL (8.5-10.1) Magnesium Level 2.4 mg/dL (1.8-2.4) Total Bilirubin 0.8 mg/dL (0.2-1.0) Aspartate Amino Transf (AST/SGOT) 38 U/L (15-37) Alanine Aminotransferase (ALT/SGPT) 36 U/L (16-63) Alkaline Phosphatase 103 U/L (46-116) Creatine Kinase 50 U/L (39-308) Creatine Kinase MB (Mass) 0.6 ng/mL (0.0-3.6) Creatine Kinase MB Relative Index 1.2 % (0-4) Troponin I Quantitative < 0.017 ng/mL (0.000-0.055) Total Protein 8.2 g/dL (6.4-8.2) Albumin 2.9 g/dL (3.4-5.0) Albumin/Globulin Ratio 0.5 (1.0-1.7) Lipase 48 U/L (73-393) Glucose (Fingerstick) 66 mg/dL (70-99) 82 mg/dL (70-99) Laboratory Tests Test 1/2/21 02:55 04/28/20 03:05 04/28/20 07:43 04/28/20 11:42 Prothrombin Time 20.2 SEC (11.7-14.0) Prothromb Time International Ratio 1.8 (0.8-1.1) White Blood Count 10.0 x10^3/uL (4.0-11.0) Red Blood Count 3.67 x10^6/uL (4.30-5.70) Hemoglobin 11.3 g/dL (13.0-17.5) Hematocrit 33.4 % (39.0-53.0) Mean Corpuscular Volume 91 fL (79-100) Mean Corpuscular Hemoglobin 31 pg (25-35) Mean Corpuscular Hemoglobin Concent 34 g/dL (31-37) Red Cell Distribution Width 18.2 % (11.5-14.5) Platelet Count 150 x10^3/uL (140-400) Neutrophils (%) (Auto) 77 % (31-73) Lymphocytes (%) (Auto) 12 % (24-48) Monocytes (%) (Auto) 5 % (0-9) Eosinophils (%) (Auto) 5 % (0-3) Basophils (%) (Auto) 2 % (0-3) Neutrophils # (Auto) 7.7 x10^3/uL (1.8-7.7) Lymphocytes # (Auto) 1.2 x10^3/uL (1.0-4.8) Monocytes # (Auto) 0.5 x10^3/uL (0.0-1.1) Eosinophils # (Auto) 0.4 x10^3/uL (0.0-0.7) Basophils # (Auto) 0.2 x10^3/uL (0.0-0.2) Sodium Level 126 mmol/L (136-145) Potassium Level 5.1 mmol/L (3.5-5.1) Chloride Level 89 mmol/L (98-107) Carbon Dioxide Level 33 mmol/L (21-32) Anion Gap 4 (6-14) Blood Urea Nitrogen 44 mg/dL (8-26) Creatinine 7.3 mg/dL (0.7-1.3) Estimated GFR (Cockcroft-Gault) 7.6 BUN/Creatinine Ratio 6 (6-20) Glucose Level 108 mg/dL (70-99) Lactic Acid Level 1.0 mmol/L (0.4-2.0) Calcium Level 9.7 mg/dL (8.5-10.1) Magnesium Level 2.4 mg/dL (1.8-2.4) Total Bilirubin 0.8 mg/dL (0.2-1.0) Aspartate Amino Transf (AST/SGOT) 38 U/L (15-37) Alanine Aminotransferase (ALT/SGPT) 36 U/L (16-63) Alkaline Phosphatase 103 U/L (46-116) Creatine Kinase 50 U/L (39-308) Creatine Kinase MB (Mass) 0.6 ng/mL (0.0-3.6) Creatine Kinase MB Relative Index 1.2 % (0-4) Troponin I Quantitative < 0.017 ng/mL (0.000-0.055) Total Protein 8.2 g/dL (6.4-8.2) Albumin 2.9 g/dL (3.4-5.0) Albumin/Globulin Ratio 0.5 (1.0-1.7) Lipase 48 U/L (73-393) Glucose (Fingerstick) 66 mg/dL (70-99) 82 mg/dL (70-99) Assessment Assessment Problems Medical Problems: (1) Anasarca Status: Acute (2) ESRD on hemodialysis Status: Acute (3) Hyponatremia Status: Acute (4) Intractable abdominal pain Status: Acute (5) Subtherapeutic international normalized ratio (INR) Status: Acute Plan Plan of Care Problems Medical Problems: (1) Anasarca Status: Acute (2) ESRD on hemodialysis Status: Acute (3) Hyponatremia Status: Acute (4) Intractable abdominal pain Status: Acute (5) Subtherapeutic international normalized ratio (INR) Status: Acute JJ PICKETT MD Apr 28, 2020 13:24
[2020-04-28] MEDS ORDERED: WARF4TAB64 PO (14:12)
[2020-04-28] MEDS ORDERED: BACL10TA PO (14:16)
[2020-04-28] MEDS ORDERED: HYDR-2761 PO (14:16)
[2020-04-28] MEDS ORDERED: INSU100I13 SQ (14:16)
[2020-04-28] MEDS ORDERED: LOSA25TA PO (14:16)
[2020-04-28 16:00] VITALS: BP 211/112
[2020-04-28] MEDS ORDERED: LABETALOL 20 MG/4 ML DISP.SYRIN. IVP PRN (16:45)
[2020-04-28] MEDS: HYDROcodone/APAP 5/325MG 1 TAB TABLET PO PRN (17:52)
[2020-04-28 19:00] VITALS: BP 136/55
[2020-04-28] MEDS: BACLOFEN 10 MG TABLET. PO SCH (20:49)
[2020-04-28] MEDS: TEMAZEPAM 15 MG CAPSULE PO SCH (20:49)
[2020-04-28] MEDS: WARFARIN 4 MG TABLET. PO SCH (20:49)
[2020-04-28] MEDS: NYSTATIN TOPICAL POWDER 15GM BOTTLE. TP SCH (20:50)
[2020-04-28] MEDS: INSULIN GLARGINE SYRINGE. SQ SCH (20:50)
[2020-04-28] MEDS ORDERED: NON FORMULARY ITEM (Melatonin 1 TAB) PO SCH (21:00)
[2020-04-28 23:02] VITALS: BP 127/59
[2020-04-28] MEDS: DEXTROSE 50% 25 GM / 50ML DISP.SYRIN. IV PRN (23:19)
[2020-04-29 03:02] VITALS: BP 145/69
--- NOTE | 2020-04-29 07:48 | EKG ---
[facility] [address] [place] [address] Test Date: 2020-04-28 Test Time: 05:46:16 Pat Name: ELENITA SHEPHERD Department: Room: 530 1 Gender: M Pmo Lead: : 1955 Requested By: KILEY PALMER Order Number: [id number] Reading MD: Juan Jose Harper Measurements Intervals [place] Rate: 94 P: 56 LA: 212 QRS: -57 QRSD: 134 T: 45 QT: 376 QTc: 470 Interpretive Statements SINUS RHYTHM PROLONGED LA INTERVAL ABNORMAL LEFT AXIS DEVIATION LEFT ANTERIOR FASCICULAR BLOCK RIGHT BUNDLE BRANCH BLOCK BIFASCICULAR BLOCK ABNORMAL ECG Electronically Signed On 05-01-2020 13:46:38 INSTALLATION TECHNICIAN by Juan Jose Harper
[2020-04-29] MEDS: INSULIN LISPRO 300 UNITS/3 ML VIAL. SQ SCH ×6 (08:00→17:00)
[2020-04-29 08:47] VITALS: BP 137/81
[2020-04-29] MEDS: INSULIN GLARGINE SYRINGE. SQ SCH ×2 (09:00→21:46)
[2020-04-29] MEDS: NYSTATIN TOPICAL POWDER 15GM BOTTLE. TP SCH ×2 (09:00→21:43)
[2020-04-29 09:23] LABS: BASO % 0 % (0-3); EOS # 0.5 x10^3/uL (0.0-0.7); EOS % 6 % (0-3); HEMATOCRIT 32.5 % (39.0-53.0); HEMOGLOBIN 10.8 g/dL (13.0-17.5); LYMPH # 0.5 x10^3/uL (1.0-4.8); LYMPH % 6 % (24-48); MEAN CORPUSCULAR HEMOGLOBIN 31 pg (25-35); MEAN CORPUSCULAR HGB CONC 33 g/dL (31-37); MEAN CORPUSCULAR VOLUME 92 fL (79-100); MONO # 0.5 x10^3/uL (0.0-1.1); MONO % 5 % (0-9); NEUT # 6.9 x10^3/uL (1.8-7.7); NEUT % 83 % (31-73); PLATELET COUNT 137 x10^3/uL (140-400); RED BLOOD COUNT 3.53 x10^6/uL (4.30-5.70); RED CELL DISTRIBUTION WIDTH 18.5 % (11.5-14.5); WHITE BLOOD COUNT 8.3 x10^3/uL (4.0-11.0)
[2020-04-29 09:47] LABS: CALCIUM 9.5 mg/dL (8.5-10.1); CREATININE 5.9 mg/dL (0.7-1.3); GFR 9.7; MAGNESIUM 2.5 mg/dL (1.8-2.4); PHOSPHORUS 4.7 mg/dL (2.6-4.7)
[2020-04-29] MEDS: LOSARTAN POTASSIUM 25 MG TABLET. PO SCH (09:48)
[2020-04-29] MEDS: VERAPAMIL 40 MG TABLET. PO SCH (09:48)
[2020-04-29] MEDS: BACLOFEN 10 MG TABLET. PO SCH ×3 (09:49→21:41)
[2020-04-29] MEDS: CITALOPRAM 20 MG TABLET. PO SCH (09:49)
[2020-04-29 09:51] LABS: POTASSIUM 5.3 mmol/L (3.5-5.1)
[2020-04-29 11:00] VITALS: BP 122/51
--- NOTE | 2020-04-29 11:29 | PDOC ---
ILYA ULLOA PROJECT CONTROL ANALYST 04/29/20 1129: SURGICAL PROGRESS NOTE DATE: 04/29/20 TIME: 11:27 Subjective a little more alert today no RLQ pain did have vomiting over night, none today Vital Signs Vital Signs Date Time Temp Pulse Resp B/P (MAP) Pulse Ox O2 Delivery O2 Flow Rate FiO2 04/29/20 09:48 93 137/81 04/29/20 08:47 97.7 18 97.7 04/29/20 08:47 95 2.0 04/29/20 08:00 Room Air I&O Intake and Output 04/29/20 07:00 Intake Total 200 ml Output Total 0 ml Balance 200 ml Intake Oral 200 ml Output Urine Total 0 ml # Bowel Movements 1 General: Cooperative, No acute distress Abdomen: Soft, No tenderness Labs Laboratory Tests Test 04/28/20 02:55 04/28/20 03:05 04/28/20 07:43 04/28/20 11:42 Prothrombin Time 20.2 SEC (11.7-14.0) Prothromb Time International Ratio 1.8 (0.8-1.1) White Blood Count 10.0 x10^3/uL (4.0-11.0) Red Blood Count 3.67 x10^6/uL (4.30-5.70) Hemoglobin 11.3 g/dL (13.0-17.5) Hematocrit 33.4 % (39.0-53.0) Mean Corpuscular Volume 91 fL (79-100) Mean Corpuscular Hemoglobin 31 pg (25-35) Mean Corpuscular Hemoglobin Concent 34 g/dL (31-37) Red Cell Distribution Width 18.2 % (11.5-14.5) Platelet Count 150 x10^3/uL (140-400) Neutrophils (%) (Auto) 77 % (31-73) Lymphocytes (%) (Auto) 12 % (24-48) Monocytes (%) (Auto) 5 % (0-9) Eosinophils (%) (Auto) 5 % (0-3) Basophils (%) (Auto) 2 % (0-3) Neutrophils # (Auto) 7.7 x10^3/uL (1.8-7.7) Lymphocytes # (Auto) 1.2 x10^3/uL (1.0-4.8) Monocytes # (Auto) 0.5 x10^3/uL (0.0-1.1) Eosinophils # (Auto) 0.4 x10^3/uL (0.0-0.7) Basophils # (Auto) 0.2 x10^3/uL (0.0-0.2) Sodium Level 126 mmol/L (136-145) Potassium Level 5.1 mmol/L (3.5-5.1) Chloride Level 89 mmol/L (98-107) Carbon Dioxide Level 33 mmol/L (21-32) Anion Gap 4 (6-14) Blood Urea Nitrogen 44 mg/dL (8-26) Creatinine 7.3 mg/dL (0.7-1.3) Estimated GFR (Cockcroft-Gault) 7.6 BUN/Creatinine Ratio 6 (6-20) Glucose Level 108 mg/dL (70-99) Lactic Acid Level 1.0 mmol/L (0.4-2.0) Calcium Level 9.7 mg/dL (8.5-10.1) Magnesium Level 2.4 mg/dL (1.8-2.4) Total Bilirubin 0.8 mg/dL (0.2-1.0) Aspartate Amino Transf (AST/SGOT) 38 U/L (15-37) Alanine Aminotransferase (ALT/SGPT) 36 U/L (16-63) Alkaline Phosphatase 103 U/L (46-116) Creatine Kinase 50 U/L (39-308) Creatine Kinase MB (Mass) 0.6 ng/mL (0.0-3.6) Creatine Kinase MB Relative Index 1.2 % (0-4) Troponin I Quantitative < 0.017 ng/mL (0.000-0.055) Total Protein 8.2 g/dL (6.4-8.2) Albumin 2.9 g/dL (3.4-5.0) Albumin/Globulin Ratio 0.5 (1.0-1.7) Lipase 48 U/L (73-393) Glucose (Fingerstick) 66 mg/dL (70-99) 82 mg/dL (70-99) Test 04/28/20 16:57 04/28/20 20:31 04/28/20 22:45 04/29/20 08:05 Glucose (Fingerstick) 76 mg/dL (70-99) 54 mg/dL (70-99) 65 mg/dL (70-99) 90 mg/dL (70-99) Test 04/29/20 08:25 White Blood Count 8.3 x10^3/uL (4.0-11.0) Red Blood Count 3.53 x10^6/uL (4.30-5.70) Hemoglobin 10.8 g/dL (13.0-17.5) Hematocrit 32.5 % (39.0-53.0) Mean Corpuscular Volume 92 fL (79-100) Mean Corpuscular Hemoglobin 31 pg (25-35) Mean Corpuscular Hemoglobin Concent 33 g/dL (31-37) Red Cell Distribution Width 18.5 % (11.5-14.5) Platelet Count 137 x10^3/uL (140-400) Neutrophils (%) (Auto) 83 % (31-73) Lymphocytes (%) (Auto) 6 % (24-48) Monocytes (%) (Auto) 5 % (0-9) Eosinophils (%) (Auto) 6 % (0-3) Basophils (%) (Auto) 0 % (0-3) Neutrophils # (Auto) 6.9 x10^3/uL (1.8-7.7) Lymphocytes # (Auto) 0.5 x10^3/uL (1.0-4.8) Monocytes # (Auto) 0.5 x10^3/uL (0.0-1.1) Eosinophils # (Auto) 0.5 x10^3/uL (0.0-0.7) Basophils # (Auto) 0.0 x10^3/uL (0.0-0.2) Sodium Level 128 mmol/L (136-145) Potassium Level 5.3 mmol/L (3.5-5.1) Chloride Level 91 mmol/L (98-107) Carbon Dioxide Level 28 mmol/L (21-32) Anion Gap 9 (6-14) Blood Urea Nitrogen 36 mg/dL (8-26) Creatinine 5.9 mg/dL (0.7-1.3) Estimated GFR (Cockcroft-Gault) 9.7 Glucose Level 90 mg/dL (70-99) Calcium Level 9.5 mg/dL (8.5-10.1) Phosphorus Level 4.7 mg/dL (2.6-4.7) Magnesium Level 2.5 mg/dL (1.8-2.4) Laboratory Tests Test 04/28/20 11:42 04/28/20 16:57 04/28/20 20:31 04/28/20 22:45 Glucose (Fingerstick) 82 mg/dL (70-99) 76 mg/dL (70-99) 54 mg/dL (70-99) 65 mg/dL (70-99) Test 04/29/20 08:05 04/29/20 08:25 Glucose (Fingerstick) 90 mg/dL (70-99) White Blood Count 8.3 x10^3/uL (4.0-11.0) Red Blood Count 3.53 x10^6/uL (4.30-5.70) Hemoglobin 10.8 g/dL (13.0-17.5) Hematocrit 32.5 % (39.0-53.0) Mean Corpuscular Volume 92 fL (79-100) Mean Corpuscular Hemoglobin 31 pg (25-35) Mean Corpuscular Hemoglobin Concent 33 g/dL (31-37) Red Cell Distribution Width 18.5 % (11.5-14.5) Platelet Count 137 x10^3/uL (140-400) Neutrophils (%) (Auto) 83 % (31-73) Lymphocytes (%) (Auto) 6 % (24-48) Monocytes (%) (Auto) 5 % (0-9) Eosinophils (%) (Auto) 6 % (0-3) Basophils (%) (Auto) 0 % (0-3) Neutrophils # (Auto) 6.9 x10^3/uL (1.8-7.7) Lymphocytes # (Auto) 0.5 x10^3/uL (1.0-4.8) Monocytes # (Auto) 0.5 x10^3/uL (0.0-1.1) Eosinophils # (Auto) 0.5 x10^3/uL (0.0-0.7) Basophils # (Auto) 0.0 x10^3/uL (0.0-0.2) Sodium Level 128 mmol/L (136-145) Potassium Level 5.3 mmol/L (3.5-5.1) Chloride Level 91 mmol/L (98-107) Carbon Dioxide Level 28 mmol/L (21-32) Anion Gap 9 (6-14) Blood Urea Nitrogen 36 mg/dL (8-26) Creatinine 5.9 mg/dL (0.7-1.3) Estimated GFR (Cockcroft-Gault) 9.7 Glucose Level 90 mg/dL (70-99) Calcium Level 9.5 mg/dL (8.5-10.1) Phosphorus Level 4.7 mg/dL (2.6-4.7) Magnesium Level 2.5 mg/dL (1.8-2.4) Problem List Problems Medical Problems: (1) Anasarca Status: Acute (2) ESRD on hemodialysis Status: Acute (3) Hyponatremia Status: Acute (4) Intractable abdominal pain Status: Acute (5) Subtherapeutic international normalized ratio (INR) Status: Acute Assessment/Plan no current surgical plans will follow check c diff with diarrhea Justicifation of Admission Dx: Justifications for Admission: Justification of Admission Dx: Yes Chronic Renal Failure: Hypertension Cellulitis: Cellulitis AMADA ARCE MD 04/29/20 1315: SURGICAL PROGRESS NOTE Assessment/Plan Abdominal pain essentially resolved. Agree with Ivan assessment plan ILYA ULLOA APRN Apr 29, 2020 11:29 AMADA ARCE MD Apr 29, 2020 13:15
--- NOTE | 2020-04-29 12:11 | PDOC ---
[employer] PROGRESS NOTE Date of Service DOS: DATE: 04/29/20 TIME: 12:09 Chief Complaint Chief Complaint Acute abdominal pain due to mesenteric adenitis and retroperitoneal lymp hadenopathy Large ventral hernias Acute volume overload Acute electrolyte derangementhyponatremia and hypochloremia Severe protein malnutrition ESRD on HD Coagulopathy History of Present Illness History of Present Illness 04/29/2020 Patient seen and examined He got dialysis He came from [facility] His is present and has good support for her He states [place] is not doing much Discussed with RN Chart reviewed Vitals/I&O Vitals/I&O: Vital Signs Date Time Temp Pulse Resp B/P (MAP) Pulse Ox O2 Delivery O2 Flow Rate FiO2 04/29/20 11:00 97.6 87 18 122/51 (74) 99 2.0 97.6 04/29/20 08:00 Room Air I & O 04/28/20 04/28/20 04/29/20 15:00 23:00 07:00 Intake Total 200 ml Output Total 0 ml Balance 200 ml 0 ml Physical Exam General: Cooperative, No acute distress Heart: Regular rate, Normal S1, Normal S2 Lungs: Clear, Crackles Abdomen: Soft, No tenderness Extremities: Other (chronic LE skin changes ) Labs Labs: Laboratory Tests Test 04/28/20 16:57 04/28/20 20:31 04/28/20 22:45 04/29/20 08:05 Glucose (Fingerstick) 76 mg/dL (70-99) 54 mg/dL (70-99) 65 mg/dL (70-99) 90 mg/dL (70-99) Test 04/29/20 08:25 04/29/20 11:19 White Blood Count 8.3 x10^3/uL (4.0-11.0) Red Blood Count 3.53 x10^6/uL (4.30-5.70) Hemoglobin 10.8 g/dL (13.0-17.5) Hematocrit 32.5 % (39.0-53.0) Mean Corpuscular Volume 92 fL (79-100) Mean Corpuscular Hemoglobin 31 pg (25-35) Mean Corpuscular Hemoglobin Concent 33 g/dL (31-37) Red Cell Distribution Width 18.5 % (11.5-14.5) Platelet Count 137 x10^3/uL (140-400) Neutrophils (%) (Auto) 83 % (31-73) Lymphocytes (%) (Auto) 6 % (24-48) Monocytes (%) (Auto) 5 % (0-9) Eosinophils (%) (Auto) 6 % (0-3) Basophils (%) (Auto) 0 % (0-3) Neutrophils # (Auto) 6.9 x10^3/uL (1.8-7.7) Lymphocytes # (Auto) 0.5 x10^3/uL (1.0-4.8) Monocytes # (Auto) 0.5 x10^3/uL (0.0-1.1) Eosinophils # (Auto) 0.5 x10^3/uL (0.0-0.7) Basophils # (Auto) 0.0 x10^3/uL (0.0-0.2) Sodium Level 128 mmol/L (136-145) Potassium Level 5.3 mmol/L (3.5-5.1) Chloride Level 91 mmol/L (98-107) Carbon Dioxide Level 28 mmol/L (21-32) Anion Gap 9 (6-14) Blood Urea Nitrogen 36 mg/dL (8-26) Creatinine 5.9 mg/dL (0.7-1.3) Estimated GFR (Cockcroft-Gault) 9.7 Glucose Level 90 mg/dL (70-99) Calcium Level 9.5 mg/dL (8.5-10.1) Phosphorus Level 4.7 mg/dL (2.6-4.7) Magnesium Level 2.5 mg/dL (1.8-2.4) Glucose (Fingerstick) 156 mg/dL (70-99) Assessment and Plan Assessmemt and Plan Problems Medical Problems: (1) Anasarca Status: Acute (2) ESRD on hemodialysis Status: Acute (3) Hyponatremia Status: Acute (4) Intractable abdominal pain Status: Acute (5) Subtherapeutic international normalized ratio (INR) Status: Acute Acute abdominal pain due to mesenteric adenitis and retroperitoneal lymphadenopathy Large ventral hernias Acute volume overload Acute electrolyte derangementhyponatremia and hypochloremia Severe protein malnutrition ESRD on HD Coagulopathy Plan Hemodialysis Thursday Trend labs Home meds GI consult for mesenteric adenitis Surgery consult for ventral hernias Nephrology consult for missed hemodialysis Warfarin for DVT prophylaxis Protonix GI prophylaxis ADA diet Full code Discussed with RN and SW Disposition pending consultants evaluations Surrogate decision maker is the Comment Review of Relevant I have reviewed the following items joyce (where applicable) has been applied. Medications: Current Medications Medications (Trade) Dose Ordered Sig/Cristian Route PRN Reason Start Time Stop Time Status Last Admin Dose Admin Ondansetron HCl (Zofran) 4 mg PRN Q6HRS PRN IVP NAUSEA/VOMITING 04/28/20 12:30 04/29/20 05:55 Dextrose (Dextrose 50%-Water Syringe) 12.5 gm PRN Q15MIN PRN IV SEE COMMENTS 04/28/20 12:30 04/28/20 23:19 Baclofen (Lioresal) 5 mg TID PO 04/28/20 21:00 04/29/20 09:49 Acetaminophen/ Hydrocodone Bitart (Lortab 5/325) 1 tab PRN Q4HRS PRN PO PAIN 04/28/20 16:45 04/28/20 17:52 Losartan Potassium (Cozaar) 25 mg DAILY PO 04/29/20 09:00 04/29/20 09:48 Nystatin (Nystop) 1 jamila BID TP 04/28/20 21:00 04/29/20 09:00 Temazepam (Restoril) 15 mg QHS PO 04/28/20 21:00 04/28/20 20:49 Warfarin Sodium (Coumadin) 4 mg QHS PO 04/28/20 21:00 04/28/20 20:49 Citalopram Hydrobromide (CeleXA) 20 mg DAILY PO 04/29/20 09:00 04/29/20 09:49 Insulin Human Lispro (HumaLOG) 12 units TIDWMEALS SQ 04/28/20 18:00 04/28/20 18:00 Insulin Glargine (Lantus Syringe) 35 unit BID SQ 04/28/20 21:00 04/29/20 09:00 Verapamil HCl (Calan) 160 mg DAILY PO 04/29/20 09:00 04/29/20 09:48 Justifications for Admission Abdominal Pain Indications Is NPO status required?: Yes Justification for admission: Patient may require to be NPO for greater 24hours making it medically necessary to manage patient as inpatient. Other Justification Intractable pain, left lower extremity wound DAMIAN DURAN III DO Apr 29, 2020 12:11
--- NOTE | 2020-04-29 14:13 | PDOC2 ---
CONSULT Date of Consult Date of Consult DATE: 04/29/20 TIME: 14:12 Reason for Consult Reason for Consult: Hx colon cancer/abnl Ct scan Past Medical History Cardiovascular: HTN, Hyperlipidemia Pulmonary: COPD, Other GI: Constipation, Other Heme/Onc: Anemia NOS Renal/: Chronic renal failure Endocrine: Diabetes, Hyperparathyroidism Past Surgical History Past Surgical History: Colectomy, Colon Resection, Other Family History Family History: Cancer, Diabetes, Hypertension Social History ALCOHOL: none Drugs: None Lives: with Family Current Problem List Problem List Problems Medical Problems: (1) Anasarca Status: Acute (2) ESRD on hemodialysis Status: Acute (3) Hyponatremia Status: Acute (4) Intractable abdominal pain Status: Acute (5) Subtherapeutic international normalized ratio (INR) Status: Acute Current Medications Current Medications Current Medications Famotidine (Pepcid Vial) 20 mg 1X ONCE IVP Last administered on 04/28/20at 03:18; Start 04/28/20 at 03:30; Stop 04/28/20 at 03:31; Status DC Fentanyl Citrate (Fentanyl 2ml Vial) 50 mcg 1X ONCE IV Last administered on 04/28/20at 03:18; Start 04/28/20 at 03:30; Stop 04/28/20 at 03:31; Status DC Sodium Chloride 500 ml @ 500 mls/hr 1X ONCE IV Last administered on 04/28/20at 03:19; Start 04/28/20 at 03:30; Stop 04/28/20 at 04:29; Status DC Fentanyl Citrate (Fentanyl 2ml Vial) 50 mcg 1X ONCE IV Last administered on 04/28/20at 05:16; Start 04/28/20 at 04:00; Stop 04/28/20 at 04:01; Status DC Ondansetron HCl (Zofran) 4 mg PRN Q8HRS PRN IV NAUSEA/VOMITING 1ST CHOICE Last administered on 04/28/20at 23:19; Start 04/28/20 at 05:15; Stop 04/29/20 at 05:14; Status DC Fentanyl Citrate (Fentanyl 2ml Vial) 50 mcg PRN Q2HRS PRN IV SEVERE PAIN 7-10 Last administered on 04/28/20at 22:15; Start 04/28/20 at 05:15; Stop 04/28/20 at 23:00; Status DC Hydralazine HCl (Apresoline Inj) 10 mg PRN Q4HRS PRN IVP ELEVATED BP, SEE COMMENTS Last administered on 04/28/20at 18:00; Start 04/28/20 at 05:15; Stop 04/29/20 at 05:14; Status DC Insulin Human Lispro (HumaLOG) 0-5 UNITS TIDWMEALS SQ ; Start 04/28/20 at 08:00; Stop 04/28/20 at 17:17; Status DC Dextrose (Dextrose 50%-Water Syringe) 12.5 gm PRN Q15MIN PRN IV SEE COMMENTS; Start 04/28/20 at 05:15; Stop 04/28/20 at 12:29; Status DC Hydralazine HCl (Apresoline Inj) 20 mg STK-MED ONCE .ROUTE ; Start 04/28/20 at 05:22; Stop 04/28/20 at 05:22; Status DC Hydralazine HCl (Apresoline Inj) 20 mg 1X ONCE IVP Last administered on 04/28/20at 08:10; Start 04/28/20 at 07:00; Stop 04/28/20 at 07:01; Status DC Lidocaine/ Prilocaine (Emla) 1 lanette 3X/WEEK PRN TP HEMODIALYSIS; Start 04/28/20 at 11:30 Sodium Chloride 1,000 ml @ 1,000 mls/hr Q1H PRN IV hypotension; Start 04/28/20 at 11:30; Stop 04/28/20 at 17:29; Status DC Albumin Human 200 ml @ 200 mls/hr 1X PRN PRN IV Hypotension; Start 04/28/20 at 11:30; Stop 04/28/20 at 17:29; Status DC Sodium Chloride 1,000 ml @ 400 mls/hr Q2H30M PRN IV PATENCY; Start 04/28/20 at 11:30; Stop 04/28/20 at 23:29; Status DC Info (PHARMACY MONITORING -- do not chart) 1 each PRN DAILY PRN MC SEE COMMENTS; Start 04/28/20 at 11:30; Stop 04/28/20 at 11:48; Status DC Info (PHARMACY MONITORING -- do not chart) 1 each PRN DAILY PRN MC SEE COMMENTS; Start 04/28/20 at 11:30 Sennosides (Senna) 17.2 mg PRN BID PRN PO CONSTIPATION; Start 04/28/20 at 12:30 Docusate Sodium (Colace) 100 mg PRN DAILY PRN PO HARD STOOLS; Start 04/28/20 at 12:30 Ondansetron HCl (Zofran) 4 mg PRN Q6HRS PRN IVP NAUSEA/VOMITING Last administered on 04/29/20at 05:55; Start 04/28/20 at 12:30 Insulin Human Lispro (HumaLOG) 0-5 UNITS TIDWMEALS SQ ; Start 04/28/20 at 17:00 Dextrose (Dextrose 50%-Water Syringe) 12.5 gm PRN Q15MIN PRN IV SEE COMMENTS Last administered on 04/28/20at 23:19; Start 04/28/20 at 12:30 Acetaminophen (Tylenol) 650 mg PRN Q4HRS PRN PO TEMP OVER 100.4F OR MILD PAIN; Start 04/28/20 at 12:30 Morphine Sulfate (Morphine Sulfate) 2 mg PRN Q2HR PRN IV SEVERE PAIN 7-10; Start 04/28/20 at 04:00; Stop 04/29/20 at 04:00; Status DC Baclofen (Lioresal) 5 mg TID PO Last administered on 04/29/20 09:49; Start 04/28/20 at 21:00 Acetaminophen/ Hydrocodone Bitart (Lortab 5/325) 1 tab PRN Q4HRS PRN PO PAIN Last administered on 04/28/20at 17:52; Start 04/28/20 at 16:45 Losartan Potassium (Cozaar) 25 mg DAILY PO Last administered on 04/29/20at 09:48; Start 04/29/20 at 09:00 Nystatin (Nystop) 1 lanette BID TP Last administered on 04/29/20at 09:00; Start 04/28/20 at 21:00 Temazepam (Restoril) 15 mg QHS PO Last administered on 04/28/20at 20:49; Start 04/28/20 at 21:00 Warfarin Sodium (Coumadin) 4 mg QHS PO Last administered on 04/28/20at 20:49; Start 04/28/20 at 21:00 Citalopram Hydrobromide (CeleXA) 20 mg DAILY PO Last administered on 1/3/21at 09:49; Start 04/29/20 at 09:00 Insulin Human Lispro (HumaLOG) 12 units TIDWMEALS SQ Last administered on 04/28/20at 18:00; Start 04/28/20 at 18:00 Insulin Glargine (Lantus Syringe) 35 unit BID SQ Last administered on 04/29/20at 09:00; Start 04/28/20 at 21:00 Non-Formulary Medication (Melatonin ) 1 tab QHS PO ; Start 04/28/20 at 21:00; Status UNV Verapamil HCl (Calan) 160 mg DAILY PO Last administered on 04/29/20at 09:48; Start 04/29/20 at 09:00 Labetalol HCl (Normodyne Iv Push) 10 mg PRN Q2HR PRN IVP HYPERTENSION; Start 04/28/20 at 16:45 Warfarin Sodium (Coumadin Per Physician) 1 each PRN DAILY PRN MC SEE COMMENTS; Start 04/28/20 at 17:00 Active Scripts Active Zofran Odt (Ondansetron) 4 Mg Tab.rapdis 4 Mg PO BID PRN Reported Cozaar (Losartan Potassium) 25 Mg Tablet 25 Mg PO DAILY Escitalopram Oxalate 10 Mg Tablet 10 Mg PO DAILY Lantus Solostar (Insulin Glargine,Hum.rec.anlog) 100 Unit/1 Ml Insuln.pen 35 Unit SQ BID Hydrocodone-Apap 5-325 (Hydrocodone Bit/Acetaminophen) 1 Tab Tablet 1 Tab PO PRN Q4HRS PRN Baclofen 10 Mg Tablet 5 Mg PO TID Warfarin Sodium 4 Mg Tablet 4 Mg PO HS Nystatin 15 Gm Powder 1 Lanette TP BID 7 Days apply to affected area(s) Novolog (Insulin Aspart) 100 Unit/1 Ml Vial 12 Unit SQ TIDWMEALS Melatonin 3 Mg Tablet 1 Tab PO QHS Metamucil (Psyllium Husk) 0.52 Gm Capsule 1 Cap PO HS PRN 30 Days Temazepam 15 Mg Capsule 1 Cap PO QHS Verapamil Hcl 80 Mg Tablet 2 Tab PO DAILY hold for SBP <100 Acetaminophen 500 Mg Tablet 1 Tab PO BID PRN Renal Vitamin Tablet (Folic Acid/Vit Bcomp,C) 0.8 Mg Tablet 0.8 Mg PO DAILY Allergies Allergies: Coded Allergies: No Known Drug Allergies (Unverified , 09/27/19) Vitals VITALS Vital Signs Date Time Temp Pulse Resp B/P (MAP) Pulse Ox O2 Delivery O2 Flow Rate FiO2 04/29/20 11:00 97.6 87 18 122/51 (74) 99 2.0 97.6 04/29/20 08:00 Room Air Labs Labs Laboratory Tests Test 04/28/20 02:55 04/28/20 03:05 04/28/20 07:43 04/28/20 11:42 Prothrombin Time 20.2 SEC (11.7-14.0) Prothromb Time International Ratio 1.8 (0.8-1.1) White Blood Count 10.0 x10^3/uL (4.0-11.0) Red Blood Count 3.67 x10^6/uL (4.30-5.70) Hemoglobin 11.3 g/dL (13.0-17.5) Hematocrit 33.4 % (39.0-53.0) Mean Corpuscular Volume 91 fL (79-100) Mean Corpuscular Hemoglobin 31 pg (25-35) Mean Corpuscular Hemoglobin Concent 34 g/dL (31-37) Red Cell Distribution Width 18.2 % (11.5-14.5) Platelet Count 150 x10^3/uL (140-400) Neutrophils (%) (Auto) 77 % (31-73) Lymphocytes (%) (Auto) 12 % (24-48) Monocytes (%) (Auto) 5 % (0-9) Eosinophils (%) (Auto) 5 % (0-3) Basophils (%) (Auto) 2 % (0-3) Neutrophils # (Auto) 7.7 x10^3/uL (1.8-7.7) Lymphocytes # (Auto) 1.2 x10^3/uL (1.0-4.8) Monocytes # (Auto) 0.5 x10^3/uL (0.0-1.1) Eosinophils # (Auto) 0.4 x10^3/uL (0.0-0.7) Basophils # (Auto) 0.2 x10^3/uL (0.0-0.2) Sodium Level 126 mmol/L (136-145) Potassium Level 5.1 mmol/L (3.5-5.1) Chloride Level 89 mmol/L (98-107) Carbon Dioxide Level 33 mmol/L (21-32) Anion Gap 4 (6-14) Blood Urea Nitrogen 44 mg/dL (8-26) Creatinine 7.3 mg/dL (0.7-1.3) Estimated GFR (Cockcroft-Gault) 7.6 BUN/Creatinine Ratio 6 (6-20) Glucose Level 108 mg/dL (70-99) Lactic Acid Level 1.0 mmol/L (0.4-2.0) Calcium Level 9.7 mg/dL (8.5-10.1) Magnesium Level 2.4 mg/dL (1.8-2.4) Total Bilirubin 0.8 mg/dL (0.2-1.0) Aspartate Amino Transf (AST/SGOT) 38 U/L (15-37) Alanine Aminotransferase (ALT/SGPT) 36 U/L (16-63) Alkaline Phosphatase 103 U/L (46-116) Creatine Kinase 50 U/L (39-308) Creatine Kinase MB (Mass) 0.6 ng/mL (0.0-3.6) Creatine Kinase MB Relative Index 1.2 % (0-4) Troponin I Quantitative < 0.017 ng/mL (0.000-0.055) Total Protein 8.2 g/dL (6.4-8.2) Albumin 2.9 g/dL (3.4-5.0) Albumin/Globulin Ratio 0.5 (1.0-1.7) Lipase 48 U/L (73-393) Glucose (Fingerstick) 66 mg/dL (70-99) 82 mg/dL (70-99) Test 04/28/20 16:57 04/28/20 20:31 04/28/20 22:45 04/29/20 08:05 Glucose (Fingerstick) 76 mg/dL (70-99) 54 mg/dL (70-99) 65 mg/dL (70-99) 90 mg/dL (70-99) Test 04/29/20 08:25 04/29/20 11:19 White Blood Count 8.3 x10^3/uL (4.0-11.0) Red Blood Count 3.53 x10^6/uL (4.30-5.70) Hemoglobin 10.8 g/dL (13.0-17.5) Hematocrit 32.5 % (39.0-53.0) Mean Corpuscular Volume 92 fL (79-100) Mean Corpuscular Hemoglobin 31 pg (25-35) Mean Corpuscular Hemoglobin Concent 33 g/dL (31-37) Red Cell Distribution Width 18.5 % (11.5-14.5) Platelet Count 137 x10^3/uL (140-400) Neutrophils (%) (Auto) 83 % (31-73) Lymphocytes (%) (Auto) 6 % (24-48) Monocytes (%) (Auto) 5 % (0-9) Eosinophils (%) (Auto) 6 % (0-3) Basophils (%) (Auto) 0 % (0-3) Neutrophils # (Auto) 6.9 x10^3/uL (1.8-7.7) Lymphocytes # (Auto) 0.5 x10^3/uL (1.0-4.8) Monocytes # (Auto) 0.5 x10^3/uL (0.0-1.1) Eosinophils # (Auto) 0.5 x10^3/uL (0.0-0.7) Basophils # (Auto) 0.0 x10^3/uL (0.0-0.2) Sodium Level 128 mmol/L (136-145) Potassium Level 5.3 mmol/L (3.5-5.1) Chloride Level 91 mmol/L (98-107) Carbon Dioxide Level 28 mmol/L (21-32) Anion Gap 9 (6-14) Blood Urea Nitrogen 36 mg/dL (8-26) Creatinine 5.9 mg/dL (0.7-1.3) Estimated GFR (Cockcroft-Gault) 9.7 Glucose Level 90 mg/dL (70-99) Calcium Level 9.5 mg/dL (8.5-10.1) Phosphorus Level 4.7 mg/dL (2.6-4.7) Magnesium Level 2.5 mg/dL (1.8-2.4) Glucose (Fingerstick) 156 mg/dL (70-99) Laboratory Tests Test 04/28/20 16:57 04/28/20 20:31 04/28/20 22:45 04/29/20 08:05 Glucose (Fingerstick) 76 mg/dL (70-99) 54 mg/dL (70-99) 65 mg/dL (70-99) 90 mg/dL (70-99) Test 04/29/20 08:25 04/29/20 11:19 White Blood Count 8.3 x10^3/uL (4.0-11.0) Red Blood Count 3.53 x10^6/uL (4.30-5.70) Hemoglobin 10.8 g/dL (13.0-17.5) Hematocrit 32.5 % (39.0-53.0) Mean Corpuscular Volume 92 fL (79-100) Mean Corpuscular Hemoglobin 31 pg (25-35) Mean Corpuscular Hemoglobin Concent 33 g/dL (31-37) Red Cell Distribution Width 18.5 % (11.5-14.5) Platelet Count 137 x10^3/uL (140-400) Neutrophils (%) (Auto) 83 % (31-73) Lymphocytes (%) (Auto) 6 % (24-48) Monocytes (%) (Auto) 5 % (0-9) Eosinophils (%) (Auto) 6 % (0-3) Basophils (%) (Auto) 0 % (0-3) Neutrophils # (Auto) 6.9 x10^3/uL (1.8-7.7) Lymphocytes # (Auto) 0.5 x10^3/uL (1.0-4.8) Monocytes # (Auto) 0.5 x10^3/uL (0.0-1.1) Eosinophils # (Auto) 0.5 x10^3/uL (0.0-0.7) Basophils # (Auto) 0.0 x10^3/uL (0.0-0.2) Sodium Level 128 mmol/L (136-145) Potassium Level 5.3 mmol/L (3.5-5.1) Chloride Level 91 mmol/L (98-107) Carbon Dioxide Level 28 mmol/L (21-32) Anion Gap 9 (6-14) Blood Urea Nitrogen 36 mg/dL (8-26) Creatinine 5.9 mg/dL (0.7-1.3) Estimated GFR (Cockcroft-Gault) 9.7 Glucose Level 90 mg/dL (70-99) Calcium Level 9.5 mg/dL (8.5-10.1) Phosphorus Level 4.7 mg/dL (2.6-4.7) Magnesium Level 2.5 mg/dL (1.8-2.4) Glucose (Fingerstick) 156 mg/dL (70-99) Assessment/Plan Assessment/Plan ABnl Ct scan- with history of colon cancer, recurrent disease and/or lymphoma lead differential. Plan CEA level consider biopsy pending above Full note dictated LIVIA PERALTA MD Apr 29, 2020 14:13
[2020-04-29 15:00] VITALS: BP 106/51
[2020-04-29 19:00] VITALS: BP 120/62
[2020-04-29] MEDS: HYDROcodone/APAP 5/325MG 1 TAB TABLET PO PRN (19:19)
--- NOTE | 2020-04-29 19:52 | CONS ---
DATE OF CONSULTATION: 04/29/2020 REASON FOR CONSULTATION: Abnormal CAT scan with increased retroperitoneal lymphadenopathy and history of colon cancer. HISTORY OF PRESENT ILLNESS: A 64-year-old male with past medical history significant for COPD, depression, diabetes, hypertension, chronic renal insufficiency, on dialysis, status post colon resection, is admitted to [facility] with abdominal pain. Subsequent imaging does reveal 2 ventral wall hernias with nondilated small bowel as well as retroperitoneal and pelvic lymphadenopathy, which has progressed from previous studies. Consultation therefore is requested. The patient states that he has intermittent pain with hernias and presently is tolerating p.o. PAST MEDICAL HISTORY: History of renal failure, on dialysis; history of hypertension, diabetes, hyperlipidemia, status post colon resection, dialysis shunt placement. ALLERGIES: None. MEDICATIONS: Include verapamil, citalopram, losartan, insulin, warfarin, nystatin, baclofen, labetalol. FAMILY AND SOCIAL HISTORY: Retired. Does not drink or smoke. REVIEW OF SYSTEMS: Per records. PHYSICAL EXAMINATION: GENERAL: Reveals a well-nourished, well-developed male. VITAL SIGNS: Temperature is 97.6, pulse 87, respiratory rate 18, blood pressure is 110/51. LUNGS: Clear. CARDIOVASCULAR: Reveals an S1, S2 without S3, S4 or appreciable murmur. ABDOMEN: Reveals a soft abdomen. Normal bowel sounds with multiple surgical incisions and appreciable hernias. EXTREMITIES: Reveals no cyanosis, clubbing or edema. LABORATORY STUDIES: Hemoglobin 10.0, hematocrit 32.5, white count 8.3, platelet count 137,000. Sodium 128, potassium 5.39, chloride 91, BUN 36, creatinine 5.9, glucose is 90, calcium 9.5, phosphorus 4.7, magnesium is 2.5, bilirubin is 0.8. CEA level is pending. IMPRESSION: History of colon cancer, abdominal pain, most likely is multifactorial in etiology with increased lymphadenopathy, worrisome for recurrent colon cancer. Await CEA levels. If this is negative, then consideration of biopsies would be pursued. The patient is at high risk for hernia repairs and surgical consultations were then appropriately obtained. LIVIA PERALTA MD DR: MARILYNN/tariq JOB#: [id number] / [id number]
[2020-04-29] MEDS: TEMAZEPAM 15 MG CAPSULE PO SCH (21:41)
[2020-04-29] MEDS: WARFARIN 4 MG TABLET. PO SCH (21:42)
[2020-04-29 23:08] VITALS: BP 112/54
[2020-04-30 03:10] VITALS: BP 124/61
[2020-04-30] MEDS: INSULIN LISPRO 300 UNITS/3 ML VIAL. SQ SCH ×6 (08:00→19:07)
[2020-04-30] MEDS ORDERED: IV DEXTROSE 5% 250 ML IV ONE (08:25)
[2020-04-30] MEDS: DEXTROSE 50% 25 GM / 50ML DISP.SYRIN. IV PRN (08:26)
[2020-04-30] MEDS: INSULIN GLARGINE SYRINGE. SQ SCH ×2 (09:00→21:00)
[2020-04-30] MEDS: BACLOFEN 10 MG TABLET. PO SCH ×3 (09:00→21:39)
[2020-04-30] MEDS: NYSTATIN TOPICAL POWDER 15GM BOTTLE. TP SCH ×2 (09:00→21:39)
[2020-04-30] MEDS ORDERED: IV NORMAL SALINE 1000ML BAG 1,000 ML IV PRN ×2 (09:15)
[2020-04-30] MEDS ORDERED: DIALYSIS PATIENT. MC PRN (09:15)
--- NOTE | 2020-04-30 10:18 | PDOC ---
Date of Service: DATE: 04/30/20 TIME: 10:12 Subjective: Subjective: He is eating breakfast - doesn't show much interest in speaking w/ me - keeps his eyes on the tv and gives one word answers. I asked about pain - "no." I asked if he had stooled - "yes." I asked when his last colonoscopy was - "'95." Objective: Vital Signs: Vital Signs Date Time Temp Pulse Resp B/P (MAP) Pulse Ox O2 Delivery O2 Flow Rate FiO2 04/30/20 03:10 97.5 70 20 124/61 (82) 98 Nasal Cannula 97.5 04/29/20 11:00 2.0 Labs: Laboratory Tests Test 04/29/20 11:19 04/29/20 16:44 04/29/20 20:40 04/30/20 08:24 Glucose (Fingerstick) 156 mg/dL 136 mg/dL 127 mg/dL 39 mg/dL Test 04/30/20 09:00 04/30/20 09:05 Glucose (Fingerstick) 91 mg/dL Glucose Level 80 mg/dL PE: GEN: NAD LUNGS: diminished, NC HEART: RRR ABD: large, soft, apparently non-tender NEURO/PSYCH: A & O 3, very flat A/P: ?abd pain ?vomiting ?diarrhea - eating well this morning Normocytic anemia (iron deficient in 2018), thrombocytopenia Abnormal CT - small bilateral pleural effusions, possible CHF, retroperitoneal and pelvic lymphadenopathy, ?mesenteric adenitis vs thrombophlebitis, left ventral abdominal wall hernias containing small and large bowel, anasarca/small ascites H/o colon cancer s/p resection ESRD -- CEA and C Diff pending. Justicifation of Admission Dx: Justifications for Admission: Justification of Admission Dx: Yes Chronic Renal Failure: Hypertension Cellulitis: Cellulitis TOMASZ BARTHOLOMEW Apr 30, 2020 10:18
--- NOTE | 2020-04-30 11:22 | PDOC ---
ILYA ULLOA [employer]UCK [employer]OPPER 04/30/20 1122: SURGICAL PROGRESS NOTE DATE: 04/30/20 TIME: 11:19 Subjective seen in dialysis no further abdominal pain chronic diarrhea Vital Signs Vital Signs Date Time Temp Pulse Resp B/P (MAP) Pulse Ox O2 Delivery O2 Flow Rate FiO2 04/30/20 03:10 97.5 70 20 124/61 (82) 98 Nasal Cannula 97.5 04/29/20 11:00 2.0 I&O Intake and Output 04/30/20 07:00 Output Total 0 ml Balance 0 ml Output Urine Total 0 ml # Bowel Movements 6 General: Alert, Oriented X3, Cooperative Abdomen: Soft, No tenderness Labs Laboratory Tests Test 04/28/20 11:42 04/28/20 16:57 04/28/20 20:31 04/28/20 22:45 Glucose (Fingerstick) 82 mg/dL (70-99) 76 mg/dL (70-99) 54 mg/dL (70-99) 65 mg/dL (70-99) Test 04/29/20 08:05 04/29/20 08:25 04/29/20 11:19 04/29/20 16:44 Glucose (Fingerstick) 90 mg/dL (70-99) 156 mg/dL (70-99) 136 mg/dL (70-99) White Blood Count 8.3 x10^3/uL (4.0-11.0) Red Blood Count 3.53 x10^6/uL (4.30-5.70) Hemoglobin 10.8 g/dL (13.0-17.5) Hematocrit 32.5 % (39.0-53.0) Mean Corpuscular Volume 92 fL (79-100) Mean Corpuscular Hemoglobin 31 pg (25-35) Mean Corpuscular Hemoglobin Concent 33 g/dL (31-37) Red Cell Distribution Width 18.5 % (11.5-14.5) Platelet Count 137 x10^3/uL (140-400) Neutrophils (%) (Auto) 83 % (31-73) Lymphocytes (%) (Auto) 6 % (24-48) Monocytes (%) (Auto) 5 % (0-9) Eosinophils (%) (Auto) 6 % (0-3) Basophils (%) (Auto) 0 % (0-3) Neutrophils # (Auto) 6.9 x10^3/uL (1.8-7.7) Lymphocytes # (Auto) 0.5 x10^3/uL (1.0-4.8) Monocytes # (Auto) 0.5 x10^3/uL (0.0-1.1) Eosinophils # (Auto) 0.5 x10^3/uL (0.0-0.7) Basophils # (Auto) 0.0 x10^3/uL (0.0-0.2) Sodium Level 128 mmol/L (136-145) Potassium Level 5.3 mmol/L (3.5-5.1) Chloride Level 91 mmol/L (98-107) Carbon Dioxide Level 28 mmol/L (21-32) Anion Gap 9 (6-14) Blood Urea Nitrogen 36 mg/dL (8-26) Creatinine 5.9 mg/dL (0.7-1.3) Estimated GFR (Cockcroft-Gault) 9.7 Glucose Level 90 mg/dL (70-99) Calcium Level 9.5 mg/dL (8.5-10.1) Phosphorus Level 4.7 mg/dL (2.6-4.7) Magnesium Level 2.5 mg/dL (1.8-2.4) Test 04/29/20 20:40 04/30/20 08:24 04/30/20 09:00 04/30/20 09:05 Glucose (Fingerstick) 127 mg/dL (70-99) 39 mg/dL (70-99) 91 mg/dL (70-99) Glucose Level 80 mg/dL (70-99) Laboratory Tests Test 04/29/20 16:44 04/29/20 20:40 04/30/20 08:24 04/30/20 09:00 Glucose (Fingerstick) 136 mg/dL (70-99) 127 mg/dL (70-99) 39 mg/dL (70-99) 91 mg/dL (70-99) Test 04/30/20 09:05 Glucose Level 80 mg/dL (70-99) Problem List Problems Medical Problems: (1) Anasarca Status: Acute (2) ESRD on hemodialysis Status: Acute (3) Hyponatremia Status: Acute (4) Intractable abdominal pain Status: Acute (5) Subtherapeutic international normalized ratio (INR) Status: Acute Assessment/Plan ongoing workup no surgical plans at this time Justicifation of Admission Dx: Justifications for Admission: Justification of Admission Dx: Yes Chronic Renal Failure: Hypertension Cellulitis: Cellulitis AMADA ARCE MD 04/30/20 1352: SURGICAL PROGRESS NOTE Assessment/Plan Agree with Anderson's assessment and plan. Sign off at this time ILYA ULLOA APRN Apr 30, 2020 11:22 AMADA ARCE MD Apr 30, 2020 13:52
--- NOTE | 2020-04-30 13:17 | PDOC ---
DATE OF SERVICE DATE: 04/30/20 TIME: 13:14 SUBJECTIVE ROS seen on Dialysis, no complaints OBJECTIVE Vital Signs Vital Signs Date Time Temp Pulse Resp B/P (MAP) Pulse Ox O2 Delivery O2 Flow Rate FiO2 04/30/20 03:10 97.5 70 20 124/61 (82) 98 Nasal Cannula 97.5 04/29/20 11:00 2.0 I & 0 Intake and Output 04/30/20 07:00 Output Total 0 ml Balance 0 ml Output Urine Total 0 ml # Bowel Movements 6 PHYSICAL EXAM Physical Exam General Appearance: no apparent distress Skin: warm Heart: S1S2 Abdomen: soft, bowel sounds present Extremities: pulses present Neurology: alert DIAGNOSIS/ASSESSMENT Assessment & Plan ESRD - On HD MWF @ [facility] – [place] Seen on HD, tolerating well , continue as tolerated , Nestor Lance HTN: antihypertensives Abdominal pain: CT scan reported mesenteric adenitis Non Compliance COMMENT/RELEVANT DATA Meds Current Medications Medications (Trade) Dose Ordered Sig/Cristian Start Time Stop Time Status Last Admin Dose Admin Acetaminophen (Tylenol) 650 mg PRN Q4HRS PRN 04/28/20 12:30 Acetaminophen/ Hydrocodone Bitart (Lortab 5/325) 1 tab PRN Q4HRS PRN 04/28/20 16:45 04/29/20 19:19 1 TAB Albumin Human 200 ml @ 200 mls/hr 1X PRN PRN 04/28/20 11:30 04/28/20 17:29 DC Baclofen (Lioresal) 5 mg TID 04/28/20 21:00 04/29/20 21:41 5 MG Citalopram Hydrobromide (CeleXA) 20 mg DAILY 04/29/20 09:00 04/29/20 09:49 20 MG Dextrose 250 ml @ As Directed STK-MED ONCE 04/30/20 08:25 04/30/20 08:25 DC Dextrose (Dextrose 50%-Water Syringe) 12.5 gm PRN Q15MIN PRN 04/28/20 12:30 04/30/20 08:26 25 GM Docusate Sodium (Colace) 100 mg PRN DAILY PRN 04/28/20 12:30 Famotidine (Pepcid Vial) 20 mg 1X ONCE 04/28/20 03:30 04/28/20 03:31 DC 04/28/20 03:18 20 MG Fentanyl Citrate (Fentanyl 2ml Vial) 50 mcg PRN Q2HRS PRN 04/28/20 05:15 04/28/20 23:00 DC 04/28/20 22:15 50 MCG Hydralazine HCl (Apresoline Inj) 20 mg 1X ONCE 04/28/20 07:00 04/28/20 07:01 DC 04/28/20 08:10 20 MG Info (PHARMACY MONITORING -- do not chart) 1 each PRN DAILY PRN 04/30/20 09:15 Insulin Glargine (Lantus Syringe) 35 unit BID 04/28/20 21:00 04/29/20 21:46 35 UNIT Insulin Human Lispro (HumaLOG) 12 units TIDWMEALS 04/28/20 18:00 04/28/20 18:00 12 UNITS Labetalol HCl (Normodyne Iv Push) 10 mg PRN Q2HR PRN 04/28/20 16:45 Lidocaine/ Prilocaine (Emla) 1 jamila 3X/WEEK PRN 04/28/20 11:30 Losartan Potassium (Cozaar) 25 mg DAILY 04/29/20 09:00 04/29/20 09:48 25 MG Morphine Sulfate (Morphine Sulfate) 2 mg PRN Q2HR PRN 04/28/20 04:00 04/29/20 04:00 DC Non-Formulary Medication (Melatonin ) 1 tab QHS 04/28/20 21:00 UNV Nystatin (Nystop) 1 jamila BID 04/28/20 21:00 04/29/20 21:43 1 JAMILA Ondansetron HCl (Zofran) 4 mg PRN Q6HRS PRN 04/28/20 12:30 04/29/20 05:55 4 MG Sennosides (Senna) 17.2 mg PRN BID PRN 04/28/20 12:30 Sodium Chloride 1,000 ml @ 400 mls/hr Q2H30M PRN 04/30/20 09:15 04/30/20 21:14 Temazepam (Restoril) 15 mg QHS 04/28/20 21:00 04/29/20 21:41 15 MG Verapamil HCl (Calan) 160 mg DAILY 04/29/20 09:00 04/29/20 09:48 160 MG Warfarin Sodium (Coumadin Per Physician) 1 each PRN DAILY PRN 04/28/20 17:00 Warfarin Sodium (Coumadin) 4 mg QHS 04/28/20 21:00 04/29/20 21:42 4 MG Lab Laboratory Tests Test 04/29/20 16:44 04/29/20 20:40 04/30/20 08:24 04/30/20 09:00 Glucose (Fingerstick) 136 mg/dL (70-99) 127 mg/dL (70-99) 39 mg/dL (70-99) 91 mg/dL (70-99) Test 04/30/20 09:05 Glucose Level 80 mg/dL (70-99) Results All relevant outside records, renal labs, imaging studies, telemetry/EKG's were reviewed. Justicifation of Admission Dx: Justifications for Admission: Justification of Admission Dx: Yes Chronic Renal Failure: Hypertension Cellulitis: Cellulitis ANABEL GARSIA MD Apr 30, 2020 13:17
[2020-04-30 15:00] VITALS: BP 126/63
--- NOTE | 2020-04-30 16:06 | NUR ---
Wound/Ostomy Care Wound Type/Assessment: WC consult for RLE wound and coccyx wound. Treatment Recommendations/Plan: RLE - xeroform and kerlix, Change every 3 days. Coccyx/rosa-anal A&D ointment BID and PRN. Education provided: POC provided to and RN, PU prevention discussed Offloading surface/device: will order P500 Recommended Referrals/Tests: na Discharge Recommendations for dressings: continue as above noted
[2020-04-30] MEDS ORDERED: VITS A & D/LANOLIN TOPICAL OINTMENT 42GM TUBE. TP PRN (16:30)
--- NOTE | 2020-04-30 18:00 | NUR ---
SW following for discharge planning. Spoke with RN and reviewed chart. SW consulted as pt high risk for readmission. Pt on 2l 02, renal diet, C-diff negative. PT/OT to evaluate. SW following.
[2020-04-30] MEDS: CITALOPRAM 20 MG TABLET. PO SCH (18:54)
[2020-04-30] MEDS: LOSARTAN POTASSIUM 25 MG TABLET. PO SCH (18:56)
[2020-04-30] MEDS: VERAPAMIL 40 MG TABLET. PO SCH (18:57)
[2020-04-30 19:00] VITALS: BP 146/74
[2020-04-30] MEDS: WARFARIN 4 MG TABLET. PO SCH (21:38)
[2020-04-30] MEDS: VITS A & D/LANOLIN TOPICAL OINTMENT 42GM TUBE. TP SCH (21:38)
[2020-04-30] MEDS: TEMAZEPAM 15 MG CAPSULE PO SCH (21:38)
--- NOTE | 2020-04-30 22:03 | PDOC ---
PROGRESS NOTES Date of Service: DATE: 04/30/20 TIME: 23:01 Chief Complaint Chief Complaint Acute abdominal pain due to mesenteric adenitis and retroperitoneal lymphadenopathy Large ventral hernias Acute volume overload Acute electrolyte derangementhyponatremia and hypochloremia Severe protein malnutrition ESRD on HD Coagulopathy Plan: awaiting for CEA concern for recurrence of malignancy no surgical plans, field consultant recs appreciated will discharge in the am if ok with GI reeval in the am History of Present Illness History of Present Illness 04/29/2020 Patient seen and examined He got dialysis He came from [facility] His is present and has good support for her He states [place] is not doing much Discussed with RN Chart reviewed 04/30/2020 No acute events reported overnight seems stable no complains during mys visit intermittent pain, no peritoneal signs. Vitals Vitals Vital Signs Date Time Temp Pulse Resp B/P (MAP) Pulse Ox O2 Delivery O2 Flow Rate FiO2 04/30/20 19:00 98.9 89 20 146/74 (98) 91 Nasal Cannula 2.0 98.9 Physical Exam General: Alert, Oriented X3, Cooperative Heart: Regular rate, Normal S1, Normal S2 Lungs: Clear, Crackles Abdomen: Soft, No tenderness Extremities: Other (chronic LE skin changes ) Labs LABS Laboratory Tests Test 04/30/20 08:24 04/30/20 09:00 04/30/20 09:05 04/30/20 16:17 Glucose (Fingerstick) 39 mg/dL (70-99) 91 mg/dL (70-99) 104 mg/dL (70-99) Glucose Level 80 mg/dL (70-99) Test 04/30/20 20:37 Glucose (Fingerstick) 133 mg/dL (70-99) Assessment and Plan Assessmemt and Plan Problems Medical Problems: (1) Anasarca Status: Acute (2) ESRD on hemodialysis Status: Acute (3) Hyponatremia Status: Acute (4) Intractable abdominal pain Status: Acute (5) Subtherapeutic international normalized ratio (INR) Status: Acute Comment Review of Relevant I have reviewed the following items joyce (where applicable) has been applied. Labs Laboratory Tests Test 04/28/20 22:45 04/29/20 08:05 04/29/20 08:25 04/29/20 11:19 Glucose (Fingerstick) 65 mg/dL (70-99) 90 mg/dL (70-99) 156 mg/dL (70-99) White Blood Count 8.3 x10^3/uL (4.0-11.0) Red Blood Count 3.53 x10^6/uL (4.30-5.70) Hemoglobin 10.8 g/dL (13.0-17.5) Hematocrit 32.5 % (39.0-53.0) Mean Corpuscular Volume 92 fL (79-100) Mean Corpuscular Hemoglobin 31 pg (25-35) Mean Corpuscular Hemoglobin Concent 33 g/dL (31-37) Red Cell Distribution Width 18.5 % (11.5-14.5) Platelet Count 137 x10^3/uL (140-400) Neutrophils (%) (Auto) 83 % (31-73) Lymphocytes (%) (Auto) 6 % (24-48) Monocytes (%) (Auto) 5 % (0-9) Eosinophils (%) (Auto) 6 % (0-3) Basophils (%) (Auto) 0 % (0-3) Neutrophils # (Auto) 6.9 x10^3/uL (1.8-7.7) Lymphocytes # (Auto) 0.5 x10^3/uL (1.0-4.8) Monocytes # (Auto) 0.5 x10^3/uL (0.0-1.1) Eosinophils # (Auto) 0.5 x10^3/uL (0.0-0.7) Basophils # (Auto) 0.0 x10^3/uL (0.0-0.2) Sodium Level 128 mmol/L (136-145) Potassium Level 5.3 mmol/L (3.5-5.1) Chloride Level 91 mmol/L (98-107) Carbon Dioxide Level 28 mmol/L (21-32) Anion Gap 9 (6-14) Blood Urea Nitrogen 36 mg/dL (8-26) Creatinine 5.9 mg/dL (0.7-1.3) Estimated GFR (Cockcroft-Gault) 9.7 Glucose Level 90 mg/dL (70-99) Calcium Level 9.5 mg/dL (8.5-10.1) Phosphorus Level 4.7 mg/dL (2.6-4.7) Magnesium Level 2.5 mg/dL (1.8-2.4) Test 04/29/20 14:00 04/29/20 16:44 04/29/20 20:40 04/30/20 08:24 Clostridium difficile Toxin (PCR) Negative (NEGATIVE) Glucose (Fingerstick) 136 mg/dL (70-99) 127 mg/dL (70-99) 39 mg/dL (70-99) Test 04/30/20 09:00 04/30/20 09:05 04/30/20 16:17 04/30/20 20:37 Glucose (Fingerstick) 91 mg/dL (70-99) 104 mg/dL (70-99) 133 mg/dL (70-99) Glucose Level 80 mg/dL (70-99) Laboratory Tests Test 04/30/20 08:24 04/30/20 09:00 04/30/20 09:05 04/30/20 16:17 Glucose (Fingerstick) 39 mg/dL (70-99) 91 mg/dL (70-99) 104 mg/dL (70-99) Glucose Level 80 mg/dL (70-99) Test 04/30/20 20:37 Glucose (Fingerstick) 133 mg/dL (70-99) Medications Current Medications Famotidine (Pepcid Vial) 20 mg 1X ONCE IVP Last administered on 04/28/20at 03:18; Start 04/28/20 at 03:30; Stop 04/28/20 at 03:31; Status DC Fentanyl Citrate (Fentanyl 2ml Vial) 50 mcg 1X ONCE IV Last administered on 04/28/20at 03:18; Start 04/28/20 at 03:30; Stop 04/28/20 at 03:31; Status DC Sodium Chloride 500 ml @ 500 mls/hr 1X ONCE IV Last administered on 04/28/20at 03:19; Start 04/28/20 at 03:30; Stop 04/28/20 at 04:29; Status DC Fentanyl Citrate (Fentanyl 2ml Vial) 50 mcg 1X ONCE IV Last administered on 04/28/20at 05:16; Start 04/28/20 at 04:00; Stop 04/28/20 at 04:01; Status DC Ondansetron HCl (Zofran) 4 mg PRN Q8HRS PRN IV NAUSEA/VOMITING 1ST CHOICE Last administered on 04/28/20at 23:19; Start 04/28/20 at 05:15; Stop 04/29/20 at 05:14; Status DC Fentanyl Citrate (Fentanyl 2ml Vial) 50 mcg PRN Q2HRS PRN IV SEVERE PAIN 7-10 Last administered on 04/28/20at 22:15; Start 04/28/20 at 05:15; Stop 04/28/20 at 23:00; Status DC Hydralazine HCl (Apresoline Inj) 10 mg PRN Q4HRS PRN IVP ELEVATED BP, SEE COMMENTS Last administered on 04/28/20at 18:00; Start 04/28/20 at 05:15; Stop 04/29/20 at 05:14; Status DC Insulin Human Lispro (HumaLOG) 0-5 UNITS TIDWMEALS SQ ; Start 04/28/20 at 08:00; Stop 04/28/20 at 17:17; Status DC Dextrose (Dextrose 50%-Water Syringe) 12.5 gm PRN Q15MIN PRN IV SEE COMMENTS; Start 04/28/20 at 05:15; Stop 04/28/20 at 12:29; Status DC Hydralazine HCl (Apresoline Inj) 20 mg STK-MED ONCE .ROUTE ; Start 04/28/20 at 05:22; Stop 04/28/20 at 05:22; Status DC Hydralazine HCl (Apresoline Inj) 20 mg 1X ONCE IVP Last administered on 04/28/20at 08:10; Start 04/28/20 at 07:00; Stop 04/28/20 at 07:01; Status DC Lidocaine/ Prilocaine (Emla) 1 lanette 3X/WEEK PRN TP HEMODIALYSIS; Start 04/28/20 at 11:30 Sodium Chloride 1,000 ml @ 1,000 mls/hr Q1H PRN IV hypotension; Start 04/28/20 at 11:30; Stop 04/28/20 at 17:29; Status DC Albumin Human 200 ml @ 200 mls/hr 1X PRN PRN IV Hypotension; Start 04/28/20 at 11:30; Stop 04/28/20 at 17:29; Status DC Sodium Chloride 1,000 ml @ 400 mls/hr Q2H30M PRN IV PATENCY; Start 04/28/20 at 11:30; Stop 04/28/20 at 23:29; Status DC Info (PHARMACY MONITORING -- do not chart) 1 each PRN DAILY PRN MC SEE COMMENTS; Start 04/28/20 at 11:30; Stop 04/28/20 at 11:48; Status DC Info (PHARMACY MONITORING -- do not chart) 1 each PRN DAILY PRN MC SEE COMMENTS; Start 04/28/20 at 11:30; Status Cancel Sennosides (Senna) 17.2 mg PRN BID PRN PO CONSTIPATION; Start 04/28/20 at 12:30 Docusate Sodium (Colace) 100 mg PRN DAILY PRN PO HARD STOOLS; Start 04/28/20 at 12:30 Ondansetron HCl (Zofran) 4 mg PRN Q6HRS PRN IVP NAUSEA/VOMITING Last administered on 04/29/20at 05:55; Start 04/28/20 at 12:30 Insulin Human Lispro (HumaLOG) 0-5 UNITS TIDWMEALS SQ ; Start 04/28/20 at 17:00 Dextrose (Dextrose 50%-Water Syringe) 12.5 gm PRN Q15MIN PRN IV SEE COMMENTS La st administered on 04/30/20at 08:26; Start 04/28/20 at 12:30 Acetaminophen (Tylenol) 650 mg PRN Q4HRS PRN PO TEMP OVER 100.4F OR MILD PAIN Last administered on 04/30/20at 19:02; Start 04/28/20 at 12:30 Morphine Sulfate (Morphine Sulfate) 2 mg PRN Q2HR PRN IV SEVERE PAIN 7-10; Start 04/28/20 at 04:00; Stop 04/29/20 at 04:00; Status DC Baclofen (Lioresal) 5 mg TID PO Last administered on 04/30/20at 21:39; Start 04/28/20 at 21:00 Acetaminophen/ Hydrocodone Bitart (Lortab 5/325) 1 tab PRN Q4HRS PRN PO MODERATE - SEVERE PAIN Last administered on 04/29/20at 19:19; Start 04/28/20 at 16:45 Losartan Potassium (Cozaar) 25 mg DAILY PO Last administered on 04/30/20at 18:56; Start 04/29/20 at 09:00 Nystatin (Nystop) 1 lanette BID TP Last administered on 04/30/20at 21:39; Start 04/28/20 at 21:00 Temazepam (Restoril) 15 mg QHS PO Last administered on 04/30/20at 21:38; Start 04/28/20 at 21:00 Warfarin Sodium (Coumadin) 4 mg QHS PO Last administered on 04/30/20at 21:38; Start 04/28/20 at 21:00 Citalopram Hydrobromide (CeleXA) 20 mg DAILY PO Last administered on 04/30/20at 18:54; Start 04/29/20 at 09:00 Insulin Human Lispro (HumaLOG) 12 units TIDWMEALS SQ Last administered on 04/30/20at 19:07; Start 04/28/20 at 18:00 Insulin Glargine (Lantus Syringe) 35 unit BID SQ Last administered on 04/29/20at 21:46; Start 04/28/20 at 21:00 Non-Formulary Medication (Melatonin ) 1 tab QHS PO ; Start 04/28/20 at 21:00; Status UNV Verapamil HCl (Calan) 160 mg DAILY PO Last administered on 04/30/20at 18:57; Start 04/29/20 at 09:00 Labetalol HCl (Normodyne Iv Push) 10 mg PRN Q2HR PRN IVP HYPERTENSION; Start 04/28/20 at 16:45 Warfarin Sodium (Coumadin Per Physician) 1 each PRN DAILY PRN MC SEE COMMENTS Last administered on 04/30/20at 13:50; Start 04/28/20 at 17:00 Dextrose 250 ml @ As Directed STK-MED ONCE IV ; Start 04/30/20 at 08:25; Stop 04/30/20 at 08:25; Status DC Sodium Chloride 1,000 ml @ 1,000 mls/hr Q1H PRN IV hypotension; Start 04/30/20 at 09:15; Stop 04/30/20 at 15:14; Status DC Sodium Chloride 1,000 ml @ 400 mls/hr Q2H30M PRN IV PATENCY; Start 04/30/20 at 09:15; Stop 04/30/20 at 21:14; Status DC Info (PHARMACY MONITORING -- do not chart) 1 each PRN DAILY PRN MC SEE COMMENTS; Start 04/30/20 at 09:15 Vitamin A/Vitamin D (Vitamin A & D Ointment) 1 lanette PRN Q1HR PRN TP SKIN PROTECTION; Start 04/30/20 at 16:30 Vitamin A/Vitamin D (Vitamin A & D Ointment) 1 lanette BID TP Last administered on 04/30/20at 21:38; Start 04/30/20 at 21:00 Active Scripts Active Zofran Odt (Ondansetron) 4 Mg Tab.rapdis 4 Mg PO BID PRN Reported Cozaar (Losartan Potassium) 25 Mg Tablet 25 Mg PO DAILY Escitalopram Oxalate 10 Mg Tablet 10 Mg PO DAILY Lantus Solostar (Insulin Glargine,Hum.rec.anlog) 100 Unit/1 Ml Insuln.pen 35 Unit SQ BID Hydrocodone-Apap 5-325 (Hydrocodone Bit/Acetaminophen) 1 Tab Tablet 1 Tab PO PRN Q4HRS PRN Baclofen 10 Mg Tablet 5 Mg PO TID Warfarin Sodium 4 Mg Tablet 4 Mg PO HS Nystatin 15 Gm Powder 1 Lanette TP BID 7 Days apply to affected area(s) Novolog (Insulin Aspart) 100 Unit/1 Ml Vial 12 Unit SQ TIDWMEALS Melatonin 3 Mg Tablet 1 Tab PO QHS Metamucil (Psyllium Husk) 0.52 Gm Capsule 1 Cap PO HS PRN 30 Days Temazepam 15 Mg Capsule 1 Cap PO QHS Verapamil Hcl 80 Mg Tablet 2 Tab PO DAILY hold for SBP <100 Acetaminophen 500 Mg Tablet 1 Tab PO BID PRN Renal Vitamin Tablet (Folic Acid/Vit Bcomp,C) 0.8 Mg Tablet 0.8 Mg PO DAILY Vitals/I & O Vital Sign - Last 24 Hours 04/29/20 04/30/20 04/30/20 04/30/20 23:08 03:10 08:00 15:00 Temp 97.9 97.5 97.8 97.9 97.5 97.8 Pulse 71 70 87 Resp 18 20 16 B/P (MAP) 112/54 (73) 124/61 (82) 126/63 (84) Pulse Ox 96 98 87 O2 Delivery Nasal Cannula Nasal Cannula Room Air Nasal Cannula O2 Flow Rate 2.0 04/30/20 04/30/20 04/30/20 18:56 18:57 19:00 Temp 98.9 98.9 Pulse 89 89 89 Resp 20 B/P (MAP) 146/74 146/74 146/74 (98) Pulse Ox 91 O2 Delivery Nasal Cannula O2 Flow Rate 2.0 Intake and Output 04/29/20 04/29/20 04/30/20 14:00 22:00 06:00 Output Total 0 ml Balance 0 ml Justicifation of Admission Dx: Justifications for Admission: Justification of Admission Dx: Yes Chronic Renal Failure: Hypertension Cellulitis: Cellulitis JULIOCESAR MUÑOZ MD Apr 30, 2020 22:03
[2020-04-30 23:00] VITALS: BP 114/48
[2020-05-01 03:00] VITALS: BP 121/48
[2020-05-01 07:00] VITALS: BP 132/64
[2020-05-01] MEDS: INSULIN LISPRO 300 UNITS/3 ML VIAL. SQ SCH ×6 (08:00→17:00)
[2020-05-01] MEDS: INSULIN GLARGINE SYRINGE. SQ SCH ×2 (09:00→22:30)
[2020-05-01 11:00] VITALS: BP 148/65
[2020-05-01] MEDS: LOSARTAN POTASSIUM 25 MG TABLET. PO SCH (11:11)
[2020-05-01] MEDS: CITALOPRAM 20 MG TABLET. PO SCH (11:11)
[2020-05-01] MEDS: BACLOFEN 10 MG TABLET. PO SCH ×3 (11:11→22:28)
[2020-05-01] MEDS: VERAPAMIL 40 MG TABLET. PO SCH (11:12)
[2020-05-01] MEDS: NYSTATIN TOPICAL POWDER 15GM BOTTLE. TP SCH ×2 (11:15→21:00)
[2020-05-01] MEDS: VITS A & D/LANOLIN TOPICAL OINTMENT 42GM TUBE. TP SCH ×2 (11:16→21:00)
--- NOTE | 2020-05-01 12:05 | NUR ---
EITAN following for discharge planning. Spoke with RN and reviewed chart. Met with pt. Coordinated care with therapy. Referral phoned and faxed to John with [facility] acute rehab per approval from patient. Patient choice of vendor form completed. Pt was at [facility] prior to this admission. Pt does out-patient dialysis on MWF. EITAN following. Addendum: 05/01/20 at 1635 by JASS LAIRD Spoke with John who stated he is waiting on physician approval to admit and will call nursing lawn and tree service spray supervisor if he gets approval tonight. Pt will likely discharge 05/02 to [facility] acute rehab.
--- NOTE | 2020-05-01 12:12 | PDOC ---
DATE OF SERVICE DATE: 05/01/20 TIME: 12:12 SUBJECTIVE ROS stable OBJECTIVE Vital Signs Vital Signs Date Time Temp Pulse Resp B/P (MAP) Pulse Ox O2 Delivery O2 Flow Rate FiO2 05/01/20 11:12 74 132/64 05/01/20 08:00 Room Air 05/01/20 07:00 97.5 20 94 2.0 97.5 I & 0 Intake and Output 05/01/20 07:00 Intake Total 1000 ml Output Total 0 ml Balance 1000 ml Intake Oral 1000 ml Output Urine Total 0 ml PHYSICAL EXAM Physical Exam General Appearance: no apparent distress Skin: warm Heart: S1S2 Abdomen: soft, bowel sounds present Extremities: pulses present Neurology: alert DIAGNOSIS/ASSESSMENT Assessment & Plan ESRD - On HD MWF @ [facility] [place] No indication for HD today HTN: antihypertensives Abd pain - resolved Diarrhea -C Diff negative Abnormal CT - retroperitoneal and pelvic lymphadenopathy, mesenteric adenitis vs thrombophlebitis, left ventral abdominal wall hernias containing small and large bowel H/o colon cancer s/p resection-CEA pending, will follow. Non Compliance COMMENT/RELEVANT DATA Meds Current Medications Medications (Trade) Dose Ordered Sig/Cristian Start Time Stop Time Status Last Admin Dose Admin Acetaminophen (Tylenol) 650 mg PRN Q4HRS PRN 04/28/20 12:30 04/30/20 19:02 650 MG Acetaminophen/ Hydrocodone Bitart (Lortab 5/325) 1 tab PRN Q4HRS PRN 04/28/20 16:45 04/29/20 19:19 1 TAB Albumin Human 200 ml @ 200 mls/hr 1X PRN PRN 04/28/20 11:30 04/28/20 17:29 DC Baclofen (Lioresal) 5 mg TID 04/28/20 21:00 05/01/20 11:11 5 MG Citalopram Hydrobromide (CeleXA) 20 mg DAILY 04/29/20 09:00 05/01/20 11:11 20 MG Dextrose 250 ml @ As Directed STK-MED ONCE 04/30/20 08:25 04/30/20 08:25 DC Dextrose (Dextrose 50%-Water Syringe) 12.5 gm PRN Q15MIN PRN 04/28/20 12:30 04/30/20 08:26 25 GM Docusate Sodium (Colace) 100 mg PRN DAILY PRN 04/28/20 12:30 Famotidine (Pepcid Vial) 20 mg 1X ONCE 04/28/20 03:30 04/28/20 03:31 DC 04/28/20 03:18 20 MG Fentanyl Citrate (Fentanyl 2ml Vial) 50 mcg PRN Q2HRS PRN 04/28/20 05:15 04/28/20 23:00 DC 04/28/20 22:15 50 MCG Hydralazine HCl (Apresoline Inj) 20 mg 1X ONCE 04/28/20 07:00 04/28/20 07:01 DC 04/28/20 08:10 20 MG Info (PHARMACY MONITORING -- do not chart) 1 each PRN DAILY PRN 04/30/20 09:15 Insulin Glargine (Lantus Syringe) 35 unit BID 04/28/20 21:00 04/29/20 21:46 35 UNIT Insulin Human Lispro (HumaLOG) 12 units TIDWMEALS 04/28/20 18:00 04/30/20 19:07 12 UNITS Labetalol HCl (Normodyne Iv Push) 10 mg PRN Q2HR PRN 04/28/20 16:45 Lidocaine/ Prilocaine (Emla) 1 jamila 3X/WEEK PRN 04/28/20 11:30 Losartan Potassium (Cozaar) 25 mg DAILY 04/29/20 09:00 05/01/20 11:11 25 MG Morphine Sulfate (Morphine Sulfate) 2 mg PRN Q2HR PRN 04/28/20 04:00 04/29/20 04:00 DC Non-Formulary Medication (Melatonin ) 1 tab QHS 04/28/20 21:00 UNV Nystatin (Nystop) 1 jamila BID 04/28/20 21:00 05/01/20 11:15 1 JAMILA Ondansetron HCl (Zofran) 4 mg PRN Q6HRS PRN 04/28/20 12:30 04/29/20 05:55 4 MG Sennosides (Senna) 17.2 mg PRN BID PRN 04/28/20 12:30 Sodium Chloride 1,000 ml @ 400 mls/hr Q2H30M PRN 04/30/20 09:15 04/30/20 21:14 DC Temazepam (Restoril) 15 mg QHS 04/28/20 21:00 04/30/20 21:38 15 MG Verapamil HCl (Calan) 160 mg DAILY 04/29/20 09:00 05/01/20 11:12 160 MG Vitamin A/Vitamin D (Vitamin A & D Ointment) 1 jamila BID 04/30/20 21:00 05/01/20 11:16 1 JAMILA Warfarin Sodium (Coumadin Per Physician) 1 each PRN DAILY PRN 04/28/20 17:00 04/30/20 13:50 1 EACH Warfarin Sodium (Coumadin) 4 mg QHS 04/28/20 21:00 04/30/20 21:38 4 MG Lab Laboratory Tests Test 04/30/20 16:17 04/30/20 20:37 05/01/20 07:49 05/01/20 08:12 Glucose (Fingerstick) 104 mg/dL (70-99) 133 mg/dL (70-99) 63 mg/dL (70-99) 103 mg/dL (70-99) Results All relevant outside records, renal labs, imaging studies, telemetry/EKG's were reviewed. Justicifation of Admission Dx: Justifications for Admission: Justification of Admission Dx: Yes Chronic Renal Failure: Hypertension Cellulitis: Cellulitis ANABEL GARSIA MD May 01, 2020 12:12
--- NOTE | 2020-05-01 12:18 | PDOC ---
Date of Service: DATE: 05/01/20 TIME: 12:15 Subjective: Subjective: Shoulder pain (right). No abd pain. Tolerating diet. Hasn't stooled. Objective: Vital Signs: Vital Signs Date Time Temp Pulse Resp B/P (MAP) Pulse Ox O2 Delivery O2 Flow Rate FiO2 05/01/20 11:12 74 132/64 05/01/20 08:00 Room Air 05/01/20 07:00 97.5 20 94 2.0 97.5 Labs: Laboratory Tests Test 04/30/20 16:17 04/30/20 20:37 05/01/20 07:49 05/01/20 08:12 Glucose (Fingerstick) 104 mg/dL 133 mg/dL 63 mg/dL 103 mg/dL PE: GEN: NAD - up in chair LUNGS: CTAB HEART: RRR ABD: large, soft, non-tender NEURO/PSYCH: A & O 3, more interactive today A/P: Abd pain - resolved Diarrhea - ?better, C Diff negative Normocytic anemia (iron deficient in 2018), thrombocytopenia - checked 04/29/[address] - retroperitoneal and pelvic lymphadenopathy, mesenteric adenitis vs thrombophlebitis, left ventral abdominal wall hernias containing small and large bowel H/o colon cancer s/p resection ESRD -- CEA pending, will follow. Justicifation of Admission Dx: Justifications for Admission: Justification of Admission Dx: Yes Chronic Renal Failure: Hypertension Cellulitis: Cellulitis TOMASZ BARTHOLOMEW May 01, 2020 12:18
[2020-05-01 15:00] VITALS: BP 116/70
[2020-05-01 19:00] VITALS: BP 158/73
--- NOTE | 2020-05-01 20:23 | PDOC ---
PROGRESS NOTES Date of Service: DATE: 05/01/20 TIME: 21:22 Chief Complaint Chief Complaint Acute abdominal pain due to mesenteric adenitis and retroperitoneal lymphadenopathy Large ventral hernias Acute volume overload Acute electrolyte derangementhyponatremia and hypochloremia Severe protein malnutrition ESRD on HD Coagulopathy Plan: awaiting for CEA concern for recurrence of malignancy no surgical plans, acura sales consultant recs appreciated will discharge in the am if ok with GI and placement has been arranged reeval in the am History of Present Illness History of Present Illness 04/29/2020 Patient seen and examined He got dialysis He came from [facility] unit His is present and has good support for her He states [place] is not doing much Discussed with RN Chart reviewed 04/30/2020 No acute events reported overnight seems stable no complains during mys visit intermittent pain, no peritoneal signs. 05/01/2020 CM looking for another facility since he does not want to be at [facility] CEA still pending had dialysis today no complaints during my visit. Vitals Vitals Vital Signs Date Time Temp Pulse Resp B/P (MAP) Pulse Ox O2 Delivery O2 Flow Rate FiO2 05/01/20 15:00 98.8 87 20 116/70 (85) 90 Room Air 98.8 05/01/20 07:00 2.0 Physical Exam General: Alert, Oriented X3, Cooperative Heart: Regular rate, Normal S1, Normal S2 Lungs: Clear, Crackles Abdomen: Soft, No tenderness Extremities: Other (chronic LE skin changes ) Labs LABS Laboratory Tests Test 04/30/20 20:37 05/01/20 07:49 05/01/20 08:12 05/01/20 11:17 Glucose (Fingerstick) 133 mg/dL (70-99) 63 mg/dL (70-99) 103 mg/dL (70-99) 91 mg/dL (70-99) Test 05/01/20 15:57 Glucose (Fingerstick) 93 mg/dL (70-99) Assessment and Plan Assessmemt and Plan Problems Medical Problems: (1) Anasarca Status: Acute (2) ESRD on hemodialysis Status: Acute (3) Hyponatremia Status: Acute (4) Intractable abdominal pain Status: Acute (5) Subtherapeutic international normalized ratio (INR) Status: Acute Comment Review of Relevant I have reviewed the following items joyce (where applicable) has been applied. Labs Laboratory Tests Test 04/29/20 20:40 04/30/20 08:24 04/30/20 09:00 04/30/20 09:05 Glucose (Fingerstick) 127 mg/dL (70-99) 39 mg/dL (70-99) 91 mg/dL (70-99) Glucose Level 80 mg/dL (70-99) Test 04/30/20 16:17 04/30/20 20:37 05/01/20 07:49 05/01/20 08:12 Glucose (Fingerstick) 104 mg/dL (70-99) 133 mg/dL (70-99) 63 mg/dL (70-99) 103 mg/dL (70-99) Test 05/01/20 11:17 05/01/20 15:57 Glucose (Fingerstick) 91 mg/dL (70-99) 93 mg/dL (70-99) Laboratory Tests Test 04/30/20 20:37 05/01/20 07:49 05/01/20 08:12 05/01/20 11:17 Glucose (Fingerstick) 133 mg/dL (70-99) 63 mg/dL (70-99) 103 mg/dL (70-99) 91 mg/dL (70-99) Test 05/01/20 15:57 Glucose (Fingerstick) 93 mg/dL (70-99) Medications Current Medications Famotidine (Pepcid Vial) 20 mg 1X ONCE IVP Last administered on 04/28/20at 03:18; Start 04/28/20 at 03:30; Stop 04/28/20 at 03:31; Status DC Fentanyl Citrate (Fentanyl 2ml Vial) 50 mcg 1X ONCE IV Last administered on 04/28/20at 03:18; Start 04/28/20 at 03:30; Stop 04/28/20 at 03:31; Status DC Sodium Chloride 500 ml @ 500 mls/hr 1X ONCE IV Last administered on 04/28/20at 03:19; Start 04/28/20 at 03:30; Stop 04/28/20 at 04:29; Status DC Fentanyl Citrate (Fentanyl 2ml Vial) 50 mcg 1X ONCE IV Last administered on 04/28/20at 05:16; Start 04/28/20 at 04:00; Stop 04/28/20 at 04:01; Status DC Ondansetron HCl (Zofran) 4 mg PRN Q8HRS PRN IV NAUSEA/VOMITING 1ST CHOICE Last administered on 04/28/20at 23:19; Start 04/28/20 at 05:15; Stop 04/29/20 at 05:14; Status DC Fentanyl Citrate (Fentanyl 2ml Vial) 50 mcg PRN Q2HRS PRN IV SEVERE PAIN 7-10 Last administered on 04/28/20at 22:15; Start 04/28/20 at 05:15; Stop 04/28/20 at 23:00; Status DC Hydralazine HCl (Apresoline Inj) 10 mg PRN Q4HRS PRN IVP ELEVATED BP, SEE COMMENTS Last administered on 04/28/20at 18:00; Start 04/28/20 at 05:15; Stop 04/29/20 at 05:14; Status DC Insulin Human Lispro (HumaLOG) 0-5 UNITS TIDWMEALS SQ ; Start 04/28/20 at 08:00; Stop 04/28/20 at 17:17; Status DC Dextrose (Dextrose 50%-Water Syringe) 12.5 gm PRN Q15MIN PRN IV SEE COMMENTS; Start 04/28/20 at 05:15; Stop 04/28/20 at 12:29; Status DC Hydralazine HCl (Apresoline Inj) 20 mg STK-MED ONCE .ROUTE ; Start 04/28/20 at 05:22; Stop 04/28/20 at 05:22; Status DC Hydralazine HCl (Apresoline Inj) 20 mg 1X ONCE IVP Last administered on 04/28/20at 08:10; Start 04/28/20 at 07:00; Stop 04/28/20 at 07:01; Status DC Lidocaine/ Prilocaine (Emla) 1 lanette 3X/WEEK PRN TP HEMODIALYSIS; Start 04/28/20 at 11:30 Sodium Chloride 1,000 ml @ 1,000 mls/hr Q1H PRN IV hypotension; Start 04/28/20 at 11:30; Stop 04/28/20 at 17:29; Status DC Albumin Human 200 ml @ 200 mls/hr 1X PRN PRN IV Hypotension; Start 04/28/20 at 11:30; Stop 04/28/20 at 17:29; Status DC Sodium Chloride 1,000 ml @ 400 mls/hr Q2H30M PRN IV PATENCY; Start 04/28/20 at 11:30; Stop 04/28/20 at 23:29; Status DC Info (PHARMACY MONITORING -- do not chart) 1 each PRN DAILY PRN MC SEE COMMENTS; Start 04/28/20 at 11:30; Stop 04/28/20 at 11:48; Status DC Info (PHARMACY MONITORING -- do not chart) 1 each PRN DAILY PRN MC SEE COMMENTS; Start 04/28/20 at 11:30; Status Cancel Sennosides (Senna) 17.2 mg PRN BID PRN PO CONSTIPATION; Start 04/28/20 at 12:30 Docusate Sodium (Colace) 100 mg PRN DAILY PRN PO HARD STOOLS; Start 04/28/20 at 12:30 Ondansetron HCl (Zofran) 4 mg PRN Q6HRS PRN IVP NAUSEA/VOMITING Last administered on 04/29/20at 05:55; Start 04/28/20 at 12:30 Insulin Human Lispro (HumaLOG) 0-5 UNITS TIDWMEALS SQ ; Start 04/28/20 at 17:00 Dextrose (Dextrose 50%-Water Syringe) 12.5 gm PRN Q15MIN PRN IV SEE COMMENTS Last administered on 04/30/20at 08:26; Start 04/28/20 at 12:30 Acetaminophen (Tylenol) 650 mg PRN Q4HRS PRN PO TEMP OVER 100.4F OR MILD PAIN Last administered on 04/30/20at 19:02; Start 04/28/20 at 12:30 Morphine Sulfate (Morphine Sulfate) 2 mg PRN Q2HR PRN IV SEVERE PAIN 7-10; Start 04/28/20 at 04:00; Stop 04/29/20 at 04:00; Status DC Baclofen (Lioresal) 5 mg TID PO Last administered on 05/01/20at 11:11; Start 04/28/20 at 21:00 Acetaminophen/ Hydrocodone Bitart (Lortab 5/325) 1 tab PRN Q4HRS PRN PO MODERATE - SEVERE PAIN Last administered on 04/29/20at 19:19; Start 04/28/20 at 16:45 Losartan Potassium (Cozaar) 25 mg DAILY PO Last administered on 1/5/21at 11:11; Start 04/29/20 at 09:00 Nystatin (Nystop) 1 lanette BID TP Last administered on 05/01/20 11:15; Start 04/28/20 at 21:00 Temazepam (Restoril) 15 mg QHS PO Last administered on 04/30/20at 21:38; Start 04/28/20 at 21:00 Warfarin Sodium (Coumadin) 4 mg QHS PO Last administered on 04/30/20at 21:38; Start 04/28/20 at 21:00 Citalopram Hydrobromide (CeleXA) 20 mg DAILY PO Last administered on 05/01/20 11:11; Start 04/29/20 at 09:00 Insulin Human Lispro (HumaLOG) 12 units TIDWMEALS SQ Last administered on 04/30/20at 19:07; Start 04/28/20 at 18:00 Insulin Glargine (Lantus Syringe) 35 unit BID SQ Last administered on 04/29/20at 21:46; Start 04/28/20 at 21:00; Stop 05/01/20 at 18:18; Status DC Non-Formulary Medication (Melatonin ) 1 tab QHS PO ; Start 04/28/20 at 21:00; Status UNV Verapamil HCl (Calan) 160 mg DAILY PO Last administered on 05/01/20at 11:12; Start 04/29/20 at 09:00 Labetalol HCl (Normodyne Iv Push) 10 mg PRN Q2HR PRN IVP HYPERTENSION; Start 04/28/20 at 16:45 Warfarin Sodium (Coumadin Per Physician) 1 each PRN DAILY PRN MC SEE COMMENTS Last administered on 05/01/20at 14:34; Start 04/28/20 at 17:00 Dextrose 250 ml @ As Directed STK-MED ONCE IV ; Start 04/30/20 at 08:25; Stop 04/30/20 at 08:25; Status DC Sodium Chloride 1,000 ml @ 1,000 mls/hr Q1H PRN IV hypotension; Start 04/30/20 at 09:15; Stop 04/30/20 at 15:14; Status DC Sodium Chloride 1,000 ml @ 400 mls/hr Q2H30M PRN IV PATENCY; Start 04/30/20 at 09:15; Stop 04/30/20 at 21:14; Status DC Info (PHARMACY MONITORING -- do not chart) 1 each PRN DAILY PRN MC SEE COMMENTS; Start 04/30/20 at 09:15 Vitamin A/Vitamin D (Vitamin A & D Ointment) 1 lanette PRN Q1HR PRN TP SKIN PROTECTION; Start 04/30/20 at 16:30 Vitamin A/Vitamin D (Vitamin A & D Ointment) 1 lanette BID TP Last administered on 05/01/20at 11:16; Start 04/30/20 at 21:00 Insulin Glargine (Lantus Syringe) 10 unit QHS SQ ; Start 05/01/20 at 21:00 Active Scripts Active Zofran Odt (Ondansetron) 4 Mg Tab.rapdis 4 Mg PO BID PRN Reported Cozaar (Losartan Potassium) 25 Mg Tablet 25 Mg PO DAILY Escitalopram Oxalate 10 Mg Tablet 10 Mg PO DAILY Lantus Solostar (Insulin Glargine,Hum.rec.anlog) 100 Unit/1 Ml Insuln.pen 35 Unit SQ BID Hydrocodone-Apap 5-325 (Hydrocodone Bit/Acetaminophen) 1 Tab Tablet 1 Tab PO PRN Q4HRS PRN Baclofen 10 Mg Tablet 5 Mg PO TID Warfarin Sodium 4 Mg Tablet 4 Mg PO HS Nystatin 15 Gm Powder 1 Lanette TP BID 7 Days apply to affected area(s) Novolog (Insulin Aspart) 100 Unit/1 Ml Vial 12 Unit SQ TIDWMEALS Melatonin 3 Mg Tablet 1 Tab PO QHS Metamucil (Psyllium Husk) 0.52 Gm Capsule 1 Cap PO HS PRN 30 Days Temazepam 15 Mg Capsule 1 Cap PO QHS Verapamil Hcl 80 Mg Tablet 2 Tab PO DAILY hold for SBP <100 Acetaminophen 500 Mg Tablet 1 Tab PO BID PRN Renal Vitamin Tablet (Folic Acid/Vit Bcomp,C) 0.8 Mg Tablet 0.8 Mg PO DAILY Vitals/I & O Vital Sign - Last 24 Hours 04/30/20 05/01/20 05/01/20 05/01/20 23:00 03:00 07:00 08:00 Temp 98.9 98.5 97.5 98.9 98.5 97.5 Pulse 65 69 74 Resp 20 20 20 B/P (MAP) 114/48 (70) 121/48 (72) 132/64 (86) Pulse Ox 94 94 94 O2 Delivery Nasal Cannula Nasal Cannula Nasal Cannula Room Air O2 Flow Rate 2.0 2.0 2.0 05/01/20 05/01/20 05/01/20 05/01/20 11:00 11:11 11:12 15:00 Temp 98.0 98.8 98.0 98.8 Pulse 73 74 74 87 Resp 20 20 B/P (MAP) 148/65 (92) 132/64 132/64 116/70 (85) Pulse Ox 90 O2 Delivery Room Air Room Air Intake and Output 04/30/20 04/30/20 05/01/20 14:00 22:00 06:00 Intake Total 200 ml 800 ml Output Total 0 ml Balance 200 ml 800 ml Justicifation of Admission Dx: Justifications for Admission: Justification of Admission Dx: Yes Chronic Renal Failure: Hypertension Cellulitis: Cellulitis JULIOCESAR MUÑOZ MD May 01, 2020 20:23
[2020-05-01] MEDS: WARFARIN 4 MG TABLET. PO SCH (22:27)
[2020-05-01] MEDS: TEMAZEPAM 15 MG CAPSULE PO SCH (22:28)
[2020-05-01 23:00] VITALS: BP 157/77
[2020-05-02 03:00] VITALS: BP 163/80
[2020-05-02 07:00] VITALS: BP 195/87
[2020-05-02] MEDS ORDERED: IV NORMAL SALINE 1000ML BAG 1,000 ML IV PRN ×2 (07:30)
[2020-05-02] MEDS ORDERED: ALBUMIN HUMAN 25% 200 ML IV PRN (07:30)
[2020-05-02] MEDS: INSULIN LISPRO 300 UNITS/3 ML VIAL. SQ SCH ×6 (08:00→17:00)
[2020-05-02 08:26] LABS: PROTHROMBIN TIME PATIENT 30.8 SEC (11.7-14.0)
[2020-05-02 08:37] LABS: CALCIUM 9.5 mg/dL (8.5-10.1); CREATININE 6.9 mg/dL (0.7-1.3); GFR 8.1; POTASSIUM 4.6 mmol/L (3.5-5.1)
[2020-05-02] MEDS: CITALOPRAM 20 MG TABLET. PO SCH (09:00)
[2020-05-02] MEDS: BACLOFEN 10 MG TABLET. PO SCH ×3 (09:00→20:45)
[2020-05-02] MEDS ORDERED: DIALYSIS PATIENT. MC PRN (09:45)
[2020-05-02 11:00] VITALS: BP 181/61
--- NOTE | 2020-05-02 11:10 | NUR ---
EITAN following for discharge planning. Spoke with RN and reviewed chart. Spoke with John from [facility] acute rehab. Pt has been accepted once he completes dialysis today. Spoke with dialysis nurse and pt will be done around noon. EITAN LVM for Jeanie in admissions with [facility] about a bed and transportation time. EITAN requested discharge orders from Dr. Sykes. EITAN spoke with Tiki from [place] who will gather pt's belonging and leave them at the electrician front for to get. updated. EITAN following. Addendum: 05/02/20 at 1318 by JASS LAIRD Spoke with admissions and they won't have a dialysis acute rehab bed prior to 05/04. RN notified. LVM for .
--- NOTE | 2020-05-02 11:51 | PDOC ---
Date of Service: DATE: 05/02/20 TIME: 11:48 Subjective: Subjective: Denies abdominal pain. Says diarrhea "not bad." Objective: Vital Signs: Vital Signs Date Time Temp Pulse Resp B/P (MAP) Pulse Ox O2 Delivery O2 Flow Rate FiO2 05/02/20 11:00 97.9 78 16 181/61 (101) 97 Room Air 97.9 05/02/20 07:00 2.0 Labs: Laboratory Tests Test 05/01/20 15:57 05/01/20 21:29 05/02/20 08:16 05/02/20 11:05 Glucose (Fingerstick) 93 mg/dL (70-99) 151 mg/dL (70-99) 147 mg/dL (70-99) 89 mg/dL (70-99) PE: GEN: NAD - just finished dialysis LUNGS: CTAB HEART: RRR ABD: large, soft, non-tender NEURO/PSYCH: A & O 3, flat A/P: Abd pain - resolved Diarrhea - once today per staff, C Diff negative Normocytic anemia (iron deficient in 2018), thrombocytopenia - checked 04/29/[address] - retroperitoneal and pelvic lymphadenopathy, mesenteric adenitis vs thrombophlebitis, left ventral abdominal wall hernias containing small and large bowel H/o colon cancer s/p resection -- CEA normal. Nurse tells me he will discharge to rehab today. Has previously discussed possible need for biopsy re: lymphadenopathy - will re view w/ Dr. Schilling. Update - now nurse says not discharging to Thursday at the earliest due to lack of beds and needing to dialyze here more. Will ask IR re: possible biopsy prior to release. Justicifation of Admission Dx: Justifications for Admission: Justification of Admission Dx: Yes Chronic Renal Failure: Hypertension Cellulitis: Cellulitis TOMASZ BARTHOLOMEW May 02, 2020 11:51
[2020-05-02] MEDS: VERAPAMIL 40 MG TABLET. PO SCH (12:07)
[2020-05-02] MEDS: VITS A & D/LANOLIN TOPICAL OINTMENT 42GM TUBE. TP SCH ×2 (12:07→21:00)
[2020-05-02] MEDS: LOSARTAN POTASSIUM 25 MG TABLET. PO SCH (12:07)
[2020-05-02] MEDS: NYSTATIN TOPICAL POWDER 15GM BOTTLE. TP SCH ×2 (12:07→21:00)
--- NOTE | 2020-05-02 13:13 | PDOC ---
DATE OF SERVICE DATE: 05/02/20 TIME: 13:13 SUBJECTIVE ROS stable OBJECTIVE Vital Signs Vital Signs Date Time Temp Pulse Resp B/P (MAP) Pulse Ox O2 Delivery O2 Flow Rate FiO2 05/02/20 12:07 78 181/61 05/02/20 11:00 97.9 16 97 Room Air 97.9 05/02/20 07:00 2.0 I & 0 Intake and Output 05/02/20 07:00 Intake Total 400 ml Output Total 0 ml Balance 400 ml Intake Oral 400 ml Output Urine Total 0 ml # Voids 3 PHYSICAL EXAM Physical Exam General Appearance: no apparent distress Skin: warm Heart: S1S2 Abdomen: soft, bowel sounds present Extremities: pulses present Neurology: alert DIAGNOSIS/ASSESSMENT Assessment & Plan ESRD - On HD MWF @ [facility] [place] Seen on HD, tolerating well, continue as odered , Nestor Lance HTN: antihypertensives Abd pain - resolved Diarrhea -C Diff negative Abnormal CT - retroperitoneal and pelvic lymphadenopathy, mesenteric adenitis vs thrombophlebitis, left ventral abdominal wall hernias containing small and large bowel H/o colon cancer s/p resection-CEA pending, will follow. Non Compliance COMMENT/RELEVANT DATA Meds Current Medications Medications (Trade) Dose Ordered Sig/Cristian Start Time Stop Time Status Last Admin Dose Admin Acetaminophen (Tylenol) 650 mg PRN Q4HRS PRN 04/28/20 12:30 04/30/20 19:02 650 MG Acetaminophen/ Hydrocodone Bitart (Lortab 5/325) 1 tab PRN Q4HRS PRN 04/28/20 16:45 04/29/20 19:19 1 TAB Albumin Human 200 ml @ 200 mls/hr 1X PRN PRN 05/02/20 07:30 05/02/20 13:29 Baclofen (Lioresal) 5 mg TID 04/28/20 21:00 05/02/20 12:07 5 MG Citalopram Hydrobromide (CeleXA) 20 mg DAILY 04/29/20 09:00 05/02/20 09:00 20 MG Dextrose 250 ml @ As Directed STK-MED ONCE 04/30/20 08:25 04/30/20 08:25 DC Dextrose (Dextrose 50%-Water Syringe) 12.5 gm PRN Q15MIN PRN 04/28/20 12:30 04/30/20 08:26 25 GM Docusate Sodium (Colace) 100 mg PRN DAILY PRN 04/28/20 12:30 Famotidine (Pepcid Vial) 20 mg 1X ONCE 04/28/20 03:30 04/28/20 03:31 DC 04/28/20 03:18 20 MG Fentanyl Citrate (Fentanyl 2ml Vial) 50 mcg PRN Q2HRS PRN 04/28/20 05:15 04/28/20 23:00 DC 04/28/20 22:15 50 MCG Hydralazine HCl (Apresoline Inj) 20 mg 1X ONCE 04/28/20 07:00 04/28/20 07:01 DC 04/28/20 08:10 20 MG Info (PHARMACY MONITORING -- do not chart) 1 each PRN DAILY PRN 05/02/20 09:45 Insulin Glargine (Lantus Syringe) 10 unit QHS 05/01/20 21:00 05/01/20 22:30 10 UNIT Insulin Human Lispro (HumaLOG) 12 units TIDWMEALS 04/28/20 18:00 04/30/20 19:07 12 UNITS Labetalol HCl (Normodyne Iv Push) 10 mg PRN Q2HR PRN 04/28/20 16:45 Lidocaine/ Prilocaine (Emla) 1 jamila 3X/WEEK PRN 04/28/20 11:30 Losartan Potassium (Cozaar) 25 mg DAILY 04/29/20 09:00 05/02/20 12:07 25 MG Morphine Sulfate (Morphine Sulfate) 2 mg PRN Q2HR PRN 04/28/20 04:00 04/29/20 04:00 DC Non-Formulary Medication (Melatonin ) 1 tab QHS 04/28/20 21:00 UNV Nystatin (Nystop) 1 jamila BID 04/28/20 21:00 05/02/20 12:07 1 JAMILA Ondansetron HCl (Zofran) 4 mg PRN Q6HRS PRN 04/28/20 12:30 04/29/20 05:55 4 MG Sennosides (Senna) 17.2 mg PRN BID PRN 04/28/20 12:30 Sodium Chloride 1,000 ml @ 400 mls/hr Q2H30M PRN 05/02/20 07:30 05/02/20 19:29 Temazepam (Restoril) 15 mg QHS 04/28/20 21:00 05/01/20 22:28 15 MG Verapamil HCl (Calan) 160 mg DAILY 04/29/20 09:00 05/02/20 12:07 160 MG Vitamin A/Vitamin D (Vitamin A & D Ointment) 1 jamila BID 04/30/20 21:00 05/02/20 12:07 1 JAMILA Warfarin Sodium (Coumadin Per Physician) 1 each PRN DAILY PRN 04/28/20 17:00 05/01/20 14:34 1 EACH Warfarin Sodium (Coumadin) 4 mg QHS 04/28/20 21:00 05/01/20 22:27 4 MG Lab Laboratory Tests Test 05/01/20 15:57 05/01/20 21:29 05/02/20 07:35 05/02/20 08:16 Glucose (Fingerstick) 93 mg/dL (70-99) 151 mg/dL (70-99) 147 mg/dL (70-99) Prothrombin Time 30.8 SEC (11.7-14.0) Prothromb Time International Ratio 2.9 (0.8-1.1) Sodium Level 128 mmol/L (136-145) Potassium Level 4.6 mmol/L (3.5-5.1) Chloride Level 92 mmol/L (98-107) Carbon Dioxide Level 28 mmol/L (21-32) Anion Gap 8 (6-14) Blood Urea Nitrogen 45 mg/dL (8-26) Creatinine 6.9 mg/dL (0.7-1.3) Estimated GFR (Cockcroft-Gault) 8.1 Glucose Level 127 mg/dL (70-99) Calcium Level 9.5 mg/dL (8.5-10.1) Test 05/02/20 11:05 Glucose (Fingerstick) 89 mg/dL (70-99) Results All relevant outside records, renal labs, imaging studies, telemetry/EKG's were reviewed. Justicifation of Admission Dx: Justifications for Admission: Justification of Admission Dx: Yes Chronic Renal Failure: Hypertension Cellulitis: Cellulitis ANABEL GARSIA MD May 02, 2020 13:13
[2020-05-02] MEDS ORDERED: INSU100V8 SQ (14:55)
--- NOTE | 2020-05-02 14:56 | SNU/HH DC ---
DISCHARGE ORDERS DISCHARGE INFORMATION: DISCHARGE DATE: May 02, 2020 FINAL DIAGNOSIS Problems Medical Problems: (1) Anasarca Status: Acute (2) ESRD on hemodialysis Status: Acute (3) Hyponatremia Status: Acute (4) Intractable abdominal pain Status: Acute (5) Subtherapeutic international normalized ratio (INR) Status: Acute CONDITION ON DISCHARGE: Stable CODE STATUS: Code Status: Full SNF: SNF STAY <30 DAYS: Yes POST DISCHARGE ORDERS: ACTIVITY ORDERS: Activity as tolerated, Avoid exertion WEIGHT BEARING STATUS: As tolerated BATHING ORDERS: Shower-keep dressing dry DIET AFTER DISCHARGE: Renal WOUND/INCISION CARE: Change dressing CHECKS AFTER DISCHARGE: CHECKS AFTER DISCHARGE: Check blood press - daily, Check blood sugar, ac/hs, Weigh Yourself Daily FOLLOW-UP: LAB ORDERS FOR FOLLOW-UP: DAILY INR X 3 DAYS TREATMENT/EQUIPMENT ORDERS: ADAPTIVE EQUIPMENT NEEDED: None Physical Therapy For: Evalulation/Treatment Occupational Therapy For: Evaluation/Treatment Speech Language Pathology For: Evaluation/Treatment DISCHARGE MEDICATIONS: Home Meds Active Scripts Insulin Glargine,Hum.rec.anlog (LANTUS) 100 Unit/1 Ml Vial, 10 UNIT SQ QHS for diabetes for 30 Days, #1 EACH Prov:JULIOCESAR MUÑOZ MD 05/02/20 Ondansetron (ZOFRAN ODT) 4 Mg Tab.rapdis, 4 MG PO BID PRN for NAUSEA/VOMITING, #10 TAB Prov:JASWINDER DOMINGUEZ DO 06/26/17 Reported Medications Losartan Potassium (COZAAR ) 25 Mg Tablet, 25 MG PO DAILY for HYPERTENSION, TAB 04/28/20 Escitalopram Oxalate (ESCITALOPRAM OXALATE) 10 Mg Tablet, 10 MG PO DAILY for ANTI-DEPRESSANT, #30 TAB 0 Refills 04/28/20 Hydrocodone Bit/Acetaminophen (HYDROCODONE-APAP 5-325 ) 1 Tab Tablet, 1 TAB PO PRN Q4HRS PRN for PAIN, TAB 0 Refills 04/28/20 Baclofen (BACLOFEN) 10 Mg Tablet, 5 MG PO TID for MUSCLE RELAXER, #30 TAB 0 Refills 04/28/20 Warfarin Sodium (WARFARIN SODIUM) 4 Mg Tablet, 4 MG PO HS for dvt, #30 TAB 04/28/20 Nystatin (NYSTATIN) 15 Gm Powder, 1 BERTHA TP BID for 7 Days, #1 BOTTLE 0 Refills apply to affected area(s) 04/28/20 Insulin Aspart (NOVOLOG) 100 Unit/1 Ml Vial, 12 UNIT SQ TIDWMEALS, VIAL 04/28/20 Melatonin (MELATONIN) 3 Mg Tablet, 1 TAB PO QHS, #30 TAB 2 Refills 04/28/20 Psyllium Husk (METAMUCIL) 0.52 Gm Capsule, 1 CAP PO HS PRN for bowel program for 30 Days, #30 CAP 0 Refills 01/10/20 Temazepam (TEMAZEPAM) 15 Mg Capsule, 1 CAP PO QHS for insomia, #30 CAP 1 Refill 12/16/19 Verapamil Hcl (VERAPAMIL HCL) 80 Mg Tablet, 2 TAB PO DAILY for htn, TAB hold for SBP <100 12/16/19 Acetaminophen (ACETAMINOPHEN) 500 Mg Tablet, 1 TAB PO BID PRN for PAIN, #60 TAB 1 Refill 08/26/18 Folic Acid/Vit Bcomp,C (Renal Vitamin Tablet) 0.8 Mg Tablet, 0.8 MG PO DAILY 05/22/16 Discontinued Reported Medications Insulin Glargine,Hum.rec.anlog (LANTUS SOLOSTAR) 100 Unit/1 Ml Insuln.pen, 35 UNIT SQ BID for diabetes, SYR 04/28/20 JULIOCESAR MUÑOZ MD May 02, 2020 14:56
[2020-05-02 15:00] VITALS: BP 105/53
--- NOTE | 2020-05-02 16:38 | PDOC3 ---
Discharge Summary Visit Information Date of Admission: Apr 28, 2020 Date of Discharge: May 02, 2020 Admitting Diagnosis Comment: Acute abdominal pain due to mesenteric adenitis and retroperitoneal lymphadenopathy Large ventral hernias Acute volume overload Acute electrolyte derangementhyponatremia and hypochloremia Severe protein malnutrition ESRD on HD Coagulopathy Final Diagnosis Problems Medical Problems: (1) Anasarca Status: Acute (2) ESRD on hemodialysis Status: Acute (3) Hyponatremia Status: Acute (4) Intractable abdominal pain Status: Acute (5) Subtherapeutic international normalized ratio (INR) Status: Acute Brief Hospital Course Allergies Allergies Coded Allergies Type Severity Reaction Last Updated Verified No Known Drug Allergies 09/27/19 No Vital Signs Vital Signs Date Time Temp Pulse Resp B/P (MAP) Pulse Ox O2 Delivery O2 Flow Rate FiO2 05/02/20 12:07 78 181/61 05/02/20 11:00 97.9 16 97 Room Air 97.9 05/02/20 07:00 2.0 Lab Results Laboratory Tests Test 04/30/20 20:37 05/01/20 07:49 05/01/20 08:12 05/01/20 11:17 Glucose (Fingerstick) 133 mg/dL (70-99) 63 mg/dL (70-99) 103 mg/dL (70-99) 91 mg/dL (70-99) Test 05/01/20 15:57 05/01/20 21:29 05/02/20 07:35 05/02/20 08:16 Glucose (Fingerstick) 93 mg/dL (70-99) 151 mg/dL (70-99) 147 mg/dL (70-99) Prothrombin Time 30.8 SEC (11.7-14.0) Prothromb Time International Ratio 2.9 (0.8-1.1) Sodium Level 128 mmol/L (136-145) Potassium Level 4.6 mmol/L (3.5-5.1) Chloride Level 92 mmol/L (98-107) Carbon Dioxide Level 28 mmol/L (21-32) Anion Gap 8 (6-14) Blood Urea Nitrogen 45 mg/dL (8-26) Creatinine 6.9 mg/dL (0.7-1.3) Estimated GFR (Cockcroft-Gault) 8.1 Glucose Level 127 mg/dL (70-99) Calcium Level 9.5 mg/dL (8.5-10.1) Test 05/02/20 11:05 Glucose (Fingerstick) 89 mg/dL (70-99) Laboratory Tests Test 05/01/20 21:29 05/02/20 07:35 05/02/20 08:16 05/02/20 11:05 Glucose (Fingerstick) 151 mg/dL (70-99) 147 mg/dL (70-99) 89 mg/dL (70-99) Prothrombin Time 30.8 SEC (11.7-14.0) Prothromb Time International Ratio 2.9 (0.8-1.1) Sodium Level 128 mmol/L (136-145) Potassium Level 4.6 mmol/L (3.5-5.1) Chloride Level 92 mmol/L (98-107) Carbon Dioxide Level 28 mmol/L (21-32) Anion Gap 8 (6-14) Blood Urea Nitrogen 45 mg/dL (8-26) Creatinine 6.9 mg/dL (0.7-1.3) Estimated GFR (Cockcroft-Gault) 8.1 Glucose Level 127 mg/dL (70-99) Calcium Level 9.5 mg/dL (8.5-10.1) Brief Hospital Course HPI: 64-year-old male presents via EMS from retirement with report of right-sided abdominal discomfort that occurred approximately 4 hours prior to arrival. Patient reports "I think I have appendicitis ". Patient was given hydrocodone by nursing staff at [facility] at approximately 0125 but the pain continued to be present and therefore decision to present patient to the ER for further evaluation. Patient denies known exposure to COVID-19. Reports was tested for COVID-19 on Thursday which was negative. Denies trauma. Denies fever or chills. Patient does report prior history of colectomy. Patient also reports past medical history of end-stage renal disease on hemodialysis Thursday/Thursday/Thursday. Patient reports he was post to have dialysis on secondary to the holiday but was unable to get it scheduled. Patient therefore is currently scheduled for a Thursday dialysis session. 04/29/2020 Patient seen and examined He got dialysis He came from [facility] His is present and has good support for her He states [place] is not doing much Discussed with RN Chart reviewed 04/30/2020 No acute events reported overnight seems stable no complains during my visit intermittent pain, no peritoneal signs. 05/01/2020 CM looking for another facility since he does not want to be at [facility] CEA still pending had dialysis today no complaints during my visit. 05/02/2020 Patient certainly is not a optimal surgical candidate in our applications sales consultant recommended a conservative approach. CEA was normal and this was informed to the patient that our suspicion for malignancy is quite low. No needs or further intervention was deemed necessary and he will be discharged after his dialysis session today to a new nursing home facility that hopefully will allow him to work on being more independent and transition finally home. Physical Exam General: Alert, Oriented X3, Cooperative Heart: Regular rate, Normal S1, Normal S2 Lungs: Clear, Crackles Abdomen: Soft, No tenderness Extremities: Other (chronic LE skin changes ) Assessment Assessment Images CT ABD/PELVIS IMPRESSION: 1. Small bilateral pleural effusions with adjacent compressive atelectasis. Mild pulmonary vascular congestion may be seen with congestive heart failure. 2. Retroperitoneal and pelvic lymphadenopathy, as detailed above. Findings have progressed. Findings may be reactive, however, lymphoproliferative disorder such as lymphoma cannot be excluded. 3. There is new hazy attenuation within the root of small bowel mesentery which may represent mesenteric adenitis. Findings are not centered along a specific vessel. Thrombophlebitis could have similar appearance. Contrast-enhanced examination could be of benefit. 4. There are 2 left ventral abdominal wall hernias containing nondilated small bowel and large bowel. No bowel obstruction or inflammation. 5. There is diffuse subcutaneous edema along the flanks which may reflect anasarca. Small volume abdominal ascites. 6. Limited evaluation of the upper abdomen secondary to significant motion artifact. 7. Appendix is not definitively visualized. Discharge Information Condition at Discharge: Improved Follow Up: Weeks Disposition/Orders: D/C to Home Scheduled Baclofen (Baclofen) 10 Mg Tablet, 5 MG PO TID for MUSCLE RELAXER, #30 Ref 0 (Reported) Entered as Reported by: FATUMA HENDRICKS on 04/28/20 1416 Last Action: Continued on 04/28/20 1633 by EDER NAJERA MD Escitalopram Oxalate (Escitalopram Oxalate) 10 Mg Tablet, 10 MG PO DAILY for ANTI-DEPRESSANT, #30 Ref 0 (Reported) Entered as Reported by: FATUMA HENDRICKS on 04/28/201415 Last Action: Converted on 04/28/201632 by EDER NAJERA MD Folic Acid/Vit Bcomp,C (Renal Vitamin Tablet) 0.8 Mg Tablet, 0.8 MG PO DAILY, (Reported) Entered as Reported by: HOANG AGUIRRE on 05/22/16 0800 Last Action: Reviewed on 04/28/201411 by FATUMA HENDIRCKS Insulin Aspart (Novolog) 100 Unit/1 Ml Vial, 12 UNIT SQ TIDWMEALS, (Reported) Entered as Reported by: ENRIQUE GRADY on 04/28/20905 Last Action: Converted on 04/28/201632 by EDER NAJERA MD Insulin Glargine,Hum.rec.anlog (Lantus) 100 Unit/1 Ml Vial, 10 UNIT SQ QHS for diabetes for 30 Days, #1 Prescribed by: JULIOCESAR MUÑOZ MD on 05/02/20 1455 Losartan Potassium (Cozaar ) 25 Mg Tablet, 25 MG PO DAILY for HYPERTENSION, (Reported) Entered as Reported by: FATUMA HENDRICKS on 04/28/201415 Last Action: Continued on 04/28/201632 by EDER NAJERA MD Melatonin (Melatonin) 3 Mg Tablet, 1 TAB PO QHS, #30 Ref 2 (Reported) Entered as Reported by: ENRIQUE GRADY on 04/28/20905 Last Action: Converted on 04/28/201632 by EDER NAJERA MD Nystatin (Nystatin) 15 Gm Powder, 1 BERTHA TP BID for 7 Days, #1 Ref 0 (Reported) apply to affected area(s) Entered as Reported by: ENRIQUE GRADY on 04/28/20905 Last Action: Continued on 04/28/201632 by EDER NAJERA MD Temazepam (Temazepam) 15 Mg Capsule, 1 CAP PO QHS for insomia, #30 Ref 1 (Reported) Entered as Reported by: BALTA BENITO on 12/16/19 113 Last Action: Continued on 04/28/201632 by EDER NAJERA MD Verapamil Hcl (Verapamil Hcl) 80 Mg Tablet, 2 TAB PO DAILY for htn, (Reported) hold for SBP <100 Entered as Reported by: BALTA BENITO on 12/16/19 1134 Last Action: Converted on 04/28/201632 by EDER NAJERA MD Warfarin Sodium (Warfarin Sodium) 4 Mg Tablet, 4 MG PO HS for dvt, #30 (Reported) Entered as Reported by: FATUMA HENDRICKS on 04/28/201411 Last Action: Continued on 04/28/201632 by EDER NAJERA MD Scheduled PRN Acetaminophen (Acetaminophen) 500 Mg Tablet, 1 TAB PO BID PRN for PAIN, #60 Ref 1 (Reported) Entered as Reported by: ANJEL UW on 08/26/18328 Last Action: Reviewed on 04/28/201411 by FATUMA HENDRICKS Hydrocodone Bit/Acetaminophen (Hydrocodone-Apap 5-325 ) 1 Tab Tablet, 1 TAB PO PRN Q4HRS PRN for PAIN, Ref 0 (Reported) Entered as Reported by: FATUMA HENDRICKS on 04/28/201415 Last Action: Continued on 04/28/201632 by EDER NAJERA MD Ondansetron (Zofran Odt) 4 Mg Tab.rapdis, 4 MG PO BID PRN for NAUSEA/VOMITING, #10 Prescribed by: JASWINDER DOMINGUEZ on 06/26/171851 Last Action: Reviewed on 04/28/201411 by FATUMA HENDRICKS Psyllium Husk (Metamucil) 0.52 Gm Capsule, 1 CAP PO HS PRN for bowel program for 30 Days, #30 Ref 0 (Reported) Entered as Reported by: IRON GARCIA on 01/10/202125 Last Action: Reviewed on 04/28/201411 by FATUMA HENDRICKS Discontinued Medications Insulin Glargine,Hum.rec.anlog (Lantus Solostar) 100 Unit/1 Ml Insuln.pen, 35 UNIT SQ BID for diabetes, (Reported) Entered as Reported by: FATUMA HENDRICKS on 04/28/201415 Last Action: Converted on 04/28/201632 by EDER NAJERA MD Justicifation of Admission Dx: Justifications for Admission: Justification of Admission Dx: Yes Chronic Renal Failure: Hypertension Cellulitis: Cellulitis JULIOCESAR MUÑOZ MD May 02, 2020 16:38
[2020-05-02 19:00] VITALS: BP 160/77
[2020-05-02] MEDS: TEMAZEPAM 15 MG CAPSULE PO SCH (20:45)
[2020-05-02] MEDS: WARFARIN 4 MG TABLET. PO SCH (20:45)
[2020-05-02] MEDS: INSULIN GLARGINE SYRINGE. SQ SCH (20:50)
[2020-05-02 23:00] VITALS: BP 180/83
[2020-05-03 03:00] VITALS: BP 162/78
[2020-05-03 07:00] VITALS: BP 175/79
[2020-05-03] MEDS: INSULIN LISPRO 300 UNITS/3 ML VIAL. SQ SCH ×2 (08:00)
[2020-05-03] MEDS: VITS A & D/LANOLIN TOPICAL OINTMENT 42GM TUBE. TP SCH (08:16)
[2020-05-03] MEDS: NYSTATIN TOPICAL POWDER 15GM BOTTLE. TP SCH (08:16)
[2020-05-03] MEDS: CITALOPRAM 20 MG TABLET. PO SCH (08:17)
[2020-05-03] MEDS: VERAPAMIL 40 MG TABLET. PO SCH (08:17)
[2020-05-03] MEDS: BACLOFEN 10 MG TABLET. PO SCH ×2 (08:17→13:14)
[2020-05-03] MEDS: LOSARTAN POTASSIUM 25 MG TABLET. PO SCH (08:17)
[2020-05-03 11:00] VITALS: BP 133/82
--- NOTE | 2020-05-03 11:05 | PDOC ---
Date of Service: DATE: 05/03/20 TIME: 10:59 Objective: Objective: 1 stool charted. Vital Signs: Vital Signs Date Time Temp Pulse Resp B/P (MAP) Pulse Ox O2 Delivery O2 Flow Rate FiO2 05/03/20 08:17 83 175/79 05/03/20 08:00 Room Air 05/03/20 07:00 97.9 16 95 97.9 05/02/20 15:00 2.0 Labs: Laboratory Tests Test 05/02/20 11:05 05/02/20 17:08 05/02/20 20:21 05/03/20 07:59 Glucose (Fingerstick) 89 mg/dL 197 mg/dL 195 mg/dL 119 mg/dL PE: GEN: NAD - watching tv - in recliner - breakfast 100% consumed LUNGS: CTAB HEART: RRR ABD: obese, soft NEURO/PSYCH: A & O 3 A/P: Diarrhea - slowed - C Diff negative Anemia Abnormal CT - retroperitoneal and pelvic lymphadenopathy, mesenteric adenitis vs thrombophlebitis, left ventral abdominal wall hernias containing small and large bowel H/o colon cancer s/p resection -- CEA normal. INR 2.9 on Coumadin. ?FFP for biopsy? Justicifation of Admission Dx: Justifications for Admission: Justification of Admission Dx: Yes Chronic Renal Failure: Hypertension Cellulitis: Cellulitis TOMASZ BARTHOLOMEW May 03, 2020 11:04
[2020-05-03] MEDS ORDERED: INSULIN GLARGINE SYRINGE. SQ SCH (12:00)
--- NOTE | 2020-05-03 12:11 | PDOC ---
DATE OF SERVICE DATE: 05/03/20 TIME: 12:10 SUBJECTIVE ROS stable OBJECTIVE Vital Signs Vital Signs Date Time Temp Pulse Resp B/P (MAP) Pulse Ox O2 Delivery O2 Flow Rate FiO2 05/03/20 08:17 83 175/79 05/03/20 08:00 Room Air 05/03/20 07:00 97.9 16 95 97.9 05/02/20 15:00 2.0 I & 0 Intake and Output 05/03/20 07:00 Intake Total 1220 ml Balance 1220 ml Intake Oral 1220 ml # Voids 1 # Bowel Movements 1 PHYSICAL EXAM Physical Exam General Appearance: no apparent distress Skin: warm Heart: S1S2 Abdomen: soft, bowel sounds present Extremities: pulses present Neurology: alert DIAGNOSIS/ASSESSMENT Assessment & Plan ESRD - [place] [facility] [place] [facility] [place] indication for [place] today HTN: antihypertensives Abd pain - resolved Diarrhea -C Diff negative Abnormal CT - retroperitoneal and pelvic lymphadenopathy, mesenteric adenitis vs thrombophlebitis, left ventral abdominal wall hernias containing small and large bowel H/o colon cancer s/p resection-CEA pending, will follow. Non Compliance COMMENT/RELEVANT DATA Meds Current Medications Medications (Trade) Dose Ordered Sig/Cristian Start Time Stop Time Status Last Admin Dose Admin Acetaminophen (Tylenol) 650 mg PRN Q4HRS PRN 04/28/20 12:30 04/30/20 19:02 650 MG Acetaminophen/ Hydrocodone Bitart (Lortab 5/325) 1 tab PRN Q4HRS PRN 04/28/20 16:45 04/29/20 19:19 1 TAB Albumin Human 200 ml @ 200 mls/hr 1X PRN PRN 05/02/20 07:30 05/02/20 13:29 DC Baclofen (Lioresal) 5 mg TID 04/28/20 21:00 05/03/20 08:17 5 MG Citalopram Hydrobromide (CeleXA) 20 mg DAILY 04/29/20 09:00 05/03/20 08:17 20 MG Dextrose 250 ml @ As Directed STK-MED ONCE 04/30/20 08:25 04/30/20 08:25 DC Dextrose (Dextrose 50%-Water Syringe) 12.5 gm PRN Q15MIN PRN 04/28/20 12:30 04/30/20 08:26 25 GM Docusate Sodium (Colace) 100 mg PRN DAILY PRN 04/28/20 12:30 Famotidine (Pepcid Vial) 20 mg 1X ONCE 04/28/20 03:30 04/28/20 03:31 DC 04/28/20 03:18 20 MG Fentanyl Citrate (Fentanyl 2ml Vial) 50 mcg PRN Q2HRS PRN 04/28/20 05:15 04/28/20 23:00 DC 04/28/20 22:15 50 MCG Hydralazine HCl (Apresoline Inj) 20 mg 1X ONCE 04/28/20 07:00 04/28/20 07:01 DC 04/28/20 08:10 20 MG Info (PHARMACY MONITORING -- do not chart) 1 each PRN DAILY PRN 05/02/20 09:45 Insulin Glargine (Lantus Syringe) 7 unit BID 05/03/20 12:00 Insulin Human Lispro (HumaLOG) 12 units TIDWMEALS 04/28/20 18:00 05/03/20 11:01 DC 04/30/20 19:07 12 UNITS Labetalol HCl (Normodyne Iv Push) 10 mg PRN Q2HR PRN 04/28/20 16:45 Lidocaine/ Prilocaine (Emla) 1 jamila 3X/WEEK PRN 04/28/20 11:30 Losartan Potassium (Cozaar) 25 mg DAILY 04/29/20 09:00 05/03/20 08:17 25 MG Morphine Sulfate (Morphine Sulfate) 2 mg PRN Q2HR PRN 04/28/20 04:00 04/29/20 04:00 DC Non-Formulary Medication (Melatonin ) 1 tab QHS 04/28/20 21:00 UNV Nystatin (Nystop) 1 jamila BID 04/28/20 21:00 05/03/20 08:16 1 JAMILA Ondansetron HCl (Zofran) 4 mg PRN Q6HRS PRN 04/28/20 12:30 04/29/20 05:55 4 MG Sennosides (Senna) 17.2 mg PRN BID PRN 04/28/20 12:30 Sodium Chloride 1,000 ml @ 400 mls/hr Q2H30M PRN 05/02/20 07:30 05/02/20 19:29 DC Temazepam (Restoril) 15 mg QHS 04/28/20 21:00 05/02/20 20:45 15 MG Verapamil HCl (Calan) 160 mg DAILY 04/29/20 09:00 05/03/20 08:17 160 MG Vitamin A/Vitamin D (Vitamin A & D Ointment) 1 jamila BID 04/30/20 21:00 05/03/20 08:16 1 JAMILA Warfarin Sodium (Coumadin Per Physician) 1 each PRN DAILY PRN 04/28/20 17:00 05/02/20 14:57 1 EACH Warfarin Sodium (Coumadin) 4 mg QHS 04/28/20 21:00 05/02/20 20:45 4 MG Lab Laboratory Tests Test 05/02/20 17:08 05/02/20 20:21 05/03/20 07:59 Glucose (Fingerstick) 197 mg/dL (70-99) 195 mg/dL (70-99) 119 mg/dL (70-99) Results All relevant outside records, renal labs, imaging studies, telemetry/EKG's were reviewed. Justicifation of Admission Dx: Justifications for Admission: Justification of Admission Dx: Yes Chronic Renal Failure: Hypertension Cellulitis: Cellulitis ANABEL GARSIA MD May 03, 2020 12:11
[2020-05-03] MEDS ORDERED: INSU100V8 SQ (16:17)
--- NOTE | 2020-05-03 16:21 | PDOC3 ---
Discharge Summary Visit Information Date of Admission: Apr 28, 2020 Date of Discharge: May 02, 2020 Admitting Diagnosis Comment: Acute abdominal pain due to mesenteric adenitis and retroperitoneal lymphadenopathy Large ventral hernias Acute volume overload Acute electrolyte derangementhyponatremia and hypochloremia Severe protein malnutrition ESRD on HD Coagulopathy Final Diagnosis Problems Medical Problems: (1) Anasarca Status: Acute (2) ESRD on hemodialysis Status: Acute (3) Hyponatremia Status: Acute (4) Intractable abdominal pain Status: Acute (5) Subtherapeutic international normalized ratio (INR) Status: Acute Acute abdominal pain due to mesenteric adenitis and retroperitoneal lymphadenopathy Large ventral hernias Acute volume overload Acute electrolyte derangementhyponatremia and hypochloremia Severe protein malnutrition ESRD on HD Coagulopathy warfarin induced with INR in therapeutic range Brief Hospital Course Allergies Allergies Coded Allergies Type Severity Reaction Last Updated Verified No Known Drug Allergies 09/27/19 No Vital Signs Vital Signs Date Time Temp Pulse Resp B/P (MAP) Pulse Ox O2 Delivery O2 Flow Rate FiO2 05/03/20 11:00 98.0 70 20 133/82 (99) 95 Room Air 98.0 05/02/20 15:00 2.0 Lab Results Laboratory Tests Test 05/01/20 21:29 05/02/20 07:35 05/02/20 08:16 05/02/20 11:05 Glucose (Fingerstick) 151 mg/dL (70-99) 147 mg/dL (70-99) 89 mg/dL (70-99) Prothrombin Time 30.8 SEC (11.7-14.0) Prothromb Time International Ratio 2.9 (0.8-1.1) Sodium Level 128 mmol/L (136-145) Potassium Level 4.6 mmol/L (3.5-5.1) Chloride Level 92 mmol/L (98-107) Carbon Dioxide Level 28 mmol/L (21-32) Anion Gap 8 (6-14) Blood Urea Nitrogen 45 mg/dL (8-26) Creatinine 6.9 mg/dL (0.7-1.3) Estimated GFR (Cockcroft-Gault) 8.1 Glucose Level 127 mg/dL (70-99) Calcium Level 9.5 mg/dL (8.5-10.1) Test 05/02/20 17:08 05/02/20 20:21 05/03/20 07:59 05/03/20 11:43 Glucose (Fingerstick) 197 mg/dL (70-99) 195 mg/dL (70-99) 119 mg/dL (70-99) 123 mg/dL (70-99) Laboratory Tests Test 05/02/20 17:08 05/02/20 20:21 05/03/20 07:59 05/03/20 11:43 Glucose (Fingerstick) 197 mg/dL (70-99) 195 mg/dL (70-99) 119 mg/dL (70-99) 123 mg/dL (70-99) Brief Hospital Course 64-year-old male presents via EMS from assisted with report of right-sided abdominal discomfort that occurred approximately 4 hours prior to arrival. Patient reports "I think I have appendicitis ". Patient was given hydrocodone by nursing staff at [facility] at approximately 0125 but the pain continued to be present and therefore decision to present patient to the ER for further evaluation. Patient denies known exposure to COVID-19. Reports was tested for COVID-19 on Thursday which was negative. Denies trauma. Denies fever or chills. Patient does report prior history of colectomy. Patient also reports past medical history of end-stage renal disease on hemodialysis Thursday/Thursday/Thursday. Patient reports he was post to have dialysis on secondary to the holiday but was unable to get it scheduled. Patient therefore is currently scheduled for a Thursday dialysis session. 04/29/2020 Patient seen and examined He got dialysis He came from [facility] His is present and has good support for her He states [place] is not doing much Discussed with RN Chart reviewed 04/30/2020 No acute events reported overnight seems stable no complains during my visit intermittent pain, no peritoneal signs. 05/01/2020 CM looking for another facility since he does not want to be at [facility] CEA still pending had dialysis today no complaints during my visit. 05/02/2020 Patient certainly is not a optimal surgical candidate in our regional vice president surgical sales recommended a conservative approach. CEA was normal and this was informed to the patient that our suspicion for malignancy is quite low. No needs or further intervention was deemed necessary and he will be discharged after his dialysis session today to a new retirement facility that hopefully will allow him to work on being more independent and transition finally home. Physical Exam General: Alert, Oriented X3, Cooperative Heart: Regular rate, Normal S1, Normal S2 Lungs: Clear, Crackles Abdomen: Soft, No tenderness Extremities: Other (chronic LE skin changes ) Assessment Assessment CT ABD/PELVIS IMPRESSION: 1. Small bilateral pleural effusions with adjacent compressive atelectasis. Mild pulmonary vascular congestion may be seen with congestive heart failure. 2. Retroperitoneal and pelvic lymphadenopathy, as detailed above. Findings have progressed. Findings may be reactive, however, lymphoproliferative disorder such as lymphoma cannot be excluded. 3. There is new hazy attenuation within the root of small bowel mesentery which may represent mesenteric adenitis. Findings are not centered along a specific vessel. Thrombophlebitis could have similar appearance. Contrast-enhanced examination could be of benefit. 4. There are 2 left ventral abdominal wall hernias containing nondilated small bowel and large bowel. No bowel obstruction or inflammation. 5. There is diffuse subcutaneous edema along the flanks which may reflect anasarca. Small volume abdominal ascites. 6. Limited evaluation of the upper abdomen secondary to significant motion artifact. 7. Appendix is not definitively visualized. Discharge Information Condition at Discharge: Improved Follow Up: Weeks Disposition/Orders: D/C to Another Facility Scheduled Baclofen (Baclofen) 10 Mg Tablet, 5 MG PO TID for MUSCLE RELAXER, #30 Ref 0 (R eported) Entered as Reported by: FATUMA HENDRICKS on 04/28/201415 Last Action: Continued on 04/28/201632 by EDER NAJERA MD Escitalopram Oxalate (Escitalopram Oxalate) 10 Mg Tablet, 10 MG PO DAILY for ANTI-DEPRESSANT, #30 Ref 0 (Reported) Entered as Reported by: FATUMA HENDRICKS on 04/28/201415 Last Action: Converted on 04/28/201632 by EDER NAJERA MD Folic Acid/Vit Bcomp,C (Renal Vitamin Tablet) 0.8 Mg Tablet, 0.8 MG PO DAILY, (Reported) Entered as Reported by: HOANG AGUIRRE on 05/22/16 0800 Last Action: Reviewed on 04/28/201411 by FATUMA HENDRICKS Insulin Glargine,Hum.rec.anlog (Lantus) 100 Unit/1 Ml Vial, 10 UNIT SQ QHS for diabetes for 30 Days, #1 Prescribed by: JULIOCESAR MUÑOZ MD on 05/02/20 1455 Insulin Glargine,Hum.rec.anlog (Lantus) 100 Unit/1 Ml Vial, 7 UNIT SQ BID for dm type 2 insulin requiring for 30 Days, #30 Prescribed by: JULIOCESAR MUÑOZ MD on 05/03/20 1617 Losartan Potassium (Cozaar ) 25 Mg Tablet, 25 MG PO DAILY for HYPERTENSION, (Reported) Entered as Reported by: FATUMA HENDRICKS on 04/28/201415 Last Action: Continued on 04/28/201632 by EEDR NAJERA MD Melatonin (Melatonin) 3 Mg Tablet, 1 TAB PO QHS, #30 Ref 2 (Reported) Entered as Reported by: ENRIQUE GRADY on 04/28/20905 Last Action: Converted on 04/28/201632 by EDER NAJERA MD Nystatin (Nystatin) 15 Gm Powder, 1 BERTHA TP BID for 7 Days, #1 Ref 0 (Reported) apply to affected area(s) Entered as Reported by: ENRIQUE GRADY on 04/28/20905 Last Action: Continued on 04/28/201632 by EDER NAJERA MD Temazepam (Temazepam) 15 Mg Capsule, 1 CAP PO QHS for insomia, #30 Ref 1 (Reported) Entered as Reported by: BALTA BENITO on 12/16/19 113 Last Action: Continued on 04/28/201632 by EDER NAJERA MD Verapamil Hcl (Verapamil Hcl) 80 Mg Tablet, 2 TAB PO DAILY for htn, (Reported) hold for SBP <100 Entered as Reported by: BALTA BENITO on 12/16/19 113 Last Action: Converted on 04/28/201632 by EDER NAJERA MD Warfarin Sodium (Warfarin Sodium) 4 Mg Tablet, 4 MG PO HS for dvt, #30 (Reported) Entered as Reported by: FATUMA HENDRICKS on 04/28/201411 Last Action: Continued on 04/28/201632 by EDER NAJERA MD Scheduled PRN Acetaminophen (Acetaminophen) 500 Mg Tablet, 1 TAB PO BID PRN for PAIN, #60 Ref 1 (Reported) Entered as Reported by: ANJEL WU on 08/26/18 0329 Last Action: Reviewed on 04/28/201411 by FATUMA HENDRICKS Hydrocodone Bit/Acetaminophen (Hydrocodone-Apap 5-325 ) 1 Tab Tablet, 1 TAB PO PRN Q4HRS PRN for PAIN, Ref 0 (Reported) Entered as Reported by: FATUMA HENDRICKS on 04/28/201415 Last Action: Continued on 04/28/201632 by EDER NAJERA MD Ondansetron (Zofran Odt) 4 Mg Tab.rapdis, 4 MG PO BID PRN for NAUSEA/VOMITING, #10 Prescribed by: JASWINDER DOMINGUEZ on 06/26/171851 Last Action: Reviewed on 04/28/201411 by FATUMA HENDRICKS Psyllium Husk (Metamucil) 0.52 Gm Capsule, 1 CAP PO HS PRN for bowel program for 30 Days, #30 Ref 0 (Reported) Entered as Reported by: IRON GARCIA on 01/10/202125 Last Action: Reviewed on 04/28/201411 by FATUMA HENDRICKS Discontinued Medications Insulin Aspart (Novolog) 100 Unit/1 Ml Vial, 12 UNIT SQ TIDWMEALS, (Reported) Entered as Reported by: ENRIQUE GRADY on 04/28/20905 Last Action: Converted on 04/28/201632 by EDER NAJERA MD Insulin Glargine,Hum.rec.anlog (Lantus Solostar) 100 Unit/1 Ml Insuln.pen, 35 UNIT SQ BID for diabetes, (Reported) Entered as Reported by: FATUMA HENDRICKS on 04/28/201415 Last Action: Converted on 04/28/201632 by EDER NAJERA MD Justicifation of Admission Dx: Justifications for Admission: Justification of Admission Dx: Yes Chronic Renal Failure: Hypertension Cellulitis: Cellulitis JULIOCESAR MUÑOZ MD May 03, 2020 16:20
--- NOTE | 2020-05-03 16:44 | NUR ---
Discharge Note: PT DISCHARGED TO [facility]. PT LEFT FACILITY VIA MEDICOACH TRANSPORT AT 1612. PT STABLE AND ALERT UPON DISCHARGE. PT PIV TO R AC REMOVED WITHOUT COMPLICATIONS, TELE MONITOR REMOVED. REPORT CALLED TO FACILITY AT 1612. EDUCATED ABOUT DISCHARGE INSTRUCTIONS, DISCHARGE MEDICATIONS, AND FOLLOW-UP CARE. FACILITY EDUCATED ABOUT INSULIN DOSES BEING CHANGED AROUND AND NOT CORRECT OF DISCHARGE INSTRUCTIONS, HUMALOG/NOVOLOG HAVE BEEN COMPLETELY DISCONTINUED, AND LANTUS /LEVEMIR IS TO BE 7 UNITS BID. NO CONCERNS VOICED AT THIS TIME. OTHER FACILITY ALSO NOTIFIED TO NOT USE THE GLUCOSE MONITOR ON THE BACK OF THE ARM DUE TO IT NOT GIVING THE CORRECT READING, TO USE FINGER STICKS INSTEAD. PT LEFT WITH ALL PERSONAL BELONGINGS. WOUNDS PHOTOGRAPHED AND REDRESSED PRIOR TO DISCHARGE. ELENITA SHEPHERD Discharge instructions and discharge home medications reviewed with Patient and a copy given. All questions have been answered and understanding verbalized.
--- NOTE | 2020-05-03 17:00 | NUR ---
SW following for discharge planning. Spoke with RN and reviewed chart. SW contacted by [facility] acute rehab and they have a bed today. Discharge orders phoned and faxed. SW confirmed orders were received. Packet of clinicals ready to be sent with pt. RN to call report. Facility arranged 1600 wc transport with 02. Pt notified. No further SW needs at this time.
== END 2020-05-03 16:12 | DRG 393 ==
LOC: ER 02:40 → ED HOLD 06:20 → 5 NORTH 13:30
PROVIDERS: ADMIT Internal Medicine; ATTEND Internal Medicine
PROC: 5A1D70Z Performance of Urinary Filtration, Intermittent, Less than 6 Hours Per Day (ICD-10-PCS; 2020-04-28)
PROC: 5A1D70Z Performance of Urinary Filtration, Intermittent, Less than 6 Hours Per Day (ICD-10-PCS; 2020-04-30)
PROC: 5A1D70Z Performance of Urinary Filtration, Intermittent, Less than 6 Hours Per Day (ICD-10-PCS; principal; 2020-05-02)
DX: I88.0 Nonspecific mesenteric lymphadenitis (principal); N18.6 End stage renal disease; E43 Unspecified severe protein-calorie malnutrition; I12.0 Hypertensive chronic kidney disease with stage 5 chronic kidney disease or end stage renal disease; R18.8 Other ascites; L03.90 Cellulitis, unspecified; E87.1 Hypo-osmolality and hyponatremia; N17.9 Acute kidney failure, unspecified; D68.9 Coagulation defect, unspecified; Z68.41 Body mass index [BMI] 40.0-44.9, adult; J98.11 Atelectasis; Z86.718 Personal history of other venous thrombosis and embolism; Z99.2 Dependence on renal dialysis; E11.22 Type 2 diabetes mellitus with diabetic chronic kidney disease; D50.9 Iron deficiency anemia, unspecified; E11.40 Type 2 diabetes mellitus with diabetic neuropathy, unspecified; E78.00 Pure hypercholesterolemia, unspecified; E78.5 Hyperlipidemia, unspecified; E87.70 Fluid overload, unspecified; E87.8 Other disorders of electrolyte and fluid balance, not elsewhere classified; J44.9 Chronic obstructive pulmonary disease, unspecified; K43.9 Ventral hernia without obstruction or gangrene; K52.9 Noninfective gastroenteritis and colitis, unspecified; Z79.01 Long term (current) use of anticoagulants; Z82.49 Family history of ischemic heart disease and other diseases of the circulatory system; Z83.3 Family history of diabetes mellitus; Z85.038 Personal history of other malignant neoplasm of large intestine; Z87.891 Personal history of nicotine dependence; Z90.49 Acquired absence of other specified parts of digestive tract; E21.3 Hyperparathyroidism, unspecified; F32.9 Major depressive disorder, single episode, unspecified; Z20.828 Contact with and (suspected) exposure to other viral communicable diseases
CPT/HCPCS: 36415; 74176; 80048; 80053; 82378; 82553; 82947; 82962; 83605; 83690; 83735; 84100; 84484; 85025; 85610; 87493; 93005; 96361; 96374; 96375; 96376; 99285; J0360; J1815; J2405; J3010; J3490; J7040; 97530-GO; 97530-GP; 97535-GO; G0378

== ENCOUNTER 2020-06-01 11:18 | Emergency (ER) | payer MEDICARE, OTHER ==
[~2020-06-01] VITALS: Ht 182.9 cm; Wt 150.0 kg
[~2020-06-01 11:18] MED LIST changes: +ESCITALOPRAM OX10 MG PO; +INSU100V31 SQ; +INSU100V8 SQ; +LOSA25TA PO; +MELA3TAB4 PO; +NYST15PO9 TP; +WARF4TAB64 PO
--- NOTE | 2020-06-01 11:39 | PHYS DOC ---
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 He states it is intermittent but has been going on for last several months. He was last admitted on April 28, 2020 for intractable abdominal pain. Patient states he also does not know when his last bowel movement was. He does have a couple of abdominal hernias of which he stated that he saw a GI doctor for last month and they stated that they cannot do anything for him. Patient rates his pain a 9 out of 10 and denies radiation. He states that he wants something stronger than Tylenol for his pain. He states Tylenol does not work. Patient also states that he is feeling short of breath but denies any chest pain. Patient has a history of sepsis, anemia, colon cancer, colon resection, CHF, diabetes, hypertension, end-stage renal disease, rhabdo, cellulitis, DVT, PE, neuropathy, COPD. Patient denies chest pain, nausea, vomiting, fever, cough, back pain, dizziness, headache, focal weakness, palpitations, diarrhea, blood in his stools. (KRISTINA MARTIN RELIABILITY MANAGER) Review of Systems: Review of Systems: Constitutional: Denies fever or chills. [] Eyes: Denies change in visual acuity. [] HENT: Denies nasal congestion or sore throat. [] Respiratory: Denies cough. +shortness of breath. [] Cardiovascular: Denies chest pain or edema. [] GI: + Left upper quadrant abdominal pain, denies nausea, vomiting, bloody stools or diarrhea. [] : Denies dysuria. [] Musculoskeletal: Denies back pain or joint pain. [] Integument: Denies rash. [] Neurologic: Denies headache, focal weakness or sensory changes. [] Endocrine: Denies polyuria or polydipsia. [] Lymphatic: Denies swollen glands. [] Psychiatric: Denies depression or anxiety. [] (KRISTINA MARTIN APRN) Heart Score: Risk Factors: Risk Factors: DM, Current or recent (<one month) smoker, HTN, HLP, family history of CAD, obesity. Risk Scores: Score 0 - 3: 2.5% MACE over next 6 weeks - Discharge Home Score 4 - 6: 20.3% MACE over next 6 weeks - Admit for Clinical Observation Score 7 - 10: 72.7% MACE over next 6 weeks - Early Invasive Strategies (KRISTINA MARTIN APRN) Current Medications: Current Medications Medications (Trade) Dose Ordered Sig/Cristian Start Time Stop Time Status Last Admin Dose Admin Fentanyl Citrate (Fentanyl 2ml Vial) 50 mcg 1X ONCE 06/01/20 11:30 06/01/20 11:31 UNV (KRISTINA MARTIN RELIABILITY MANAGER) Allergies: Allergies: Allergies Coded Allergies Type Severity Reaction Last Updated Verified No Known Drug Allergies 09/27/19 No (KRISTINA MARTIN APRN) Physical Exam: PE: Constitutional: Well developed, well nourished, no acute distress, non-toxic appearance. [] HENT: Normocephalic, atraumatic, bilateral external ears normal, oropharynx moist, no oral exudates, nose normal. [] Eyes: PERRLA, EOMI, conjunctiva normal, no discharge. [] Neck: Normal range of motion, no tenderness, supple, no stridor. [] Cardiovascular:Heart rate regular rhythm, no murmur [] Lungs & Thorax: Bilateral upper breath sounds clear lower diminished to auscultation [] Abdomen: Bowel sounds normal, soft, left upper quadrant tenderness, no masses, no pulsatile masses. [] Skin: Warm, dry, no erythema, no rash. [] Back: No tenderness, no CVA tenderness. [] Extremities: No tenderness, no cyanosis, no clubbing, ROM intact, no edema. [] Neurologic: Alert and oriented X 3, normal motor function, normal sensory function, no focal deficits noted. [] Psychologic: Affect normal, judgement normal, mood normal. [] (KRISTINA MARTIN APRN) EKG: EK and read by Dr Palmer as Sinus Rhythm, RBBB, RVH, and no STEMI (KRISTINA MARTIN APRN) Radiology/Procedures: Radiology/Procedures: [] Impression: [facility] [address] [place] [address] IMAGING REPORT Signed PATIENT: ELENITA SHEPHERD ACCOUNT: [id number] : 1955 LOCATION: ER AGE: 64 SEX: M EXAM STATUS: PRE ER ORD. PHYSICIAN: KRISTINA MARTIN APRN REASON: LUQ pain, unknow last BM PROCEDURE: CT ABDOMEN PELVIS WO CONTRAST PQRS Compliance Statement: One or more of the following individualized dose reduction techniques were utilized for this examination: 1. Automated exposure control 2. Adjustment of the mA and/or kV according to patient size 3. Use of iterative reconstruction technique CT abdomen/pelvis without contrast 06/01/2020 11:55 AM INDICATION: Left upper quadrant pain. COMPARISON: CT abdomen/pelvis 04/28/2020 TECHNIQUE: Multiple axial CT images of the abdomen and pelvis were obtained without intravenous contrast. Coronal and sagittal reformats are provided. FINDINGS: Stable appearance of a small to moderate pleural effusion with adjacent breast atelectasis versus infiltrate. There is a trace left pleural effusion with adjacent compressive atelectasis versus infiltrate, not significant changed. Heart size within normal limits. Three-vessel coronary artery vascular calcifications are identified. Mitral annular calcifications are present. Evaluation of solid abdominal viscera is limited by lack of intravenous contrast. Liver is normal in appearance. Calcifications within the spleen likely represent sequela of prior granulomatous exposure. Adrenal glands are normal in appearance. Mild fatty atrophy of the pancreas. Gallbladder is present without adjacent inflammation. Abdominal aorta is normal in caliber. There is a left periaortic lymph node with normal fatty hilum measuring 1.5 cm (series 2, image 38). Additional subcentimeter/peritoneal lymph nodes appear stable. Aortocaval lymph node measures 6 mm, stable (series 2, image 57). IVC filter is present. Right external iliac lymph nodes are borderline enlarged measuring up to 1.5 cm (series 2, image 79). Right common femoral lymph node measures 1.9 cm (series 2, image 85). Right inguinal left and measures 1.6 cm, stable (series 2, image 91). There is a ventral abdominal hernia asymmetric to the left measuring 7.6 cm at the origin. This contains a loop of transverse colon which is nondilated. No bowel obstruction or inflammation. Appendix is not definitively visualized. No anastomosis identified in the right lower quadrant. There is atrophy of the kidneys. No hydronephrosis or suspicious renal mass. Urinary bladder is within normal limits given degree of distention. Prostate and seminal vesicles are normal. There is bilateral flank edema. No suspicious osseous abnormality is identified. IMPRESSION: IMPRESSION: 1. Stable small to moderate right pleural effusion with adjacent compressive atelectasis versus infiltrate. Trace left pleural effusion with adjacent compressive atelectasis versus infiltrate, stable. 2. Stable borderline enlarged retroperitoneal and pelvic lymph nodes. 3. Ventral abdominal hernia asymmetric to the left containing a loop of nondilated transverse colon. No bowel obstruction or inflammation. Electronically signed by: Mariluz Campos MD (06/01/2020 1:01 PM) [facility] DICTATED and SIGNED BY: MARILUZ CAMPOS MD DATE: 06/01/20 [id number] [facility] [address] [place] [address] IMAGING REPORT Signed PATIENT: ELENITA SHEPHERD ACCOUNT: [id number] : 1955 LOCATION: ER AGE: 64 SEX: M EXAM STATUS: PRE ER ORD. PHYSICIAN: KRISTINA MARTIN APRN REASON: SOA PROCEDURE: PORTABLE CHEST 1V XR CHEST 1V 06/01/2020 12:16 PM INDICATION: Shortness of air COMPARISON: 02/24/2020 TECHNIQUE: Portable frontal view of the chest is provided. FINDINGS: The cardiomediastinal silhouette is similar in appearance. Small right and trace left pleural effusion with adjacent compressive atelectasis versus infiltrate. No significant pulmonary vascular congestion or pneumothorax. Suspect a soft tissue nodule in the right upper lobe measuring 8 mm. Further evaluation with chest CT could be of benefit. No suspicious osseous abnormality. IMPRESSION: New small right pleural effusion and trace left pleural effusion with adjacent basilar atelectasis versus infiltrate. Suspect a soft tissue nodule in the right upper lobe measuring 8 mm. Further characterization with chest CT could be of benefit. Electronically signed by: Mariluz Campos MD (06/01/2020 12:49 PM) [facility] DICTATED and SIGNED BY: MARILUZ CAMPOS MD DATE: 06/01/20 [id number] (KRISTINA MARTIN APRN) Course & Med Decision Making: Course & Med Decision Making Pertinent Labs and Imaging studies reviewed. (See chart for details) See HPI. Abdomen is soft and hernia's at umbilical area are soft and nontender. Left upper abdomen is tender with palpation. Lungs are clear in upper lobes and diminished in lower lobes. Speaks in full complete sentences. Alert and oriented x4. Bilateral lower leg 2+ swelling. Blood work is unremarkable for the patient considering his medical history. CT in chest x-ray are not critical. Patient has received 2 doses of fentanyl in the ED. He is also gotten a dose of Zofran in the ED. Patient is sent home with hydrocodone. He follow-up with his primary care provider. I have had Dr. Palmer look over the patient findings and spoke with him about the care plan and he is in agreement with the care plan. [] (KRISTINA MARTIN APRN) Dragon Disclaimer: Dragon Disclaimer: This electronic medical record was generated, in whole or in part, using a voice recognition dictation system. (KRISTINA MARTIN APRN) Departure Departure Impression: Primary Impression: Chronic abdominal pain Disposition: 01 DC HOME SELF CARE/HOMELESS Condition: STABLE Referrals: HIGINIO WISE MD (PCP) Patient Instructions: Abdominal Pain (Nonspecific) Additional Instructions: Follow-up with your primary care provider soon as possible. Take the medication as it is prescribed. If you begin vomiting cannot hold down fluids return to the emergency room. Scripts Hydrocodone Bit/Acetaminophen (HYDROCODONE-APAP 5-325 ) 1 Tab Tablet 1 TAB PO PRN Q6HRS PRN for PAIN, #10 TAB 0 Refills Prov: KRISTINA MARTIN APRN 06/01/20 Attending Signature Attending Signature I have reviewed the PA/LEGAL REFEREE's note and plan of care. I was available for consult ation as needed during the patient's visit in the emergency department. I agree with the clinical impression, plan, and disposition. (KILEY PALMER DO) KRISTINA MARTIN APRN Jun 01, 2020 11:39 KILEY PALMER DO Jun 01, 2020 14:29
[2020-06-01] MEDS ORDERED: fentaNYL PF VIAL 100 MCG/2 ML VIAL IVP ONE ×2 (11:45→13:15)
[2020-06-01] MEDS ORDERED: ONDANSETRON PF 4 MG/2 ML VIAL. ONE (11:48)
[2020-06-01] MEDS ORDERED: ONDANSETRON PF 4 MG/2 ML VIAL. IVP ONE (12:00)
[2020-06-01 12:41] LABS: BASO # 0.1 x10^3/uL (0.0-0.2); BASO % 1 % (0-3); EOS # 0.3 x10^3/uL (0.0-0.7); EOS % 4 % (0-3); HEMATOCRIT 32.6 % (39.0-53.0); LYMPH # 0.6 x10^3/uL (1.0-4.8); LYMPH % 8 % (24-48); MEAN CORPUSCULAR HEMOGLOBIN 31 pg (25-35); MEAN CORPUSCULAR HGB CONC 34 g/dL (31-37); MEAN CORPUSCULAR VOLUME 93 fL (79-100); MONO # 0.4 x10^3/uL (0.0-1.1); MONO % 6 % (0-9); NEUT # 6.2 x10^3/uL (1.8-7.7); NEUT % 82 % (31-73); PLATELET COUNT 214 x10^3/uL (140-400); RED BLOOD COUNT 3.51 x10^6/uL (4.30-5.70); RED CELL DISTRIBUTION WIDTH 18.1 % (11.5-14.5); WHITE BLOOD COUNT 7.5 x10^3/uL (4.0-11.0)
[2020-06-01 12:48] LABS: CALCIUM 8.9 mg/dL (8.5-10.1); CREATININE 4.2 mg/dL (0.7-1.3); GFR 14.4; POTASSIUM 3.5 mmol/L (3.5-5.1)
--- NOTE | 2020-06-01 12:51 | RAD ---
XR CHEST 1V 06/01/2020 12:16 PM INDICATION: Shortness of air COMPARISON: 02/24/2020 TECHNIQUE: Portable frontal view of the chest is provided. FINDINGS: The cardiomediastinal silhouette is similar in appearance. Small right and trace left pleural effusio n with adjacent compressive atelectasis versus infiltrate. No significant pulmonary vascular congesti on or pneumothorax. Suspect a soft tissue nodule in the right upper lobe measuring 8 mm. Further evaluation with chest CT could be of benefit. No suspicious osseous abnormality. IMPRESSION: New small right pleural effusion and trace left pleural effusion with adjacent basilar atelectasis ve rsus infiltrate. Suspect a soft tissue nodule in the right upper lobe measuring 8 mm. Further characterization with ch est CT could be of benefit. Electronically signed by: Marie Duncan MD (06/01/2020 12:49 PM) [facility]
[2020-06-01 12:52] LABS: ALBUMIN 2.7 g/dL (3.4-5.0); ALBUMIN/GLOBULIN RATIO 0.6 (1.0-1.7); TOTAL PROTEIN 7.3 g/dL (6.4-8.2)
--- NOTE | 2020-06-01 13:03 | RAD ---
PQRS Compliance Statement: One or more of the following individualized dose reduction techniques were utilized for this examinat ion: 1. Automated exposure control 2. Adjustment of the mA and/or kV according to patient size 3. Use of iterative reconstruction technique CT abdomen/pelvis without contrast 06/01/2020 11:55 AM INDICATION: Left upper quadrant pain. COMPARISON: CT abdomen/pelvis 04/28/2020 TECHNIQUE: Multiple axial CT images of the abdomen and pelvis were obtained without intravenous contr ast. Coronal and sagittal reformats are provided. FINDINGS: Stable appearance of a small to moderate pleural effusion with adjacent breast atelectasis versus inf iltrate. There is a trace left pleural effusion with adjacent compressive atelectasis versus infiltra te, not significant changed. Heart size within normal limits. Three-vessel coronary artery vascular c alcifications are identified. Mitral annular calcifications are present. Evaluation of solid abdomina l viscera is limited by lack of intravenous contrast. Liver is normal in appearance. Calcifications w ithin the spleen likely represent sequela of prior granulomatous exposure. Adrenal glands are normal in appearance. Mild fatty atrophy of the pancreas. Gallbladder is present without adjacent inflammati on. Abdominal aorta is normal in caliber. There is a left periaortic lymph node with normal fatty hilum m easuring 1.5 cm (series 2, image 38). Additional subcentimeter/peritoneal lymph nodes appear stable. Aortocaval lymph node measures 6 mm, stable (series 2, image 57). IVC filter is present. Right inspector aluminum boat al iliac lymph nodes are borderline enlarged measuring up to 1.5 cm (series 2, image 79). Right commo n femoral lymph node measures 1.9 cm (series 2, image 85). Right inguinal left and measures 1.6 cm, s table (series 2, image 91). There is a ventral abdominal hernia asymmetric to the left measuring 7.6 cm at the origin. This contains a loop of transverse colon which is nondilated. No bowel obstruction or inflammation. Appendix is not definitively visualized. No anastomosis identified in the right lowe r quadrant. There is atrophy of the kidneys. No hydronephrosis or suspicious renal mass. Urinary bladder is withi n normal limits given degree of distention. Prostate and seminal vesicles are normal. There is bilate ral flank edema. No suspicious osseous abnormality is identified. IMPRESSION: IMPRESSION: 1. Stable small to moderate right pleural effusion with adjacent compressive atelectasis versus infi ltrate. Trace left pleural effusion with adjacent compressive atelectasis versus infiltrate, stable. 2. Stable borderline enlarged retroperitoneal and pelvic lymph nodes. 3. Ventral abdominal hernia asymmetric to the left containing a loop of nondilated transverse colon. No bowel obstruction or inflammation. Electronically signed by: Marie Duncan MD (06/01/2020 1:01 PM) [facility]
[2020-06-01] MEDS ORDERED: HYDR-2761 PO (13:29)
--- NOTE | 2020-06-01 14:12 | EKG ---
[facility] [address] [place] [address] Test Date: 2020-06-01 Test Time: 11:58:12 Pat Name: ELENITA SHEPHERD Department: Room: Gender: M Director Medical: : 1955 Requested By: KRISTINA MARTIN Order Number: [id number] Reading MD: Juan Jose Harper Measurements Intervals Hertel Rate: 88 P: 47 IN: 202 QRS: -47 QRSD: 144 T: 54 QT: 412 QTc: 502 Interpretive Statements SINUS RHYTHM ABNORMAL LEFT AXIS DEVIATION LEFT ANTERIOR FASCICULAR BLOCK RIGHT BUNDLE BRANCH BLOCK BIFASCICULAR BLOCK Electronically Signed On 06-04-2020 10:16:49 [employer] by Juan Jose Harper
[2020-06-01] MEDS ORDERED: HYDROcodone/APAP 5/325MG 1 TAB TABLET PO ONE (14:45)
[2020-06-01 15:15] VITALS: BP 156/77
== END 2020-06-01 15:28 | disposition home or self-care (01) ==
LOC: ER 11:18
DX: R10.12 Left upper quadrant pain (principal); G89.29 Other chronic pain; R06.02 Shortness of breath; J44.9 Chronic obstructive pulmonary disease, unspecified; E78.00 Pure hypercholesterolemia, unspecified; I10 Essential (primary) hypertension; E11.40 Type 2 diabetes mellitus with diabetic neuropathy, unspecified; Z87.891 Personal history of nicotine dependence; Z86.14 Personal history of Methicillin resistant Staphylococcus aureus infection
CPT/HCPCS: 36415; 71045; 74176; 80053; 83690; 84484; 85025; 93005; 96374; 96375; 96376; 99285; J2405; J3010